=== PATIENT | male | born 1960 | race Caucasian/White ===

== ENCOUNTER 2017-02-07 12:51 | Observation (INO) | payer OTHER ==
[~2017-02-07] VITALS: Ht 165.1 cm; Wt 125.7 kg
[~2017-02-07 12:51] MED LIST: BACTROBAN NASAL1 GM; CITALOPRAM HBR20 MG PO; DILANTIN100 MG PO; FERROUS SULFAT325 M1 PO; LISINOPRIL10 MG PO; LOPRESSOR25 MG PO; MAGNESIUM OXID400 MG PO; MILK OF MA400 MG/5 M PO; MULTIVITAMINS1 EAC6 PO; NEXIUM40 MG PO; NORCO 5-325 TA1 EACH PO; PEPCID20 MG PO; PLAVIX75 MG PO; REGLAN10 MG PO; REQUIP1 MG PO; ULTRAM50 MG PO; ZOCOR40 MG PO; [UNRECOGNIZED DRUG - CODE] NEB
[2017-02-07] MEDS ORDERED: ASPIRIN 81 MG CHEW TAB PO STA (12:59)
[2017-02-07] MEDS ORDERED: MORPHINE SULFATE 4 MG/ML SYR IV STA (13:39)
[2017-02-07] MEDS ORDERED: ONDANSETRON HCL INJ 2 MG/ML VIAL IV STA (13:39)
[2017-02-07] MEDS ORDERED: MORPHINE SULFATE 2 MG/ML SYR IV NR (14:00)
[2017-02-07 14:07] LABS: BASOPHILS % 0.5 % (0.0-1.0); EOSINOPHILS # (AUTO) 0.3 (0.0-0.4); EOSINOPHILS % 3.6 % (0.0-6.0); HEMATOCRIT 31.7 % (38.2-49.6); HEMOGLOBIN 9.6 g/dL (14.0-18.0); LYMPHOCYTES # (AUTO) 1.1 (1.0-3.2); LYMPHOCYTES % 14.1 % (18.0-39.1); MEAN CORPUSCULAR HEMOGLOBIN 23.9 pg (28-32); MEAN CORPUSCULAR HGB CONC 30.3 g/dL (31-35); MEAN CORPUSCULAR VOLUME 78.9 fL (81-99); MONOCYTES # (AUTO) 0.9 (0.2-0.8); NEUTROPHILS # (AUTO) 5.7 (2.1-6.9); NEUTROPHILS % 70.4 % (38.7-80.0); PLATELET COUNT 290 x10e3/uL (140-360); RED BLOOD COUNT 4.02 x10e6/uL (4.3-5.7); RED CELL DISTRIBUTION WIDTH 19.1 % (11.7-14.4)
--- NOTE | 2017-02-07 14:28 | Diagnostic Imaging Report ---
PROCEDURE: CHEST SINGLE (PORTABLE) COMPARISON: None. INDICATIONS: CHEST PAIN FINDINGS: LUNGS: No consolidations or edema. PLEURA: No effusions or pneumothorax. HEART \T\ MEDIASTINUM: The heart is within normal size-limits. BONES \T\ SOFT TISSUES: No acute findings. Metallic needle fragment overlies the left shoulder lateral to the greater tuberosity of the humerus. CONCLUSION: No acute thoracic abnormality. Brigido Chase D.O. Dictated by: Brigido Chase D.O. on 02/07/2017 at 14:36 Electronically approved by: Brigido Chase D.O. on 02/07/2017 at 14:36
[2017-02-07 14:31] LABS: PROTHROMBIN TIME 13.7 seconds (11.9-14.5)
[2017-02-07 14:34] LABS: ALANINE AMINOTRANSFERASE 32 IU/L (0-55); ALBUMIN 3.4 g/dL (3.5-5.0); ALBUMIN/GLOBULIN RATIO 0.8 (0.8-2.0); ALKALINE PHOSPHATASE 83 IU/L (40-150); ANION GAP 13.7 mmol/L (8-16); BLOOD UREA NITROGEN 18 mg/dL (7-26); BUN/CREATININE RATIO 21 (6-25); CALCIUM 8.9 mg/dL (8.4-10.2); CARBON DIOXIDE 21 mmol/L (22-29); CHLORIDE 107 mmol/L (98-107); CREATINE KINASE 1057 IU/L (30-200); CREATININE, SERUM 0.87 mg/dL (0.72-1.25); EST GLOMERULAR FILTRATION RATE > 60 ML/MIN (60-); GLUCOSE 125 mg/dL (74-118); POTASSIUM 3.7 mmol/L (3.5-5.1); SODIUM 138 mmol/L (136-145)
[2017-02-07 14:40] LABS: TROPONIN I 0.023 ng/mL (0-0.300)
[2017-02-07] MEDS ORDERED: SODIUM CHLORIDE FLUSH 10 ML SYR INJ PRN (15:45)
[2017-02-07 16:58] LABS: CREATINE KINASE MB 7.7 ng/mL (0.00-5.00); TROPONIN I 0.016 ng/mL (0-0.300)
[2017-02-07] MEDS: MORPHINE SULFATE 2 MG/ML SYR IV PRN (17:05)
--- NOTE | 2017-02-07 17:51 | Consultation ---
DATE OF CONSULTATION: February 07, 2017 CARDIAC CONSULTATION REASON FOR CONSULTATION: Chest pain. HISTORY OF PRESENT ILLNESS: Mr. Fuentes is a 56-year-old gentleman with a past medical history of hypertension, hypercholesterolemia, coronary artery disease with a remote history of stenting, who has supposedly, according to himself, congestive heart failure and has had multiple recurrent admissions for chest pain and is not a very reliable historian. On chart review, it appears that also the patient has carried a diagnosis of perhaps schizophrenia and some mental disorder as well. He comes in complaining of chest pain, sharp in nature, moderate to severe, sternal, no radiations, no alleviating or exacerbating factors, and has been continuous for now over a day. He comes in with also complaints of bilateral achiness and calf cramps and reports that he had been in [place] in recent history, unclear as to the rationale why. Again, according to chart review, he appears to go between multiple hospitals and on my visit, despite his complaint of chest pain, appears very comfortable with stable hemodynamics and EKG showing normal sinus rhythm and no ischemia. He has underlying troponin of 0.022 for the first set. PAST MEDICAL HISTORY 1. Hypertension. 2. Hypercholesterolemia. 3. Schizophrenia. 4. Coronary artery disease with a history of prior stenting, unclear details. 5. Supposedly congestive heart failure, according to the patient. FAMILY HISTORY: Denies any family history of coronary disease. SOCIAL HISTORY: He denies smoking, alcohol or illicit drug use. ALLERGIES: HE SAYS HE IS ALLERGIC TO ASPIRIN, IBUPROFEN, NITROGLYCERIN, TYLENOL, ALEVE, AND ALL THOSE MEDICATIONS CAUSE HIM TO HAVE SWELLING. HOME MEDICATIONS: He says he only takes Plavix 75 mg daily but also appears to have been on Dilantin in the past for a seizure disorder, again very unclear what medications he takes. REVIEW OF SYSTEMS GENERAL: Denies any fevers, chills or any weight changes. HEENT: No headaches, visual complaints, sore throat, stuffy nose. RESPIRATORY: Has chronic exertional dyspnea class III. Denies pleuritic components of the chest pain. CARDIOVASCULAR: Chest pain as per HPI. Denies any palpitations, syncope. GI: Denies any abdominal pain, nausea, vomiting, bright red blood per rectum, melena, hematemesis. : Denies any dysuria, pyuria or change in urinary frequency. MUSCULOSKELETAL: Has chronic back pains, knee pains. Complaining of bilateral calf tenderness and aches in his muscles. ENDOCRINE: Denies any history of diabetes or thyroid issues. HEMATOLOGY: Positive for chronic anemia, but he is supposed to be taking iron supplementation. NEUROLOGIC: Denies any focal weakness, numbness. Does have a history of seizures, none in recent history. No stroke or TIA. REMAINDER: Negative otherwise. PHYSICAL EXAMINATION VITAL SIGNS: Height of 65 inches, weight of 278 pounds. BMI of 46.3. Temperature of 98.6, pulse of 70, respiratory rate of 16, blood pressure 116/86. IN GENERAL: This is a disheveled gentleman who is lying in bed and does not appear to be in any distress. HEENT: Pupils are equally round and reactive to light. Extraocular movements are intact. Oropharynx is clear. NECK: No elevation of jugular venous pulsation. No carotid bruits. CARDIOVASCULAR: Regular in rate and rhythm. Normal S1 and S2. A soft 1/6 systolic murmur at the left lower sternal border. LUNGS: Clear to auscultation bilaterally. There is no chest wall tenderness to palpation. ABDOMEN: Soft, nontender, obese, with normoactive bowel sounds. No hepatosplenomegaly. BACK: No costovertebral angle tenderness. EXTREMITIES: Warm with 1 to 2+ bilateral radial pulses, 1+ bilateral femoral pulses and absent pedal pulses. There is trace edema. NEUROLOGIC: He moves all 4 extremities. He has poor effort for movement, and it is difficult to ascertain further information. LABS: White count 8.1, hemoglobin 9.6, hematocrit of 31.7, platelets of 290. Sodium 138, potassium 3.7, chloride 107, bicarb 21, BUN 18, creatinine 0.87, glucose of 125. INR is 1.0. CK 1057, MB 7.9, troponin 0.0____. Albumin of 3.4. EKG reveals normal sinus rhythm, normal axis and no ST-T wave changes. Chest x-ray is unremarkable. DIAGNOSES 1. Sternal chest pain with no evidence of ischemia currently on EKG and strongly negative cardiac biomarkers despite long-standing ongoing chest pain, which kind of argue against an acute coronary syndrome at this present time, and has chronic recurrent hospitalizations with chest pain. 2. Remote history of coronary artery disease with a remote history of percutaneous coronary intervention in the past. 3. Chronic systolic heart failure, according to the patient. 4. Seizure disorder, suspect noncompliance with seizure medications. 5. Hypertension. 6. Obesity. 7. Medication noncompliance. PLAN/RECOMMENDATIONS 1. From a cardiovascular standpoint, will cycle his cardiac enzymes, check an echocardiogram to look at his left ventricular function. 2. Will put him back on his Plavix therapy. 3. Will put him back on his iron supplementation as the patient is currently with microcytic anemia. 4. Continue PPI therapy. 5. Aggressive risk-factor modification, medical therapy. 6. Will continue to follow this patient. Job#: [id number] EV
[2017-02-07] MEDS: FERROUS SULFATE 325 MG TAB PO SCH (18:14)
[2017-02-07] MEDS: MULTIVITAMINS/MINERALS TAB PO SCH (18:14)
[2017-02-07 18:24] VITALS: BP 156/92
[2017-02-07] MEDS: PHENYTOIN SODIUM EXT REL 100 MG CAP PO SCH (18:26)
[2017-02-07] MEDS: CARVEDILOL 3.125 MG TAB PO SCH (18:27)
[2017-02-07 18:52] VITALS: BP 156/92
[2017-02-07 20:00] VITALS: BP 120/67
[2017-02-08] VITALS: BP 114/59
[2017-02-08 02:03] LABS: CREATINE KINASE MB 5.6 ng/mL (0.00-5.00); TROPONIN I 0.008 ng/mL (0-0.300)
[2017-02-08 04:00] VITALS: BP 100/68
[2017-02-08] MEDS: MORPHINE SULFATE 2 MG/ML SYR IV PRN ×7 (05:10→23:51)
[2017-02-08 06:03] LABS: BASOPHILS % 0.5 % (0.0-1.0); EOSINOPHILS # (AUTO) 0.5 (0.0-0.4); EOSINOPHILS % 8.6 % (0.0-6.0); HEMATOCRIT 33.6 % (38.2-49.6); HEMOGLOBIN 10.1 g/dL (14.0-18.0); LYMPHOCYTES # (AUTO) 1.1 (1.0-3.2); MEAN CORPUSCULAR HEMOGLOBIN 24.4 pg (28-32); MEAN CORPUSCULAR HGB CONC 30.1 g/dL (31-35); MEAN CORPUSCULAR VOLUME 81.2 fL (81-99); MONOCYTES # (AUTO) 0.6 (0.2-0.8); MONOCYTES % 10.8 % (4.4-11.3); NEUTROPHILS # (AUTO) 3.7 (2.1-6.9); NEUTROPHILS % 61.8 % (38.7-80.0); PLATELET COUNT 274 x10e3/uL (140-360); RED BLOOD COUNT 4.14 x10e6/uL (4.3-5.7); RED CELL DISTRIBUTION WIDTH 19.4 % (11.7-14.4)
[2017-02-08 06:28] LABS: ALANINE AMINOTRANSFERASE 29 IU/L (0-55); ALBUMIN 3.2 g/dL (3.5-5.0); ALBUMIN/GLOBULIN RATIO 0.7 (0.8-2.0); ALKALINE PHOSPHATASE 90 IU/L (40-150); ANION GAP 12.9 mmol/L (8-16); BLOOD UREA NITROGEN 19 mg/dL (7-26); BUN/CREATININE RATIO 21 (6-25); CALCIUM 8.7 mg/dL (8.4-10.2); CARBON DIOXIDE 20 mmol/L (22-29); CHLORIDE 109 mmol/L (98-107); CHOL/HDL RATIO 4.8 (3.9-4.7); CHOLESTEROL 164 MD/DL (0-199); CREATINE KINASE 776 IU/L (30-200); CREATININE, SERUM 0.89 mg/dL (0.72-1.25); EST GLOMERULAR FILTRATION RATE > 60 ML/MIN (60-); GLUCOSE 176 mg/dL (74-118); HDL CHOLESTEROL 34 MG/DL (40-60); LDL CHOLESTEROL 112 MG/DL (60-130); POTASSIUM 3.9 mmol/L (3.5-5.1); SODIUM 138 mmol/L (136-145); TRIGLYCERIDES 90 MG/DL (0-149)
[2017-02-08 06:55] LABS: THYROID STIMULATING HORMONE 2.021 uIU/mL (0.350-4.940)
[2017-02-08 08:12] VITALS: BP 129/69
[2017-02-08 08:14] LABS: INR 1.25; PROTHROMBIN TIME 16.4 seconds (11.9-14.5)
[2017-02-08] MEDS: PHENYTOIN SODIUM EXT REL 100 MG CAP PO SCH ×2 (08:20→18:00)
[2017-02-08] MEDS: CLOPIDOGREL BISULFATE 75 MG TAB PO SCH (08:20)
[2017-02-08] MEDS: MULTIVITAMINS/MINERALS TAB PO SCH ×2 (08:20→18:00)
[2017-02-08] MEDS: FERROUS SULFATE 325 MG TAB PO SCH ×2 (08:20→18:00)
[2017-02-08] MEDS: CARVEDILOL 3.125 MG TAB PO SCH ×2 (08:20→18:00)
[2017-02-08] MEDS: PANTOPRAZOLE SOD 40 MG TABEC PO SCH (08:20)
[2017-02-08] MEDS ORDERED: HYDROCODONE/APAP 5MG-325MG TAB PO PRN (09:30)
[2017-02-08] MEDS ORDERED: FUROSEMIDE INJ 10 MG/ML 2 ML VIAL IV ONE (09:30)
--- NOTE | 2017-02-08 09:50 | History and Physical ---
CHIEF COMPLAINT: Chest pain and lower extremity swelling. HISTORY: Patient is a 56-year-old male visiting his mother here in [place]. The patient is from [facility]. He came in with chest pain. His CK level is high consistent with rhabdomyolysis. The patient is otherwise stable at this time. He is ambulatory. PAST MEDICAL HISTORY: Hypertension, hyperlipidemia, schizophrenia, coronary disease with previous stent, history of congestive heart failure. PAST SURGICAL HISTORY: Noncontributory. SOCIAL HISTORY: Patient does not smoke or use alcohol. No regular drugs. ALLERGIES: NAPROXEN, IBUPROFEN, ACETAMINOPHEN, ASPIRIN, NITROGLYCERIN, AND PENICILLIN. HOME MEDICATIONS: List reviewed. REVIEW OF SYSTEMS: As mentioned above. Bilateral lower extremity swelling. PHYSICAL EXAMINATION VITAL SIGNS: Temperature is 98, blood pressure 129/69, pulse rate 78, respirations 18. GENERAL: The patient is not in acute distress. He is ambulatory. HEENT: Normocephalic, atraumatic and anicteric. NECK: Supple grossly. PULMONARY: Diminished breath sounds. CARDIOVASCULAR: S1 and S2. Regular rate and rhythm. ABDOMEN: Soft and unremarkable. Obese. EXTREMITIES: No cyanosis or edema. NEUROLOGIC: No focal deficit. LABORATORY: WBC is 8, hemoglobin 10, hematocrit 32, platelets is 290,000. Chemistries: Sodium is 138, potassium 3.7, chloride 107, bicarb 21, BUN 18, creatinine 0.8, glucose 125. CK level is 1057. IMPRESSION 1. Rhabdomyolysis. 2. Chest pain. 3. Lower extremity pain. 4. Multiple chronic baseline problems. PLAN: IV Lasix. Continue with home medications. Pain control. Monitor CK level. The patient should be able to go home within 24-48 hours. Job#: [id number] KRISTIE
[2017-02-08] MEDS ORDERED: FUROSEMIDE INJ 10 MG/ML 4 ML VIAL IV ONE ×2 (11:30→14:30)
[2017-02-08 12:17] VITALS: BP 135/71
[2017-02-08 16:42] VITALS: BP 148/77
[2017-02-08] MEDS ORDERED: ENOXAPARIN SOD INJ 40 MG/0.4 ML SYR SC SCH (17:00)
[2017-02-08 19:45] VITALS: BP 132/84
[2017-02-08] MEDS: ONDANSETRON HCL INJ 2 MG/ML VIAL IV PRN (20:51)
[2017-02-09 00:59] VITALS: BP 155/78
[2017-02-09] MEDS: MORPHINE SULFATE 2 MG/ML SYR IV PRN ×3 (03:20→09:45)
[2017-02-09] MEDS: ONDANSETRON HCL INJ 2 MG/ML VIAL IV PRN (06:13)
[2017-02-09 06:45] LABS: ANION GAP 9.7 mmol/L (8-16); BLOOD UREA NITROGEN 19 mg/dL (7-26); BUN/CREATININE RATIO 23 (6-25); CALCIUM 8.4 mg/dL (8.4-10.2); CARBON DIOXIDE 25 mmol/L (22-29); CHLORIDE 107 mmol/L (98-107); CREATINE KINASE 471 IU/L (30-200); CREATININE, SERUM 0.83 mg/dL (0.72-1.25); EST GLOMERULAR FILTRATION RATE > 60 ML/MIN (60-); GLUCOSE 155 mg/dL (74-118); POTASSIUM 3.7 mmol/L (3.5-5.1); SODIUM 138 mmol/L (136-145)
[2017-02-09] MEDS: MULTIVITAMINS/MINERALS TAB PO SCH (08:36)
[2017-02-09] MEDS: FERROUS SULFATE 325 MG TAB PO SCH (08:36)
[2017-02-09] MEDS: CARVEDILOL 3.125 MG TAB PO SCH (08:36)
[2017-02-09] MEDS: PANTOPRAZOLE SOD 40 MG TABEC PO SCH (08:36)
[2017-02-09] MEDS: PHENYTOIN SODIUM EXT REL 100 MG CAP PO SCH (08:36)
[2017-02-09] MEDS: CLOPIDOGREL BISULFATE 75 MG TAB PO SCH (08:36)
== END 2017-02-09 10:40 | disposition home or self-care (01) ==
LOC: ER 12:51 → ERHOLD 17:23 → IMCU 17:25
PROVIDERS: ADMIT Internal Medicine; ATTEND Internal Medicine
DX: M62.82 Rhabdomyolysis (principal); R07.9 Chest pain, unspecified; I25.10 Atherosclerotic heart disease of native coronary artery without angina pectoris; Z95.5 Presence of coronary angioplasty implant and graft; I11.0 Hypertensive heart disease with heart failure; I50.22 Chronic systolic (congestive) heart failure; G40.909 Epilepsy, unspecified, not intractable, without status epilepticus; Z91.14 Patient's other noncompliance with medication regimen; E66.9 Obesity, unspecified; Z68.42 Body mass index [BMI] 45.0-49.9, adult
CPT/HCPCS: 36415 ×3; 71010; 80048; 80053 ×2; 80061; 82550 ×3; 82553 ×2; 84443; 84484 ×2; 85025 ×2; 85610 ×2; 85730; 93005; 93306; 93970; 96374; 96376; 99284; G0378 ×3; J1650; J1940; J2270 ×3; J2405 ×3

== ENCOUNTER 2017-08-16 19:13 | Emergency (ER) | payer OTHER ==
[~2017-08-16] VITALS: Ht 165.1 cm; Wt 125.6 kg
== END 2017-08-16 20:02 | disposition left against medical advice (07) ==
LOC: ER 19:13
DX: S80.01XA Contusion of right knee, initial encounter (principal); S20.219A Contusion of unspecified front wall of thorax, initial encounter; W18.39XA Other fall on same level, initial encounter; Y93.01 Activity, walking, marching and hiking; Y92.488 Other paved roadways as the place of occurrence of the external cause; F31.9 Bipolar disorder, unspecified; I25.2 Old myocardial infarction
CPT/HCPCS: 99281

== ENCOUNTER 2017-09-25 16:01 | Emergency (ER) | payer OTHER ==
[~2017-09-25] VITALS: Ht 165.1 cm; Wt 125.6 kg
[2017-09-25 16:27] VITALS: BP 135/84
== END 2017-09-25 16:33 | disposition left against medical advice (07) ==
LOC: ER 16:01
DX: R07.9 Chest pain, unspecified (principal)
CPT/HCPCS: 99283

== ENCOUNTER 2017-11-09 17:31 | Emergency (ER) | payer OTHER | END 2017-11-09 17:45 | disposition short-term general hospital (02) | LOC: ER 17:31 | DX: R07.9 Chest pain, unspecified (principal) ==

== ENCOUNTER 2019-04-24 20:55 | Emergency (ER) | payer MEDICARE, OTHER ==
[~2019-04-24] VITALS: Ht 165.1 cm; Wt 125.6 kg
--- NOTE | 2019-04-24 21:00 | NUR ---
PT REQUESTS TO LEAVE, DENIES NEED FOR CARDIAC WORKUP; ER MD IN TRIAGE SPEAKING TO PT; PT REFUSED TO SIGN AMA FORM
--- OUTSIDE RECORDS SUMMARY | 2019-04-24 21:10 | XMS REPORT ---
Author Author [facility] Address Unknown Phone Unavailable Support Name Relationship Address Phone FELECIA ASTORGA PRS [address] [place] [address] FELECIA ASTORGA PRS [address] [place] [address] NO, ONE PRS [address] [place] [address] NONE, OTHER PRS [address] [place] [address] FELECIA ASTORGA PRS [address] [place] [address] AMEYA, CARLOS PRS [address] [place] [address] NONE, GIVEN PRS [address] [place] [address] FELECIA ASTORGA PRS [address] [place] [address] CORRINE RCUZ PRS [address] [place] [address] MARFLORENCIO WARD PRS [address] [place] [address] FELECIA ASTORGA PRS [address] [place] [address] FELECIA ASTORGA PRS [address] [place] [address] RELATIVE, [place] [address] [place] [address] NO, ONE PRS [address] [place] [address] NONE, LIST REFUSED TO PRS [address] [place] [address] NONE, LIST REFUSED TO PRS [address] [place] [address] NONE, GIVEN PRS [address] [facility] [place] [address] NONE, OTHER PRS [address] [place] [address] FELECIA ASTORGA PRS [address] [place] [address] NO, OTHER PRS [address] [place] [address] Care Team Providers Care Raised Printer Name Role Phone UNKNOWN, REFERRING PP Unavailable BARRAGAN, DR LEE Unavailable Unavailable INÉS, DR Diomedes LOAIZA Unavailable Unavailable BA, DR CHAUDHARY Unavailable Unavailable PHILLIPS, DR Victor Manuel COOLEY Unavailable Unavailable JOB, DR Thomas MACIAS Unavailable Unavailable LAUREN, DR BRID Unavailable Unavailable KAELISHA, DR RUIZ Unavailable Unavailable Mandy RIGGS Unavailable Unavailable RYAN NEWSOME Unavailable Unavailable ANURADHA MARSHALL Unavailable Unavailable , DR UGALDE Unavailable Unavailable ANGELA, DR Nori ZHAO Unavailable Unavailable AN, DR MURRIETA Unavailable Unavailable PHILLIPS, DR ANDREWS Unavailable Unavailable LATANYA, DR ACUÑA Unavailable Unavailable Liss LARSEN Unavailable Unavailable Michell Harp Unavailable Unavailable LUIGI, WILL Unavailable Unavailable AZIZ, SAMEH Unavailable Unavailable FELIZ, DR MCFARLANE Unavailable Unavailable NITHYA, DR MISHRA Unavailable Unavailable FRANK, DR LIZ Unavailable Unavailable WANG, DR CUMMISN Unavailable Unavailable KERLINE, DR ARRIOLA Unavailable Unavailable VERITO HERNANDEZ Unavailable Unavailable PILOAVNIKAMA Unavailable Unavailable SADIA, DR Jeremie MORELAND Unavailable Unavailable BARRAGAN, CHANELLE RONNI Unavailable Unavailable GILBERTO ROSARIO Unavailable Unavailable AFUWAPE, LUKUMAN Unavailable Unavailable Shavonne WILSON Unavailable Unavailable BEEDSHAYNEORY Unavailable Unavailable ROOT, G MIRANDA Unavailable Unavailable GARCIA, JOHN Unavailable Unavailable PETHE SADASHIWendy PARK Unavailable Unavailable AGUILA WORLEY Unavailable Unavailable Jing HAMPTON Unavailable Unavailable PHILLIPSNicolas CADENA Unavailable Unavailable JONI FAJARDO Unavailable Unavailable Fausto Norton Unavailable Unavailable BRA, DR BELLE Unavailable Unavailable DANIA DONYA Unavailable Unavailable BULMARO MARTINEZ Unavailable Unavailable SILVA, - MSONTHI Unavailable Unavailable TUCKER HERNANDEZ M.D. Unavailable Unavailable NISREEN STEPHENSON M.D. Unavailable Unavailable Payers Payer Name Policy Type Policy Number Effective Date Expiration Date Problems This patient has no known problems. Allergies, Adverse Reactions, Alerts Allergy Name Allergy Type Status Severity Reaction(s) Onset Date Inactive Date Treating Clinician Comments Penicillins DA Active 2019-04-03 00:00:00 Sulfa (Sulfonamide Antibiotics) DA Active 2019-04-03 00:00:00 nitroglycerin DA Active SV 2019-04-03 00:00:00 aspirin DA Active AK 2019-04-03 00:00:00 acetaminophen DA Active SV 2019-04-03 00:00:00 ibuprofen DA Active SV 2019-04-03 00:00:00 naproxen DA Active ND 2019-04-03 00:00:00 tramadol DA Active ND 2019-04-03 00:00:00 nitroglycerin DA Active U 2019-04-01 00:00:00 aspirin DA Active U 2019-04-01 00:00:00 acetaminophen DA Active U 2019-04-01 00:00:00 ibuprofen DA Active U 2019-04-01 00:00:00 nitroglycerin DA Active AK 2019-03-31 00:00:00 aspirin DA Active AK 2019-03-31 00:00:00 ibuprofen DA Active AK 2019-03-31 00:00:00 acetaminophen DA Active AK 2019-03-31 00:00:00 Penicillins DA Active 2019-03-26 00:00:00 Sulfa (Sulfonamide Antibiotics) DA Active 2019-03-26 00:00:00 nitroglycerin DA Active 2019-03-26 00:00:00 aspirin DA Active AK 2019-03-26 00:00:00 acetaminophen DA Active 2019-03-26 00:00:00 ibuprofen DA Active SV 2019-03-26 00:00:00 naproxen DA Active MO 2019-03-26 00:00:00 tramadol DA Active MO 2019-03-26 00:00:00 nitroglycerin DA Active AK 2019-01-30 00:00:00 aspirin DA Active AK 2019-01-30 00:00:00 ibuprofen DA Active AK 2019-01-30 00:00:00 tramadol DA Active U 2019-01-27 00:00:00 nitroglycerin DA Active AK 2019-01-26 00:00:00 aspirin DA Active AK 2019-01-26 00:00:00 ibuprofen DA Active AK 2019-01-26 00:00:00 NSAIDS (Non-Steroidal Anti-Inflamma DA Active MO 2018-04-12 00:00:00 Penicillins DA Active MO 2018-04-12 00:00:00 nitroglycerin DA Active MO 2018-04-12 00:00:00 acetaminophen DA Active MO 2018-04-12 00:00:00 Penicillins DA Active SV 2018-04-02 00:00:00 Sulfa (Sulfonamide Antibiotics) DA Active SV 2018-04-02 00:00:00 nitroglycerin DA Active SV 2018-04-02 00:00:00 aspirin DA Active AK 2018-04-02 00:00:00 acetaminophen DA Active SV 2018-04-02 00:00:00 ibuprofen DA Active SV 2018-04-02 00:00:00 naproxen DA Active MO 2018-04-02 00:00:00 tramadol DA Active MO 2018-04-02 00:00:00 Penicillins DA Active SV 2018-03-19 00:00:00 Sulfa (Sulfonamide Antibiotics) DA Active SV 2018-03-19 00:00:00 nitroglycerin DA Active SV 2018-03-19 00:00:00 aspirin DA Active AK 2018-03-19 00:00:00 acetaminophen DA Active SV 2018-03-19 00:00:00 ibuprofen DA Active SV 2018-03-19 00:00:00 naproxen DA Active MO 2018-03-19 00:00:00 tramadol DA Active MO 2018-03-19 00:00:00 Penicillins DA Active SV 2018-03-09 00:00:00 Sulfa (Sulfonamide Antibiotics) DA Active SV 2018-03-09 00:00:00 nitroglycerin DA Active SV 2018-03-09 00:00:00 aspirin DA Active AK 2018-03-09 00:00:00 acetaminophen DA Active SV 2018-03-09 00:00:00 ibuprofen DA Active SV 2018-03-09 00:00:00 naproxen DA Active MO 2018-03-09 00:00:00 tramadol DA Active MO 2018-03-09 00:00:00 aspirin DA Active U 2018-01-19 00:00:00 ibuprofen DA Active AK 2018-01-19 00:00:00 naproxen DA Active AK 2018-01-19 00:00:00 Penicillins DA Active SV 2018-01-15 00:00:00 Sulfa (Sulfonamide Antibiotics) DA Active SV 2018-01-15 00:00:00 nitroglycerin DA Active SV 2018-01-15 00:00:00 aspirin DA Active AK 2018-01-15 00:00:00 acetaminophen DA Active SV 2018-01-15 00:00:00 ibuprofen DA Active SV 2018-01-15 00:00:00 naproxen DA Active MO 2018-01-15 00:00:00 tramadol DA Active MO 2018-01-15 00:00:00 nitroglycerin DA Active SV 2017-11-09 00:00:00 acetaminophen DA Active SV 2017-11-09 00:00:00 ibuprofen DA Active SV 2017-11-09 00:00:00 ASPRIN DA Active 2017-11-09 00:00:00 Penicillins DA Active 2017-10-31 00:00:00 Sulfa (Sulfonamide Antibiotics) DA Active 2017-10-31 00:00:00 aspirin DA Active AK 2017-10-31 00:00:00 naproxen DA Active MO 2017-10-31 00:00:00 tramadol DA Active MO 2017-10-31 00:00:00 nitroglycerin DA Active 2017-10-31 00:00:00 acetaminophen DA Active 2017-10-31 00:00:00 ibuprofen DA Active 2017-10-31 00:00:00 Penicillins DA Active 2017-09-25 00:00:00 Sulfa (Sulfonamide Antibiotics) DA Active 2017-09-25 00:00:00 nitroglycerin DA Active 2017-09-25 00:00:00 aspirin DA Active AK 2017-09-25 00:00:00 acetaminophen DA Active SV 2017-09-25 00:00:00 ibuprofen DA Active SV 2017-09-25 00:00:00 naproxen DA Active MO 2017-09-25 00:00:00 tramadol DA Active MO 2017-09-25 00:00:00 Medications This patient has no known medications. Encounters Start Date/Time End Date/Time Encounter Type Admission Type Attending [facility] Facility Care Department Encounter ID 2017-12-01 11:26:17 Inpatient [facility] [id number] 2017-11-30 21:47:17 Inpatient [facility] [id number] 2017-11-29 12:10:45 Inpatient [facility] [id number] 2017-11-29 00:00:00 Inpatient [facility] [id number] 2017-11-29 00:00:00 Inpatient [facility] [id number] 2017-11-29 00:00:00 Inpatient [facility] [id number] 2017-11-28 17:09:46 Inpatient [facility] [id number] 2017-11-28 00:00:00 Inpatient [facility] [id number] 2017-11-27 23:30:40 Inpatient [facility] [id number] 2016-04-07 01:20:00 Inpatient C [facility] [id number] 2019-04-24 15:41:00 2019-04-24 15:41:00 Emergency E MHNW MHNW [id number] 2019-04-20 04:22:00 2019-04-20 04:22:00 Outpatient E M[facility] MED [id number] 2019-04-19 13:03:00 2019-04-19 13:03:00 Emergency E MHTW MHTW [id number] 2019-04-16 22:06:00 2019-04-16 22:06:00 Emergency E MHNE MHNE [id number] 2019-04-12 21:38:00 2019-04-12 21:38:00 Outpatient E MHKM MED [id number] 2019-04-12 07:03:00 2019-04-12 07:03:00 Outpatient E [facility] MED [id number] 2019-04-11 22:53:00 2019-04-11 22:53:00 Emergency E MHFB MHFB [id number] 2019-04-03 14:13:00 2019-04-03 14:13:00 Emergency E MHSE MHSE [id number] 2019-03-26 07:37:00 2019-03-26 08:11:00 Emergency E ROSA BARRAGAN [facility] [id number] 2019-03-24 21:30:00 2019-03-24 21:30:00 Outpatient E MHFB MED [id number] 2019-03-21 22:39:00 2019-03-21 22:39:00 Emergency E MHSE MHSE [id number] 2019-03-18 20:44:00 2019-03-18 23:20:00 Emergency E JOSSE CONTE [facility] ECC [id number] 2019-03-17 19:08:00 2019-03-17 19:08:00 Outpatient E [facility]FB MED [id number] 2019-03-17 11:42:00 2019-03-17 11:42:00 Emergency E MHKM MHKM [id number] 2019-03-12 22:18:00 2019-03-13 14:40:00 Emergency E JET SCOTT [facility] E[facility] [id number] 2019-03-12 16:25:00 2019-03-12 16:25:00 Emergency E MHFB MHFB [id number] 2019-03-04 01:49:00 2019-03-05 13:35:00 Emergency E JACQUELINE LENORA [facility] [id number] 2019-03-03 14:09:00 2019-03-03 14:50:00 Emergency E GILBERTO KAISER [facility] [id number] 2019-02-28 19:08:00 2019-02-28 19:08:00 Emergency E MHKM MHKM [id number] 2019-02-24 21:18:00 2019-02-24 21:18:00 Inpatient E [facility]FB MED [id number] 2019-02-23 02:50:00 2019-02-23 12:34:00 Emergency E MARGE AGUILAR [facility] [id number] 2019-02-16 15:10:00 2019-02-16 15:10:00 Emergency E MHKM MHKM [id number] 2019-02-15 22:28:00 2019-02-15 22:28:00 Emergency E MHFB MHFB [id number] 2019-02-14 15:42:00 2019-02-14 15:42:00 Emergency E MHKM MHKM [id number] 2019-02-13 03:08:00 2019-02-13 03:08:00 Outpatient E [facility] [id number] 2019-02-09 19:18:00 2019-02-09 22:25:00 Emergency E JOSEPH OAKES [facility] [id number] 2019-02-08 00:39:00 2019-02-08 00:39:00 Outpatient E [facility] MED [id number] 2019-02-03 07:05:00 2019-02-03 07:05:00 Emergency E MHTW MHTW [id number] 2019-02-02 19:36:00 2019-02-02 22:09:00 Emergency E LENORA PHILLIPS [facility] [id number] 2019-02-01 22:24:00 2019-02-01 22:24:00 Emergency E MHMC MHMC [id number] 2019-02-01 14:59:00 2019-02-01 14:59:00 Emergency E MHKM MHKM [id number] 2019-01-19 15:39:00 2019-01-19 15:39:00 Emergency E MHSE MHSE 7514 2019-01-19 10:18:00 2019-01-19 10:18:00 Emergency E MHBL MHBL 7513 2019-01-18 18:59:00 2019-01-18 18:59:00 Emergency E MHFB MHFB [id number] 2019-01-18 16:55:00 2019-01-18 17:52:00 Emergency E JOSEPH OAKES [facility] [id number] 2019-01-17 22:11:00 2019-01-17 22:11:00 Outpatient E [facility] MED [id number] 2018-03-08 20:57:00 2018-03-08 21:55:00 Emergency E ROSA BARRAGAN [facility] [id number] 2018-02-22 16:39:00 2018-02-22 17:50:00 Emergency E ROSA BARRAGAN [facility] [id number] 2018-02-13 22:24:00 2018-02-13 22:43:00 Emergency E MARGE AGUILAR [facility] [id number] 2018-02-11 01:49:00 2018-02-12 12:30:00 Emergency E MARGE AGUILAR [facility] [id number] 2018-02-04 03:58:00 2018-02-04 04:18:00 Outpatient E BAJET [facility] [id number] 2018-02-03 22:50:00 2018-02-03 23:20:00 Outpatient E BAJET [facility] [id number] 2018-02-02 14:39:00 2018-02-02 16:35:00 Emergency E PHILLIPSLENORA [facility] [id number] 2018-01-27 04:32:00 2018-01-27 05:40:00 [facility] [id number] 2018-01-18 16:20:00 2018-01-18 18:55:00 Emergency E CECE MILLER [facility] [id number] 2018-01-13 09:09:00 2018-01-13 09:15:00 Emergency E CECE MILLER [facility] [id number] 2018-01-12 11:30:24 2018-01-12 11:30:24 Emergency [facility] [id number] 2018-01-12 07:13:37 2018-01-12 07:13:37 Emergency [facility] [id number] 2018-01-11 14:48:00 2018-01-11 15:44:00 Emergency E JOSSE CONTE [facility] [id number] 2018-01-04 22:19:00 2018-01-05 16:53:00 Outpatient MICHELL SCHMITZ [facility] [id number] 2017-12-28 15:41:00 2017-12-28 16:15:00 Emergency E JULIANA PHILLIPS [facility] [id number] 2017-12-28 00:00:00 2017-12-28 00:00:00 Outpatient [facility] [id number] 2017-11-27 22:19:21 2017-11-27 22:19:21 Emergency [facility] [id number] 2017-11-27 21:58:24 2017-11-27 21:58:24 Emergency [facility] [id number] 2017-11-27 21:47:52 2017-11-27 21:47:52 Emergency [facility] [id number] 2017-11-27 20:56:37 2017-11-27 20:56:37 Outpatient [facility] [id number] 2017-11-27 07:09:00 2017-11-27 07:35:00 Emergency E JULIANA PHILLIPS [facility] [id number] 2017-11-25 18:38:00 2017-11-26 14:01:00 Outpatient E DOMENICO RENAE [facility] TELE [id number] 2017-11-17 19:53:00 2017-11-17 19:53:00 Emergency [facility] [id number] 2017-11-09 13:50:00 2017-11-09 13:50:00 Emergency [facility] [id number] 2017-11-09 00:19:00 2017-11-09 00:58:00 Emergency E BARRAGAN, ROSA [facility] [id number] 2017-10-30 18:20:00 2017-10-30 19:40:00 Emergency E LENORA PHILLIPS [facility] [id number] 2017-10-28 23:13:00 2017-10-28 23:38:00 Emergency E JOSSE CONTE [facility] [id number] 2017-10-19 14:18:00 2017-10-19 14:55:00 Emergency E JULIANA PHILLIPS [facility] [id number] 2017-10-16 02:12:00 2017-10-16 02:50:00 Emergency E KYAW LARSEN [facility] [id number] 2017-09-30 00:00:00 2017-09-30 00:00:00 Outpatient [facility] [id number] 2017-09-26 04:26:28 2017-09-26 04:26:28 Emergency [facility] [id number] 2017-09-24 19:13:38 2017-09-24 19:13:38 Emergency [facility] [id number] 2017-09-24 18:23:48 2017-09-24 18:23:48 Emergency [facility] [id number] 2017-09-14 11:55:02 2017-09-14 11:55:02 Outpatient [facility] [id number] 2017-09-14 06:28:54 2017-09-14 06:28:54 Emergency [facility] [id number] 2017-09-14 04:49:51 2017-09-14 04:49:51 Emergency [facility] [id number] 2017-09-14 03:32:53 2017-09-14 03:32:53 Outpatient [facility] [id number] 2017-09-14 01:56:19 2017-09-14 01:56:19 Outpatient [facility] [id number] 2017-08-21 12:41:08 2017-08-21 12:41:08 Emergency [facility] [id number] 2017-08-21 10:09:55 2017-08-21 10:09:55 Emergency [facility] [id number] 2017-08-21 09:21:50 2017-08-21 09:21:50 Emergency [facility] [id number] 2017-08-21 07:41:58 2017-08-21 07:41:58 Outpatient [facility] [id number] 2017-08-08 13:58:00 2017-08-08 13:58:00 Emergency [facility] [id number] 2017-08-08 01:53:00 2017-08-08 01:53:00 Emergency [facility] [id number] 2017-08-04 03:38:16 2017-08-04 03:38:16 Emergency [facility] [id number] 2017-08-03 20:02:56 2017-08-03 20:02:56 Emergency [facility] [id number] 2017-08-03 19:25:26 2017-08-03 19:25:26 Emergency [facility] [id number] 2017-08-03 18:00:13 2017-08-03 18:00:13 Emergency [facility] [id number] 2017-07-22 08:56:00 2017-08-03 11:28:00 Inpatient E DENYS PIPER [facility] [id number] 2017-07-18 08:26:00 2017-07-18 11:00:00 Emergency E CONTEYUSEFEN [facility] [id number] 2017-07-08 18:55:00 2017-07-08 19:18:00 Emergency E INÉS JOSSE [facility] [id number] 2017-07-08 18:23:00 2017-07-08 18:32:00 Emergency E CONTE JOSSE [facility] [id number] 2017-06-27 02:20:00 2017-06-27 15:44:00 Emergency E BARRAGAN, ROSA [facility] [id number] 2017-06-21 20:11:00 2017-06-21 22:24:00 Emergency E ROSA BARRAGAN [facility] [id number] 2017-06-15 20:22:00 2017-06-16 12:00:00 Emergency E JACQUELINE JULIANA [facility] [id number] 2017-06-12 04:57:00 2017-06-12 07:25:00 Emergency E CONTE JOSSE [facility] [id number] 2017-06-12 04:12:00 2017-06-12 04:20:00 Emergency E CONTE JOSSE [facility] [id number] 2017-06-01 19:39:00 2017-06-01 19:58:00 Emergency E LENORA PHILLIPS [facility] [id number] 2017-05-26 17:44:00 2017-05-27 07:03:00 Emergency E JOSSE CONTE [facility] [id number] 2017-05-24 04:31:00 2017-05-24 05:00:00 Emergency E LARSENKYAW GIRARD [facility] [id number] 2017-05-23 20:28:00 2017-05-23 22:12:00 Emergency E LENORA PHILLIPS [facility] [id number] 2017-05-22 12:58:00 2017-05-22 13:35:00 Emergency E JULIANA PHILLIPS [facility] [id number] 2017 20:02:00 2017-05-15 12:47:00 Emergency E JULIANA PHILLIPS [facility] [id number] 2017-05-10 23:35:00 2017-05-12 12:42:00 Outpatient DANICA WEEMS [facility] TELE [id number] 2017-05-09 20:49:00 2017-05-09 23:05:00 Emergency E ROSA BARRAGAN [facility] [id number] 2017-05-01 13:19:00 2017-05-02 14:33:00 Outpatient E DOMENICO RENAE [facility] TELE [id number] 2017-04-25 14:17:00 2017-04-25 15:00:00 Emergency E JOSSE CONTE [facility] [id number] 2017-04-17 01:31:00 2017-04-19 17:23:00 Inpatient E GEOVANNIOLYSHALONDA MCGUIRE [facility] TELE [id number] 2017-04-08 16:49:00 2017-04-08 17:29:00 Emergency E MARIA G WANG [facility] [id number] 2017-03-21 13:42:00 2017-03-21 15:30:00 Emergency E JULIANA PHILLIPS [facility] [id number] 2017-03-14 08:12:00 2017-03-14 08:51:00 Emergency E KYAW LARSEN [facility] [id number] 2017-03-11 23:30:00 2017-03-12 21:33:00 Outpatient E KERLINE, ZEINAB [facility] TELE [id number] 2017-02-16 14:12:00 2017-02-17 05:00:00 Emergency E MARGE AGUILAR [facility] [id number] 2017-02-15 18:55:00 2017-02-15 22:08:00 Emergency E JET SCOTT [facility] [id number] 2017-02-13 22:18:00 2017-02-15 16:19:00 Inpatient C ZEINAB CHURCHILL [facility] TELE [id number] 2017-02-09 16:24:00 2017-02-09 16:38:00 Emergency E MARGE AGUILAR [facility] [id number] 2017-02-06 02:54:00 2017-02-06 02:54:00 Emergency E [facility] MED [id number] 2017-02-05 23:34:00 2017-02-05 23:34:[address] [facility] MED [id number] 2017-02-02 20:02:00 2017-02-02 20:02:[address] [facility] MED [id number] 2017-02-02 18:48:00 2017-02-02 18:48:00 Emergency E [facility] MED [id number] 2017-02-02 09:58:00 2017-02-02 16:00:00 Emergency E LENORA PHILLIPS [facility] [id number] 2017-01-30 12:54:00 2017-01-31 18:57:00 Emergency E JULIANA PHILLIPS [facility] [id number] 2017-01-29 01:58:00 2017-01-29 02:25:00 Emergency E JOSSE CONTE [facility] [id number] 2017-01-28 21:47:00 2017-01-29 00:16:00 Emergency E JET SCOTT [facility] [id number] 2017-01-22 20:03:00 2017-01-23 09:50:00 Emergency E MARGE AGUILAR [facility] [id number] 2017-01-16 09:21:00 2017-01-17 11:10:00 Emergency E ROSA BARRAGAN [facility] [id number] 2017-01-13 18:51:00 2017-01-15 11:51:00 Outpatient E ANICETO MCCULLOUGH [facility] TELE [id number] 2017-01-13 09:54:00 2017-01-13 09:57:00 [facility] [id number] 2017-01-13 00:39:00 2017-01-13 02:45:00 Emergency E ROSA BARRAGAN [facility] [id number] 2017-01-02 10:48:00 2017-01-03 23:23:00 Outpatient E DENYS PIPER [facility] [id number] 2016-12-23 23:20:00 2016-12-23 23:51:00 Emergency E ROSA BARRAGAN [facility] [id number] 2016-10-21 23:59:00 2016-10-21 23:59:00 Emergency E [facility] MED [id number] 2016-10-15 09:55:18 2016-10-15 09:55:18 Outpatient [facility] [id number] 2016-10-14 18:19:09 2016-10-14 18:19:09 Outpatient [facility] [id number] 2016-09-20 07:05:00 2016-09-20 07:05:00 Emergency E [facility] MED [id number] 2016-09-19 14:44:00 2016-09-19 14:44:00 Emergency E [facility] MED [id number] 2016-08-25 00:00:00 2016-08-25 00:00:00 Outpatient [facility] [id number] 2016-08-06 14:11:49 2016-08-06 14:11:49 Emergency [facility] [id number] 2016-08-01 03:21:34 2016-08-01 03:21:34 Emergency [facility] [id number] 2016-08-01 02:18:10 2016-08-01 02:18:10 Emergency [facility] [id number] 2016-08-01 02:02:10 2016-08-01 02:02:10 Emergency [facility] [id number] 2016-07-15 21:13:37 2016-07-15 21:13:37 Emergency [facility] [id number] 2016-06-30 16:08:00 2016-07-05 18:50:00 Inpatient Domenica BOSSMAN BARBRA [facility] MED [id number] 2016-04-08 21:20:00 2016-04-11 17:00:00 Outpatient [address] [facility] [id number] 2016-04-08 16:05:00 2016-04-08 16:05:00 Emergency E [facility] [id number] 2016-04-08 13:30:00 2016-04-08 13:30:00 Emergency E [facility] [id number] 2016-04-05 21:53:00 2016-04-05 19:15:00 Inpatient E [facility] [id number] 2015-06-23 20:30:00 2015-06-23 21:16:00 Emergency E CECE MILLER [facility] [id number] 2014-12-11 01:53:00 2014-12-11 04:44:00 Emergency E JET SCOTT [facility] [id number] Results Test Description Test Time Test Comments Text Results Atomic Results Result Comments BASIC METABOLIC PANEL 2019-04-18 21:57:00 SODIUM (test code=NA) 137.0 mmol/L 133-144 POTASSIUM (test code=K) 4.5 mmol/L 3.5-5.1 CHLORIDE (test code=CL) 105 mmol/L 95-105 CARBON DIOXIDE (test code=CO2) 27 mmol/L 21-32 ANION GAP (test code=GAP) 5.0 GAP calc 4.0-15.0 GLUCOSE (test code=GLU) 89 MG/DL 70-110 BLOOD UREA NITROGEN (test code=BUN) 16 MG/DL 7-18 CREATININE (test code=CREAT) 0.81 MG/DL 0.55-1.30 Results may be depressed if patient is takingN-Acetylcysteine (NAC) and Metamizole (Dipyrone). CALCIUM (test code=CA) 8.4 MG/DL 8.5-10.1 INDEX HEMOLYSIS (test code=HEMINDEX) 4 SMALL 50-200 MG Index/DL 1 NORMAL INDEX ICTERIC (test code=ICTINDEX) 1 NORMAL <2 MG Index/DL 1 NORMAL INDEX LIPEMIA (test code=LIPINDEX) 1 NORMAL <50 MG Index/DL 1 NORMAL TROPONIN I [id number] 21:56:00* Test Item Value Reference Range Comments TROPONIN I RAPID (test code=TROPIRAP) 0.00 NG/ML 0.00-0.07 An elevated troponin value alone is not sufficient todiagnose a myocardial infarction. Rather, the patient'sclinical presentation (history, physical exam) and ECGshould be used in conjunction with troponin in thediagnostic evaluation of suspected myocardial infarction. Aserial sampling protocol is recommended to facilitate theidentification of temporal changes in troponin levelscharacteristic of [place]. PROTHROMBIN [id number] 21:47:00* Test Item Value Reference Range Comments PT PATIENT (test code=PTP) 11.1 SECONDS 9.4-12.5 INTERNATIONAL NORMAL RATIO (test code=INR) 0.97 INR Unit 0.88-1.13 Therapeutic range for INR is dependent upon the situation.2.0-3.0 Prophylaxis / venous thromboembolism, Treatment of DVT, Acute myocardial infarction stroke prevention, Systemic embolism prevention in fibrillation3.0-4.5 AMI recurrence prevention, Systemic embolism prevention in prosthetic heart 3.0-5.4 AMI mortality reduction THROMBOPLASTIN TIME [id number] 21:47:00* Test Item Value Reference Range Comments THROMBOPLASTIN TIME PARTIAL (test code=PTT) 30.1 SECONDS 24-37.7 THERAPEUTIC RANGE FOR UNFRACTIONATED HEPARIN=50.5-83.6 SEC This test is not recommended to monitor low molecularweight heparin or danaparoid. Order LMWH test COLLECTION THROUGH LINES THAT HAVE BEEN PREVIOUSLY FLUSHEDWITH HEPARIN SHOULD BE AVOIDED DUE TO POSSIBLE HEPARINCONTAMINATION - XR CHEST 1 [id number] 21:39:00 FAX: Barbra Castrejon DO [phone] Portal: E St: PRE Patient Na me: RIZWANFELECIA Unit No: [id number] EXAMS: CPT CODE: [id number] XR CHEST 1 V 16764 Examination: One view chest x- ray Location code: H60 Comparison: 04/03/2019 Discussion: Clinical history is remarkable for chest pain. Heart is normal in size. Lungs are clear of consolidating infiltrates. No masses, nodules or effusions are noted. When compared to the prior milo dy there has been no interval change. Impression: 1. Stable chest x-ray without evidence for acute infiltrates or effusions. at 213 Reported and signed by: Johnathon Sauer MD CC: Barbra Castrejon DO Dic tated Date/Time: 04/18/2019 (2138)Technologist: Iesha Moraes Transcribed Date/Time: 04/18/2019 (2138) By: Ana [email or web address] Orig Print D/T: S: 04/18/2019 (2141) [facility] NAME: RIZWANFELECIA [address] [place] [address] PHYS: - Barbra Castrejon, [place] [address] : 1960 AGE: 58 SEX: M LOC: B.ERS PHONE #: [phone] EXAM DATE: 04/18/2019 STATUS: PRE ER FAX #: [phone] RAD NO: DC Dt: PAGE 1 Signed Report CBC W/O [id number] 21:33:00* Test Item Value Reference Range Comments WHITE BLOOD CELL (test code=WBC) 9.7 K/mm3 4.1-12.1 RED BLOOD CELL (test code=RBC) 4.23 M/mm3 3.8-5.5 HEMOGLOBIN (test code=HGB) 11.9 G/DL 10.6-15.8 HEMATOCRIT (test code=HCT) 37.4 % 31.8-47.4 MEAN CELL VOLUME (test code=MCV) 88.4 fL 80.1-101.1 MEAN CELL HGB (test code=MCH) 28.1 pg 25.3-35.3 MEAN CELL HGB CONCETRATION (test code=MCHC) 31.8 G/DL 32.7-35.1 RED CELL DISTRIBUTION WIDTH (test code=RDW) 15.6 % 12.2-16.4 PLATELET COUNT (test code=PLT) 267 K/mm3 155-337 MEAN PLATELET VOLUME (test code=MPV) 9.2 fL 7.6-10.4 - XR CHEST 2 [id number] 21:19:00Patient Name: FELECIA ASTORGA Unit No: [id number] EXAMS: CPT: [id number] XR CHEST 2 V 59720 CHEST 2 VIEWS. HISTORY: Chest Pain COMPARISON: none FINDINGS: The lungs are well aerated and clear. The cardiomediastinal silhouette is normal. No pleural effusion is seen. Bony thorax is unremarkable. IMPRESSION: No acute abnormality is detected. 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 [address] [facility] : 1960 Age: 58 Sex: [place] [address] Loc: N.ERS Exam Date: 04/16/2019 Status: PRE ER PH: FAX: PAGE 1 Signed Report [id number] 01:57:00* Test Item Value Reference Range Comments TROPONIN-I (test code=TROPI) <0.02 NG/ML 0.00-0.06 REFERENCE RANGE TROPONIN I HEALTHY INDIVIDUALS: <0.06 ng/mL R/O ISCHEMIA: 0.07 - 0.60 ng/mL CUT-OFF RANGE FOR AMI: 0.60 - 1.5 ng/mL [id number] 23:23:00* Test Item Value Reference Range Comments TROPONIN-I (test code=TROPI) <0.02 NG/ML 0.00-0.06 REFERENCE RANGE TROPONIN I HEALTHY INDIVIDUALS: <0.06 ng/mL R/O ISCHEMIA: 0.07 - 0.60 ng/mL CUT-OFF RANGE FOR AMI: 0.60 - 1.5 ng/mL DRUGS OF ABUSE SCREEN [id number] 19:31:00* Test Item Value Reference Range Comments URN COCAINE (test code=COCAURN) NEGATIVE NEGATIVE Cocaine cut-off concentration: 300 ng/mL URN CANNABINOIDS (test code=CANNABURN) NEGATIVE NEGATIVE Cannabinoids cut-off concentration: 50 ng/mL URN AMPHETAMINE (test code=AMPHETURN) NEGATIVE NEGATIVE Amphetamine cut-off concentration: 1000 ng/mL URN BARBITURATE (test code=BARBITURN) NEGATIVE NEGATIVE Barbiturate cut-off concentration: 200 ng/mL URN BENZODIAZEPINE (test code=BENZOURN) NEGATIVE NEGATIVE Benzodiazepine cut- off concentration: 200 ng/mL URN OPIATES (test code=OPIATURN) NEGATIVE NEGATIVE Opiates cut-off concentration: 200 ng/mL URN PHENCYCLIDINE (PCP) (test code=PHENCURN) NEGATIVE NEGATIVE Phencyclidine(PCP) cut-off concentration: 25 ng/ml URN METHADONE (test code=METHAURN) NEGATIVE NEGATIVE Methadone cut-off concentration: 300 ng/mL PROTHROMBIN [id number] 17:14:00* Test Item Value Reference Range Comments PROTHROMBIN TIME PATIENT (test code=PTP) 11.7 SECONDS 9.9-12.8 INTERNATIONAL NORMAL RATIO (test code=INR) 1.0 0.89-1.14 THE INR IS TO BE USED ONLY FOR MONITORING ORAL ANTICOAGULANTTHERAPY. THE FOLLOWING ARE SUGGESTED RANGES FROM THEAMERICAN COLLEGE OF CHEST PHYSICIANS:INDICATION INR VALUEPROPHYLAXIS OF VENOUS THROMBOSIS (ORTHOPEDIC SURGERY) 2.0 - 3.0PROPHYLAXIS OF VENOUS THROMBOSIS (OTHER THAN HIGH-RISK SURGERY) 2.0 - 3.0TREATMENT OF DEEP VEIN THROMBOSIS OR PULMONARY EMBOLISM 2.0 - 3.0PREVENTION OF SYSTEMIC EMBOLISM TISSUE HEART VALVES 2.0 - 3.0 ACUTE MYOCARDIAL INFARCTION (TO PREVENT SYSTEMIC EMBOLISM) 2.0 - 3.0 ACUTE MYOCARDIAL INFARCTION (TO PREVENT RECURRENT INFARCT) 2.5 - 3.0 VALVULAR HEART DISEASE 2.0 - 3.0 ATRIAL FIBRILATION 2.0 - 3.0BILEAFLET MECHANICAL VALVE IN AORTIC POSITION 2.0 - 3.0MECHANICAL PROSTHETIC VALVES (HIGH RISK) 2.5 - 3.5PRESENCE OF LUPUS ANTICOAGULANT OR ANTIPHOSPHOLIPID ANTIBODIES 2.5 - 3.5 THROMBOPLASTIN TIME [id number] 17:14:00* Test Item Value Reference Range Comments THROMBOPLASTIN TIME PARTIAL (test code=PTT) 31.50 SECONDS 25.86-36.07 [facility] Therapeutic Range - APTT of 55.8-85.4 secondscorrelates with plasma heparin concentration of 0.2-0.4 u/mL New range effective - 04/18/2016 COMPREHENSIVE METABOLIC [id number] 16:47:00* Test Item Value Reference Range Comments SODIUM (test code=NA) 139 mmol/l 134.0-147.0 POTASSIUM (test code=K) 4.2 mmol/L 3.6-5.2 CHLORIDE (test code=CL) 105 mmol/l 98.0-107.0 CARBON DIOXIDE (test code=CO2) 27.1 mmol/l 21.0-33.0 ANION GAP (test code=GAP) 11.1 0-20 GLUCOSE (test code=GLU) 107 mg/dl 70.0-110.0 BLOOD UREA NITROGEN (test code=BUN) 14 mg/dl 7.0-18.0 CREATININE (test code=CREAT) 0.82 mg/dL 0.60-1.30 GFR NON BLACK (test code=GFRNONBLACK) 102 mL/min 80-90 GFR BLACK (test code=GFRBLACK) 123 mL/min 97-109 TOTAL PROTEIN (test code=PROT) 6.9 GM/DL 6.0-8.1 ALBUMIN (test code=ALB) 3.1 gm/dL 3.2-4.7 CALCIUM (test code=CA) 8.7 mg/dl 8.0-10.5 BILIRUBIN TOTAL (test code=BILT) 0.1 mg/dl 0.0-1.0 SGOT/AST (test code=AST) 15 Units/L 15.0-37.0 SGPT/ALT (test code=ALT) 22 Units/L 12.0-78.0 ALKALINE PHOSPHATASE TOTAL (test code=ALKP) 74 Units/L 50.0-136.0 [id number] 16:47:00* Test Item Value Reference Range Comments LIPASE (test code=LIP) 131 Units/L 65.0-230.0 B-TYPE NATRIURETIC [id number] 16:47:00* Test Item Value Reference Range Comments B-TYPE NATRIURETIC PEPTIDE (test code=BNP) 35.8 PG/ML 5-100 CARDIAC ENZYMES [id number] 16:47:00* Test Item Value Reference Range Comments CREATINE KINASE (CK) (test code=CK) 137 Units/L 39-308 TROPONIN-I (test code=TROPI) <0.02 NG/ML 0.00-0.06 REFERENCE RANGE TROPONIN I HEALTHY INDIVIDUALS: <0.06 ng/mL R/O ISCHEMIA: 0.07 - 0.60 ng/mL CUT-OFF RANGE FOR AMI: 0.60 - 1.5 ng/mL COMPREHENSIVE METABOLIC [id number] 16:44:00* Test Item Value Reference Range Comments SODIUM (test code=NA) 139 mmol/l 134.0-147.0 POTASSIUM (test code=K) 4.2 mmol/L 3.6-5.2 CHLORIDE (test code=CL) 105 mmol/l 98.0-107.0 CARBON DIOXIDE (test code=CO2) 27.1 mmol/l 21.0-33.0 ANION GAP (test code=GAP) 11.1 0-20 GLUCOSE (test code=GLU) mg/dl 70.0-110.0 BLOOD UREA NITROGEN (test code=BUN) mg/dl 7.0-18.0 CREATININE (test code=CREAT) mg/dL 0.60-1.30 GFR NON BLACK (test code=GFRNONBLACK) mL/min 80-90 GFR BLACK (test code=GFRBLACK) mL/min 97-109 TOTAL PROTEIN (test code=PROT) gm/dL 6.4-8.2 ALBUMIN (test code=ALB) gm/dl 3.2-4.7 CALCIUM (test code=CA) mg/dl 8.0-10.5 BILIRUBIN TOTAL (test code=BILT) mg/dl 0.0-1.0 SGOT/AST (test code=AST) Units/L 15.0-37.0 SGPT/ALT (test code=ALT) Units/L 12.0-78.0 ALKALINE PHOSPHATASE TOTAL (test code=ALKP) Units/L 50.0-136.0 [id number] 16:44:00* Test Item Value Reference Range Comments LIPASE (test code=LIP) Units/L 65.0-230.0 B-TYPE NATRIURETIC [id number] 16:44:00* Test Item Value Reference Range Comments B-TYPE NATRIURETIC PEPTIDE (test code=BNP) 35.8 PG/ML 5-100 CARDIAC ENZYMES [id number] 16:44:00* Test Item Value Reference Range Comments CREATINE KINASE (CK) (test code=CK) Units/L 39-308 TROPONIN-I (test code=TROPI) NG/ML 0.00-0.06 COMPREHENSIVE METABOLIC [id number] 16:38:00* Test Item Value Reference Range Comments SODIUM (test code=NA) 139 mmol/l 134.0-147.0 POTASSIUM (test code=K) 4.2 mmol/L 3.6-5.2 CHLORIDE (test code=CL) 105 mmol/l 98.0-107.0 CARBON DIOXIDE (test code=CO2) 27.1 mmol/l 21.0-33.0 ANION GAP (test code=GAP) 11.1 0-20 GLUCOSE (test code=GLU) mg/dl 70.0-110.0 BLOOD UREA NITROGEN (test code=BUN) mg/dl 7.0-18.0 CREATININE (test code=CREAT) mg/dL 0.60-1.30 GFR NON BLACK (test code=GFRNONBLACK) mL/min 80-90 GFR BLACK (test code=GFRBLACK) mL/min 97-109 TOTAL PROTEIN (test code=PROT) gm/dL 6.4-8.2 ALBUMIN (test code=ALB) gm/dl 3.2-4.7 CALCIUM (test code=CA) mg/dl 8.0-10.5 BILIRUBIN TOTAL (test code=BILT) mg/dl 0.0-1.0 SGOT/AST (test code=AST) Units/L 15.0-37.0 SGPT/ALT (test code=ALT) Units/L 12.0-78.0 ALKALINE PHOSPHATASE TOTAL (test code=ALKP) Units/L 50.0-136.0 [id number] 16:38:00* Test Item Value Reference Range Comments LIPASE (test code=LIP) Units/L 65.0-230.0 B-TYPE NATRIURETIC [id number] 16:38:00* Test Item Value Reference Range Comments B-TYPE NATRIURETIC PEPTIDE (test code=BNP) PG/ML 5-100 CARDIAC ENZYMES [id number] 16:38:00* Test Item Value Reference Range Comments CREATINE KINASE (CK) (test code=CK) Units/L 39-308 TROPONIN-I (test code=TROPI) NG/ML 0.00-0.06 CBC W/AUTO [id number] 16:34:00* Test Item Value Reference Range Comments WHITE BLOOD CELL (test code=WBC) 7.0 K/mm3 4.5-11.0 RED BLOOD CELL (test code=RBC) 3.70 M/mm3 4.40-5.90 HEMOGLOBIN (test code=HGB) 10.3 gm/dL 13.0-17.0 HEMATOCRIT (test code=HCT) 33.2 % 36.0-48.0 MEAN CELL VOLUME (test code=MCV) 89.7 UM3 80.0-94.0 MEAN CELL HGB (test code=MCH) 27.8 UUG 25.5-32.5 MEAN CELL HGB CONCETRATION (test code=MCHC) 31.0 gm/dL 29.0-35.5 RED CELL DISTRIBUTION WIDTH (test code=RDW) 13.6 % 11.5-15.0 RED CELL DISTRIBUTION WIDTH SD (test code=RDW-SD) 44.2 fL 34.8-50.2 PLATELET COUNT (test code=PLT) 263 K/mm3 150-400 MEAN PLATELET VOLUME (test code=MPV) 9.2 fl 7.4-10.4 NEUTROPHIL % (test code=NT%) 73.7 % 49.0-76.0 IMMATURE GRANULOCYTE % (test code=IG%) 0.3 % 0.0-0.4 LYMPHOCYTE % (test code=LY%) 14.8 % 23.0-38.0 MONOCYTE % (test code=MO%) 7.7 % 1.0-10.0 EOSINOPHIL % (test code=EO%) 3.1 % 1.0-5.0 BASOPHIL % (test code=BA%) 0.4 % 0.0-1.0 NEUTROPHIL # (test code=NT#) 5.2 K/mm3 2.4-6.3 IMMATURE GRANULOCYTE # (test code=IG#) 0.02 x10 3/uL 0.00-0.07 LYMPHOCYTE # (test code=LY#) 1.0 K/mm3 1.2-4.0 MONOCYTE # (test code=MO#) 0.5 K/mm3 0.0-0.6 EOSINOPHIL # (test code=EO#) 0.2 K/MM3 0.0-0.7 BASOPHIL # (test code=BA#) 0.0 K/mm3 0.0-0.2 - XR CHEST 1 [id number] 16:04:00 FAX: Erika Brower MD Portal: St: PRE Name: FELECIA RAMIREZ [facility] : [birth year] Age/S: 58/M [address] [facility] Unit #: [id number] Loc: [address] Phys: [place] [address] Acct: [id number] Dis Date: Status: PRE ER PHONE #: [phone] Exam Date: 04/03/2019 1555 FAX #: [phone] Reason: CP EXAMS: CPT CODE: [id number] XR CHEST 1 V 79958 Site ID: [id number] HISTORY: Chest pain COMPARISON: Chest x-ray the prior day F INDINGS: The lungs are clear and normally expanded. The heart and pulmonary vasculature is normal. Osseous structures are unremarkable. IMPRESSION: Negative chest X-ray. at 16 04 Reported and signed by: Seth Cavazos M.D. CC: Erika Sharif MD Technolog ist: JACQUES HAND Trnscrd Date/Time/By : 04/03/2019 (1604) : By: Ana [email or web address] PAGE 1 Sig shravan Report FAX: Erika Brower MD Portal: St: PRE Name: FELECIA ASTORGA : 1960 Age/S: 58/M [address] [facility] Unit #: [id number] Loc: [address] Phys: [place] [id number] Acct: [id number] Dis Date: Status: PRE ER PHONE #: [phone] Exam Date: 04/03/2019 2715 FAX #: [phone] Reason: CP EXAMS: CPT CODE: [id number] XR CHEST 1 V 36674 < Continued> Orig Print D/T: S: 04/03/2019 (1607) PAGE 2 Signed Report [id number] 11:14:00* Test Item Value Reference Range Comments GLUBED (test code=GLUBED) 172 mg/dL 74-106 Performed by certified vallez filter operator at [facility] HGB [id number] 21:13:00* Test Item Value Reference Range Comments HEMOGLOBIN (test code=HGB) 9.9 gram/dL 13.0-17.5 HEMATOCRIT (test code=HCT) 31.8 % 42.0-52.0 [id number] 20:30:00* Test Item Value Reference Range Comments GLUBED (test code=GLUBED) 101 mg/dL 74-106 Performed by certified vallez filter operator at [facility] [id number] 19:30:00* Test Item Value Reference Range Comments TROPONIN-I (test code=TROPI) <0.015 ng/mL 0-0.045 COMMENTS TO CONTRACT ADMINISTRATOR: COLLECT 3 HOURS AFTER PREVIOUS [id number] 16:23:00* Test Item Value Reference Range Comments TROPONIN-I (test code=TROPI) <0.015 ng/mL 0-0.045 COMMENTS TO CONTRACT ADMINISTRATOR: COLLECT 3 HOURS AFTER PREVIOUS SAMPLEHGB [id number] 15:40:00* Test Item Value Reference Range Comments HEMOGLOBIN (test code=HGB) 10.0 gram/dL 13.0-17.5 HEMATOCRIT (test code=HCT) 32.6 % 42.0-52.0 [id number] 15:40:00* Test Item Value Reference Range Comments GLUBED (test code=GLUBED) 90 mg/dL 74-106 Performed by certified vallez filter operator at [facility] - XR CHEST 1 [id number] 12:52:00 FAX: Ladonna Frias MD Portal: St: [facility] FAX: Juventino Gonzalez MD [phone] Name: FELECIA ASTORGA [facility] : 1960 Age/S: 58/M [address] [facility] Unit #: [id number] Loc: [place] [address] Phys: Juventino Gonzalez MD Acct: [id number] Dis Date: Status: ADM IN PHONE #: [phone] Exam Date: 04/02/2019 1249 FAX #: [phone] Reason: cough EXAMS: CPT CODE: [id number] XR CHEST 1 V 21307 HISTORY: Cough. COMPARISON: March 21, 2019. Location: [facility]. No acute infiltrates, effusion or congestion is noted. Mild cardiomegaly. IMPRESSION: No acute infiltrates, effusion or congestion. at 1256 Reported and signed by: Juan Pablo Knapp M.D. CC: Ladonna Frias MD; Juventino Gonzalez MD Technologist: RT AGUSTO(R) Trnchip Date/Time/By: 04/02/2019 (6521) : By: Ana [email or web address] Orig Print D/T: S: 04/02/2019 (2212) PAGE 1 Signed Report [id number] 12:35:00* Test Item Value Reference Range Comments GLYCOSYLATED HEMOGLOBIN (HA1C) (test code=GLYHGB) 6.1 % HbA1 SUGGESTED DIAGNOSIS: HbA1C (%) Diabetic >6.4Prediabetes 5.7 - 6.4Normal <5.7 ESTIMATED AVERAGE GLUCOSE (test code=EAG) 128 MG/DL PROTHROMBIN [id number] 12:07:00* Test Item Value Reference Range Comments PROTHROMBIN TIME PATIENT (test code=PTP) 11.1 seconds 9.0-14.0 INTERNATIONAL NORMAL RATIO (test code=INR) 0.9 0.8-1.2 The therapeutic range for oral anticoagulant therapy formost indications is an international normalized ratio (INR)of between 2.0 and 3.0. The recommended therapeutic INRrange for various clinical situations is listed below: Clinical Situation INR range Pulmonary e mbolism treatment (2.0-3.0)Venous thrombosis treatmentVenous thrombosis prophylaxis (high risk surgery)Prevention of systemic embolism from: Acute myocardial infarction Valvular heart disease Atrial fibrillation Mechanical prosthetic heart valves (2.5-3.5) IS PATIENT ON ANTICOAGULANTS? NTHROMBOPLASTIN TIME [id number] 12:07:00* Test Item Value Reference Range Comments THROMBOPLASTIN TIME PARTIAL (test code=PTT) 22.5 seconds 25.0-36.5 IS PATIENT ON ANTICOAGULANTS? NBASIC METABOLIC [id number] 10:16:00* Test Item Value Reference Range Comments SODIUM (test code=NA) 140 mmol/L 136-145 POTASSIUM (test code=K) 4.1 mmol/L 3.5-5.1 CHLORIDE (test code=CL) 110.0 mmol/L 98-107 CARBON DIOXIDE (test code=CO2) 22.0 mmol/L 21-32 ANION GAP (test code=GAP) 12.1 10-20 GLUCOSE (test code=GLU) 91 mg/dL 74-106 BLOOD UREA NITROGEN (test code=BUN) 17 mg/dL 7-18 GLOMERULAR FILTRATION RATE (test code=GFR) > 60 mL/min >=60 Estimated GFR by using Modified MDRD formula.Chronic kidney disease is defined as either kidney damageor GFR <60 mL/min/1.73 m2 for >3 months. CREATININE (test code=CREAT) 0.80 mg/dL 0.7-1.3 BUN/CREATININE RATIO (test code=BUN/CREA) 21.3 10-20 CALCIUM (test code=CA) 8.3 mg/dL 8.5-10.1 HEPATIC FUNCTION [id number] 10:16:00* Test Item Value Reference Range Comments TOTAL PROTEIN (test code=PROT) 7.2 gram/dL 6.4-8.2 ALBUMIN (test code=ALB) 3.0 g/dL 3.4-5.0 GLOBULIN (test code=GLOB) 4.2 gram/dL 2.7-4.2 ALBUMIN/GLOBULIN RATIO (test code=A/G) 0.7 0.75-1.50 BILIRUBIN TOTAL (test code=BILT) 0.20 mg/dL 0.0-1.0 BILIRUBIN DIRECT (test code=BILD) 0.06 mg/dL 0.0-0.20 SGOT/AST (test code=AST) 17 IUnit/L 15-37 SGPT/ALT (test code=ALT) 17 IUnit/L 12-78 ALKALINE PHOSPHATASE TOTAL (test code=ALKP) 77 IUnit/L 45-117 Note change in reference range due to change in reagent. [id number] 10:16:00* Test Item Value Reference Range Comments LIPASE (test code=LIP) 89 U/L 73.0-393.0 [id number] 10:16:00* Test Item Value Reference Range Comments TROPONIN-I (test code=TROPI) <0.015 ng/mL 0-0.045 BASIC METABOLIC [id number] 10:06:00* Test Item Value Reference Range Comments SODIUM (test code=NA) 140 mmol/L 136-145 POTASSIUM (test code=K) 4.1 mmol/L 3.5-5.1 CHLORIDE (test code=CL) 110.0 mmol/L 98-107 CARBON DIOXIDE (test code=CO2) mmol/L 21-32 ANION GAP (test code=GAP) 10-20 GLUCOSE (test code=GLU) mg/dL 74-106 BLOOD UREA NITROGEN (test code=BUN) mg/dL 7-18 GLOMERULAR FILTRATION RATE (test code=GFR) mL/min >=60 CREATININE (test code=CREAT) mg/dL 0.7-1.3 BUN/CREATININE RATIO (test code=BUN/CREA) 10-20 CALCIUM (test code=CA) mg/dL 8.5-10.1 HEPATIC FUNCTION [id number] 10:06:00* Test Item Value Reference Range Comments TOTAL PROTEIN (test code=PROT) gram/dL 6.4-8.2 ALBUMIN (test code=ALB) g/dL 3.4-5.0 GLOBULIN (test code=GLOB) gram/dL 2.7-4.2 ALBUMIN/GLOBULIN RATIO (test code=A/G) 0.75-1.50 BILIRUBIN TOTAL (test code=BILT) mg/dL 0.0-1.0 BILIRUBIN DIRECT (test code=BILD) mg/dL 0.0-0.20 SGOT/AST (test code=AST) IUnit/L 15-37 SGPT/ALT (test code=ALT) IUnit/L 12-78 ALKALINE PHOSPHATASE TOTAL (test code=ALKP) IUnit/L 45-117 [id number] 10:06:00* Test Item Value Reference Range Comments LIPASE (test code=LIP) U/L 73.0-393.0 [id number] 10:06:00* Test Item Value Reference Range Comments TROPONIN-I (test code=TROPI) ng/mL 0-0.045 CBC W/O [id number] 09:47:00* Test Item Value Reference Range Comments WHITE BLOOD CELL (test code=WBC) 7.3 K/mm3 4.5-12.5 RED BLOOD CELL (test code=RBC) 3.80 mill/mm3 4.0-5.8 HEMOGLOBIN (test code=HGB) 10.3 gram/dL 13.0-17.5 HEMATOCRIT (test code=HCT) 33.4 % 42.0-52.0 MEAN CELL VOLUME (test code=MCV) 87.9 fL 80-98 MEAN CELL HGB (test code=MCH) 27.1 picogram 27.0-33.0 MEAN CELL HGB CONCETRATION (test code=MCHC) 30.8 gram/dL 33.0-36.0 RED CELL DISTRIBUTION WIDTH (test code=RDW) 13.7 % 11.6-16.2 PLATELET COUNT (test code=PLT) 256 K/mm3 150-450 MEAN PLATELET VOLUME (test code=MPV) 9.3 fL 6.7-11.0 - XR CHEST 1 [id number] 16:59:00 Portal: [facility]: REG Name: Jim KALEFELECIA [facility] : [birth year] Age/S: 58/M [address] Unit #: [id number] Loc: [place] [address] Phys: Verito Lema MD Acct: [id number] Dis Date: Status: [facility] ER PHONE #: [phone] Exam Date: 04/01/2019 1642 FAX #: [phone] Reason: chest pain EXAMS: CPT CODE: [id number] XR CHEST 1 V 77949 Examination: One view chest x-ray Location code: H60 Comparison: None D iscussion: Clinical history is remarkable for chest pain. Heart is normal in size. Lungs are clear of consolidating infiltrat es. No masses, nodules or effusions are noted. Impression: 1. Normal one view chest x-ray. at 1659 Reported and sig shravan by: Johnathon Sauer MD CC: Technologist: Evangelista Adler; CRISELDA BUSTAMANTE PAGE 1 Signed Report Portal: [facility] St: REG -- Name: FELECIA ASTORGA : 1960 Age/S: 58/M [address] Unit #: [id number] Loc: [place] [address] Phys: Verito Lema MD Acct: [id number] Dis Date: Status: REG ER PHONE #: [phone] Exam Date: 04/01/2019 1649 FAX #: Reason: chest pain EXAMS: CPT CODE: [id number] XR CHEST 1 V 92466 <Continued> Trnscrd Date/Time/By: 04/01/2019 (6553) : By: Ana PaulaVR5 PAGE 2 Signed Report HGB [id number] 09:02:00* Test Item Value Reference Range Comments HEMOGLOBIN (test code=HGB) 10.0 g/dL 14.0-18.0 HEMATOCRIT (test code=HCT) 33.7 % 40.0-55.0 [id number] 08:36:00* Test Item Value Reference Range Comments GLUBED (test code=GLUBED) 199 mg/dL 65-99 BASIC METABOLIC [id number] 03:09:00* Test Item Value Reference Range Comments SODIUM (test code=NA) 140 mmol/L 135-145 POTASSIUM (test code=K) 3.9 mmol/L 3.5-5.1 CHLORIDE (test code=CL) 110 mmol/L 98-107 CARBON DIOXIDE (test code=CO2) 27 mmol/L 21-32 ANION GAP (test code=GAP) 6.9 2.0-16.0 GLUCOSE (test code=GLU) 145 mg/dL 65-99 BLOOD UREA NITROGEN (test code=BUN) 19 mg/dL 4-23 GLOMERULAR FILTRATION RATE (test code=GFR) >=60 max estimate ml/min 60-115 The estimated glomerular filtration rate is computed usingpatient race, age (>18), sex, and serum creatinine. If anyof the needed data elements are missing the Laboratory cannot compute an estimation of the glomerular filtration rate. CREATININE (test code=CREAT) 0.7 mg/dL 0.6-1.5 BUN/CREATININE RATIO (test code=BUN/CREA) 27.1 12.0-20.0 CALCIUM (test code=CA) 8.2 mg/dL 8.5-10.1 HGB [id number] 02:53:00* Test Item Value Reference Range Comments HEMOGLOBIN (test code=HGB) 9.6 g/dL 14.0-18.0 HEMATOCRIT (test code=HCT) 30.9 % 40.0-55.0 HGB [id number] 22:23:00* Test Item Value Reference Range Comments HEMOGLOBIN (test code=HGB) 10.0 g/dL 14.0-18.0 HEMATOCRIT (test code=HCT) 33.1 % 40.0-55.0 LIPID PROFILE (CORONARY RISK)2019-03-31 20:46:00* Test Item Value Reference Range Comments TRIGLYCERIDES (test code=TRIG) 267 mg/dL 0-149 CHOLESTEROL (test code=CHOL) 136 mg/dL 0-200 CHOLESTEROL/HDL RATIO (test code=CHOLHDL) 4 1-6 HDL CHOLESTEROL (test code=HDL) 36 mg/dL 40-60 LIPOPROTEIN LDL (test code=LDLC) 75 mg/dL 0-100 B-TYPE NATRIURETIC [id number] 18:39:00* Test Item Value Reference Range Comments B-TYPE NATRIURETIC PEPTIDE (test code=BNP) 23 pg/mL 0-100 - XR CHEST 2 [id number] 18:22:00Patient Name: FELECIA ASTORGA Unit No: [id number] EXAMS: CPT CODE: [id number] XR CHEST 2 V 39280 EXAM: - XR CHEST 2 V LOCATION: C3 HISTORY: coughing blood COMPARISON: None available time of interpretation. FINDINGS: 2 views of the chest. No indwelling lines or tubes. No pneumothorax. The lungs are clear without significant effusions. The mediastinal contours are unremarkable/unchanged. The mediastinal contours are unremarkable. No acute osseous findings are present. IMPRESSION: No acute cardiopulmonary abnormality. at 1822 Reported and signed by: Alexi Botello MD CC: Self Referred; Jane Dominguez DO Technologist: Vianney Carver Fluoro Time: DAP (Gy m2): Air Kerma (mGy): Trscr Dt/Tm: 03/31/2019 (1821) by:Ana PaulaHV2 Electronic Signature Date/Time: 03/31/2019 (1821)Orig Print D/T: S: 03/31/2019 (1824) Name: FELECIA ASTORGA [facility] Phys: [place] [address] : 1960 Age: 58 [place]: [place] [id number] Loc: NC.3107 1 Exam Date: 03/31/2019 Status: DIS IN PH: FAX: PAGE 1 Signed Report - XR CHEST 2 [id number] 18:22:00Patient Name: FELECIA ASTORGA Unit No: [id number] EXAMS: CPT CODE: [id number] XR CHEST 2 V 10650 EXAM: - XR CHEST 2 V LOCATION: C3 HISTORY: coughing blood COMPARISON: None available time of interpretation. FINDINGS: 2 views of the chest. No indwelling lines or tubes. No pneumothorax. The lungs are clear without significant effusions. The mediastinal contours are unremarkable/unchanged. The mediastinal contours are unremarkable. No acute osseous findings are present. IMPRESSION: No acute cardiopulmonary abnormality. at 182 Reported and signed by: Alexi Botello MD CC: Self Referred; Jane Dominguez DO Technologist: Vianney Levy Time: DAP (Gy m2): Air Kerma (mGy): Trscr Dt/Tm: 03/31/2019 (1821) by:Ana PaulaHVKathleen Electronic Signature Date/Time: 03/31/2019 (1821)Orig Print D/T: S: 03/31/2019 (1824) Name: FELECIA ASTORGA [facility] [place]: [place] [address] : 1960 Age: 58 Sex: [place] [id number] Loc: NC.ERS Exam Date: 03/31/2019 Status: REG ER PH: FAX: PAGE 1 Signed Report PROTHROMBIN [id number] 18:21:00* Test Item Value Reference Range Comments PROTHROMBIN TIME PATIENT (test code=PTP) 12.4 SECONDS 9.4-12.5 INTERNATIONAL NORMAL RATIO (test code=INR) 1.1 RATIO 0.8-1.1 THE INR IS USEFUL ONLY FOR MONITORING ANTICOAGULANT THERAPY.IT MAY BE UNRELIABLE IN THE INITIAL PHASE OF ANTICOAGULATIONAND IN UNSTABLE PATIENTS. 2.0-3.0 is the recommended INR for the following:Prevention of venous thrombolism in high-risk patients;treatment of venous thrombosis and pulmonary embolism aftera course of heparin; prevention of systemic embolism in avariety of condition, including atrial fibrillation andprosthetic tissue heart valves.2.5-3.5 is the recommended INR for the following:Prosthetic mechanical heart values and/or recurrent systemicembolization. BASIC METABOLIC [id number] 18:19:00* Test Item Value Reference Range Comments SODIUM (test code=NA) 140 mmol/L 135-145 POTASSIUM (test code=K) 3.7 mmol/L 3.5-5.1 CHLORIDE (test code=CL) 110 mmol/L 98-107 CARBON DIOXIDE (test code=CO2) 25 mmol/L 21-32 ANION GAP (test code=GAP) 8.7 2.0-16.0 GLUCOSE (test code=GLU) 135 mg/dL 65-99 BLOOD UREA NITROGEN (test code=BUN) 19 mg/dL 4-23 GLOMERULAR FILTRATION RATE (test code=GFR) >=60 max estimate ml/min 60-115 The estimated glomerular filtration rate is computed usingpatient race, age (>18), sex, and serum creatinine. If anyof the needed data elements are missing the Laboratory cannot compute an estimation of the glomerular filtration rate. CREATININE (test code=CREAT) 0.8 mg/dL 0.6-1.5 BUN/CREATININE RATIO (test code=BUN/CREA) 23.8 12.0-20.0 CALCIUM (test code=CA) 8.3 mg/dL 8.5-10.1 LIVER FUNCTION [id number] 18:19:00* Test Item Value Reference Range Comments TOTAL PROTEIN (test code=PROT) 6.9 g/dL 6.4-8.2 ALBUMIN (test code=ALB) 3.0 g/dL 3.4-5.0 GLOBULIN (test code=GLOB) 3.9 g/dL 2.3-3.5 BILIRUBIN TOTAL (test code=BILT) 0.1 mg/dL 0.2-1.2 BILIRUBIN DIRECT (test code=BILD) < 0.1 mg/dL 0.0-0.3 BILIRUBIN INDIRECT (test code=BILIND) 0.0 mg/dL 0.0-0.8 SGOT/AST (test code=AST) 17 U/L 15-37 SGPT/ALT (test code=ALT) 17 U/L 6-50 ALKALINE PHOSPHATASE (test code=ALKP) 78 U/L 45-117 [id number] 18:19:00* Test Item Value Reference Range Comments LIPASE (test code=LIP) 144 U/L 73-393 [id number] 18:19:00* Test Item Value Reference Range Comments TROPONIN-I (test code=TROPI) < 0.02 ng/mL 0.00-0.07 CBC W/O [id number] 18:03:00* Test Item Value Reference Range Comments WHITE BLOOD CELL (test code=WBC) 6.8 10 3/uL 4.5-11.0 RED BLOOD CELL (test code=RBC) 3.76 10 6/uL 4.30-5.50 HEMOGLOBIN (test code=HGB) 10.2 g/dL 14.0-18.0 HEMATOCRIT (test code=HCT) 33.1 % 40.0-55.0 MEAN CELL VOLUME (test code=MCV) 88 fL 81-102 MEAN CELL HGB (test code=MCH) 27.1 pg 26.0-34.0 MEAN CELL HGB CONCENTRATION (test code=MCHC) 30.8 % 31.0-37.0 RED CELL DISTRIBUTION WIDTH (test code=RDW) 13.4 % 11.5-14.5 PLATELET COUNT (test code=PLT) 288 10 3/uL 150-400 [id number] 12:15:00* Test Item Value Reference Range Comments GLUBED (test code=GLUBED) 169 MG/DL 70-105 [id number] 06:53:00* Test Item Value Reference Range Comments GLUBED (test code=GLUBED) 104 MG/DL 70-105 [id number] 03:10:00* Test Item Value Reference Range Comments TROPONIN-I (test code=TROPI) 0.01 ng/mL 0.00-0.03 [id number] 00:14:00* Test Item Value Reference Range Comments TROPONIN-I (test code=TROPI) 0.01 ng/mL 0.00-0.03 [id number] 21:42:00* Test Item Value Reference Range Comments GLUBED (test code=GLUBED) 114 MG/DL 70-105 [id number] 20:56:00* Test Item Value Reference Range Comments TROPONIN-I (test code=TROPI) 0.01 ng/mL 0.00-0.03 BASIC METABOLIC [id number] 19:46:00* Test Item Value Reference Range Comments SODIUM (test code=NA) 139 mmol/L 136-145 POTASSIUM (test code=K) 3.6 MMOL/L 3.6-5.2 CHLORIDE (test code=CL) 106 MMOL/L 98-110 CARBON DIOXIDE (test code=CO2) 25 mEq/L 24-32 GLUCOSE (test code=GLU) 100 mg/dL 70-110 BLOOD UREA NITROGEN (test code=BUN) 19 mg/dL 7-18 GLOMERULAR FILTRATION RATE (test code=GFR) >=60 max estimate >60 The estimated glomerular filtration rate is computed usingpatient race, age (>18), sex, and serum creatinine. If anyof the needed data elements are missing the Laboratory cannot compute an estimation of the glomerular filtration rate. CREATININE (test code=CREAT) 0.68 mg/dL 0.60-1.30 CALCIUM (test code=CA) 8.8 mg/dL 8.6-10.3 BASIC METABOLIC [id number] 19:43:00* Test Item Value Reference Range Comments SODIUM (test code=NA) 139 mmol/L 136-145 POTASSIUM (test code=K) 3.6 MMOL/L 3.6-5.2 CHLORIDE (test code=CL) 106 MMOL/L 98-110 CARBON DIOXIDE (test code=CO2) 25 mEq/L 24-32 GLUCOSE (test code=GLU) 100 mg/dL 70-110 BLOOD UREA NITROGEN (test code=BUN) mg/dL 7-18 GLOMERULAR FILTRATION RATE (test code=GFR) >60 CREATININE (test code=CREAT) mg/dL 0.60-1.30 CALCIUM (test code=CA) 8.8 mg/dL 8.6-10.3 BASIC METABOLIC [id number] 19:42:00* Test Item Value Reference Range Comments SODIUM (test code=NA) mmol/L 136-145 POTASSIUM (test code=K) 3.6 MMOL/L 3.6-5.2 CHLORIDE (test code=CL) MMOL/L 98-110 CARBON DIOXIDE (test code=CO2) mEq/L 24-32 GLUCOSE (test code=GLU) mg/dL 70-110 BLOOD UREA NITROGEN (test code=BUN) mg/dL 7-18 GLOMERULAR FILTRATION RATE (test code=GFR) >60 CREATININE (test code=CREAT) mg/dL 0.60-1.30 CALCIUM (test code=CA) mg/dL 8.6-10.3 PROTHROMBIN [id number] 19:42:00* Test Item Value Reference Range Comments PROTHROMBIN TIME PATIENT (test code=PTP) 11.5 SECONDS 9.5-12.9 INTERNATIONAL NORMAL RATIO (test code=INR) 1.0 0.85-1.15 The INR is to be used only for monitoring ORAL ANTICOAGULANTTHERAPY. Indication INR Value1. Prophylaxis/treatment of: Venous Thrombosis, Pulmonary Embolism 2.0 - 3.02. Prevention of systemic embolism from: Tissue heart valves 2.0 - 3.0 Acute myocardial infarction (to present systemic embolism)* 2.0 - 3.0 Valvular heart disease 2.0 - 3.0 Atrial fibrillation 2.0 - 3.03. Mechanical prosthetic valves (high risk) 2.5 - 3.5 * If oral anticoagulant therapy is elected to preventrecurrent myocardial infarction, an INR of 2.5-3.5 isrecommended, consistent with Food and Drug Administrationrecommendations. [id number] 19:42:00* Test Item Value Reference Range Comments D-DIMER (test code=DDIMER) 499 ng/mLFEU 0-500 THE DDIMER METHOD IS USED IN THE EXCLUSION OF DEEP VEINTHROMBOSIS AND/OR PULMONARY EMBOLISM AND THE CLINICAL CUT-OFF VALUE FOR EXCLUSION (500 NG/ML FEU) OF THESE CONDITIONSIS VALIDATED BY THE LABOR ARBITRATOR HEARING OFFICE OF THE METHOD. A NEGATIVE DDIMER RESULT WHEN COMBINED WITH A CLINICALASSESSMENT OF LOW PRETEST PROBABILITY HAS BEEN SHOWN TO HAVEA HIGH NEGATIVE PREDICTIVE VALUE OF DVT OR PE. D-DIMER VALUES >500 ng/mL ARE NOT DIAGNOSTIC FOR DVT,PEOR DIC WITHOUT OTHER CONFIRMATORY TESTS AND APPROPRIATECLINICAL EVALUATIONS. CBC W/AUTO [id number] 19:36:00* Test Item Value Reference Range Comments WHITE BLOOD CELL (test code=WBC) 9.23 K/mm3 5.0-12.0 RED BLOOD CELL (test code=RBC) 4.02 M/mm3 4.70-6.10 HEMOGLOBIN (test code=HGB) 10.8 G/DL 14.0-18.0 HEMATOCRIT (test code=HCT) 34.8 % 37.0-49.0 MEAN CELL VOLUME (test code=MCV) 87 fL 80-94 MEAN CELL HGB (test code=MCH) 26.9 PGM 27-31 MEAN CELL HGB CONCENTRATION (test code=MCHC) 31.0 G/DL 33-37 RED CELL DISTRIBUTION WIDTH (test code=RDW) 13.5 % 11.6-16.2 PLATELET COUNT (test code=PLT) 312 K/mm3 130-400 MEAN PLATELET VOLUME (test code=MPV) 9.3 fl 7.4-10.4 NEUTROPHIL % (test code=NT%) 68.6 % 43-65 IMMATURE GRANULOCYTE % (test code=IG%) 0.4 % 0.0-2.0 LYMPHOCYTE % (test code=LY%) 16.5 % 20.5-45.5 MONOCYTE % (test code=MO%) 10.3 % 5.5-11.7 EOSINOPHIL % (test code=EO%) 3.8 % 0.9-2.9 BASOPHIL % (test code=BA%) 0.4 % 0.2-1.0 NUCLEATED RBC % (test code=NRBC%) 0.0 % 0-1.0 NEUTROPHIL # (test code=NT#) 6.33 K/mm3 2.2-4.8 LYMPHOCYTE # (test code=LY#) 1.52 K/mm3 1.3-2.9 MONOCYTE # (test code=MO#) 0.95 K/mm3 0.3-0.8 EOSINOPHIL # (test code=EO#) 0.35 K/MM3 0.0-0.2 BASOPHIL # (test code=BA#) 0.04 K/mm3 0.0-0.1 TROPONIN I [id number] 19:35:00* Test Item Value Reference Range Comments TROPONIN I RAPID (test code=TROPIRAP) 0.00 ng/mL 0.00-0.08 ISTAT TROPONIN I CRITERIA0.00-0.08 ng/mL - Negative>0.08 ng/mL - Positive The use of serial sampling and testing protocol is arecommended practice.An elevated troponin level alone is often not sufficient fordiagnosis of myocardial infarction. Troponin results obtained by different assays may vary.Evaluation of the extent of myocardial damage based onincrease of troponin would be valid only if similarmethodology is used. BNP [id number] 19:35:00* Test Item Value Reference Range Comments BNP RAPID (test code=BNPRAP) < 15 pg/mL 0.0-100.0 - XR CHEST 1 [id number] 18:46:00Patient Name: FELECIA ASTORGA Unit No: [id number] EXAMS: CPT: [id number] XR CHEST 1 V 91595 STUDY: - XR CHEST 1 V INDICATION: Chest Pain TECHNIQUE: Single AP view of the chest. COMPARISON: Chest radiograph from 03/30/2019. FINDINGS: No mediastinal shift or enlargement. Normal cardiac silhouette. Normal symmetric lung inflation. No evidence of pulmonary edema, airspace pathology, pleural effusion or pneumothorax. Mild right AC joint degenerative changes. IMPRESSION: No evidence of acute pulmonary process. at 1846 Reported and signed by: JACQUELINE PHILLIPS MD CC: Emory Barnes DO Technologist: Hunter Levy Time: DAP (Gy m2): Air Kerma (mGy): Trscr Dt/Tm: 03/30/2019 (1845) by:Andre Orig Print D/T: S: 03/30/2019 (1848) BATCH NO: N/A Name: FELECIA ASTORGA [facility] [place] Phys: Emory Singh DO [address] [facility] : 1960 Age: 58 Sex: M [place] Loc: T.KYLAH Exam Date: 03/30/2019 Status: PRE ER PH: FAX: PAGE 1 Signed Report TROPONIN-I 2019-03-30 15:04:00* Test Item Value Reference Range Comments TROPONIN-I (test code=TROPI) <0.020 ng/mL 0.000-0.034 [id number] 12:19:00* Test Item Value Reference Range Comments TROPONIN-I (test code=TROPI) <0.020 ng/mL 0.000-0.034 [id number] 08:41:00* Test Item Value Reference Range Comments TROPONIN-I (test code=TROPI) <0.020 ng/mL 0.000-0.034 BASIC METABOLIC [id number] 08:31:00* Test Item Value Reference Range Comments SODIUM (test code=NA) 136 mmol/L 135-145 POTASSIUM (test code=K) 4.3 mmol/L 3.6-5.0 CHLORIDE (test code=CL) 103 mmol/L 101-111 CARBON DIOXIDE (test code=CO2) 25 mmol/L 21-31 GLUCOSE (test code=GLU) 112 mg/dl 70-100 BLOOD UREA NITROGEN (test code=BUN) 18 mg/dl 6-20 GLOMERULAR FILTRATION RATE (test code=GFR) >=60 max estimate >60 The estimated glomerular filtration rate is computed usingpatient race, age (>18), sex, and serum creatinine. If anyof the needed data elements are missing the Laboratory cannot compute an estimation of the glomerular filtration rate. CREATININE (test code=CREAT) 0.70 mg/dL 0.64-1.27 CALCIUM (test code=CA) 8.7 mg/dL 8.5-10.5 CBC W/AUTO [id number] 08:18:00* Test Item Value Reference Range Comments WHITE BLOOD CELL (test code=WBC) 9.5 x10 3/uL 3.2-11.5 RED BLOOD CELL (test code=RBC) 3.94 x10(6)/m 4.20-5.70 HEMOGLOBIN (test code=HGB) 10.7 g/dL 12.9-17.3 HEMATOCRIT (test code=HCT) 34.4 % 38.7-51.0 MEAN CELL VOLUME (test code=MCV) 87 fL 80-100 MEAN CELL HGB (test code=MCH) 27.2 pg 26.7-33.3 MEAN CELL HGB CONCENTRATION (test code=MCHC) 31.1 g/dL 30.0-34.0 RED CELL DISTRIBUTION WIDTH (test code=RDW) 13.3 % 11.3-14.5 PLATELET COUNT (test code=PLT) 302 x10 3/uL 130-408 MEAN PLATELET VOLUME (test code=MPV) 9.2 fL 8.6-12.6 NEUTROPHIL % (test code=NT%) 75.0 % 40.0-70.0 IMMATURE GRANULOCYTE % (test code=IG%) 0.4 % 0.0-2.0 LYMPHOCYTE % (test code=LY%) 14.6 % 20-40 MONOCYTE % (test code=MO%) 7.0 % 1-10 EOSINOPHIL % (test code=EO%) 2.5 % 0.0-5.0 BASOPHIL % (test code=BA%) 0.5 % 0.0-1.0 NUCLEATED RBC % (test code=NRBC%) 0.2 % 0.0-0.9 NEUTROPHIL # (test code=NT#) 7.1 x10 3/uL 1.6-7.2 LYMPHOCYTE # (test code=LY#) 1.39 x10 3/uL 1.1-2.7 MONOCYTE # (test code=MO#) 0.7 x10 3/uL 0.3-0.8 EOSINOPHIL # (test code=EO#) 0.2 x10 3/uL 0.0-0.5 BASOPHIL # (test code=BA#) 0.1 x10 3/uL 0.0-0.1 - XR CHEST 1 [id number] 08:03:00Patient Name: FELECIA ASTORGA Unit No: [id number] EXAMS: CPT: [id number] XR CHEST 1 V 09510 CHEST RADIOGRAPH, ONE VIEW: FRONTAL HISTORY: Shortness of breath. COMPARISON: January 26, 2019. FINDINGS: The lungs are clear and the cardiovascular silhouette is normal. No infiltrates or pulmonary edema is present. No pleural effusions are seen. IMPRESSION: No acute lung findings. at 0803 Reported and signed by: Kavon Hernandez MD CC: Technologist: Rojelio Levy Time: DAP (Gy m2): Air Kerma (mGy): Trscr Dt/Tm: 03/30/2019 (08) by:Ana PaulaVL4 Orig Print D/T: S: 03/30/2019 (805) BATCH NO: N/A Name: FELECIA ASTORGA [facility] [place] Phys: ANA. - Henri Peace MD [address] [place] : 1960 Age: 58 Sex: [place] [address] Loc: N.ERS Exam Date: 03/30/2019 Status: REG ER PH: FAX: PAGE 1 Signed Report Comprehensive Metabolic [id number] 02:42:46* Test Item Value Reference Range Comments Sodium Level (test code=Sodium Level) 140.0 mmol/L 135.0-145.0 Potassium Level (test code=Potassium Level) 4.4 mmol/L 3.5-5.1 Chloride Level (test code=Chloride Level) 104 mmol/L 98-105 CO2 (test code=CO2) 24 mmol/L 22-29 Anion Gap (test code=Anion Gap) 12 mmol/L 7-16 BUN (test code=BUN) 19.40 mg/dL 6.00-20.00 Creatinine Level (test code=Creatinine Level) 0.80 mg/dL 0.70-1.20 BUN/Creat Ratio (test code=BUN/Creat Ratio) 24 Glucose Level (test code=Glucose Level) 119 mg/dL 70-115 Calcium Level (test code=Calcium Level) 9.4 mg/dL 8.3-10.5 Alk Phos (test code=Alk Phos) 74 U/L 40-129 Bilirubin Total (test code=Bilirubin Total) <0.1 mg/dL 0.1-0.9 Albumin Level (test code=Albumin Level) 3.9 g/dL 3.5-5.2 Protein Total (test code=Protein Total) 6.8 g/dL 6.4-8.3 ALT (test code=ALT) 11 U/L 1-41 AST (test code=AST) see comment U/L 1-40 ast=21Specimen hemolyzed. Globulin (test code=Globulin) 2.9 g/dL 2.9-3.1 A/G Ratio (test code=A/G Ratio) 1.3 ratio eGFR AA (test code=eGFR AA) >60 mL/min/1.73 m2 eGFR (estimated Glomerular Filtration Rate) is an estimated value, calculated from the patient's serum creatinine using the MDRD equation. It is NOT the patient's actual GFR. The eGFR provides a more clinically useful measure of kidney disease than serum creatinine alone.This calculation takes sex and race into account, if the information is provided. If the race is not provided, and the patient is -Faroese, multiply by 1.212. If sex is not provided, and the patient is female, multiply by 0.742. Results for patients <18 years of age have not been validated by the MDRD study and should be interpreted with caution. eGFR Result Interpretation:eGFR > or=60 is in the Normal RangeeGFR < 60 may mean kidney diseaseeGFR < 15 may mean kidney failure Ranges recommended by the National Kidney Foundation, http://nkdep.nih.gov Comprehensive Metabolic [id number] 02:42:46* Test Item Value Reference Range Comments Sodium Level (test code=Sodium Level) 140.0 mmol/L 135.0-145.0 Potassium Level (test code=Potassium Level) 4.4 mmol/L 3.5-5.1 Chloride Level (test code=Chloride Level) 104 mmol/L 98-105 CO2 (test code=CO2) 24 mmol/L 22-29 Anion Gap (test code=Anion Gap) 12 mmol/L 7-16 BUN (test code=BUN) 19.40 mg/dL 6.00-20.00 Creatinine Level (test code=Creatinine Level) 0.80 mg/dL 0.70-1.20 BUN/Creat Ratio (test code=BUN/Creat Ratio) 24 Glucose Level (test code=Glucose Level) 119 mg/dL 70-115 Calcium Level (test code=Calcium Level) 9.4 mg/dL 8.3-10.5 Alk Phos (test code=Alk Phos) 74 U/L 40-129 Bilirubin Total (test code=Bilirubin Total) <0.1 mg/dL 0.1-0.9 Albumin Level (test code=Albumin Level) 3.9 g/dL 3.5-5.2 Protein Total (test code=Protein Total) 6.8 g/dL 6.4-8.3 ALT (test code=ALT) 11 U/L 1-41 AST (test code=AST) see comment U/L 1-40 ast=21Specimen hemolyzed. Globulin (test code=Globulin) 2.9 g/dL 2.9-3.1 A/G Ratio (test code=A/G Ratio) 1.3 ratio eGFR AA (test code=eGFR AA) >60 mL/min/1.73 m2 eGFR (estimated Glomerular Filtration Rate) is an estimated value, calculated from the patient's serum creatinine using the MDRD equation. It is NOT the patient's actual GFR. The eGFR provides a more clinically useful measure of kidney disease than serum creatinine alone.This calculation takes sex and race into account, if the information is provided. If the race is not provided, and the patient is -Faroese, multiply by 1.212. If sex is not provided, and the patient is female, multiply by 0.742. Results for patients <18 years of age have not been validated by the MDRD study and should be interpreted with caution. eGFR Result Interpretation:eGFR > or=60 is in the Normal RangeeGFR < 60 may mean kidney diseaseeGFR < 15 may mean kidney failure Ranges recommended by the National Kidney Foundation, http://nkdep.nih.gov Lipase [id number] 02:42:46* Test Item Value Reference Range Comments Lipase Level (test code=Lipase Level) 52 U/L 13-60 Pro B Natriuretic [id number] 02:42:46* Test Item Value Reference Range Comments NT-proBNP (test code=NT-proBNP) 20 pg/mL 0-124 Troponin [id number] 02:42:46* Test Item Value Reference Range Comments Troponin-T (test code=Troponin-T) 12.040 ng/L 0.000-22.000 The CV of the assay at 99th percentile for both male and female patient population is < 10%. A rise and fall in GISELL with at least one value above the 99th percentile with clinical evidence of myocardial ischemia would support a diagnosis of AMI. A delta of at least 20% is recommended to assess acute changes in results above the 99th percentile in serial measurements. Stable GISELL levels (<20%) delta above the 99th percentile URL would support a diagnosis of chronic myocardial injury. Comprehensive Metabolic [id number] 02:42:46* Test Item Value Reference Range Comments Sodium Level (test code=Sodium Level) 140.0 mmol/L 135.0-145.0 Potassium Level (test code=Potassium Level) 4.4 mmol/L 3.5-5.1 Chloride Level (test code=Chloride Level) 104 mmol/L 98-105 CO2 (test code=CO2) 24 mmol/L 22-29 Anion Gap (test code=Anion Gap) 12 mmol/L 7-16 BUN (test code=BUN) 19.40 mg/dL 6.00-20.00 Creatinine Level (test code=Creatinine Level) 0.80 mg/dL 0.70-1.20 BUN/Creat Ratio (test code=BUN/Creat Ratio) 24 Glucose Level (test code=Glucose Level) 119 mg/dL 70-115 Calcium Level (test code=Calcium Level) 9.4 mg/dL 8.3-10.5 Alk Phos (test code=Alk Phos) 74 U/L 40-129 Bilirubin Total (test code=Bilirubin Total) <0.1 mg/dL 0.1-0.9 Albumin Level (test code=Albumin Level) 3.9 g/dL 3.5-5.2 Protein Total (test code=Protein Total) 6.8 g/dL 6.4-8.3 ALT (test code=ALT) 11 U/L 1-41 AST (test code=AST) see comment U/L 1-40 ast=21Specimen hemolyzed. Globulin (test code=Globulin) 2.9 g/dL 2.9-3.1 A/G Ratio (test code=A/G Ratio) 1.3 ratio eGFR AA (test code=eGFR AA) >60 mL/min/1.73 m2 eGFR (estimated Glomerular Filtration Rate) is an estimated value, calculated from the patient's serum creatinine using the MDRD equation. It is NOT the patient's actual GFR. The eGFR provides a more clinically useful measure of kidney disease than serum creatinine alone.This calculation takes sex and race into account, if the information is provided. If the race is not provided, and the patient is -Faroese, multiply by 1.212. If sex is not provided, and the patient is female, multiply by 0.742. Results for patients <18 years of age have not been validated by the MDRD study and should be interpreted with caution. eGFR Result Interpretation:eGFR > or=60 is in the Normal RangeeGFR < 60 may mean kidney diseaseeGFR < 15 may mean kidney failure Ranges recommended by the National Kidney Foundation, http://nkdep.nih.gov eGFR Non-AA (test code=eGFR Non-AA) >60.00 mL/min/1.73 m2 eGFR (estimated Glomerular Filtration Rate) is an estimated value, calculated from the patient's serum creatinine using the MDRD equation. It is NOT the patient's actual GFR. The eGFR provides a more clinically useful measure of kidney disease than serum creatinine alone.This calculation takes sex and race into account, if the information is provided. If the race is not provided, and the patient is -Faroese, multiply by 1.212. If sex is not provided, and the patient is female, multiply by 0.742. Results for patients <18 years of age have not been validated by the MDRD study and should be interpreted with caution. eGFR Result Interpretation:eGFR > or=60 is in the Normal RangeeGFR < 60 may mean kidney diseaseeGFR < 15 may mean kidney failure Ranges recommended by the National Kidney Foundation, http://nkdep.nih.gov Prothrombin Time and [id number] 02:21:46* Test Item Value Reference Range Comments Prothrombin Time (test code=Prothrombin Time) 11.8 seconds 9.8-13.4 INR (test code=INR) 1.0 ratio 0.6-1.2 Complete Blood Count with [id number] 02:17:44* Test Item Value Reference Range Comments WBC (test code=WBC) 9.6 x10 4.4-10.5 RBC (test code=RBC) 3.89 x10 4.10-5.70 Hgb (test code=Hgb) 11.0 g/dL 13.4-17.4 Hct (test code=Hct) 34.4 % 38.7-52.0 MCV (test code=MCV) 88.40 fL 80.00-100.00 MCHC (test code=MCHC) 32.00 g/dL 32.00-37.50 RDW CV (test code=RDW CV) 13.4 % 11.5-14.5 MCH (test code=MCH) 28.3 pg 27.0-32.5 Platelets (test code=Platelets) 302.0 x10 140.0-440.0 MPV (test code=MPV) 9.7 fL Slide Review (test code=Slide Review) Auto Auto Result created by [email or web address] nRBC (test code=nRBC) 0 NRBC Abs (test code=NRBC Abs) 0.00 x10 IPF (test code=IPF) 0 % Automated [id number] 02:17:44* Test Item Value Reference Range Comments Neutro Auto (test code=Neutro Auto) 71.6 % 36.0-70.0 Lymph Auto (test code=Lymph Auto) 15.1 % 12.0-44.0 [place] Auto (test code=[place] Auto) 9.0 % 0.0-11.0 Eos, Auto (test code=Eos, Auto) 3.6 % 0.0-7.0 Basophil Auto (test code=Basophil Auto) 0.4 % 0.0-2.0 Neutro Absolute (test code=Neutro Absolute) 6.9 x10 1.6-7.4 Lymph Absolute (test code=Lymph Absolute) 1.46 x10 .50-4.60 [place] Absolute (test code=[place] Absolute) .87 x10 .00-1.20 Eos Absolute (test code=Eos Absolute) 0.35 x10 0.00-0.74 Baso Absolute (test code=Baso Absolute) 0.04 x10 0.00-0.21 IG [id number] 02:17:44* Test Item Value Reference Range Comments IG (test code=IG) 0.3 % 0.0-5.0 IG Abs (test code=IG Abs) 0 x10 XR Chest 1 View [id number] 01:26:35Patient: FELECIA ASTORGA Date/Time03/30/2019 01:04 CSTReason for ExamChest painReportExam: AP chestLocation: H 12HISTORY: Chest painComparison: 03/29/2018.Findings:The lungs are clear. The pulmonary vasculature is normal. The heart size is normal. The mediastinal silhouette is unremarkable. The bony thorax is intact.Impression:No acute disease. Final Dictated by: MD Carreon Francesco MDictated DT/TM: 03/30/2019 1:26 amSigned by: MD Carreon Francesco MSigned (Electronic Signature): 03/30/2019 1:26 amTROPONIN-I [id number] 19:25:00* Test Item Value Reference Range Comments TROPONIN-I RAPID (test code=TROPIRAP) 0.01 ng/mL 0.00-0.08 Performed by certified vallez filter operator at [facility] Negative: <=0.08 Positive: >=0.09An elevated troponin value alone is not sufficient todiagnose a myocardial infarction. Rather, the patient sclinical presentation (history, physical exam) and ECGshould be used in conjunction with troponin in thediagnostic evaluation of suspected myocardial infarction. Aserial sampling protocol is recommended to facilitate the identification of temporal changes in troponin levels characteristic of [place]. DRUGS OF ABUSE [id number] 17:31:00* Test Item Value Reference Range Comments UR COCAINE (test code=COCAU) NEGATIVE NEGATIVE DETECTION CUT OFF: 150 ng/mL UR CANNABINOIDS (test code=CANU) NEGATIVE NEGATIVE DETECTION CUT OFF: 50 ng/mL UR AMPHETAMINE (test code=AMPHU) NEGATIVE NEGATIVE DETECTION CUT OFF: 500 ng/mL UR BARBITURATE QUAL (test code=BARBQLU) NEGATIVE NEGATIVE DETECTION CUT OFF: 200 ng/mL UR BENZODIAZEPINE (test code=BENZU) NEGATIVE NEGATIVE DETECTION CUT OFF: 150 ng/mL UR OPIATES QUAL (test code=OPIAQLU) POSITIVE NEGATIVE RESULTS CALLED TO MAYANK MARTINEZ & CONFIRMED? YES.BY CAMELIATTT 03/21/19 0348. DETECTION CUT OFF: 100 ng/mL UR PHENCYCLIDINE (PCP) (test code=PHENCU) NEGATIVE NEGATIVE DETECTION CUT OFF: 25 ng/mL Comments to Surveyor Helper: Clean CatchSpecimen Comment: Clean CatchUA RFLX MICR CULT IF [id number] 17:14:00* Test Item Value Reference Range Comments UA COLOR (test code=COLU) YELLOW YELLOW UA APPEARANCE (test code=APPU) CLEAR CLEAR UA GLUCOSE DIPSTICK (test code=DGLUU) NEGATIVE NEG UA BILIRUBIN DIPSTICK (test code=BILU) NEGATIVE NEG UA KETONE DIPSTICK (test code=KETU) TRACE NEG UA SPECIFIC GRAVITY (test code=SGU) 1.029 1.001-1.035 UA BLOOD DIPSTICK (test code=GERALDINE) NEG NEG UA PH DIPSTICK (test code=SOFIA) 6.0 5-9 UA PROTEIN DIPSTICK (test code=PROU) NEGATIVE NEG UA UROBILINIOGEN DIPSTICK (test code=URO) 4.0 mg/dL NEG UA NITRITE DIPSTICK (test code=BRADEN) NEG NEG UA LEUKOCYTE ESTERASE DIPSTICK (test code=LEUU) NEG NEG UA WBC (test code=WBCU) 0-2 #/hpf NONE SEEN UA RBC (test code=RBCU) NONE SEEN #/hpf NONE SEEN UA EPITHELIAL CELLS (test code=EPIU) FEW #/HPF RARE-FEW UA BACTERIA (test code=BACU) NEGATIVE /HPF RARE-FEW UA MUCUS (test code=MUCU) 1+ NONE SEEN Comments to Surveyor Helper: Clean CatchSpecimen Comment: Clean CatchIndication for culture: Suprapubic PainPROTHROMBIN [id number] 17:12:00* Test Item Value Reference Range Comments PROTHROMBIN TIME PATIENT (test code=PTP) 12.5 secs 10.41-12.4 Comments to Surveyor Helper: Clean CatchSpecimen Comment: Clean CatchIS PATIENT ON ANTICOAGULANTS ? NINTERNATIONAL NORMAL [id number] 17:12:00* Test Item Value Reference Range Comments INTERNATIONAL NORMAL RATIO (test code=INR) 1.13 The INR is to be used only for monitoring oral anticoagulanttherapy. INDICATION INR VALUE 1. Prophylaxis including high risk surgery 2.0 - 2.52. Deep venous thrombosis. Pulmonary embolism. Atrial fibrillation or bioprosthetic heart valves 2.0 - 3.03. Mechanical heart valves or recurrent systemic embolism. 3.0 - 3.5 Comments to Surveyor Helper: Clean CatchSpecimen Comment: Clean CatchIS PATIENT ON ANTICOAGULANTS ? NTHROMBOPLASTIN TIME [id number] 17:12:00* Test Item Value Reference Range Comments THROMBOPLASTIN TIME PARTIAL (test code=PTT) 31.8 secs 22-38 Comments to Surveyor Helper: Clean CatchSpecimen Comment: Clean CatchIS PATIENT ON ANTICOAGULANTS ? ND-DIMER [id number] 17:12:00* Test Item Value Reference Range Comments D-DIMER QUANT (test code=DDIMER) <200 ng/mLDDU <255 Reference Range in : <570 ng/mlA positive test does not provide a definitive diagnosis ofDVT and indicates the need for follow up clinical studies. The predictive value of a negative test is 98% for rulingout DVT. Comments to Surveyor Helper: Clean CatchSpecimen Comment: Clean CatchIS PATIENT ON ANTICOAGULANTS ? NB-TYPE NATRIURETIC [id number] 16:49:00* Test Item Value Reference Range Comments B-TYPE NATRIURETIC PEPTIDE (test code=BNP) 17.14 pg/mL 0-100 CHEMISTRY 7 [id number] 16:30:00* Test Item Value Reference Range Comments SODIUM (test code=NA) 138 mEq/L 135-145 POTASSIUM (test code=K) 4.0 mEq/L 3.5-5.0 CHLORIDE (test code=CL) 103 mEq/L 100-115 CARBON DIOXIDE (test code=CO2) 23 mEq/L 22-31 ANION GAP (test code=GAP) 15.90 10-20 GLUCOSE (test code=GLU) 102 mg/dL 65-110 BLOOD UREA NITROGEN (test code=BUN) 18 mg/dL 7-18 GLOMERULAR FILTRATION RATE (test code=GFR) 76 ml/min >60 CREATININE (test code=CREAT) 1.0 mg/dL 0.7-1.3 CALCIUM (test code=CA) 9.1 mg/dL 8.4-10.2 Comments to Surveyor Helper: Clean CatchSpecimen Comment: Clean CatchLIVER PROFILE 2019-03-21 16:30:00* Test Item Value Reference Range Comments TOTAL PROTEIN (test code=PROT) 8.0 gm/dL 6.3-8.2 ALBUMIN (test code=ALB) 3.7 gm/dL 3.4-4.8 BILIRUBIN TOTAL (test code=BILT) 0.4 mg/dL 0.2-1.0 BILIRUBIN DIRECT (test code=BILD) 0.1 mg/dL <0.2 SGOT/AST (test code=AST) 31 units/L 15-37 SGPT/ALT (test code=ALT) 35 units/L 12-78 ALKALINE PHOSPHATASE TOTAL (test code=ALKP) 93 units/L 46-116 Comments to Surveyor Helper: Clean CatchSpecimen Comment: Clean CatchCREATINE KINASE (CK)2019-03-21 16:30:00* Test Item Value Reference Range Comments CREATINE KINASE (CK) (test code=CK) 496 Units/L 26-192 Comments to Surveyor Helper: Clean CatchSpecimen Comment: Clean CatchLIPASE 2019-03-21 16:30:00* Test Item Value Reference Range Comments LIPASE (test code=LIP) 141 units/L 73-393 Comments to Surveyor Helper: Clean CatchSpecimen Comment: Clean CatchTROPONIN-I 2019-03-21 16:30:00* Test Item Value Reference Range Comments TROPONIN-I (test code=TROPI) <0.017 ng/mL <0.056 Comments to Surveyor Helper: Clean CatchSpecimen Comment: Clean Catch- XR CHEST 1 V 2019-03-21 16:23:00 Patient Name: FELECIA ASTORGA Unit No: [id number] EXAMS: CPT CODE: [id number] XR CHEST 1 V [id number] EXAMINATION: Chest one view 03/21/2019 at 1601 hours. CLINICAL HISTORY: Chest pain. COMPARISON: Chest x-ray 03/07/2019. FINDINGS: 2 frontal radiograph is provided for interpretation. The cardiomediastinal silhouette is within normal limits in appearance. Pulmonary vasculature is within normal limits. The lungs are clear. No acute osseous abnormalities are evident. IMPRESSION: No radiographic abnormalities in the chest. at 3133 Reported and signed by: Yamile Ramsay MD CC: Maria L Cavazos MD Technologist: Renee Herron, RT Trnscrbd D/ ([id number]) Mindy.WSC Orig Print D/T: S: 03/21/2019 (1627) [facility] NAME: FELECIA ASTORGA Radiology Department PHYS: Maria L Carreon MD [address] : 1960 AGE: 58 SEX: M [place], [place] [address] LOC: [facility] PHONE #: [phone] EXAM DATE: 03/21/2019 STATUS: REG ER FAX #: [phone] RAD NO: Page 1 Signed Report TROPONIN I [id number] 16:22:00* Test Item Value Reference Range Comments TROPONIN I RAPID (test code=TROPIRAP) 0.00 ng/mL 0.00-0.08 CBC W/AUTO [id number] 16:10:00* Test Item Value Reference Range Comments WHITE BLOOD CELL (test code=WBC) 10.8 K/mm3 4.5-11.2 RED BLOOD CELL (test code=RBC) 4.30 M/mm3 3.42-5.20 HEMOGLOBIN (test code=HGB) 11.8 g/dL 10.2-14.9 HEMATOCRIT (test code=HCT) 38.0 % 31.3-44.8 MEAN CELL VOLUME (test code=MCV) 88 fL 81-95 MEAN CELL HGB (test code=MCH) 27.4 pg 27-34 MEAN CELL HGB CONCETRATION (test code=MCHC) 31.1 gm/dL 32-35 RED CELL DISTRIBUTION WIDTH (test code=RDW) 13.7 % 11.8-14.8 PLATELET COUNT (test code=PLT) 309 K/mm3 135-380 MEAN PLATELET VOLUME (test code=MPV) 9.4 fl 9.1-12.7 NEUTROPHIL % (test code=NT%) 75.9 % 51.5-79.7 LYMPHOCYTE % (test code=LY%) 12.6 % 14-40 MONOCYTE % (test code=MO%) 9.0 % 4.0-10.2 EOSINOPHIL % (test code=EO%) 1.4 % 0-4.1 BASOPHIL % (test code=BA%) 0.6 % 0.1-0.7 NEUTROPHIL # (test code=NT#) 8.2 K/mm3 LYMPHOCYTE # (test code=LY#) 1.4 K/mm3 MONOCYTE # (test code=MO#) 1.0 K/mm3 EOSINOPHIL # (test code=EO#) 0.15 K/mm3 BASOPHIL # (test code=BA#) 0.1 K/mm3 RBC MORPHOLOGY REQUIRED (test code=RBCM) NORMAL NORMAL PLATELET MORPHOLOGY REQUIRED (test code=PLTMR) NORMAL NORMAL Comments to Surveyor Helper: Clean CatchSpecimen Comment: Clean CatchLIVER PROFILE 2019-03-18 22:03:00* Test Item Value Reference Range Comments BILI TOTAL (test code=11A) 0.2 mg/dL 0.2-1.0 BILI DIRCT (test code=12A) <0.1 mg/dL 0.0-0.2 PROTEIN (test code=07D) 6.8 g/dL 6.4-8.2 ALBUMIN (test code=08D) 2.9 g/dL 3.5-4.8 GLOBULIN (test code=GLB) 3.9 g/dL 1.5-3.8 ALB/GLOB (test code=AGRR) 0.7 1.0-2.6 ALK PHOS (test code=35A) 83 IU/L 42-121 AST (test code=30A) 26 IU/L <=42 ALT (test code=31A) 36 IU/L <=78 AMYLASE AND [id number] 22:02:00* Test Item Value Reference Range Comments AMYLASE (test code=10A) 50 U/L 28-100 LIPASE (test code=60A) 108 IU/L 73-393 [id number] 21:56:00* Test Item Value Reference Range Comments COLOR (test code=COLU) YELLOW YELLOW CLARITY (test code=CLA) CLEAR CLEAR GLUCOSE UR (test code=UA GLUCOSE) NEGATIVE NEGATIVE BILI UR (test code=BILE) NEGATIVE NEGATIVE KETONES UR (test code=CHELSEA) NEGATIVE NEGATIVE SP GRAVITY (test code=SPGR) 1.023 1.005-1.030 PH UR (test code=PH) 6.5 4.5-8.0 PROTEIN UR (test code=PU) NEGATIVE NEGATIVE UROBIL UR (test code=UROQ) 1.0 EU/dL 0.2-1.0 NITRITE UR (test code=NITRITE) NEGATIVE NEGATIVE BLOOD UR (test code=UA BLOOD) NEGATIVE NEGATIVE LEUK ES UR (test code=LEUK) NEGATIVE NEGATIVE BRAIN NATRIURETIC [id number] 21:53:00* Test Item Value Reference Range Comments proBNP (test code=PBNP) 54 pg/mL 0-125 CARDIAC [id number] 21:51:00* Test Item Value Reference Range Comments TROPONIN I (test code=A84) <0.015 ng/mL 0.000-0.045 BASIC METABOLIC [id number] 21:50:00* Test Item Value Reference Range Comments GLUCOSE (test code=06D) 103 mg/dL 75-100 SODIUM (test code=01A) 141 mmol/L 136-145 POTASSIUM (test code=01B) 4.1 mmol/L 3.6-5.1 CHLORIDE (test code=04A) 110 mmol/L 98-107 CO2 (test code=02A) 25 mmol/L 22-32 ANION GAP (test code=ANG) 10.1 mmol/L BUN (test code=05D) 19 mg/dL 7-18 CREATININE (test code=03E) 0.9 mg/dL 0.7-1.3 BUN/CREA (test code=BCR) 22 12-20 CALCIUM (test code=09D) 8.2 mg/dL 8.3-9.5 PRO TIME AND [id number] 21:50:00* Test Item Value Reference Range Comments PT (test code=TT) 11.2 s 9.8-13.6 INR (test code=INR) 1.0 INRH (test code=INRH) SUGGESTED THERAPEUTIC RANGE FOR INR: 2.5 - 3.5 For Patients with Prosthetic Valves or Patients with recurrent Thromboembolic Events 2.0 - 3.0 For Most Other Applications PTT (test code=PTT) 34.2 s 20.2-38.0 PTTH (test code=PTTH) To monitor the effectiveness of heparin, we offer the Anti-Xa (Heparin Assay). It can be used for either unfractionated or LMW Heparin. Order Code is ANTI-XA [id number] 21:47:00* Test Item Value Reference Range Comments MAGNESIUM (test code=48A) 1.8 mg/dL 1.8-2.4 CBC (INCLUDES AUTOMATED DIFFERENTIAL)2019-03-18 21:37:00* Test Item Value Reference Range Comments WBC (test code=WBC) 6.8 10\S\3/uL 4.5-11.0 RBC (test code=RBC) 3.57 10\S\6/uL 4.20-5.60 HGB (test code=HBG) 10.0 g/dL 14.0-18.0 HCT (test code=HCT) 31.4 % 35.0-46.0 MCV (test code=MCV) 88.0 fL 80.0-94.0 MCH (test code=MCH) 28.0 pg 27.0-31.0 MCHC (test code=MCHC) 31.8 g/dL 32.0-36.0 RDW (test code=RDW) 13.5 % 11.5-14.5 PLT (test code=PLT) 258 10\S\3/uL 130-400 MPV (test code=MPV) 9.0 fL 9.4-12.4 NEUTROP # (test code=NE#) 4.3 10\S\3/uL 2.0-8.0 LYMPH # (test code=LY#) 1.2 10\S\3/uL 1.2-4.0 MONOCYTE # (test code=MO#) 0.7 10\S\3/uL 0.0-1.1 EOSINOPH # (test code=EO#) 0.6 10\S\3/uL 0.0-0.7 BASOPHIL # (test code=BA#) 0.1 10\S\3/uL 0.0-0.3 IG # (test code=IG#) 0.01 10\S\3/uL 0.00-0.06 NRBC # (test code=NRBC#) 0.00 10\S\3/uL 0.00-0.01 NEUTROPH % (test code=NE%) 63.5 % 35.0-73.0 LYMPH % (test code=LY%) 17.1 % 20.0-55.0 MONO % (test code=MO%) 9.7 % 2.5-10.0 EOSINOPH % (test code=EO%) 8.7 % 0.0-5.0 BASOPHIL % (test code=BA%) 0.9 % 0.0-2.0 IG % (test code=IG%) 0.1 % 0.0-0.8 NRBC% (test code=NRBC%) 0.0 % 0.0-0.2 MANDIFF (test code=MDIFF) NO NO RBC MORPH (test code=RBCMOR) NORMAL XR CHEST 1 VIEW [id number] 21:31:38LOCATION: B91EABLEER: 58-year-old male who presents with edema.COMMENT: A frontal chest radiograph was obtained at the bedside at 8:53 p.m., andcompared to a study of 02/09/19.The lungs are clear and well-aerated. The cardiac silhouette, thong, andmediastinum are within normal limits. The skeleton is intact, and thesurrounding soft tissues are unremarkable. IMPRESSION:Unremarkable portable examination of the chest. ACETAMINOPHEN *[facility]2019-03-12 23:07:00* Test Item Value Reference Range Comments ACETAMINPH (test code=94M) <2.0 ug/mL 10.0-30.0 CPK 2019-03-12 23:06:00* Test Item Value Reference Range Comments CPK (test code=32A) 352 IU/L 39-308 ALCOHOL BLOOD (ETOH) 2019-03-12 23:06:00* Test Item Value Reference Range Comments ETOH (test code=HALC) ETHANOL The result is to be used only for medical purposes ALCOHOL (test code=56A) <10 mg/dL <=10 COMPREHENSIVE METABOLIC TERRELL 2019-03-12 22:59:00* Test Item Value Reference Range Comments GLUCOSE (test code=06D) 104 mg/dL 75-100 SODIUM (test code=01A) 139 mmol/L 136-145 POTASSIUM (test code=01B) 3.6 mmol/L 3.6-5.1 CHLORIDE (test code=04A) 109 mmol/L 98-107 CO2 (test code=02A) 26 mmol/L 22-32 ANION GAP (test code=ANG) 7.6 mmol/L BUN (test code=05D) 19 mg/dL 7-18 CREATININE (test code=03E) 0.7 mg/dL 0.7-1.3 BUN/CREA (test code=BCR) 28 12-20 CALCIUM (test code=09D) 8.4 mg/dL 8.3-9.5 BILI TOTAL (test code=11A) 0.3 mg/dL 0.2-1.0 PROTEIN (test code=07D) 7.4 g/dL 6.4-8.2 ALBUMIN (test code=08D) 3.4 g/dL 3.5-4.8 GLOBULIN (test code=GLB) 4.1 g/dL 1.5-3.8 ALB/GLOB (test code=AGRR) 0.8 1.0-2.6 ALK PHOS (test code=35A) 104 IU/L 42-121 AST (test code=30A) 43 IU/L <=42 ALT (test code=31A) 82 IU/L <=78 SALICYLATES WW2019-03-12 22:58:00* Test Item Value Reference Range Comments SALICYLATE (test code=94B) <1.7 mg/dL 2.8-20.0 PRO TIME AND PTT 2019-03-12 22:55:00* Test Item Value Reference Range Comments PT (test code=TT) 13.3 s 9.8-13.6 INR (test code=INR) 1.1 INRH (test code=INRH) SUGGESTED THERAPEUTIC RANGE FOR INR: 2.5 - 3.5 For Patients with Prosthetic Valves or Patients with recurrent Thromboembolic Events 2.0 - 3.0 For Most Other Applications PTT (test code=PTT) 36.1 s 20.2-38.0 PTTH (test code=PTTH) To monitor the effectiveness of heparin, we offer the Anti-Xa (Heparin Assay). It can be used for either unfractionated or LMW Heparin. Order Code is ANTI-XA DRUGS OF ABUSE 2019-03-12 22:53:00* Test Item Value Reference Range Comments DRUG SCRN (test code=HDOA) URINE DRUG SCREEN This is an unconfirmed screening result and should not be used for non-medical purposes CANNABINOD (test code=88C) Negative NEGATIVE AMPHETAMINE (test code=84A) Negative NEGATIVE BENZODIAZP (test code=86A) Negative NEGATIVE BARBITURAT (test code=85A) Negative NEGATIVE OPIATES (test code=92B) Negative NEGATIVE COCAINE (test code=87A) Negative NEGATIVE PHENCYCLID (test code=66A) Negative NEGATIVE METHADONE (test code=64A) Negative NEGATIVE DOAH (test code=DOAH.) URINE DRUG SCREEN Cut-off values are as follows: Cannabinoids 50 ng/mL Cocaine 300 ng/mL Amphetamines 1000 ng/mL Phencyclidine 25 ng/mL Benzodiazepines 200 ng.mL Methadone 300 ng/mL Barbiturates 200 ng/mL Opiates 2000 ng/mL CBC (INCLUDES AUTOMATED DIFFERENTIAL)*[id number] 22:46:00* Test Item Value Reference Range Comments WBC (test code=WBC) 8.8 10\S\3/uL 4.5-11.0 RBC (test code=RBC) 3.60 10\S\6/uL 4.20-5.60 HGB (test code=HBG) 10.3 g/dL 14.0-18.0 HCT (test code=HCT) 32.2 % 35.0-46.0 MCV (test code=MCV) 89.4 fL 80.0-94.0 MCH (test code=MCH) 28.6 pg 27.0-31.0 MCHC (test code=MCHC) 32.0 g/dL 32.0-36.0 RDW (test code=RDW) 13.6 % 11.5-14.5 PLT (test code=PLT) 303 10\S\3/uL 130-400 MPV (test code=MPV) 8.9 fL 9.4-12.4 NEUTROP # (test code=NE#) 6.3 10\S\3/uL 2.0-8.0 LYMPH # (test code=LY#) 1.2 10\S\3/uL 1.2-4.0 MONOCYTE # (test code=MO#) 0.9 10\S\3/uL 0.0-1.1 EOSINOPH # (test code=EO#) 0.4 10\S\3/uL 0.0-0.7 BASOPHIL # (test code=BA#) 0.1 10\S\3/uL 0.0-0.3 IG # (test code=IG#) 0.02 10\S\3/uL 0.00-0.06 NRBC # (test code=NRBC#) 0.00 10\S\3/uL 0.00-0.01 NEUTROPH % (test code=NE%) 71.4 % 35.0-73.0 LYMPH % (test code=LY%) 13.3 % 20.0-55.0 MONO % (test code=MO%) 9.7 % 2.5-10.0 EOSINOPH % (test code=EO%) 4.6 % 0.0-5.0 BASOPHIL % (test code=BA%) 0.8 % 0.0-2.0 IG % (test code=IG%) 0.2 % 0.0-0.8 NRBC% (test code=NRBC%) 0.0 % 0.0-0.2 MANDIFF (test code=WMDIFF) NO NO RBC MORPH (test code=WRBCMOR) NORMAL URINALYSIS *WW*2019-03-12 22:43:00* Test Item Value Reference Range Comments COLOR (test code=COLU) YELLOW YELLOW CLARITY (test code=CLA) CLEAR CLEAR GLUCOSE UR (test code=UA GLUCOSE) NEGATIVE NEGATIVE BILI UR (test code=BILE) NEGATIVE NEGATIVE KETONES UR (test code=CHELSEA) NEGATIVE NEGATIVE SP GRAVITY (test code=SPGR) 1.025 1.005-1.030 PH UR (test code=PH) 6.0 4.5-8.0 PROTEIN UR (test code=PU) NEGATIVE NEGATIVE UROBIL UR (test code=UROQ) 0.2 EU/dL 0.2-1.0 NITRITE UR (test code=NITRITE) NEGATIVE NEGATIVE BLOOD UR (test code=UA BLOOD) NEGATIVE NEGATIVE LEUK ES UR (test code=LEUK) NEGATIVE NEGATIVE AUAM (test code=WAUAM) NO NO CBC W/AUTO [id number] 08:22:00* Test Item Value Reference Range Comments WHITE BLOOD CELL (test code=WBC) 5.92 x10 3/uL 4.5-11.0 RED BLOOD CELL (test code=RBC) 3.60 x10 6/uL 4.00-5.60 HEMOGLOBIN (test code=HGB) 10.1 g/dL 12.5-16.9 HEMATOCRIT (test code=HCT) 32.1 % 37.5-50.7 MEAN CELL VOLUME (test code=MCV) 89.2 fL 81.0-99.0 MEAN CELL HGB (test code=MCH) 28.1 pg 27.0-33.0 MEAN CELL HGB CONCETRATION (test code=MCHC) 31.5 g/dL 33.0-37.0 RED CELL DISTRIBUTION WIDTH CV (test code=RDW) 13.5 % 11.5-14.5 RED CELL DISTRIBUTION WIDTH SD (test code=RDW-SD) 44.5 fL 37.0-54.0 PLATELET COUNT (test code=PLT) 286 x10 3/uL 150-400 MEAN PLATELET VOLUME (test code=MPV) 9.5 fL 7.0-9.0 NEUTROPHIL % (test code=NT%) 52.1 % 56.0-77.0 IMMATURE GRANULOCYTE % (test code=IG%) 0.3 % 0.0-2.0 LYMPHOCYTE % (test code=LY%) 25.0 % 14.0-32.0 MONOCYTE % (test code=MO%) 9.1 % 4.8-9.0 EOSINOPHIL % (test code=EO%) 12.5 % 0.3-3.7 BASOPHIL % (test code=BA%) 1.0 % 0.0-2.0 NUCLEATED RBC % (test code=NRBC%) 0.0 % 0-0 NEUTROPHIL # (test code=NT#) 3.08 x10 3/uL 2.0-7.6 IMMATURE GRANULOCYTE # (test code=IG#) 0.02 x10 3/uL 0.00-0.03 LYMPHOCYTE # (test code=LY#) 1.48 x10 3/uL 1.0-3.8 MONOCYTE # (test code=MO#) 0.54 x10 3/uL 0.1-0.8 EOSINOPHIL # (test code=EO#) 0.74 x10 3/uL 0.0-0.2 BASOPHIL # (test code=BA#) 0.06 x10 3/uL 0.0-0.2 NUCLEATED RBC # (test code=NRBC#) 0.00 x10 3/uL 0.0-0.1 MANUAL DIFF REQUIRED (test code=MDIFF) NO BASIC METABOLIC [id number] 08:21:00* Test Item Value Reference Range Comments SODIUM (test code=NA) 138 mEq/L 134-147 POTASSIUM (test code=K) 3.9 mEq/L 3.4-5.0 CHLORIDE (test code=CL) 105 mEq/L 100-108 CARBON DIOXIDE (test code=CO2) 26 mEq/L 21-33 ANION GAP (test code=GAP) 11 0-20 GLUCOSE (test code=GLU) 134 mg/dL 70-110 BLOOD UREA NITROGEN (test code=BUN) 14 mg/dL 7-18 GLOMERULAR FILTRATION RATE (test code=GFR) 115.0 80-90 Units of measure=ml/min/1.73 m2 CREATININE (test code=CREAT) 0.7 mg/dL 0.6-1.3 CALCIUM (test code=CA) 8.6 mg/dL 8.0-10.5 CBC W/AUTO [id number] 08:47:00* Test Item Value Reference Range Comments WHITE BLOOD CELL (test code=WBC) 6.33 x10 3/uL 4.5-11.0 RED BLOOD CELL (test code=RBC) 3.52 x10 6/uL 4.00-5.60 HEMOGLOBIN (test code=HGB) 9.9 g/dL 12.5-16.9 HEMATOCRIT (test code=HCT) 31.3 % 37.5-50.7 MEAN CELL VOLUME (test code=MCV) 88.9 fL 81.0-99.0 MEAN CELL HGB (test code=MCH) 28.1 pg 27.0-33.0 MEAN CELL HGB CONCETRATION (test code=MCHC) 31.6 g/dL 33.0-37.0 RED CELL DISTRIBUTION WIDTH CV (test code=RDW) 13.6 % 11.5-14.5 RED CELL DISTRIBUTION WIDTH SD (test code=RDW-SD) 44.3 fL 37.0-54.0 PLATELET COUNT (test code=PLT) 273 x10 3/uL 150-400 MEAN PLATELET VOLUME (test code=MPV) 9.2 fL 7.0-9.0 NEUTROPHIL % (test code=NT%) 53.3 % 56.0-77.0 IMMATURE GRANULOCYTE % (test code=IG%) 0.2 % 0.0-2.0 LYMPHOCYTE % (test code=LY%) 22.6 % 14.0-32.0 MONOCYTE % (test code=MO%) 11.7 % 4.8-9.0 EOSINOPHIL % (test code=EO%) 10.9 % 0.3-3.7 BASOPHIL % (test code=BA%) 1.3 % 0.0-2.0 NUCLEATED RBC % (test code=NRBC%) 0.0 % 0-0 NEUTROPHIL # (test code=NT#) 3.38 x10 3/uL 2.0-7.6 IMMATURE GRANULOCYTE # (test code=IG#) 0.01 x10 3/uL 0.00-0.03 LYMPHOCYTE # (test code=LY#) 1.43 x10 3/uL 1.0-3.8 MONOCYTE # (test code=MO#) 0.74 x10 3/uL 0.1-0.8 EOSINOPHIL # (test code=EO#) 0.69 x10 3/uL 0.0-0.2 BASOPHIL # (test code=BA#) 0.08 x10 3/uL 0.0-0.2 NUCLEATED RBC # (test code=NRBC#) 0.00 x10 3/uL 0.0-0.1 MANUAL DIFF REQUIRED (test code=MDIFF) NO [id number] 08:45:00* Test Item Value Reference Range Comments GLUBED (test code=GLUBED) 95 MG/DL 70-110 Performed by certified vallez filter operator at [facility] BASIC METABOLIC [id number] 08:23:00* Test Item Value Reference Range Comments SODIUM (test code=NA) 138 mEq/L 134-147 POTASSIUM (test code=K) 4.1 mEq/L 3.4-5.0 CHLORIDE (test code=CL) 105 mEq/L 100-108 CARBON DIOXIDE (test code=CO2) 26 mEq/L 21-33 ANION GAP (test code=GAP) 11 0-20 GLUCOSE (test code=GLU) 86 mg/dL 70-110 BLOOD UREA NITROGEN (test code=BUN) 16 mg/dL 7-18 GLOMERULAR FILTRATION RATE (test code=GFR) 137.4 80-90 Units of measure=ml/min/1.73 m2 CREATININE (test code=CREAT) 0.6 mg/dL 0.6-1.3 CALCIUM (test code=CA) 8.3 mg/dL 8.0-10.5 [id number] 17:17:00* Test Item Value Reference Range Comments GLUBED (test code=GLUBED) 146 MG/DL 70-110 Performed by certified vallez filter operator at [facility] [id number] 17:17:00* Test Item Value Reference Range Comments GLUBED (test code=GLUBED) 169 MG/DL 70-110 Performed by certified vallez filter operator at [facility] BASIC METABOLIC [id number] 08:55:00* Test Item Value Reference Range Comments SODIUM (test code=NA) 138 mEq/L 134-147 POTASSIUM (test code=K) 3.7 mEq/L 3.4-5.0 CHLORIDE (test code=CL) 106 mEq/L 100-108 CARBON DIOXIDE (test code=CO2) 27 mEq/L 21-33 ANION GAP (test code=GAP) 9 0-20 GLUCOSE (test code=GLU) 94 mg/dL 70-110 BLOOD UREA NITROGEN (test code=BUN) 21 mg/dL 7-18 GLOMERULAR FILTRATION RATE (test code=GFR) 115.0 80-90 Units of measure=ml/min/1.73 m2 CREATININE (test code=CREAT) 0.7 mg/dL 0.6-1.3 CALCIUM (test code=CA) 8.6 mg/dL 8.0-10.5 CBC W/AUTO [id number] 07:24:00* Test Item Value Reference Range Comments WHITE BLOOD CELL (test code=WBC) 7.07 x10 3/uL 4.5-11.0 RED BLOOD CELL (test code=RBC) 3.47 x10 6/uL 4.00-5.60 HEMOGLOBIN (test code=HGB) 9.8 g/dL 12.5-16.9 HEMATOCRIT (test code=HCT) 30.6 % 37.5-50.7 MEAN CELL VOLUME (test code=MCV) 88.2 fL 81.0-99.0 MEAN CELL HGB (test code=MCH) 28.2 pg 27.0-33.0 MEAN CELL HGB CONCETRATION (test code=MCHC) 32.0 g/dL 33.0-37.0 RED CELL DISTRIBUTION WIDTH CV (test code=RDW) 13.6 % 11.5-14.5 RED CELL DISTRIBUTION WIDTH SD (test code=RDW-SD) 44.2 fL 37.0-54.0 PLATELET COUNT (test code=PLT) 278 x10 3/uL 150-400 MEAN PLATELET VOLUME (test code=MPV) 9.4 fL 7.0-9.0 NEUTROPHIL % (test code=NT%) 58.0 % 56.0-77.0 IMMATURE GRANULOCYTE % (test code=IG%) 0.6 % 0.0-2.0 LYMPHOCYTE % (test code=LY%) 20.7 % 14.0-32.0 MONOCYTE % (test code=MO%) 9.8 % 4.8-9.0 EOSINOPHIL % (test code=EO%) 9.8 % 0.3-3.7 BASOPHIL % (test code=BA%) 1.1 % 0.0-2.0 NUCLEATED RBC % (test code=NRBC%) 0.0 % 0-0 NEUTROPHIL # (test code=NT#) 4.11 x10 3/uL 2.0-7.6 IMMATURE GRANULOCYTE # (test code=IG#) 0.04 x10 3/uL 0.00-0.03 LYMPHOCYTE # (test code=LY#) 1.46 x10 3/uL 1.0-3.8 MONOCYTE # (test code=MO#) 0.69 x10 3/uL 0.1-0.8 EOSINOPHIL # (test code=EO#) 0.69 x10 3/uL 0.0-0.2 BASOPHIL # (test code=BA#) 0.08 x10 3/uL 0.0-0.2 NUCLEATED RBC # (test code=NRBC#) 0.00 x10 3/uL 0.0-0.1 MANUAL DIFF REQUIRED (test code=MDIFF) NO CHEMISTRY 8 [id number] 15:11:00* Test Item Value Reference Range Comments ISTAT-SODIUM (test code=NAP) MMOL/L 134-147 ISTAT-POTASSIUM (test code=KP) MMOL/L 3.4-5.0 ISTAT-CHLORIDE (test code=CLP) MMOL/L 100-108 ISTAT CARBON DIOXIDE (test code=ISTAT-CO2) mmol/L 21-33 ISTAT CALCIUM IONIZED (test code=ISTAT-YUE) MG/DL 1.12-1.32 ISTAT-GLUCOSE (test code=GLUP) MG/DL 70-110 ISTAT-BUN (test code=BUNP) MG/DL 7-18 BEDSIDE CREATININE (test code=CREATBED) MG/DL 0.6-1.3 GLOMERULAR FILTRATION RATE POC (test code=GFRBED) 146 ML/MIN CHEMISTRY 8 [id number] 15:11:00* Test Item Value Reference Range Comments ISTAT-SODIUM (test code=NAP) 140 MMOL/L 134-147 ISTAT-POTASSIUM (test code=KP) 3.7 MMOL/L 3.4-5.0 ISTAT-CHLORIDE (test code=CLP) 103 MMOL/L 100-108 Performed by certified vallez filter operator at [facility] ISTAT CARBON DIOXIDE (test code=ISTAT-CO2) 26.0 mmol/L 21-33 ISTAT CALCIUM IONIZED (test code=ISTAT-YUE) 1.24 MG/DL 1.12-1.32 ISTAT-GLUCOSE (test code=GLUP) 106 MG/DL 70-110 ISTAT-BUN (test code=BUNP) 23 MG/DL 7-18 BEDSIDE CREATININE (test code=CREATBED) 0.6 MG/DL 0.6-1.3 GLOMERULAR FILTRATION RATE POC (test code=GFRBED) 146 ML/MIN TROPONIN-I [id number] 15:11:00* Test Item Value Reference Range Comments TROPONIN-I RAPID (test code=TROPIRAP) 0.00 ng/mL 0.00-0.08 Performed by certified vallez filter operator at [facility] Negative: <=0.08 Positive: >=0.09An elevated troponin value alone is not sufficient todiagnose a myocardial infarction. Rather, the patient sclinical presentation (history, physical exam) and ECGshould be used in conjunction with troponin in thediagnostic evaluation of suspected myocardial infarction. Aserial sampling protocol is recommended to facilitate the identification of temporal changes in troponin levels characteristic of [place]. [id number] 10:39:00* Test Item Value Reference Range Comments TROPONIN-I (test code=TROPI) < 0.015 ng/mL 0.000-0.045 Negative: <=0.045 Positive: >=0.046 Correlation with serial results, other cardiac markers andclinical findings is necessary to determine the clinicalsignificance of this result. Results using different methodologies should not be comparedto one another as quantitative results may vary by method. COMMENTS: 3 troponins total (including troponin done in ED)[id number] 06:11:00* Test Item Value Reference Range Comments TROPONIN-I (test code=TROPI) < 0.015 ng/mL 0.000-0.045 Negative: <=0.045 Positive: >=0.046 Correlation with serial results, other cardiac markers andclinical findings is necessary to determine the clinicalsignificance of this result. Results using different methodologies should not be comparedto one another as quantitative results may vary by method. COMMENTS: 3 troponins total (including troponin done in ED)- CTA CHEST FOR PE 2019-03-07 04:18:00 Name: RUSH ASTORGA [facility] : 1960 Age/S: 58 / M [address] [place], [place] [address] Unit #: [id number] Loc: [place] [address] Phys: Andres Erwin NP Acct: [id number] Dis Date: Status: REG ER PHONE #: [phone] Exam Date: 03/07/2019 0345 FAX #: [phone] Reason: Chest pain, elevated d-dimer EXAMS: CPT [place]: [id number] [place] [id number] EXAM: CT, CTA CHEST: 03/07/2019, 0333 hours Clinical Indication: Chest pain. Elevated d-dimer. Comparison: CT dated 02/05/2019. Chest radiograph 03/07/2019. TECHNIQUE: CTA of the pulmonary arteries was performed with 100 cc Isovue intravenous contrast. Helical imaging performed apices to the lung bases. Multiplanar reconstructions were obtained. 3-D postprocessing reconstruction MIP imaging was performed. CT imaging was performed with exposure control parameters to reduce radiation dose. All CT scans at this location are performed using dose optimization techniques as appropriate to perform exam including the following: * Automated exposure control * Adjustment of the mA and /or kV according to patient size (this includes techniques or standardized protocols for targeted exams where dose is matched to indication/reason for exam; extremities or head) * Use of iterative reconstruction technique CT Radiation Dose DLP: 435.36 mGy-cm FINDINGS: VASCULAR STRUCTURES: No segmental pulmonary emboli noted. The main, right and left pulmonary arteries are normal. Significant calcified plaques in LAD. Mild calcified plaques in thoracic aorta. There is no dissection or aneurysm. The great vessels appear unremarkable. The superior vena cava is unremar kable. HEART: The cardiac chambers are unremarkable. Ther e is no CT evidence of right ventricular strain. There is no pericardial effusion. LUNG PARENCHYMA AND PLEURA: Mild atelectasis in the rig ht lower lobe. Small groundglass opacity in the right middle lobe probabl y atelectasis. There are no pleural effusions. There is no pneumoth orax. AIRWAYS: The central airway is unremarkable. Trachea is mid line. MEDIASTINUM: No significant mediastinal lymphadenopathy. 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 Mild fatty infiltration of the pancreas.. OSSEOUS STRUCTURES: No acute abnormality seen. IMPRESSION: 1. No segmental pulmonary embolism or thoracic aortic dissection. 2. Mild right lower lobe atelectasis. Groundglass opacity in the right middle lobe, probably atelectasis. No definitive pneumonia seen. 2. Nonobstructing right renal stone. 4. Mild fatty infiltration of the pancreas. 5. Coronary arterial calcification. SL: JSYED-H at 0418 Reported and signed by: Varun Donws M.D. CC: Andres Erwin CLOSED CIRCUIT SCREEN WATCHER; Naga Khanna MD Technologist:Kyle Negrete, RT(R)(CT) CTDI: DLP: Trnscb Date/Time: 03/07/2019 (0418) [email or web address] Orig Print D/T: S: 03/07/2019 (0428) PAGE 2 Signed Report B-TYPE NATRIURETIC [id number] 03:08:00* Test Item Value Reference Range Comments B-TYPE NATRIURETIC PEPTIDE (test code=BNP) 18.1 PG/ML 0-100 PROTHROMBIN [id number] 02:34:00* Test Item Value Reference Range Comments PROTHROMBIN TIME PATIENT (test code=PTP) 13.1 SECONDS 9.3-12.9 INTERNATIONAL NORMAL RATIO (test code=INR) 1.2 0.8-1.2 TARGET INR BY INDICATION Indication INR1. Prophylaxis of venous thrombosis 2.0 - 3.0 (orthopedic surgery), Prophylaxis of venous thrombosis (other than high-risk surgery), Treatment of Deep Vein Thrombosis/Pulmonary Embolism, Prevention of systemic embolism - Tissue heart valves, Acute Myocardial Infarction (to prevent systemic embolism), Valvular heart disease, Atrial Fibrillation, Bileaflet mechanical valve in aortic position.2. Mechanical prosthetic valves (high risk), 2.5 - 3.5 Presence of Lupus Anticoagulant or Antiphospholipid Antibodies, Prevention of systemic embolism - Acute Myocardial Infarction (to prevent recurrent infarct). [id number] 02:34:00* Test Item Value Reference Range Comments D-DIMER (test code=DDIMER) 728 ng/mlFEU <=500 THROMBOSIS AND/OR PULMONARY EMBOLISM AND THE CLINICAL CUT- OFF VALUE FOR EXCLUSION (500 ng/mL FEU) OF THESE CONDITIONSIS VALIDATED BY THE LABOR ARBITRATOR HEARING OFFICE OF THE METHOD. A NEGATIVE D-DIMER RESULT WHEN COMBINED WITH A CLINICALASSESSMENT OF LOW PRETEST PROBABILITY HAS BEEN SHOWN TO HAVEA HIGH NEGATIVE PREDICTIVE VALUE OF DVT OR PE. D-DIMER VALUES >500 ng/mL FEU ARE NOT DIAGNOSTIC FOR DVT, PEor DIC WITHOUT OTHER CONFIRMATORY TESTS AND APPROPRIATECLINICAL EUALUATIONS. [id number] 02:31:00* Test Item Value Reference Range Comments LIPASE (test code=LIP) 115 IUnit/L 73-393 CBC W/AUTO [id number] 02:23:00* Test Item Value Reference Range Comments WHITE BLOOD CELL (test code=WBC) 7.71 x10 3/uL 4.5-11.0 RED BLOOD CELL (test code=RBC) 3.37 x10 6/uL 4.00-5.60 HEMOGLOBIN (test code=HGB) 9.7 g/dL 12.5-16.9 HEMATOCRIT (test code=HCT) 30.8 % 37.5-50.7 MEAN CELL VOLUME (test code=MCV) 91.4 fL 81.0-99.0 MEAN CELL HGB (test code=MCH) 28.8 pg 27.0-33.0 MEAN CELL HGB CONCETRATION (test code=MCHC) 31.5 g/dL 33.0-37.0 RED CELL DISTRIBUTION WIDTH CV (test code=RDW) 13.9 % 11.5-14.5 RED CELL DISTRIBUTION WIDTH SD (test code=RDW-SD) 46.5 fL 37.0-54.0 PLATELET COUNT (test code=PLT) 251 x10 3/uL 150-400 MEAN PLATELET VOLUME (test code=MPV) 9.1 fL 7.0-9.0 NEUTROPHIL % (test code=NT%) 62.0 % 56.0-77.0 IMMATURE GRANULOCYTE % (test code=IG%) 0.3 % 0.0-2.0 LYMPHOCYTE % (test code=LY%) 18.5 % 14.0-32.0 MONOCYTE % (test code=MO%) 10.9 % 4.8-9.0 EOSINOPHIL % (test code=EO%) 7.7 % 0.3-3.7 BASOPHIL % (test code=BA%) 0.6 % 0.0-2.0 NUCLEATED RBC % (test code=NRBC%) 0.0 % 0-0 NEUTROPHIL # (test code=NT#) 4.78 x10 3/uL 2.0-7.6 IMMATURE GRANULOCYTE # (test code=IG#) 0.02 x10 3/uL 0.00-0.03 LYMPHOCYTE # (test code=LY#) 1.43 x10 3/uL 1.0-3.8 MONOCYTE # (test code=MO#) 0.84 x10 3/uL 0.1-0.8 EOSINOPHIL # (test code=EO#) 0.59 x10 3/uL 0.0-0.2 BASOPHIL # (test code=BA#) 0.05 x10 3/uL 0.0-0.2 NUCLEATED RBC # (test code=NRBC#) 0.00 x10 3/uL 0.0-0.1 MANUAL DIFF REQUIRED (test code=MDIFF) NO - XR CHEST 1 [id number] 01:23:00 FAX: Naga Venegas MD [phone] Portal: [address]: PRE Name: RUSH RAMIREZ [facility] : [birth year] Age/S: 58/M [address] [place] [address] Unit #: [id number] Loc: [address] [address] Phys: Naga Khanna MD Acct: [id number] Dis Date: Status: PRE ER PHONE #: [phone] Exam Date: 03/07/2019 0112 FAX #: [phone] Reason: Chest Pain EXAMS: CPT CODE: [id number] XR CHEST 1 V [id number] EXAM: CR, XR chest one view: 03/07, 0100 hours HISTORY: Chest Pain TECHNIQUE: 1 v iew of the chest. COMPARISON: 02/03/2019 FINDINGS: Trachea is midline. Heart is upper normal in size. Pulmonary vascu larity is unremarkable. Opacity in the medial right lower lobe. Ther e is no pleural effusion or pneumothorax. Osseous structures are stable. IMPRESSION: Right lower lobe opacity may represent pneum onia in appropriate clinical setting. SL: [J DAINA-H] at 01 23 Reported and signed by: Vaurn Downs M.D. CC: Naga Khanna MD Technologist: Alonzo Pitt RT(R) Trnscrd Date/Time/By: (0123) : By: Ana [email or web address] Orig Print D/T: S: 03/07/2019 (0126) PAGE 1 Signed Report XR ANKLE LEFT COMPLETE 3 [id number] 09:13:05Left ankle, 3 viewsLocation Code: [id number] HISTORY: Traumatic injuryCOMMENTS: AP, lateral, and oblique views of the left ankle demonstrate no acutefracture or malalignment. The soft tissues are unremarkable.IMPRESSION: No acute radiograph ic abnormality.XR FOOT LEFT COMPLETE 3 [id number] 09:12:53Left foot, 3 viewsLocation Code: [id number] HISTORY: Traumatic injuryCOMMENTS: AP, lateral, and oblique views of the left foot demonstrate no acutefracture or malalignment. The soft tissues are unremarkable.IMPRESSION: No acute radiographic abnormality. ALCOHOL BLOOD (ETOH)2019-03-04 03:01:00* Test Item Value Reference Range Comments ETOH (test code=HALC) ETHANOL The result is to be used only for medical purposes ALCOHOL (test code=56A) <10 mg/dL <=10 COMPREHENSIVE METABOLIC [id number] 02:58:00* Test Item Value Reference Range Comments GLUCOSE (test code=06D) 112 mg/dL 75-100 SODIUM (test code=01A) 142 mmol/L 136-145 POTASSIUM (test code=01B) 3.4 mmol/L 3.6-5.1 CHLORIDE (test code=04A) 110 mmol/L 98-107 CO2 (test code=02A) 26 mmol/L 22-32 ANION GAP (test code=ANG) 9.4 mmol/L BUN (test code=05D) 12 mg/dL 7-18 CREATININE (test code=03E) 0.7 mg/dL 0.7-1.3 BUN/CREA (test code=BCR) 18 12-20 CALCIUM (test code=09D) 8.4 mg/dL 8.3-9.5 BILI TOTAL (test code=11A) 0.3 mg/dL 0.2-1.0 PROTEIN (test code=07D) 6.7 g/dL 6.4-8.2 ALBUMIN (test code=08D) 3.0 g/dL 3.5-4.8 GLOBULIN (test code=GLB) 3.7 g/dL 1.5-3.8 ALB/GLOB (test code=AGRR) 0.8 1.0-2.6 ALK PHOS (test code=35A) 76 IU/L 42-121 AST (test code=30A) 33 IU/L <=42 ALT (test code=31A) 32 IU/L <=78 [id number] 02:58:00* Test Item Value Reference Range Comments ACETAMINPH (test code=94M) <2.0 ug/mL 10.0-30.0 DRUGS OF [id number] 02:55:00* Test Item Value Reference Range Comments DRUG SCRN (test code=HDOA) URINE DRUG SCREEN This is an unconfirmed screening result and should not be used for non-medical purposes CANNABINOD (test code=88C) Negative NEGATIVE AMPHETAMINE (test code=84A) Negative NEGATIVE BENZODIAZP (test code=86A) Negative NEGATIVE BARBITURAT (test code=85A) Negative NEGATIVE OPIATES (test code=92B) Negative NEGATIVE COCAINE (test code=87A) Negative NEGATIVE PHENCYCLID (test code=66A) Negative NEGATIVE METHADONE (test code=64A) Negative NEGATIVE DOAH (test code=DOAH.) URINE DRUG SCREEN Cut-off values are as follows: Cannabinoids 50 ng/mL Cocaine 300 ng/mL Amphetamines 1000 ng/mL Phencyclidine 25 ng/mL Benzodiazepines 200 ng.mL Methadone 300 ng/mL Barbiturates 200 ng/mL Opiates 2000 ng/mL [id number] 02:55:00* Test Item Value Reference Range Comments SALICYLATE (test code=94B) <1.7 mg/dL 2.8-20.0 [id number] 02:48:00* Test Item Value Reference Range Comments COLOR (test code=COLU) YELLOW YELLOW CLARITY (test code=CLA) CLEAR CLEAR GLUCOSE UR (test code=UA GLUCOSE) NEGATIVE NEGATIVE BILI UR (test code=BILE) NEGATIVE NEGATIVE KETONES UR (test code=CHELSEA) NEGATIVE NEGATIVE SP GRAVITY (test code=SPGR) 1.019 1.005-1.030 PH UR (test code=PH) 7.0 4.5-8.0 PROTEIN UR (test code=PU) NEGATIVE NEGATIVE UROBIL UR (test code=UROQ) 1.0 EU/dL 0.2-1.0 NITRITE UR (test code=NITRITE) NEGATIVE NEGATIVE BLOOD UR (test code=UA BLOOD) NEGATIVE NEGATIVE LEUK ES UR (test code=LEUK) NEGATIVE NEGATIVE CBC (INCLUDES AUTOMATED DIFFERENTIAL)2019-03-04 02:47:00* Test Item Value Reference Range Comments WBC (test code=WBC) 9.3 10\S\3/uL 4.5-11.0 RBC (test code=RBC) 3.19 10\S\6/uL 4.20-5.60 HGB (test code=HBG) 9.2 g/dL 14.0-18.0 HCT (test code=HCT) 28.6 % 35.0-46.0 MCV (test code=MCV) 89.7 fL 80.0-94.0 MCH (test code=MCH) 28.8 pg 27.0-31.0 MCHC (test code=MCHC) 32.2 g/dL 32.0-36.0 RDW (test code=RDW) 14.0 % 11.5-14.5 PLT (test code=PLT) 245 10\S\3/uL 130-400 MPV (test code=MPV) 9.4 fL 9.4-12.4 NEUTROP # (test code=NE#) 6.6 10\S\3/uL 2.0-8.0 LYMPH # (test code=LY#) 1.2 10\S\3/uL 1.2-4.0 MONOCYTE # (test code=MO#) 0.9 10\S\3/uL 0.0-1.1 EOSINOPH # (test code=EO#) 0.6 10\S\3/uL 0.0-0.7 BASOPHIL # (test code=BA#) 0.1 10\S\3/uL 0.0-0.3 IG # (test code=IG#) 0.04 10\S\3/uL 0.00-0.06 NRBC # (test code=NRBC#) 0.00 10\S\3/uL 0.00-0.01 NEUTROPH % (test code=NE%) 70.2 % 35.0-73.0 LYMPH % (test code=LY%) 13.0 % 20.0-55.0 MONO % (test code=MO%) 9.5 % 2.5-10.0 EOSINOPH % (test code=EO%) 6.0 % 0.0-5.0 BASOPHIL % (test code=BA%) 0.9 % 0.0-2.0 IG % (test code=IG%) 0.4 % 0.0-0.8 NRBC% (test code=NRBC%) 0.0 % 0.0-0.2 MANDIFF (test code=MDIFF) NO NO RBC MORPH (test code=RBCMOR) NORMAL COMPREHENSIVE METABOLIC [id number] 04:36:00* Test Item Value Reference Range Comments GLUCOSE (test code=06D) 101 mg/dL 75-100 SODIUM (test code=01A) 144 mmol/L 136-145 POTASSIUM (test code=01B) 3.6 mmol/L 3.6-5.1 CHLORIDE (test code=04A) 111 mmol/L 98-107 CO2 (test code=02A) 25 mmol/L 22-32 ANION GAP (test code=ANG) 11.6 mmol/L BUN (test code=05D) 17 mg/dL 7-18 CREATININE (test code=03E) 0.6 mg/dL 0.7-1.3 BUN/CREA (test code=BCR) 28 12-20 CALCIUM (test code=09D) 8.1 mg/dL 8.3-9.5 BILI TOTAL (test code=11A) 0.2 mg/dL 0.2-1.0 PROTEIN (test code=07D) 6.8 g/dL 6.4-8.2 ALBUMIN (test code=08D) 3.2 g/dL 3.5-4.8 GLOBULIN (test code=GLB) 3.6 g/dL 1.5-3.8 ALB/GLOB (test code=AGRR) 0.9 1.0-2.6 ALK PHOS (test code=35A) 70 IU/L 42-121 AST (test code=30A) 25 IU/L <=42 ALT (test code=31A) 33 IU/L <=78 [id number] 04:31:00* Test Item Value Reference Range Comments MAGNESIUM (test code=48A) 1.7 mg/dL 1.8-2.4 CARDIAC [id number] 04:31:00* Test Item Value Reference Range Comments TROPONIN I (test code=A84) <0.015 ng/mL 0.000-0.045 URINALYSIS WITH [id number] 04:29:00* Test Item Value Reference Range Comments COLOR (test code=COLU) YELLOW YELLOW CLARITY (test code=CLA) HAZY CLEAR GLUCOSE UR (test code=UA GLUCOSE) NEGATIVE NEGATIVE BILI UR (test code=BILE) NEGATIVE NEGATIVE KETONES UR (test code=CHELSEA) NEGATIVE NEGATIVE SP GRAVITY (test code=SPGR) 1.024 1.005-1.030 PH UR (test code=PH) 6.0 4.5-8.0 PROTEIN UR (test code=PU) TRACE NEGATIVE UROBIL UR (test code=UROQ) 1.0 EU/dL 0.2-1.0 NITRITE UR (test code=NITRITE) NEGATIVE NEGATIVE BLOOD UR (test code=UA BLOOD) 3+ NEGATIVE LEUK ES UR (test code=LEUK) NEGATIVE NEGATIVE WBC UR (test code=UWBC) 2 /HPF 0-3 RBC UR (test code=URBC) 60 /HPF 0-2 EPITH UR (test code=UEPC) FEW /LPF NONE BACTERIA UR (test code=UBACT) FEW /HPF NONE CAST UR (test code=CAST) /LPF NONE CRYSTAL UR (test code=CRYU) / LPF NONE MUCUS UR (test code=MUC) / HPF NONE AMORPH UR (test code=SRINI) / HPF NONE TRICH UR (test code=UTRICH) /HPF NONE YEAST UR (test code=UY) /HPF NONE SPERM UR (test code=USPERM) /HPF NONE ALCOHOL BLOOD (ETOH)2019-02-23 04:28:00* Test Item Value Reference Range Comments ETOH (test code=HALC) ETHANOL The result is to be used only for medical purposes ALCOHOL (test code=56A) <10 mg/dL <=10 [id number] 04:28:00* Test Item Value Reference Range Comments ACETAMINPH (test code=94M) <2.0 ug/mL 10.0-30.0 AMYLASE AND [id number] 04:26:00* Test Item Value Reference Range Comments AMYLASE (test code=10A) 67 U/L 28-100 LIPASE (test code=60A) 364 IU/L 73-393 AMMONIA [id number] 04:26:00* Test Item Value Reference Range Comments AMMONIA (test code=54A) 38 umol/L 11-32 DRUGS OF [id number] 04:26:00* Test Item Value Reference Range Comments DRUG SCRN (test code=HDOA) URINE DRUG SCREEN This is an unconfirmed screening result and should not be used for non-medical purposes CANNABINOD (test code=88C) Negative NEGATIVE AMPHETAMINE (test code=84A) Negative NEGATIVE BENZODIAZP (test code=86A) Negative NEGATIVE BARBITURAT (test code=85A) Negative NEGATIVE OPIATES (test code=92B) Negative NEGATIVE COCAINE (test code=87A) Negative NEGATIVE PHENCYCLID (test code=66A) Negative NEGATIVE METHADONE (test code=64A) Negative NEGATIVE DOAH (test code=DOAH.) URINE DRUG SCREEN Cut-off values are as follows: Cannabinoids 50 ng/mL Cocaine 300 ng/mL Amphetamines 1000 ng/mL Phencyclidine 25 ng/mL Benzodiazepines 200 ng.mL Methadone 300 ng/mL Barbiturates 200 ng/mL Opiates 2000 ng/mL CBC (INCLUDES AUTOMATED DIFFERENTIAL)2019-02-23 04:17:00* Test Item Value Reference Range Comments WBC (test code=WBC) 10.0 10\S\3/uL 4.5-11.0 RBC (test code=RBC) 3.70 10\S\6/uL 4.20-5.60 HGB (test code=HBG) 10.7 g/dL 14.0-18.0 HCT (test code=HCT) 33.4 % 35.0-46.0 MCV (test code=MCV) 90.3 fL 80.0-94.0 MCH (test code=MCH) 28.9 pg 27.0-31.0 MCHC (test code=MCHC) 32.0 g/dL 32.0-36.0 RDW (test code=RDW) 13.8 % 11.5-14.5 PLT (test code=PLT) 283 10\S\3/uL 130-400 MPV (test code=MPV) 9.0 fL 9.4-12.4 NEUTROP # (test code=NE#) 6.9 10\S\3/uL 2.0-8.0 LYMPH # (test code=LY#) 1.3 10\S\3/uL 1.2-4.0 MONOCYTE # (test code=MO#) 1.0 10\S\3/uL 0.0-1.1 EOSINOPH # (test code=EO#) 0.7 10\S\3/uL 0.0-0.7 BASOPHIL # (test code=BA#) 0.1 10\S\3/uL 0.0-0.3 IG # (test code=IG#) 0.04 10\S\3/uL 0.00-0.06 NRBC # (test code=NRBC#) 0.00 10\S\3/uL 0.00-0.01 NEUTROPH % (test code=NE%) 69.2 % 35.0-73.0 LYMPH % (test code=LY%) 12.8 % 20.0-55.0 MONO % (test code=MO%) 10.1 % 2.5-10.0 EOSINOPH % (test code=EO%) 7.0 % 0.0-5.0 BASOPHIL % (test code=BA%) 0.5 % 0.0-2.0 IG % (test code=IG%) 0.4 % 0.0-0.8 NRBC% (test code=NRBC%) 0.0 % 0.0-0.2 MANDIFF (test code=MDIFF) NO NO RBC MORPH (test code=RBCMOR) NORMAL AB CMV [id number] 23:27:00* Test Item Value Reference Range Comments AB CMV IGG (test code=CMVGAB) 3.10 INDEX 0.0-0.8 < OR=0.90 NEGATIVE - NO CMV IGG ANTIBODY DETECTED0.90-1.0 EQUIVOCAL> 0.90 POSITIVE - CMV IGG ANTIBODY DETECTED THE PRESENCE OF CYTOMEGALOVIRUS (CMV) IGG ANTIBODY SUGGESTSA CURRENT OR PAST INFECTION WITH CMV. SERA COLLECTED EARLYIN THE COURSE OF INFECTION MAY NOT HAVE DETECTABLE LEVELS OFIGG ANTIBODY. IF A CURRENT OR RECENT INFECTION IS SUSPECTED, PERFORMING ACMV IGM TEST ON A SINGLE SERUM OR A CMV IGG TEST ON ACUTEAND CONVALESCENT SERA SUBMITTED AT THE SAME TIME MAY YIELDCLINICALLY USEFUL INFORMATION. - XR CHEST [id number] 20:01:00 Patient Name: FELECIA ASTORGA Unit No: [id number] EXAMS: CPT CODE: [id number] XR CHEST 1V [id number] EXAM: - XR CHEST 1V LOCATION: H57 HISTORY: 58 years-old Male with Chest Pain COMPARISON: None FINDINGS: The cardiomediastinal silhouette is within normal limits. The lungs are well aerated. No large pneumothorax or pleural effusion. Osseous structures and soft tissues demonstrate no acute findings. The visualized upper abdomen is unremarkable. IMPRESSION: No acute cardiopulmonary abnormality. at 2000 Reported and signed by: Alonzo Hubbard CC: Tyrone Turk Technologist: RT Mirza(R) Transcrpt Date/Tm/Trnsp: 02/12/2019 (2000) Ana [id number] Orig Print D/T: S: 02/12/2019 (2003) [facility] NAME: FELECIA ASTORGA [address] [address] PHYS: [place] [address] : 1960 AGE: 58 SEX: M LOC: ZIRENA PHONE #: [phone] EXAM DATE: 02/12/2019 STATUS: PRE ER FAX #: [phone] RADIOLOGY NO: PAGE 1 Signed Report TROPONIN [id number] 22:04:00* Test Item Value Reference Range Comments TROPONIN I (test code=A84) <0.015 ng/mL 0.000-0.045 CARDIAC [id number] 21:03:00* Test Item Value Reference Range Comments TROPONIN I (test code=A84) <0.015 ng/mL 0.000-0.045 BRAIN NATRIURETIC [id number] 20:51:00* Test Item Value Reference Range Comments proBNP (test code=PBNP) 27 pg/mL 0-125 COMPREHENSIVE METABOLIC [id number] 20:49:00* Test Item Value Reference Range Comments GLUCOSE (test code=06D) 136 mg/dL 75-100 SODIUM (test code=01A) 141 mmol/L 136-145 POTASSIUM (test code=01B) 3.7 mmol/L 3.6-5.1 CHLORIDE (test code=04A) 112 mmol/L 98-107 CO2 (test code=02A) 25 mmol/L 22-32 ANION GAP (test code=ANG) 7.7 mmol/L BUN (test code=05D) 14 mg/dL 7-18 CREATININE (test code=03E) 0.7 mg/dL 0.7-1.3 BUN/CREA (test code=BCR) 19 12-20 CALCIUM (test code=09D) 8.6 mg/dL 8.3-9.5 BILI TOTAL (test code=11A) 0.2 mg/dL 0.2-1.0 PROTEIN (test code=07D) 7.2 g/dL 6.4-8.2 ALBUMIN (test code=08D) 3.1 g/dL 3.5-4.8 GLOBULIN (test code=GLB) 4.1 g/dL 1.5-3.8 ALB/GLOB (test code=AGRR) 0.8 1.0-2.6 ALK PHOS (test code=35A) 73 IU/L 42-121 AST (test code=30A) 15 IU/L <=42 ALT (test code=31A) 18 IU/L <=78 [id number] 20:43:00* Test Item Value Reference Range Comments MAGNESIUM (test code=48A) 1.7 mg/dL 1.8-2.4 PRO TIME AND [id number] 20:43:00* Test Item Value Reference Range Comments PT (test code=TT) 11.3 s 9.8-13.6 INR (test code=INR) 1.0 INRH (test code=INRH) SUGGESTED THERAPEUTIC RANGE FOR INR: 2.5 - 3.5 For Patients with Prosthetic Valves or Patients with recurrent Thromboembolic Events 2.0 - 3.0 For Most Other Applications PTT (test code=PTT) 34.0 s 20.2-38.0 PTTH (test code=PTTH) To monitor the effectiveness of heparin, we offer the Anti-Xa (Heparin Assay). It can be used for either unfractionated or LMW Heparin. Order Code is ANTI-XA CBC (INCLUDES AUTOMATED DIFFERENTIAL)2019-02-09 20:35:00* Test Item Value Reference Range Comments WBC (test code=WBC) 9.8 10\S\3/uL 4.5-11.0 RBC (test code=RBC) 3.65 10\S\6/uL 4.20-5.60 HGB (test code=HBG) 10.5 g/dL 14.0-18.0 HCT (test code=HCT) 32.7 % 35.0-46.0 MCV (test code=MCV) 89.6 fL 80.0-94.0 MCH (test code=MCH) 28.8 pg 27.0-31.0 MCHC (test code=MCHC) 32.1 g/dL 32.0-36.0 RDW (test code=RDW) 13.5 % 11.5-14.5 PLT (test code=PLT) 269 10\S\3/uL 130-400 MPV (test code=MPV) 9.5 fL 9.4-12.4 NEUTROP # (test code=NE#) 7.4 10\S\3/uL 2.0-8.0 LYMPH # (test code=LY#) 1.1 10\S\3/uL 1.2-4.0 MONOCYTE # (test code=MO#) 0.8 10\S\3/uL 0.0-1.1 EOSINOPH # (test code=EO#) 0.4 10\S\3/uL 0.0-0.7 BASOPHIL # (test code=BA#) 0.1 10\S\3/uL 0.0-0.3 IG # (test code=IG#) 0.05 10\S\3/uL 0.00-0.06 NRBC # (test code=NRBC#) 0.00 10\S\3/uL 0.00-0.01 NEUTROPH % (test code=NE%) 75.6 % 35.0-73.0 LYMPH % (test code=LY%) 10.9 % 20.0-55.0 MONO % (test code=MO%) 8.1 % 2.5-10.0 EOSINOPH % (test code=EO%) 4.3 % 0.0-5.0 BASOPHIL % (test code=BA%) 0.6 % 0.0-2.0 IG % (test code=IG%) 0.5 % 0.0-0.8 NRBC% (test code=NRBC%) 0.0 % 0.0-0.2 MANDIFF (test code=MDIFF) NO NO XR CHEST 1 VIEW [id number] 20:12:41CHEST X-RAY 1 VIEWDictation Location: [id number] HISTORY: chest painTechnique:A single frontal view of the chest was obtained. Comparison made to priorstudy 02/02/19 at 1950 hoursFINDINGS:Bony structures are unremarkable. The aortic, hilar and cardiac outlines arenormal. The lungs are clear of infiltrates or suspicious nodules. No pleuraleffusion or pneumothorax. IMPRESSION:Normal chest x-ray. GLUBED 2019-02-06 12:28:00* Test Item Value Reference Range Comments GLUBED (test code=GLUBED) 84 MG/DL 74-106 [id number] 06:35:00* Test Item Value Reference Range Comments GLUBED (test code=GLUBED) 109 MG/DL 74-106 [id number] 06:16:00* Test Item Value Reference Range Comments GLUBED (test code=GLUBED) 119 MG/DL 74-106 COMPREHENSIVE METABOLIC [id number] 05:52:00* Test Item Value Reference Range Comments SODIUM (test code=NA) 140 mmol/L 137-145 POTASSIUM (test code=K) 4.0 mmol/L 3.4-5.0 CHLORIDE (test code=CL) 104 mmol/L 98-107 CARBON DIOXIDE (test code=CO2) 28 mmol/L 22-30 GLUCOSE (test code=GLU) 105 mg/dL 74-106 BLOOD UREA NITROGEN (test code=BUN) 14 mg/dL 9-20 GLOMERULAR FILTRATION RATE (test code=GFR) 146 >60 The estimated glomerular filtration rate is computed usingpatient race, age (>18), sex, and serum creatinine. If anyof the needed data elements are missing the Laboratory cannot compute an estimation of the glomerular filtration rate. CREATININE (test code=CREAT) 0.6 mg/dL 0.7-1.3 TOTAL PROTEIN (test code=PROT) 6.9 g/dL 6.3-8.2 ALBUMIN (test code=ALB) 3.6 g/dL 3.5-5.0 CALCIUM (test code=CA) 8.6 mg/dL 8.4-10.2 BILIRUBIN TOTAL (test code=BILT) 0.3 mg/dL 0.2-1.3 BILIRUBIN CONJUGATED (test code=BILCON) 0 mg/dL 0-0.3 ~~~~~~~~~~~~~~~~~~~~~~~~~~~~~~~~~~~~~~~~~~~~~~~~~~~~~~~~~~~~CONJUGATED BILIRUBIN IS THE REPLACEMENT ASSAY FOR DIRECTBILIRUBIN.~~~~~~~~~~~~~~~~~~~~~~~~~~~~~~~~~~~~~~~~~~~~~~~~~~~~~~~~~~~~ BILIRUBIN UNCONJUGATED (test code=BILUNC) 0.1 mg/dL 0-1.1 SGOT/AST (test code=AST) 31 U/L 15-46 SGPT/ALT (test code=ALT) 21 U/L 13-69 ALKALINE PHOSPHATASE (test code=ALKP) 60 U/L 38-126 [id number] 05:52:00* Test Item Value Reference Range Comments MAGNESIUM (test code=MAG) 1.7 mg/dL 1.6-2.3 CBC W/AUTO [id number] 05:32:00* Test Item Value Reference Range Comments WHITE BLOOD CELL (test code=WBC) 9.1 x10 3/uL 5.0-12.0 RED BLOOD CELL (test code=RBC) 3.88 x10 6/uL 4.70-6.10 HEMOGLOBIN (test code=HGB) 11.2 g/dL 14.0-18.0 HEMATOCRIT (test code=HCT) 36.3 % 37.0-49.0 MEAN CELL VOLUME (test code=MCV) 94 fL 80-94 MEAN CELL HGB (test code=MCH) 28.9 pg 27-31 MEAN CELL HGB CONCENTRATION (test code=MCHC) 30.9 g/dL 33-37 RED CELL DISTRIBUTION WIDTH (test code=RDW) 13.7 % 11.5-15.5 PLATELET COUNT (test code=PLT) 263 x10 3/uL 130-400 MEAN PLATELET VOLUME (test code=MPV) 9.1 fL 9.4-16.4 NEUTROPHIL % (test code=NT%) 67.5 % 43-65 IMMATURE GRANULOCYTE % (test code=IG%) 0.4 % 0.0-2.0 LYMPHOCYTE % (test code=LY%) 15.5 % 20.5-45.5 MONOCYTE % (test code=MO%) 7.3 % 5.5-11.7 EOSINOPHIL % (test code=EO%) 8.4 % 0.9-2.9 BASOPHIL % (test code=BA%) 0.9 % 0.2-1.0 NUCLEATED RBC % (test code=NRBC%) 0.0 % 0-1.0 NEUTROPHIL # (test code=NT#) 6.16 x10 3/uL 2.2-4.8 IMMATURE GRANULOCYTE # (test code=IG#) 0.04 x10 3/uL 0-0.03 LYMPHOCYTE # (test code=LY#) 1.42 x10 3/uL 1.3-2.9 MONOCYTE # (test code=MO#) 0.67 x10 3/uL 0.3-0.8 EOSINOPHIL # (test code=EO#) 0.77 x10 3/uL 0.0-0.2 BASOPHIL # (test code=BA#) 0.08 x10 3/uL 0.0-0.1 [id number] 21:08:00* Test Item Value Reference Range Comments GLUBED (test code=GLUBED) 99 MG/DL 74-106 [id number] 12:45:00* Test Item Value Reference Range Comments GLUBED (test code=GLUBED) 100 MG/DL 74-106 - CT ANGIO [id number] 09:55:00 FAX: Brayden Arenas MD [phone] Portal: St: [facility] FAX: Keon Hdz MD [phone] Name: RUSH ASTORGA [facility] : 1960 Age/S: 58/M [address] Unit: [id number] Loc: C.5514 [place] [address] Phys: Keon Recinos MD Acct: [id number] Dis Date: Status: ADM IN PHONE #: [phone] Exam Date: 02/04/2019 0948 FAX #: [phone] Reason: CP EXAMS: CPT CODE: [id number] CT ANGIO CHEST [id number] LOCATION: T18 EXAM: CTA CHEST WITH CONTRAST, PE PROTOCOL INDICATION: Chest pain COMPARISON: Chest x-ray February 03, 2019 TECHNIQUE: Helically acquired axial CT images of the chest were obtained with reconstructions in the coronal and sagittal planes. 100 ml of Isovue 370 was given intravenously. Up-to-date CT equi pment and radiation dose reduction techniques were utilized. Automatic ex posure control was utilized. MIP coronal reformats provided. FINDINGS: Limited views the inferior neck soft tissues are normal. No pulmonary embolism is seen. The heart and great vessels and m ediastinum are normal in size and contour. Coronary artery calcifications throughout the LAD. No mediastinal or hilar adenopathy is seen. The trachea and main bronchi are patent. The lungs are clear without mass, consolidation or effusion. Limited views of the upper abdom en are normal. The bones and peripheral soft tissues are unremarka ble. IMPRESSION: No pulmonary embolism. Lungs are clear. Coron melecio artery calcification. at 0962 Reported and signed by: Percy Flores MD CC: Brayden Piña MD; Keon Recinos MD T echnologist: Suzanne Colon Trnscrd Dt/T m: 02/05/2019 (9367) [email or web address] Orig Print D/T: S: 02/05 (0932 PAGE 1 Signed Re port [id number] 09:23:00* Test Item Value Reference Range Comments GLUBED (test code=GLUBED) 115 MG/DL 74-106 BASIC METABOLIC [id number] 05:54:00* Test Item Value Reference Range Comments SODIUM (test code=NA) 141 mmol/L 137-145 POTASSIUM (test code=K) 4.3 mmol/L 3.4-5.0 CHLORIDE (test code=CL) 104 mmol/L 98-107 CARBON DIOXIDE (test code=CO2) 27 mmol/L 22-30 GLUCOSE (test code=GLU) 125 mg/dL 74-106 BLOOD UREA NITROGEN (test code=BUN) 20 mg/dL 9-20 GLOMERULAR FILTRATION RATE (test code=GFR) 146 >60 The estimated glomerular filtration rate is computed usingpatient race, age (>18), sex, and serum creatinine. If anyof the needed data elements are missing the Laboratory cannot compute an estimation of the glomerular filtration rate. CREATININE (test code=CREAT) 0.6 mg/dL 0.7-1.3 CALCIUM (test code=CA) 8.6 mg/dL 8.4-10.2 [id number] 05:54:00* Test Item Value Reference Range Comments MAGNESIUM (test code=MAG) 1.8 mg/dL 1.6-2.3 TSH REFLEX TO [id number] 05:54:00* Test Item Value Reference Range Comments TSH REFLEX TO FT4 (test code=TSHREFLEX) 2.770 MIU/L 0.465-4.68 A positive bias may occur for patients taking BIOTINsupplements. BASIC METABOLIC [id number] 05:24:00* Test Item Value Reference Range Comments SODIUM (test code=NA) 141 mmol/L 137-145 POTASSIUM (test code=K) 4.3 mmol/L 3.4-5.0 CHLORIDE (test code=CL) 104 mmol/L 98-107 CARBON DIOXIDE (test code=CO2) 27 mmol/L 22-30 GLUCOSE (test code=GLU) 125 mg/dL 74-106 BLOOD UREA NITROGEN (test code=BUN) 20 mg/dL 9-20 GLOMERULAR FILTRATION RATE (test code=GFR) 146 >60 The estimated glomerular filtration rate is computed usingpatient race, age (>18), sex, and serum creatinine. If anyof the needed data elements are missing the Laboratory cannot compute an estimation of the glomerular filtration rate. CREATININE (test code=CREAT) 0.6 mg/dL 0.7-1.3 CALCIUM (test code=CA) 8.6 mg/dL 8.4-10.2 [id number] 05:24:00* Test Item Value Reference Range Comments MAGNESIUM (test code=MAG) 1.8 mg/dL 1.6-2.3 TSH REFLEX TO [id number] 05:24:00* Test Item Value Reference Range Comments TSH REFLEX TO FT4 (test code=TSHREFLEX) MIU/L 0.465-4.68 BASIC METABOLIC [id number] 05:22:00* Test Item Value Reference Range Comments SODIUM (test code=NA) 141 mmol/L 137-145 POTASSIUM (test code=K) 4.3 mmol/L 3.4-5.0 CHLORIDE (test code=CL) 104 mmol/L 98-107 CARBON DIOXIDE (test code=CO2) 27 mmol/L 22-30 GLUCOSE (test code=GLU) 125 mg/dL 74-106 BLOOD UREA NITROGEN (test code=BUN) 20 mg/dL 9-20 GLOMERULAR FILTRATION RATE (test code=GFR) 146 >60 The estimated glomerular filtration rate is computed usingpatient race, age (>18), sex, and serum creatinine. If anyof the needed data elements are missing the Laboratory cannot compute an estimation of the glomerular filtration rate. CREATININE (test code=CREAT) 0.6 mg/dL 0.7-1.3 CALCIUM (test code=CA) 8.6 mg/dL 8.4-10.2 [id number] 05:22:00* Test Item Value Reference Range Comments MAGNESIUM (test code=MAG) mg/dL 1.6-2.3 TSH REFLEX TO [id number] 05:22:00* Test Item Value Reference Range Comments TSH REFLEX TO FT4 (test code=TSHREFLEX) MIU/L 0.465-4.68 CBC W/AUTO [id number] 05:09:00* Test Item Value Reference Range Comments WHITE BLOOD CELL (test code=WBC) 9.4 x10 3/uL 5.0-12.0 RED BLOOD CELL (test code=RBC) 3.55 x10 6/uL 4.70-6.10 HEMOGLOBIN (test code=HGB) 10.4 g/dL 14.0-18.0 HEMATOCRIT (test code=HCT) 33.0 % 37.0-49.0 MEAN CELL VOLUME (test code=MCV) 93 fL 80-94 MEAN CELL HGB (test code=MCH) 29.3 pg 27-31 MEAN CELL HGB CONCENTRATION (test code=MCHC) 31.5 g/dL 33-37 RED CELL DISTRIBUTION WIDTH (test code=RDW) 13.9 % 11.5-15.5 PLATELET COUNT (test code=PLT) 269 x10 3/uL 130-400 MEAN PLATELET VOLUME (test code=MPV) 9.2 fL 9.4-16.4 NEUTROPHIL % (test code=NT%) 71.1 % 43-65 IMMATURE GRANULOCYTE % (test code=IG%) 0.6 % 0.0-2.0 LYMPHOCYTE % (test code=LY%) 13.3 % 20.5-45.5 MONOCYTE % (test code=MO%) 7.2 % 5.5-11.7 EOSINOPHIL % (test code=EO%) 6.8 % 0.9-2.9 BASOPHIL % (test code=BA%) 1.0 % 0.2-1.0 NUCLEATED RBC % (test code=NRBC%) 0.0 % 0-1.0 NEUTROPHIL # (test code=NT#) 6.71 x10 3/uL 2.2-4.8 IMMATURE GRANULOCYTE # (test code=IG#) 0.06 x10 3/uL 0-0.03 LYMPHOCYTE # (test code=LY#) 1.25 x10 3/uL 1.3-2.9 MONOCYTE # (test code=MO#) 0.68 x10 3/uL 0.3-0.8 EOSINOPHIL # (test code=EO#) 0.64 x10 3/uL 0.0-0.2 BASOPHIL # (test code=BA#) 0.09 x10 3/uL 0.0-0.1 CARDIAC ENZYMES [id number] 13:35:00* Test Item Value Reference Range Comments TROPONIN-I (test code=TROPI) < 0.012 ng/mL 0.012-0.033 Please be advised of the updated reference ranges for the new Chemistry instrumentation. VITROS TROPONIN I CRITERIANORMAL PATIENT W/O CIRCULATING TNI: 0.012-0.033 ng/mLCIRCULATING TNI PRESENT: 0.034-0.119 ng/mL(MAY BE AT RISK OF AMI)AMI DIAGNOSTIC CUTOFF: >/=0.120 ng/mL~~~~~~~~~~~~~~~~~~~~~~~~~~~~~~~~~~~~~~~~~~~~~~~~~~~~~~~~~~~The use of serial sampling and testing protocol is arecommended practice.An elevated troponin level alone is often not sufficient fordiagnosis of myocardial infarction. Troponin results obtained by different assays may vary.Evaluation of the extent of myocardial damage based onincrease of troponin would be valid only if similarmethodology is used.~~~~~~~~~~~~~~~~~~~~~~~~~~~~~~~~~~~~~~~~~~~~~~~~~~~~~~~~~~~ CARDIAC ENZYMES [id number] 09:52:00* Test Item Value Reference Range Comments TROPONIN-I (test code=TROPI) < 0.012 ng/mL 0.012-0.033 Please be advised of the updated reference ranges for the new Chemistry instrumentation. VITROS TROPONIN I CRITERIANORMAL PATIENT W/O CIRCULATING TNI: 0.012-0.033 ng/mLCIRCULATING TNI PRESENT: 0.034-0.119 ng/mL(MAY BE AT RISK OF AMI)AMI DIAGNOSTIC CUTOFF: >/=0.120 ng/mL~~~~~~~~~~~~~~~~~~~~~~~~~~~~~~~~~~~~~~~~~~~~~~~~~~~~~~~~~~~The use of serial sampling and testing protocol is arecommended practice.An elevated troponin level alone is often not sufficient fordiagnosis of myocardial infarction. Troponin results obtained by different assays may vary.Evaluation of the extent of myocardial damage based onincrease of troponin would be valid only if similarmethodology is used.~~~~~~~~~~~~~~~~~~~~~~~~~~~~~~~~~~~~~~~~~~~~~~~~~~~~~~~~~~~ Spec Comments: Cancel third set if POC Troponin completed in ED HGBA1C - GLYCOSYLATED [id number] 09:49:00* Test Item Value Reference Range Comments GLYCOSYLATED HEMOGLOBIN (HA1C) (test code=GLYHGB) 6.1 % 0-5.9 Current guidelines recommend a treatment goal of <7% fordiabetic patients. A1c may be overestimated in diabeticpatients exhibiting poor control and who are alsoheterozygous or homozygous for HgbS or HgbC. Totalglycohemoglobin is a better indicator of diabetic control inpatients with these hemoglobin variants. - DUP VEIN [id number] 08:19:00 FAX: Brayden Arenas MD [phone] Portal: St: ADM FAX: Keno Hdz MD [phone] Name: RUSH ASTORGA [facility] [place] : 1960 Age/S: 58/M [address] Unit #: [id number] Loc: C.5514 [place] [address] Phys: Keon Recinos MD Acct: [id number] Dis Date: Status: ADM IN PHONE #: [phone] Exam Date: 02/04/2019817 FAX #: [phone] Reason: BLE EDEMAA EXAMS: CPT CODE: [id number] [place] [address] EXAM: Ultrasound Bilateral lower extremity venous Doppler HISTORY: Bilateral lower extremity edema LOCATION: C3 TECHNIQUE: Grayscale real-time B-mode imaging with color flow and spectral flow Doppler analysis was performed of the Bilateral lower ex tremity. COMPARISON: None available time of interpretation. FINDINGS: There is normal compressibility with no evidence of th rombus involving the visualized venous structures of the bilateral lower e xtremities. IMPRESSION: No DVT in the visualized struc tures of the bilateral lower extremities. Electronic ally Signed by CAREY SELBY MD on 9 at 0819 Reported and signed by: CAREY COVARRUBIAS MD CC: Brayden Piña MD; Keon Recinos MD Technologist: ORTIZ SALAZAR Trnmdrd Date/Time/By: 02/04/2019 (818) : By: Ana PaulaEB14 PAGE 1 Signed Report FAX: Brayden Buckley MD [phone] Portal: St: ADM FAX: Bess Hdz MD [phone] Name[facility] : 1960 Age/S: 58/M [address] Unit #: [id number] Loc: C.55[address] [place] [address] Phys: Keon Recinos MD Acct: [id number] Dis Date: Status: ADM IN PHONE #: [phone] Exam Date: 02/04/2019817 FAX #: [phone] Reason: BLE EDEMAA EXAMS: CPT CODE: [id number] [place] [id number] < Continued> Orig Print D/T: S: 02/04/2019 (0822) PAGE 2 Signed Report COMPREHENSIVE METABOLIC [id number] 07:31:00* Test Item Value Reference Range Comments SODIUM (test code=NA) 139 mmol/L 137-145 POTASSIUM (test code=K) 3.7 mmol/L 3.4-5.0 CHLORIDE (test code=CL) 105 mmol/L 98-107 CARBON DIOXIDE (test code=CO2) 23 mmol/L 22-30 GLUCOSE (test code=GLU) 124 mg/dL 74-106 BLOOD UREA NITROGEN (test code=BUN) 19 mg/dL 9-20 GLOMERULAR FILTRATION RATE (test code=GFR) 146 >60 The estimated glomerular filtration rate is computed usingpatient race, age (>18), sex, and serum creatinine. If anyof the needed data elements are missing the Laboratory cannot compute an estimation of the glomerular filtration rate. CREATININE (test code=CREAT) 0.6 mg/dL 0.7-1.3 TOTAL PROTEIN (test code=PROT) 6.4 g/dL 6.3-8.2 ALBUMIN (test code=ALB) 3.3 g/dL 3.5-5.0 CALCIUM (test code=CA) 8.6 mg/dL 8.4-10.2 BILIRUBIN TOTAL (test code=BILT) 0.3 mg/dL 0.2-1.3 BILIRUBIN CONJUGATED (test code=BILCON) 0 mg/dL 0-0.3 ~~~~~~~~~~~~~~~~~~~~~~~~~~~~~~~~~~~~~~~~~~~~~~~~~~~~~~~~~~~~CONJUGATED BILIRUBIN IS THE REPLACEMENT ASSAY FOR DIRECTBILIRUBIN.~~~~~~~~~~~~~~~~~~~~~~~~~~~~~~~~~~~~~~~~~~~~~~~~~~~~~~~~~~~~ BILIRUBIN UNCONJUGATED (test code=BILUNC) 0 mg/dL 0-1.1 SGOT/AST (test code=AST) 23 U/L 15-46 SGPT/ALT (test code=ALT) 21 U/L 13-69 ALKALINE PHOSPHATASE (test code=ALKP) 54 U/L 38-126 SED [id number] 06:27:00* Test Item Value Reference Range Comments SED RATE (test code=SEDW) 12 mm/hr 0-20 LIPID PROFILE (CORONARY RISK)2019-02-04 05:16:00* Test Item Value Reference Range Comments TRIGLYCERIDES (test code=TRIG) 111 mg/dL TRIGLYCERIDES REFERENCE RANGE:Normal: <150 mg/dLBorderline High: 150-199 mg/dLHigh: 200-499 mg/dLVery High: >=500 mg/dL CHOLESTEROL (test code=CHOL) 157 mg/dL CHOLESTEROL REFERENCE RANGE:DESIRABLE: < 200 mg/dLBORDERLINE: 200-239 mg/dLHIGH: >=240 mg/dL HDL CHOLESTEROL (test code=HDL) 40 mg/dL 40-59 LIPOPROTEIN LDL (test code=LDLC) 107.01 mg/dL 32-99 CORONARY RISK FACTOR (test code=RISK) 3.93 CHOL/HDL RISK MALE: 1/2 AVG 3.43 FEMALE: 1/2 AVG 3.27 AVG 4.97 AVG 4.44 2X AVG 9.55 2X AVG 7.05 3X AVG 23.39 3X AVG 11.04~~~~~~~~~~~~~~~~~~~~~~~~~~~~~~~~~~~~~~~~~~~~~~~~~~~~~~~~~~~~National Cholesterol Education (NCEP) Guidelines:~~~~~~~~~~~~~~~~~~~~~~~~~~~~~~~~~~~~~~~~~~~~~~~~~~~~~~~~~~~~ HDL Cholesterol<40mg/dL: HDL Cholesterol (Major risk factor for CHD)>60mg/dL: HDL Cholesterol (Negative risk factor for CHD)40-59mg/dL: Borderline Risk LDL Cholesterol<100mg/dL: Desirable LDL-C sgozjkadxjvgz475-047kg/dL: Borderline High Risk LDL-C udcfarfylxwew140-495jl/dL: High risk LDL-C concentration HDL-LDL Cholesterol is affected by a number of factors suchas smoking, age and sex.~~~~~~~~~~~~~~~~~~~~~~~~~~~~~~~~~~~~~~~~~~~~~~~~~~~~~~~~~~~~ Last PROBNP result: 28.7 g/dL on 01/15/182307Spec Comments: Cancel third set if POC Troponin completed in [id number] 05:16:00* Test Item Value Reference Range Comments MAGNESIUM (test code=MAG) 1.7 mg/dL 1.6-2.3 Last PROBNP result: 28.7 g/dL on 01/15/182307Spec Comments: Cancel third set if POC Troponin completed in EDNT PRO-BRAIN NATRIURETIC PEPTI 2019-02-04 05:16:00* Test Item Value Reference Range Comments NT PRO-BRAIN NATRIURETIC PEPTI (test code=PROBNP) 47.1 pg/mL 0-299 ~~~~~~~~~~~~~~~~~~~~~~~~~~~~~~~~~~~~~~~~~~~~~~~~~~~~~~~~~~~~NT PRO-BNP IS THE REPLACEMENT ASSAY FOR BNP.~~~~~~~~~~~~~~~~~~~~~~~~~~~~~~~~~~~~~~~~~~~~~~~~~~~~~~~~~~~~RULE-IN CUT POINTS FOR PATIENTS WITH SUSPECTED ACUTECONGESTIVE HEART FAILURE:<50 yrs old: >450 pg/mL50-75 yrs old: >900 pg/mL>75 yrs old: >1800 pg/mLA positive bias may occur on patients taking BIOTINsupplements. Last PROBNP result: 28.7 g/dL on 01/15/182307Spec Comments: Cancel third set if POC Troponin completed in EDCARDIAC ENZYMES [id number] 05:16:00* Test Item Value Reference Range Comments TROPONIN-I (test code=TROPI) < 0.012 ng/mL 0.012-0.033 Please be advised of the updated reference ranges for the new Chemistry instrumentation. VITROS TROPONIN I CRITERIANORMAL PATIENT W/O CIRCULATING TNI: 0.012-0.033 ng/mLCIRCULATING TNI PRESENT: 0.034-0.119 ng/mL(MAY BE AT RISK OF AMI)AMI DIAGNOSTIC CUTOFF: >/=0.120 ng/mL~~~~~~~~~~~~~~~~~~~~~~~~~~~~~~~~~~~~~~~~~~~~~~~~~~~~~~~~~~~The use of serial sampling and testing protocol is arecommended practice.An elevated troponin level alone is often not sufficient fordiagnosis of myocardial infarction. Troponin results obtained by different assays may vary.Evaluation of the extent of myocardial damage based onincrease of troponin would be valid only if similarmethodology is used.~~~~~~~~~~~~~~~~~~~~~~~~~~~~~~~~~~~~~~~~~~~~~~~~~~~~~~~~~~~ Last PROBNP result: 28.7 g/dL on 01/15/18 - 2307Spec Comments: Cancel third set if POC Troponin completed in EDLIPID PROFILE (CORONARY RISK) 2019-02-04 05:09:00* Test Item Value Reference Range Comments TRIGLYCERIDES (test code=TRIG) 111 mg/dL TRIGLYCERIDES REFERENCE RANGE:Normal: <150 mg/dLBorderline High: 150-199 mg/dLHigh: 200-499 mg/dLVery High: >=500 mg/dL CHOLESTEROL (test code=CHOL) 157 mg/dL CHOLESTEROL REFERENCE RANGE:DESIRABLE: < 200 mg/dLBORDERLINE: 200-239 mg/dLHIGH: >=240 mg/dL HDL CHOLESTEROL (test code=HDL) 40 mg/dL 40-59 LIPOPROTEIN LDL (test code=LDLC) mg/dL 32-99 CORONARY RISK FACTOR (test code=RISK) 3.93 CHOL/HDL RISK MALE: 1/2 AVG 3.43 FEMALE: 1/2 AVG 3.27 AVG 4.97 AVG 4.44 2X AVG 9.55 2X AVG 7.05 3X AVG 23.39 3X AVG 11.04~~~~~~~~~~~~~~~~~~~~~~~~~~~~~~~~~~~~~~~~~~~~~~~~~~~~~~~~~~~~National Cholesterol Education (NCEP) Guidelines:~~~~~~~~~~~~~~~~~~~~~~~~~~~~~~~~~~~~~~~~~~~~~~~~~~~~~~~~~~~~ HDL Cholesterol<40mg/dL: HDL Cholesterol (Major risk factor for CHD)>60mg/dL: HDL Cholesterol (Negative risk factor for CHD)40-59mg/dL: Borderline Risk LDL Cholesterol<100mg/dL: Desirable LDL-C xjyybotimjdma538-635nu/dL: Borderline High Risk LDL-C nzuupfwgvvorc891-392rt/dL: High risk LDL-C concentration HDL-LDL Cholesterol is affected by a number of factors suchas smoking, age and sex.~~~~~~~~~~~~~~~~~~~~~~~~~~~~~~~~~~~~~~~~~~~~~~~~~~~~~~~~~~~~ Last PROBNP result: 28.7 g/dL on 01/15/182307Spec Comments: Cancel third set if POC Troponin completed in [id number] 05:09:00* Test Item Value Reference Range Comments MAGNESIUM (test code=MAG) 1.7 mg/dL 1.6-2.3 Last PROBNP result: 28.7 g/dL on 01/15/182307Spec Comments: Cancel third set if POC Troponin completed in EDNT PRO-BRAIN NATRIURETIC PEPTI 2019-02-04 05:09:00* Test Item Value Reference Range Comments NT PRO-BRAIN NATRIURETIC PEPTI (test code=PROBNP) pg/mL 0-299 Last PROBNP result: 28.7 g/dL on 01/15/182307Spec Comments: Cancel third set if POC Troponin completed in EDCARDIAC ENZYMES [id number] 05:09:00* Test Item Value Reference Range Comments TROPONIN-I (test code=TROPI) ng/mL 0.012-0.033 Last PROBNP result: 28.7 g/dL on 01/15/182307Spec Comments: Cancel third set if POC Troponin completed in EDCARDIAC ENZYMES [id number] 04:48:00* Test Item Value Reference Range Comments TROPONIN-I (test code=TROPI) < 0.012 ng/mL 0.012-0.033 Please be advised of the updated reference ranges for the new Chemistry instrumentation. VITROS TROPONIN I CRITERIANORMAL PATIENT W/O CIRCULATING TNI: 0.012-0.033 ng/mLCIRCULATING TNI PRESENT: 0.034-0.119 ng/mL(MAY BE AT RISK OF AMI)AMI DIAGNOSTIC CUTOFF: >/=0.120 ng/mL~~~~~~~~~~~~~~~~~~~~~~~~~~~~~~~~~~~~~~~~~~~~~~~~~~~~~~~~~~~The use of serial sampling and testing protocol is arecommended practice.An elevated troponin level alone is often not sufficient fordiagnosis of myocardial infarction. Troponin results obtained by different assays may vary.Evaluation of the extent of myocardial damage based onincrease of troponin would be valid only if similarmethodology is used.~~~~~~~~~~~~~~~~~~~~~~~~~~~~~~~~~~~~~~~~~~~~~~~~~~~~~~~~~~~ Spec Comments: Cancel third set if POC Troponin completed in ED LACTIC [id number] 04:27:00* Test Item Value Reference Range Comments LACTIC ACID (test code=LACT) 1.3 mmol/L 0.7-2.0 [id number] 04:19:00* Test Item Value Reference Range Comments D-DIMER (test code=DDIMER) 461 ng/mLFEU 0-500 THE DDIMER METHOD IS USED IN THE EXCLUSION OF DEEP VEINTHROMBOSIS AND/OR PULMONARY EMBOLISM AND THE CLINICAL CUT-OFF VALUE FOR EXCLUSION (500 NG/ML FEU) OF THESE CONDITIONSIS VALIDATED BY THE LABOR ARBITRATOR HEARING OFFICE OF THE METHOD. A NEGATIVE DDIMER RESULT WHEN COMBINED WITH A CLINICALASSESSMENT OF LOW PRETEST PROBABILITY HAS BEEN SHOWN TO HAVEA HIGH NEGATIVE PREDICTIVE VALUE OF DVT OR PE. D-DIMER VALUES >500 ng/mL ARE NOT DIAGNOSTIC FOR DVT,PEOR DIC WITHOUT OTHER CONFIRMATORY TESTS AND APPROPRIATECLINICAL EVALUATIONS. CBC W/AUTO [id number] 04:16:00* Test Item Value Reference Range Comments WHITE BLOOD CELL (test code=WBC) 8.3 x10 3/uL 5.0-12.0 RED BLOOD CELL (test code=RBC) 3.38 x10 6/uL 4.70-6.10 HEMOGLOBIN (test code=HGB) 9.8 g/dL 14.0-18.0 HEMATOCRIT (test code=HCT) 31.3 % 37.0-49.0 MEAN CELL VOLUME (test code=MCV) 93 fL 80-94 MEAN CELL HGB (test code=MCH) 29.0 pg 27-31 MEAN CELL HGB CONCENTRATION (test code=MCHC) 31.3 g/dL 33-37 RED CELL DISTRIBUTION WIDTH (test code=RDW) 13.8 % 11.5-15.5 PLATELET COUNT (test code=PLT) 263 x10 3/uL 130-400 MEAN PLATELET VOLUME (test code=MPV) 9.1 fL 9.4-16.4 NEUTROPHIL % (test code=NT%) 65.9 % 43-65 IMMATURE GRANULOCYTE % (test code=IG%) 0.4 % 0.0-2.0 LYMPHOCYTE % (test code=LY%) 19.4 % 20.5-45.5 MONOCYTE % (test code=MO%) 7.7 % 5.5-11.7 EOSINOPHIL % (test code=EO%) 5.9 % 0.9-2.9 BASOPHIL % (test code=BA%) 0.7 % 0.2-1.0 NUCLEATED RBC % (test code=NRBC%) 0.0 % 0-1.0 NEUTROPHIL # (test code=NT#) 5.48 x10 3/uL 2.2-4.8 IMMATURE GRANULOCYTE # (test code=IG#) 0.03 x10 3/uL 0-0.03 LYMPHOCYTE # (test code=LY#) 1.61 x10 3/uL 1.3-2.9 MONOCYTE # (test code=MO#) 0.64 x10 3/uL 0.3-0.8 EOSINOPHIL # (test code=EO#) 0.49 x10 3/uL 0.0-0.2 BASOPHIL # (test code=BA#) 0.06 x10 3/uL 0.0-0.1 - XR CHEST 1 [id number] 21:23:00 FAX: Katrin Coughlin [phone] Portal: St: PRE Name: FELECIA RAMIREZ [facility] : [birth year] Age/S: 58/M [id number] Unit #: [id number] Loc: [place] [address] Phys: Katrin Coughlin [employer] Acct: [id number] Dis Date: Status: PRE ER PHONE #: [phone] Exam Date: 02/03/2019 1509 FAX #: [phone] Reason: cp EXAMS: CPT CODE: [id number] XR CHEST 1 V [id number] EXAM: - XR CHEST 1 V HISTORY: Chest pain. COMPARISON: February 03, 2019. FINDINGS: Single AP view of the chest is provided. Heart s ize and vascularity are within normal limits. The lungs are clear of foca l consolidation. No effusion, pneumothorax, or acute osseous abnormality. IMPRESSION: No radiographic evidence of acute c ardiopulmonary process. 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 Rather, the patient'sclinical presentation (history, physical exam) and ECGshould be used in conjunction with troponin in thediagnostic evaluation of suspected myocardial infarction. Aserial sampling protocol is recommended to facilitate theidentification of temporal changes in troponin levelscharacteristic of [place]. CBC W/O [id number] 10:53:00* Test Item Value Reference Range Comments WHITE BLOOD CELL (test code=WBC) 8.6 K/mm3 4.1-12.1 RED BLOOD CELL (test code=RBC) 3.73 M/mm3 3.8-5.5 HEMOGLOBIN (test code=HGB) 10.9 G/DL 10.6-15.8 HEMATOCRIT (test code=HCT) 34.4 % 31.8-47.4 MEAN CELL VOLUME (test code=MCV) 92.2 fL 80.1-101.1 MEAN CELL HGB (test code=MCH) 29.2 pg 25.3-35.3 MEAN CELL HGB CONCETRATION (test code=MCHC) 31.7 G/DL 32.7-35.1 RED CELL DISTRIBUTION WIDTH (test code=RDW) 13.8 % 12.2-16.4 PLATELET COUNT (test code=PLT) 308 K/mm3 155-337 MEAN PLATELET VOLUME (test code=MPV) 9.0 fL 7.6-10.4 CHEMISTRY 7 [id number] 10:51:00* Test Item Value Reference Range Comments IONIZED CALCIUM (test code=CAIABG) mmol/L 1.13-1.32 ISTAT-TCO2 VENOUS (test code=TCO2VP) MMOL/L 21-32 ISTAT-SODIUM (test code=NAP) MMOL/L 135-148 ISTAT-POTASSIUM (test code=KP) MMOL/L 3.5-5.9 ISTAT-CHLORIDE (test code=CLP) MMOL/L 98-106 ISTAT-ANION GAP (test code=GAPP) MEQ/L 10-20 ISTAT-GLUCOSE (test code=GLUP) MG/DL 70-119 ISTAT-BUN (test code=BUNP) MG/DL 8-28 BEDSIDE CREATININE (test code=CREATBED) MG/DL 0.6-1.2 GLOMERULAR FILTRATION RATE POC (test code=GFRBED) 137 49-113 CHEMISTRY 7 [id number] 10:51:00* Test Item Value Reference Range Comments IONIZED CALCIUM (test code=CAIABG) 1.21 mmol/L 1.13-1.32 ISTAT-TCO2 VENOUS (test code=TCO2VP) 25 MMOL/L 21-32 ISTAT-SAMPLE SOURCE (test code=SRCIST) VENOUS SPECIMEN Descript Specimen ISTAT-SODIUM (test code=NAP) 139 MMOL/L 135-148 ISTAT-POTASSIUM (test code=KP) 4.0 MMOL/L 3.5-5.9 ISTAT-CHLORIDE (test code=CLP) 104 MMOL/L 98-106 ISTAT-ANION GAP (test code=GAPP) 15.0 MEQ/L 10-20 ISTAT-GLUCOSE (test code=GLUP) 108 MG/DL 70-119 ISTAT-BUN (test code=BUNP) 15 MG/DL 8-28 BEDSIDE CREATININE (test code=CREATBED) 0.6 MG/DL 0.6-1.2 GLOMERULAR FILTRATION RATE POC (test code=GFRBED) 137 49-113 - XR CHEST 1 [id number] 10:27:00 FAX: Shahriar Medeiros MD Portal: E St: PRE Patient Na me: FELECIA ASTORGA Unit No: [id number] EXAMS: CPT CODE: [id number] XR CHEST 1 V 42445 EXAM: XR Chest 1 View INDICATION: Chest pain LOCATION CODE: C3 COMPAR ANNA MARIE: Chest radiograph dated 01/23/2019 TECHNIQUE: Frontal view of the chest was obtained. FINDINGS: The lungs are clifford ar. There is no pleural effusion or pneumothorax. The cardiomediastinal silhouette is unchanged. No acute osseous abnormality is identified. IMPRESSION: No acute cardiopulmonary abnormality. at 1027 Reported and signed by: Carey Selby MD CC: Shahriar Martinez MD Dictated Date/Time: 1 04/06/2018 (1027)Technologist: Ap Jurado Transcribed Date/Time: 02/03/2019 (1027) By: Ana PaulaEB14 Orig Print D/T: S: 02/03/2019 (1030) LOI Chaves NAME: FELECIA ASTORGA [address] [place] [address] PHYS: Shahriar Olivares, [place] [address] : 1960 AGE: 58 SEX: M LOC: B.ERS PHONE #: [phone] EXAM DATE: STATUS: PRE ER FAX #: [phone] RAD NO: DC Dt: PAGE 1 Signed Report BRAIN NATRIURETIC [id number] 20:55:00* Test Item Value Reference Range Comments proBNP (test code=PBNP) 18 pg/mL 0-125 TROPONIN [id number] 20:53:00* Test Item Value Reference Range Comments TROPONIN I (test code=A84) <0.015 ng/mL 0.000-0.045 COMPREHENSIVE METABOLIC [id number] 20:53:00* Test Item Value Reference Range Comments GLUCOSE (test code=06D) 105 mg/dL 75-100 SODIUM (test code=01A) 140 mmol/L 136-145 POTASSIUM (test code=01B) 3.7 mmol/L 3.6-5.1 CHLORIDE (test code=04A) 111 mmol/L 98-107 CO2 (test code=02A) 25 mmol/L 22-32 ANION GAP (test code=ANG) 7.7 mmol/L BUN (test code=05D) 18 mg/dL 7-18 CREATININE (test code=03E) 0.7 mg/dL 0.7-1.3 BUN/CREA (test code=BCR) 27 12-20 CALCIUM (test code=09D) 8.6 mg/dL 8.3-9.5 BILI TOTAL (test code=11A) 0.2 mg/dL 0.2-1.0 PROTEIN (test code=07D) 6.8 g/dL 6.4-8.2 ALBUMIN (test code=08D) 3.2 g/dL 3.5-4.8 GLOBULIN (test code=GLB) 3.6 g/dL 1.5-3.8 ALB/GLOB (test code=AGRR) 0.9 1.0-2.6 ALK PHOS (test code=35A) 70 IU/L 42-121 AST (test code=30A) 16 IU/L <=42 ALT (test code=31A) 28 IU/L <=78 CT HEAD W/O [id number] 20:48:11EXAM: CT HEAD W/O CONTRASTLOCATION: [id number]: 58 years-year old Male with s/p fallTECHNIQUE: Computerized tomography images from the skull base to the vertexwere obtained. Coronal and sagittal reformatted images are provided. This exam was performed according to our departmental dose optimizationprogram, which includes automated exposure control, adjustment of the mA and/orkV according to patient size and/or use of iterative reconstruction technique.COMPARISON: NoneFINDINGS: Brain: The brain parenchymal architecture is unremarkable. The brainparenchyma is age appropriate. There is no evidence of an acute territorialinfarct.Hemorrhage: There is no CT evidence of acute intracranial hemorrhage.Mass/edema: There is no CT evidence of mass effect, midline shift, orparenchymal edema.Ventricles: There is no evidence of hydrocephalus.Bones: There is no evidence of acute displaced calvarial fracture.Sinuses: The visualized portions of the paranasal sinuses and mastoid air cellsare free of significant opacification.Other/Soft Tissues: Unremarkable.IMPRESSION:1. No CT evidence of acute intracranial abnormality. CT CERVICAL SPINE W/O [id number] 20:46:41EXAM: CT CERVICAL SPINE WITHOUT CONTRASTLOCATION: [id number]: s/p fallTECHNIQUE: Axial tomograms through the cervical spine were obtained withoutintravenous contrast. Sagittal and coronal reformatted images are provided.COMPARISON: None available time of interpretation.FINDINGS:Cervical alignment is maintained. No acute fracture or dislocation. The prevertebral soft tissues are within normal limits. The visualized softtissues of the neck show no significant abnormalities .IMPRESSION:No acute osseous findings.CBC (INCLUDES AUTOMATED DIFFERENTIAL) 2019-02-02 20:46:00* Test Item Value Reference Range Comments WBC (test code=WBC) 8.2 10\S\3/uL 4.5-11.0 RBC (test code=RBC) 3.56 10\S\6/uL 4.20-5.60 HGB (test code=HBG) 10.6 g/dL 14.0-18.0 HCT (test code=HCT) 32.2 % 35.0-46.0 MCV (test code=MCV) 90.4 fL 80.0-94.0 MCH (test code=MCH) 29.8 pg 27.0-31.0 MCHC (test code=MCHC) 32.9 g/dL 32.0-36.0 RDW (test code=RDW) 13.9 % 11.5-14.5 PLT (test code=PLT) 304 10\S\3/uL 130-400 MPV (test code=MPV) 9.0 fL 9.4-12.4 NEUTROP # (test code=NE#) 5.7 10\S\3/uL 2.0-8.0 LYMPH # (test code=LY#) 1.1 10\S\3/uL 1.2-4.0 MONOCYTE # (test code=MO#) 0.8 10\S\3/uL 0.0-1.1 EOSINOPH # (test code=EO#) 0.5 10\S\3/uL 0.0-0.7 BASOPHIL # (test code=BA#) 0.1 10\S\3/uL 0.0-0.3 IG # (test code=IG#) 0.03 10\S\3/uL 0.00-0.06 NRBC # (test code=NRBC#) 0.00 10\S\3/uL 0.00-0.01 NEUTROPH % (test code=NE%) 69.7 % 35.0-73.0 LYMPH % (test code=LY%) 13.6 % 20.0-55.0 MONO % (test code=MO%) 9.6 % 2.5-10.0 EOSINOPH % (test code=EO%) 6.1 % 0.0-5.0 BASOPHIL % (test code=BA%) 0.6 % 0.0-2.0 IG % (test code=IG%) 0.4 % 0.0-0.8 NRBC% (test code=NRBC%) 0.0 % 0.0-0.2 MANDIFF (test code=MDIFF) NO NO PRO TIME AND [id number] 20:44:00* Test Item Value Reference Range Comments PT (test code=TT) 11.6 s 9.8-13.6 INR (test code=INR) 1.0 INRH (test code=INRH) SUGGESTED THERAPEUTIC RANGE FOR INR: 2.5 - 3.5 For Patients with Prosthetic Valves or Patients with recurrent Thromboembolic Events 2.0 - 3.0 For Most Other Applications PTT (test code=PTT) 35.4 s 20.2-38.0 PTTH (test code=PTTH) To monitor the effectiveness of heparin, we offer the Anti-Xa (Heparin Assay). It can be used for either unfractionated or LMW Heparin. Order Code is ANTI-XA XR CHEST 1 VIEW [id number] 19:56:02LOCATION: [id number]: 58-year-old male who suffered a fall.COMMENT: A frontal chest radiograph was obtained at the bedside at 7:50 p.m., and iscompared to a study of 01/11/18.The lungs are clear and well-aerated. The cardiac silhouette, thong, andmediastinum are within normal limits. The skeleton is intact, and thesurrounding soft tissues are unremarkable. IMPRESSION:Unremarkable portable examination of the chest.POCT- GLUCOSE [id number] 09:57:00* Test Item Value Reference Range Comments POC-GLUCOSE METER (BEAKER) (test nfwe=3962) 104 mg/dL 70-110 : TESTED AT [address], [address]: Forestry Foreman/Big Data Solutions Architect QD=[id number] for MAULIK COE - XR ABDOMEN [id number] 10:36:00Patient Name: FELECIA ASTORGA Unit No: [id number] EXAMS: CPT: [id number] XR ABDOMEN 2V 45627 - XR ABDOMEN 2V 01/30/2019 8:20 AM HISTORY: IVC filter eval COMPARISON: None TECHNIQUE: There are supine and upright views of the abdomen. FINDINGS: There are surgical clips in the right upper quadrant consistent with previous cholecystectomy. There is an IVC filter in standard position without significant tilt. No evidence of fracture. Moderate amount stool throughout the cecum and right colon measuring 7.6 cm. No other dilated bowel loops are seen. Mild degenerative changes lower lumbar spine. IMPRESSION: Constipation with 7.6 cm of stool in the cecum and right colon. No evidence of obstruction or pneumoperitoneum. IVC filter in standard position. Previous cholecystectomy. at 1036 Reported and signed by: PABLO LAWSON M.D. CC: Stanislav Joyce MD; Praful Mcpherson MD Technologist: Jc Montalvo Fluoro Time: DAP (Gy m2): Air Kerma (mGy): Trscr Dt/Tm: 01/30/2019 (1036) by:Shantel Orig Print D/T: S: 01/30/2019 (1040) BATCH NO: N/A Name: FELECIA ASTORGA [facility] [place] Phys: Praful Torres MD [address] [facility] : 1960 Age: 58 Sex: M Daniel Kapoor Loc: T.398 A Exam Date: 01/30/2019 Status: DIS IN PH: FAX: PAGE 1 Signed Report - XR ABDOMEN [id number] 10:36:00 Patient Name: FELECIA ASTORGA Unit No: [id number] EXAMS : CPT: [id number] XR ABDO MEN 2V 01031 - XR ABDOMEN 2V 1 04/02/2018 8:20 AM HISTORY: IVC filter eval COMPARISON: None TECHNIQUE: There are supine and upright views o f the abdomen. FINDINGS: There are surgical clips in the right up per quadrant consistent with previous cholecystectomy. There is an IVC fi lter in standard position without significant tilt. No evidence of fractu re. Moderate amount stool throughout the cecum and right colon carla suring 7.6 cm. No other dilated bowel loops are seen. Mild degenerative changes lower lumbar spine. IMPRESSION: Constipati on with 7.6 cm of stool in the cecum and right colon. No evidence of obstruction or pneumoperitoneum. IVC filter in standard position. Previous cholecystectomy. at 1036 Reported and signed by: HUMZA LAWSON M.D. CC: Stanislav Joyce MD; Praful taylor MD Technologist: Jc Montalvo Fluoro Time: DAP (Gy m2): Air Kerma (mGy): Trscr Dt/ Tm: 01/30/2019 (1036) by:Shantel Orig Print D/T: S: 1 04/02/2018 (1040) [facility] NO: N/A Name: [facility] AST[facility] [place] [facility]: [facility] 1960 Age: 58 Sex: M Daniel Kapoor Loc: T.398 A Exam D ate: 01/30/2019 Status: ADM IN PH: FAX: PAGE 1 Signed Report TROPONIN-I 2019-01-30 07:21:00* Test Item Value Reference Range Comments TROPONIN-I (test code=TROPI) 0.00 ng/mL 0.00-0.03 [id number] 00:21:00* Test Item Value Reference Range Comments TROPONIN-I (test code=TROPI) 0.00 ng/mL 0.00-0.03 [id number] 21:13:00* Test Item Value Reference Range Comments TROPONIN-I (test code=TROPI) 0.01 ng/mL 0.00-0.03 LIVER FUNCTION [id number] 19:45:00* Test Item Value Reference Range Comments TOTAL PROTEIN (test code=PROT) 7.0 g/dL 6.0-8.3 ALBUMIN (test code=ALB) 3.6 g/dL 3.2-5.5 BILIRUBIN TOTAL (test code=BILT) 0.3 mg/dL 0.2-1.0 C-anejis-a-benzoquinone imine (NAPQI), a metabolite ofacetaminophen (paracetamol), may generate erroneously lowresults in samples for patients that have taken toxic dosesof acetaminophen (paracetamol). BILIRUBIN DIRECT (test code=BILD) 0.1 mg/dL 0.0-0.2 M-tlxhfj-r-benzoquinone imine (NAPQI), a metabolite ofacetaminophen (paracetamol), may generate erroneously lowresults in samples for patients that have taken toxic dosesof acetaminophen (paracetamol). BILIRUBIN INDIRECT (test code=BILIND) 0.2 mg/dL SGOT/AST (test code=AST) 29 UNITS/L 10-42 SGPT/ALT (test code=ALT) 18 UNITS/L 10-40 ALKALINE PHOSPHATASE (test code=ALKP) 60 UNITS/L 38-126 [id number] 19:45:00* Test Item Value Reference Range Comments LIPASE (test code=LIP) 32 UNITS/L 22-151 CBC W/AUTO [id number] 19:06:00* Test Item Value Reference Range Comments WHITE BLOOD CELL (test code=WBC) 9.42 K/mm3 5.0-12.0 RED BLOOD CELL (test code=RBC) 3.71 M/mm3 4.70-6.10 HEMOGLOBIN (test code=HGB) 10.9 G/DL 14.0-18.0 HEMATOCRIT (test code=HCT) 33.7 % 37.0-49.0 MEAN CELL VOLUME (test code=MCV) 91 fL 80-94 MEAN CELL HGB (test code=MCH) 29.4 PGM 27-31 MEAN CELL HGB CONCENTRATION (test code=MCHC) 32.3 G/DL 33-37 RED CELL DISTRIBUTION WIDTH (test code=RDW) 13.8 % 11.6-16.2 PLATELET COUNT (test code=PLT) 317 K/mm3 130-400 MEAN PLATELET VOLUME (test code=MPV) 9.1 fl 7.4-10.4 NEUTROPHIL % (test code=NT%) 72.5 % 43-65 IMMATURE GRANULOCYTE % (test code=IG%) 0.6 % 0.0-2.0 LYMPHOCYTE % (test code=LY%) 14.4 % 20.5-45.5 MONOCYTE % (test code=MO%) 7.9 % 5.5-11.7 EOSINOPHIL % (test code=EO%) 3.9 % 0.9-2.9 BASOPHIL % (test code=BA%) 0.7 % 0.2-1.0 NUCLEATED RBC % (test code=NRBC%) 0.0 % 0-1.0 NEUTROPHIL # (test code=NT#) 6.82 K/mm3 2.2-4.8 LYMPHOCYTE # (test code=LY#) 1.36 K/mm3 1.3-2.9 MONOCYTE # (test code=MO#) 0.74 K/mm3 0.3-0.8 EOSINOPHIL # (test code=EO#) 0.37 K/MM3 0.0-0.2 BASOPHIL # (test code=BA#) 0.07 K/mm3 0.0-0.1 BNP [id number] 19:00:00* Test Item Value Reference Range Comments BNP RAPID (test code=BNPRAP) 18 pg/mL 0.0-100.0 TROPONIN I [id number] 18:59:00* Test Item Value Reference Range Comments TROPONIN I RAPID (test code=TROPIRAP) 0.00 ng/mL 0.00-0.08 ISTAT TROPONIN I CRITERIA0.00-0.08 ng/mL - Negative>0.08 ng/mL - Positive The use of serial sampling and testing protocol is arecommended practice.An elevated troponin level alone is often not sufficient fordiagnosis of myocardial infarction. Troponin results obtained by different assays may vary.Evaluation of the extent of myocardial damage based onincrease of troponin would be valid only if similarmethodology is used. CHEMISTRY 8 [id number] 18:53:00* Test Item Value Reference Range Comments SODIUM POC (test code=NAP) mmol/L 138-146 POTASSIUM POC (test code=KP) mmol/L 3.5-4.9 CHLORIDE POC (test code=CLP) mmol/L 98-109 CO2 POC (test code=CO2P) mmol/L 24-29 IONIZED CALCIUM POC (test code=CAIP) mmol/L 1.10-1.32 GLUCOSE POC (test code=GLUP) MG/DL 70-105 BUN POC (test code=BUNP) mg/dL 8-26 CREATININE POC (test code=CREATP) mg/dL 0.6-1.3 GLOMERULAR FILTRATION RATE POC (test code=GFRP) 115 49-113 CHEMISTRY 8 [id number] 18:53:00* Test Item Value Reference Range Comments SODIUM POC (test code=NAP) 142 mmol/L 138-146 POTASSIUM POC (test code=KP) 3.8 mmol/L 3.5-4.9 CHLORIDE POC (test code=CLP) 105 mmol/L 98-109 CO2 POC (test code=CO2P) 24 mmol/L 24-29 IONIZED CALCIUM POC (test code=CAIP) 1.17 mmol/L 1.10-1.32 GLUCOSE POC (test code=GLUP) 128 MG/DL 70-105 BUN POC (test code=BUNP) 11 mg/dL 8-26 CREATININE POC (test code=CREATP) 0.7 mg/dL 0.6-1.3 GLOMERULAR FILTRATION RATE POC (test code=GFRP) 115 49-113 - XR CHEST 1 [id number] 18:49:00Patient Name: FELECIA ASTORGA Unit No: [id number] EXAMS: CPT: [id number] XR CHEST 1 V 35815 CHEST 1 VIEW: COMPARISON: None CLINICAL HISTORY: Chest pain FINDINGS: There is poor inspiration which accentuate lung markings. The lung quintana are without infiltrate, pleural effusion, or pneumothorax. Heart size is with in normal limit. IMPRESSION: Hypoaeration. No acute finding identified. at 1849 Reported and signed by: Abdi Phillips MD CC: Lino Mishra MD Technologist: Jc Montalvo Fluoro Time: DAP (Gy m2): Air Kerma (mGy): Trscr Dt/Tm: 01/29/2019 (1848) by:Jennifer Orig Print D/T: S: 01/29/2019 (1851) BATCH NO: N/A Name: FELECIA ASTORGA [facility] [place] Phys: Lino Fleming MD [address] [facility] : 1960 Age: 58 Sex: [place] Loc: T.398 A Exam Date: 01/29/2019 Status: DIS IN PH: FAX: PAGE 1 Signed Report - XR CHEST 1 V 2019-01-29 18:49:00Patient Name: FELECIA ASTORGA Unit No: [id number] EXAMS: CPT: [id number] XR CHEST 1 V 99549 CHEST 1 VIEW: COMPARISON: None CLINICAL HISTORY: Chest pain FINDINGS: There is poor inspiration which accentuate lung markings. The lung quintana are without infiltrate, pleural effusion, or pneumothorax. Heart size is with in normal limit. IMPRESSION: Hypoaeration. No acute finding identified. at 1849 Reported and signed by: Abdi Phillips MD CC: Lino Mishra MD Technologist: Jc Montalvo Fluoro Time: DAP (Gy m2): Air Kerma (mGy): Trscr Dt/Tm: 01/29/2019 (1848) by:Jennifer Orig Print D/T: S: 01/29/2019 (1851) BATCH NO: N/A Name: FELECIA ASTORGA [facility] [place] Phys: Lino Fleming MD [address] [facility] : 1960 Age: 58 Sex: M [place] Loc: T.ERS Exam Date: 01/29/2019 Status: REG ER PH: FAX: PAGE 1 Signed Report [id number] 13:07:00* Test Item Value Reference Range Comments TROPONIN-I (test code=TROPI) < 0.02 ng/mL 0.00-0.07 [id number] 12:59:00* Test Item Value Reference Range Comments D-DIMER (test code=DDIMER) 664 ng/mLFEU 0-500 Note: New Reference RangeD-Dimer results are reported in ng/mL. These unitscorrespond to ng/mL Fibrinogen Equivalent Units (FEU). TheD-dimer cut-off value is the same as the normal referencerange.A negative D-dimer result when combined with a clinicalassessment of low pretest probability has been shown to havea high negative predictive value for deep vein thrombosis(DVT) and pulmonary embolism (PE). Elevated levels ofD-Dimer are found in clinical conditions such as DVT, PE,and disseminated intravascular coagulation (DIC). - DUP VEIN [id number] 11:25:00Patient Name: FELECIA ASTORGA Unit No: [id number] EXAMS: CPT CODE: [id number] [place] [address] Bilateral lower extremity venous Doppler ultrasound 01/27/2019 CLINICAL INDICATION: Edema COMPARISON: None available LOCATION: W1 TECHNIQUE: Grayscale, color Doppler, spectral wave form analysis of the deep venous system of the bilateral lower extremities was performed. FINDINGS: The common femoral, femoral, and popliteal veins are normally compressible and demonstrate normal spontaneous phasic wave forms. The visualized calf veins are patent. IMPRESSION: No evidence for deep venous thrombus in either lower extremity. at 1125 Reported and signed by: Vince Redmond CC: Self Referred; Viki Hubbard MD Technologist: Tyler Wadsworth Probe: Trscr Dt/Tm: 01/27/2019 (1125) by:Ana PaulaTS14 Electronic Signature Date/Time: 01/27/2019 (1125)Orig Print D/T: S: 01/27/2019 (1128) Name: FELECIA ASTORGA [facility] Phys: [place] [address] : 1960 Age: 58 [place]: [place] [address] Loc: NC.202 1 Exam Date: 01/27/2019 Status: ADM IN PH: FAX: PAGE 1 Signed Report TROPONIN-I 2019-01-27 07:06:00* Test Item Value Reference Range Comments TROPONIN-I (test code=TROPI) < 0.02 ng/mL 0.00-0.07 [id number] 01:00:00* Test Item Value Reference Range Comments TROPONIN-I (test code=TROPI) < 0.02 ng/mL 0.00-0.07 LIPID PROFILE (CORONARY RISK)2019-01-26 23:28:00* Test Item Value Reference Range Comments TRIGLYCERIDES (test code=TRIG) 73 mg/dL 0-149 CHOLESTEROL (test code=CHOL) 142 mg/dL 0-200 CHOLESTEROL/HDL RATIO (test code=CHOLHDL) 3 1-6 HDL CHOLESTEROL (test code=HDL) 52 mg/dL 40-60 LIPOPROTEIN LDL (test code=LDLC) 75 mg/dL 0-100 [id number] 23:28:00* Test Item Value Reference Range Comments MAGNESIUM (test code=MAG) 1.7 mg/dL 1.8-2.4 B-TYPE NATRIURETIC [id number] 22:14:00* Test Item Value Reference Range Comments B-TYPE NATRIURETIC PEPTIDE (test code=BNP) 4 pg/mL 0-100 BASIC METABOLIC [id number] 21:38:00* Test Item Value Reference Range Comments SODIUM (test code=NA) 142 mmol/L 135-145 POTASSIUM (test code=K) 4.1 mmol/L 3.5-5.1 CHLORIDE (test code=CL) 110 mmol/L 98-107 CARBON DIOXIDE (test code=CO2) 28 mmol/L 21-32 ANION GAP (test code=GAP) 8.1 2.0-16.0 GLUCOSE (test code=GLU) 104 mg/dL 65-99 BLOOD UREA NITROGEN (test code=BUN) 15 mg/dL 4-23 GLOMERULAR FILTRATION RATE (test code=GFR) >=60 max estimate ml/min 60-115 The estimated glomerular filtration rate is computed usingpatient race, age (>18), sex, and serum creatinine. If anyof the needed data elements are missing the Laboratory cannot compute an estimation of the glomerular filtration rate. CREATININE (test code=CREAT) 0.7 mg/dL 0.6-1.5 BUN/CREATININE RATIO (test code=BUN/CREA) 21.4 12.0-20.0 CALCIUM (test code=CA) 8.4 mg/dL 8.5-10.1 [id number] 21:38:00* Test Item Value Reference Range Comments TROPONIN-I (test code=TROPI) < 0.02 ng/mL 0.00-0.07 CBC W/AUTO [id number] 21:28:00* Test Item Value Reference Range Comments WHITE BLOOD CELL (test code=WBC) 7.5 10 3/uL 4.5-11.0 RED BLOOD CELL (test code=RBC) 3.64 10 6/uL 4.30-5.50 HEMOGLOBIN (test code=HGB) 10.7 g/dL 14.0-18.0 HEMATOCRIT (test code=HCT) 34.1 % 40.0-55.0 MEAN CELL VOLUME (test code=MCV) 94 fL 81-102 MEAN CELL HGB (test code=MCH) 29.4 pg 26.0-34.0 MEAN CELL HGB CONCENTRATION (test code=MCHC) 31.4 % 31.0-37.0 RED CELL DISTRIBUTION WIDTH (test code=RDW) 13.5 % 11.5-14.5 RED CELL DISTRIBUTION WIDTH SD (test code=RDW-SD) 46.4 fL 35.1-43.9 PLATELET COUNT (test code=PLT) 263 10 3/uL 150-400 MEAN PLATELET VOLUME (test code=MPV) 9.3 fl 9.0-12.6 NEUTROPHIL % (test code=NT%) 60.3 % 33.0-76.0 IMMATURE GRANULOCYTE % (test code=IG%) 0.7 % 0.0-1.0 LYMPHOCYTE % (test code=LY%) 16.1 % 14.0-56.4 MONOCYTE % (test code=MO%) 10.3 % 0.0-12.9 EOSINOPHIL % (test code=EO%) 11.5 % 0.0-7.0 BASOPHIL % (test code=BA%) 1.1 % 0-2.0 NUCLEATED RBC % (test code=NRBC%) 0.0 % 0-0.2 NEUTROPHIL # (test code=NT#) 4.54 10 3/uL 1.5-7.0 IMMATURE GRANULOCYTE # (test code=IG#) 0.050 x10 3/uL 0.000-0.100 LYMPHOCYTE # (test code=LY#) 1.21 10 3/uL 1.50-4.00 MONOCYTE # (test code=MO#) 0.77 10 3/uL 0.20-0.80 EOSINOPHIL # (test code=EO#) 0.86 10 3/uL 0.0-0.5 BASOPHIL # (test code=BA#) 0.08 10 3/uL 0.0-0.1 - XR CHEST 1 [id number] 21:20:00Patient Name: FELECIA ASTORGA Unit No: [id number] EXAMS: CPT CODE: [id number] XR CHEST 1 V 89801 CLINICAL HISTORY: Chest Pain. LOCATION: A1 FINDINGS: Comparison is made with a previous study dated February 05, 2018. A portable AP view of the chest is dated 01/26/2019 at 2049 hours. The cardiomediastinal silhouette is within normal limits. There are no infiltrates or pleural effusions. No significant skeletal or soft tissue abnormalities. IMPRESSION: 1. No acute disease. at 2119 Reported and signed by: Torsten Talavera MD CC: Jane Dominguez DO Technologist: John Cleaning; Jackson Levy Time: DAP (Gy m2): Air Kerma (mGy): Trscr Dt/Tm: 01/26/2019 (2119) by:Ana [email or web address] Electronic Signature Date/Time: 01/26/2019 (2119)Orig Print D/T: S: 01/26/2019 (2122) [facility] [place] [address] : 1960 Age: 58 [place]: [place] [id number] Loc: [place] Exam Date: 01/26/2019 Status: REG ER PH: FAX: PAGE 1 Signed Report - CTA CHEST FOR PE 2019-01-23 21:55:00 FAX: Karina River MD [phone] Portal: [facility]: [facility] FAX: Y Ap Carbajal MD [phone] Name: FELECIA ASTORGA [facility] : 1960 Age/S: 58/M [address] [facility] Unit: [id number] Loc: [address] Phys: [place] [id number] Acct: [id number] Dis Date: Status: ADM IN PHONE #: [phone] Exam Date: 01/23/20191924 FAX #: [phone] Reason: hemoptysis, pt reports history of pulmonary emb EXAMS: CPT CODE: [id number] [place] [address] HISTORY: Hemoptysis Location: C3 COMPARISON: None TECHNIQUE: Axial tomograms through the chest were obtained after intravenous contrast utilizing pulmonary CTA protocol. Multiplanar maximum intensity projection reformatted images are provided. One or more of the following dose reduction techniques were used: Automated exposure control, adjustment of the mA and/or kV according to patient size, and/or utilization of iterative reconstruction technique. FINDINGS: Aortic calcifications are present. Coronary calcifications are noted. Motion artifact limits evaluation. The pulmonary arteries demonstrate no gross filling defect to suggest pulmo nary embolus. There is no evidence of aortic aneurysm or dissection. There is no significant mediastinal or hilar adenopathy. No significant p leural effusion. No acute osseous abnormalities are demonstrated. Bi basilar atelectasis is demonstrated. IMPRESSION: 1. No evidence of pulmonary embolus. 2. Aortic and coronary calcific ations. No evidence of aortic aneurysm or dissection. Elect ronically Signed by Alaina Gonzalez on 01/23/2019 at 2155 Reported and signed by: Kayla Gonzalez M.D. CC: Karina River MD; Ap Carbajal MD Technologist: DEEPTHI Casas Dt/Tm: 01/23/2019 (2155) Ana [email or web address] Orig Print D/T: S: 01/23/2019 (6138 PAGE 1 Signed Report - XR CHEST 1 V 2019-01-23 12:58:00 FAX: Karina River MD [phone] Portal: St: ADM FAX: Rhiannon Weiss [phone] Name: FELECIA ASTORGA [facility] : 1960 Age/S: 58/M [address] [facility] Unit #: [id number] Loc: [address] Phys: [place] [address] Acct: [id number] Dis Date: Status: ADM IN PHONE #: [phone] Exam Date: 01/23/2019 1256 FAX #: [phone] Reason: FLU LIKE SYMPTOMS EXAMS: CPT CODE: [id number] XR CHEST 1 V 58703 EXAM: - XR CHEST 1 V LOCATION: C3 HISTORY: FLU LIKE SYMPTOMS COMPARISON: 01/23/19 FINDINGS: Single view of the chest. No indwelling lines or tubes. No pneumothorax. The lungs are clear without significant effusions. The mediastinal contours are unremarkable/unchanged. No acute osseous findings are present. IMPRESSION: No acute cardiopulmonary abnormality. at 3728 Reported and signed by: Alexi Botello M.D. CC: Karina River MD; Xiomara Ferrer MD Technologist: MORIAH ACEVEDO Trnmdrd Date/Time/By: 01/23/2019 (6550) : By: Ana PaulaHV2 PAGE 1 Signed Report FAX: Karina River MD [phone] Portal: EM St: ADM FAX: Rhiannon Weiss [phone] ------- Name: FELECIA ASTORGA [facility] : 1960 Age/S: 58/M [address] [facility] [facility] Unit #: [id number] Loc: [address] [place], [place]: [place] [address] Acct: [id number] Dis Date: Status: ADM IN PHON E #: [phone] Exam Date: 01/23/2019 1256 FAX # : [phone] Reason: FLU LIKE SYMPTOMS EX AMS: CPT CODE: [id number] XR C HEST 1 V 01053 <Continued> Orig Print D/T: S: 01/23/2019 (2665) PAGE 2 Signed Report [id number] 11:52:00* Test Item Value Reference Range Comments TROPONIN-I (test code=TROPI) <0.02 NG/ML 0.00-0.06 REFERENCE RANGE TROPONIN I HEALTHY INDIVIDUALS: <0.06 ng/mL R/O ISCHEMIA: 0.07 - 0.60 ng/mL CUT-OFF RANGE FOR AMI: 0.60 - 1.5 ng/mL [id number] 07:29:00* Test Item Value Reference Range Comments TROPONIN-I (test code=TROPI) <0.02 NG/ML 0.00-0.06 REFERENCE RANGE TROPONIN I HEALTHY INDIVIDUALS: <0.06 ng/mL R/O ISCHEMIA: 0.07 - 0.60 ng/mL CUT-OFF RANGE FOR AMI: 0.60 - 1.5 ng/mL - CT ABD PELVIS [id number] 00:17:00 FAX: Estela Chinchilla DO [phone] Portal: St: REG Name: WAYLON MARSHFELECIA ADAMES [facility] : [birth year] Age/S: 58/M [address] [facility] Unit: [id number] Loc: [address] [place], [place]: [place] [address] Acct: [id number] Dis Date: Status: REG ER PHONE #: [phone] Exam Date: 01/21/2019 0005 FAX #: [phone] Reason: Extensive abdominal bruising S/P fall. Equivoca EXAMS: CPT CODE: [id number] CT ABD PELVIS W/CONT 41702 EXAM: CT ABDOMEN AND PELVIS WITH IV CONTRAST DICTATION LOCATION: 8 HISTORY: Male, 58 years of age with extensive abdominal bruising S/P fall. Equivocal FAST TECHNIQUE: Contrast: Nonionic IV contrast was given. No GI contrast was given. Portal venous phase: Abdomen and pelvis Valery yed phase: None Reconstructions: Coronal and sagittal One o r more of the following dose reduction techniques were used: Automated exp osure control; adjustment of the mA and/or kV according to the patient siz e; and/or use of iterative reconstruction technique. COMPARISON: C T abdomen and pelvis without contrast performed 09/06/2017 FINDINGS : Statements: Exam quality is acceptable. Lower thorax: Unre markable. Hepatobiliary: The liver is normal without focal lesion. Status post cholecystectomy. No biliary dilation. Pancreas: Normal. Spleen: Normal. Adrenals: Normal. Genitourinary: 2 small nonobstructing calculi are seen in the upper right kidney. No other right or left renal or ureteral calculi. No hydron ephrosis or perinephric stranding. No evidence for renal injury. Urinary b ladder is unremarkable. The visualized reproductive organs are unremarkabl e. Gastrointestinal: No bowel obstruction or perienteric inflamma tion. The appendix is normal. No mesenteric hematoma. Vascul ar: No aortic aneurysm or dissection. IVC is unremarkable except for IVC f ilter in place. Portal vein is patent. PAGE 1 Signed Report (CONTINUED) FAX: Estela Chinchilla DO Portal: St: REG Name: FELECIA ASTORGA [facility] Main and : 1960 Age/S: 58/M [address] Unit: [id number] Loc: E.EXP [place], [place]: [place] [address] Acct: [id number] Dis Date: Status: REG ER PHONE #: [phone] Exam Date: 01/21/2019 0005 FAX #: [phone] Reason: Extensive abdominal bruising S/P fall. Equivoca EXAMS: CPT CODE: [id number] CT ABD PELVIS W/CONT 54298 < Continued> Lymphatics: No enlarged lymph nodes by CT size criteria. Bones/Soft Tissues: Soft tissue swelling and subcutaneous stranding seen in the left lower anterior abdominal wall consistent with contusion. No large subcutaneous hematoma. No central hernias. No acute fracture or dislocation in the visualized skeletal structures. DJD noted in the spine. Grade 1 anterolisthesis seen at L5 without spondylolysis. Peritoneum/Other: No free intraperitoneal air. No free intraperitoneal fluid. IMPRESSION: 1. Subcutaneous contusions in the left lower anterior abdominal wall. 2. No other acute posttraumatic findings in the abdomen or pelvis. 3. No free fluid or free air. 4. Right nephrolithiasis. at 0017 Reported and signed by: Spring Stratton M.D. CC: Chante Chinchilla DO Technologist: DEEPTHI Casas Dt/Tm: 01/22/2019 (0017) Mindy ArceCLW Orig Print D/T: S: 01/22/2019 (0021 PAGE 2 Signed Report BASIC METABOLIC [id number] 23:38:00* Test Item Value Reference Range Comments SODIUM (test code=NA) 142 mmol/l 134.0-147.0 POTASSIUM (test code=K) 3.9 mmol/L 3.6-5.2 CHLORIDE (test code=CL) 107 mmol/l 98.0-107.0 CARBON DIOXIDE (test code=CO2) 27.4 mmol/l 21.0-33.0 ANION GAP (test code=GAP) 11.5 0-20 GLUCOSE (test code=GLU) 86 mg/dl 70.0-110.0 BLOOD UREA NITROGEN (test code=BUN) 24 mg/dl 7.0-18.0 CREATININE (test code=CREAT) 0.60 mg/dL 0.60-1.30 GFR NON BLACK (test code=GFRNONBLACK) 146 mL/min 80-90 GFR BLACK (test code=GFRBLACK) 177 mL/min 97-109 CALCIUM (test code=CA) 8.3 mg/dl 8.0-10.5 [id number] 23:38:00* Test Item Value Reference Range Comments TROPONIN-I (test code=TROPI) <0.02 NG/ML 0.00-0.06 REFERENCE RANGE TROPONIN I HEALTHY INDIVIDUALS: <0.06 ng/mL R/O ISCHEMIA: 0.07 - 0.60 ng/mL CUT-OFF RANGE FOR AMI: 0.60 - 1.5 ng/mL BASIC METABOLIC [id number] 23:33:00* Test Item Value Reference Range Comments SODIUM (test code=NA) 142 mmol/l 134.0-147.0 POTASSIUM (test code=K) 3.9 mmol/L 3.6-5.2 CHLORIDE (test code=CL) 107 mmol/l 98.0-107.0 CARBON DIOXIDE (test code=CO2) 27.4 mmol/l 21.0-33.0 ANION GAP (test code=GAP) 11.5 0-20 GLUCOSE (test code=GLU) mg/dl 70.0-110.0 BLOOD UREA NITROGEN (test code=BUN) mg/dl 7.0-18.0 CREATININE (test code=CREAT) mg/dL 0.60-1.30 GFR NON BLACK (test code=GFRNONBLACK) mL/min 80-90 GFR BLACK (test code=GFRBLACK) mL/min 97-109 CALCIUM (test code=CA) mg/dl 8.0-10.5 [id number] 23:33:00* Test Item Value Reference Range Comments TROPONIN-I (test code=TROPI) NG/ML 0.00-0.06 CBC W/AUTO [id number] 23:23:00* Test Item Value Reference Range Comments WHITE BLOOD CELL (test code=WBC) 8.7 K/mm3 4.5-11.0 RED BLOOD CELL (test code=RBC) 3.76 M/mm3 4.40-5.90 HEMOGLOBIN (test code=HGB) 11.0 gm/dL 13.0-17.0 HEMATOCRIT (test code=HCT) 35.4 % 36.0-48.0 MEAN CELL VOLUME (test code=MCV) 94.1 UM3 80.0-94.0 MEAN CELL HGB (test code=MCH) 29.3 UUG 25.5-32.5 MEAN CELL HGB CONCETRATION (test code=MCHC) 31.1 gm/dL 29.0-35.5 RED CELL DISTRIBUTION WIDTH (test code=RDW) 13.6 % 11.5-15.0 RED CELL DISTRIBUTION WIDTH SD (test code=RDW-SD) 46.7 fL 34.8-50.2 PLATELET COUNT (test code=PLT) 200 K/mm3 150-400 MEAN PLATELET VOLUME (test code=MPV) 10.0 fl 7.4-10.4 NEUTROPHIL % (test code=NT%) 69.8 % 49.0-76.0 IMMATURE GRANULOCYTE % (test code=IG%) 0.2 % 0.0-0.4 LYMPHOCYTE % (test code=LY%) 15.3 % 23.0-38.0 MONOCYTE % (test code=MO%) 8.0 % 1.0-10.0 EOSINOPHIL % (test code=EO%) 6.0 % 1.0-5.0 BASOPHIL % (test code=BA%) 0.7 % 0.0-1.0 NEUTROPHIL # (test code=NT#) 6.1 K/mm3 2.4-6.3 IMMATURE GRANULOCYTE # (test code=IG#) 0.02 x10 3/uL 0.00-0.07 LYMPHOCYTE # (test code=LY#) 1.3 K/mm3 1.2-4.0 MONOCYTE # (test code=MO#) 0.7 K/mm3 0.0-0.6 EOSINOPHIL # (test code=EO#) 0.5 K/MM3 0.0-0.7 BASOPHIL # (test code=BA#) 0.1 K/mm3 0.0-0.2 URINALYSIS [id number] 23:16:00* Test Item Value Reference Range Comments UA COLOR (test code=COLU) DARK YELLOW UA APPEARANCE (test code=APPU) SLHZY UA GLUCOSE DIPSTICK (test code=DGLUU) NORMAL mg/dl NORMAL UA BILIRUBIN DIPSTICK (test code=BILU) NEGATIVE mg/dL NEGATIVE UA KETONE DIPSTICK (test code=KETU) 5 mg/dl mg/dl NEGATIVE UA SPECIFIC GRAVITY (test code=SGU) 1.020 1.000-1.030 UA BLOOD DIPSTICK (test code=GERALDINE) 250 Floyd/micL Floyd/micL NEGATIVE UA PH DIPSTICK (test code=SOFIA) 5.0 5.0-9.0 UA PROTEIN DIPSTICK (test code=PROU) 100 mg/dl NEGATIVE UA UROBILINIOGEN DIPSTICK (test code=URO) 1.0 mg/dl mg/dl NORMAL UA NITRITE DIPSTICK (test code=BRADEN) NEGATIVE NEGATIVE UA LEUKOCYTE ESTERASE DIPSTICK (test code=LEUU) 25 Pa/micL Pa/micL NEGATIVE UA WBC (test code=WBCU) 4-9 WBC/HPF NONE UA RBC (test code=RBCU) TNTC RBC/HPF 0-3 UA EPITHELIAL CELLS (test code=EPIU) 0-3 EPI/HPF 0-3 UA BACTERIA (test code=BACU) FEW NONE URINALYSIS [id number] 23:07:00* Test Item Value Reference Range Comments UA COLOR (test code=COLU) DARK YELLOW UA APPEARANCE (test code=APPU) SLHZY UA GLUCOSE DIPSTICK (test code=DGLUU) NORMAL mg/dl NORMAL UA BILIRUBIN DIPSTICK (test code=BILU) NEGATIVE mg/dL NEGATIVE UA KETONE DIPSTICK (test code=KETU) 5 mg/dl mg/dl NEGATIVE UA SPECIFIC GRAVITY (test code=SGU) 1.020 1.000-1.030 UA BLOOD DIPSTICK (test code=GERALDINE) 250 Floyd/micL Floyd/micL NEGATIVE UA PH DIPSTICK (test code=SOFIA) 5.0 5.0-9.0 UA PROTEIN DIPSTICK (test code=PROU) 100 mg/dl NEGATIVE UA UROBILINIOGEN DIPSTICK (test code=URO) 1.0 mg/dl mg/dl NORMAL UA NITRITE DIPSTICK (test code=BRADEN) NEGATIVE NEGATIVE UA LEUKOCYTE ESTERASE DIPSTICK (test code=LEUU) 25 Pa/micL Pa/micL NEGATIVE UA WBC (test code=WBCU) WBC/HPF NONE UA RBC (test code=RBCU) RBC/HPF 0-3 UA EPITHELIAL CELLS (test code=EPIU) EPI/HPF 0-3 UA BACTERIA (test code=BACU) NONE - CT HEAD/BRAIN W/O [id number] 22:27:00 FAX: Estela Chinchilla DO [phone] Portal: St: REG Name: FELECIA SONG [facility] : [birth year] Age/S: 58/M [address] Unit: [id number] Loc: E.EXP [place], [place] Phys: Estela Chinchilla [address] Acct: [id number] Dis Date: Status: REG ER PHONE #: [phone] Exam Date: 01/21/2019 222 FAX #: [phone] Reason: Fell 2 days ago and passed out EXAMS: CPT CODE: [id number] CT HEAD/BRAIN W/O CONT 91464 EXAM: - CT HEAD/BRAIN W/O CONT HISTORY: Fall. Passed out. TECHNIQUE: Axial tomograms through the brain were obtained without intravenous contrast. This e xam was performed according to our departmental dose-optimization program, which includes automated exposure control, adjustment of the mA and/or kV according to patient size and/or use of iterative reconstruction techniqu e. COMPARISON: 01/19/2019. FINDINGS: T here is no intracranial hemorrhage, mass, or mass effect. The ventricular system and sulci are age-appropriate. The osseous structures and o rbits, show no significant abnormalities. The visualized sinuses are rela tively clear. The soft tissues are unremarkable. There is n o significant change compared to previous exam. Evaluation limited due to motion artifact. IMPRESSION: No acute intracranial abnormality with no evidence of intracranial hemorrhage. at 6681 Reported and signed by: Umer Loya M.D. CC: Estela Chinchilla DO Technologist: JUSTYN Casas Dt/Tm: 01/21/2019 (5106) [email or web address] Orig Print D/T: S: 01/21/2019 (3958 PAGE 1 Signed Report - XR CHEST 1 V 2019-01-21 22:02:00 FAX: Estela Chinchilla DO [phone] Portal: St: PRE Name: Jim HENLEYFELECIA [facility] : [birth year] Age/S: 58/M [address] [facility] Unit #: [id number] Loc: E.EXP [place], [place]: [place] [address] Acct: [id number] Dis Date: Status: PRE ER PHONE #: [phone] Exam Date: 01/21/2019 220 FAX #: [phone] Reason: SOB EXAMS: CPT CODE: [id number] XR CHEST 1 V 86364 AFTER HOURS SERVICE ON: 01/21/2019 10:02 PM AP Portable Chest Location Code M12 HISTORY: SOB FINDINGS: There are no infiltra olvin. There are no pleural effusions. There is no pneumothorax. Cardiac agustin houette and mediastinum appear within normal limits. IMPR ESSION: No active pulmonary findings. Cami ctronically Signed by Alaina Kelly on 02/2018 at 2202 Reported and signed by: Caty Kelly M.D. CC: Estela Chinchilla DO Technologist: SELINA Casas Date/Time/By: 01/21/2019 (2201) : By: Ana PaulaMA50 PAGE 1 Signed Report FAX: Estela Chinchilla DO [phone] Portal: St: PRE Name: Zackary ASTORGA [facility] : 1960 Age /S: 58/M [address] [facility] [address] Unit #: [id number] Loc: E.EXP [place], [place] Phys: Estela Chinchilla [address] Acct: [id number] Dis Date: Status: PRE ER PHONE #: [phone] Exam Date: 01/21/20192199 FAX #: [phone] Reason: SOB EXAMS: CPT CODE: [id number] XR CHEST 1 V 78498 <Continued> Orig Print D/T: S: 01/21/2019 (1352) PAGE 2 Signed Report [id number] 01:29:00* Test Item Value Reference Range Comments D-DIMER (test code=DDIMER) 478 ng/mlFEU <=500 THROMBOSIS AND/OR PULMONARY EMBOLISM AND THE CLINICAL CUT- OFF VALUE FOR EXCLUSION (500 ng/mL FEU) OF THESE CONDITIONSIS VALIDATED BY THE LABOR ARBITRATOR HEARING OFFICE OF THE METHOD. A NEGATIVE D-DIMER RESULT WHEN COMBINED WITH A CLINICALASSESSMENT OF LOW PRETEST PROBABILITY HAS BEEN SHOWN TO HAVEA HIGH NEGATIVE PREDICTIVE VALUE OF DVT OR PE. D-DIMER VALUES >500 ng/mL FEU ARE NOT DIAGNOSTIC FOR DVT, PEor DIC WITHOUT OTHER CONFIRMATORY TESTS AND APPROPRIATECLINICAL EUALUATIONS. B-TYPE NATRIURETIC [id number] 00:59:00* Test Item Value Reference Range Comments B-TYPE NATRIURETIC PEPTIDE (test code=BNP) 47.6 PG/ML 0-100 BASIC METABOLIC [id number] 00:51:00* Test Item Value Reference Range Comments SODIUM (test code=NA) 139 mEq/L 134-147 POTASSIUM (test code=K) 4.0 mEq/L 3.4-5.0 CHLORIDE (test code=CL) 110 mEq/L 100-108 CARBON DIOXIDE (test code=CO2) 26 mEq/L 21-33 ANION GAP (test code=GAP) 7 0-20 GLUCOSE (test code=GLU) 94 mg/dL 70-110 BLOOD UREA NITROGEN (test code=BUN) 19 mg/dL 7-18 GLOMERULAR FILTRATION RATE (test code=GFR) 115.0 80-90 Units of measure=ml/min/1.73 m2 CREATININE (test code=CREAT) 0.7 mg/dL 0.6-1.3 CALCIUM (test code=CA) 8.4 mg/dL 8.0-10.5 HEPATIC FUNCTION [id number] 00:51:00* Test Item Value Reference Range Comments TOTAL PROTEIN (test code=PROT) 6.9 g/dL 6.4-8.2 ALBUMIN (test code=ALB) 3.30 g/dL 3.4-5.0 BILIRUBIN TOTAL (test code=BILT) 0.3 MG/DL <1.5 BILIRUBIN DIRECT (test code=BILD) < 0.10 MG/DL 0.0-0.30 BILIRUBIN INDIRECT (test code=BILIND) 0.20 MG/DL SGOT/AST (test code=AST) 20 IUnit/L 15-37 SGPT/ALT (test code=ALT) 17 IUnit/L 15-65 ALKALINE PHOSPHATASE TOTAL (test code=ALKP) 67 IUnit/L 20-125 [id number] 00:51:00* Test Item Value Reference Range Comments LIPASE (test code=LIP) 158 IUnit/L 73-393 [id number] 00:51:00* Test Item Value Reference Range Comments TROPONIN-I (test code=TROPI) < 0.015 ng/mL 0.000-0.045 Negative: <=0.045 Positive: >=0.046 Correlation with serial results, other cardiac markers andclinical findings is necessary to determine the clinicalsignificance of this result. Results using different methodologies should not be comparedto one another as quantitative results may vary by method. - XR CHEST 1 [id number] 00:36:00 FAX: Cesar Little MD [phone] Portal: St: REG Name: Jim HENLEYFELECIA [facility] : [birth year] Age/S: 58/M [address] [place] [address] Blvd Unit #: [id number] Loc: G.[address] [place] [address] Phys: Cesar Little MD Acct: [id number] Dis Date: Status: REG ER PHONE #: [phone] Exam Date: 01/20/2019 0026 FAX #: [phone] Reason: Chest Pain EXAMS: CPT CODE: [id number] XR CHEST 1 V 29106 Chest, single view dated 01/20/2019. HISTORY: Chest pain. Syncope. Comparison is made to a prior study dated 04/02/2018. The heart is normal in size. The cardiomediastinal shadow appears within normal limits. The lungs appear clear. The pulmonary vasculature is normal in caliber. No acute pleural space abnormalities are detected. IMPRESSION: 1. No radiographic evidence of acute cardiopulmonary disease. SL: 131 at 0036 Reported and signed by: Smooth White M.D. CC: Cesar Little MD Technologist: RT Jaelyn(R) Trnmdrd Date/Time/By: 01/20/2019 (0036) : By: Ana PaulaDMM Orig Print D/T: S: 01/20/2019 (0039) PAGE 1 Signed Report CBC W/AUTO [id number] 00:33:00* Test Item Value Reference Range Comments WHITE BLOOD CELL (test code=WBC) 8.39 x10 3/uL 4.5-11.0 RED BLOOD CELL (test code=RBC) 3.78 x10 6/uL 4.00-5.60 HEMOGLOBIN (test code=HGB) 11.3 g/dL 12.5-16.9 HEMATOCRIT (test code=HCT) 34.9 % 37.5-50.7 MEAN CELL VOLUME (test code=MCV) 92.3 fL 81.0-99.0 MEAN CELL HGB (test code=MCH) 29.9 pg 27.0-33.0 MEAN CELL HGB CONCETRATION (test code=MCHC) 32.4 g/dL 33.0-37.0 RED CELL DISTRIBUTION WIDTH CV (test code=RDW) 13.4 % 11.5-14.5 RED CELL DISTRIBUTION WIDTH SD (test code=RDW-SD) 45.8 fL 37.0-54.0 PLATELET COUNT (test code=PLT) 211 x10 3/uL 150-400 MEAN PLATELET VOLUME (test code=MPV) 9.9 fL 7.0-9.0 NEUTROPHIL % (test code=NT%) 66.8 % 56.0-77.0 IMMATURE GRANULOCYTE % (test code=IG%) 0.4 % 0.0-2.0 LYMPHOCYTE % (test code=LY%) 17.9 % 14.0-32.0 MONOCYTE % (test code=MO%) 8.6 % 4.8-9.0 EOSINOPHIL % (test code=EO%) 5.5 % 0.3-3.7 BASOPHIL % (test code=BA%) 0.8 % 0.0-2.0 NUCLEATED RBC % (test code=NRBC%) 0.0 % 0-0 NEUTROPHIL # (test code=NT#) 5.61 x10 3/uL 2.0-7.6 IMMATURE GRANULOCYTE # (test code=IG#) 0.03 x10 3/uL 0.00-0.03 LYMPHOCYTE # (test code=LY#) 1.50 x10 3/uL 1.0-3.8 MONOCYTE # (test code=MO#) 0.72 x10 3/uL 0.1-0.8 EOSINOPHIL # (test code=EO#) 0.46 x10 3/uL 0.0-0.2 BASOPHIL # (test code=BA#) 0.07 x10 3/uL 0.0-0.2 NUCLEATED RBC # (test code=NRBC#) 0.00 x10 3/uL 0.0-0.1 MANUAL DIFF REQUIRED (test code=MDIFF) NO - CT HEAD/BRAIN W/O [id number] 00:10:00 Name: FELECIA ASTORGA [facility] : 1960 Age/S: 58 / M [address] [place] [address] Unit #: [id number] Loc: [place] [address] Phys: Cesar Little MD Acct: [id number] Dis Date: Status: REG ER PHONE #: [phone] Exam Date: 01/19/2019 2347 FAX #: [phone] Reason: fall, recurrent syncope, head abrasions EXAMS: CPT CODE: [id number] CT HEAD/BRAIN W/O CONT 93126 PROCEDURE: CT HEAD WITHOUT CONTRAST DATED 01/19/2019. INDICATION: Syncope and fall. COMPARISON: CT head dated 05/31/2016. A CT of the head was performed using thin slice noncontrast axial images with subsequent sagit gianni and coronal reconstruction. CT imaging performed at this [facility] ion utilizes radiation dose optimization techniques which include one or m ore of the followin) Automated exposure control; 2) Adjustment of mA a nd/or kV; 3) Use of iterative reconstructive technique. CT radiation dose DLP (mGy-cm): 419. FINDINGS: Examination of t he intracranial structures reveals no acute abnormal areas of increased or decreased density. Marr-white differentiation appears preserved. The vent ricular system is normal in size and configuration without midline shift. No intra or extra-axial masses or fluid collections are identified. There is no CT evidence of acute intracranial hemorrhage. No acute CT abnormalit ies of the calvarium are detected. The included portions of the paranasal sinuses and mastoid air cells appear clear of acute disease. IMPRESSION: 1. No acute intracranial abnormalities are detected. There is no CT evidence of acute intracranial ischemia, acute intracranial h emorrhage or intracranial mass. SL: 131 at 0010 Reported and signed by: Smooth White M.D. PAGE 1 Signed Report (CONTINUED) Name: FELECIA ASTORGA [facility] : 1960 Age/S: 58 / M [address] [place] [address] Blvd Unit #: [id number] Loc: [place] [address] Phys: Cesar Little MD Acct: [id number] Dis Date: Status: REG ER PHONE #: [phone] Exam Date: 01/19/2019 2347 FAX #: [phone] Reason: f all, recurrent syncope, head abrasions EXAMS: CPT CODE: [id number] CT HEAD/BRAIN W/O CONT 45101 <Continued> CC: Cesar Little MD Technologist:Livia Long RT(R)(CT) CTDI: DLP: Trnscb Date/Time: 01/20/2019 (0010) [email or web address] Orig Print D/T: S: 01/20/2019 (0013) PAGE [address] HEAD W/O [id number] 17:35:24Exam: CT head without contrast.Location: H 12History: [id number]: Traumatic injuryTechnique: Unenhanced spiral slices were taken from the base of the skull,through the vertex. One or more of the following radiation dose reductiontechniques was used: automated exposure control, adjustment of mA and/or KVaccording to patient size, and/or utilization of iterative reconstructiontechnique.Findings:No acute intracranial abnormality is identified. The brain parenchyma and theCSF spaces are unremarkable. No mass, midline shift, hemorrhage, hydrocephalusor edema is seen. The visualized paranasal sinuses are clear. The mastoid aircells are well pneumatized. The bony calvarium is intact.Impression:1. No acute intracranial abnormality.2. Otherwise unremarkable exam.TROPONIN [id number] 13:04:00* Test Item Value Reference Range Comments TROPONIN I (BEAKER) (test ojvt=321) < ng/mL 0.00-0.15 Troponin I (TnI) levels must be interpreted in the context of the presenting sym ptoms and the clinical findings. Elevated TnI levels indicate myocardial damage, but are not specific for ischemic heart disease. Elevated TnI levels are seen in patients with other cardiac conditions (including myocarditis and congestive h eart failure), and slight TnI elevations occur in patients with other conditions , including sepsis, renal failure, acidosis, acute neurological disease, and per sistent tachyarrhythmia.POCT-GLUCOSE [id number] 10:44:00* Test Item Value Reference Range Comments POC-GLUCOSE METER ([employer]) (test ibql=8156) 101 mg/dL 70-110 : TESTED AT [facility] [id number] [facility] [id number]: Forestry Fore[employer] Data [employer] [id number] for Jamia Ling TROPONIN [id number] 05:59:00* Test Item Value Reference Range Comments TROPONIN I ([employer]) (test ybja=253) < ng/mL 0.00-0.15 Troponin I (TnI) levels must be interpreted in the context of the presenting sym ptoms and the clinical findings. Elevated TnI levels indicate myocardial damage, but are not specific for ischemic heart disease. Elevated TnI levels are seen in patients with other cardiac conditions (including myocarditis and congestive h eart failure), and slight TnI elevations occur in patients with other conditions , including sepsis, renal failure, acidosis, acute neurological disease, and per sistent tachyarrhythmia.LIPID [id number] 05:50:00* Test Item Value Reference Range Comments TRIGLYCERIDES ([employer]) (test mvxv=260) 108 mg/dL CHOLESTEROL ([employer]) (test poyk=035) 186 mg/dL HDL CHOLESTEROL ([employer]) (test whkf=694) 32 mg/dL LDL CHOLESTEROL CALCULATED ([employer]) (test iddy=501) 132 mg/dL Triglyceride Reference Range: Low Risk <150 Borderline 150-199 High Risk 200-499 Very High Risk >=500Cholesterol Reference Range: Low Risk <200 Borderline 200-239 High Risk >240HDL Cholesterol Reference Range: Low Risk >=60 High Risk <40LDL Cholesterol Reference Range: Optimal <100 Near Optimal 100-129 Borderline 130-159 High 160-189 Very High >=190 HEMOGLOBIN [id number] 05:48:00* Test Item Value Reference Range Comments HEMOGLOBIN A1C (BEAKER) (test wuad=195) 5.8 % 4.3-6.1 POCT-GLUCOSE [id number] 05:43:00* Test Item Value Reference Range Comments POC-GLUCOSE METER (BEAKER) (test enlx=9149) 115 mg/dL 70-110 : TESTED AT [facility] [address] [facility] [address]: Forestry Foreman/Big Data Solutions Architect MX=[phone] for Teresa Mckeon, CHEST, 1 VIEW, NON [id number] 01:01:00Reason for exam:->CHEST PAINShould this be performed at the bedside?->YesFINAL REPORT History: Chest pain. Comparison: 04/10/2018 Findings: A single view of the chest is submitted. The cardiomediastinal contours are unremarkable. There is no focal consolidation, pneumothorax, large pleural effusion or evidence of overt pulmonary edema. There is no acute bony abnormality. Impression: No acute abnormality. Signed: Maegan Lyons MDReport Verified Date/Time: 01/16/2019 01:01:16 D DRUG SCREEN, [id number] 10:42:00* Test Item Value Reference Range Comments BARBITURATE URINE (BEAKER) (test lwcd=955) Negative Negative BENZODIAZEPINE SCREEN URINE (BEAKER) (test fdmb=167) Negative Negative COCAINE (METAB.) SCREEN (BEAKER) (test cozc=7066) Negative Negative METHADONE SCREEN (BEAKER) (test beuc=9167) Negative Negative OPIATE SCREEN URINE (BEAKER) (test swyv=462) Negative Negative CANNABINOID SCREEN URINE (BEAKER) (test rrvl=842) Negative Negative AMPH/METHAMPH SCREEN (BEAKER) (test gyyk=2243) Negative Negative PHENCYCLIDINE SCREEN URINE (BEAKER) (test kbgb=251) Negative Negative DRUG CUTOFF CONC.Cocaine 300 ng/mL Cannabinoid 50 ng/mLBenzodiazepine 200 ng/mLBarbiturate 200 ng/mLPh encyclidine 25 ng/mLOpiate 300 ng/mLMethadone 300 ng/mLAmphetamine/ 1000 ng/mL MethamphetamineThis assay provides an unconfirmed qualitative test result for the clinical management of patients in emergency situations. Chain of custody not maintained. Some jcsc-vaf-tzknddp me dications, as well as adulterants, may cause inaccurate results. Clinical correl ation should be applied. A more comprehensive drug screen or confirmation of a d etected drug may be performed upon request.POCT-GLUCOSE [id number] 08:59:00 * Test Item Value Reference Range Comments POC-GLUCOSE METER (RUPERT) (test ghhb=3037) 139 mg/dL 70-[address] [facility] [address] [facility] [address] TROPONIN [id number] 19:29:00* Test Item Value Reference Range Comments TROPONIN I (RUPERT) (test fniv=462) 0.02 ng/mL 0.00-0.15 Troponin I (TnI) levels must be interpreted in the context of the presenting sym ptoms and the clinical findings. Elevated TnI levels indicate myocardial damage, but are not specific for ischemic heart disease. Elevated TnI levels are seen in patients with other cardiac conditions (including myocarditis and congestive h eart failure), and slight TnI elevations occur in patients with other conditions , including sepsis, renal failure, acidosis, acute neurological disease, and per sistent tachyarrhythmia.TROPONIN [id number] 13:50:00* Test Item Value Reference Range Comments TROPONIN I (RUPERT) (test kvnr=163) < ng/mL 0.00-0.15 Troponin I (TnI) levels must be interpreted in the context of the presenting sym ptoms and the clinical findings. Elevated TnI levels indicate myocardial damage, but are not specific for ischemic heart disease. Elevated TnI levels are seen in patients with other cardiac conditions (including myocarditis and congestive h eart failure), and slight TnI elevations occur in patients with other conditions , including sepsis, renal failure, acidosis, acute neurological disease, and per sistent tachyarrhythmia.B-TYPE NATRIURETIC FACTOR (BNP)2018-04-10 13:49:00* Test Item Value Reference Range Comments B-TYPE NATRIURETIC PEPTIDE (RUPERT) (test mazu=991) 56 pg/mL 0-100 RAD, CHEST, 2 [id number] 13:44:00Reason for exam:->CHEST PAINFINAL REPORT History provided: Chest pain Comparison exam: 01/22/2018 CHEST PA AND LATERAL: Normal cardiomediastinal silhouette. Lungs are fully expanded and clear. CONCLUSION: Normal two-view chest examination. Signed: Damion Goldberg Verified Date/Time: 04/10/2018 13:44:56 Reading Location: [facility] Diagnostic Imaging Reading Room - [place] [address].12 C METABOLIC [id number] 13:43:00* Test Item Value Reference Range Comments SODIUM (BEAKER) (test yfgi=680) 145 meq/L 135-148 POTASSIUM (BEAKER) (test xdbw=542) 4.4 meq/L 3.5-5.5 Specimen slightly hemolyzed CHLORIDE (BEAKER) (test qdtk=884) 111 meq/L 98-106 CO2 (BEAKER) (test jpge=307) 20 meq/L 20-31 BLOOD UREA NITROGEN (BEAKER) (test iizz=179) 22 mg/dL 10-26 CREATININE (BEAKER) (test xeej=605) 0.82 mg/dL 0.50-1.20 Specimen slightly hemolyzed GLUCOSE RANDOM (BEAKER) (test wuum=484) 133 mg/dL 70-110 CALCIUM (BEAKER) (test urys=649) 8.6 mg/dL 8.5-10.5 EGFR (BEAKER) (test dehh=0517) 96 mL/min/1.73 sq m ESTIMATED GFR IS NOT ACCURATE CREATININE CLEARANCE IN PREDICTING GLOMERULAR FILTRATION RATE. ESTIMATED GFR IS NOT APPLICABLE FOR DIALYSIS PATIENTS. CBC W/PLT COUNT & AUTO [id number] 13:26:00* Test Item Value Reference Range Comments WHITE BLOOD CELL COUNT (BEAKER) (test tuey=581) 8.2 K/ L 4.0-10.0 RED BLOOD CELL COUNT (BEAKER) (test hrns=921) 3.68 M/ L 4.20-5.80 HEMOGLOBIN (BEAKER) (test mqkm=639) 9.1 GM/DL 13.0-16.8 HEMATOCRIT (BEAKER) (test dpbq=003) 29.7 % 36.0-50.0 MEAN CORPUSCULAR VOLUME (BEAKER) (test xmjb=666) 80.7 fL 82.0-99.0 MEAN CORPUSCULAR HEMOGLOBIN (BEAKER) (test bvbv=723) 24.7 pg 27.0-33.0 MEAN CORPUSCULAR HEMOGLOBIN CONC (BEAKER) (test jlhp=876) 30.6 GM/DL 32.0-36.0 RED CELL DISTRIBUTION WIDTH (BEAKER) (test dnyl=969) 17.0 % 12.0-15.0 PLATELET COUNT (BEAKER) (test tpay=282) 267 K/CU MM 150-430 MEAN PLATELET VOLUME (BEAKER) (test zwrk=812) 9.1 fL 6.0-11.5 MPV-Approximately 20% positive bias due to method change. NUCLEATED RED BLOOD CELLS (BEAKER) (test bxng=122) 0 /100 WBC 0-0 NEUTROPHILS RELATIVE PERCENT (BEAKER) (test smrx=622) 70 % LYMPHOCYTES RELATIVE PERCENT (BEAKER) (test fikm=799) 15 % MONOCYTES RELATIVE PERCENT (BEAKER) (test cllr=722) 10 % EOSINOPHILS RELATIVE PERCENT (BEAKER) (test ugcv=041) 5 % BASOPHILS RELATIVE PERCENT (BEAKER) (test gicm=049) 1 % NEUTROPHILS ABSOLUTE COUNT (BEAKER) (test hwbs=692) 5.66 K/ L 1.80-8.00 LYMPHOCYTES ABSOLUTE COUNT (BEAKER) (test ittf=852) 1.18 K/ L 1.48-4.50 MONOCYTES ABSOLUTE COUNT (BEAKER) (test dohd=216) 0.79 K/ L 0.00-1.30 EOSINOPHILS ABSOLUTE COUNT (BEAKER) (test vkaa=378) 0.40 K/ L 0.00-0.50 BASOPHILS ABSOLUTE COUNT (BEAKER) (test okyr=851) 0.06 K/ L 0.00-0.20 IMMATURE GRANULOCYTES-RELATIVE PERCENT (BEAKER) (test evsj=0080) 1 % 0-0 CREATININE W ESTIMATED [id number] 08:33:00* Test Item Value Reference Range Comments ESTIMATED CREATININE CLEARANCE (test code=CREATCLEST) 147.29 est CRCL 85.0-125.0 The estimated creatinine clearance is computed using patientweight, age, sex, and serum creatinine. Estimated creatinineclearance units=ml/min. If any of the needed dataelements are missing the Laboratory can not compute anestimation of the creatinine clearance.--- DRUG DOSAGE ALERT --- Drug dosage adjustments utilize different calculationparameters. GLOMERULAR FILTRATION RATE (test code=GFR) 79 estGFR >60 The estimated glomerular filtration rate is computed usingpatient race, age, sex, and serum creatinine. If any of theneeded data elements are missing the Laboratory can notcompute an estimation of the glomerular filtration rate.The GFR value units=ml/min/1.73 meter squared. EstimatedGFR values above 60 should be interpreted as >60, not anexact number.--- DRUG DOSAGE ALERT --- Drug dosage adjustments utilize different calculationparameters. CREATININE (test code=CREAT) 0.97 MG/DL 0.55-1.30 Results may be depressed if patient is takingN-Acetylcysteine (NAC) and Metamizole (Dipyrone). INDEX HEMOLYSIS (test code=HEMINDEX) 5 MOD 200-300 MG Index/DL 1 NORMAL INDEX ICTERIC (test code=ICTINDEX) 1 NORMAL <2 MG Index/DL 1 NORMAL INDEX LIPEMIA (test code=LIPINDEX) 1 NORMAL <50 MG Index/DL 1 NORMAL Is this a LINE draw? NGLUCOSE BEDSIDE [id number] 08:28:00* Test Item Value Reference Range Comments GLUCOSE BEDSIDE TESTING (test code=GLUBED) 180 MG/DL 70-119 GLUCOSE BEDSIDE [id number] 20:29:00* Test Item Value Reference Range Comments GLUCOSE BEDSIDE TESTING (test code=GLUBED) 117 MG/DL 70-119 GLUCOSE BEDSIDE [id number] 16:29:00* Test Item Value Reference Range Comments GLUCOSE BEDSIDE TESTING (test code=GLUBED) 146 MG/DL 70-119 GLUCOSE BEDSIDE [id number] 12:11:00* Test Item Value Reference Range Comments GLUCOSE BEDSIDE TESTING (test code=GLUBED) 180 MG/DL 70-119 GLUCOSE BEDSIDE [id number] 07:48:00* Test Item Value Reference Range Comments GLUCOSE BEDSIDE TESTING (test code=GLUBED) 128 MG/DL 70-119 GLUCOSE BEDSIDE [id number] 17:01:00* Test Item Value Reference Range Comments GLUCOSE BEDSIDE TESTING (test code=GLUBED) 141 MG/DL 70-119 GLUCOSE BEDSIDE [id number] 12:04:00* Test Item Value Reference Range Comments GLUCOSE BEDSIDE TESTING (test code=GLUBED) 117 MG/DL 70-119 GLUCOSE BEDSIDE [id number] 08:16:00* Test Item Value Reference Range Comments GLUCOSE BEDSIDE TESTING (test code=GLUBED) 140 MG/DL 70-119 GLUCOSE BEDSIDE [id number] 02:12:00* Test Item Value Reference Range Comments GLUCOSE BEDSIDE TESTING (test code=GLUBED) 131 MG/DL 70-119 GLUCOSE BEDSIDE [id number] 17:34:00* Test Item Value Reference Range Comments GLUCOSE BEDSIDE TESTING (test code=GLUBED) 111 MG/DL 70-119 GLUCOSE BEDSIDE [id number] 12:07:00* Test Item Value Reference Range Comments GLUCOSE BEDSIDE TESTING (test code=GLUBED) 108 MG/DL 70-119 GLUCOSE BEDSIDE [id number] 08:48:00* Test Item Value Reference Range Comments GLUCOSE BEDSIDE TESTING (test code=GLUBED) 187 MG/DL 70-119 GLUCOSE BEDSIDE [id number] 21:23:00* Test Item Value Reference Range Comments GLUCOSE BEDSIDE TESTING (test code=GLUBED) 165 MG/DL 70-119 GLUCOSE BEDSIDE [id number] 17:07:00* Test Item Value Reference Range Comments GLUCOSE BEDSIDE TESTING (test code=GLUBED) 137 MG/DL 70-119 GLUCOSE BEDSIDE [id number] 12:01:00* Test Item Value Reference Range Comments GLUCOSE BEDSIDE TESTING (test code=GLUBED) 165 MG/DL 70-119 GLUCOSE BEDSIDE [id number] 10:02:00* Test Item Value Reference Range Comments GLUCOSE BEDSIDE TESTING (test code=GLUBED) 141 MG/DL 70-119 GLUCOSE BEDSIDE [id number] 17:27:00* Test Item Value Reference Range Comments GLUCOSE BEDSIDE TESTING (test code=GLUBED) 169 MG/DL 70-119 Notified Nurse~ GLUCOSE BEDSIDE [id number] 12:21:00* Test Item Value Reference Range Comments GLUCOSE BEDSIDE TESTING (test code=GLUBED) 137 MG/DL 70-119 Notified Nurse~ DRUGS OF ABUSE SCREEN [id number] 09:20:00* Test Item Value Reference Range Comments URN COCAINE (test code=COCAURN) NONE DETECTED (NEG) SCcutoff <300 NG/ML URN CANNABINOIDS (test code=CANNABURN) NONE DETECTED (NEG) SCcutoff <50 NG/ML URN AMPHETAMINE (test code=AMPHETURN) NONE DETECTED (NEG) SCcutoff <1000 NG/ML URN BARBITURATE (test code=BARBITURN) NONE DETECTED (NEG) SCcutoff <200 NG/ML URN BENZODIAZEPINE (test code=BENZOURN) NONE DETECTED (NEG) SCcutoff <200 NG/ML URN OPIATES (test code=OPIATURN) POSITIVE SCcutoff <300 NG/ML URN PHENCYCLIDINE (PCP) (test code=PHENCURN) NONE DETECTED (NEG) SCcutoff <25 NG/ML ------ For all drug screen analytes ------The screen method provides only a preliminary analyticaltest result. A more specific alternate chemical method mustbe used in order to obtain a confirmed analytical result.Gas chromatography/mass spectrometry (GC/MS) is thepreferred confirmatory method. Other chemical confirmationmethods are available. Clinical consideration andprofessional judgement should be applied to any drug ofabuse test result, particularly when preliminary positiveresults are used. GLUCOSE BEDSIDE [id number] 08:24:00* Test Item Value Reference Range Comments GLUCOSE BEDSIDE TESTING (test code=GLUBED) 154 MG/DL 70-119 Notified Nurse~ GLUCOSE BEDSIDE [id number] 21:28:00* Test Item Value Reference Range Comments GLUCOSE BEDSIDE TESTING (test code=GLUBED) 200 MG/DL 70-119 - MRI LOW EXT W/O CONT [id number] 20:45:00 FAX: Serafin Cavazos MD Portal: O St: ADM FAX: Zachary Grayson MD [phone] Patient Name: FELECIA ASTORGA Unit No: [id number] EXAMS: CPT CODE: [id number] MRI LOW EXT W/[place] [address] Site ID: [id number] HISTORY: Rule out osteomyelitis COMPARISON: None TECHNIQUE: Multiplanar, multisequence MRI of the left midfoot was performed without intravenous contrast FINDINGS: Mild generalized subcutaneous edema dorsally within the midfoot. No organized abscess or soft tissue collection. No MRI evidence of fracture, osteonecrosis or osteomyelitis. No joint effusion or arthritic change. Lisfranc ligament is intact, no tarsometatarsal malalignment. No ligament or tendon rupture is seen. IMPRESSION: Mild subcutaneous edema/cellulitis within the dorsal-lateral aspect of the left mid to forefoot. No organized abscess, osteomyelitis or bony pathology demonstrated. at 2044 Reported and signed by: Seth Cavazos M.D. CC: Serafin Cavazos MD; Zachary Grayson MD Dictated Date/Time: 04/03/2018 (2044)Technologist: Lisa Proctor RN Transcribed Date/Time: 04/03/2018 (2044) By: Ana PaulaAJP6 Orig Print D/T: S: 04/03/2018 (2047) LOI Chaves NAME[facility]YS: - Serafin Cavazos MD [address] [place] [address] : 1960 AGE: 57 SEX: Asif CHAVES, [place] [id number] LOC: [id number] W PHONE #: [phone] EXAM DATE: 04/03/2018 STATUS: AD M IN FAX #: [phone] RAD NO: DC Dt: PAGE 1 Signed Report BASIC METABOLIC [id number] 20:34:00* Test Item Value Reference Range Comments SODIUM (test code=NA) 138.0 mmol/L 133-144 POTASSIUM (test code=K) 4.7 mmol/L 3.5-5.1 CHLORIDE (test code=CL) 107 mmol/L 95-105 CARBON DIOXIDE (test code=CO2) 21 mmol/L 21-32 ANION GAP (test code=GAP) 10.0 GAP calc 4.0-15.0 GLUCOSE (test code=GLU) 133 MG/DL 70-110 BLOOD UREA NITROGEN (test code=BUN) 20 MG/DL 7-18 CREATININE (test code=CREAT) 0.83 MG/DL 0.55-1.30 Results may be depressed if patient is takingN-Acetylcysteine (NAC) and Metamizole (Dipyrone). CALCIUM (test code=CA) 8.3 MG/DL 8.5-10.1 INDEX HEMOLYSIS (test code=HEMINDEX) 3 SMALL 25-50 MG Index/DL 1 NORMAL INDEX ICTERIC (test code=ICTINDEX) 1 NORMAL <2 MG Index/DL 1 NORMAL INDEX LIPEMIA (test code=LIPINDEX) 1 NORMAL <50 MG Index/DL 1 NORMAL [id number] 20:23:00* Test Item Value Reference Range Comments CKMB (test code=CKMBT) 1.9 NG/ML 1.0-3.6 MONOCLONAL CKMB METHODOLOGY. [id number] 20:23:00* Test Item Value Reference Range Comments TROPONIN-I (test code=TROPI) < 0.015 NG/ML 0.000-0.045 An elevated troponin value alone is not sufficient todiagnose a myocardial infarction. Rather, the patient'sclinical presentation (history, physical exam) and ECGshould be used in conjunction with troponin in thediagnostic evaluation of suspected myocardial infarction. Aserial sampling protocol is recommended to facilitate theidentification of temporal changes in troponin levelscharacteristic of AK. [id number] 20:23:00* Test Item Value Reference Range Comments MYOGLOBIN (test code=MYOG) 69 NG/ML 10-92 CBC W/AUTO [id number] 20:04:00* Test Item Value Reference Range Comments WHITE BLOOD CELL (test code=WBC) 9.5 K/mm3 4.1-12.1 RED BLOOD CELL (test code=RBC) 4.16 M/mm3 3.8-5.5 HEMOGLOBIN (test code=HGB) 10.4 G/DL 10.6-15.8 HEMATOCRIT (test code=HCT) 33.9 % 36.0-47.4 MEAN CELL VOLUME (test code=MCV) 81.5 fL 80.1-101.1 MEAN CELL HGB (test code=MCH) 25.0 pg 25.3-35.3 MEAN CELL HGB CONCETRATION (test code=MCHC) 30.7 G/DL 32.7-35.1 RED CELL DISTRIBUTION WIDTH (test code=RDW) 16.9 % 12.2-16.4 RED CELL DISTRIBUTION WIDTH (test code=RDW-SD) 50.1 fL 35.1-43.9 PLATELET COUNT (test code=PLT) 278 K/mm3 155-337 MEAN PLATELET VOLUME (test code=MPV) 9.7 fL 7.6-10.4 GRANULOCYTE % (test code=GR%) 61.8 % 37.8-82.6 IMMATURE GRANULOCYTE % (test code=IG%) 1.1 % 0.0-2.0 LYMPHOCYTE % (test code=LY%) 19.5 % 14.1-45.4 MONOCYTE % (test code=MO%) 10.1 % 2.5-11.7 EOSINOPHIL % (test code=EO%) 6.8 % 0.0-6.2 BASOPHIL % (test code=BA%) 0.7 % 0.0-2.6 NUCLEATED RBC % (test code=NRBC%) 0.0 /100WBC% 0.0-1.0 GRANULOCYTE # (test code=GR#) 5.87 k/mm3 2.0-13.7 IMMATURE GRANULOCYTE # (test code=IG#) 0.10 K/mm3 0.00-0.03 LYMPHOCYTE # (test code=LY#) 1.85 K/mm3 0.6-3.8 MONOCYTE # (test code=MO#) 0.96 K/mm3 0.11-0.59 EOSINOPHIL # (test code=EO#) 0.65 K/mm3 0.0-0.4 BASOPHIL # (test code=BA#) 0.07 K/mm3 0.0-0.1 NUCLEATED RBC # (test code=NRBC#) 0.00 K/mm3 0.00-0.05 - MRI LOW EXT W/CONT [id number] 19:16:00 FAX: Serafin Cavazos MD Portal: C St: ADM FAX: Zachary Grayson MD [phone] FAX: Chris Muir [phone] Patient Name: FELECIA ASTORGA Unit No: [id number] EXAMS: CPT CODE: [id number] MRI LOW EXT W/[place] [address] Site ID: [id number] HISTORY: Rule out osteomyelitis COMPARISON: None TECHNIQUE: Multiplanar, multisequence MRI of the right midfoot was performed without intravenous contrast FINDINGS: Mild generalized subcutaneous edema dorsally within the midfoot. No organ ized abscess or soft tissue collection. No MRI evidence of fractur e, osteonecrosis or osteomyelitis. 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 No joint effusions. Lisfranc ligamen t is intact, no tarsometatarsal malalignment. No ligament or tendon rupture is seen. No advanced arthritic change or bony dest ruction. IMPRESSION: Mild generalized subcuta neous edema dorsally. No organized abscess, osteomyelitis or bony patho logy demonstrated. Electronically Signed by Alaina Cavazos on 04/03 at 1916 Reported and signed by: Seth Cavazos M.D. CC: Zachary Grayson MD; Chris Milligan MD Dictated Date/Time: 04/03/2018 (1915)Technologist: Lisa Proctor RN Transcribed Date/Time: 04/03/2018 (1915) By: Ana [email or web address] Orig Print D/T: S: 04/03/2018 (1919) NAVNEETLiss Chaves NAME: FELECIA ASTORGA [facility] PHYS: BASIA - Chris Milligan [address] : 1960 AGE: 57 SEX: DANIEL [place] [address] LOC: [id number] W PHONE #: [phone] EXAM DATE: 04/03/2018 STATUS: ADM IN FAX #: [phone] RAD NO: DC Dt: PAGE 1 Signed Report GLUCOSE BEDSIDE [id number] 17:04:00* Test Item Value Reference Range Comments GLUCOSE BEDSIDE TESTING (test code=GLUBED) 127 MG/DL 70-119 GLUCOSE BEDSIDE [id number] 12:35:00* Test Item Value Reference Range Comments GLUCOSE BEDSIDE TESTING (test code=GLUBED) 178 MG/DL 70-119 GLUCOSE BEDSIDE [id number] 08:31:00* Test Item Value Reference Range Comments GLUCOSE BEDSIDE TESTING (test code=GLUBED) 270 MG/DL 70-119 [id number] 06:15:00* Test Item Value Reference Range Comments TROPONIN-I (test code=TROPI) < 0.015 NG/ML 0.000-0.045 An elevated troponin value alone is not sufficient todiagnose a myocardial infarction. Rather, the patient'sclinical presentation (history, physical exam) and ECGshould be used in conjunction with troponin in thediagnostic evaluation of suspected myocardial infarction. Aserial sampling protocol is recommended to facilitate theidentification of temporal changes in troponin levelscharacteristic of AK. GLUCOSE BEDSIDE [id number] 21:29:00* Test Item Value Reference Range Comments GLUCOSE BEDSIDE TESTING (test code=GLUBED) 148 MG/DL 70-119 [id number] 19:58:00* Test Item Value Reference Range Comments TROPONIN-I (test code=TROPI) < 0.015 NG/ML 0.000-0.045 An elevated troponin value alone is not sufficient todiagnose a myocardial infarction. Rather, the patient'sclinical presentation (history, physical exam) and ECGshould be used in conjunction with troponin in thediagnostic evaluation of suspected myocardial infarction. Aserial sampling protocol is recommended to facilitate theidentification of temporal changes in troponin levelscharacteristic of [place]. LIPID PROFILE (CORONARY RISK)2018-04-02 17:23:00* Test Item Value Reference Range Comments TRIGLYCERIDES (test code=TRIG) 146 MG/DL 0-150 Results may be depressed if patient is takingN-Acetylcysteine (NAC) and Metamizole (Dipyrone). CHOLESTEROL (test code=CHOL) 184 MG/DL 133-200 CHOLESTEROL/HDL RATIO (test code=CHOLHDL) 4.38 RATIO >0 REFERENCE RANGE: MALE FEMALE 1/2 AVG RISK 3.43 3.27 AVG RISK 4.97 4.44 2X AVG RISK 9.55 7.05 3X AVG RISK 23.39 11.04 HDL CHOLESTEROL (test code=HDL) 42 MG/DL 40-59 Results maybe depressed if patient is taking Metamizole(Dipyrone). NON-HDL CHOLESTEROL (test code=NHDL) 142 mg/dL <130 Patients with CHD or CHD risk LDL: <70 mg/dL nonHDL: <100 mg/dLPatients with 2+ risk factors LDL: <130 mg/dL nonHDL: <160 mg/dLPatients with 0-1 risk factors LDL: <160 mg/dL nonHDL: <190 mg/dL LIPOPROTEIN LDL (test code=LDL) 113 MG/DL 0-129 LDL/HDL (test code=LDL/HDL) 2.69 Ratio 1.48-3.22 Avg LDL/HDL RISK ASSESSMENT1.47 One-half average3.22 Average5.03 Two times average6.14 Three times average INDEX HEMOLYSIS (test code=HEMINDEX) 3 SMALL 25-50 MG Index/DL 1 NORMAL INDEX ICTERIC (test code=ICTINDEX) 1 NORMAL <2 MG Index/DL 1 NORMAL INDEX LIPEMIA (test code=LIPINDEX) 1 NORMAL <50 MG Index/DL 1 NORMAL THYROID STIMULATING [id number] 17:22:00* Test Item Value Reference Range Comments THYROID STIMULATING HORMONE (test code=TSH) 3.420 mcIU/ML 0.340-4.820 GLYCOSYLATED HEMOGLOBIN (HA1C)2018-04-02 17:20:00* Test Item Value Reference Range Comments GLYCOSYLATED HEMOGLOBIN (HA1C) (test code=GLYHGB) 7.2 % A1C 4.2-6.3 ESTIMATED AVERAGE [id number] 17:20:00* Test Item Value Reference Range Comments ESTIMATED AVERAGE GLUCOSE (test code=EAG) 160 MG/DLest GLUCOSE BEDSIDE [id number] 17:14:00* Test Item Value Reference Range Comments GLUCOSE BEDSIDE TESTING (test code=GLUBED) 208 MG/DL 70-119 [id number] 15:59:00* Test Item Value Reference Range Comments TROPONIN-I (test code=TROPI) < 0.015 NG/ML 0.000-0.045 An elevated troponin value alone is not sufficient todiagnose a myocardial infarction. Rather, the patient'sclinical presentation (history, physical exam) and ECGshould be used in conjunction with troponin in thediagnostic evaluation of suspected myocardial infarction. Aserial sampling protocol is recommended to facilitate theidentification of temporal changes in troponin levelscharacteristic of AK. - XR CHEST 1 [id number] 13:08:00 FAX: Zachary Grayson MD [phone] Portal: St: REG Patient Na me: FELECIA ASTORGA Unit No: [id number] EXAMS: CPT CODE: [id number] XR CHEST 1 V [id number] Location: T18 CHEST X-RAY: AP frontal projection, one view CLINICAL HISTORY: Chest pain, ER presentation COMPARISON EXAMS: 03/28/18 chest x-ray exam FINDINGS: Heart, lungs, and mediastinal structures are within normal limits. No evolving process or pleural based finding. No active CHF or pneumonia. IMPRESSION: No acute finding at 1308 Reported and signed by: Dasha Sanches M.D. CC: Zachary Grayson MD Dictated Date/Time: 04/02/2018 (9299)Technologist: Ap Jurado Transcribed Date/Time: 019 (1308) By: Ana [email or web address] Orig Print D/T: S: 04/02/2018 (7528) LOI Chaves NAME: FELECIA ASTORGA [address] [place] [address] PHYS: [place]. - Zachary Grayson MD, [place] [address] : 1960 AGE: 57 SEX: M LOC: [facility] PHONE #: [phone] EXAM DATE: 04/02/2018 STATUS: REG ER FAX #: RAD NO: DC Dt: PAGE 1 Signed Report TROPONIN I RAPID 2018-04-02 12:39:00* Test Item Value Reference Range Comments TROPONIN I RAPID (test code=TROPIRAP) 0.00 NG/ML 0.00-0.07 An elevated troponin value alone is not sufficient todiagnose a myocardial infarction. Rather, the patient'sclinical presentation (history, physical exam) and ECGshould be used in conjunction with troponin in thediagnostic evaluation of suspected myocardial infarction. Aserial sampling protocol is recommended to facilitate theidentification of temporal changes in troponin levelscharacteristic of [place]. CBC W/O [id number] 12:33:00* Test Item Value Reference Range Comments WHITE BLOOD CELL (test code=WBC) 9.0 K/mm3 4.1-12.1 RED BLOOD CELL (test code=RBC) 3.93 M/mm3 3.8-5.5 HEMOGLOBIN (test code=HGB) 9.6 G/DL 10.6-15.8 HEMATOCRIT (test code=HCT) 32.7 % 36.0-47.4 MEAN CELL VOLUME (test code=MCV) 83.2 fL 80.1-101.1 MEAN CELL HGB (test code=MCH) 24.4 pg 25.3-35.3 MEAN CELL HGB CONCETRATION (test code=MCHC) 29.4 G/DL 32.7-35.1 RED CELL DISTRIBUTION WIDTH (test code=RDW) 17.2 % 12.2-16.4 PLATELET COUNT (test code=PLT) 250 K/mm3 155-337 MEAN PLATELET VOLUME (test code=MPV) 9.2 fL 7.6-10.4 CHEMISTRY 7 [id number] 12:32:00* Test Item Value Reference Range Comments IONIZED CALCIUM (test code=CAIABG) mmol/L 1.13-1.32 ISTAT-TCO2 VENOUS (test code=TCO2VP) MMOL/L 21-32 ISTAT-SODIUM (test code=NAP) MMOL/L 135-148 ISTAT-POTASSIUM (test code=KP) MMOL/L 3.5-5.9 ISTAT-CHLORIDE (test code=CLP) MMOL/L 98-106 ISTAT-ANION GAP (test code=GAPP) MEQ/L 10-20 ISTAT-GLUCOSE (test code=GLUP) MG/DL 70-119 ISTAT-BUN (test code=BUNP) MG/DL 8-28 BEDSIDE CREATININE (test code=CREATBED) MG/DL 0.6-1.2 GLOMERULAR FILTRATION RATE POC (test code=GFRBED) 99 56-130 CHEMISTRY 7 [id number] 12:32:00* Test Item Value Reference Range Comments IONIZED CALCIUM (test code=CAIABG) 1.19 mmol/L 1.13-1.32 ISTAT-TCO2 VENOUS (test code=TCO2VP) 27 MMOL/L 21-32 ISTAT-SAMPLE SOURCE (test code=SRCIST) UNKNOWN SPEC TYPE Descript Specimen ISTAT-SODIUM (test code=NAP) 138 MMOL/L 135-148 ISTAT-POTASSIUM (test code=KP) 3.9 MMOL/L 3.5-5.9 ISTAT-CHLORIDE (test code=CLP) 101 MMOL/L 98-106 ISTAT-ANION GAP (test code=GAPP) 15.0 MEQ/L 10-20 ISTAT-GLUCOSE (test code=GLUP) 124 MG/DL 70-119 ISTAT-BUN (test code=BUNP) 19 MG/DL 8-28 BEDSIDE CREATININE (test code=CREATBED) 0.8 MG/DL 0.6-1.2 GLOMERULAR FILTRATION RATE POC (test code=GFRBED) 99 56-130 CT Abdomen and Pelvis w/ [id number] 05:01:34Patient: FELECIA ASTORGA Date/Time03/30/2018 04:48 CSTReason for Examabd pain and distension;Other (please specify)ReportEXAM: CT ABDOMEN AND PELVIS WITH CONTRASTINDICATION: Abdominal painCOMPARISON: None availableTECHNIQUE: Routine axial CT images of the abdomen and pelvis were obtained after administration of intravenous contrast. Coronal and sagittal reformatted images were submitted for review.IV contrast: 100 cc of Omnipaque 300DLP: 1507.3 mGy-cmFINDINGS:The heart size is normal. There are coronary artery calcifications. The lung bases are clear. No pleural or pericardial effusion is identified.The liver, spleen, pancreas, and adrenal glands are brooke l. There has been prior cholecystectomy. No intrahepatic biliary ductal dilatati on. No liver lesions are identified. The main portal vein and splenic veins are patent.The kidneys are normal in size. No nephrolithiasis, hydronephrosis, or pe rinephric stranding is identified. The urinary bladder is decompressed.The stoma ch, small bowel, large bowel and appendix are normal. No evidence of bowel obstr uction.No lymphadenopathy is identified in the abdomen or pelvis. No free fluid or free air is identified. There is an IVC filter seen in place. The abdominal a sreekanth is normal in caliber.The osseous structures are normal.IMPRESSION:No acute abnormality is identified in the abdomen or pelvis. Normal appendix.LOCATION: R1 6This CT exam was performed according to our departmental dose optimization prog anali, which includes automated exposure control, adjustment of the mA and/or kV a ccording to the patient size and/or use of iterative reconstructive technique. Final Dictated by: MD Sethi Melanie CDictated DT/TM: 03/30/2018 4 :59 amSigned by: MD Sethi Melanie CSigned (Electronic Signature): 9 5:01 amCT Brain/Head w/o [id number] 00:32:53Patient: FELECIA ASTORGA Date/Time03/30/2018 00:28 CSTReason for Examsyncope;Other (please specify)ReportEXAM: CT BRAIN WITHOUT CONTRASTINDICATION: SyncopeCOMPARISON: None availableTECHNIQUE: Routine axial noncontrast CT images of the brain were obtained.IV contrast: None.DLP: 783.5 mGy-cmFINDINGS:No intra-axial or extra-axial fluid collections are identified. No acute hemorrhage.There is normal differentiation of the ahumada and white matter. The ventricles and sulci are normal in size and shape with no midline shift or mass effect. The basal cisterns are patent. The posterior fossa and fourth ventricle are normal.The paranasal sinuses and mastoid air cells are clear. No calvarial lesions. Skull base is intact. Orbits and globes are unr emarkable.IMPRESSION:No acute intracranial abnormality. No intracranial hemorrha ge.LOCATION: E71Dcnv CT exam was performed according to our departmental dose op timization program, which includes automated exposure control, adjustment of the mA and/or kV according to the patient size and/or use of iterative reconstructi ve technique. Final Dictated by: MD Sethi Melanie CDictated DT/T M: 03/30/2018 0:32 amSigned by: MD Sethi Melanie CSigned (Electronic Signatu re): 03/30/2018 0:32 amXR Chest 1 View [id number] 23:21:20Patient: FELECIA ASTORGA Date/Time03/29/2018 22:34 CSTReason for Examsyncope, chest pain;Other (please s pecify)ReportLocation code: R 16Chest 1 viewIndication:Other (please specify);sy ncope, chest pain.Comparison: 01/25/2018Findings:The heart and mediastinum are no t remarkable.Costophrenic angles are clear.Lungs are clear.Bone is unremarkable for age.Impression:1. No radiographic evidence of acute cardiopulmonary disease. Final Dictated by: MD Prado Daniel RDictated DT/TM: 03/29/2018 11:20 pmSigned by: MD Prado Daniel RSigned (Electronic Signature): 2018 11:21 pm- XR CHEST 1 [id number] 18:31:00 FAX: Erika Brower MD Portal: St: PRE Name: FELECIA RAMIREZ [facility] : [birth year] 57 Age/S: 57/M [address] [facility] Unit #: [id number] Loc: [place], [place]: [place] [address] Acct: [id number] Dis Date: Status: PRE ER PHONE #: [phone] Exam Date: 03/28/2018 1816 FAX #: [phone] Reason: CP EXAMS: CPT CODE: [id number] XR CHEST 1 V [id number] Chest Radiograph His tory: CP Comparison: March 05, 2018 Location: R16 A single frontal view of the chest is submitted. The heart appears unchanged in size. Pulmonary vasculature is unremarkable. The visualized lung quintana appear to be free of disease. The bones appear unchanged. IMPRESSION: There is no radiographic evidence of acute cardiopulmonary disease. at 1831 Reported and signed by: Irving Munson M.D. CC: Erika Sharif MD Technologist: JOSE R ANDRE Trnscrd Date/Time/By: 03/28/2018 (1830) : By: Richi PAGE 1 Signed Report FAX: Erika Brower MD Portal: St: PRE------- Name: FELECIA ASTORGA [facility] : [birth year] Age/S: 57/M [address] [facility] Unit #: [id number] Loc: [place], [place]: [place] [address] Acct: [id number] Dis Date: Status: PRE ER PHONE #: [phone] Exam Date: 03/28/2018 181 FAX #: [phone] Reason: CP EXAMS: CPT CODE: [id number] XR CHEST 1 V 93278 <Continued> Orig Print D/T: S: 03/28/2018 (183) PAGE 2 Signed Report BASIC METABOLIC [id number] 10:43:00* Test Item Value Reference Range Comments SODIUM (test code=NA) 139 MMOL/L 137-145 POTASSIUM (test code=K) 4.5 MMOL/L 3.5-5.1 CHLORIDE (test code=CL) 105 MMOL/L 98-107 CARBON DIOXIDE (test code=CO2) 25 MMOL/L 22-30 ANION GAP (test code=GAP) 14 MMOL/L 14-24 GLUCOSE (test code=GLU) 127 MG/DL 74-106 BLOOD UREA NITROGEN (test code=BUN) 14 MG/DL 9-20 GLOMERULAR FILTRATION RATE (test code=GFR) > 60 Reporting units: ml/min/1.73 m2 (Modified MDRD Formula)Reference Range: > or=60 ml/min/1.73 m2 CREATININE (test code=CREAT) 0.70 MG/DL 0.66-1.25 CALCIUM (test code=CA) 9.4 MG/DL 8.4-10.2 HEPATIC FUNCTION [id number] 10:43:00* Test Item Value Reference Range Comments TOTAL PROTEIN (test code=PROT) 8.3 G/DL 6.2-7.6 ALBUMIN (test code=ALB) 3.9 G/DL 3.5-5.0 BILIRUBIN TOTAL (test code=BILT) 0.2 MG/DL 0.2-1.3 BILIRUBIN DIRECT (test code=BILD) 0.0 MG/DL 0.0-0.3 SGOT/AST (test code=AST) 27 UNITS/L 17-59 SGPT/ALT (test code=ALT) 20 UNITS/L 21-72 ALKALINE PHOSPHATASE (test code=ALKP) 92 UNITS/L 38-126 CREATINE KINASE (CK)2018-03-20 10:43:00* Test Item Value Reference Range Comments CREATINE KINASE (CK) (test code=CK) 251 UNITS/L 55-170 [id number] 10:43:00* Test Item Value Reference Range Comments ACETAMINOPHEN (test code=ACET) < 10.0 MCG/ML 10-30 [id number] 10:43:00* Test Item Value Reference Range Comments SALICYLATE (test code=SHAKILA) < 1.0 MG/DL <2.0 [id number] 10:43:00* Test Item Value Reference Range Comments ALCOHOL (test code=ALC) < 10.0 MG/DL <10 CBC W/O [id number] 10:26:00* Test Item Value Reference Range Comments WHITE BLOOD CELL (test code=WBC) 8.5 K/MM3 3.8-9.8 RED BLOOD CELL (test code=RBC) 4.16 M/MM3 3.95-5.67 HEMOGLOBIN (test code=HGB) 10.2 G/DL 12.4-16.7 HEMATOCRIT (test code=HCT) 34.3 % 35.9-49.5 MEAN CELL VOLUME (test code=MCV) 83 fL 81.7-96.1 MEAN CELL HGB (test code=MCH) 24.5 pg 27.6-33.2 MEAN CELL HGB CONCETRATION (test code=MCHC) 29.7 % 32.9-35.5 RED CELL DISTRIBUTION WIDTH (test code=RDW) 17.6 % 12.1-15.2 PLATELET COUNT (test code=PLT) 320 K/MM3 129-368 IMMATURE GRANULOCYTE % (test code=IG%) 0.4 % 0.0-2.0 NEUTROPHIL # (test code=NT#) 5.7 K/mm3 2.0-7.6 IMMATURE GRANULOCYTE # (test code=IG#) 0.03 x10 3/uL 0-0.03 LYMPHOCYTE # (test code=LY#) 1.3 K/mm3 1.0-3.8 MONOCYTE # (test code=MO#) 0.71 K/mm3 0.1-0.8 EOSINOPHIL # (test code=EO#) 0.7 K/mm3 0.0-0.2 BASOPHIL # (test code=BA#) 0.06 K/mm3 0.0-0.2 NUCLEATED RBC # (test code=NRBC#) 0.0 K/mm3 0.0-0.1 URINALYSIS [id number] 10:10:00* Test Item Value Reference Range Comments UA COLOR (test code=COLU) YELLOW YELLOW UA APPEARANCE (test code=APPU) CLEAR CLEAR UA GLUCOSE DIPSTICK (test code=DGLUU) NORMAL MG/DL NORMAL UA BILIRUBIN DIPSTICK (test code=BILU) NEGATIVE MG/DL NEGATIVE UA KETONE DIPSTICK (test code=KETU) NEGATIVE MG/DL NEGATIVE UA SPECIFIC GRAVITY (test code=SGU) 1.010 1.003-1.030 UA BLOOD DIPSTICK (test code=GERALDINE) NEGATIVE Floyd/mm3 NEGATIVE UA PH DIPSTICK (test code=SOFIA) 6.0 5.0-9.0 UA PROTEIN DIPSTICK (test code=PROU) NEGATIVE MG/DL NEGATIVE UA UROBILINIOGEN DIPSTICK (test code=URO) NORMAL MG/DL NORMAL UA NITRITE DIPSTICK (test code=BRADEN) NEGATIVE NEGATIVE UA LEUKOCYTE ESTERASE DIPSTICK (test code=LEUU) NEGATIVE /mm3 NEGATIVE UA CULTURE NEEDED? (test code=UACULT) NEGATIVE, NO CULTURE Criteria Culture Chk DRUGS OF ABUSE SCREEN [id number] 10:10:00* Test Item Value Reference Range Comments UR COCAINE (test code=COCAU) NEGATIVE NEGATIVE Cut off Value: 300 ng/mL UR CANNABINOIDS (THC) (test code=CANU) NEGATIVE NEGATIVE Cut off Value: 50 ng/mL UR AMPHETAMINE (test code=AMPHU) NEGATIVE NEGATIVE Cut off Value: 1000 ng/mL UR BARBITURATE QUAL (test code=BARBQLU) NEGATIVE NEGATIVE Cut off Value: 200 ng/mL UR BENZODIAZEPINE (test code=BENZU) NEGATIVE NEGATIVE Cut off Value: 200 ng/mL UR OPIATES QUAL (test code=OPIAQLU) POSITIVE NEGATIVE Cut off Value: 300 ng/mL UR PHENCYCLIDINE (PCP) (test code=PHENCU) NEGATIVE NEGATIVE Cut off Value: 25 ng/mL URINALYSIS [id number] 09:50:00* Test Item Value Reference Range Comments UA COLOR (test code=COLU) YELLOW YELLOW UA APPEARANCE (test code=APPU) CLEAR CLEAR UA GLUCOSE DIPSTICK (test code=DGLUU) NORMAL MG/DL NORMAL UA BILIRUBIN DIPSTICK (test code=BILU) NEGATIVE MG/DL NEGATIVE UA KETONE DIPSTICK (test code=KETU) NEGATIVE MG/DL NEGATIVE UA SPECIFIC GRAVITY (test code=SGU) 1.010 1.003-1.030 UA BLOOD DIPSTICK (test code=GERALDINE) NEGATIVE Floyd/mm3 NEGATIVE UA PH DIPSTICK (test code=SOFIA) 6.0 5.0-9.0 UA PROTEIN DIPSTICK (test code=PROU) NEGATIVE MG/DL NEGATIVE UA UROBILINIOGEN DIPSTICK (test code=URO) NORMAL MG/DL NORMAL UA NITRITE DIPSTICK (test code=BRADEN) NEGATIVE NEGATIVE UA LEUKOCYTE ESTERASE DIPSTICK (test code=LEUU) NEGATIVE /mm3 NEGATIVE UA CULTURE NEEDED? (test code=UACULT) NEGATIVE, NO CULTURE Criteria Culture Chk DRUGS OF ABUSE SCREEN [id number] 09:50:00* Test Item Value Reference Range Comments UR COCAINE (test code=COCAU) NEGATIVE UR CANNABINOIDS (THC) (test code=CANU) NEGATIVE UR AMPHETAMINE (test code=AMPHU) NEGATIVE UR BARBITURATE QUAL (test code=BARBQLU) NEGATIVE UR BENZODIAZEPINE (test code=BENZU) NEGATIVE UR OPIATES QUAL (test code=OPIAQLU) NEGATIVE UR PHENCYCLIDINE (PCP) (test code=PHENCU) NEGATIVE URINALYSIS [id number] 09:48:00* Test Item Value Reference Range Comments UA COLOR (test code=COLU) YELLOW YELLOW UA APPEARANCE (test code=APPU) CLEAR CLEAR UA GLUCOSE DIPSTICK (test code=DGLUU) NORMAL MG/DL NORMAL UA BILIRUBIN DIPSTICK (test code=BILU) NEGATIVE MG/DL NEGATIVE UA KETONE DIPSTICK (test code=KETU) NEGATIVE MG/DL NEGATIVE UA SPECIFIC GRAVITY (test code=SGU) 1.010 1.003-1.030 UA BLOOD DIPSTICK (test code=GERALDINE) NEGATIVE Floyd/mm3 NEGATIVE UA PH DIPSTICK (test code=SOFIA) 6.0 5.0-9.0 UA PROTEIN DIPSTICK (test code=PROU) NEGATIVE MG/DL NEGATIVE UA UROBILINIOGEN DIPSTICK (test code=URO) NORMAL MG/DL NORMAL UA NITRITE DIPSTICK (test code=BRADEN) NEGATIVE NEGATIVE UA LEUKOCYTE ESTERASE DIPSTICK (test code=LEUU) NEGATIVE /mm3 NEGATIVE UA CULTURE NEEDED? (test code=UACULT) Criteria Culture Chk DRUGS OF ABUSE SCREEN [id number] 09:48:00* Test Item Value Reference Range Comments UR COCAINE (test code=COCAU) NEGATIVE UR CANNABINOIDS (THC) (test code=CANU) NEGATIVE UR AMPHETAMINE (test code=AMPHU) NEGATIVE UR BARBITURATE QUAL (test code=BARBQLU) NEGATIVE UR BENZODIAZEPINE (test code=BENZU) NEGATIVE UR OPIATES QUAL (test code=OPIAQLU) NEGATIVE UR PHENCYCLIDINE (PCP) (test code=PHENCU) NEGATIVE - US EXTREM NON VAS [id number] 10:02:00 Patient Name: FELECIA ASTORGA Unit No: [id number] EXAMS: CPT CODE: [id number] US EXTREM NON VAS LTD 77880 Clinical history: Abscess. Location: E5. FINDINGS: Real-time grayscale sonographic evaluation is performed targeted at the right forearm in the region of concern. No comparison studies. There is diffuse moderate to pronounced edema involving the soft tissues of the forearm. No defined focal fluid collections are identified to suggest abscess at this time. Impression: 1. Moderate to pronounced soft tissue edema at the right forearm would be consistent with cellulitis in the setting of infection. No definite abscess. at 1002 Reported and signed by: Torsten Talavera MD CC: Antionette Kidd; Corrine Cruz Technologist: Mary Renae RDMS(OB)(AB) Transcrpt Date/Tm/Trnsp: 03/12/2018 (1002) Ana PaulaRC7 Orig Print D/T: S: 03/12/2018 (1005) [facility] NAME: FELECIA ASTORGA [address] [place] PHYS: [place] [address] : 1960 AGE: 57 SEX: M LOC: Z.644 A PHONE #: [phone] EXAM DATE: 03/12/2018 STATUS: ADM IN FAX #: [phone] RADIOLOGY NO: PAGE 1 Signed Report CBC W/O [id number] 21:03:00* Test Item Value Reference Range Comments WHITE BLOOD CELL (test code=WBC) 8.6 K/MM3 3.8-9.8 RED BLOOD CELL (test code=RBC) 3.92 M/MM3 3.95-5.67 HEMOGLOBIN (test code=HGB) 9.7 G/DL 12.4-16.7 HEMATOCRIT (test code=HCT) 31.9 % 35.9-49.5 MEAN CELL VOLUME (test code=MCV) 81 fL 81.7-96.1 MEAN CELL HGB (test code=MCH) 24.7 pg 27.6-33.2 MEAN CELL HGB CONCETRATION (test code=MCHC) 30.4 % 32.9-35.5 RED CELL DISTRIBUTION WIDTH (test code=RDW) 18.3 % 12.1-15.2 PLATELET COUNT (test code=PLT) 266 K/MM3 129-368 IMMATURE GRANULOCYTE % (test code=IG%) 0.3 % 0.0-2.0 NEUTROPHIL # (test code=NT#) 5.4 K/mm3 2.0-7.6 IMMATURE GRANULOCYTE # (test code=IG#) 0.03 x10 3/uL 0-0.03 LYMPHOCYTE # (test code=LY#) 1.3 K/mm3 1.0-3.8 MONOCYTE # (test code=MO#) 0.79 K/mm3 0.1-0.8 EOSINOPHIL # (test code=EO#) 1.0 K/mm3 0.0-0.2 BASOPHIL # (test code=BA#) 0.06 K/mm3 0.0-0.2 NUCLEATED RBC # (test code=NRBC#) 0.0 K/mm3 0.0-0.1 UNABLE TO DRAW BLOOD, REASON: PT HARD STICKNOTIFIED PATIENT CARE STAFF: [facility] 03/11/18 AT 1439 BY Adelaida Dickey [id number] 21:03:00* Test Item Value Reference Range Comments RBC MORPHOLOGY REQUIRED (test code=RBCM) ABNORMAL TOTAL CELLS COUNTED (test code=TCC) 130 #CELLS SEGMENTED NEUTROPHILS (test code=SEG) 66.9 % 36.2-73.8 BAND NEUTROPHIL (test code=BAND) 0.0 % 0-10 LYMPHOCYTE (test code=LYMPH) 8.5 % 12.9-45.1 ATYPICAL LYMPH (test code=ALYMPH) 8.5 % 0-0 MONOCYTE (test code=MON) 6.1 % 0-11 EOSINOPHIL (test code=EOS) 10.0 % 1-7 POLYCHROMASIA (test code=POLC) MANY NONE HYPOCHROMIA (test code=HYPO) MODERATE NONE ANISOCYTOSIS (test code=ANISO) SLIGHT NONE MICROCYTOSIS (test code=MICR) FEW NONE ELLIPTOCYTES (test code=ELL) FEW NONE OVALOCYTES (test code=OVAL) FEW NONE STOMATOCYTES (test code=STO) FEW NONE PLATELET ESTIMATE (test code=PLTEST) ADEQUATE ADEQUATE PLATELET MORPHOLOGY (test code=PLTMORPH) NORMAL NORMAL UNABLE TO DRAW BLOOD, REASON: PT HARD STICKNOTIFIED PATIENT CARE STAFF: [facility] 03/11/18 AT 1439 BY Lacie Dickey W/O [id number] 20:10:00* Test Item Value Reference Range Comments WHITE BLOOD CELL (test code=WBC) 8.6 K/MM3 3.8-9.8 RED BLOOD CELL (test code=RBC) 3.92 M/MM3 3.95-5.67 HEMOGLOBIN (test code=HGB) 9.7 G/DL 12.4-16.7 HEMATOCRIT (test code=HCT) 31.9 % 35.9-49.5 MEAN CELL VOLUME (test code=MCV) 81 fL 81.7-96.1 MEAN CELL HGB (test code=MCH) 24.7 pg 27.6-33.2 MEAN CELL HGB CONCETRATION (test code=MCHC) 30.4 % 32.9-35.5 RED CELL DISTRIBUTION WIDTH (test code=RDW) 18.3 % 12.1-15.2 PLATELET COUNT (test code=PLT) 266 K/MM3 129-368 IMMATURE GRANULOCYTE % (test code=IG%) 0.3 % 0.0-2.0 NEUTROPHIL # (test code=NT#) 5.4 K/mm3 2.0-7.6 IMMATURE GRANULOCYTE # (test code=IG#) 0.03 x10 3/uL 0-0.03 LYMPHOCYTE # (test code=LY#) 1.3 K/mm3 1.0-3.8 MONOCYTE # (test code=MO#) 0.79 K/mm3 0.1-0.8 EOSINOPHIL # (test code=EO#) 1.0 K/mm3 0.0-0.2 BASOPHIL # (test code=BA#) 0.06 K/mm3 0.0-0.2 NUCLEATED RBC # (test code=NRBC#) 0.0 K/mm3 0.0-0.1 UNABLE TO DRAW BLOOD, REASON: PT HARD STICKNOTIFIED PATIENT CARE STAFF: [facility] 03/11/18 AT 1439 BY Adelaida Dickey [id number] 20:10:00* Test Item Value Reference Range Comments RBC MORPHOLOGY REQUIRED (test code=RBCM) TOTAL CELLS COUNTED (test code=TCC) #CELLS SEGMENTED NEUTROPHILS (test code=SEG) % 36.2-73.8 LYMPHOCYTE (test code=LYMPH) % 12.9-45.1 MONOCYTE (test code=MON) % 0-11 PLATELET ESTIMATE (test code=PLTEST) ADEQUATE PLATELET MORPHOLOGY (test code=PLTMORPH) NORMAL UNABLE TO DRAW BLOOD, REASON: PT HARD STICKNOTIFIED PATIENT CARE STAFF: [facility] 03/11/18 AT 1439 BY Carey DickeyDomenica W/AUTO [id number] 20:10:00* Test Item Value Reference Range Comments WHITE BLOOD CELL (test code=WBC) 8.6 K/MM3 3.8-9.8 RED BLOOD CELL (test code=RBC) 3.92 M/MM3 3.95-5.67 HEMOGLOBIN (test code=HGB) 9.7 G/DL 12.4-16.7 HEMATOCRIT (test code=HCT) 31.9 % 35.9-49.5 MEAN CELL VOLUME (test code=MCV) 81 fL 81.7-96.1 MEAN CELL HGB (test code=MCH) 24.7 pg 27.6-33.2 MEAN CELL HGB CONCETRATION (test code=MCHC) 30.4 % 32.9-35.5 RED CELL DISTRIBUTION WIDTH (test code=RDW) 18.3 % 12.1-15.2 PLATELET COUNT (test code=PLT) 266 K/MM3 129-368 MEAN PLATELET VOLUME (test code=MPV) 10.0 fl 7.4-10.4 NEUTROPHIL % (test code=NT%) 63.0 % 43-75 IMMATURE GRANULOCYTE % (test code=IG%) 0.3 % 0.0-2.0 LYMPHOCYTE % (test code=LY%) 15.5 % 14-44 MONOCYTE % (test code=MO%) 9.2 % 4-13 EOSINOPHIL % (test code=EO%) 11.3 % 0-6 BASOPHIL % (test code=BA%) 0.7 % 0-2 NUCLEATED RBC % (test code=NRBC%) 0.0 % 0-1.0 NEUTROPHIL # (test code=NT#) 5.4 K/mm3 2.0-7.6 IMMATURE GRANULOCYTE # (test code=IG#) 0.03 x10 3/uL 0-0.03 LYMPHOCYTE # (test code=LY#) 1.3 K/mm3 1.0-3.8 MONOCYTE # (test code=MO#) 0.79 K/mm3 0.1-0.8 EOSINOPHIL # (test code=EO#) 1.0 K/mm3 0.0-0.2 BASOPHIL # (test code=BA#) 0.06 K/mm3 0.0-0.2 NUCLEATED RBC # (test code=NRBC#) 0.0 K/mm3 0.0-0.1 UNABLE TO DRAW BLOOD, REASON: PT HARD STICKNOTIFIED PATIENT CARE STAFF: [facility] 03/11/18 AT 1439 BY Adelaida Dickey [id number] 20:10:00* Test Item Value Reference Range Comments RBC MORPHOLOGY REQUIRED (test code=RBCM) TOTAL CELLS COUNTED (test code=TCC) #CELLS SEGMENTED NEUTROPHILS (test code=SEG) % 36.2-73.8 LYMPHOCYTE (test code=LYMPH) % 12.9-45.1 MONOCYTE (test code=MON) % 0-11 PLATELET ESTIMATE (test code=PLTEST) ADEQUATE PLATELET MORPHOLOGY (test code=PLTMORPH) NORMAL UNABLE TO DRAW BLOOD, REASON: PT HARD STICKNOTIFIED PATIENT CARE STAFF: [facility] 03/11/18 AT 1439 BY Kim Dickey METABOLIC [id number] 15:18:00* Test Item Value Reference Range Comments SODIUM (test code=NA) 138 MMOL/L 137-145 POTASSIUM (test code=K) 4.4 MMOL/L 3.5-5.1 CHLORIDE (test code=CL) 107 MMOL/L 98-107 CARBON DIOXIDE (test code=CO2) 22 MMOL/L 22-30 GLUCOSE (test code=GLU) 141 MG/DL 74-106 BLOOD UREA NITROGEN (test code=BUN) 15 MG/DL 9-20 GLOMERULAR FILTRATION RATE (test code=GFR) > 60 Reporting units: ml/min/1.73 m2 (Modified MDRD Formula)Reference Range: > or=60 ml/min/1.73 m2 CREATININE (test code=CREAT) 0.70 MG/DL 0.66-1.25 CALCIUM (test code=CA) 9.7 MG/DL 8.4-10.2 CREATINE KINASE (CK)2018-03-10 12:48:00* Test Item Value Reference Range Comments CREATINE KINASE (CK) (test code=CK) 1127 UNITS/L 55-170 CREATINE KINASE (CK)2018-03-09 18:49:00* Test Item Value Reference Range Comments CREATINE KINASE (CK) (test code=CK) 1532 UNITS/L 55-170 COMPREHENSIVE METABOLIC [id number] 18:19:00* Test Item Value Reference Range Comments GLUCOSE (test code=06D) 110 mg/dL 75-100 SODIUM (test code=01A) 137 mmol/L 136-145 POTASSIUM (test code=01B) 4.2 mmol/L 3.6-5.1 CHLORIDE (test code=04A) 105 mmol/L 98-107 CO2 (test code=02A) 24 mmol/L 22-32 ANION GAP (test code=ANG) 12.2 mmol/L BUN (test code=05D) 13 mg/dL 7-18 CREATININE (test code=03E) 1.0 mg/dL 0.7-1.3 BUN/CREA (test code=BCR) 12 12-20 CALCIUM (test code=09D) 9.1 mg/dL 8.3-9.5 BILI TOTAL (test code=11A) 0.2 mg/dL 0.2-1.0 PROTEIN (test code=07D) 8.0 g/dL 6.4-8.2 ALBUMIN (test code=08D) 3.4 g/dL 3.5-4.8 GLOBULIN (test code=GLB) 4.6 g/dL 1.5-3.8 ALB/GLOB (test code=AGRR) 0.7 1.0-2.6 ALK PHOS (test code=35A) 88 IU/L 42-121 AST (test code=30A) 25 IU/L <=42 ALT (test code=31A) 34 IU/L <=78 PRO TIME AND [id number] 18:12:00* Test Item Value Reference Range Comments PT (test code=TT) 12.1 s 9.8-13.6 INR (test code=INR) 1.1 INRH (test code=INRH) SUGGESTED THERAPEUTIC RANGE FOR INR: 2.5 - 3.5 For Patients with Prosthetic Valves or Patients with recurrent Thromboembolic Events 2.0 - 3.0 For Most Other Applications PTT (test code=PTT) 24.3 s 20.2-38.0 PTTH (test code=PTTH) To monitor the effectiveness of heparin, we offer the Anti-Xa (Heparin Assay). It can be used for either unfractionated or LMW Heparin. Order Code is ANTI-XA CBC (INCLUDES AUTOMATED DIFFERENTIAL)2018-02-22 18:06:00* Test Item Value Reference Range Comments WBC (test code=WBC) 6.8 10\S\3/uL 4.5-11.0 RBC (test code=RBC) 4.30 10\S\6/uL 4.20-5.60 HGB (test code=HBG) 10.6 g/dL 14.0-18.0 HCT (test code=HCT) 35.0 % 35.0-46.0 MCV (test code=MCV) 81.4 fL 80.0-94.0 MCH (test code=MCH) 24.7 pg 27.0-31.0 MCHC (test code=MCHC) 30.3 g/dL 32.0-36.0 RDW (test code=RDW) 18.3 % 11.5-14.5 PLT (test code=PLT) 329 10\S\3/uL 130-400 MPV (test code=MPV) 9.0 fL 9.4-12.4 NEUTROP # (test code=NE#) 3.9 10\S\3/uL 2.0-8.0 LYMPH # (test code=LY#) 1.2 10\S\3/uL 1.2-4.0 MONOCYTE # (test code=MO#) 0.7 10\S\3/uL 0.0-1.1 EOSINOPH # (test code=EO#) 0.9 10\S\3/uL 0.0-0.7 BASOPHIL # (test code=BA#) 0.1 10\S\3/uL 0.0-0.3 IG # (test code=IG#) 0.01 10\S\3/uL 0.00-0.06 NRBC # (test code=NRBC#) 0.00 10\S\3/uL 0.00-0.01 NEUTROPH % (test code=NE%) 57.0 % 35.0-73.0 LYMPH % (test code=LY%) 18.0 % 20.0-55.0 MONO % (test code=MO%) 10.5 % 2.5-10.0 EOSINOPH % (test code=EO%) 13.4 % 0.0-5.0 BASOPHIL % (test code=BA%) 1.0 % 0.0-2.0 IG % (test code=IG%) 0.1 % 0.0-0.8 NRBC% (test code=NRBC%) 0.0 % 0.0-0.2 MANDIFF (test code=MDIFF) NO NO RBC MORPH (test code=RBCMOR) NORMAL CARBAMAZEPHINE (TEGRETOL)2018-02-11 13:18:00* Test Item Value Reference Range Comments CARBAMAZPN (test code=98A) <0.5 ug/mL 4.0-12.0 CARBAMAZEPHINE (TEGRETOL)2018-02-11 09:12:00* Test Item Value Reference Range Comments CARBAMAZPN (test code=98A) <0.5 ug/mL 4.0-12.0 CARBAMAZEPHINE (TEGRETOL)2018-02-11 04:44:00* Test Item Value Reference Range Comments CARBAMAZPN (test code=98A) <0.5 ug/mL 4.0-12.0 COMPREHENSIVE METABOLIC [id number] 02:59:00* Test Item Value Reference Range Comments GLUCOSE (test code=06D) 122 mg/dL 75-100 SODIUM (test code=01A) 142 mmol/L 136-145 POTASSIUM (test code=01B) 3.4 mmol/L 3.6-5.1 CHLORIDE (test code=04A) 108 mmol/L 98-107 CO2 (test code=02A) 23 mmol/L 22-32 ANION GAP (test code=ANG) 14.4 mmol/L BUN (test code=05D) 14 mg/dL 7-18 CREATININE (test code=03E) 0.7 mg/dL 0.7-1.3 BUN/CREA (test code=BCR) 19 12-20 CALCIUM (test code=09D) 8.4 mg/dL 8.3-9.5 BILI TOTAL (test code=11A) 0.1 mg/dL 0.2-1.0 PROTEIN (test code=07D) 7.1 g/dL 6.4-8.2 ALBUMIN (test code=08D) 3.0 g/dL 3.5-4.8 GLOBULIN (test code=GLB) 4.1 g/dL 1.5-3.8 ALB/GLOB (test code=AGRR) 0.7 1.0-2.6 ALK PHOS (test code=35A) 87 IU/L 42-121 AST (test code=30A) 14 IU/L <=42 ALT (test code=31A) 21 IU/L <=78 [id number] 02:53:00* Test Item Value Reference Range Comments ACETAMINPH (test code=94M) <2.0 ug/mL 10.0-30.0 AMYLASE AND [id number] 02:53:00* Test Item Value Reference Range Comments AMYLASE (test code=10A) 45 U/L 28-100 LIPASE (test code=60A) 93 IU/L 73-393 ALCOHOL BLOOD (ETOH)2018-02-11 02:53:00* Test Item Value Reference Range Comments ETOH (test code=HALC) ETHANOL The result is to be used only for medical purposes ALCOHOL (test code=56A) <10 mg/dL <=10 DRUGS OF [id number] 02:53:00* Test Item Value Reference Range Comments DRUG SCRN (test code=HDOA) URINE DRUG SCREEN This is an unconfirmed screening result and should not be used for non-medical purposes CANNABINOD (test code=88C) Negative NEGATIVE AMPHETAMINE (test code=84A) Negative NEGATIVE BENZODIAZP (test code=86A) Negative NEGATIVE BARBITURAT (test code=85A) Negative NEGATIVE OPIATES (test code=92B) Negative NEGATIVE COCAINE (test code=87A) Negative NEGATIVE PHENCYCLID (test code=66A) Negative NEGATIVE METHADONE (test code=64A) Negative NEGATIVE DOAH (test code=DOAH.) URINE DRUG SCREEN Cut-off values are as follows: Cannabinoids 50 ng/mL Cocaine 300 ng/mL Amphetamines 1000 ng/mL Phencyclidine 25 ng/mL Benzodiazepines 200 ng.mL Methadone 300 ng/mL Barbiturates 200 ng/mL Opiates 2000 ng/mL [id number] 02:51:00* Test Item Value Reference Range Comments SALICYLATE (test code=94B) <1.7 mg/dL 2.8-20.0 [id number] 02:49:00* Test Item Value Reference Range Comments MAGNESIUM (test code=48A) 1.7 mg/dL 1.8-2.4 CARDIAC [id number] 02:49:00* Test Item Value Reference Range Comments TROPONIN I (test code=A84) 0.027 ng/mL 0.000-0.045 [id number] 02:49:00* Test Item Value Reference Range Comments COLOR (test code=COLU) YELLOW YELLOW CLARITY (test code=CLA) CLEAR CLEAR GLUCOSE UR (test code=UA GLUCOSE) NEGATIVE NEGATIVE BILI UR (test code=BILE) NEGATIVE NEGATIVE KETONES UR (test code=CHELSEA) NEGATIVE NEGATIVE SP GRAVITY (test code=SPGR) 1.014 1.005-1.030 PH UR (test code=PH) 6.0 4.5-8.0 PROTEIN UR (test code=PU) NEGATIVE NEGATIVE UROBIL UR (test code=UROQ) 0.2 EU/dL 0.2-1.0 NITRITE UR (test code=NITRITE) NEGATIVE NEGATIVE BLOOD UR (test code=UA BLOOD) NEGATIVE NEGATIVE LEUK ES UR (test code=LEUK) NEGATIVE NEGATIVE CBC (INCLUDES AUTOMATED DIFFERENTIAL)2018-02-11 02:28:00* Test Item Value Reference Range Comments WBC (test code=WBC) 8.1 10\S\3/uL 4.5-11.0 RBC (test code=RBC) 3.85 10\S\6/uL 4.20-5.60 HGB (test code=HBG) 9.6 g/dL 14.0-18.0 HCT (test code=HCT) 31.6 % 35.0-46.0 MCV (test code=MCV) 82.1 fL 80.0-94.0 MCH (test code=MCH) 24.9 pg 27.0-31.0 MCHC (test code=MCHC) 30.4 g/dL 32.0-36.0 RDW (test code=RDW) 19.3 % 11.5-14.5 PLT (test code=PLT) 286 10\S\3/uL 130-400 MPV (test code=MPV) 8.8 fL 9.4-12.4 NEUTROP # (test code=NE#) 5.6 10\S\3/uL 2.0-8.0 LYMPH # (test code=LY#) 1.2 10\S\3/uL 1.2-4.0 MONOCYTE # (test code=MO#) 0.7 10\S\3/uL 0.0-1.1 EOSINOPH # (test code=EO#) 0.5 10\S\3/uL 0.0-0.7 BASOPHIL # (test code=BA#) 0.0 10\S\3/uL 0.0-0.3 IG # (test code=IG#) 0.08 10\S\3/uL 0.00-0.06 NRBC # (test code=NRBC#) 0.00 10\S\3/uL 0.00-0.01 NEUTROPH % (test code=NE%) 69.0 % 35.0-73.0 LYMPH % (test code=LY%) 15.0 % 20.0-55.0 MONO % (test code=MO%) 8.7 % 2.5-10.0 EOSINOPH % (test code=EO%) 5.8 % 0.0-5.0 BASOPHIL % (test code=BA%) 0.5 % 0.0-2.0 IG % (test code=IG%) 1.0 % 0.0-0.8 NRBC% (test code=NRBC%) 0.0 % 0.0-0.2 MANDIFF (test code=MDIFF) NO NO RBC MORPH (test code=RBCMOR) NORMAL CBC (INCLUDES AUTOMATED DIFFERENTIAL) *2018-02-04 02:27:00* Test Item Value Reference Range Comments WBC (test code=WBC) 9.3 10\S\3/uL 4.5-11.0 RBC (test code=RBC) 3.71 10\S\6/uL 4.20-5.60 HGB (test code=HBG) 9.9 g/dL 14.0-18.0 HCT (test code=HCT) 29.8 % 35.0-46.0 MCV (test code=MCV) 80.4 fL 80.0-94.0 MCH (test code=MCH) 26.7 pg 27.0-31.0 MCHC (test code=MCHC) 33.2 g/dL 32.0-36.0 RDW (test code=RDW) 20.2 % 11.5-14.5 PLT (test code=PLT) 295 10\S\3/uL 130-400 MPV (test code=OMPV) 7.2 fL 6.2-10.2 NEUTROP # (test code=NE#) 6.9 10\S\3/uL 2.0-8.0 LYMPH # (test code=LY#) 1.5 10\S\3/uL 1.2-4.0 MID # (test code=GMID#) 0.8 10\S\3/uL 0.0-1.1 GRA % (test code=GRA%) 74.4 % 35.0-73.0 LYMPH % (test code=GLY%) 16.6 % 20.0-55.0 MID % (test code=GMID%) 9.0 % 0.0-10.0 CHEM8+ i-STAT OW2018-02-04 02:25:00* Test Item Value Reference Range Comments SODIUM (test code=LAVON) 141 mmol/L 138-146 POTASSIUM (test code=KI) 3.8 mmol/L 3.5-4.9 CHLORIDE (test code=CLI) 104 mmol/L 98-109 CA IONIZED (test code=ICAI) 1.17 mmol/L 1.12-1.32 GLUCOSE (test code=GLUI) 117 mg/dL 75-100 TCO2 (test code=TCO2) 24 mmol/L 24-29 BUN (test code=BUN1) 10 mg/dL 8-26 CREATININE (test code=CREAI) 0.7 mg/dL 0.6-1.3 ANION GAP (test code=GANG) 17.0 mmol/L HGB (test code=MHB) 10.5 g/dL 12.0-17.0 HCT (test code=MHCT) 31.0 % 38.0-51.0 XR ABDOMEN AP 1 VIEW [id number] 16:28:53Abdomen, 2 viewsLocation Code: H6Stzldwem history: Nausea and vomitingComparison: 05/01/2017Comments: The bowel gas pattern is unremarkable. There is no visualizedabnormal calcification. The visualized osseous structures are intact. IVCfilter remains.Impression: No acute radiographic abnormality.TROPONIN [id number] 16:04:00* Test Item Value Reference Range Comments TROPONIN I (test code=A84) <0.015 ng/mL 0.000-0.045 AMYLASE AND [id number] 16:03:00* Test Item Value Reference Range Comments AMYLASE (test code=10A) 43 U/L 28-100 LIPASE (test code=60A) 133 IU/L 73-393 COMPREHENSIVE METABOLIC [id number] 16:03:00* Test Item Value Reference Range Comments GLUCOSE (test code=06D) 106 mg/dL 75-100 SODIUM (test code=01A) 141 mmol/L 136-145 POTASSIUM (test code=01B) 3.7 mmol/L 3.6-5.1 CHLORIDE (test code=04A) 109 mmol/L 98-107 CO2 (test code=02A) 23 mmol/L 22-32 ANION GAP (test code=ANG) 12.7 mmol/L BUN (test code=05D) 13 mg/dL 7-18 CREATININE (test code=03E) 0.8 mg/dL 0.7-1.3 BUN/CREA (test code=BCR) 16 12-20 CALCIUM (test code=09D) 8.2 mg/dL 8.3-9.5 BILI TOTAL (test code=11A) 0.2 mg/dL 0.2-1.0 PROTEIN (test code=07D) 7.1 g/dL 6.4-8.2 ALBUMIN (test code=08D) 3.2 g/dL 3.5-4.8 GLOBULIN (test code=GLB) 3.9 g/dL 1.5-3.8 ALB/GLOB (test code=AGRR) 0.8 1.0-2.6 ALK PHOS (test code=35A) 84 IU/L 42-121 AST (test code=30A) 21 IU/L <=42 ALT (test code=31A) 20 IU/L <=78 DRUGS OF [id number] 16:02:00* Test Item Value Reference Range Comments DRUG SCRN (test code=HDOA) URINE DRUG SCREEN This is an unconfirmed screening result and should not be used for non-medical purposes CANNABINOD (test code=88C) Negative NEGATIVE AMPHETAMINE (test code=84A) Negative NEGATIVE BENZODIAZP (test code=86A) Negative NEGATIVE BARBITURAT (test code=85A) Negative NEGATIVE OPIATES (test code=92B) Negative NEGATIVE COCAINE (test code=87A) Negative NEGATIVE PHENCYCLID (test code=66A) Negative NEGATIVE METHADONE (test code=64A) Negative NEGATIVE DOAH (test code=DOAH.) URINE DRUG SCREEN Cut-off values are as follows: Cannabinoids 50 ng/mL Cocaine 300 ng/mL Amphetamines 1000 ng/mL Phencyclidine 25 ng/mL Benzodiazepines 200 ng.mL Methadone 300 ng/mL Barbiturates 200 ng/mL Opiates 2000 ng/mL [id number] 15:52:00* Test Item Value Reference Range Comments COLOR (test code=COLU) YELLOW YELLOW CLARITY (test code=CLA) CLEAR CLEAR GLUCOSE UR (test code=UA GLUCOSE) NEGATIVE NEGATIVE BILI UR (test code=BILE) NEGATIVE NEGATIVE KETONES UR (test code=CHELSEA) NEGATIVE NEGATIVE SP GRAVITY (test code=SPGR) 1.015 1.005-1.030 PH UR (test code=PH) 6.0 4.5-8.0 PROTEIN UR (test code=PU) NEGATIVE NEGATIVE UROBIL UR (test code=UROQ) 0.2 EU/dL 0.2-1.0 NITRITE UR (test code=NITRITE) NEGATIVE NEGATIVE BLOOD UR (test code=UA BLOOD) NEGATIVE NEGATIVE LEUK ES UR (test code=LEUK) NEGATIVE NEGATIVE CBC (INCLUDES AUTOMATED DIFFERENTIAL)2018-02-02 15:49:00* Test Item Value Reference Range Comments WBC (test code=WBC) 8.9 10\S\3/uL 4.5-11.0 RBC (test code=RBC) 3.71 10\S\6/uL 4.20-5.60 HGB (test code=HBG) 9.2 g/dL 14.0-18.0 HCT (test code=HCT) 30.2 % 35.0-46.0 MCV (test code=MCV) 81.4 fL 80.0-94.0 MCH (test code=MCH) 24.8 pg 27.0-31.0 MCHC (test code=MCHC) 30.5 g/dL 32.0-36.0 RDW (test code=RDW) 19.7 % 11.5-14.5 PLT (test code=PLT) 268 10\S\3/uL 130-400 MPV (test code=MPV) 9.0 fL 9.4-12.4 NEUTROP # (test code=NE#) 6.4 10\S\3/uL 2.0-8.0 LYMPH # (test code=LY#) 1.3 10\S\3/uL 1.2-4.0 MONOCYTE # (test code=MO#) 0.8 10\S\3/uL 0.0-1.1 EOSINOPH # (test code=EO#) 0.5 10\S\3/uL 0.0-0.7 BASOPHIL # (test code=BA#) 0.1 10\S\3/uL 0.0-0.3 IG # (test code=IG#) 0.02 10\S\3/uL 0.00-0.06 NRBC # (test code=NRBC#) 0.00 10\S\3/uL 0.00-0.01 NEUTROPH % (test code=NE%) 71.0 % 35.0-73.0 LYMPH % (test code=LY%) 14.1 % 20.0-55.0 MONO % (test code=MO%) 8.8 % 2.5-10.0 EOSINOPH % (test code=EO%) 5.3 % 0.0-5.0 BASOPHIL % (test code=BA%) 0.6 % 0.0-2.0 IG % (test code=IG%) 0.2 % 0.0-0.8 NRBC% (test code=NRBC%) 0.0 % 0.0-0.2 MANDIFF (test code=MDIFF) NO NO XR Chest 1 View [id number] 17:26:33Patient: FELECIA ASTORGA Date/Time01/25/2018 17:23 CSTReason for ExamChest painReportCHEST 1 VIEWCLINICAL INFORMATION: Chest painCOMPARISON: November 18, 2017FINDINGS:The lungs are well-expanded and clear. No airspace consolidation is seen. No pneumothorax or pleural effusion is present. The cardiac silhouette is normal in size. The bones are grossly intact.IMPRESSION:No acute cardiopulmonary finding.LOCATION: R16 Final Dictated by: MD Camacho Adam FDictated DT/TM: 01/25/2018 5:26 pmSigned by: MD Camacho Adam FSigned (Electronic Signature): 01/25/2018 5:26 pm [facility], PHARM, [id number] 16:35:00FINAL REPORT PROCEDURE: REST STRESS MYOCARDIAL PERFUSION SCAN WITH Lexiscan CPT CODE: 70568 INDICATION: Chest pain, CAD PROTOCOL: Patient underwent rest and post stress imaging. 10.6 mCi of technetium 99 sestamibi was injected intravenously at rest and tomographic (SPECT) images were obtained. 30.9 mCi of technetium 99 sestamibi was injected intravenously after infusion of 0.4 mg of Regadenoson. The patient's resting heart rate was 53 beats minute. The patient reached peak heart rate of 80 beats per minute. This was 49% of the maximal predicted heart rate. Blood pressure reached a maximum of 143/74. Other stress and monitoring data are reported separately. Gated SPECT images were obtained after stress injection. FINDINGS: Images obtained after resting and stress injections of tracer show normal perfusion in the LV myocardium. There was a fixed inferior defect seen at stress and rest likely consistent with a soft tissue defect. The QGS LVEF is 6 to%. Wall mot ion is normal. IMPRESSION: Probably normal studyFixed inferior defect sugge stive of attenuation artifactNo significant reversible ischemiaNormal LVEF and w all motion Signed: Darek Carlton MDReport Verified Date/Time: 01/23/2018 16:3 5:45 Reading Location: [facility] Reading Room Electronically sign ed by: DAREK CARLTON MD on 01/23/2018 04:35 PM TROPONIN [id number] 05:26:00* Test Item Value Reference Range Comments TROPONIN I (BEAKER) (test oero=376) < ng/mL 0.00-0.15 TROPONIN [id number] 22:45:00* Test Item Value Reference Range Comments TROPONIN I (BEAKER) (test cgie=426) < ng/mL 0.00-0.15 B-TYPE NATRIURETIC FACTOR (BNP)2018-01-22 22:45:00* Test Item Value Reference Range Comments B-TYPE NATRIURETIC PEPTIDE (BEAKER) (test xyrh=931) 27 pg/mL 0-100 BASIC METABOLIC [id number] 22:38:00* Test Item Value Reference Range Comments SODIUM (BEAKER) (test mgqb=540) 139 meq/L 135-148 POTASSIUM (BEAKER) (test ubqj=966) 4.5 meq/L 3.5-5.5 Specimen moderately hemolyzed CHLORIDE (BEAKER) (test zfqx=177) 108 meq/L 98-106 CO2 (BEAKER) (test apkb=155) 21 meq/L 20-31 BLOOD UREA NITROGEN (BEAKER) (test lgdu=241) 14 mg/dL 10-26 CREATININE (BEAKER) (test flrn=555) 0.76 mg/dL 0.50-1.20 Specimen moderately hemolyzed GLUCOSE RANDOM (BEAKER) (test sukx=374) 88 mg/dL 70-110 CALCIUM (BEAKER) (test bhpx=712) 8.8 mg/dL 8.5-10.5 EGFR (BEAKER) (test lyad=6400) 105 mL/min/1.73 sq m ESTIMATED GFR IS NOT ACCURATE CREATININE CLEARANCE IN PREDICTING GLOMERULAR FILTRATION RATE. ESTIMATED GFR IS NOT APPLICABLE FOR DIALYSIS PATIENTS. CBC W/PLT COUNT & AUTO [id number] 22:21:00* Test Item Value Reference Range Comments WHITE BLOOD CELL COUNT (BEAKER) (test wmeh=430) 8.1 K/ L 4.0-10.0 RED BLOOD CELL COUNT (BEAKER) (test kyxs=845) 3.73 M/ L 4.20-5.80 HEMOGLOBIN (BEAKER) (test eohm=026) 9.3 GM/DL 13.0-16.8 HEMATOCRIT (BEAKER) (test rtzt=522) 29.9 % 36.0-50.0 MEAN CORPUSCULAR VOLUME (BEAKER) (test cbec=743) 80.2 fL 82.0-99.0 MEAN CORPUSCULAR HEMOGLOBIN (BEAKER) (test idpr=160) 24.9 pg 27.0-33.0 MEAN CORPUSCULAR HEMOGLOBIN CONC (BEAKER) (test mfrb=120) 31.1 GM/DL 32.0-36.0 RED CELL DISTRIBUTION WIDTH (BEAKER) (test pnxm=069) 20.0 % 12.0-15.0 PLATELET COUNT (BEAKER) (test lqsw=452) 247 K/CU MM 150-430 MEAN PLATELET VOLUME (BEAKER) (test uhko=381) 9.2 fL 6.0-11.5 MPV-Approximately 20% positive bias due to method change. NUCLEATED RED BLOOD CELLS (BEAKER) (test zkcm=539) 0 /100 WBC 0-0 NEUTROPHILS RELATIVE PERCENT (BEAKER) (test rtdc=756) 65 % LYMPHOCYTES RELATIVE PERCENT (BEAKER) (test cavz=480) 19 % MONOCYTES RELATIVE PERCENT (BEAKER) (test dmys=623) 10 % EOSINOPHILS RELATIVE PERCENT (BEAKER) (test exop=518) 6 % BASOPHILS RELATIVE PERCENT (BEAKER) (test fvgf=837) 0 % NEUTROPHILS ABSOLUTE COUNT (BEAKER) (test cwbj=850) 5.24 K/ L 1.80-8.00 LYMPHOCYTES ABSOLUTE COUNT (BEAKER) (test aqjs=113) 1.49 K/ L 1.48-4.50 MONOCYTES ABSOLUTE COUNT (BEAKER) (test stuh=804) 0.80 K/ L 0.00-1.30 EOSINOPHILS ABSOLUTE COUNT (BEAKER) (test paan=703) 0.48 K/ L 0.00-0.50 BASOPHILS ABSOLUTE COUNT (BEAKER) (test ziap=401) 0.03 K/ L 0.00-0.20 IMMATURE GRANULOCYTES-RELATIVE PERCENT (BEAKER) (test qyca=7615) 0 % 0-0 RAD, CHEST, 2 [id number] 20:36:00Reason for exam:->CHEST PAINFINAL REPORT TECHNIQUE: RAD, CHEST, 2 VIEWS COMPARISON: Plain radiograph of the chest dated 02/16/2017. Additional clinical history: Chest pain FINDINGS: The cardiomediastinal silhouette is within normal limits. Lungs are clear. No pleural effusion or pneumothorax. Osseous structures are unrem arkable. Soft tissues appear unremarkable. IMPRESSION:No acute cardiopulmonar y disease. Signed: Corinne Elise Verified Date/Time: 01/22/2018 20:36:08 Reading Location: [address] Transitional Reading Room [facility] [place] y signed by: CORINNE ELISE MD on 01/22/2018 08:36 PM TROPONIN I 2018-01-18 18:00:00* Test Item Value Reference Range Comments TROPONIN I (test code=A84) <0.015 ng/mL 0.000-0.045 BASIC METABOLIC [id number] 17:56:00* Test Item Value Reference Range Comments GLUCOSE (test code=06D) 119 mg/dL 75-100 SODIUM (test code=01A) 140 mmol/L 136-145 POTASSIUM (test code=01B) 3.6 mmol/L 3.6-5.1 CHLORIDE (test code=04A) 106 mmol/L 98-107 CO2 (test code=02A) 28 mmol/L 22-32 ANION GAP (test code=ANG) 9.6 mmol/L BUN (test code=05D) 10 mg/dL 7-18 CREATININE (test code=03E) 0.8 mg/dL 0.7-1.3 BUN/CREA (test code=BCR) 13 12-20 CALCIUM (test code=09D) 8.5 mg/dL 8.3-9.5 CBC (INCLUDES AUTOMATED DIFFERENTIAL)2018-01-18 17:47:00* Test Item Value Reference Range Comments WBC (test code=WBC) 7.3 10\S\3/uL 4.5-11.0 RBC (test code=RBC) 4.21 10\S\6/uL 4.20-5.60 HGB (test code=HBG) 10.3 g/dL 14.0-18.0 HCT (test code=HCT) 34.0 % 35.0-46.0 MCV (test code=MCV) 80.8 fL 80.0-94.0 MCH (test code=MCH) 24.5 pg 27.0-31.0 MCHC (test code=MCHC) 30.3 g/dL 32.0-36.0 RDW (test code=RDW) 19.6 % 11.5-14.5 PLT (test code=PLT) 293 10\S\3/uL 130-400 MPV (test code=MPV) 8.5 fL 9.4-12.4 NEUTROP # (test code=NE#) 5.6 10\S\3/uL 2.0-8.0 LYMPH # (test code=LY#) 0.9 10\S\3/uL 1.2-4.0 MONOCYTE # (test code=MO#) 0.6 10\S\3/uL 0.0-1.1 EOSINOPH # (test code=EO#) 0.2 10\S\3/uL 0.0-0.7 BASOPHIL # (test code=BA#) 0.0 10\S\3/uL 0.0-0.3 IG # (test code=IG#) 0.02 10\S\3/uL 0.00-0.06 NRBC # (test code=NRBC#) 0.00 10\S\3/uL 0.00-0.01 NEUTROPH % (test code=NE%) 76.3 % 35.0-73.0 LYMPH % (test code=LY%) 12.3 % 20.0-55.0 MONO % (test code=MO%) 7.9 % 2.5-10.0 EOSINOPH % (test code=EO%) 2.6 % 0.0-5.0 BASOPHIL % (test code=BA%) 0.6 % 0.0-2.0 IG % (test code=IG%) 0.3 % 0.0-0.8 NRBC% (test code=NRBC%) 0.0 % 0.0-0.2 MANDIFF (test code=MDIFF) NO NO RBC MORPH (test code=RBCMOR) NORMAL OCCULT [id number] 15:38:00* Test Item Value Reference Range Comments Direct Exam (test code=DE1) NEGATIVE FOR OCCULT BLOOD [id number] 15:11:00* Test Item Value Reference Range Comments COLOR (test code=COLU) YELLOW YELLOW CLARITY (test code=CLA) CLEAR CLEAR GLUCOSE UR (test code=UA GLUCOSE) NEGATIVE NEGATIVE BILI UR (test code=BILE) NEGATIVE NEGATIVE KETONES UR (test code=CHELSEA) TRACE NEGATIVE SP GRAVITY (test code=SPGR) 1.027 1.005-1.030 PH UR (test code=PH) 6.0 4.5-8.0 PROTEIN UR (test code=PU) NEGATIVE NEGATIVE UROBIL UR (test code=UROQ) 0.2 EU/dL 0.2-1.0 NITRITE UR (test code=NITRITE) NEGATIVE NEGATIVE BLOOD UR (test code=UA BLOOD) NEGATIVE NEGATIVE LEUK ES UR (test code=LEUK) NEGATIVE NEGATIVE XR CHEST 1 VIEW [id number] 15:07:05Exam: Chest portable erectLocation: [id number]: Chest pain Comparison: 10/16/2017Findings:The lungs are clear. No infiltrate or effusion is seen. The pulmonaryvasculature is normal. The heart size is normal. The mediastinal silhouette isunremarkable. The bony thorax is intact.Impression:No acute disease.GLUCOMETER GLUCOSE- LAB USE [id number] 15:24:00* Test Item Value Reference Range Comments GLUCOMETER (test code=GMG) 141 mg/dL 70-100 CLEANED METERMeter ID: [id number]: [id number] KANDI FOXOLE URINALYSIS WITH [id number] 11:48:00* Test Item Value Reference Range Comments COLOR (test code=COLU) DK YELLOW YELLOW CLARITY (test code=CLA) CLEAR CLEAR GLUCOSE UR (test code=UA GLUCOSE) NEGATIVE NEGATIVE BILI UR (test code=BILE) NEGATIVE NEGATIVE KETONES UR (test code=CHELSEA) NEGATIVE NEGATIVE SP GRAVITY (test code=SPGR) 1.034 1.005-1.030 PH UR (test code=PH) 6.0 4.5-8.0 PROTEIN UR (test code=PU) NEGATIVE NEGATIVE UROBIL UR (test code=UROQ) 0.2 EU/dL 0.2-1.0 NITRITE UR (test code=NITRITE) NEGATIVE NEGATIVE BLOOD UR (test code=UA BLOOD) NEGATIVE NEGATIVE LEUK ES UR (test code=LEUK) NEGATIVE NEGATIVE WBC UR (test code=UWBC) 2 /HPF 0-3 RBC UR (test code=URBC) 0 /HPF 0-2 EPITH UR (test code=UEPC) FEW /LPF NONE BACTERIA UR (test code=UBACT) NONE /HPF NONE CAST UR (test code=CAST) /LPF NONE CRYSTAL UR (test code=CRYU) / LPF NONE MUCUS UR (test code=MUC) / HPF NONE AMORPH UR (test code=SRINI) / HPF NONE TRICH UR (test code=UTRICH) /HPF NONE YEAST UR (test code=UY) /HPF NONE SPERM UR (test code=USPERM) /HPF NONE GLUCOMETER GLUCOSE- LAB USE [id number] 11:00:00* Test Item Value Reference Range Comments GLUCOMETER (test code=GMG) 151 mg/dL 70-100 Meter ID: [id number]: [id number] RESHMA LUNA [id number] 04:32:00* Test Item Value Reference Range Comments Hb A1C % (test code=HBA) 5.8 % 4.2-6.3 CBC WITH [id number] 04:23:00* Test Item Value Reference Range Comments WBC (test code=WBC) 7.4 10\S\3/uL 4.5-11.0 RBC (test code=RBC) 3.95 10\S\6/uL 4.20-5.60 HGB (test code=HBG) 9.5 g/dL 14.0-18.0 HCT (test code=HCT) 31.7 % 35.0-46.0 MCV (test code=MCV) 80.3 fL 80.0-94.0 MCH (test code=MCH) 24.1 pg 27.0-31.0 MCHC (test code=MCHC) 30.0 g/dL 32.0-36.0 RDW (test code=RDW) 20.1 % 11.5-14.5 PLT (test code=PLT) 277 10\S\3/uL 130-400 MPV (test code=MPV) 9.0 fL 9.4-12.4 NEUTROP # (test code=NE#) 4.7 10\S\3/uL 2.0-8.0 LYMPH # (test code=LY#) 1.4 10\S\3/uL 1.2-4.0 MONOCYTE # (test code=MO#) 0.8 10\S\3/uL 0.0-1.1 EOSINOPH # (test code=EO#) 0.4 10\S\3/uL 0.0-0.7 BASOPHIL # (test code=BA#) 0.1 10\S\3/uL 0.0-0.3 IG # (test code=IG#) 0.02 10\S\3/uL 0.00-0.06 NRBC # (test code=NRBC#) 0.00 10\S\3/uL 0.00-0.01 NEUTROPH % (test code=NE%) 63.8 % 35.0-73.0 LYMPH % (test code=LY%) 19.0 % 20.0-55.0 MONO % (test code=MO%) 10.2 % 2.5-10.0 EOSINOPH % (test code=EO%) 5.7 % 0.0-5.0 BASOPHIL % (test code=BA%) 1.0 % 0.0-2.0 IG % (test code=IG%) 0.3 % 0.0-0.8 NRBC% (test code=NRBC%) 0.0 % 0.0-0.2 PLT EST (test code=PLTEST) ADEQUATE ADEQUATE PLT MORPH (test code=PLTMOR) NORMAL (1.5-3 um) NORMAL ANISO (test code=ANISO) 2+ NONE POIK (test code=POIK) 2+ NONE HYPOCHROM (test code=HYPOC) 1+ NONE POLYCHROM (test code=POLY) 1+ NONE TARGET (test code=TARG) 1+ NONE OVALOCYTES (test code=OVA) 1+ NONE CARDIAC [id number] 03:37:00* Test Item Value Reference Range Comments TROPONIN I (test code=A84) <0.015 ng/mL 0.000-0.045 BASIC METABOLIC [id number] 03:26:00* Test Item Value Reference Range Comments GLUCOSE (test code=06D) 130 mg/dL 75-100 SODIUM (test code=01A) 137 mmol/L 136-145 POTASSIUM (test code=01B) 3.2 mmol/L 3.6-5.1 CHLORIDE (test code=04A) 101 mmol/L 98-107 CO2 (test code=02A) 29 mmol/L 22-32 ANION GAP (test code=ANG) 10.2 mmol/L BUN (test code=05D) 13 mg/dL 7-18 CREATININE (test code=03E) 0.8 mg/dL 0.7-1.3 BUN/CREA (test code=BCR) 16 12-20 CALCIUM (test code=09D) 8.4 mg/dL 8.3-9.5 CT STONE PROTOCOL [id number] 00:06:46CT abdomen and pelvis without contrastLocation Code: [id number] HISTORY: [id number]: Abdominal painCOMPARISON: 11/25/17Technique: Helical CT of the abdomen and pelvis was performed without IV ororal contrast. Thin section axial, sagittal and coronal images were obtained.Automatic exposure control was utilized. FINDINGS:The lung bases are clear. Nonspecific mild circumferential thickening of the distal esophagus can befurther evaluated with direct visualizationThe limited noncontrast appearance of the liver, adrenal glands, kidneys,pancreas, and spleen is unremarkable. Note is made of contrast within thebilateral renal collecting system and bladder suggestive of recent contrastadministrationThe gallbladder is absentThe unopacified loops of bowel demonstrate no evidence of obstruction. Theappendix is visualized and is normal. There is no free peritoneal air or fluid. IVC filter is notedNo aggressive osseous lesions are seen. IMPRESSION:Limited e valuation of the abdomen and pelvis without oral and IV contrast;however given t hese limitations no evidence of an etiology of the patient'sabdominal pain is el icited.Nonspecific mild circumferential thickening of the distal esophagus can b efurther evaluated with direct visualizationAdditional findings as detailed abov eGLUCOMETER GLUCOSE- LAB USE [id number] 11:12:00* Test Item Value Reference Range Comments GLUCOMETER (test code=GMG) 135 mg/dL 70-100 Meter ID: [id number]: [id number] RODERICK MCKOY [id number] 08:30:00* Test Item Value Reference Range Comments Hb A1C % (test code=HBA) 6.7 % 4.2-6.3 U/S CAROTID COLOR DOPPLER [id number] 07:39:13Carotid ultrasoundIndication: Stenosis.Location [id number]: None.Technique: Grayscale and color flow Doppler images were obtained.Findings: Peak systolic velocity in the right internal carotid artery is 52.1cm. ICA/CCA systolic ratio is 0.8.Peak systolic velocity in the left internal carotid artery is 71.6 cm/s.ICA/CCA systolic ratio is 0.8.Vertebral flow is antegrade bilaterally.Impression:No evidence of hemodynamically significant stenosis.CBC (INCLUDES AUTOMATED DIFFERENTIAL) 2017-11-26 06:22:00* Test Item Value Reference Range Comments WBC (test code=WBC) 8.2 10\S\3/uL 4.5-11.0 RBC (test code=RBC) 3.42 10\S\6/uL 4.20-5.60 HGB (test code=HBG) 8.1 g/dL 14.0-18.0 HCT (test code=HCT) 27.2 % 35.0-46.0 MCV (test code=MCV) 79.5 fL 80.0-94.0 MCH (test code=MCH) 23.7 pg 27.0-31.0 MCHC (test code=MCHC) 29.8 g/dL 32.0-36.0 RDW (test code=RDW) 16.9 % 11.5-14.5 PLT (test code=PLT) 276 10\S\3/uL 130-400 MPV (test code=MPV) 9.2 fL 9.4-12.4 NEUTROP # (test code=NE#) 4.9 10\S\3/uL 2.0-8.0 LYMPH # (test code=LY#) 1.8 10\S\3/uL 1.2-4.0 MONOCYTE # (test code=MO#) 1.0 10\S\3/uL 0.0-1.1 EOSINOPH # (test code=EO#) 0.5 10\S\3/uL 0.0-0.7 BASOPHIL # (test code=BA#) 0.1 10\S\3/uL 0.0-0.3 IG # (test code=IG#) 0.03 10\S\3/uL 0.00-0.06 NRBC # (test code=NRBC#) 0.00 10\S\3/uL 0.00-0.01 NEUTROPH % (test code=NE%) 59.1 % 35.0-73.0 LYMPH % (test code=LY%) 21.5 % 20.0-55.0 MONO % (test code=MO%) 12.3 % 2.5-10.0 EOSINOPH % (test code=EO%) 6.1 % 0.0-5.0 BASOPHIL % (test code=BA%) 0.6 % 0.0-2.0 IG % (test code=IG%) 0.4 % 0.0-0.8 NRBC% (test code=NRBC%) 0.0 % 0.0-0.2 MANDIFF (test code=MDIFF) NO NO RBC MORPH (test code=RBCMOR) NORMAL LIPID [id number] 06:09:00* Test Item Value Reference Range Comments CHOLESTROL (test code=44A) 157 mg/dL 140-200 TRIGLYCERI (test code=42B) 89 mg/dL <=149 HDL (test code=83D) 35.0 mg/dL 40.0-60.0 LDL (test code=34B) 116 mg/dL <=99 CHL/HDL (test code=CHR) 4.5 0.0-3.4 CARDIAC [id number] 06:05:00* Test Item Value Reference Range Comments TROPONIN I (test code=A84) <0.015 ng/mL 0.000-0.045 CKMB (test code=A49) 3.1 ng/mL <=3.6 CPK (test code=32A) 576 IU/L 39-308 AMYLASE AND [id number] 06:04:00* Test Item Value Reference Range Comments AMYLASE (test code=10A) 40 U/L 28-100 LIPASE (test code=60A) 115 IU/L 73-393 BASIC METABOLIC [id number] 06:02:00* Test Item Value Reference Range Comments GLUCOSE (test code=06D) 113 mg/dL 75-100 SODIUM (test code=01A) 141 mmol/L 136-145 POTASSIUM (test code=01B) 4.0 mmol/L 3.6-5.1 CHLORIDE (test code=04A) 110 mmol/L 98-107 CO2 (test code=02A) 23 mmol/L 22-32 ANION GAP (test code=ANG) 12.0 mmol/L BUN (test code=05D) 16 mg/dL 7-18 CREATININE (test code=03E) 0.8 mg/dL 0.7-1.3 BUN/CREA (test code=BCR) 19 12-20 CALCIUM (test code=09D) 7.9 mg/dL 8.3-9.5 [id number] 03:16:00* Test Item Value Reference Range Comments COLOR (test code=COLU) YELLOW YELLOW CLARITY (test code=CLA) CLEAR CLEAR GLUCOSE UR (test code=UA GLUCOSE) NEGATIVE NEGATIVE BILI UR (test code=BILE) NEGATIVE NEGATIVE KETONES UR (test code=CHELSEA) NEGATIVE NEGATIVE SP GRAVITY (test code=SPGR) 1.025 1.005-1.030 PH UR (test code=PH) 6.0 4.5-8.0 PROTEIN UR (test code=PU) NEGATIVE NEGATIVE UROBIL UR (test code=UROQ) 1.0 EU/dL 0.2-1.0 NITRITE UR (test code=NITRITE) NEGATIVE NEGATIVE BLOOD UR (test code=UA BLOOD) NEGATIVE NEGATIVE LEUK ES UR (test code=LEUK) NEGATIVE NEGATIVE DILANTIN (PHENYTOIN) [id number] 00:37:00* Test Item Value Reference Range Comments PHENYTOIN (test code=68C) 0.5 ug/mL 10.0-20.0 IRON/TIBC/IRON [id number] 00:16:00* Test Item Value Reference Range Comments IRON (test code=46B) 191 ug/dL 65-175 TIBC (test code=79B) 383 ug/dL 250-400 FE% SAT (test code=ISAT) 49.9 % 20.0-50.0 BRAIN NATRIURETIC [id number] 00:01:00* Test Item Value Reference Range Comments proBNP (test code=PBNP) 42 pg/mL 0-125 CARDIAC [id number] 23:54:00* Test Item Value Reference Range Comments TROPONIN I (test code=A84) <0.015 ng/mL 0.000-0.045 CKMB (test code=A49) 2.9 ng/mL <=3.6 CPK (test code=32A) 597 IU/L 39-308 CT ABDOMEN AND PELVIS W/O [id number] 22:50:02Exam: CT abdomen and pelvis without contrast.Location: D4.History: [id number]: Abdominal painTechnique: Unenhanced spiral slices were taken from the domes of the diaphragm,through the pubic symphysis. Coronal reformations were performed. One or moreof the following radiation dose reduction techniques was used: automatedexposure control, adjustment of mA and/or KV according to patient size, and/orutilization of iterative reconstruction technique.Findings:The liver is of normal, homogeneous density. No mass is seen. The intra-andextrahepatic biliary tree is normal. The gallbladder has been removed.The pancreas is normal. The pancreatic duct is normal in caliber. The spleenand adrenal glands are normal in size and s hape.A nonobstructing 4 mm right renal calculus is present. The kidneys areother rhodes unremarkable. No left nephrolithiasis, perinephric fluid collectionsor hydr onephrosis is seen.The large and small intestine are normal in caliber. The eliecer endix is normal. No inflammatory change is seen.No lymphadenopathy or free fluid is found in the abdomen or the pelvis. An IVCfilter is in place.The pelvic stru ctures are unremarkable.The lung bases are clear.No incidental abdominal finding s are seen.Impression:1. No acute abdominal headaches.2. Status post cholecystec chetna.3. Right nephrolithiasis.GLUCOMETER GLUCOSE- LAB USE [id number] 20:25:00* Test Item Value Reference Range Comments GLUCOMETER (test code=GMG) 120 mg/dL 70-100 CLEANED METERMeter ID: [id number]: [id number] JHOAN LANIER TROPONIN [id number] 17:16:00* Test Item Value Reference Range Comments TROPONIN I (test code=A84) <0.015 ng/mL 0.000-0.045 [id number] 17:15:00* Test Item Value Reference Range Comments CPK (test code=32A) 581 IU/L 39-308 COMPREHENSIVE METABOLIC [id number] 17:15:00* Test Item Value Reference Range Comments GLUCOSE (test code=06D) 126 mg/dL 75-100 SODIUM (test code=01A) 139 mmol/L 136-145 POTASSIUM (test code=01B) 4.4 mmol/L 3.6-5.1 CHLORIDE (test code=04A) 107 mmol/L 98-107 CO2 (test code=02A) 22 mmol/L 22-32 ANION GAP (test code=ANG) 14.4 mmol/L BUN (test code=05D) 21 mg/dL 7-18 CREATININE (test code=03E) 1.0 mg/dL 0.7-1.3 BUN/CREA (test code=BCR) 22 12-20 CALCIUM (test code=09D) 8.5 mg/dL 8.3-9.5 BILI TOTAL (test code=11A) 0.2 mg/dL 0.2-1.0 PROTEIN (test code=07D) 7.1 g/dL 6.4-8.2 ALBUMIN (test code=08D) 3.2 g/dL 3.5-4.8 GLOBULIN (test code=GLB) 3.9 g/dL 1.5-3.8 ALB/GLOB (test code=AGRR) 0.8 1.0-2.6 ALK PHOS (test code=35A) 84 IU/L 42-121 AST (test code=30A) 28 IU/L <=42 ALT (test code=31A) 20 IU/L <=78 CBC (INCLUDES AUTOMATED DIFFERENTIAL)2017-11-25 17:00:00* Test Item Value Reference Range Comments WBC (test code=WBC) 9.8 10\S\3/uL 4.5-11.0 RBC (test code=RBC) 3.57 10\S\6/uL 4.20-5.60 HGB (test code=HBG) 8.4 g/dL 14.0-18.0 HCT (test code=HCT) 27.8 % 35.0-46.0 MCV (test code=MCV) 77.9 fL 80.0-94.0 MCH (test code=MCH) 23.5 pg 27.0-31.0 MCHC (test code=MCHC) 30.2 g/dL 32.0-36.0 RDW (test code=RDW) 16.7 % 11.5-14.5 PLT (test code=PLT) 301 10\S\3/uL 130-400 MPV (test code=MPV) 9.0 fL 9.4-12.4 NEUTROP # (test code=NE#) 7.5 10\S\3/uL 2.0-8.0 LYMPH # (test code=LY#) 1.1 10\S\3/uL 1.2-4.0 MONOCYTE # (test code=MO#) 1.0 10\S\3/uL 0.0-1.1 EOSINOPH # (test code=EO#) 0.2 10\S\3/uL 0.0-0.7 BASOPHIL # (test code=BA#) 0.0 10\S\3/uL 0.0-0.3 IG # (test code=IG#) 0.05 10\S\3/uL 0.00-0.06 NRBC # (test code=NRBC#) 0.00 10\S\3/uL 0.00-0.01 NEUTROPH % (test code=NE%) 76.4 % 35.0-73.0 LYMPH % (test code=LY%) 11.1 % 20.0-55.0 MONO % (test code=MO%) 9.9 % 2.5-10.0 EOSINOPH % (test code=EO%) 1.7 % 0.0-5.0 BASOPHIL % (test code=BA%) 0.4 % 0.0-2.0 IG % (test code=IG%) 0.5 % 0.0-0.8 NRBC% (test code=NRBC%) 0.0 % 0.0-0.2 MANDIFF (test code=MDIFF) NO NO RBC MORPH (test code=RBCMOR) NORMAL CT CERVICAL SPINE W/O [id number] 15:03:17CT cervical spine without contrastLocation Code: E2Nqgxlxsc history: Traumatic injuryCOMPARISON: None.TECHNIQUE: Helical CT of the cervical spine was performed without contrast andsubmitted as thin section axial, coronal, and sagittally oriented images.Automatic exposure control was utilized. Total DLP: 709 mGycmFINDINGS: There is no acute fracture or malalignment of the cervical spine.Clot within the anterior arch of C1 is stable. The soft tissues areunremarkable.IMPRESSION: No acute abnormality.CT HEAD W/O [id number] 15:01:16CT brain without contrast.Location code: C6HNMUPDQT HISTORY: [id number]: Traumatic injury COMPARISON: None.TECHNIQUE: Routine unenhanced axial imaging of the brain was performed. Coronal and sagittal reformatted images were obtained, as well. Automaticexposure control was utilized. Total DLP: 891 mGycmFINDINGS: There is no acute intracranial hemorrhage or extra-axial collection.There is no hyd rocephalus, midline shift, or space occupying mass. Ahumada-whitematter differentia tion is well preserved with no definite CT evidence of anacute infarct. The cr anial vault and skull base are intact. The paranasal sinuses and mastoidair alize ls are pneumatized and well aerated. IMPRESSION: No acute intracranial abnorma lity.XR Chest 1 View [id number] 10:08:22Patient: FELECIA ASTORGA Date/Time11/18/2017 10:05 CDTReason for ExamChest painReportLOCATION: B41RXCAC 1 VIEWINDICATION: Chest PainCOMPARISON: Chest radiograph from 10/31/2017FINDINGS:The lungs are clear and well inflated. No pleural effusion or pneumothorax. The cardiomediastinal silhouette is unremarkable. The bony thorax is intact.IMPRESSION:No acute cardio prominent findings. Final Dictated by: MD Cruz Eniola FDictated DT/TM: 11/18/2017 10:07 amSigned by: MD Cruz Eniola FSigned (Electronic Signature): 11/18/2017 10:08 amXR Chest 1 View Frontal 2017-10-31 01:28:49Patient: FELECIA ASTORGA Date/Time10/31/2017 01:02 CDTReason for ExamChest painReportXR Chest 1 View FrontalLocation:M9Fftof hours services provided 10/31/2017 1:28 AMIndication:Chest painComparison:09/15/2017Findings:The lungs are equally and symmetrically inflated. The trachea is midline. The cardiac silhouette is normal in size. No acute bony abnormality.Impression: No acute cardiopulmonary disease. Final Dictated by: MD Ascencio Dennis PDictated DT/TM: 10/31/2017 1:28 amSigned by: MD Ascencio Dennis PSigned (Electronic Signature): 10/31/2017 1:28 amXR FOOT RIGHT COMPLETE 3 VIEWS 2017-10-30 19:13:55Examination: Right foot seriesLocation code: M5Uogemdblep: NoneDiscussion:Clinical history is remarkable for trauma, possible foreign body. Three viewsof the foot were obtained. The osseous structures are well mineralized. Thereis no evidence to suggest the presence of fracture or dislocation. Noradiopaque foreign bodies are seen within the soft tissues.Impression:No acute bony abnormality.XR CHEST 1 VIEW PORTABLE *WW* 2017-10-16 02:33:58Xray Chest 1 viewsLocation Code: R76Kbgchgqbsq: 07/21/17CLINICAL HISTORY: Chest pain.Findings: The cardiomediastinal silhouette is within normal limits. No evidence ofpulmonary edema, pleural effusion or consolidation is visualized.IMPRESSION: No plain radiographic evidence of an acute cardiopulmonary abnormalityHemoglobin A1c/Hemoglobin.total in Blood 2017-09-20 07:05:00* Test Item Value Reference Range Comments Hemoglobin A1c/Hemoglobin.total in Blood (test botn=4557-0) 6.2 % 4.2-6.3 [facility] Met[facility] Fijie7089-34-07 06:34:00* Test Item Value Reference Range Comments Serum or plasma sodium measurement (moles/volume) (test fgbz=4755-5) 141 mmol/L 136-145 Potassium [Moles/volume] in Serum or Plasma (test kmwl=6588-2) 4.0 mmol/L 3.5-5.1 Chloride [Moles/volume] in Serum or Plasma (test nkvi=0814-3) 109 mmol/L 98-107 Carbon dioxide, total [Moles/volume] in Serum or Plasma (test qpyc=8829-9) 27 mmol/L 21-32 Glucose [Mass/volume] in Serum or Plasma (test lobt=2191-5) 90 mg/dL 74-106 Urea nitrogen [Mass/volume] in Serum or Plasma (test sies=5585-1) 12 mg/dL 7-18 Creatinine [Mass/volume] in Serum or Plasma (test pljh=5132-7) 0.70 mg/dL 0.55-1.3 Estimated glomerular filtration rate (GFR) determination (test josc=35314-0) >90 mL =/>90 FOR CHRONIC KIDNEY DISEASE: GFR STAGE DESCRIPTION=/>90 STAGE 1 NORMAL--OR-- MINIMAL KIDNEY DAMAGE WITH NORMAL GFR 60-89 STAGE 2 MILD DECREASE IN GFR 30-59 STAGE 3 MODERATE DECREASE IN GFR 15-29 STAGE 4 SEVERE DECREASE IN GFR <15 STAGE 5 KIDNEY FAILURE The Glomerular Filtration Rate (GFR) has been calculated using the IDMS-Traceable MDRD Study Equation. Calcium [Mass/volume] in Serum or Plasma (test tedp=20320-6) 8.3 mg/dL 8.5-10.1 Primary Language EnglishLipid gwbyvxq3996-48-01 06:34:00* Test Item Value Reference Range Comments Cholesterol [Mass/volume] in Serum or Plasma (test pded=8620-6) 122 mg/dL <200 Triglyceride [Mass/volume] in Serum or Plasma (test fhsy=9531-5) 96 mg/dL <150 Cholesterol in HDL [Mass/volume] in Serum or Plasma (test vtct=9368-3) 35 mg/dL 40-60 Serum or plasma cholesterol in LDL measurement by calculation (mass/volume) (test ibhe=95511-4) 68 <130 This LDL is a calculated result; a more accurate analysis can be performed using the direct LDL methodology. Total cholesterol/cholesterol in HDL (percentile) (test ockk=1509-3) 3.49 LIPID RISK RATIOS: 1/2 AVERAGE AVERAGE 2X AVERAGE 3X AVERAGE ------- MALE 3.43 4.97 9.55 23.39 FEMALE 3.27 4.44 7.05 11.04 Primary Language EnglishTroponin I.cardiac [Mass/volume] in Serum or Plasma 2017-09-20 06:30:00* Test Item Value Reference Range Comments Troponin I.cardiac [Mass/volume] in Serum or Plasma (test enfz=60675-5) 0.02 ng/mL 0.0-0.045 Primary Language EnglishComplete blood count (CBC) with automated white blood cell (WBC) outillfcxwle6986-03-66 06:23:00* Test Item Value Reference Range Comments White blood cell count (test pevp=XXH6265) 7.6 4.3-10.9 Blood erythrocytes count (number/volume) (test oblh=33938-1) 3.78 M/ul 4.33-5.43 Hemoglobin measurement (test lqtk=EZT8718) 9.7 g/dL 13.6-17.9 Blood hematocrit (volume fraction) (test keoc=41937-7) 29.9 % 39.6-49.0 MCV (test ijsg=42236-9) 79.0 fL 80-100 MCH (test mwar=62450-1) 25.7 pg 27.0-35.0 MCHC (test code=MCHC) 32.6 g/dL 32.0-36.0 Platelets (test code=PLT) 264 152-406 Red Cell Distribution Width (test code=RDW) 19.7 % 12.1-15.2 Blood platelet mean volume (test opqs=73014-7) 7.2 fL 7.6-11.3 Neutrophils % (test code=GRAYSON%) 58.0 % 41.7-73.7 Lymphocytes/leuk NFr Bld (test ffbo=31924-7) 18.8 % 15.3-44.8 Monocyte percentage (test aiqb=7309-4) 10.1 % 3.3-12.3 Eosinophil % (test muqk=265-1) 12.2 % 0-4.4 Basophil % (test yyyn=52613-6) 0.9 % 0-1.3 Absolute neutrophil count (test yyka=550-4) 4.4 1.8-8.0 Absolute lymphocyte count (test ywmt=02650-6) 1.4 0.7-4.9 Absolute monocyte count (test crra=402-1) 0.8 0.1-1.3 Absolute Eosinophils (test code=EOA) 0.9 0-0.5 Absolute Basophils (test code=BASA) 0.1 0-0.5 Primary Language EnglishTroponin I.cardiac [Mass/volume] in Serum or Plasma 2017-09-19 23:14:00* Test Item Value Reference Range Comments Troponin I.cardiac [Mass/volume] in Serum or Plasma (test omek=50285-8) <0.02 ng/mL 0.0-0.045 Primary Language [facility] Metabolic Rskgx2230-06-79 16:22:00* Test Item Value Reference Range Comments Serum or plasma sodium measurement (moles/volume) (test prcs=2955-3) 140 mmol/L 136-145 Potassium [Moles/volume] in Serum or Plasma (test thip=2148-5) 4.3 mmol/L 3.5-5.1 Chloride [Moles/volume] in Serum or Plasma (test ceik=7551-3) 106 mmol/L 98-107 Carbon dioxide, total [Moles/volume] in Serum or Plasma (test htya=7508-5) 25 mmol/L 21-32 Glucose [Mass/volume] in Serum or Plasma (test oiuv=8994-6) 104 mg/dL 74-106 Urea nitrogen [Mass/volume] in Serum or Plasma (test vkur=2679-7) 16 mg/dL 7-18 Creatinine [Mass/volume] in Serum or Plasma (test vgru=4297-9) 0.80 mg/dL 0.55-1.3 Estimated glomerular filtration rate (GFR) determination (test laay=71828-2) >90 mL =/>90 FOR CHRONIC KIDNEY DISEASE: GFR STAGE DESCRIPTION=/>90 STAGE 1 NORMAL--OR-- MINIMAL KIDNEY DAMAGE WITH NORMAL GFR 60-89 STAGE 2 MILD DECREASE IN GFR 30-59 STAGE 3 MODERATE DECREASE IN GFR 15-29 STAGE 4 SEVERE DECREASE IN GFR <15 STAGE 5 KIDNEY FAILURE The Glomerular Filtration Rate (GFR) has been calculated using the IDMS-Traceable MDRD Study Equation. Calcium [Mass/volume] in Serum or Plasma (test gvwl=67299-8) 8.9 mg/dL 8.5-10.1 Test Ordered to Rule Out VTE/DVT? NLiver (Hepatic) Gpbdytpf8708-62-86 16:22:00* Test Item Value Reference Range Comments Aspartate aminotransferase [Enzymatic activity/volume] in Serum or Plasma by With P-5 (test aemq=30916-1) 19 U/L 15-37 Alanine aminotransferase [Enzymatic activity/volume] in Serum or Plasma by With P-5'- (test cfks=0401-7) 19 U/L 12-78 Alkaline phosphatase [Enzymatic activity/volume] in Serum or Plasma (test odym=9218-4) 92 U/L 45-117 Bilirubin.total [Mass/volume] in Serum or Plasma (test crwv=6700-1) 0.4 mg/dL 0.2-1.0 Bilirubin.direct [Mass/volume] in Serum or Plasma (test lomp=5927-6) <0.1 mg/dL 0-0.2 Protein [Mass/volume] in Serum or Plasma (test owdg=9460-7) 7.8 g/dL 6.4-8.2 Albumin [Mass/volume] in Serum or Plasma by Bromocresol purple (BCP) dye binding meth (test wiyi=74070-5) 3.4 g/dL 3.4-5.0 Globulin (test code=GLOB) 4.4 g/dL 2.3-3.5 Albumin/Globulin Ratio (test code=A/G) 0.8 1.1-1.8 Test Ordered to Rule Out VTE/DVT? NCreatine kinase [Enzymatic activity/volume] in Serum or Sruecw2418-18-99 16:22:00* Test Item Value Reference Range Comments Creatine kinase [Enzymatic activity/volume] in Serum or Plasma (test lhuv=7743-0) 210 U/L 39-308 Test Ordered to Rule Out VTE/DVT? NCreatine kinase.MB [Mass/volume] in Serum or Edrjif8634-70-68 16:22:00* Test Item Value Reference Range Comments Creatine kinase.MB [Mass/volume] in Serum or Plasma (test irwl=03846-3) 1.4 ng/mL 0.3-3.6 Test Ordered to Rule Out VTE/DVT? NNatriuretic peptide.B prohormone N-Terminal [Mass/volume] in Serum or Rfxjad7001-00-10 16:22:00* Test Item Value Reference Range Comments Natriuretic peptide.B prohormone N-Terminal [Mass/volume] in Serum or Plasma (test zxld=99829-1) 12 pg/mL <125 Test Ordered to Rule Out VTE/DVT? NMagnesium [Mass/volume] in Serum or Plasma 2017-09-19 16:22:00* Test Item Value Reference Range Comments Magnesium [Mass/volume] in Serum or Plasma (test zjex=74248-1) 1.9 mg/dL 1.8-2.4 Test Ordered to Rule Out VTE/DVT? NLipase [Enzymatic activity/volume] in Serum or Mlexej4444-36-15 16:22:00* Test Item Value Reference Range Comments Lipase [Enzymatic activity/volume] in Serum or Plasma (test iwwj=3033-2) 97 U/L 73-393 Test Ordered to Rule Out VTE/DVT? NTroponin I.cardiac [Mass/volume] in Serum or Agujck1779-21-83 16:22:00* Test Item Value Reference Range Comments Troponin I.cardiac [Mass/volume] in Serum or Plasma (test soet=96753-9) <0.02 ng/mL 0.0-0.045 Test Ordered to Rule Out VTE/DVT? NProthrombin time (PT) with international normalized ratio (INR)2017-09-19 16:21:00* Test Item Value Reference Range Comments PT Prothrombin Time (test code=PROTIME) 12.9 s 9.5-12.5 INR in Blood by Coagulation assay (test xjcn=20605-3) 1.09 Monitor pts using INR value (not prothrombin time) INR Coumadin Therapy: Low Range (prophylaxis) 2.0-3.0 High Range (high risk of clot formation) 2.5-3.5 Test Ordered to Rule Out VTE/DVT? N Test Ordered to Rule Out VTE/DVT? NPTT, Activated Partial Rdxqtk8299-95-22 16:21:00* Test Item Value Reference Range Comments PTT, Activated Partial Thromb (test code=PTT) 32.2 s 24.3-36.9 Test Ordered to Rule Out VTE/DVT? N Test Ordered to Rule Out VTE/DVT? NComplete blood count (CBC) with automated white blood cell (WBC) ynzwaylntclr0558-78-10 16:07:00* Test Item Value Reference Range Comments White blood cell count (test wyaa=HQT6174) 8.8 4.3-10.9 Blood erythrocytes count (number/volume) (test yzpd=95546-4) 4.23 M/ul 4.33-5.43 Hemoglobin measurement (test cymo=PUT6162) 10.8 g/dL 13.6-17.9 Blood hematocrit (volume fraction) (test qpjz=98915-6) 33.5 % 39.6-49.0 MCV (test pczz=85838-3) 79.3 fL 80-100 MCH (test mztp=96472-4) 25.6 pg 27.0-35.0 MCHC (test code=MCHC) 32.3 g/dL 32.0-36.0 Platelets (test code=PLT) 299 152-406 Red Cell Distribution Width (test code=RDW) 19.4 % 12.1-15.2 Blood platelet mean volume (test ewpv=59660-5) 7.3 fL 7.6-11.3 Neutrophils % (test code=GRAYSON%) 75.0 % 41.7-73.7 Lymphocytes/leuk NFr Bld (test tavk=22564-8) 12.3 % 15.3-44.8 Monocyte percentage (test tkfa=0264-3) 7.1 % 3.3-12.3 Eosinophil % (test tjzo=335-0) 5.3 % 0-4.4 Basophil % (test wdxt=55665-5) 0.3 % 0-1.3 Absolute neutrophil count (test dtuk=901-3) 6.6 1.8-8.0 Absolute lymphocyte count (test jjkt=42115-2) 1.1 0.7-4.9 Absolute monocyte count (test bxrv=178-0) 0.6 0.1-1.3 Absolute Eosinophils (test code=EOA) 0.5 0-0.5 Absolute Basophils (test code=BASA) 0.0 0-0.5 Chest Single Msze5856-23-84 15:01:00[facility] [place] [id number] [facility] REPORT Name: FELECIA ASTORGA Acct Number: [id number] :1960 Age:57 Sex:M Ord Phys: Basil Ugarte MD Unit Number: [id number] [facility] [address]: U Status: ADM IN [place] [id number] Exam Date: 09/19/17 EXAM DESCRIPTION: RAD - Chest Single View - 09/19/2017 2:42 pm CLINICAL HISTORY: CHEST PAIN Chest pain. COMPARISON: Chest Single View dated 07/19/2016; Chest Single View dated 03/03/2016; Chest Single View dated 10/04/2015; CHEST SINGLE VIEW dated 04/28/2015 FINDINGS: Portable technique limits examination quality. The lungs are grossly clear. The heart is normal in size. No displaced fractures. IMPRESSION: No acute intrathoracic process suspected. Signed By: Robbin Gomez MD Signed AT: 09/19/17 1501 XR Chest 1 View Frontal 2017-09-15 01:48:45Patient: FELECIA ASTORGA Date/Time09/15/2017 01:28 CDTReason for ExamChest painReportXR Chest 1 View Frontal, 09/15/2017 1:20 AMReason For Examination: Chest painComparison: August 04, 2017Location: G34IrciqvcjFZOIO:No consolidation or definite pulmonary edema.PLEURA: No pleural effusionsCARDIOMEDIASTINUM:unremarkableIMPRESSION:No plain film evidence of an acute cardiopulmonary abnormality. Final Dictated by: MD Elvin, SaniaDictated DT/TM: 09/15/2017 1:47 amSigned by: MD Elvin, SaniaSigned (Electronic Signature): 09/15/2017 1:48 amCBC W/PLT COUNT & AUTO JKVHJPNPSNJA5659-67-19 01:34:00* Test Item Value Reference Range Comments WHITE BLOOD CELL COUNT (BEAKER) (test oakq=547) 7.7 K/ L 4.0-10.0 RED BLOOD CELL COUNT (BEAKER) (test zhmo=204) 3.91 M/ L 4.20-5.80 HEMOGLOBIN (BEAKER) (test sqnr=827) 9.9 GM/DL 13.0-16.8 HEMATOCRIT (BEAKER) (test riwy=347) 31.0 % 40.0-50.0 MEAN CORPUSCULAR VOLUME (BEAKER) (test qxbb=803) 79.3 fL 82.0-98.0 MEAN CORPUSCULAR HEMOGLOBIN (BEAKER) (test vlmv=015) 25.4 pg 27.0-33.0 MEAN CORPUSCULAR HEMOGLOBIN CONC (BEAKER) (test jbfb=887) 32.0 GM/DL 32.0-36.0 RED CELL DISTRIBUTION WIDTH (BEAKER) (test gbyf=529) 20.9 % 10.3-14.2 PLATELET COUNT (BEAKER) (test nwfc=178) 251 K/CU MM 150-430 MEAN PLATELET VOLUME (BEAKER) (test cgcj=129) 7.4 fL 6.5-10.5 NUCLEATED RED BLOOD CELLS (BEAKER) (test upzt=160) 0 /100 WBC 0-0 NEUTROPHILS RELATIVE PERCENT (BEAKER) (test ocdq=194) 66 % LYMPHOCYTES RELATIVE PERCENT (BEAKER) (test kzpm=332) 18 % MONOCYTES RELATIVE PERCENT (BEAKER) (test nzhn=356) 8 % EOSINOPHILS RELATIVE PERCENT (BEAKER) (test aivl=927) 8 % BASOPHILS RELATIVE PERCENT (BEAKER) (test oaot=298) 0 % NEUTROPHILS ABSOLUTE COUNT (BEAKER) (test xirs=009) 5.10 K/ L 1.80-8.00 LYMPHOCYTES ABSOLUTE COUNT (BEAKER) (test vukj=494) 1.40 K/ L 1.48-4.50 MONOCYTES ABSOLUTE COUNT (BEAKER) (test slls=633) 0.60 K/ L 0.00-1.30 EOSINOPHILS ABSOLUTE COUNT (BEAKER) (test pugn=592) 0.60 K/ L 0.00-0.50 BASOPHILS ABSOLUTE COUNT (BEAKER) (test vquh=823) 0.00 K/ L 0.00-0.20 (MANUAL DIFFERENTIAL)2017-09-02 01:34:00* Test Item Value Reference Range Comments TOTAL COUNTED (BEAKER) (test fjla=8519) WBC MORPHOLOGY (BEAKER) (test xbjp=249) Normal LARGE PLT(BEAKER) (test baog=5388) Present ANISOCYTOSIS (BEAKER) (test ynbf=751) 2+ moderate HYPOCHROMIA (BEAKER) (test kohm=269) 1+ few MICROCYTES (BEAKER) (test lphn=528) 1+ few COMPREHENSIVE METABOLIC [id number] 01:24:00* Test Item Value Reference Range Comments TOTAL PROTEIN (BEAKER) (test fyga=527) 6.5 gm/dL 6.0-8.5 ALBUMIN (BEAKER) (test mdlo=2692) 3.3 g/dL 3.5-5.0 ALKALINE PHOSPHATASE (BEAKER) (test iaef=462) 72 U/L 30-115 BILIRUBIN TOTAL (BEAKER) (test oljn=810) 0.2 mg/dL 0.1-1.2 SODIUM (BEAKER) (test qfdw=304) 139 meq/L 135-148 POTASSIUM (BEAKER) (test jkch=535) 3.9 meq/L 3.6-5.5 CHLORIDE (BEAKER) (test rtbv=242) 110 meq/L 98-106 CO2 (BEAKER) (test wpva=269) 17 meq/L 20-29 BLOOD UREA NITROGEN (BEAKER) (test dykj=743) 12 mg/dL 10-26 CREATININE (BEAKER) (test kntr=611) 0.71 mg/dL 0.50-1.20 GLUCOSE RANDOM (BEAKER) (test qxui=068) 108 mg/dL 70-110 CALCIUM (BEAKER) (test vnil=099) 8.7 mg/dL 8.5-10.5 AST (SGOT) (BEAKER) (test cyeh=381) 18 U/L 5-40 ALT (SGPT) (BEAKER) (test dphx=942) 17 U/L 5-50 EGFR (BEAKER) (test aupd=9735) 114 mL/min/1.73 sq m ESTIMATED GFR IS NOT ACCURATE CREATININE CLEARANCE IN PREDICTING GLOMERULAR FILTRATION RATE. ESTIMATED GFR IS NOT APPLICABLE FOR DIALYSIS PATIENTS. [id number] 01:17:00* Test Item Value Reference Range Comments LIPASE (BEAKER) (test aain=664) 14 U/L 6-51 PROTHROMBIN TIME/[id number] 01:11:00* Test Item Value Reference Range Comments PROTIME (BEAKER) (test hrqr=650) 10.4 seconds 9.3-12.0 INR (BEAKER) (test saun=850) 1.0 <=5.9 RECOMMENDED COUMADIN/WARFARIN INR THERAPY RANGESSTANDARD DOSE: 2.0 - 3.0 Inclu katarina: PROPHYLAXIS for venous thrombosis, systemic embolization; TREATMENT for [place] ous thrombosis and/or pulmonary embolus.HIGH RISK: Target INR is 2.5-3.5 for pat ients with mechanical heart valves.OCCULT BLOOD, [id number] 23:42:00* Test Item Value Reference Range Comments FECAL OCCULT BLOOD (BEAKER) (test vujv=900) Positive Negative RAD, KNEE, 3 VIEWS, [id number] 15:01:00Reason for exam:->knee painFINAL REPORT Right knee, three images HISTORY: Pain COMPARISON: None IMPRESSION:No fracture. No dislocation. No joint effusion. No significant degenerative findings. Signed: Barbra Alvarez MDReport Verified Date/Time: 08/24/2017 15:01:58 Reading Location: [address] Ortho Consult Reading Room [id number] 04:48:00* Test Item Value Reference Range Comments PHOSPHORUS (BEAKER) (test dqub=902) 4.5 mg/dL 2.5-4.5 [id number] 04:48:00* Test Item Value Reference Range Comments MAGNESIUM (BEAKER) (test xxhj=596) 1.8 mg/dL 1.5-3.0 BASIC METABOLIC [id number] 04:48:00* Test Item Value Reference Range Comments SODIUM (BEAKER) (test lorp=499) 138 meq/L 135-148 POTASSIUM (BEAKER) (test glxl=231) 4.1 meq/L 3.5-5.5 CHLORIDE (BEAKER) (test dris=886) 108 meq/L 98-106 CO2 (BEAKER) (test hrem=512) 23 meq/L 20-31 BLOOD UREA NITROGEN (BEAKER) (test urzv=346) 16 mg/dL 10-26 CREATININE (BEAKER) (test jwlm=601) 0.77 mg/dL 0.50-1.20 GLUCOSE RANDOM (BEAKER) (test tbts=936) 105 mg/dL 70-110 CALCIUM (BEAKER) (test xtam=103) 8.7 mg/dL 8.5-10.5 EGFR (BEAKER) (test plbt=6746) 103 mL/min/1.73 sq m ESTIMATED GFR IS NOT ACCURATE CREATININE CLEARANCE IN PREDICTING GLOMERULAR FILTRATION RATE. ESTIMATED GFR IS NOT APPLICABLE FOR DIALYSIS PATIENTS. TROPONIN [id number] 04:47:00* Test Item Value Reference Range Comments TROPONIN I (BEAKER) (test afki=599) < ng/mL 0.00-0.15 Troponin I (TnI) levels must be interpreted in the context of the presenting sym ptoms and the clinical findings. Elevated TnI levels indicate myocardial damage, but are not specific for ischemic heart disease. Elevated TnI levels are seen i n patients with other cardiac conditions (including myocarditis and congestive h eart failure), and slight TnI elevations occur in patients with other conditions , including sepsis, renal failure, acidosis, acute neurological disease, and per sistent tachyarrhythmia.HEMOGLOBIN [id number] 04:24:00* Test Item Value Reference Range Comments HEMOGLOBIN A1C (BECKIEAKER) (test vgne=110) 6.0 % 4.3-6.1 TROPONIN [id number] 00:06:00* Test Item Value Reference Range Comments TROPONIN I (BEAKER) (test nsqy=596) < ng/mL 0.00-0.15 Troponin I (TnI) levels must be interpreted in the context of the presenting sym ptoms and the clinical findings. Elevated TnI levels indicate myocardial damage, but are not specific for ischemic heart disease. Elevated TnI levels are seen i n patients with other cardiac conditions (including myocarditis and congestive h eart failure), and slight TnI elevations occur in patients with other conditions , including sepsis, renal failure, acidosis, acute neurological disease, and per sistent tachyarrhythmia.POCT-GLUCOSE [id number] 21:20:00* Test Item Value Reference Range Comments POC-GLUCOSE METER (RUPERT) (test utib=0201) 172 mg/dL 70-[address] [facility] [address] [facility] [address] VENOUS DOPPLER LEG, [id number] 19:51:00Reason for exam:->r/o DVTFINAL REPORT VENOUS DOPPLER LEG, RIGHT INDICATION: r/o DVT COMPARISON: None TECHNIQUE: Real time marr-scale, color, and spectral Doppler imaging of the bilateral lower extremity venous system. FINDINGS: Thigh: Normal compressibility and color Doppler flow within the common femoral, superficial f emoral, and popliteal veins bilaterally. Calf: Normal compressibility is demonst rated within the peroneal and posterior tibial veins bilaterally. Additional fin dings: None. IMPRESSION: No Doppler or grayscale evidence for deep venous throm bosis bilaterally. Signed: JR Flores Robert MDReport Verified Date/Time: 08/23/2017 19:51:03 Reading Location: [address] Reading Room Lower Ext Venous Duplex [id number] 20:07:26Patient: FELECIA ASTORGA Date/Time08/04/2017 19:50 CDTReason for ExamExtremity EdemaReportINDICATION: Extremity edema.STUDY: Duplex venous ultrasound examination of the right leg.Site: R 16COMPARISON: NoneFINDINGS/TECHNIQUE:Grayscale, color Doppler and spectral images of the right lower extremity venous system was performed.The common femoral, femoral (proximal, mid, and distal aspects), popliteal, anterior tibial and posterior tibial pedis veins are without evidence of a filling defect to suggest venous thrombosis. The common femoral, femoral, and popliteal veins are compressible. Spectral images demonstrate normal augmentation.IMPRESSION:No evidence of right lower extremity DVT within the visualized portions of the deep veins. Final Dictated by: MD Nicolas Robert KDictated DT/TM: 08/04/2017 8:06 pmSigned by: MD Nicolas Robert KSigned (Electronic Signature): 08/04/2017 8:07 pmXR Chest 1 View [id number] 18:48:40Patient: FELECIA ASTORGA Date/Time08/04/2017 18:32 CDTReason for Examextremity swelling;Other (please specify)ReportSTUDY: Chest radiographHISTORY: Swelling.COMPARISON: 02/02/2017TECHNIQUE: Frontal view of the chest.SITE: [id number]:The cardiac silhouette is unremarkable. There is no pleural effusion, pneumothorax or focal consolidation.No acute osseous abnormalities are identified.IMPRESSION:No radiographic evidence of acute pulmonary abnormality. Final Dictated by: MD Nicolas Robert KDictated DT/TM: 08/04/2017 6:48 pmSigned by: MD Nicolas Robert KSigned (Electro anastasiya Signature): 08/04/2017 6:48 pmBASIC METABOLIC [id number] 04:41:00* Test Item Value Reference Range Comments GLUCOSE (test code=06D) 126 mg/dL 75-100 SODIUM (test code=01A) 141 mmol/L 136-145 POTASSIUM (test code=01B) 3.2 mmol/L 3.6-5.1 CHLORIDE (test code=04A) 108 mmol/L 98-107 CO2 (test code=02A) 25 mmol/L 22-32 ANION GAP (test code=ANG) 11.2 mmol/L BUN (test code=05D) 6 mg/dL 7-18 CREATININE (test code=03E) 0.6 mg/dL 0.7-1.3 BUN/CREA (test code=BCR) 9 12-20 CALCIUM (test code=09D) 7.8 mg/dL 8.3-9.5 BASIC METABOLIC [id number] 04:46:00* Test Item Value Reference Range Comments GLUCOSE (test code=06D) 156 mg/dL 75-100 SODIUM (test code=01A) 141 mmol/L 136-145 POTASSIUM (test code=01B) 3.3 mmol/L 3.6-5.1 CHLORIDE (test code=04A) 108 mmol/L 98-107 CO2 (test code=02A) 24 mmol/L 22-32 ANION GAP (test code=ANG) 12.3 mmol/L BUN (test code=05D) 8 mg/dL 7-18 CREATININE (test code=03E) 0.6 mg/dL 0.7-1.3 BUN/CREA (test code=BCR) 12 12-20 CALCIUM (test code=09D) 7.6 mg/dL 8.3-9.5 CBC (INCLUDES AUTOMATED DIFFERENTIAL)2017-07-31 04:06:00* Test Item Value Reference Range Comments WBC (test code=WBC) 8.2 10\S\3/uL 4.5-11.0 RBC (test code=RBC) 3.42 10\S\6/uL 4.20-5.60 HGB (test code=HBG) 8.3 g/dL 14.0-18.0 HCT (test code=HCT) 27.9 % 35.0-46.0 MCV (test code=MCV) 81.6 fL 80.0-94.0 MCH (test code=MCH) 24.3 pg 27.0-31.0 MCHC (test code=MCHC) 29.7 g/dL 32.0-36.0 RDW (test code=RDW) 20.4 % 11.5-14.5 PLT (test code=PLT) 290 10\S\3/uL 130-400 MPV (test code=MPV) 9.2 fL 9.4-12.4 NEUTROP # (test code=NE#) 5.4 10\S\3/uL 2.0-8.0 LYMPH # (test code=LY#) 1.2 10\S\3/uL 1.2-4.0 MONOCYTE # (test code=MO#) 0.7 10\S\3/uL 0.0-1.1 EOSINOPH # (test code=EO#) 0.8 10\S\3/uL 0.0-0.7 BASOPHIL # (test code=BA#) 0.0 10\S\3/uL 0.0-0.3 IG # (test code=IG#) 0.08 10\S\3/uL 0.00-0.06 NRBC # (test code=NRBC#) 0.00 10\S\3/uL 0.00-0.01 NEUTROPH % (test code=NE%) 65.2 % 35.0-73.0 LYMPH % (test code=LY%) 14.6 % 20.0-55.0 MONO % (test code=MO%) 8.8 % 2.5-10.0 EOSINOPH % (test code=EO%) 9.9 % 0.0-5.0 BASOPHIL % (test code=BA%) 0.5 % 0.0-2.0 IG % (test code=IG%) 1.0 % 0.0-0.8 NRBC% (test code=NRBC%) 0.0 % 0.0-0.2 MANDIFF (test code=MDIFF) NO NO RBC MORPH (test code=RBCMOR) NORMAL XR KNEE RIGHT 1 OR 2 [id number] 15:04:04STUDY: Knee radiographHISTORY: Knee pain.COMPARISON: No PriorTECHNIQUE: AP and lateral views of the right knee.SITE: A1 FINDINGS:Please note that the frontal view is limited due to obliquity of theexamination.There is no evidence of acute fracture or knee dislocation. There is mildtricompartmental joint space narrowing. There is no significant suprapatellareffusion. There are no abnormal soft tissue calcifications.IMPRESSION:No evidence of acute osseous abnormality. Mild tri compartmental osteoarthrosis.[id number] 06:39:00* Test Item Value Reference Range Comments CPK (test code=32A) 543 IU/L 39-308 [id number] 07:13:00* Test Item Value Reference Range Comments CPK (test code=32A) 1058 IU/L 39-308 CBC (INCLUDES AUTOMATED DIFFERENTIAL)2017-07-28 06:56:00* Test Item Value Reference Range Comments WBC (test code=WBC) 9.2 10\S\3/uL 4.5-11.0 RBC (test code=RBC) 3.87 10\S\6/uL 4.20-5.60 HGB (test code=HBG) 9.0 g/dL 14.0-18.0 HCT (test code=HCT) 31.0 % 35.0-46.0 MCV (test code=MCV) 80.1 fL 80.0-94.0 MCH (test code=MCH) 23.3 pg 27.0-31.0 MCHC (test code=MCHC) 29.0 g/dL 32.0-36.0 RDW (test code=RDW) 19.6 % 11.5-14.5 PLT (test code=PLT) 316 10\S\3/uL 130-400 MPV (test code=MPV) 8.9 fL 9.4-12.4 NEUTROP # (test code=NE#) 5.8 10\S\3/uL 2.0-8.0 LYMPH # (test code=LY#) 1.5 10\S\3/uL 1.2-4.0 MONOCYTE # (test code=MO#) 0.8 10\S\3/uL 0.0-1.1 EOSINOPH # (test code=EO#) 0.8 10\S\3/uL 0.0-0.7 BASOPHIL # (test code=BA#) 0.1 10\S\3/uL 0.0-0.3 IG # (test code=IG#) 0.07 10\S\3/uL 0.00-0.06 NRBC # (test code=NRBC#) 0.00 10\S\3/uL 0.00-0.01 NEUTROPH % (test code=NE%) 63.3 % 35.0-73.0 LYMPH % (test code=LY%) 16.7 % 20.0-55.0 MONO % (test code=MO%) 9.2 % 2.5-10.0 EOSINOPH % (test code=EO%) 9.2 % 0.0-5.0 BASOPHIL % (test code=BA%) 0.8 % 0.0-2.0 IG % (test code=IG%) 0.8 % 0.0-0.8 NRBC% (test code=NRBC%) 0.0 % 0.0-0.2 MANDIFF (test code=MDIFF) NO NO RBC MORPH (test code=RBCMOR) NORMAL [id number] 06:32:00* Test Item Value Reference Range Comments CPK (test code=32A) 2288 IU/L 39-308 BASIC METABOLIC [id number] 06:15:00* Test Item Value Reference Range Comments GLUCOSE (test code=06D) 109 mg/dL 75-100 SODIUM (test code=01A) 140 mmol/L 136-145 POTASSIUM (test code=01B) 3.7 mmol/L 3.6-5.1 CHLORIDE (test code=04A) 108 mmol/L 98-107 CO2 (test code=02A) 23 mmol/L 22-32 ANION GAP (test code=ANG) 12.7 mmol/L BUN (test code=05D) 12 mg/dL 7-18 CREATININE (test code=03E) 0.7 mg/dL 0.7-1.3 BUN/CREA (test code=BCR) 18 12-20 CALCIUM (test code=09D) 8.3 mg/dL 8.3-9.5 [id number] 04:18:00* Test Item Value Reference Range Comments CPK (test code=32A) 4284 IU/L 39-308 LIVER [id number] 05:03:00* Test Item Value Reference Range Comments BILI TOTAL (test code=11A) 0.5 mg/dL 0.2-1.0 BILI DIRCT (test code=12A) <0.1 mg/dL 0.0-0.2 BILI INDIR (test code=BILII) 0.0 mg/dL <=0.8 PROTEIN (test code=07D) 6.4 g/dL 6.4-8.2 ALBUMIN (test code=08D) 2.5 g/dL 3.5-4.8 GLOBULIN (test code=GLB) 3.9 g/dL 1.5-3.8 ALB/GLOB (test code=AGRR) 0.6 1.0-2.6 ALK PHOS (test code=35A) 72 IU/L 42-121 AST (test code=30A) 236 IU/L <=42 ALT (test code=31A) 139 IU/L <=78 [id number] 05:02:00* Test Item Value Reference Range Comments CPK (test code=32A) 5605 IU/L 39-308 BASIC METABOLIC [id number] 04:41:00* Test Item Value Reference Range Comments GLUCOSE (test code=06D) 106 mg/dL 75-100 SODIUM (test code=01A) 141 mmol/L 136-145 POTASSIUM (test code=01B) 3.5 mmol/L 3.6-5.1 CHLORIDE (test code=04A) 108 mmol/L 98-107 CO2 (test code=02A) 25 mmol/L 22-32 ANION GAP (test code=ANG) 11.5 mmol/L BUN (test code=05D) 14 mg/dL 7-18 CREATININE (test code=03E) 0.7 mg/dL 0.7-1.3 BUN/CREA (test code=BCR) 21 12-20 CALCIUM (test code=09D) 8.5 mg/dL 8.3-9.5 CBC (INCLUDES AUTOMATED DIFFERENTIAL)2017-07-26 04:41:00* Test Item Value Reference Range Comments WBC (test code=WBC) 11.3 10\S\3/uL 4.5-11.0 RBC (test code=RBC) 3.86 10\S\6/uL 4.20-5.60 HGB (test code=HBG) 8.9 g/dL 14.0-18.0 HCT (test code=HCT) 30.5 % 35.0-46.0 MCV (test code=MCV) 79.0 fL 80.0-94.0 MCH (test code=MCH) 23.1 pg 27.0-31.0 MCHC (test code=MCHC) 29.2 g/dL 32.0-36.0 RDW (test code=RDW) 18.6 % 11.5-14.5 PLT (test code=PLT) 310 10\S\3/uL 130-400 MPV (test code=MPV) 9.0 fL 9.4-12.4 NEUTROP # (test code=NE#) 6.9 10\S\3/uL 2.0-8.0 LYMPH # (test code=LY#) 2.0 10\S\3/uL 1.2-4.0 MONOCYTE # (test code=MO#) 0.9 10\S\3/uL 0.0-1.1 EOSINOPH # (test code=EO#) 1.3 10\S\3/uL 0.0-0.7 BASOPHIL # (test code=BA#) 0.1 10\S\3/uL 0.0-0.3 IG # (test code=IG#) 0.08 10\S\3/uL 0.00-0.06 NRBC # (test code=NRBC#) 0.00 10\S\3/uL 0.00-0.01 NEUTROPH % (test code=NE%) 61.7 % 35.0-73.0 LYMPH % (test code=LY%) 17.5 % 20.0-55.0 MONO % (test code=MO%) 8.1 % 2.5-10.0 EOSINOPH % (test code=EO%) 11.3 % 0.0-5.0 BASOPHIL % (test code=BA%) 0.7 % 0.0-2.0 IG % (test code=IG%) 0.7 % 0.0-0.8 NRBC% (test code=NRBC%) 0.0 % 0.0-0.2 MANDIFF (test code=MDIFF) NO NO RBC MORPH (test code=RBCMOR) NORMAL U/S [id number] 14:20:15EXAMINATION: U/S ABDOMEN.LOCATION: D4.HISTORY: R94.5, Abnormal LFTs, Overdose.COMPARISON: CT renal stone 08/04/2016.TECHNIQUE: Examination of the liver, spleen, kidneys, pancreas, gallbladder,bile ducts, aorta and inferior vena cava was performed.FINDINGS:Examination is limited due to patient body habitus and overlying bowel gas. Thevisualized liver parenchyma demonstrates diffusely increased echogenicity. Themain portal vein is patent. There is no intra or extrahepatic biliary ductaldilatation. The common duct measures 4 mm. The gallbladder is surgicallyabsent. Nonvisualization of pancreas due to overlying bowel gas. Spleen isunremarkable in size.The right and left kidney measure 10.1 cm and 10.4 cm respectively. There is nohydronephrosis.The partially visualized portions of abdominal aorta and IVC appearunremarkable.IMPRESSION:Cholecystectomy.Diffusely increased echogenicity of liver parenchyma, nonspecific, mostcommonly described in the setting of hepatic steatosis versus underlyingparenchymal process.[id number] 05:56:00* Test Item Value Reference Range Comments CPK (test code=32A) 4689 IU/L 39-308 BASIC METABOLIC [id number] 05:27:00* Test Item Value Reference Range Comments GLUCOSE (test code=06D) 127 mg/dL 75-100 SODIUM (test code=01A) 140 mmol/L 136-145 POTASSIUM (test code=01B) 3.6 mmol/L 3.6-5.1 CHLORIDE (test code=04A) 106 mmol/L 98-107 CO2 (test code=02A) 26 mmol/L 22-32 ANION GAP (test code=ANG) 11.6 mmol/L BUN (test code=05D) 10 mg/dL 7-18 CREATININE (test code=03E) 0.6 mg/dL 0.7-1.3 BUN/CREA (test code=BCR) 18 12-20 CALCIUM (test code=09D) 7.5 mg/dL 8.3-9.5 CBC (INCLUDES AUTOMATED DIFFERENTIAL)2017-07-25 05:17:00* Test Item Value Reference Range Comments WBC (test code=WBC) 9.8 10\S\3/uL 4.5-11.0 RBC (test code=RBC) 3.73 10\S\6/uL 4.20-5.60 HGB (test code=HBG) 8.7 g/dL 14.0-18.0 HCT (test code=HCT) 29.4 % 35.0-46.0 MCV (test code=MCV) 78.8 fL 80.0-94.0 MCH (test code=MCH) 23.3 pg 27.0-31.0 MCHC (test code=MCHC) 29.6 g/dL 32.0-36.0 RDW (test code=RDW) 18.4 % 11.5-14.5 PLT (test code=PLT) 311 10\S\3/uL 130-400 MPV (test code=MPV) 9.1 fL 9.4-12.4 NEUTROP # (test code=NE#) 7.0 10\S\3/uL 2.0-8.0 LYMPH # (test code=LY#) 1.1 10\S\3/uL 1.2-4.0 MONOCYTE # (test code=MO#) 0.7 10\S\3/uL 0.0-1.1 EOSINOPH # (test code=EO#) 1.0 10\S\3/uL 0.0-0.7 BASOPHIL # (test code=BA#) 0.1 10\S\3/uL 0.0-0.3 IG # (test code=IG#) 0.06 10\S\3/uL 0.00-0.06 NRBC # (test code=NRBC#) 0.00 10\S\3/uL 0.00-0.01 NEUTROPH % (test code=NE%) 70.8 % 35.0-73.0 LYMPH % (test code=LY%) 10.8 % 20.0-55.0 MONO % (test code=MO%) 7.1 % 2.5-10.0 EOSINOPH % (test code=EO%) 10.2 % 0.0-5.0 BASOPHIL % (test code=BA%) 0.5 % 0.0-2.0 IG % (test code=IG%) 0.6 % 0.0-0.8 NRBC% (test code=NRBC%) 0.0 % 0.0-0.2 MANDIFF (test code=MDIFF) NO NO RBC MORPH (test code=RBCMOR) NORMAL XR HIP RIGHT 1 [id number] 18:14:47EXAM: RIGHT HIP 1 VIEWINDICATION: Pain none availableCOMPARISON: None availableTECHNIQUE: AP view of the right hip. FINDINGS: No acute fracture or dislocation is identified. There is joint space narrowingof the right hip joint with subchondral sclerosis. The right sacroiliac jointand pubic symphysis are in normal alignment. No soft tissue abnormality isidentified.IMPRESSION: Normal radiograph of the right hip. Mild DJD of the right hip.Location: R16XR SHOULDER RIGHT [id number] 18:13:49EXAM: RIGHT SHOULDER 1 VIEWINDICATION: PainCOMPARISON:TECHNIQUE: One view of the right shoulder were obtained.FINDINGS:No acute fracture or dislocation. The gle nohumeral joint is normal. There isjoint space narrowing and osteophytosis of th e acromioclavicular joint. Noosseous lesions are identified. The soft tissues ar e normal. The visualizedthorax is normal.IMPRESSION:No acute fracture or disloca tion is identified. Moderate DJD of theacromioclavicular joint.LOCATION: R 16 [facility] METABOLIC [id number] 06:55:00* Test Item Value Reference Range Comments GLUCOSE (test code=06D) 122 mg/dL 75-100 SODIUM (test code=01A) 137 mmol/L 136-145 POTASSIUM (test code=01B) 3.6 mmol/L 3.6-5.1 CHLORIDE (test code=04A) 109 mmol/L 98-107 CO2 (test code=02A) 21 mmol/L 22-32 ANION GAP (test code=ANG) 10.6 mmol/L BUN (test code=05D) 11 mg/dL 7-18 CREATININE (test code=03E) 0.7 mg/dL 0.7-1.3 BUN/CREA (test code=BCR) 17 12-20 CALCIUM (test code=09D) 7.5 mg/dL 8.3-9.5 BILI TOTAL (test code=11A) 0.2 mg/dL 0.2-1.0 PROTEIN (test code=07D) 5.6 g/dL 6.4-8.2 ALBUMIN (test code=08D) 1.7 g/dL 3.5-4.8 GLOBULIN (test code=GLB) 3.9 g/dL 1.5-3.8 ALB/GLOB (test code=AGRR) 0.4 1.0-2.6 ALK PHOS (test code=35A) 71 IU/L 42-121 AST (test code=30A) 221 IU/L <=42 ALT (test code=31A) 116 IU/L <=78 CBC (INCLUDES AUTOMATED DIFFERENTIAL)2017-07-24 06:26:00* Test Item Value Reference Range Comments WBC (test code=WBC) 10.7 10\S\3/uL 4.5-11.0 RBC (test code=RBC) 3.70 10\S\6/uL 4.20-5.60 HGB (test code=HBG) 8.6 g/dL 14.0-18.0 HCT (test code=HCT) 28.9 % 35.0-46.0 MCV (test code=MCV) 78.1 fL 80.0-94.0 MCH (test code=MCH) 23.2 pg 27.0-31.0 MCHC (test code=MCHC) 29.8 g/dL 32.0-36.0 RDW (test code=RDW) 18.3 % 11.5-14.5 PLT (test code=PLT) 298 10\S\3/uL 130-400 MPV (test code=MPV) 9.0 fL 9.4-12.4 NEUTROP # (test code=NE#) 7.5 10\S\3/uL 2.0-8.0 LYMPH # (test code=LY#) 1.4 10\S\3/uL 1.2-4.0 MONOCYTE # (test code=MO#) 0.7 10\S\3/uL 0.0-1.1 EOSINOPH # (test code=EO#) 0.9 10\S\3/uL 0.0-0.7 BASOPHIL # (test code=BA#) 0.1 10\S\3/uL 0.0-0.3 IG # (test code=IG#) 0.10 10\S\3/uL 0.00-0.06 NRBC # (test code=NRBC#) 0.00 10\S\3/uL 0.00-0.01 NEUTROPH % (test code=NE%) 70.2 % 35.0-73.0 LYMPH % (test code=LY%) 12.8 % 20.0-55.0 MONO % (test code=MO%) 6.9 % 2.5-10.0 EOSINOPH % (test code=EO%) 8.5 % 0.0-5.0 BASOPHIL % (test code=BA%) 0.7 % 0.0-2.0 IG % (test code=IG%) 0.9 % 0.0-0.8 NRBC% (test code=NRBC%) 0.0 % 0.0-0.2 MANDIFF (test code=MDIFF) NO NO RBC MORPH (test code=RBCMOR) NORMAL LIVER [id number] 12:36:00* Test Item Value Reference Range Comments BILI TOTAL (test code=11A) 0.2 mg/dL 0.2-1.0 BILI DIRCT (test code=12A) <0.1 mg/dL 0.0-0.2 BILI INDIR (test code=BILII) 0.0 mg/dL <=0.8 PROTEIN (test code=07D) 6.1 g/dL 6.4-8.2 ALBUMIN (test code=08D) 2.1 g/dL 3.5-4.8 GLOBULIN (test code=GLB) 4.0 g/dL 1.5-3.8 ALB/GLOB (test code=AGRR) 0.5 1.0-2.6 ALK PHOS (test code=35A) 71 IU/L 42-121 AST (test code=30A) 318 IU/L <=42 ALT (test code=31A) 144 IU/L <=78 PROTHROMBIN [id number] 12:22:00* Test Item Value Reference Range Comments PT (test code=TT) 12.5 s 9.8-13.6 INR (test code=INR) 1.1 INRH (test code=INRH) SUGGESTED THERAPEUTIC RANGE FOR INR: 2.5 - 3.5 For Patients with Prosthetic Valves or Patients with recurrent Thromboembolic Events 2.0 - 3.0 For Most Other Applications [id number] 08:34:00* Test Item Value Reference Range Comments CPK (test code=32A) 9914 IU/L 39-308 [id number] 08:34:00* Test Item Value Reference Range Comments ACETAMINPH (test code=94M) <2.0 ug/mL 10.0-30.0 AMMONIA [id number] 08:00:00* Test Item Value Reference Range Comments AMMONIA (test code=54A) 30 umol/L 11-32 BASIC METABOLIC [id number] 08:00:00* Test Item Value Reference Range Comments GLUCOSE (test code=06D) 91 mg/dL 75-100 SODIUM (test code=01A) 140 mmol/L 136-145 POTASSIUM (test code=01B) 3.8 mmol/L 3.6-5.1 CHLORIDE (test code=04A) 108 mmol/L 98-107 CO2 (test code=02A) 26 mmol/L 22-32 ANION GAP (test code=ANG) 9.8 mmol/L BUN (test code=05D) 12 mg/dL 7-18 CREATININE (test code=03E) 0.7 mg/dL 0.7-1.3 BUN/CREA (test code=BCR) 18 12-20 CALCIUM (test code=09D) 8.1 mg/dL 8.3-9.5 CBC (INCLUDES AUTOMATED DIFFERENTIAL)2017-07-23 07:49:00* Test Item Value Reference Range Comments WBC (test code=WBC) 10.8 10\S\3/uL 4.5-11.0 RBC (test code=RBC) 3.71 10\S\6/uL 4.20-5.60 HGB (test code=HBG) 8.5 g/dL 14.0-18.0 HCT (test code=HCT) 28.7 % 35.0-46.0 MCV (test code=MCV) 77.4 fL 80.0-94.0 MCH (test code=MCH) 22.9 pg 27.0-31.0 MCHC (test code=MCHC) 29.6 g/dL 32.0-36.0 RDW (test code=RDW) 18.3 % 11.5-14.5 PLT (test code=PLT) 303 10\S\3/uL 130-400 MPV (test code=MPV) 9.0 fL 9.4-12.4 NEUTROP # (test code=NE#) 7.6 10\S\3/uL 2.0-8.0 LYMPH # (test code=LY#) 1.5 10\S\3/uL 1.2-4.0 MONOCYTE # (test code=MO#) 0.9 10\S\3/uL 0.0-1.1 EOSINOPH # (test code=EO#) 0.7 10\S\3/uL 0.0-0.7 BASOPHIL # (test code=BA#) 0.1 10\S\3/uL 0.0-0.3 IG # (test code=IG#) 0.05 10\S\3/uL 0.00-0.06 NRBC # (test code=NRBC#) 0.00 10\S\3/uL 0.00-0.01 NEUTROPH % (test code=NE%) 70.1 % 35.0-73.0 LYMPH % (test code=LY%) 13.7 % 20.0-55.0 MONO % (test code=MO%) 8.5 % 2.5-10.0 EOSINOPH % (test code=EO%) 6.6 % 0.0-5.0 BASOPHIL % (test code=BA%) 0.6 % 0.0-2.0 IG % (test code=IG%) 0.5 % 0.0-0.8 NRBC% (test code=NRBC%) 0.0 % 0.0-0.2 MANDIFF (test code=MDIFF) NO NO RBC MORPH (test code=RBCMOR) NORMAL CARDIAC [id number] 07:20:00* Test Item Value Reference Range Comments TROPONIN I (test code=A84) <0.015 ng/mL 0.000-0.045 CKMB (test code=A49) 54.8 ng/mL <=3.6 CPK (test code=32A) >92598 IU/L 39-308 [id number] 06:56:00* Test Item Value Reference Range Comments ACETAMINPH (test code=94M) <2.0 ug/mL 10.0-30.0 COMPREHENSIVE METABOLIC [id number] 06:56:00* Test Item Value Reference Range Comments GLUCOSE (test code=06D) 129 mg/dL 75-100 SODIUM (test code=01A) 141 mmol/L 136-145 POTASSIUM (test code=01B) 3.8 mmol/L 3.6-5.1 CHLORIDE (test code=04A) 110 mmol/L 98-107 CO2 (test code=02A) 24 mmol/L 22-32 ANION GAP (test code=ANG) 10.8 mmol/L BUN (test code=05D) 20 mg/dL 7-18 CREATININE (test code=03E) 0.8 mg/dL 0.7-1.3 BUN/CREA (test code=BCR) 24 12-20 CALCIUM (test code=09D) 7.8 mg/dL 8.3-9.5 BILI TOTAL (test code=11A) 0.4 mg/dL 0.2-1.0 PROTEIN (test code=07D) 6.4 g/dL 6.4-8.2 ALBUMIN (test code=08D) 2.5 g/dL 3.5-4.8 GLOBULIN (test code=GLB) 3.9 g/dL 1.5-3.8 ALB/GLOB (test code=AGRR) 0.6 1.0-2.6 ALK PHOS (test code=35A) 86 IU/L 42-121 AST (test code=30A) 740 IU/L <=42 ALT (test code=31A) 204 IU/L <=78 CBC (INCLUDES AUTOMATED DIFFERENTIAL)2017-07-22 06:19:00* Test Item Value Reference Range Comments WBC (test code=WBC) 12.5 10\S\3/uL 4.5-11.0 RBC (test code=RBC) 3.51 10\S\6/uL 4.20-5.60 HGB (test code=HBG) 8.0 g/dL 14.0-18.0 HCT (test code=HCT) 26.9 % 35.0-46.0 MCV (test code=MCV) 76.6 fL 80.0-94.0 MCH (test code=MCH) 22.8 pg 27.0-31.0 MCHC (test code=MCHC) 29.7 g/dL 32.0-36.0 RDW (test code=RDW) 18.8 % 11.5-14.5 PLT (test code=PLT) 302 10\S\3/uL 130-400 MPV (test code=MPV) 9.1 fL 9.4-12.4 NEUTROP # (test code=NE#) 9.8 10\S\3/uL 2.0-8.0 LYMPH # (test code=LY#) 1.3 10\S\3/uL 1.2-4.0 MONOCYTE # (test code=MO#) 1.0 10\S\3/uL 0.0-1.1 EOSINOPH # (test code=EO#) 0.3 10\S\3/uL 0.0-0.7 BASOPHIL # (test code=BA#) 0.1 10\S\3/uL 0.0-0.3 IG # (test code=IG#) 0.06 10\S\3/uL 0.00-0.06 NRBC # (test code=NRBC#) 0.00 10\S\3/uL 0.00-0.01 NEUTROPH % (test code=NE%) 78.0 % 35.0-73.0 LYMPH % (test code=LY%) 10.7 % 20.0-55.0 MONO % (test code=MO%) 7.9 % 2.5-10.0 EOSINOPH % (test code=EO%) 2.5 % 0.0-5.0 BASOPHIL % (test code=BA%) 0.4 % 0.0-2.0 IG % (test code=IG%) 0.5 % 0.0-0.8 NRBC% (test code=NRBC%) 0.0 % 0.0-0.2 MANDIFF (test code=MDIFF) NO NO RBC MORPH (test code=RBCMOR) NORMAL CARDIAC [id number] 14:07:00* Test Item Value Reference Range Comments TROPONIN I (test code=A84) 0.048 ng/mL 0.000-0.045 CKMB (test code=A49) 207.9 ng/mL <=3.6 CPK (test code=32A) >10452 IU/L 39-308 URINALYSIS WITH [id number] 13:48:00* Test Item Value Reference Range Comments COLOR (test code=COLU) DK YELLOW YELLOW CLARITY (test code=CLA) CLOUDY CLEAR GLUCOSE UR (test code=UA GLUCOSE) NEGATIVE NEGATIVE BILI UR (test code=BILE) 1+ NEGATIVE KETONES UR (test code=CHELSEA) NEGATIVE NEGATIVE SP GRAVITY (test code=SPGR) 1.023 1.005-1.030 PH UR (test code=PH) 6.0 4.5-8.0 PROTEIN UR (test code=PU) 2+ NEGATIVE UROBIL UR (test code=UROQ) 0.2 EU/dL 0.2-1.0 NITRITE UR (test code=NITRITE) NEGATIVE NEGATIVE BLOOD UR (test code=UA BLOOD) 3+ NEGATIVE LEUK ES UR (test code=LEUK) NEGATIVE NEGATIVE WBC UR (test code=UWBC) 1 /HPF 0-3 RBC UR (test code=URBC) 3 /HPF 0-2 EPITH UR (test code=UEPC) FEW /LPF NONE BACTERIA UR (test code=UBACT) NONE /HPF NONE CAST UR (test code=CAST) /LPF NONE CRYSTAL UR (test code=CRYU) / LPF NONE MUCUS UR (test code=MUC) FEW / HPF NONE AMORPH UR (test code=SRINI) / HPF NONE TRICH UR (test code=UTRICH) /HPF NONE YEAST UR (test code=UY) /HPF NONE SPERM UR (test code=USPERM) /HPF NONE PRO TIME AND [id number] 13:42:00* Test Item Value Reference Range Comments PT (test code=TT) 13.5 s 9.8-13.6 INR (test code=INR) 1.2 INRH (test code=INRH) SUGGESTED THERAPEUTIC RANGE FOR INR: 2.5 - 3.5 For Patients with Prosthetic Valves or Patients with recurrent Thromboembolic Events 2.0 - 3.0 For Most Other Applications PTT (test code=PTT) 26.7 s 20.2-38.0 PTTH (test code=PTTH) To monitor the effectiveness of heparin, we offer the Anti-Xa (Heparin Assay). It can be used for either unfractionated or LMW Heparin. Order Code is ANTI-XA AMMONIA [id number] 13:39:00* Test Item Value Reference Range Comments AMMONIA (test code=54A) 29 umol/L 11-32 DRUGS OF [id number] 13:39:00* Test Item Value Reference Range Comments DRUG SCRN (test code=HDOA) URINE DRUG SCREEN This is an unconfirmed screening result and should not be used for non-medical purposes CANNABINOD (test code=88C) Negative NEGATIVE AMPHETAMINE (test code=84A) Negative NEGATIVE BENZODIAZP (test code=86A) POSITIVE NEGATIVE BARBITURAT (test code=85A) Negative NEGATIVE OPIATES (test code=92B) Negative NEGATIVE COCAINE (test code=87A) Negative NEGATIVE PHENCYCLID (test code=66A) Negative NEGATIVE METHADONE (test code=64A) Negative NEGATIVE DOAH (test code=DOAH) URINE DRUG SCREEN Cut-off values are as follows: Cannabinoids 50 ng/mL Cocaine 300 ng/mL Amphetamines 1000 ng/mL Phencyclidine 25 ng/mL Benzodiazepines 200 ng.mL Methadone 300 ng/mL Barbiturates 200 ng/mL Opiates 2000 ng/mL CBC (INCLUDES AUTOMATED DIFFERENTIAL)2017-07-21 13:37:00* Test Item Value Reference Range Comments WBC (test code=WBC) 16.7 10\S\3/uL 4.5-11.0 RBC (test code=RBC) 3.54 10\S\6/uL 4.20-5.60 HGB (test code=HBG) 8.1 g/dL 14.0-18.0 HCT (test code=HCT) 26.4 % 35.0-46.0 MCV (test code=MCV) 74.6 fL 80.0-94.0 MCH (test code=MCH) 22.9 pg 27.0-31.0 MCHC (test code=MCHC) 30.7 g/dL 32.0-36.0 RDW (test code=RDW) 18.5 % 11.5-14.5 PLT (test code=PLT) 326 10\S\3/uL 130-400 MPV (test code=MPV) 8.9 fL 9.4-12.4 NEUTROP # (test code=NE#) 14.3 10\S\3/uL 2.0-8.0 LYMPH # (test code=LY#) 0.8 10\S\3/uL 1.2-4.0 MONOCYTE # (test code=MO#) 1.4 10\S\3/uL 0.0-1.1 EOSINOPH # (test code=EO#) 0.0 10\S\3/uL 0.0-0.7 BASOPHIL # (test code=BA#) 0.1 10\S\3/uL 0.0-0.3 IG # (test code=IG#) 0.09 10\S\3/uL 0.00-0.06 NRBC # (test code=NRBC#) 0.00 10\S\3/uL 0.00-0.01 NEUTROPH % (test code=NE%) 86.2 % 35.0-73.0 LYMPH % (test code=LY%) 4.8 % 20.0-55.0 MONO % (test code=MO%) 8.1 % 2.5-10.0 EOSINOPH % (test code=EO%) 0.1 % 0.0-5.0 BASOPHIL % (test code=BA%) 0.3 % 0.0-2.0 IG % (test code=IG%) 0.5 % 0.0-0.8 NRBC% (test code=NRBC%) 0.0 % 0.0-0.2 MANDIFF (test code=MDIFF) NO NO RBC MORPH (test code=RBCMOR) NORMAL COMPREHENSIVE METABOLIC [id number] 13:20:00* Test Item Value Reference Range Comments GLUCOSE (test code=06D) 152 mg/dL 75-100 SODIUM (test code=01A) 143 mmol/L 136-145 POTASSIUM (test code=01B) 3.7 mmol/L 3.6-5.1 CHLORIDE (test code=04A) 111 mmol/L 98-107 CO2 (test code=02A) 20 mmol/L 22-32 ANION GAP (test code=ANG) 15.7 mmol/L BUN (test code=05D) 28 mg/dL 7-18 CREATININE (test code=03E) 1.4 mg/dL 0.7-1.3 BUN/CREA (test code=BCR) 20 12-20 CALCIUM (test code=09D) 7.8 mg/dL 8.3-9.5 BILI TOTAL (test code=11A) 0.6 mg/dL 0.2-1.0 PROTEIN (test code=07D) 6.7 g/dL 6.4-8.2 ALBUMIN (test code=08D) 2.9 g/dL 3.5-4.8 GLOBULIN (test code=GLB) 3.8 g/dL 1.5-3.8 ALB/GLOB (test code=AGRR) 0.8 1.0-2.6 ALK PHOS (test code=35A) 95 IU/L 42-121 AST (test code=30A) 1205 IU/L <=42 ALT (test code=31A) 242 IU/L <=78 [id number] 13:20:00* Test Item Value Reference Range Comments ACETAMINPH (test code=94M) <10.0 ug/mL 10.0-30.0 ALCOHOL BLOOD (ETOH)2017-07-21 13:11:00* Test Item Value Reference Range Comments ETOH (test code=HALC) ETHANOL The result is to be used only for medical purposes ALCOHOL (test code=56A) <10 mg/dL <=10 [id number] 13:04:00* Test Item Value Reference Range Comments SALICYLATE (test code=94B) <1.7 mg/dL 2.8-20.0 XR CHEST 1 VIEW [id number] 12:08:55Portable AP chest, 1 viewLocation Code: [id number] HISTORY: R41.82: ALTERED MENTAL STATUS, UNSPECIFIEDCOMPARISON: 06/21/2017COMMENT: The lungs are clear and well inflated. The costophrenic angles are sharp. Thecardiomediastinal silhouette is unremarkable. The bones are intact.IMPRESSION: Stable chest with no acute abnormality.CT HEAD W/O CONTRAST 2017-07-21 12:02:56CT brain without contrast.Location code: [id number] HISTORY: R41.82: ALTERED MENTAL STATUS, UNSPECIFIED COMPARISON: None.TECHNIQUE: Routine unenhanced axial imaging of the brain was performed. Oneor more of the following dose reduction techniques were used: Automatedexposure control, adjustment of the mA and or KV according to patient size,and/or utilization of iterative reconstruction technique. DLP: 977 mGy-cm. FINDINGS: There is no acute intracranial hemorrhage or extra-axial collection.There is no hydrocephalus, midline shift, or space occupying mass. Ahumada-whitematter differentiation is well preserved with no definite CT evidence of anacute infarct. The cranial vault and skull base are intact. The paranasal sinuses and mastoidair cells are pneumatized and well aerated. IMPRESSION: No acute intracranial abnormality.[id number] 06:47:00* Test Item Value Reference Range Comments ACETAMINPH (test code=94M) 30.5 ug/mL 10.0-30.0 CARDIAC [id number] 03:29:00* Test Item Value Reference Range Comments TROPONIN I (test code=A84) <0.015 ng/mL 0.000-0.045 CKMB (test code=A49) 1.9 ng/mL <=3.6 CPK (test code=32A) 277 IU/L 39-308 BASIC METABOLIC [id number] 03:28:00* Test Item Value Reference Range Comments GLUCOSE (test code=06D) 183 mg/dL 75-100 SODIUM (test code=01A) 141 mmol/L 136-145 POTASSIUM (test code=01B) 3.8 mmol/L 3.6-5.1 CHLORIDE (test code=04A) 107 mmol/L 98-107 CO2 (test code=02A) 22 mmol/L 22-32 ANION GAP (test code=ANG) 15.8 mmol/L BUN (test code=05D) 16 mg/dL 7-18 CREATININE (test code=03E) 1.0 mg/dL 0.7-1.3 BUN/CREA (test code=BCR) 17 12-20 CALCIUM (test code=09D) 8.2 mg/dL 8.3-9.5 DRUGS OF [id number] 03:23:00* Test Item Value Reference Range Comments DRUG SCRN (test code=HDOA) URINE DRUG SCREEN This is an unconfirmed screening result and should not be used for non-medical purposes CANNABINOD (test code=88C) Negative NEGATIVE AMPHETAMINE (test code=84A) Negative NEGATIVE BENZODIAZP (test code=86A) POSITIVE NEGATIVE BARBITURAT (test code=85A) Negative NEGATIVE OPIATES (test code=92B) Negative NEGATIVE COCAINE (test code=87A) Negative NEGATIVE PHENCYCLID (test code=66A) Negative NEGATIVE METHADONE (test code=64A) Negative NEGATIVE DOAH (test code=DOAH) URINE DRUG SCREEN Cut-off values are as follows: Cannabinoids 50 ng/mL Cocaine 300 ng/mL Amphetamines 1000 ng/mL Phencyclidine 25 ng/mL Benzodiazepines 200 ng.mL Methadone 300 ng/mL Barbiturates 200 ng/mL Opiates 2000 ng/mL ALCOHOL BLOOD (ETOH)2017-06-27 03:23:00* Test Item Value Reference Range Comments ETOH (test code=HALC) ETHANOL The result is to be used only for medical purposes ALCOHOL (test code=56A) <10 mg/dL <=10 LIVER [id number] 03:23:00* Test Item Value Reference Range Comments BILI TOTAL (test code=11A) 0.2 mg/dL 0.2-1.0 BILI DIRCT (test code=12A) <0.1 mg/dL 0.0-0.2 BILI INDIR (test code=BILII) 0.0 mg/dL <=0.8 PROTEIN (test code=07D) 7.5 g/dL 6.4-8.2 ALBUMIN (test code=08D) 3.2 g/dL 3.5-4.8 GLOBULIN (test code=GLB) 4.3 g/dL 1.5-3.8 ALB/GLOB (test code=AGRR) 0.7 1.0-2.6 ALK PHOS (test code=35A) 83 IU/L 42-121 AST (test code=30A) 21 IU/L <=42 ALT (test code=31A) 27 IU/L <=78 [id number] 03:22:00* Test Item Value Reference Range Comments ACETAMINPH (test code=94M) 16.9 ug/mL 10.0-30.0 URINALYSIS WITH [id number] 03:20:00* Test Item Value Reference Range Comments COLOR (test code=COLU) YELLOW YELLOW CLARITY (test code=CLA) CLEAR CLEAR GLUCOSE UR (test code=UA GLUCOSE) NEGATIVE NEGATIVE BILI UR (test code=BILE) NEGATIVE NEGATIVE KETONES UR (test code=CHELSEA) TRACE NEGATIVE SP GRAVITY (test code=SPGR) 1.034 1.005-1.030 PH UR (test code=PH) 6.0 4.5-8.0 PROTEIN UR (test code=PU) 1+ NEGATIVE UROBIL UR (test code=UROQ) 1.0 EU/dL 0.2-1.0 NITRITE UR (test code=NITRITE) NEGATIVE NEGATIVE BLOOD UR (test code=UA BLOOD) NEGATIVE NEGATIVE LEUK ES UR (test code=LEUK) NEGATIVE NEGATIVE WBC UR (test code=UWBC) 0 /HPF 0-3 RBC UR (test code=URBC) 0 /HPF 0-2 EPITH UR (test code=UEPC) NONE /LPF NONE BACTERIA UR (test code=UBACT) NONE /HPF NONE CAST UR (test code=CAST) /LPF NONE CRYSTAL UR (test code=CRYU) / LPF NONE MUCUS UR (test code=MUC) FEW / HPF NONE AMORPH UR (test code=SRINI) / HPF NONE TRICH UR (test code=UTRICH) /HPF NONE YEAST UR (test code=UY) /HPF NONE SPERM UR (test code=USPERM) /HPF NONE [id number] 03:18:00* Test Item Value Reference Range Comments SALICYLATE (test code=94B) <1.7 mg/dL 2.8-20.0 CBC (INCLUDES AUTOMATED DIFFERENTIAL)2017-06-27 03:08:00* Test Item Value Reference Range Comments WBC (test code=WBC) 7.4 10\S\3/uL 4.5-11.0 RBC (test code=RBC) 4.14 10\S\6/uL 4.20-5.60 HGB (test code=HBG) 9.7 g/dL 14.0-18.0 HCT (test code=HCT) 32.6 % 35.0-46.0 MCV (test code=MCV) 78.7 fL 80.0-94.0 MCH (test code=MCH) 23.4 pg 27.0-31.0 MCHC (test code=MCHC) 29.8 g/dL 32.0-36.0 RDW (test code=RDW) 18.4 % 11.5-14.5 PLT (test code=PLT) 263 10\S\3/uL 130-400 MPV (test code=MPV) 9.4 fL 9.4-12.4 NEUTROP # (test code=NE#) 4.8 10\S\3/uL 2.0-8.0 LYMPH # (test code=LY#) 1.4 10\S\3/uL 1.2-4.0 MONOCYTE # (test code=MO#) 0.8 10\S\3/uL 0.0-1.1 EOSINOPH # (test code=EO#) 0.4 10\S\3/uL 0.0-0.7 BASOPHIL # (test code=BA#) 0.1 10\S\3/uL 0.0-0.3 IG # (test code=IG#) 0.02 10\S\3/uL 0.00-0.06 NRBC # (test code=NRBC#) 0.00 10\S\3/uL 0.00-0.01 NEUTROPH % (test code=NE%) 64.4 % 35.0-73.0 LYMPH % (test code=LY%) 18.7 % 20.0-55.0 MONO % (test code=MO%) 10.1 % 2.5-10.0 EOSINOPH % (test code=EO%) 5.8 % 0.0-5.0 BASOPHIL % (test code=BA%) 0.7 % 0.0-2.0 IG % (test code=IG%) 0.3 % 0.0-0.8 NRBC% (test code=NRBC%) 0.0 % 0.0-0.2 MANDIFF (test code=MDIFF) NO NO RBC MORPH (test code=RBCMOR) NORMAL URINALYSIS WITH [id number] 21:19:00* Test Item Value Reference Range Comments COLOR (test code=COLU) YELLOW YELLOW CLARITY (test code=CLA) CLEAR CLEAR GLUCOSE UR (test code=UA GLUCOSE) NEGATIVE NEGATIVE BILI UR (test code=BILE) NEGATIVE NEGATIVE KETONES UR (test code=CHELSEA) TRACE NEGATIVE SP GRAVITY (test code=SPGR) 1.036 1.005-1.030 PH UR (test code=PH) 6.0 4.5-8.0 PROTEIN UR (test code=PU) 1+ NEGATIVE UROBIL UR (test code=UROQ) 1.0 EU/dL 0.2-1.0 NITRITE UR (test code=NITRITE) NEGATIVE NEGATIVE BLOOD UR (test code=UA BLOOD) NEGATIVE NEGATIVE LEUK ES UR (test code=LEUK) NEGATIVE NEGATIVE WBC UR (test code=UWBC) 2 /HPF 0-3 RBC UR (test code=URBC) 0 /HPF 0-2 EPITH UR (test code=UEPC) FEW /LPF NONE BACTERIA UR (test code=UBACT) NONE /HPF NONE CAST UR (test code=CAST) /LPF NONE CRYSTAL UR (test code=CRYU) / LPF NONE MUCUS UR (test code=MUC) FEW / HPF NONE AMORPH UR (test code=SRINI) / HPF NONE TRICH UR (test code=UTRICH) /HPF NONE YEAST UR (test code=UY) /HPF NONE SPERM UR (test code=USPERM) /HPF NONE CARDIAC [id number] 21:01:00* Test Item Value Reference Range Comments TROPONIN I (test code=A84) <0.015 ng/mL 0.000-0.045 CKMB (test code=A49) 2.2 ng/mL <=3.6 CPK (test code=32A) 308 IU/L 39-308 BASIC METABOLIC [id number] 20:58:00* Test Item Value Reference Range Comments GLUCOSE (test code=06D) 169 mg/dL 75-100 SODIUM (test code=01A) 139 mmol/L 136-145 POTASSIUM (test code=01B) 3.7 mmol/L 3.6-5.1 CHLORIDE (test code=04A) 107 mmol/L 98-107 CO2 (test code=02A) 23 mmol/L 22-32 ANION GAP (test code=ANG) 12.7 mmol/L BUN (test code=05D) 17 mg/dL 7-18 CREATININE (test code=03E) 1.0 mg/dL 0.7-1.3 BUN/CREA (test code=BCR) 17 12-20 CALCIUM (test code=09D) 8.4 mg/dL 8.3-9.5 PRO TIME AND [id number] 20:53:00* Test Item Value Reference Range Comments PT (test code=TT) 11.4 s 9.8-13.6 INR (test code=INR) 1.0 INRH (test code=INRH) SUGGESTED THERAPEUTIC RANGE FOR INR: 2.5 - 3.5 For Patients with Prosthetic Valves or Patients with recurrent Thromboembolic Events 2.0 - 3.0 For Most Other Applications PTT (test code=PTT) 26.7 s 20.2-38.0 PTTH (test code=PTTH) To monitor the effectiveness of heparin, we offer the Anti-Xa (Heparin Assay). It can be used for either unfractionated or LMW Heparin. Order Code is ANTI-XA CBC (INCLUDES AUTOMATED DIFFERENTIAL)2017-06-21 20:45:00* Test Item Value Reference Range Comments WBC (test code=WBC) 7.2 10\S\3/uL 4.5-11.0 RBC (test code=RBC) 4.11 10\S\6/uL 4.20-5.60 HGB (test code=HBG) 9.6 g/dL 14.0-18.0 HCT (test code=HCT) 31.4 % 35.0-46.0 MCV (test code=MCV) 76.4 fL 80.0-94.0 MCH (test code=MCH) 23.4 pg 27.0-31.0 MCHC (test code=MCHC) 30.6 g/dL 32.0-36.0 RDW (test code=RDW) 17.9 % 11.5-14.5 PLT (test code=PLT) 265 10\S\3/uL 130-400 MPV (test code=MPV) 8.8 fL 9.4-12.4 NEUTROP # (test code=NE#) 4.6 10\S\3/uL 2.0-8.0 LYMPH # (test code=LY#) 1.4 10\S\3/uL 1.2-4.0 MONOCYTE # (test code=MO#) 0.7 10\S\3/uL 0.0-1.1 EOSINOPH # (test code=EO#) 0.4 10\S\3/uL 0.0-0.7 BASOPHIL # (test code=BA#) 0.1 10\S\3/uL 0.0-0.3 IG # (test code=IG#) 0.01 10\S\3/uL 0.00-0.06 NRBC # (test code=NRBC#) 0.00 10\S\3/uL 0.00-0.01 NEUTROPH % (test code=NE%) 64.0 % 35.0-73.0 LYMPH % (test code=LY%) 19.6 % 20.0-55.0 MONO % (test code=MO%) 10.1 % 2.5-10.0 EOSINOPH % (test code=EO%) 5.4 % 0.0-5.0 BASOPHIL % (test code=BA%) 0.8 % 0.0-2.0 IG % (test code=IG%) 0.1 % 0.0-0.8 NRBC% (test code=NRBC%) 0.0 % 0.0-0.2 MANDIFF (test code=MDIFF) NO NO RBC MORPH (test code=RBCMOR) NORMAL XR CHEST 1 VIEW [id number] 20:34:55Location: [id number], AP ViewHistory: Chest painComparison: Chest radiograph dated 05/26/17indings: No evidence of airspace consolidation, pleural effusion or pneumothorax ispresent. The cardiomediastinal silhouette and pulmonary vasculature are normal.Osseous structures are unremarkable.Impression:No radiographic evidence for active cardiopulmonary disease. DRUGS OF [id number] 03:22:00* Test Item Value Reference Range Comments DRUG SCRN (test code=HDOA) URINE DRUG SCREEN This is an unconfirmed screening result and should not be used for non-medical purposes CANNABINOD (test code=88C) Negative NEGATIVE AMPHETAMINE (test code=84A) Negative NEGATIVE BENZODIAZP (test code=86A) POSITIVE NEGATIVE BARBITURAT (test code=85A) Negative NEGATIVE OPIATES (test code=92B) Negative NEGATIVE COCAINE (test code=87A) Negative NEGATIVE PHENCYCLID (test code=66A) Negative NEGATIVE METHADONE (test code=64A) Negative NEGATIVE DOAH (test code=DOAH) URINE DRUG SCREEN Cut-off values are as follows: Cannabinoids 50 ng/mL Cocaine 300 ng/mL Amphetamines 1000 ng/mL Phencyclidine 25 ng/mL Benzodiazepines 200 ng.mL Methadone 300 ng/mL Barbiturates 200 ng/mL Opiates 2000 ng/mL [id number] 03:19:00* Test Item Value Reference Range Comments COLOR (test code=COLU) YELLOW YELLOW CLARITY (test code=CLA) CLEAR CLEAR GLUCOSE UR (test code=UA GLUCOSE) NEGATIVE NEGATIVE BILI UR (test code=BILE) NEGATIVE NEGATIVE KETONES UR (test code=CHELSEA) NEGATIVE NEGATIVE SP GRAVITY (test code=SPGR) 1.018 1.005-1.030 PH UR (test code=PH) 6.0 4.5-8.0 PROTEIN UR (test code=PU) NEGATIVE NEGATIVE UROBIL UR (test code=UROQ) 1.0 EU/dL 0.2-1.0 NITRITE UR (test code=NITRITE) NEGATIVE NEGATIVE BLOOD UR (test code=UA BLOOD) NEGATIVE NEGATIVE LEUK ES UR (test code=LEUK) NEGATIVE NEGATIVE [id number] 21:52:00* Test Item Value Reference Range Comments ACETAMINPH (test code=94M) <2.0 ug/mL 10.0-30.0 AMMONIA [id number] 21:51:00* Test Item Value Reference Range Comments AMMONIA (test code=54A) 35 umol/L 11-32 COMPREHENSIVE METABOLIC [id number] 21:43:00* Test Item Value Reference Range Comments GLUCOSE (test code=06D) 116 mg/dL 75-100 SODIUM (test code=01A) 140 mmol/L 136-145 POTASSIUM (test code=01B) 3.6 mmol/L 3.6-5.1 CHLORIDE (test code=04A) 107 mmol/L 98-107 CO2 (test code=02A) 24 mmol/L 22-32 ANION GAP (test code=ANG) 12.6 mmol/L BUN (test code=05D) 11 mg/dL 7-18 CREATININE (test code=03E) 0.9 mg/dL 0.7-1.3 BUN/CREA (test code=BCR) 12 12-20 CALCIUM (test code=09D) 8.6 mg/dL 8.3-9.5 BILI TOTAL (test code=11A) 0.2 mg/dL 0.2-1.0 PROTEIN (test code=07D) 7.3 g/dL 6.4-8.2 ALBUMIN (test code=08D) 3.2 g/dL 3.5-4.8 GLOBULIN (test code=GLB) 4.1 g/dL 1.5-3.8 ALB/GLOB (test code=AGRR) 0.8 1.0-2.6 ALK PHOS (test code=35A) 83 IU/L 42-121 AST (test code=30A) 17 IU/L <=42 ALT (test code=31A) 28 IU/L <=78 [id number] 21:43:00* Test Item Value Reference Range Comments SALICYLATE (test code=94B) <1.7 mg/dL 2.8-20.0 ALCOHOL BLOOD (ETOH)2017-06-15 21:42:00* Test Item Value Reference Range Comments ETOH (test code=HALC) ETHANOL The result is to be used only for medical purposes ALCOHOL (test code=56A) <10 mg/dL <=10 CBC (INCLUDES AUTOMATED DIFFERENTIAL)2017-06-15 21:16:00* Test Item Value Reference Range Comments WBC (test code=WBC) 7.6 10\S\3/uL 4.5-11.0 RBC (test code=RBC) 4.15 10\S\6/uL 4.20-5.60 HGB (test code=HBG) 9.8 g/dL 14.0-18.0 HCT (test code=HCT) 32.1 % 35.0-46.0 MCV (test code=MCV) 77.3 fL 80.0-94.0 MCH (test code=MCH) 23.6 pg 27.0-31.0 MCHC (test code=MCHC) 30.5 g/dL 32.0-36.0 RDW (test code=RDW) 18.0 % 11.5-14.5 PLT (test code=PLT) 266 10\S\3/uL 130-400 MPV (test code=MPV) 9.2 fL 9.4-12.4 NEUTROP # (test code=NE#) 5.4 10\S\3/uL 2.0-8.0 LYMPH # (test code=LY#) 1.1 10\S\3/uL 1.2-4.0 MONOCYTE # (test code=MO#) 0.6 10\S\3/uL 0.0-1.1 EOSINOPH # (test code=EO#) 0.4 10\S\3/uL 0.0-0.7 BASOPHIL # (test code=BA#) 0.1 10\S\3/uL 0.0-0.3 IG # (test code=IG#) 0.02 10\S\3/uL 0.00-0.06 NRBC # (test code=NRBC#) 0.00 10\S\3/uL 0.00-0.01 NEUTROPH % (test code=NE%) 70.8 % 35.0-73.0 LYMPH % (test code=LY%) 14.0 % 20.0-55.0 MONO % (test code=MO%) 8.4 % 2.5-10.0 EOSINOPH % (test code=EO%) 5.8 % 0.0-5.0 BASOPHIL % (test code=BA%) 0.7 % 0.0-2.0 IG % (test code=IG%) 0.3 % 0.0-0.8 NRBC% (test code=NRBC%) 0.0 % 0.0-0.2 MANDIFF (test code=MDIFF) NO NO RBC MORPH (test code=RBCMOR) NORMAL LIVER [id number] 05:53:00* Test Item Value Reference Range Comments BILI TOTAL (test code=11A) 0.3 mg/dL 0.2-1.0 BILI DIRCT (test code=12A) <0.1 mg/dL 0.0-0.2 Unable to calculate Indirect Bili due to low test results PROTEIN (test code=07D) 7.5 g/dL 6.4-8.2 ALBUMIN (test code=08D) 3.5 g/dL 3.5-4.8 GLOBULIN (test code=GLB) 4.0 g/dL 1.5-3.8 ALB/GLOB (test code=AGRR) 0.9 1.0-2.6 ALK PHOS (test code=35A) 97 IU/L 42-121 AST (test code=30A) 34 IU/L <=42 ALT (test code=31A) 46 IU/L <=78 BASIC METABOLIC [id number] 05:48:00* Test Item Value Reference Range Comments GLUCOSE (test code=06D) 117 mg/dL 75-100 SODIUM (test code=01A) 138 mmol/L 136-145 POTASSIUM (test code=01B) 3.8 mmol/L 3.6-5.1 CHLORIDE (test code=04A) 105 mmol/L 98-107 CO2 (test code=02A) 25 mmol/L 22-32 ANION GAP (test code=ANG) 11.8 mmol/L BUN (test code=05D) 12 mg/dL 7-18 CREATININE (test code=03E) 1.0 mg/dL 0.7-1.3 BUN/CREA (test code=BCR) 13 12-20 CALCIUM (test code=09D) 8.8 mg/dL 8.3-9.5 AMYLASE AND [id number] 05:46:00* Test Item Value Reference Range Comments AMYLASE (test code=10A) 43 U/L 28-100 LIPASE (test code=60A) 107 IU/L 73-393 CBC (INCLUDES AUTOMATED DIFFERENTIAL)2017-06-12 05:33:00* Test Item Value Reference Range Comments WBC (test code=WBC) 6.8 10\S\3/uL 4.5-11.0 RBC (test code=RBC) 4.61 10\S\6/uL 4.20-5.60 HGB (test code=HBG) 10.8 g/dL 14.0-18.0 HCT (test code=HCT) 35.7 % 35.0-46.0 MCV (test code=MCV) 77.4 fL 80.0-94.0 MCH (test code=MCH) 23.4 pg 27.0-31.0 MCHC (test code=MCHC) 30.3 g/dL 32.0-36.0 RDW (test code=RDW) 17.6 % 11.5-14.5 PLT (test code=PLT) 300 10\S\3/uL 130-400 MPV (test code=MPV) 8.9 fL 9.4-12.4 NEUTROP # (test code=NE#) 5.0 10\S\3/uL 2.0-8.0 LYMPH # (test code=LY#) 0.8 10\S\3/uL 1.2-4.0 MONOCYTE # (test code=MO#) 0.6 10\S\3/uL 0.0-1.1 EOSINOPH # (test code=EO#) 0.4 10\S\3/uL 0.0-0.7 BASOPHIL # (test code=BA#) 0.0 10\S\3/uL 0.0-0.3 IG # (test code=IG#) 0.02 10\S\3/uL 0.00-0.06 NRBC # (test code=NRBC#) 0.00 10\S\3/uL 0.00-0.01 NEUTROPH % (test code=NE%) 74.3 % 35.0-73.0 LYMPH % (test code=LY%) 11.0 % 20.0-55.0 MONO % (test code=MO%) 8.1 % 2.5-10.0 EOSINOPH % (test code=EO%) 5.7 % 0.0-5.0 BASOPHIL % (test code=BA%) 0.6 % 0.0-2.0 IG % (test code=IG%) 0.3 % 0.0-0.8 NRBC% (test code=NRBC%) 0.0 % 0.0-0.2 MANDIFF (test code=MDIFF) NO NO RBC MORPH (test code=RBCMOR) NORMAL [id number] 23:10:00* Test Item Value Reference Range Comments ACETAMINPH (test code=94M) <2.0 ug/mL 10.0-30.0 COMPREHENSIVE METABOLIC [id number] 23:10:00* Test Item Value Reference Range Comments GLUCOSE (test code=06D) 154 mg/dL 75-100 SODIUM (test code=01A) 141 mmol/L 136-145 POTASSIUM (test code=01B) 3.7 mmol/L 3.6-5.1 CHLORIDE (test code=04A) 110 mmol/L 98-107 CO2 (test code=02A) 26 mmol/L 22-32 ANION GAP (test code=ANG) 8.7 mmol/L BUN (test code=05D) 11 mg/dL 7-18 CREATININE (test code=03E) 0.8 mg/dL 0.7-1.3 BUN/CREA (test code=BCR) 14 12-20 CALCIUM (test code=09D) 8.3 mg/dL 8.3-9.5 BILI TOTAL (test code=11A) 0.1 mg/dL 0.2-1.0 PROTEIN (test code=07D) 7.0 g/dL 6.4-8.2 ALBUMIN (test code=08D) 3.0 g/dL 3.5-4.8 GLOBULIN (test code=GLB) 4.0 g/dL 1.5-3.8 ALB/GLOB (test code=AGRR) 0.8 1.0-2.6 ALK PHOS (test code=35A) 80 IU/L 42-121 AST (test code=30A) 18 IU/L <=42 ALT (test code=31A) 23 IU/L <=78 DRUGS OF [id number] 19:48:00* Test Item Value Reference Range Comments DRUG SCRN (test code=HDOA) URINE DRUG SCREEN This is an unconfirmed screening result and should not be used for non-medical purposes CANNABINOD (test code=88C) Negative NEGATIVE AMPHETAMINE (test code=84A) Negative NEGATIVE BENZODIAZP (test code=86A) POSITIVE NEGATIVE BARBITURAT (test code=85A) Negative NEGATIVE OPIATES (test code=92B) Negative NEGATIVE COCAINE (test code=87A) Negative NEGATIVE PHENCYCLID (test code=66A) Negative NEGATIVE METHADONE (test code=64A) Negative NEGATIVE DOAH (test code=DOAH) URINE DRUG SCREEN Cut-off values are as follows: Cannabinoids 50 ng/mL Cocaine 300 ng/mL Amphetamines 1000 ng/mL Phencyclidine 25 ng/mL Benzodiazepines 200 ng.mL Methadone 300 ng/mL Barbiturates 200 ng/mL Opiates 2000 ng/mL [id number] 19:17:00* Test Item Value Reference Range Comments ACETAMINPH (test code=94M) <10.0 ug/mL 10.0-30.0 [id number] 18:38:00* Test Item Value Reference Range Comments CPK (test code=32A) 450 IU/L 39-308 AMYLASE AND [id number] 18:38:00* Test Item Value Reference Range Comments AMYLASE (test code=10A) 51 U/L 28-100 LIPASE (test code=60A) 141 IU/L 73-393 COMPREHENSIVE METABOLIC [id number] 18:38:00* Test Item Value Reference Range Comments GLUCOSE (test code=06D) 143 mg/dL 75-100 SODIUM (test code=01A) 139 mmol/L 136-145 POTASSIUM (test code=01B) 4.0 mmol/L 3.6-5.1 CHLORIDE (test code=04A) 109 mmol/L 98-107 CO2 (test code=02A) 23 mmol/L 22-32 ANION GAP (test code=ANG) 11.0 mmol/L BUN (test code=05D) 13 mg/dL 7-18 CREATININE (test code=03E) 0.8 mg/dL 0.7-1.3 BUN/CREA (test code=BCR) 16 12-20 CALCIUM (test code=09D) 8.5 mg/dL 8.3-9.5 BILI TOTAL (test code=11A) 0.1 mg/dL 0.2-1.0 PROTEIN (test code=07D) 7.2 g/dL 6.4-8.2 ALBUMIN (test code=08D) 3.2 g/dL 3.5-4.8 GLOBULIN (test code=GLB) 4.0 g/dL 1.5-3.8 ALB/GLOB (test code=AGRR) 0.8 1.0-2.6 ALK PHOS (test code=35A) 84 IU/L 42-121 AST (test code=30A) 25 IU/L <=42 ALT (test code=31A) 25 IU/L <=78 [id number] 18:38:00* Test Item Value Reference Range Comments SALICYLATE (test code=94B) <1.7 mg/dL 2.8-20.0 ALCOHOL BLOOD (ETOH)2017-05-26 18:37:00* Test Item Value Reference Range Comments ETOH (test code=HALC) ETHANOL The result is to be used only for medical purposes ALCOHOL (test code=56A) <10 mg/dL <=10 TROPONIN [id number] 18:32:00* Test Item Value Reference Range Comments TROPONIN I (test code=A84) <0.015 ng/mL 0.000-0.045 XR CHEST 1 VIEW [id number] 18:21:18CLINICAL HISTORY: Medical assessment. LOCATION: D4.FINDINGS: Comparison is made with a previous study dated 2017 Aportable AP view of the chest is dated May 26, 2017 at 1812 hours. There isstable mild cardiomegaly. There are no infiltrates or pleural effusions. Nosignificant skeletal or soft tissue abnormalities. IMPRESSION:1. Stable mild cardiomegaly. No acute disease.PRO TIME AND [id number] 18:21:00* Test Item Value Reference Range Comments PT (test code=TT) 11.7 s 9.8-13.6 INR (test code=INR) 1.0 INRH (test code=INRH) SUGGESTED THERAPEUTIC RANGE FOR INR: 2.5 - 3.5 For Patients with Prosthetic Valves or Patients with recurrent Thromboembolic Events 2.0 - 3.0 For Most Other Applications PTT (test code=PTT) 29.7 s 20.2-38.0 PTTH (test code=PTTH) To monitor the effectiveness of heparin, we offer the Anti-Xa (Heparin Assay). It can be used for either unfractionated or LMW Heparin. Order Code is ANTI-XA CBC (INCLUDES AUTOMATED DIFFERENTIAL)2017-05-26 18:12:00* Test Item Value Reference Range Comments WBC (test code=WBC) 9.0 10\S\3/uL 4.5-11.0 RBC (test code=RBC) 4.20 10\S\6/uL 4.20-5.60 HGB (test code=HBG) 9.9 g/dL 14.0-18.0 HCT (test code=HCT) 32.7 % 35.0-46.0 MCV (test code=MCV) 77.9 fL 80.0-94.0 MCH (test code=MCH) 23.6 pg 27.0-31.0 MCHC (test code=MCHC) 30.3 g/dL 32.0-36.0 RDW (test code=RDW) 17.8 % 11.5-14.5 PLT (test code=PLT) 357 10\S\3/uL 130-400 MPV (test code=MPV) 9.5 fL 9.4-12.4 NEUTROP # (test code=NE#) 6.2 10\S\3/uL 2.0-8.0 LYMPH # (test code=LY#) 1.4 10\S\3/uL 1.2-4.0 MONOCYTE # (test code=MO#) 0.8 10\S\3/uL 0.0-1.1 EOSINOPH # (test code=EO#) 0.6 10\S\3/uL 0.0-0.7 BASOPHIL # (test code=BA#) 0.0 10\S\3/uL 0.0-0.3 IG # (test code=IG#) 0.03 10\S\3/uL 0.00-0.06 NRBC # (test code=NRBC#) 0.00 10\S\3/uL 0.00-0.01 NEUTROPH % (test code=NE%) 69.0 % 35.0-73.0 LYMPH % (test code=LY%) 15.3 % 20.0-55.0 MONO % (test code=MO%) 8.7 % 2.5-10.0 EOSINOPH % (test code=EO%) 6.3 % 0.0-5.0 BASOPHIL % (test code=BA%) 0.4 % 0.0-2.0 IG % (test code=IG%) 0.3 % 0.0-0.8 NRBC% (test code=NRBC%) 0.0 % 0.0-0.2 MANDIFF (test code=MDIFF) NO NO RBC MORPH (test code=RBCMOR) NORMAL DRUGS OF [id number] 21:44:00* Test Item Value Reference Range Comments DRUG SCRN (test code=HDOA) URINE DRUG SCREEN This is an unconfirmed screening result and should not be used for non-medical purposes CANNABINOD (test code=88C) Negative NEGATIVE AMPHETAMINE (test code=84A) Negative NEGATIVE BENZODIAZP (test code=86A) POSITIVE NEGATIVE BARBITURAT (test code=85A) Negative NEGATIVE OPIATES (test code=92B) Negative NEGATIVE COCAINE (test code=87A) Negative NEGATIVE PHENCYCLID (test code=66A) Negative NEGATIVE METHADONE (test code=64A) Negative NEGATIVE DOAH (test code=DOAH) URINE DRUG SCREEN Cut-off values are as follows: Cannabinoids 50 ng/mL Cocaine 300 ng/mL Amphetamines 1000 ng/mL Phencyclidine 25 ng/mL Benzodiazepines 200 ng.mL Methadone 300 ng/mL Barbiturates 200 ng/mL Opiates 2000 ng/mL ALCOHOL BLOOD (ETOH)2017-05-23 21:42:00* Test Item Value Reference Range Comments ETOH (test code=HALC) ETHANOL The result is to be used only for medical purposes ALCOHOL (test code=56A) <10 mg/dL <=10 AMYLASE AND [id number] 21:39:00* Test Item Value Reference Range Comments AMYLASE (test code=10A) 48 U/L 28-100 LIPASE (test code=60A) 132 IU/L 73-393 COMPREHENSIVE METABOLIC [id number] 21:39:00* Test Item Value Reference Range Comments GLUCOSE (test code=06D) 114 mg/dL 75-100 SODIUM (test code=01A) 139 mmol/L 136-145 POTASSIUM (test code=01B) 4.1 mmol/L 3.6-5.1 CHLORIDE (test code=04A) 109 mmol/L 98-107 CO2 (test code=02A) 23 mmol/L 22-32 ANION GAP (test code=ANG) 11.1 mmol/L BUN (test code=05D) 14 mg/dL 7-18 CREATININE (test code=03E) 0.8 mg/dL 0.7-1.3 BUN/CREA (test code=BCR) 18 12-20 CALCIUM (test code=09D) 8.5 mg/dL 8.3-9.5 BILI TOTAL (test code=11A) 0.2 mg/dL 0.2-1.0 PROTEIN (test code=07D) 7.0 g/dL 6.4-8.2 ALBUMIN (test code=08D) 3.2 g/dL 3.5-4.8 GLOBULIN (test code=GLB) 3.8 g/dL 1.5-3.8 ALB/GLOB (test code=AGRR) 0.8 1.0-2.6 ALK PHOS (test code=35A) 86 IU/L 42-121 AST (test code=30A) 27 IU/L <=42 ALT (test code=31A) 24 IU/L <=78 [id number] 21:38:00* Test Item Value Reference Range Comments COLOR (test code=COLU) YELLOW YELLOW CLARITY (test code=CLA) CLEAR CLEAR GLUCOSE UR (test code=UA GLUCOSE) NEGATIVE NEGATIVE BILI UR (test code=BILE) NEGATIVE NEGATIVE KETONES UR (test code=CHELSEA) NEGATIVE NEGATIVE SP GRAVITY (test code=SPGR) 1.023 1.005-1.030 PH UR (test code=PH) 6.0 4.5-8.0 PROTEIN UR (test code=PU) NEGATIVE NEGATIVE UROBIL UR (test code=UROQ) 1.0 EU/dL 0.2-1.0 NITRITE UR (test code=NITRITE) NEGATIVE NEGATIVE BLOOD UR (test code=UA BLOOD) NEGATIVE NEGATIVE LEUK ES UR (test code=LEUK) NEGATIVE NEGATIVE CBC (INCLUDES AUTOMATED DIFFERENTIAL)2017-05-23 21:24:00* Test Item Value Reference Range Comments WBC (test code=WBC) 8.4 10\S\3/uL 4.5-11.0 RBC (test code=RBC) 4.12 10\S\6/uL 4.20-5.60 HGB (test code=HBG) 9.6 g/dL 14.0-18.0 HCT (test code=HCT) 32.7 % 35.0-46.0 MCV (test code=MCV) 79.4 fL 80.0-94.0 MCH (test code=MCH) 23.3 pg 27.0-31.0 MCHC (test code=MCHC) 29.4 g/dL 32.0-36.0 RDW (test code=RDW) 17.8 % 11.5-14.5 PLT (test code=PLT) 325 10\S\3/uL 130-400 MPV (test code=MPV) 9.2 fL 9.4-12.4 NEUTROP # (test code=NE#) 5.8 10\S\3/uL 2.0-8.0 LYMPH # (test code=LY#) 1.2 10\S\3/uL 1.2-4.0 MONOCYTE # (test code=MO#) 0.7 10\S\3/uL 0.0-1.1 EOSINOPH # (test code=EO#) 0.6 10\S\3/uL 0.0-0.7 BASOPHIL # (test code=BA#) 0.1 10\S\3/uL 0.0-0.3 IG # (test code=IG#) 0.03 10\S\3/uL 0.00-0.06 NRBC # (test code=NRBC#) 0.00 10\S\3/uL 0.00-0.01 NEUTROPH % (test code=NE%) 69.5 % 35.0-73.0 LYMPH % (test code=LY%) 14.2 % 20.0-55.0 MONO % (test code=MO%) 8.5 % 2.5-10.0 EOSINOPH % (test code=EO%) 6.7 % 0.0-5.0 BASOPHIL % (test code=BA%) 0.7 % 0.0-2.0 IG % (test code=IG%) 0.4 % 0.0-0.8 NRBC% (test code=NRBC%) 0.0 % 0.0-0.2 MANDIFF (test code=MDIFF) NO NO RBC MORPH (test code=RBCMOR) NORMAL CT CHEST W/ [id number] 22:58:09Chest CT with contrast.Location Code: [id number] HISTORY: [id number]: HemoptysisCOMPARISON: NoneTechnique: Helical CT of the chest was performed following the administrationof IV contrast. 5 mm axial, sagittal and coronal images were obtained. One ormore of the following dose reduction techniques were used: Automated exposurecontrol, adjustment of the mA and or KV according to patient size, and/orutilization of iterative reconstruction technique. DLP: 973 mGy-cm.FINDINGS:Minimal atelectasis is present in the dependent lung bases. The lungs areotherwise clear. There is no nodule, mass, consolidation or effusion. There is no mediastinal, hilar, or axillary adenopathy. There is no pericardialeffusion. The heart is not enlarged. There is no mediastinal hematoma.Images through the upper abdomen are unremarkable. The bones, skin, and surrounding soft tissues are unremarkable. IMPRESSION: 1. Normal chest CT.XR CHEST 1 VIEW [id number] 22:27:54 Portable AP chest, 1 viewLocation Code: [id number] HISTORY: Z04.8: ENCOUNTER FOR EXAMINATION AND OBSERVATION FOR OTHERSPECIFIED REASONSCOMPARISON: 05/11/17COMME NT: The heart size is mildly enlarged with central congestion. No focalconsolida tions. Osseous structures are intact.IMPRESSION: Mild central congestion.ALCOHOL BLOOD (ETOH)2017 22:02:00* Test Item Value Reference Range Comments ETOH (test code=HALC) ETHANOL The result is to be used only for medical purposes ALCOHOL (test code=56A) <10 mg/dL <=10 [id number] 22:02:00* Test Item Value Reference Range Comments ACETAMINPH (test code=94M) <2.0 ug/mL 10.0-30.0 BASIC METABOLIC [id number] 21:54:00* Test Item Value Reference Range Comments GLUCOSE (test code=06D) 149 mg/dL 75-100 SODIUM (test code=01A) 140 mmol/L 136-145 POTASSIUM (test code=01B) 3.5 mmol/L 3.6-5.1 CHLORIDE (test code=04A) 109 mmol/L 98-107 CO2 (test code=02A) 25 mmol/L 22-32 ANION GAP (test code=ANG) 9.5 mmol/L BUN (test code=05D) 13 mg/dL 7-18 CREATININE (test code=03E) 1.0 mg/dL 0.7-1.3 BUN/CREA (test code=BCR) 14 12-20 CALCIUM (test code=09D) 8.2 mg/dL 8.3-9.5 DRUGS OF [id number] 21:52:00* Test Item Value Reference Range Comments DRUG SCRN (test code=HDOA) URINE DRUG SCREEN This is an unconfirmed screening result and should not be used for non-medical purposes CANNABINOD (test code=88C) Negative NEGATIVE AMPHETAMINE (test code=84A) Negative NEGATIVE BENZODIAZP (test code=86A) Negative NEGATIVE BARBITURAT (test code=85A) Negative NEGATIVE OPIATES (test code=92B) Negative NEGATIVE COCAINE (test code=87A) Negative NEGATIVE PHENCYCLID (test code=66A) Negative NEGATIVE METHADONE (test code=64A) Negative NEGATIVE DOAH (test code=DOAH) URINE DRUG SCREEN Cut-off values are as follows: Cannabinoids 50 ng/mL Cocaine 300 ng/mL Amphetamines 1000 ng/mL Phencyclidine 25 ng/mL Benzodiazepines 200 ng.mL Methadone 300 ng/mL Barbiturates 200 ng/mL Opiates 2000 ng/mL [id number] 21:51:00* Test Item Value Reference Range Comments SALICYLATE (test code=94B) <1.7 mg/dL 2.8-20.0 CBC (INCLUDES AUTOMATED DIFFERENTIAL)2017 21:48:00* Test Item Value Reference Range Comments WBC (test code=WBC) 8.2 10\S\3/uL 4.5-11.0 RBC (test code=RBC) 3.67 10\S\6/uL 4.20-5.60 HGB (test code=HBG) 8.6 g/dL 14.0-18.0 HCT (test code=HCT) 28.8 % 35.0-46.0 MCV (test code=MCV) 78.5 fL 80.0-94.0 MCH (test code=MCH) 23.4 pg 27.0-31.0 MCHC (test code=MCHC) 29.9 g/dL 32.0-36.0 RDW (test code=RDW) 17.2 % 11.5-14.5 PLT (test code=PLT) 277 10\S\3/uL 130-400 MPV (test code=MPV) 9.1 fL 9.4-12.4 NEUTROP # (test code=NE#) 5.9 10\S\3/uL 2.0-8.0 LYMPH # (test code=LY#) 1.0 10\S\3/uL 1.2-4.0 MONOCYTE # (test code=MO#) 0.7 10\S\3/uL 0.0-1.1 EOSINOPH # (test code=EO#) 0.5 10\S\3/uL 0.0-0.7 BASOPHIL # (test code=BA#) 0.0 10\S\3/uL 0.0-0.3 IG # (test code=IG#) 0.03 10\S\3/uL 0.00-0.06 NRBC # (test code=NRBC#) 0.00 10\S\3/uL 0.00-0.01 NEUTROPH % (test code=NE%) 72.5 % 35.0-73.0 LYMPH % (test code=LY%) 12.7 % 20.0-55.0 MONO % (test code=MO%) 8.0 % 2.5-10.0 EOSINOPH % (test code=EO%) 5.9 % 0.0-5.0 BASOPHIL % (test code=BA%) 0.5 % 0.0-2.0 IG % (test code=IG%) 0.4 % 0.0-0.8 NRBC% (test code=NRBC%) 0.0 % 0.0-0.2 MANDIFF (test code=MDIFF) NO NO [id number] 21:48:00* Test Item Value Reference Range Comments COLOR (test code=COLU) YELLOW YELLOW CLARITY (test code=CLA) CLEAR CLEAR GLUCOSE UR (test code=UA GLUCOSE) NEGATIVE NEGATIVE BILI UR (test code=BILE) NEGATIVE NEGATIVE KETONES UR (test code=CHELSEA) NEGATIVE NEGATIVE SP GRAVITY (test code=SPGR) 1.022 1.005-1.030 PH UR (test code=PH) 6.0 4.5-8.0 PROTEIN UR (test code=PU) NEGATIVE NEGATIVE UROBIL UR (test code=UROQ) 1.0 EU/dL 0.2-1.0 NITRITE UR (test code=NITRITE) NEGATIVE NEGATIVE BLOOD UR (test code=UA BLOOD) NEGATIVE NEGATIVE LEUK ES UR (test code=LEUK) NEGATIVE NEGATIVE CBC (INCLUDES AUTOMATED DIFFERENTIAL)2017-05-12 06:42:00* Test Item Value Reference Range Comments WBC (test code=WBC) 7.2 10\S\3/uL 4.5-11.0 RBC (test code=RBC) 3.77 10\S\6/uL 4.20-5.60 HGB (test code=HBG) 8.8 g/dL 14.0-18.0 HCT (test code=HCT) 30.2 % 35.0-46.0 MCV (test code=MCV) 80.1 fL 80.0-94.0 MCH (test code=MCH) 23.3 pg 27.0-31.0 MCHC (test code=MCHC) 29.1 g/dL 32.0-36.0 RDW (test code=RDW) 16.9 % 11.5-14.5 PLT (test code=PLT) 245 10\S\3/uL 130-400 MPV (test code=MPV) 9.2 fL 9.4-12.4 NEUTROP # (test code=NE#) 4.3 10\S\3/uL 2.0-8.0 LYMPH # (test code=LY#) 1.4 10\S\3/uL 1.2-4.0 MONOCYTE # (test code=MO#) 0.7 10\S\3/uL 0.0-1.1 EOSINOPH # (test code=EO#) 0.8 10\S\3/uL 0.0-0.7 BASOPHIL # (test code=BA#) 0.0 10\S\3/uL 0.0-0.3 IG # (test code=IG#) 0.02 10\S\3/uL 0.00-0.06 NRBC # (test code=NRBC#) 0.00 10\S\3/uL 0.00-0.01 NEUTROPH % (test code=NE%) 59.4 % 35.0-73.0 LYMPH % (test code=LY%) 19.2 % 20.0-55.0 MONO % (test code=MO%) 9.8 % 2.5-10.0 EOSINOPH % (test code=EO%) 10.7 % 0.0-5.0 BASOPHIL % (test code=BA%) 0.6 % 0.0-2.0 IG % (test code=IG%) 0.3 % 0.0-0.8 NRBC% (test code=NRBC%) 0.0 % 0.0-0.2 MANDIFF (test code=MDIFF) NO NO RBC MORPH (test code=RBCMOR) NORMAL XR CHEST 2 [id number] 10:23:29Location of dictation: [id number] 2 views.HISTORY:R05: COUGHCOMMENT: Compared to 04/25/17. The lungs are symmetrically expanded. There arepatchy bibasilar infiltrates with no confluent opacities, pneumothorax oreffusion The heart and pulmonary vasculature is normal. Soft tissues andskeletal structures are unremarkable.IMPRESSION: Mild bibasilar atelectasis with no focal pneumonia.LIVER [id number] 22:31:00* Test Item Value Reference Range Comments BILI TOTAL (test code=11A) 0.5 mg/dL 0.2-1.0 BILI DIRCT (test code=12A) <0.1 mg/dL 0.0-0.2 BILI INDIR (test code=BILII) 0.4 mg/dL <=0.8 PROTEIN (test code=07D) 7.1 g/dL 6.4-8.2 ALBUMIN (test code=08D) 3.0 g/dL 3.5-4.8 GLOBULIN (test code=GLB) 4.1 g/dL 1.5-3.8 ALB/GLOB (test code=AGRR) 0.7 1.0-2.6 ALK PHOS (test code=35A) 92 IU/L 42-121 AST (test code=30A) 36 IU/L <=42 ALT (test code=31A) 24 IU/L <=78 AMYLASE AND [id number] 22:17:00* Test Item Value Reference Range Comments AMYLASE (test code=10A) 42 U/L 28-100 LIPASE (test code=60A) 127 IU/L 73-393 BASIC METABOLIC [id number] 22:17:00* Test Item Value Reference Range Comments GLUCOSE (test code=06D) 132 mg/dL 75-100 SODIUM (test code=01A) 140 mmol/L 136-145 POTASSIUM (test code=01B) 3.9 mmol/L 3.6-5.1 CHLORIDE (test code=04A) 108 mmol/L 98-107 CO2 (test code=02A) 22 mmol/L 22-32 ANION GAP (test code=ANG) 13.9 mmol/L BUN (test code=05D) 14 mg/dL 7-18 CREATININE (test code=03E) 1.0 mg/dL 0.7-1.3 BUN/CREA (test code=BCR) 14 12-20 CALCIUM (test code=09D) 8.3 mg/dL 8.3-9.5 PRO TIME AND [id number] 22:03:00* Test Item Value Reference Range Comments PT (test code=TT) 12.5 s 9.8-13.6 INR (test code=INR) 1.1 INRH (test code=INRH) SUGGESTED THERAPEUTIC RANGE FOR INR: 2.5 - 3.5 For Patients with Prosthetic Valves or Patients with recurrent Thromboembolic Events 2.0 - 3.0 For Most Other Applications PTT (test code=PTT) 27.4 s 20.2-38.0 PTTH (test code=PTTH) To monitor the effectiveness of heparin, we offer the Anti-Xa (Heparin Assay). It can be used for either unfractionated or LMW Heparin. Order Code is ANTI-XA CBC (INCLUDES AUTOMATED DIFFERENTIAL)2017-05-09 21:59:00* Test Item Value Reference Range Comments WBC (test code=WBC) 8.4 10\S\3/uL 4.5-11.0 RBC (test code=RBC) 3.83 10\S\6/uL 4.20-5.60 HGB (test code=HBG) 9.0 g/dL 14.0-18.0 HCT (test code=HCT) 29.5 % 35.0-46.0 MCV (test code=MCV) 77.0 fL 80.0-94.0 MCH (test code=MCH) 23.5 pg 27.0-31.0 MCHC (test code=MCHC) 30.5 g/dL 32.0-36.0 RDW (test code=RDW) 16.9 % 11.5-14.5 PLT (test code=PLT) 281 10\S\3/uL 130-400 MPV (test code=MPV) 8.9 fL 9.4-12.4 NEUTROP # (test code=NE#) 5.8 10\S\3/uL 2.0-8.0 LYMPH # (test code=LY#) 1.1 10\S\3/uL 1.2-4.0 MONOCYTE # (test code=MO#) 1.1 10\S\3/uL 0.0-1.1 EOSINOPH # (test code=EO#) 0.4 10\S\3/uL 0.0-0.7 BASOPHIL # (test code=BA#) 0.1 10\S\3/uL 0.0-0.3 IG # (test code=IG#) 0.04 10\S\3/uL 0.00-0.06 NRBC # (test code=NRBC#) 0.00 10\S\3/uL 0.00-0.01 NEUTROPH % (test code=NE%) 68.9 % 35.0-73.0 LYMPH % (test code=LY%) 12.8 % 20.0-55.0 MONO % (test code=MO%) 12.7 % 2.5-10.0 EOSINOPH % (test code=EO%) 4.5 % 0.0-5.0 BASOPHIL % (test code=BA%) 0.6 % 0.0-2.0 IG % (test code=IG%) 0.5 % 0.0-0.8 NRBC% (test code=NRBC%) 0.0 % 0.0-0.2 MANDIFF (test code=MDIFF) NO NO TROPONIN [id number] 07:14:00* Test Item Value Reference Range Comments TROPONIN I (test code=A84) 0.036 ng/mL 0.000-0.045 CBC (INCLUDES AUTOMATED DIFFERENTIAL)2017-05-02 06:09:00* Test Item Value Reference Range Comments WBC (test code=WBC) 7.4 10\S\3/uL 4.5-11.0 RBC (test code=RBC) 4.25 10\S\6/uL 4.20-5.60 HGB (test code=HBG) 10.0 g/dL 14.0-18.0 HCT (test code=HCT) 34.4 % 35.0-46.0 MCV (test code=MCV) 80.9 fL 80.0-94.0 MCH (test code=MCH) 23.5 pg 27.0-31.0 MCHC (test code=MCHC) 29.1 g/dL 32.0-36.0 RDW (test code=RDW) 17.2 % 11.5-14.5 PLT (test code=PLT) 263 10\S\3/uL 130-400 MPV (test code=MPV) 9.3 fL 9.4-12.4 NEUTROP # (test code=NE#) 4.1 10\S\3/uL 2.0-8.0 LYMPH # (test code=LY#) 1.8 10\S\3/uL 1.2-4.0 MONOCYTE # (test code=MO#) 0.9 10\S\3/uL 0.0-1.1 EOSINOPH # (test code=EO#) 0.6 10\S\3/uL 0.0-0.7 BASOPHIL # (test code=BA#) 0.0 10\S\3/uL 0.0-0.3 IG # (test code=IG#) 0.03 10\S\3/uL 0.00-0.06 NRBC # (test code=NRBC#) 0.00 10\S\3/uL 0.00-0.01 NEUTROPH % (test code=NE%) 55.6 % 35.0-73.0 LYMPH % (test code=LY%) 24.4 % 20.0-55.0 MONO % (test code=MO%) 11.6 % 2.5-10.0 EOSINOPH % (test code=EO%) 7.6 % 0.0-5.0 BASOPHIL % (test code=BA%) 0.4 % 0.0-2.0 IG % (test code=IG%) 0.4 % 0.0-0.8 NRBC% (test code=NRBC%) 0.0 % 0.0-0.2 MANDIFF (test code=MDIFF) NO NO RBC MORPH (test code=RBCMOR) NORMAL CARDIAC [id number] 23:45:00* Test Item Value Reference Range Comments TROPONIN I (test code=A84) 0.059 ng/mL 0.000-0.045 CKMB (test code=A49) 2.0 ng/mL <=3.6 CPK (test code=32A) 287 IU/L 39-308 [id number] 18:23:00* Test Item Value Reference Range Comments Hb A1C % (test code=HBA) 6.7 % 4.2-6.3 LIPID [id number] 18:13:00* Test Item Value Reference Range Comments CHOLESTROL (test code=44A) 145 mg/dL 140-200 TRIGLYCERI (test code=42B) 97 mg/dL <=149 HDL (test code=83D) 36.0 mg/dL 40.0-60.0 LDL (test code=34B) 104 mg/dL <=99 CHL/HDL (test code=CHR) 4.0 0.0-3.4 CARDIAC [id number] 17:06:00* Test Item Value Reference Range Comments TROPONIN I (test code=A84) 0.063 ng/mL 0.000-0.045 CKMB (test code=A49) 2.4 ng/mL <=3.6 CPK (test code=32A) 346 IU/L 39-308 XR ABDOMEN 2 VIEWS W/PA [id number] 13:00:28Exam: Abdomen 2 views with PA chest.Location: Z4Iqoxtbp: R11.2: NAUSEA WITH VOMITING, UNSPECIFIEDFindings:Chest PA: The lungs are clear. The pulmonary vasculature is normal. The heartsize is within normal limits. The mediastinal silhouette is unremarkable.Abdomen 2 views: Supine and erect views of the abdomen demonstrate anunremarkable bowel gas pattern. The large and small intestine are normal in caliber. No organomegaly, abnormal masses or calcifications are seen. Nopneumato sis or free air is present. An IVC filter is in place.Impression:Unremarkable ex am.ALCOHOL BLOOD (ETOH)2017-05-01 12:45:00* Test Item Value Reference Range Comments ETOH (test code=HALC) ETHANOL The result is to be used only for medical purposes ALCOHOL (test code=56A) <10 mg/dL <=10 BRAIN NATRIURETIC [id number] 12:33:00* Test Item Value Reference Range Comments proBNP (test code=PBNP) 43 pg/mL 0-125 CARDIAC [id number] 12:31:00* Test Item Value Reference Range Comments TROPONIN I (test code=A84) 0.060 ng/mL 0.000-0.045 CKMB (test code=A49) 2.6 ng/mL <=3.6 CPK (test code=32A) 357 IU/L 39-308 COMPREHENSIVE METABOLIC [id number] 12:30:00* Test Item Value Reference Range Comments GLUCOSE (test code=06D) 156 mg/dL 75-100 SODIUM (test code=01A) 139 mmol/L 136-145 POTASSIUM (test code=01B) 4.2 mmol/L 3.6-5.1 CHLORIDE (test code=04A) 109 mmol/L 98-107 CO2 (test code=02A) 23 mmol/L 22-32 ANION GAP (test code=ANG) 11.2 mmol/L BUN (test code=05D) 14 mg/dL 7-18 CREATININE (test code=03E) 0.8 mg/dL 0.7-1.3 BUN/CREA (test code=BCR) 17 12-20 CALCIUM (test code=09D) 8.3 mg/dL 8.3-9.5 BILI TOTAL (test code=11A) 0.2 mg/dL 0.2-1.0 PROTEIN (test code=07D) 7.1 g/dL 6.4-8.2 ALBUMIN (test code=08D) 3.3 g/dL 3.5-4.8 GLOBULIN (test code=GLB) 3.8 g/dL 1.5-3.8 ALB/GLOB (test code=AGRR) 0.9 1.0-2.6 ALK PHOS (test code=35A) 89 IU/L 42-121 AST (test code=30A) 22 IU/L <=42 ALT (test code=31A) 20 IU/L <=78 AMYLASE AND [id number] 12:26:00* Test Item Value Reference Range Comments AMYLASE (test code=10A) 57 U/L 28-100 LIPASE (test code=60A) 152 IU/L 73-393 PRO TIME AND [id number] 12:24:00* Test Item Value Reference Range Comments PT (test code=TT) 12.1 s 9.8-13.6 INR (test code=INR) 1.1 INRH (test code=INRH) SUGGESTED THERAPEUTIC RANGE FOR INR: 2.5 - 3.5 For Patients with Prosthetic Valves or Patients with recurrent Thromboembolic Events 2.0 - 3.0 For Most Other Applications PTT (test code=PTT) 27.1 s 20.2-38.0 PTTH (test code=PTTH) To monitor the effectiveness of heparin, we offer the Anti-Xa (Heparin Assay). It can be used for either unfractionated or LMW Heparin. Order Code is ANTI-XA CBC (INCLUDES AUTOMATED DIFFERENTIAL)2017-05-01 12:19:00* Test Item Value Reference Range Comments WBC (test code=WBC) 7.9 10\S\3/uL 4.5-11.0 RBC (test code=RBC) 4.22 10\S\6/uL 4.20-5.60 HGB (test code=HBG) 9.9 g/dL 14.0-18.0 HCT (test code=HCT) 32.9 % 35.0-46.0 MCV (test code=MCV) 78.0 fL 80.0-94.0 MCH (test code=MCH) 23.5 pg 27.0-31.0 MCHC (test code=MCHC) 30.1 g/dL 32.0-36.0 RDW (test code=RDW) 17.1 % 11.5-14.5 PLT (test code=PLT) 307 10\S\3/uL 130-400 MPV (test code=MPV) 8.7 fL 9.4-12.4 NEUTROP # (test code=NE#) 5.8 10\S\3/uL 2.0-8.0 LYMPH # (test code=LY#) 1.1 10\S\3/uL 1.2-4.0 MONOCYTE # (test code=MO#) 0.6 10\S\3/uL 0.0-1.1 EOSINOPH # (test code=EO#) 0.3 10\S\3/uL 0.0-0.7 BASOPHIL # (test code=BA#) 0.0 10\S\3/uL 0.0-0.3 IG # (test code=IG#) 0.02 10\S\3/uL 0.00-0.06 NRBC # (test code=NRBC#) 0.00 10\S\3/uL 0.00-0.01 NEUTROPH % (test code=NE%) 73.2 % 35.0-73.0 LYMPH % (test code=LY%) 14.0 % 20.0-55.0 MONO % (test code=MO%) 7.7 % 2.5-10.0 EOSINOPH % (test code=EO%) 4.3 % 0.0-5.0 BASOPHIL % (test code=BA%) 0.5 % 0.0-2.0 IG % (test code=IG%) 0.3 % 0.0-0.8 NRBC% (test code=NRBC%) 0.0 % 0.0-0.2 MANDIFF (test code=MDIFF) NO NO RBC MORPH (test code=RBCMOR) NORMAL OCCULT [id number] 11:56:00* Test Item Value Reference Range Comments Direct Exam (test code=DE1) NEGATIVE FOR OCCULT BLOOD DRUGS OF [id number] 11:48:00* Test Item Value Reference Range Comments DRUG SCRN (test code=HDOA) URINE DRUG SCREEN This is an unconfirmed screening result and should not be used for non-medical purposes CANNABINOD (test code=88C) Negative NEGATIVE AMPHETAMINE (test code=84A) Negative NEGATIVE BENZODIAZP (test code=86A) Negative NEGATIVE BARBITURAT (test code=85A) Negative NEGATIVE OPIATES (test code=92B) Negative NEGATIVE COCAINE (test code=87A) Negative NEGATIVE PHENCYCLID (test code=66A) Negative NEGATIVE METHADONE (test code=64A) Negative NEGATIVE DOAH (test code=DOAH) URINE DRUG SCREEN Cut-off values are as follows: Cannabinoids 50 ng/mL Cocaine 300 ng/mL Amphetamines 1000 ng/mL Phencyclidine 25 ng/mL Benzodiazepines 200 ng.mL Methadone 300 ng/mL Barbiturates 200 ng/mL Opiates 2000 ng/mL [id number] 11:41:00* Test Item Value Reference Range Comments COLOR (test code=COLU) YELLOW YELLOW CLARITY (test code=CLA) CLEAR CLEAR GLUCOSE UR (test code=UA GLUCOSE) NEGATIVE NEGATIVE BILI UR (test code=BILE) NEGATIVE NEGATIVE KETONES UR (test code=CHELSEA) NEGATIVE NEGATIVE SP GRAVITY (test code=SPGR) 1.023 1.005-1.030 PH UR (test code=PH) 6.0 4.5-8.0 PROTEIN UR (test code=PU) NEGATIVE NEGATIVE UROBIL UR (test code=UROQ) 1.0 EU/dL 0.2-1.0 NITRITE UR (test code=NITRITE) NEGATIVE NEGATIVE BLOOD UR (test code=UA BLOOD) NEGATIVE NEGATIVE LEUK ES UR (test code=LEUK) NEGATIVE NEGATIVE XR CHEST 1 VIEW [id number] 15:08:59Portable chest one view.HISTORY: Chest painLocation [id number]: Comparison chest 1 view 04/17/17. No pleural effusion or pneumothorax.The lungs are clear and normally expanded. The cardiac silhouette isunremarkable. Skeletal structures are normal in appearance.IMPRESSION: No active disease in the chest.URINALYSIS WITH MICRO 2017-04-25 14:52:00* Test Item Value Reference Range Comments COLOR (test code=COLU) DK YELLOW YELLOW CLARITY (test code=CLA) CLEAR CLEAR GLUCOSE UR (test code=UA GLUCOSE) NEGATIVE NEGATIVE BILI UR (test code=BILE) NEGATIVE NEGATIVE KETONES UR (test code=CHELSEA) NEGATIVE NEGATIVE SP GRAVITY (test code=SPGR) 1.027 1.005-1.030 PH UR (test code=PH) 6.0 4.5-8.0 PROTEIN UR (test code=PU) 2+ NEGATIVE UROBIL UR (test code=UROQ) 1.0 EU/dL 0.2-1.0 NITRITE UR (test code=NITRITE) NEGATIVE NEGATIVE BLOOD UR (test code=UA BLOOD) NEGATIVE NEGATIVE LEUK ES UR (test code=LEUK) NEGATIVE NEGATIVE WBC UR (test code=UWBC) 2 /HPF 0-3 RBC UR (test code=URBC) 0 /HPF 0-2 EPITH UR (test code=UEPC) FEW /LPF NONE BACTERIA UR (test code=UBACT) NONE /HPF NONE CAST UR (test code=CAST) /LPF NONE CRYSTAL UR (test code=CRYU) / LPF NONE MUCUS UR (test code=MUC) MODERATE / HPF NONE AMORPH UR (test code=SRINI) / HPF NONE TRICH UR (test code=UTRICH) /HPF NONE YEAST UR (test code=UY) /HPF NONE SPERM UR (test code=USPERM) /HPF NONE [id number] 07:01:00* Test Item Value Reference Range Comments ACETAMINPH (test code=94M) <2.0 ug/mL 10.0-30.0 LIVER [id number] 07:01:00* Test Item Value Reference Range Comments BILI TOTAL (test code=11A) 0.4 mg/dL 0.2-1.0 BILI DIRCT (test code=12A) <0.1 mg/dL 0.0-0.2 PROTEIN (test code=07D) 6.4 g/dL 6.4-8.2 ALBUMIN (test code=08D) 2.6 g/dL 3.5-4.8 GLOBULIN (test code=GLB) 3.8 g/dL 1.5-3.8 ALB/GLOB (test code=AGRR) 0.7 1.0-2.6 ALK PHOS (test code=35A) 73 IU/L 42-121 AST (test code=30A) 13 IU/L <=42 ALT (test code=31A) 16 IU/L <=78 U/S [id number] 15:37:26ULTRASOUND-GUIDED CENTRAL LINE PLACEMENTCLINICAL HISTORY: [id number]: Insertion of peripherally inserted centralcatheter. Suicidal ideation, acetaminophen overdose.PROCEDURE: Written informed consent was obtained. The right neck was evaluatedwith real-time ultrasound, and the internal jugular vein was deemed to bepatent and compressible. The skin overlying the area was sterilely prepped anddraped and anesthetized with 1% lidocaine. All elements of maximal sterilebarrier technique were employed. Under real-time ultrasound guidance, access into the right internal jugularvein was gained. An image was saved to the permanent record. A J-wire wasadvanced centrally. The needle was removed, and the soft tissues were dilated.Finally, a triple-lumen catheter was placed over the wire. The wire wasremoved. All ports aspirated and flushed well. The catheter was then secured toskin with nonabsorbable suture. The patient tolerated the procedure well.FINDING S:Position: A final placement radiograph demonstrates the tip of the catheter at the junction of the SVC and right atrium.Complications: None IMPRESSION: Suc cessful placement of right internal jugular vein central line. The line isready for use.Location: R16XR CENTRAL LINE [id number] 15:37:26ULTRASOUND- GUIDED CENTRAL LINE PLACEMENTCLINICAL HISTORY: [id number]: Insertion of peripherally inserted centralcatheter. Suicidal ideation, acetaminophen over dose.PROCEDURE: Written informed consent was obtained. The right neck was evalua tedwith real-time ultrasound, and the internal jugular vein was deemed to bepate nt and compressible. The skin overlying the area was sterilely prepped anddraped and anesthetized with 1% lidocaine. All elements of [facility] tech nique were employed. Under real-time ultrasound guidance, access into the right internal jugularvein was gained. An image was saved to the permanent record. A J-wire wasadvanced centrally. The needle was removed, and the soft tissues were dilated.Finally, a triple-lumen catheter was placed over the wire. The wire was removed. All ports aspirated and flushed well. The catheter was then secured tos kin with nonabsorbable suture. The patient tolerated the procedure well.FINDING S:Position: A final placement radiograph demonstrates the tip of the catheter at the junction of the SVC and right atrium.Complications: None IMPRESSION: Suc cessful placement of right internal jugular vein central line. The line isready for use.Location: R16XR CHEST 1 VIEW [id number] 12:24:07Portable AP chest, 1 viewLocation Code: [id number] HISTORY: [id number]: Insertion of peripherally inserted centralcatheterCOMPARISON: 03/11/17COMMENT: Right IJ c entral line has been inserted with its tip in the superior vena cava.No pneumoth orax. The lungs are clear and well inflated. The costophrenic anglesare sharp. T he cardiomediastinal silhouette is mildly enlarged. The bones areintact.IMPRESSI ON: Uneventful insertion of right IJ central line.LIVER [id number] 09:24:00* Test Item Value Reference Range Comments BILI TOTAL (test code=11A) 0.4 mg/dL 0.2-1.0 BILI DIRCT (test code=12A) <0.1 mg/dL 0.0-0.2 BILI INDIR (test code=BILII) 0.0 mg/dL <=0.8 PROTEIN (test code=07D) 5.9 g/dL 6.4-8.2 ALBUMIN (test code=08D) 2.5 g/dL 3.5-4.8 GLOBULIN (test code=GLB) 3.4 g/dL 1.5-3.8 ALB/GLOB (test code=AGRR) 0.7 1.0-2.6 ALK PHOS (test code=35A) 69 IU/L 42-121 AST (test code=30A) 18 IU/L <=42 ALT (test code=31A) 13 IU/L <=78 [id number] 07:49:00* Test Item Value Reference Range Comments ACETAMINPH (test code=94M) 154.4 ug/mL 10.0-30.0 CBC WITH [id number] 07:41:00* Test Item Value Reference Range Comments WBC (test code=WBC) 6.2 10\S\3/uL 4.5-11.0 RBC (test code=RBC) 4.00 10\S\6/uL 4.20-5.60 HGB (test code=HBG) 9.3 g/dL 14.0-18.0 HCT (test code=HCT) 31.6 % 35.0-46.0 MCV (test code=MCV) 79.0 fL 80.0-94.0 MCH (test code=MCH) 23.3 pg 27.0-31.0 MCHC (test code=MCHC) 29.4 g/dL 32.0-36.0 RDW (test code=RDW) 16.7 % 11.5-14.5 PLT (test code=PLT) 225 10\S\3/uL 130-400 MPV (test code=MPV) 9.3 fL 9.4-12.4 NEUTROP # (test code=NE#) 5.0 10\S\3/uL 2.0-8.0 LYMPH # (test code=LY#) 0.9 10\S\3/uL 1.2-4.0 MONOCYTE # (test code=MO#) 0.3 10\S\3/uL 0.0-1.1 EOSINOPH # (test code=EO#) 0.0 10\S\3/uL 0.0-0.7 BASOPHIL # (test code=BA#) 0.0 10\S\3/uL 0.0-0.3 IG # (test code=IG#) 0.02 10\S\3/uL 0.00-0.06 NRBC # (test code=NRBC#) 0.00 10\S\3/uL 0.00-0.01 NEUTROPH % (test code=NE%) 80.1 % 35.0-73.0 LYMPH % (test code=LY%) 14.5 % 20.0-55.0 MONO % (test code=MO%) 4.3 % 2.5-10.0 EOSINOPH % (test code=EO%) 0.5 % 0.0-5.0 BASOPHIL % (test code=BA%) 0.3 % 0.0-2.0 IG % (test code=IG%) 0.3 % 0.0-0.8 NRBC% (test code=NRBC%) 0.0 % 0.0-0.2 PLT EST (test code=PLTEST) ADEQUATE ADEQUATE PLT MORPH (test code=PLTMOR) NORMAL (1.5-3 um) NORMAL HYPOCHROM (test code=HYPOC) 2+ NONE ECHINO (test code=ECHINO) 1+ NONE OVALOCYTES (test code=OVA) 1+ NONE SCHISTO (test code=BETHEL) 1+ NONE BASIC METABOLIC [id number] 06:32:00* Test Item Value Reference Range Comments GLUCOSE (test code=06D) 148 mg/dL 75-100 SODIUM (test code=01A) 138 mmol/L 136-145 POTASSIUM (test code=01B) 4.1 mmol/L 3.6-5.1 CHLORIDE (test code=04A) 110 mmol/L 98-107 CO2 (test code=02A) 20 mmol/L 22-32 ANION GAP (test code=ANG) 12.1 mmol/L BUN (test code=05D) 9 mg/dL 7-18 CREATININE (test code=03E) 1.0 mg/dL 0.7-1.3 BUN/CREA (test code=BCR) 10 12-20 CALCIUM (test code=09D) 8.2 mg/dL 8.3-9.5 DRUGS OF [id number] 02:09:00* Test Item Value Reference Range Comments DRUG SCRN (test code=HDOA) URINE DRUG SCREEN This is an unconfirmed screening result and should not be used for non-medical purposes CANNABINOD (test code=88C) Negative NEGATIVE AMPHETAMINE (test code=84A) Negative NEGATIVE BENZODIAZP (test code=86A) Negative NEGATIVE BARBITURAT (test code=85A) Negative NEGATIVE OPIATES (test code=92B) Negative NEGATIVE COCAINE (test code=87A) Negative NEGATIVE PHENCYCLID (test code=66A) Negative NEGATIVE METHADONE (test code=64A) Negative NEGATIVE DOAH (test code=DOAH) URINE DRUG SCREEN Cut-off values are as follows: Cannabinoids 50 ng/mL Cocaine 300 ng/mL Amphetamines 1000 ng/mL Phencyclidine 25 ng/mL Benzodiazepines 200 ng.mL Methadone 300 ng/mL Barbiturates 200 ng/mL Opiates 2000 ng/mL [id number] 02:00:00* Test Item Value Reference Range Comments COLOR (test code=COLU) YELLOW YELLOW CLARITY (test code=CLA) CLEAR CLEAR GLUCOSE UR (test code=UA GLUCOSE) NEGATIVE NEGATIVE BILI UR (test code=BILE) NEGATIVE NEGATIVE KETONES UR (test code=CHELSEA) NEGATIVE NEGATIVE SP GRAVITY (test code=SPGR) 1.017 1.005-1.030 PH UR (test code=PH) 6.0 4.5-8.0 PROTEIN UR (test code=PU) NEGATIVE NEGATIVE UROBIL UR (test code=UROQ) 0.2 EU/dL 0.2-1.0 NITRITE UR (test code=NITRITE) NEGATIVE NEGATIVE BLOOD UR (test code=UA BLOOD) NEGATIVE NEGATIVE LEUK ES UR (test code=LEUK) NEGATIVE NEGATIVE Venous Blood [id number] 01:59:00* Test Item Value Reference Range Comments VpH (test code=VPHRT) 7.343 7.300-7.400 VpCO2 (test code=PFFQ9UQ) 37.5 mmHg 40.0-50.0 VpO2 (test code=VPO2RT) 39.7 mmHg 30.0-40.0 HCO3? (test code=HCO3) 19.8 mmol/L 22.0-26.0 JORGE (test code=JORGE) -4.9 mmol/L -3.0-3.0 tHb (test code=THBRT) 9.3 g/dL 14.0-18.0 vsO2 (test code=VSO2RT) 67.1 % 55.0-75.0 FO2Hb (test code=SH9JLXRZ) 65.9 % FCOHb (test code=FCOHBRTV) 0.7 % FMetHb (test code=FMETHBRTV) 1.0 % ABGTEMP (test code=ABGTEMP) * Temp Corrected Values* ABGTEMP (test code=ABGTEMP.) 37.0 ?C pH (T) (test code=PHTEMPV) 7.343 7.300-7.400 pCO2 (T) (test code=BAM6QWQCL) 37.5 mmHg 40.0-50.0 pO2 (T) (test code=MS1DAMYF) 39.7 mmHg 30.0-40.0 Device (test code=DEVICE) FI02 (test code=FI02) 21.0 % Liter_flow (test code=LF) VENPAR (test code=VENPAR) * Ventilator Parameters * SIMV (test code=SIMV) A/C (test code=A/C) CPAP (test code=CPAP) PEEP (test code=PEEP) PS (test code=PS) PIP (test code=PIP) I_Time (test code=ITIME) Vt (test code=VT) BIPAP INSP (test code=BIPAPINP) BIPAP EXP (test code=BIPAPEXP) SAMPLE SITE (test code=SSITE) Vein COMMENT (test code=CO) [id number] 01:02:00* Test Item Value Reference Range Comments ACETAMINPH (test code=94M) 331.8 ug/mL 10.0-30.0 ALCOHOL BLOOD (ETOH)2017-04-17 00:58:00* Test Item Value Reference Range Comments ETOH (test code=HALC) ETHANOL The result is to be used only for medical purposes ALCOHOL (test code=56A) <10 mg/dL <=10 COMPREHENSIVE METABOLIC [id number] 00:58:00* Test Item Value Reference Range Comments GLUCOSE (test code=06D) 186 mg/dL 75-100 SODIUM (test code=01A) 138 mmol/L 136-145 POTASSIUM (test code=01B) 3.5 mmol/L 3.6-5.1 CHLORIDE (test code=04A) 107 mmol/L 98-107 CO2 (test code=02A) 19 mmol/L 22-32 ANION GAP (test code=ANG) 15.5 mmol/L BUN (test code=05D) 9 mg/dL 7-18 CREATININE (test code=03E) 1.1 mg/dL 0.7-1.3 BUN/CREA (test code=BCR) 8 12-20 CALCIUM (test code=09D) 8.3 mg/dL 8.3-9.5 BILI TOTAL (test code=11A) 0.2 mg/dL 0.2-1.0 PROTEIN (test code=07D) 7.2 g/dL 6.4-8.2 ALBUMIN (test code=08D) 3.2 g/dL 3.5-4.8 GLOBULIN (test code=GLB) 4.0 g/dL 1.5-3.8 ALB/GLOB (test code=AGRR) 0.8 1.0-2.6 ALK PHOS (test code=35A) 84 IU/L 42-121 AST (test code=30A) 16 IU/L <=42 ALT (test code=31A) 16 IU/L <=78 PRO TIME AND [id number] 00:48:00* Test Item Value Reference Range Comments PT (test code=TT) 11.3 s 9.8-13.6 INR (test code=INR) 1.0 INRH (test code=INRH) SUGGESTED THERAPEUTIC RANGE FOR INR: 2.5 - 3.5 For Patients with Prosthetic Valves or Patients with recurrent Thromboembolic Events 2.0 - 3.0 For Most Other Applications PTT (test code=PTT) 26.9 s 20.2-38.0 PTTH (test code=PTTH) To monitor the effectiveness of heparin, we offer the Anti-Xa (Heparin Assay). It can be used for either unfractionated or LMW Heparin. Order Code is ANTI-XA [id number] 00:47:00* Test Item Value Reference Range Comments SALICYLATE (test code=94B) <1.7 mg/dL 2.8-20.0 CBC (INCLUDES AUTOMATED DIFFERENTIAL)2017-04-17 00:35:00* Test Item Value Reference Range Comments WBC (test code=WBC) 8.6 10\S\3/uL 4.5-11.0 RBC (test code=RBC) 3.93 10\S\6/uL 4.20-5.60 HGB (test code=HBG) 9.2 g/dL 14.0-18.0 HCT (test code=HCT) 31.0 % 35.0-46.0 MCV (test code=MCV) 78.9 fL 80.0-94.0 MCH (test code=MCH) 23.4 pg 27.0-31.0 MCHC (test code=MCHC) 29.7 g/dL 32.0-36.0 RDW (test code=RDW) 16.7 % 11.5-14.5 PLT (test code=PLT) 292 10\S\3/uL 130-400 MPV (test code=MPV) 9.0 fL 9.4-12.4 NEUTROP # (test code=NE#) 5.9 10\S\3/uL 2.0-8.0 LYMPH # (test code=LY#) 1.5 10\S\3/uL 1.2-4.0 MONOCYTE # (test code=MO#) 0.8 10\S\3/uL 0.0-1.1 EOSINOPH # (test code=EO#) 0.3 10\S\3/uL 0.0-0.7 BASOPHIL # (test code=BA#) 0.1 10\S\3/uL 0.0-0.3 IG # (test code=IG#) 0.03 10\S\3/uL 0.00-0.06 NRBC # (test code=NRBC#) 0.00 10\S\3/uL 0.00-0.01 NEUTROPH % (test code=NE%) 69.0 % 35.0-73.0 LYMPH % (test code=LY%) 17.3 % 20.0-55.0 MONO % (test code=MO%) 9.5 % 2.5-10.0 EOSINOPH % (test code=EO%) 3.0 % 0.0-5.0 BASOPHIL % (test code=BA%) 0.8 % 0.0-2.0 IG % (test code=IG%) 0.4 % 0.0-0.8 NRBC% (test code=NRBC%) 0.0 % 0.0-0.2 MANDIFF (test code=MDIFF) NO NO RBC MORPH (test code=RBCMOR) NORMAL COMPREHENSIVE METABOLIC [id number] 14:55:00* Test Item Value Reference Range Comments GLUCOSE (test code=06D) 108 mg/dL 75-100 SODIUM (test code=01A) 139 mmol/L 136-145 POTASSIUM (test code=01B) 3.9 mmol/L 3.6-5.1 CHLORIDE (test code=04A) 107 mmol/L 98-107 CO2 (test code=02A) 25 mmol/L 22-32 ANION GAP (test code=ANG) 10.9 mmol/L BUN (test code=05D) 14 mg/dL 7-18 CREATININE (test code=03E) 0.8 mg/dL 0.7-1.3 BUN/CREA (test code=BCR) 18 12-20 CALCIUM (test code=09D) 8.6 mg/dL 8.3-9.5 BILI TOTAL (test code=11A) 0.3 mg/dL 0.2-1.0 PROTEIN (test code=07D) 8.0 g/dL 6.4-8.2 ALBUMIN (test code=08D) 3.4 g/dL 3.5-4.8 GLOBULIN (test code=GLB) 4.6 g/dL 1.5-3.8 ALB/GLOB (test code=AGRR) 0.7 1.0-2.6 ALK PHOS (test code=35A) 86 IU/L 42-121 AST (test code=30A) 18 IU/L <=42 ALT (test code=31A) 30 IU/L <=78 XR ABDOMEN 2 VIEWS W/PA [id number] 14:43:32Abdominal series, 3 views.Location Code: [id number] HISTORY: Abdominal pain.COMPARISON: None.COMMENTS: A frontal view of the chest shows the lungs to be clear andwell- inflated. The costophrenic angles are sharp. The cardiomediastinalsilhouette is unremarkable.Supine and upright views of the abdomen demonstrate a normal bowel gas pattern. Stool and gas are present throughout the colon and rectum. Vena cava filterseen to the right of the midline at L2-3. Surgical clips in the g allbladderfossa.IMPRESSION: No acute abnormalityCBC (INCLUDES AUTOMATED DIFFERENTIAL)2017-03-21 14:36:00* Test Item Value Reference Range Comments WBC (test code=WBC) 7.5 10\S\3/uL 4.5-11.0 RBC (test code=RBC) 4.35 10\S\6/uL 4.20-5.60 HGB (test code=HBG) 10.5 g/dL 14.0-18.0 HCT (test code=HCT) 32.8 % 35.0-46.0 MCV (test code=MCV) 75.4 fL 80.0-94.0 MCH (test code=MCH) 24.1 pg 27.0-31.0 MCHC (test code=MCHC) 32.0 g/dL 32.0-36.0 RDW (test code=RDW) 16.7 % 11.5-14.5 PLT (test code=PLT) 283 10\S\3/uL 130-400 MPV (test code=MPV) 8.9 fL 9.4-12.4 NEUTROP # (test code=NE#) 5.2 10\S\3/uL 2.0-8.0 LYMPH # (test code=LY#) 1.3 10\S\3/uL 1.2-4.0 MONOCYTE # (test code=MO#) 0.6 10\S\3/uL 0.0-1.1 EOSINOPH # (test code=EO#) 0.3 10\S\3/uL 0.0-0.7 BASOPHIL # (test code=BA#) 0.0 10\S\3/uL 0.0-0.3 IG # (test code=IG#) 0.02 10\S\3/uL 0.00-0.06 NRBC # (test code=NRBC#) 0.00 10\S\3/uL 0.00-0.01 NEUTROPH % (test code=NE%) 69.8 % 35.0-73.0 LYMPH % (test code=LY%) 17.4 % 20.0-55.0 MONO % (test code=MO%) 8.5 % 2.5-10.0 EOSINOPH % (test code=EO%) 3.5 % 0.0-5.0 BASOPHIL % (test code=BA%) 0.5 % 0.0-2.0 IG % (test code=IG%) 0.3 % 0.0-0.8 NRBC% (test code=NRBC%) 0.0 % 0.0-0.2 MANDIFF (test code=MDIFF) NO NO RBC MORPH (test code=RBCMOR) NORMAL U/S VENOUS DOPPLER BG LOW [id number] 15:45:15Exam: Bilateral lower extremity venous Doppler.Location: [id number]: swelling, hx of dvtTechnique: Grayscale, color flow and spectral analysis of the common femoral,profunda femoris, femoral, popliteal, saphenous and calf veins of both lowerextremities was performed.Findings:There is normal flow, phasicity, compressibility and augmentation of the deepvenous system of both lower extremities. No DVT is found in either leg.Impression:Negative for DVT.CARDIAC [id number] 04:46:00* Test Item Value Reference Range Comments TROPONIN I (test code=A84) <0.015 ng/mL 0.000-0.045 CKMB (test code=A49) 3.3 ng/mL <=3.6 CPK (test code=32A) 792 IU/L 39-308 BASIC METABOLIC [id number] 04:24:00* Test Item Value Reference Range Comments GLUCOSE (test code=06D) 113 mg/dL 75-100 SODIUM (test code=01A) 138 mmol/L 136-145 POTASSIUM (test code=01B) 3.4 mmol/L 3.6-5.1 CHLORIDE (test code=04A) 108 mmol/L 98-107 CO2 (test code=02A) 22 mmol/L 22-32 ANION GAP (test code=ANG) 11.4 mmol/L BUN (test code=05D) 17 mg/dL 7-18 CREATININE (test code=03E) 0.6 mg/dL 0.7-1.3 BUN/CREA (test code=BCR) 27 12-20 CALCIUM (test code=09D) 8.3 mg/dL 8.3-9.5 CBC (INCLUDES AUTOMATED DIFFERENTIAL)2017-03-12 04:18:00* Test Item Value Reference Range Comments WBC (test code=WBC) 7.7 10\S\3/uL 4.5-11.0 RBC (test code=RBC) 3.81 10\S\6/uL 4.20-5.60 HGB (test code=HBG) 9.3 g/dL 14.0-18.0 HCT (test code=HCT) 30.4 % 35.0-46.0 MCV (test code=MCV) 79.8 fL 80.0-94.0 MCH (test code=MCH) 24.4 pg 27.0-31.0 MCHC (test code=MCHC) 30.6 g/dL 32.0-36.0 RDW (test code=RDW) 17.4 % 11.5-14.5 PLT (test code=PLT) 236 10\S\3/uL 130-400 MPV (test code=MPV) 9.4 fL 9.4-12.4 NEUTROP # (test code=NE#) 4.8 10\S\3/uL 2.0-8.0 LYMPH # (test code=LY#) 1.6 10\S\3/uL 1.2-4.0 MONOCYTE # (test code=MO#) 0.8 10\S\3/uL 0.0-1.1 EOSINOPH # (test code=EO#) 0.4 10\S\3/uL 0.0-0.7 BASOPHIL # (test code=BA#) 0.1 10\S\3/uL 0.0-0.3 IG # (test code=IG#) 0.03 10\S\3/uL 0.00-0.06 NRBC # (test code=NRBC#) 0.00 10\S\3/uL 0.00-0.01 NEUTROPH % (test code=NE%) 62.9 % 35.0-73.0 LYMPH % (test code=LY%) 21.1 % 20.0-55.0 MONO % (test code=MO%) 10.0 % 2.5-10.0 EOSINOPH % (test code=EO%) 4.9 % 0.0-5.0 BASOPHIL % (test code=BA%) 0.7 % 0.0-2.0 IG % (test code=IG%) 0.4 % 0.0-0.8 NRBC% (test code=NRBC%) 0.0 % 0.0-0.2 MANDIFF (test code=MDIFF) NO NO RBC MORPH (test code=RBCMOR) NORMAL CARDIAC [id number] 21:46:00* Test Item Value Reference Range Comments TROPONIN I (test code=A84) <0.015 ng/mL 0.000-0.045 CKMB (test code=A49) 4.4 ng/mL <=3.6 CPK (test code=32A) 1081 IU/L 39-308 BRAIN NATRIURETIC [id number] 21:35:00* Test Item Value Reference Range Comments proBNP (test code=PBNP) 19 pg/mL 0-125 COMPREHENSIVE METABOLIC [id number] 21:35:00* Test Item Value Reference Range Comments GLUCOSE (test code=06D) 145 mg/dL 75-100 SODIUM (test code=01A) 139 mmol/L 136-145 POTASSIUM (test code=01B) 3.7 mmol/L 3.6-5.1 CHLORIDE (test code=04A) 106 mmol/L 98-107 CO2 (test code=02A) 23 mmol/L 22-32 ANION GAP (test code=ANG) 13.7 mmol/L BUN (test code=05D) 17 mg/dL 7-18 CREATININE (test code=03E) 0.9 mg/dL 0.7-1.3 BUN/CREA (test code=BCR) 20 12-20 CALCIUM (test code=09D) 8.5 mg/dL 8.3-9.5 BILI TOTAL (test code=11A) 0.2 mg/dL 0.2-1.0 PROTEIN (test code=07D) 7.3 g/dL 6.4-8.2 ALBUMIN (test code=08D) 3.2 g/dL 3.5-4.8 GLOBULIN (test code=GLB) 4.1 g/dL 1.5-3.8 ALB/GLOB (test code=AGRR) 0.8 1.0-2.6 ALK PHOS (test code=35A) 93 IU/L 42-121 AST (test code=30A) 43 IU/L <=42 ALT (test code=31A) 27 IU/L <=78 PRO TIME AND [id number] 21:23:00* Test Item Value Reference Range Comments PT (test code=TT) 11.9 s 9.8-13.6 INR (test code=INR) 1.1 INRH (test code=INRH) SUGGESTED THERAPEUTIC RANGE FOR INR: 2.5 - 3.5 For Patients with Prosthetic Valves or Patients with recurrent Thromboembolic Events 2.0 - 3.0 For Most Other Applications PTT (test code=PTT) 19.5 s 20.2-38.0 PTTH (test code=PTTH) To monitor the effectiveness of heparin, we offer the Anti-Xa (Heparin Assay). It can be used for either unfractionated or LMW Heparin. Order Code is ANTI-XA [id number] 21:23:00* Test Item Value Reference Range Comments D-DIMER (test code=DDI) 356 ng/mL D-DU 0-234 D-DIMER COMMENT (test code=DDCOM) *Level to rule out DVT or PE: <235 ng/mL D-DU* CBC (INCLUDES AUTOMATED DIFFERENTIAL)2017-03-11 21:16:00* Test Item Value Reference Range Comments WBC (test code=WBC) 9.3 10\S\3/uL 4.5-11.0 RBC (test code=RBC) 3.91 10\S\6/uL 4.20-5.60 HGB (test code=HBG) 9.5 g/dL 14.0-18.0 HCT (test code=HCT) 30.3 % 35.0-46.0 MCV (test code=MCV) 77.5 fL 80.0-94.0 MCH (test code=MCH) 24.3 pg 27.0-31.0 MCHC (test code=MCHC) 31.4 g/dL 32.0-36.0 RDW (test code=RDW) 17.5 % 11.5-14.5 PLT (test code=PLT) 256 10\S\3/uL 130-400 MPV (test code=MPV) 9.0 fL 9.4-12.4 NEUTROP # (test code=NE#) 6.7 10\S\3/uL 2.0-8.0 LYMPH # (test code=LY#) 1.3 10\S\3/uL 1.2-4.0 MONOCYTE # (test code=MO#) 0.8 10\S\3/uL 0.0-1.1 EOSINOPH # (test code=EO#) 0.4 10\S\3/uL 0.0-0.7 BASOPHIL # (test code=BA#) 0.0 10\S\3/uL 0.0-0.3 IG # (test code=IG#) 0.03 10\S\3/uL 0.00-0.06 NRBC # (test code=NRBC#) 0.00 10\S\3/uL 0.00-0.01 NEUTROPH % (test code=NE%) 72.7 % 35.0-73.0 LYMPH % (test code=LY%) 14.1 % 20.0-55.0 MONO % (test code=MO%) 8.7 % 2.5-10.0 EOSINOPH % (test code=EO%) 3.8 % 0.0-5.0 BASOPHIL % (test code=BA%) 0.4 % 0.0-2.0 IG % (test code=IG%) 0.3 % 0.0-0.8 NRBC% (test code=NRBC%) 0.0 % 0.0-0.2 MANDIFF (test code=MDIFF) NO NO RBC MORPH (test code=RBCMOR) NORMAL XR CHEST 1 VIEW [id number] 20:49:12EXAM: Portable chest x-rayLocation: [id number]: Chest x-ray on 02/16/2017INDICATION: Chest painDISCUSSION:No consolidation or pleural effusion is seen. The cardiac silhouette is withinnormal limits given the technique. No acute bony abnormalities are identified.IMPRESSION: No evidence of acute abnormality.BLOOD [id number] 09:21:00* Test Item Value Reference Range Comments Culture Observations (test code=COB1) positive blood culture Culture Observations (test code=COB2) 2 of 2 bottles Isolate 1 (test code=ISO1) Streptococcus mitis / oralis group REFER TO # [id number] FOR SUSCEPTIBILITY BLOOD [id number] 09:17:00* Test Item Value Reference Range Comments Culture Observations (test code=COB1) POSITIVE BLOOD CULTURE Culture Observations (test code=COB2) 2 OF 2 BOTTLES Isolate 1 (test code=ISO1) Streptococcus mitis / oralis group benzylpenicillin (test code=osiel) ug/mL IF SUSCEPTIBILITY NEEDED, PLEASE NOTIFY MICRO WITHIN 24 HOURS ampicillin (test code=am) ug/mL cefotaxime 1 (test code=tax) ug/mL ceftriaxone1 (test code=ctr) ug/mL levofloxacin (test code=lev) ug/mL erythromycin (test code=e) ug/mL clindamycin (test code=cc) ug/mL linezolid (test code=lnz) ug/mL vancomycin (test code=va) ug/mL tetracycline (test code=tet) ug/mL Isolate 2 (test code=ISO2) Coagulase negative staphylococcus DRUGS OF [id number] 18:42:00* Test Item Value Reference Range Comments DRUG SCRN (test code=HDOA) URINE DRUG SCREEN This is an unconfirmed screening result and should not be used for non-medical purposes CANNABINOD (test code=88C) Negative NEGATIVE AMPHETAMINE (test code=84A) Negative NEGATIVE BENZODIAZP (test code=86A) Negative NEGATIVE BARBITURAT (test code=85A) Negative NEGATIVE OPIATES (test code=92B) Negative NEGATIVE COCAINE (test code=87A) Negative NEGATIVE PHENCYCLID (test code=66A) Negative NEGATIVE METHADONE (test code=64A) Negative NEGATIVE DOAH (test code=DOAH) URINE DRUG SCREEN Cut-off values are as follows: Cannabinoids 50 ng/mL Cocaine 300 ng/mL Amphetamines 1000 ng/mL Phencyclidine 25 ng/mL Benzodiazepines 200 ng.mL Methadone 300 ng/mL Barbiturates 200 ng/mL Opiates 2000 ng/mL [id number] 18:35:00* Test Item Value Reference Range Comments SALICYLATE (test code=94B) <1.7 mg/dL 2.8-20.0 [id number] 18:32:00* Test Item Value Reference Range Comments COLOR (test code=COLU) YELLOW YELLOW CLARITY (test code=CLA) CLEAR CLEAR GLUCOSE UR (test code=UA GLUCOSE) NEGATIVE NEGATIVE BILI UR (test code=BILE) NEGATIVE NEGATIVE KETONES UR (test code=CHELSEA) NEGATIVE NEGATIVE SP GRAVITY (test code=SPGR) 1.011 1.005-1.030 PH UR (test code=PH) 7.5 4.5-8.0 PROTEIN UR (test code=PU) NEGATIVE NEGATIVE UROBIL UR (test code=UROQ) 1.0 EU/dL 0.2-1.0 NITRITE UR (test code=NITRITE) NEGATIVE NEGATIVE BLOOD UR (test code=UA BLOOD) NEGATIVE NEGATIVE LEUK ES UR (test code=LEUK) NEGATIVE NEGATIVE [id number] 18:28:00* Test Item Value Reference Range Comments ACETAMINPH (test code=94M) <2.0 ug/mL 10.0-30.0 ALCOHOL BLOOD (ETOH)2017-02-16 18:27:00* Test Item Value Reference Range Comments ETOH (test code=HALC) ETHANOL The result is to be used only for medical purposes ALCOHOL (test code=56A) <10 mg/dL <=10 COMPREHENSIVE METABOLIC [id number] 16:11:00* Test Item Value Reference Range Comments GLUCOSE (test code=06D) 132 mg/dL 75-100 SODIUM (test code=01A) 138 mmol/L 136-145 POTASSIUM (test code=01B) 3.9 mmol/L 3.6-5.1 CHLORIDE (test code=04A) 106 mmol/L 98-107 CO2 (test code=02A) 27 mmol/L 22-32 ANION GAP (test code=ANG) 8.9 mmol/L BUN (test code=05D) 12 mg/dL 7-18 CREATININE (test code=03E) 0.8 mg/dL 0.7-1.3 BUN/CREA (test code=BCR) 16 12-20 CALCIUM (test code=09D) 8.8 mg/dL 8.3-9.5 BILI TOTAL (test code=11A) 0.2 mg/dL 0.2-1.0 PROTEIN (test code=07D) 7.6 g/dL 6.4-8.2 ALBUMIN (test code=08D) 3.1 g/dL 3.5-4.8 GLOBULIN (test code=GLB) 4.5 g/dL 1.5-3.8 ALB/GLOB (test code=AGRR) 0.7 1.0-2.6 ALK PHOS (test code=35A) 103 IU/L 42-121 AST (test code=30A) 46 IU/L <=42 ALT (test code=31A) 58 IU/L <=78 CARDIAC [id number] 15:59:00* Test Item Value Reference Range Comments TROPONIN I (test code=A84) <0.015 ng/mL 0.000-0.045 CKMB (test code=A49) 1.8 ng/mL <=3.6 CPK (test code=32A) 251 IU/L 39-308 PRO TIME AND [id number] 15:41:00* Test Item Value Reference Range Comments PT (test code=TT) 12.9 s 9.8-13.6 INR (test code=INR) 1.2 INRH (test code=INRH) SUGGESTED THERAPEUTIC RANGE FOR INR: 2.5 - 3.5 For Patients with Prosthetic Valves or Patients with recurrent Thromboembolic Events 2.0 - 3.0 For Most Other Applications PTT (test code=PTT) 32.5 s 20.2-38.0 PTTH (test code=PTTH) To monitor the effectiveness of heparin, we offer the Anti-Xa (Heparin Assay). It can be used for either unfractionated or LMW Heparin. Order Code is ANTI-XA XR CHEST 2 [id number] 15:38:11CHEST, PA AND LATERAL.Location: [id number]: chest pain.Comparison: 01/30/17COMMENTS: There is soft tissue fullness in the right infrahilar region withpatchy right lower lobe opacities most likely secondary to pneumonia. The leftlung is clear. The heart and mediastinal contour are stable.Impression:1. Patchy right lower lobe opacities and soft tissue fullness in the rightinfrahilar region most likely secondary to pneumonia. Follow-up afterappropriate treatment is recommended.CBC (INCLUDES AUTOMATED DIFFERENTIAL)2017-02-16 15:34:00* Test Item Value Reference Range Comments WBC (test code=WBC) 6.1 10\S\3/uL 4.5-11.0 RBC (test code=RBC) 3.89 10\S\6/uL 4.20-5.60 HGB (test code=HBG) 9.4 g/dL 14.0-18.0 HCT (test code=HCT) 30.2 % 35.0-46.0 MCV (test code=MCV) 77.6 fL 80.0-94.0 MCH (test code=MCH) 24.2 pg 27.0-31.0 MCHC (test code=MCHC) 31.1 g/dL 32.0-36.0 RDW (test code=RDW) 18.9 % 11.5-14.5 PLT (test code=PLT) 265 10\S\3/uL 130-400 MPV (test code=MPV) 8.8 fL 9.4-12.4 NEUTROP # (test code=NE#) 4.3 10\S\3/uL 2.0-8.0 LYMPH # (test code=LY#) 0.9 10\S\3/uL 1.2-4.0 MONOCYTE # (test code=MO#) 0.6 10\S\3/uL 0.0-1.1 EOSINOPH # (test code=EO#) 0.3 10\S\3/uL 0.0-0.7 BASOPHIL # (test code=BA#) 0.1 10\S\3/uL 0.0-0.3 IG # (test code=IG#) 0.02 10\S\3/uL 0.00-0.06 NRBC # (test code=NRBC#) 0.00 10\S\3/uL 0.00-0.01 NEUTROPH % (test code=NE%) 69.7 % 35.0-73.0 LYMPH % (test code=LY%) 15.0 % 20.0-55.0 MONO % (test code=MO%) 9.3 % 2.5-10.0 EOSINOPH % (test code=EO%) 4.9 % 0.0-5.0 BASOPHIL % (test code=BA%) 0.8 % 0.0-2.0 IG % (test code=IG%) 0.3 % 0.0-0.8 NRBC% (test code=NRBC%) 0.0 % 0.0-0.2 MANDIFF (test code=MDIFF) NO NO RBC MORPH (test code=RBCMOR) NORMAL RAD, CHEST, 1 VIEW, NON [id number] 06:09:00Reason for exam:->blood clots Should this be performed at the bedside?->YesFINAL REPORT RAD, CHEST, 1 VIEW, NON DEPT INDICATION: blood clots/Pt has h/o CDD,DVT,Coronary stent placements, [place] COMPARISON: Chest x-ray 2 months ago TECHNIQUE: Single frontal view of the chest. IMPRESSION:Cardiomediastinal silhouette within normal limits.No overt consolidative or congestive change.No acute osseous abnormality. Signed: Roger Robles MDReport Verified Date/Time: 02/16/2017 06:09:06 Reading Location: [address] Ortho Consult Reading Room U/S VENOUS DOPPLER BG LOW EXT*WW*2017-02-15 22:10:12BILATERAL LOWER EXTREMITY VENOUS DUPLEXLOCATION: [id number]: Bilateral lower extremity pain.TECHNIQUE: Grayscale and color sonographic imaging of bilateral lower extremitydeep veins with dynamic compression and Doppler evaluation.COMPARISON: None.FINDINGS:The right common femoral, superficial femoral, popliteal, peroneal, anteriortibial, and posterior tibial veins are fully compressible with normal colorflow and normal Doppler waveforms.The left common femoral, superficial femoral, popliteal, peroneal, anteriortibial, and posterior tibial veins are fully compressible with normal colorflow and normal Doppler waveforms.Bilateral in guinal lymph nodes are mildly enlarged and hyperechoic.IMPRESSION:1. No evidence of DVT.2. Nonspecific mild bilateral inguinal adenopathy.PRO TIME AND PTT *WW* 2017-02-15 20:50:00* Test Item Value Reference Range Comments PT (test code=TT) 12.6 s 9.8-13.6 INR (test code=INR) 1.1 INRH (test code=INRH) SUGGESTED THERAPEUTIC RANGE FOR INR: 2.5 - 3.5 For Patients with Prosthetic Valves or Patients with recurrent Thromboembolic Events 2.0 - 3.0 For Most Other Applications PTT (test code=PTT) 31.4 s 20.2-38.0 PTTH (test code=PTTH) To monitor the effectiveness of heparin, we offer the Anti-Xa (Heparin Assay). It can be used for either unfractionated or LMW Heparin. Order Code is ANTI-XA COMPREHENSIVE METABOLIC TERRELL *WW*2017-02-15 20:39:00* Test Item Value Reference Range Comments GLUCOSE (test code=06D) 112 mg/dL 75-100 SODIUM (test code=01A) 137 mmol/L 136-145 POTASSIUM (test code=01B) 3.7 mmol/L 3.6-5.1 CHLORIDE (test code=04A) 104 mmol/L 98-107 CO2 (test code=02A) 25 mmol/L 22-32 ANION GAP (test code=ANG) 11.7 mmol/L BUN (test code=05D) 14 mg/dL 7-18 CREATININE (test code=03E) 0.6 mg/dL 0.7-1.3 BUN/CREA (test code=BCR) 22 12-20 CALCIUM (test code=09D) 8.5 mg/dL 8.3-9.5 BILI TOTAL (test code=11A) 0.2 mg/dL 0.2-1.0 PROTEIN (test code=07D) 7.0 g/dL 6.4-8.2 ALBUMIN (test code=08D) 2.9 g/dL 3.5-4.8 GLOBULIN (test code=GLB) 4.1 g/dL 1.5-3.8 ALB/GLOB (test code=AGRR) 0.7 1.0-2.6 ALK PHOS (test code=35A) 84 IU/L 42-121 AST (test code=30A) 17 IU/L <=42 ALT (test code=31A) 23 IU/L <=78 D-DIMER *WW*2017-02-15 20:36:00* Test Item Value Reference Range Comments D-DIMER (test code=DDI) <200 ng/mL D-DU 0-234 D-DIMER COMMENT (test code=DDCOM) *Level to rule out DVT or PE: <235 ng/mL D-DU* CBC (INCLUDES AUTOMATED DIFFERENTIAL)*[id number] 20:21:00* Test Item Value Reference Range Comments WBC (test code=WBC) 6.7 10\S\3/uL 4.5-11.0 RBC (test code=RBC) 3.73 10\S\6/uL 4.20-5.60 HGB (test code=HBG) 9.3 g/dL 14.0-18.0 HCT (test code=HCT) 29.6 % 35.0-46.0 MCV (test code=MCV) 79.4 fL 80.0-94.0 MCH (test code=MCH) 24.9 pg 27.0-31.0 MCHC (test code=MCHC) 31.4 g/dL 32.0-36.0 RDW (test code=RDW) 18.7 % 11.5-14.5 PLT (test code=PLT) 269 10\S\3/uL 130-400 MPV (test code=MPV) 8.7 fL 9.4-12.4 NEUTROP # (test code=NE#) 4.4 10\S\3/uL 2.0-8.0 LYMPH # (test code=LY#) 1.2 10\S\3/uL 1.2-4.0 MONOCYTE # (test code=MO#) 0.7 10\S\3/uL 0.0-1.1 EOSINOPH # (test code=EO#) 0.3 10\S\3/uL 0.0-0.7 BASOPHIL # (test code=BA#) 0.1 10\S\3/uL 0.0-0.3 IG # (test code=IG#) 0.05 10\S\3/uL 0.00-0.06 NRBC # (test code=NRBC#) 0.00 10\S\3/uL 0.00-0.01 NEUTROPH % (test code=NE%) 65.4 % 35.0-73.0 LYMPH % (test code=LY%) 17.6 % 20.0-55.0 MONO % (test code=MO%) 10.3 % 2.5-10.0 EOSINOPH % (test code=EO%) 5.1 % 0.0-5.0 BASOPHIL % (test code=BA%) 0.9 % 0.0-2.0 IG % (test code=IG%) 0.7 % 0.0-0.8 NRBC% (test code=NRBC%) 0.0 % 0.0-0.2 MANDIFF (test code=WMDIFF) NO NO RBC MORPH (test code=WRBCMOR) NORMAL NM LUNG (V/Q ) SCAN W [id number] 14:27:59Radionuclide ventilation/perfusion lung scanLocation Code: [id number]: Shortness of breath, history of PECOMPARISON: None.COMMENT: Routine images of the lungs were obtained after inhalation of 8.5 mCiof Xe133 gas and intravenous injection of 6.5 mCi 99 M technetium MAA.Ventilation is symmetric bilaterally with no focal defect. There is nosignificant trapping.Perfusion images demonstrate normal and symmetric perfusion with no segmentaldefect to suggest a PE. Correlation is made to chest x-ray dated 01/30/2017.IMPRESSION: Normal VQ scan with a low probabili ty of PE.PRO TIME AND [id number] 06:38:00* Test Item Value Reference Range Comments PT (test code=TT) 12.3 s 9.8-13.6 INR (test code=INR) 1.1 INRH (test code=INRH) SUGGESTED THERAPEUTIC RANGE FOR INR: 2.5 - 3.5 For Patients with Prosthetic Valves or Patients with recurrent Thromboembolic Events 2.0 - 3.0 For Most Other Applications PTT (test code=PTT) 34.1 s 20.2-38.0 PTTH (test code=PTTH) To monitor the effectiveness of heparin, we offer the Anti-Xa (Heparin Assay). It can be used for either unfractionated or LMW Heparin. Order Code is ANTI-XA BASIC METABOLIC [id number] 01:39:00* Test Item Value Reference Range Comments GLUCOSE (test code=06D) 130 mg/dL 75-100 SODIUM (test code=01A) 139 mmol/L 136-145 POTASSIUM (test code=01B) 3.7 mmol/L 3.6-5.1 CHLORIDE (test code=04A) 107 mmol/L 98-107 CO2 (test code=02A) 26 mmol/L 22-32 ANION GAP (test code=ANG) 9.7 mmol/L BUN (test code=05D) 11 mg/dL 7-18 CREATININE (test code=03E) 0.8 mg/dL 0.7-1.3 BUN/CREA (test code=BCR) 13 12-20 CALCIUM (test code=09D) 8.4 mg/dL 8.3-9.5 PRO TIME AND [id number] 01:34:00* Test Item Value Reference Range Comments PT (test code=TT) 13.4 s 9.8-13.6 INR (test code=INR) 1.2 INRH (test code=INRH) SUGGESTED THERAPEUTIC RANGE FOR INR: 2.5 - 3.5 For Patients with Prosthetic Valves or Patients with recurrent Thromboembolic Events 2.0 - 3.0 For Most Other Applications PTT (test code=PTT) 30.5 s 20.2-38.0 PTTH (test code=PTTH) To monitor the effectiveness of heparin, we offer the Anti-Xa (Heparin Assay). It can be used for either unfractionated or LMW Heparin. Order Code is ANTI-XA CBC (INCLUDES AUTOMATED DIFFERENTIAL)2017-02-14 01:31:00* Test Item Value Reference Range Comments WBC (test code=WBC) 6.7 10\S\3/uL 4.5-11.0 RBC (test code=RBC) 3.87 10\S\6/uL 4.20-5.60 HGB (test code=HBG) 9.6 g/dL 14.0-18.0 HCT (test code=HCT) 30.7 % 35.0-46.0 MCV (test code=MCV) 79.3 fL 80.0-94.0 MCH (test code=MCH) 24.8 pg 27.0-31.0 MCHC (test code=MCHC) 31.3 g/dL 32.0-36.0 RDW (test code=RDW) 19.4 % 11.5-14.5 PLT (test code=PLT) 283 10\S\3/uL 130-400 MPV (test code=MPV) 9.0 fL 9.4-12.4 NEUTROP # (test code=NE#) 4.2 10\S\3/uL 2.0-8.0 LYMPH # (test code=LY#) 1.3 10\S\3/uL 1.2-4.0 MONOCYTE # (test code=MO#) 0.8 10\S\3/uL 0.0-1.1 EOSINOPH # (test code=EO#) 0.4 10\S\3/uL 0.0-0.7 BASOPHIL # (test code=BA#) 0.1 10\S\3/uL 0.0-0.3 IG # (test code=IG#) 0.02 10\S\3/uL 0.00-0.06 NRBC # (test code=NRBC#) 0.00 10\S\3/uL 0.00-0.01 NEUTROPH % (test code=NE%) 62.6 % 35.0-73.0 LYMPH % (test code=LY%) 19.5 % 20.0-55.0 MONO % (test code=MO%) 11.4 % 2.5-10.0 EOSINOPH % (test code=EO%) 5.4 % 0.0-5.0 BASOPHIL % (test code=BA%) 0.8 % 0.0-2.0 IG % (test code=IG%) 0.3 % 0.0-0.8 NRBC% (test code=NRBC%) 0.0 % 0.0-0.2 MANDIFF (test code=MDIFF) NO NO RBC MORPH (test code=RBCMOR) NORMAL XR CHEST 1 [id number] 19:38:57Portable chestCLINICAL INDICATION: Chest painCOMPARISON: 12/15/2016Location R 16Mild interstitial prominence is unchanged since previous examination.Lungs are otherwise clear. Heart is normal in size. Bony structures areunremarkable.IMPRESSION: No acute cardiopulmonary abnormality or significant change.COMPREHENSIVE METABOLIC [id number] 11:32:00* Test Item Value Reference Range Comments GLUCOSE (test code=06D) 176 mg/dL 75-100 SODIUM (test code=01A) 140 mmol/L 136-145 POTASSIUM (test code=01B) 3.9 mmol/L 3.6-5.1 CHLORIDE (test code=04A) 105 mmol/L 98-107 CO2 (test code=02A) 26 mmol/L 22-32 ANION GAP (test code=ANG) 12.9 mmol/L BUN (test code=05D) 15 mg/dL 7-18 CREATININE (test code=03E) 0.9 mg/dL 0.7-1.3 BUN/CREA (test code=BCR) 16 12-20 CALCIUM (test code=09D) 8.1 mg/dL 8.3-9.5 BILI TOTAL (test code=11A) 0.2 mg/dL 0.2-1.0 PROTEIN (test code=07D) 7.6 g/dL 6.4-8.2 ALBUMIN (test code=08D) 2.9 g/dL 3.5-4.8 GLOBULIN (test code=GLB) 4.7 g/dL 1.5-3.8 ALB/GLOB (test code=AGRR) 0.6 1.0-2.6 ALK PHOS (test code=35A) 95 IU/L 42-121 AST (test code=30A) 24 IU/L <=42 ALT (test code=31A) 27 IU/L <=78 ALCOHOL BLOOD (ETOH)2017-02-02 11:32:00* Test Item Value Reference Range Comments ETOH (test code=HALC) ETHANOL The result is to be used only for medical purposes ALCOHOL (test code=56A) <10 mg/dL <=10 [id number] 11:31:00* Test Item Value Reference Range Comments ACETAMINPH (test code=94M) <2.0 ug/mL 10.0-30.0 [id number] 11:28:00* Test Item Value Reference Range Comments SALICYLATE (test code=94B) <1.7 mg/dL 2.8-20.0 [id number] 11:28:00* Test Item Value Reference Range Comments COLOR (test code=COLU) YELLOW YELLOW CLARITY (test code=CLA) CLEAR CLEAR GLUCOSE UR (test code=UA GLUCOSE) NEGATIVE NEGATIVE BILI UR (test code=BILE) NEGATIVE NEGATIVE KETONES UR (test code=CHELSEA) NEGATIVE NEGATIVE SP GRAVITY (test code=SPGR) 1.018 1.005-1.030 PH UR (test code=PH) 6.0 4.5-8.0 PROTEIN UR (test code=PU) NEGATIVE NEGATIVE UROBIL UR (test code=UROQ) 1.0 EU/dL 0.2-1.0 NITRITE UR (test code=NITRITE) NEGATIVE NEGATIVE BLOOD UR (test code=UA BLOOD) NEGATIVE NEGATIVE LEUK ES UR (test code=LEUK) NEGATIVE NEGATIVE AMMONIA [id number] 11:27:00* Test Item Value Reference Range Comments AMMONIA (test code=54A) 12 umol/L 11-32 DRUGS OF [id number] 11:22:00* Test Item Value Reference Range Comments DRUG SCRN (test code=HDOA) URINE DRUG SCREEN This is an unconfirmed screening result and should not be used for non-medical purposes CANNABINOD (test code=88C) Negative NEGATIVE AMPHETAMINE (test code=84A) Negative NEGATIVE BENZODIAZP (test code=86A) Negative NEGATIVE BARBITURAT (test code=85A) Negative NEGATIVE OPIATES (test code=92B) Negative NEGATIVE COCAINE (test code=87A) Negative NEGATIVE PHENCYCLID (test code=66A) Negative NEGATIVE METHADONE (test code=64A) Negative NEGATIVE DOAH (test code=DOAH) URINE DRUG SCREEN Cut-off values are as follows: Cannabinoids 50 ng/mL Cocaine 300 ng/mL Amphetamines 1000 ng/mL Phencyclidine 25 ng/mL Benzodiazepines 200 ng.mL Methadone 300 ng/mL Barbiturates 200 ng/mL Opiates 2000 ng/mL CBC (INCLUDES AUTOMATED DIFFERENTIAL)2017-02-02 11:12:00* Test Item Value Reference Range Comments WBC (test code=WBC) 9.8 10\S\3/uL 4.5-11.0 RBC (test code=RBC) 4.06 10\S\6/uL 4.20-5.60 HGB (test code=HBG) 9.7 g/dL 14.0-18.0 HCT (test code=HCT) 31.6 % 35.0-46.0 MCV (test code=MCV) 77.8 fL 80.0-94.0 MCH (test code=MCH) 23.9 pg 27.0-31.0 MCHC (test code=MCHC) 30.7 g/dL 32.0-36.0 RDW (test code=RDW) 18.9 % 11.5-14.5 PLT (test code=PLT) 272 10\S\3/uL 130-400 MPV (test code=MPV) 9.2 fL 9.4-12.4 NEUTROP # (test code=NE#) 8.0 10\S\3/uL 2.0-8.0 LYMPH # (test code=LY#) 0.8 10\S\3/uL 1.2-4.0 MONOCYTE # (test code=MO#) 0.6 10\S\3/uL 0.0-1.1 EOSINOPH # (test code=EO#) 0.3 10\S\3/uL 0.0-0.7 BASOPHIL # (test code=BA#) 0.1 10\S\3/uL 0.0-0.3 IG # (test code=IG#) 0.06 10\S\3/uL 0.00-0.06 NRBC # (test code=NRBC#) 0.00 10\S\3/uL 0.00-0.01 NEUTROPH % (test code=NE%) 81.3 % 35.0-73.0 LYMPH % (test code=LY%) 8.5 % 20.0-55.0 MONO % (test code=MO%) 5.7 % 2.5-10.0 EOSINOPH % (test code=EO%) 3.3 % 0.0-5.0 BASOPHIL % (test code=BA%) 0.6 % 0.0-2.0 IG % (test code=IG%) 0.6 % 0.0-0.8 NRBC% (test code=NRBC%) 0.0 % 0.0-0.2 MANDIFF (test code=MDIFF) NO NO RBC MORPH (test code=RBCMOR) NORMAL CREATINE KINASE (CK), TOTAL AND [id number] 17:18:00* Test Item Value Reference Range Comments CREATINE KINASE TOTAL (BEAKER) (test myih=509) 711 U/L 29-200 CREATINE KINASE-MB (BEAKER) (test lnll=230) 3.5 ng/mL 0.0-6.6 CREATINE KINASE-MB INDEX (BEAKER) (test inqy=684) 0.5 % CK-MB Reference Range:<6.7 Normal6.7-10.0 Borderline>10.0 Abnormal TROPONIN [id number] 15:04:00* Test Item Value Reference Range Comments TROPONIN I (BEAKER) (test oyeo=755) < ng/mL 0.00-0.03 Troponin I (TnI) levels must be interpreted in the context of the presenting sym ptoms and the clinical findings. Elevated TnI levels indicate myocardial damage, but are not specific for ischemic heart disease. Elevated TnI levels are seen i n patients with other cardiac conditions (including myocarditis and congestive h eart failure), and slight TnI elevations occur in patients with other conditions , including sepsis, renal failure, acidosis, acute neurological disease, and per sistent tachyarrhythmia.BASIC METABOLIC [id number] 14:56:00* Test Item Value Reference Range Comments SODIUM (BEAKER) (test lyia=370) 138 meq/L 136-145 POTASSIUM (BEAKER) (test jjfq=211) 4.1 meq/L 3.5-5.1 CHLORIDE (BEAKER) (test zydc=865) 106 meq/L 98-107 CO2 (BEAKER) (test kpgy=331) 25 meq/L 22-29 BLOOD UREA NITROGEN (BEAKER) (test wszt=886) 19 mg/dL 7-21 CREATININE (BEAKER) (test wton=267) 0.77 mg/dL 0.57-1.25 GLUCOSE RANDOM (BEAKER) (test amcv=180) 139 mg/dL 70-105 CALCIUM (BEAKER) (test elsm=762) 8.7 mg/dL 8.4-10.2 EGFR (BEAKER) (test zhpu=5852) 104 mL/min/1.73 sq m ESTIMATED GFR IS NOT ACCURATE CREATININE CLEARANCE IN PREDICTING GLOMERULAR FILTRATION RATE. ESTIMATED GFR IS NOT APPLICABLE FOR DIALYSIS PATIENTS. CBC W/PLT COUNT & AUTO [id number] 14:43:00* Test Item Value Reference Range Comments WHITE BLOOD CELL COUNT (BEAKER) (test nras=679) 8.3 K/ L 3.5-10.5 RED BLOOD CELL COUNT (BEAKER) (test jzmw=290) 4.32 M/ L 4.63-6.08 HEMOGLOBIN (BEAKER) (test hahx=265) 10.3 GM/DL 13.7-17.5 HEMATOCRIT (BEAKER) (test qafx=486) 34.3 % 40.1-51.0 MEAN CORPUSCULAR VOLUME (BEAKER) (test rmuh=618) 79.4 fL 79.0-92.2 MEAN CORPUSCULAR HEMOGLOBIN (BEAKER) (test angk=714) 23.8 pg 25.7-32.2 MEAN CORPUSCULAR HEMOGLOBIN CONC (BEAKER) (test sczo=210) 30.0 GM/DL 32.3-36.5 RED CELL DISTRIBUTION WIDTH (BEAKER) (test fkie=066) 19.1 % 11.6-14.4 PLATELET COUNT (BEAKER) (test lkei=499) 276 K/CU MM 150-450 MEAN PLATELET VOLUME (BEAKER) (test ptan=551) 9.0 fL 9.4-12.4 NUCLEATED RED BLOOD CELLS (BEAKER) (test ukwg=402) 0 /100 WBC 0-0 NEUTROPHILS RELATIVE PERCENT (BEAKER) (test vvmp=472) 63 % LYMPHOCYTES RELATIVE PERCENT (BEAKER) (test iafv=349) 18 % MONOCYTES RELATIVE PERCENT (BEAKER) (test lqvn=395) 8 % EOSINOPHILS RELATIVE PERCENT (BEAKER) (test xgdh=545) 10 % BASOPHILS RELATIVE PERCENT (BEAKER) (test vcij=685) 1 % NEUTROPHILS ABSOLUTE COUNT (BEAKER) (test zxyn=920) 5.22 K/ L 1.78-5.38 LYMPHOCYTES ABSOLUTE COUNT (BEAKER) (test ecjl=533) 1.50 K/ L 1.32-3.57 MONOCYTES ABSOLUTE COUNT (BEAKER) (test jhaq=760) 0.67 K/ L 0.30-0.82 EOSINOPHILS ABSOLUTE COUNT (BEAKER) (test smya=791) 0.79 K/ L 0.04-0.54 BASOPHILS ABSOLUTE COUNT (BEAKER) (test zwwb=097) 0.06 K/ L 0.01-0.08 IMMATURE GRANULOCYTES-RELATIVE PERCENT (BEAKER) (test nzra=5770) 0 % 0-1 TROPONIN [id number] 09:05:00* Test Item Value Reference Range Comments TROPONIN I (BEAKER) (test vpkg=379) < ng/mL 0.00-0.03 Troponin I (TnI) levels must be interpreted in the context of the presenting sym ptoms and the clinical findings. Elevated TnI levels indicate myocardial damage, but are not specific for ischemic heart disease. Elevated TnI levels are seen i n patients with other cardiac conditions (including myocarditis and congestive h eart failure), and slight TnI elevations occur in patients with other conditions , including sepsis, renal failure, acidosis, acute neurological disease, and per sistent tachyarrhythmia.[id number] 14:27:00* Test Item Value Reference Range Comments ACETAMINPH (test code=94M) <10.0 ug/mL 10.0-30.0 LIVER [id number] 14:05:00* Test Item Value Reference Range Comments BILI TOTAL (test code=11A) 0.5 mg/dL 0.2-1.0 BILI DIRCT (test code=12A) <0.1 mg/dL 0.0-0.2 PROTEIN (test code=07D) 7.4 g/dL 6.4-8.2 ALBUMIN (test code=08D) 2.8 g/dL 3.5-4.8 GLOBULIN (test code=GLB) 4.6 g/dL 1.5-3.8 ALB/GLOB (test code=AGRR) 0.6 1.0-2.6 ALK PHOS (test code=35A) 98 IU/L 42-121 AST (test code=30A) 30 IU/L <=42 ALT (test code=31A) 37 IU/L <=78 COMPREHENSIVE METABOLIC [id number] 14:01:00* Test Item Value Reference Range Comments GLUCOSE (test code=06D) 198 mg/dL 75-100 SODIUM (test code=01A) 138 mmol/L 136-145 POTASSIUM (test code=01B) 3.9 mmol/L 3.6-5.1 CHLORIDE (test code=04A) 104 mmol/L 98-107 CO2 (test code=02A) 26 mmol/L 22-32 ANION GAP (test code=ANG) 11.9 mmol/L BUN (test code=05D) 10 mg/dL 7-18 CREATININE (test code=03E) 0.8 mg/dL 0.7-1.3 BUN/CREA (test code=BCR) 12 12-20 CALCIUM (test code=09D) 8.5 mg/dL 8.3-9.5 BILI TOTAL (test code=11A) 0.5 mg/dL 0.2-1.0 PROTEIN (test code=07D) 7.4 g/dL 6.4-8.2 ALBUMIN (test code=08D) 2.8 g/dL 3.5-4.8 GLOBULIN (test code=GLB) 4.6 g/dL 1.5-3.8 ALB/GLOB (test code=AGRR) 0.6 1.0-2.6 ALK PHOS (test code=35A) 97 IU/L 42-121 AST (test code=30A) 30 IU/L <=42 ALT (test code=31A) 37 IU/L <=78 [id number] 13:57:00* Test Item Value Reference Range Comments SALICYLATE (test code=94B) <1.7 mg/dL 2.8-20.0 ALCOHOL BLOOD (ETOH)2017-01-30 13:56:00* Test Item Value Reference Range Comments ETOH (test code=HALC) ETHANOL The result is to be used only for medical purposes ALCOHOL (test code=56A) <10 mg/dL <=10 PRO TIME AND [id number] 13:55:00* Test Item Value Reference Range Comments PT (test code=TT) 12.3 s 9.8-13.6 INR (test code=INR) 1.1 INRH (test code=INRH) SUGGESTED THERAPEUTIC RANGE FOR INR: 2.5 - 3.5 For Patients with Prosthetic Valves or Patients with recurrent Thromboembolic Events 2.0 - 3.0 For Most Other Applications PTT (test code=PTT) 28.8 s 20.2-38.0 PTTH (test code=PTTH) To monitor the effectiveness of heparin, we offer the Anti-Xa (Heparin Assay). It can be used for either unfractionated or LMW Heparin. Order Code is ANTI-XA CARDIAC [id number] 13:52:00* Test Item Value Reference Range Comments TROPONIN I (test code=A84) <0.015 ng/mL 0.000-0.045 CKMB (test code=A49) 2.1 ng/mL <=3.6 CPK (test code=32A) 403 IU/L 39-308 DRUGS OF [id number] 13:47:00* Test Item Value Reference Range Comments DRUG SCRN (test code=HDOA) URINE DRUG SCREEN This is an unconfirmed screening result and should not be used for non-medical purposes CANNABINOD (test code=88C) Negative NEGATIVE AMPHETAMINE (test code=84A) Negative NEGATIVE BENZODIAZP (test code=86A) Negative NEGATIVE BARBITURAT (test code=85A) Negative NEGATIVE OPIATES (test code=92B) Negative NEGATIVE COCAINE (test code=87A) Negative NEGATIVE PHENCYCLID (test code=66A) Negative NEGATIVE METHADONE (test code=64A) Negative NEGATIVE DOAH (test code=DOAH) URINE DRUG SCREEN Cut-off values are as follows: Cannabinoids 50 ng/mL Cocaine 300 ng/mL Amphetamines 1000 ng/mL Phencyclidine 25 ng/mL Benzodiazepines 200 ng.mL Methadone 300 ng/mL Barbiturates 200 ng/mL Opiates 2000 ng/mL AMMONIA [id number] 13:47:00* Test Item Value Reference Range Comments AMMONIA (test code=54A) 32 umol/L [id number] 13:43:00* Test Item Value Reference Range Comments COLOR (test code=COLU) YELLOW YELLOW CLARITY (test code=CLA) CLEAR CLEAR GLUCOSE UR (test code=UA GLUCOSE) NEGATIVE NEGATIVE BILI UR (test code=BILE) NEGATIVE NEGATIVE KETONES UR (test code=CHELSEA) NEGATIVE NEGATIVE SP GRAVITY (test code=SPGR) 1.019 1.005-1.030 PH UR (test code=PH) 7.0 4.5-8.0 PROTEIN UR (test code=PU) NEGATIVE NEGATIVE UROBIL UR (test code=UROQ) 1.0 EU/dL 0.2-1.0 NITRITE UR (test code=NITRITE) NEGATIVE NEGATIVE BLOOD UR (test code=UA BLOOD) NEGATIVE NEGATIVE LEUK ES UR (test code=LEUK) NEGATIVE NEGATIVE CBC (INCLUDES AUTOMATED DIFFERENTIAL)2017-01-30 13:37:00* Test Item Value Reference Range Comments WBC (test code=WBC) 6.8 10\S\3/uL 4.5-11.0 RBC (test code=RBC) 3.97 10\S\6/uL 4.20-5.60 HGB (test code=HBG) 9.6 g/dL 14.0-18.0 HCT (test code=HCT) 30.6 % 35.0-46.0 MCV (test code=MCV) 77.1 fL 80.0-94.0 MCH (test code=MCH) 24.2 pg 27.0-31.0 MCHC (test code=MCHC) 31.4 g/dL 32.0-36.0 RDW (test code=RDW) 18.5 % 11.5-14.5 PLT (test code=PLT) 253 10\S\3/uL 130-400 MPV (test code=MPV) 8.9 fL 9.4-12.4 NEUTROP # (test code=NE#) 4.5 10\S\3/uL 2.0-8.0 LYMPH # (test code=LY#) 1.0 10\S\3/uL 1.2-4.0 MONOCYTE # (test code=MO#) 0.6 10\S\3/uL 0.0-1.1 EOSINOPH # (test code=EO#) 0.6 10\S\3/uL 0.0-0.7 BASOPHIL # (test code=BA#) 0.1 10\S\3/uL 0.0-0.3 IG # (test code=IG#) 0.02 10\S\3/uL 0.00-0.06 NRBC # (test code=NRBC#) 0.00 10\S\3/uL 0.00-0.01 NEUTROPH % (test code=NE%) 65.8 % 35.0-73.0 LYMPH % (test code=LY%) 15.1 % 20.0-55.0 MONO % (test code=MO%) 9.2 % 2.5-10.0 EOSINOPH % (test code=EO%) 8.9 % 0.0-5.0 BASOPHIL % (test code=BA%) 0.7 % 0.0-2.0 IG % (test code=IG%) 0.3 % 0.0-0.8 NRBC% (test code=NRBC%) 0.0 % 0.0-0.2 MANDIFF (test code=MDIFF) NO NO RBC MORPH (test code=RBCMOR) NORMAL XR CHEST 1 VIEW [id number] 13:29:00HISTORY: chest painLocation code: [id number]: Frontal view of the chest demonstrates normal cardiomediastinalsilhouette. The trachea is midline. The lungs are clear. There is no effusionor pneumothorax. The bones are intact.IMPRESSION: No acute pulmonary process.XR CHEST 1 VIEW PORTABLE 2017-01-28 23:12:19LOCATION: [id number]: 56-year-old male with chest pain.COMMENT: After-hours service at 11:11 p.m.A frontal chest radiograph was obtained at the bedside at 10:55 p.m., ascompared to an older study of 01/22/17.The lungs are clear and well-aerated. The cardiac silhouette, thong, andmediastinum are within normal limits. The skeleton is intact, and thesurrounding soft tissues are unremarkable. Again no grecia are mild, chronicappearing interstitial markings in the lung bases.Cardiac m onitor leads are present.IMPRESSION:Unremarkable portable examination of the prabhjot st.PRO TIME AND PTT *WW*2017-01-28 23:07:00* Test Item Value Reference Range Comments PT (test code=TT) 13.0 s 9.8-13.6 INR (test code=INR) 1.1 INRH (test code=INRH) SUGGESTED THERAPEUTIC RANGE FOR INR: 2.5 - 3.5 For Patients with Prosthetic Valves or Patients with recurrent Thromboembolic Events 2.0 - 3.0 For Most Other Applications PTT (test code=PTT) 27.9 s 20.2-38.0 PTTH (test code=PTTH) To monitor the effectiveness of heparin, we offer the Anti-Xa (Heparin Assay). It can be used for either unfractionated or LMW Heparin. Order Code is ANTI-XA AMYLASE AND LIPASE *WW*2017-01-28 23:06:00* Test Item Value Reference Range Comments AMYLASE (test code=10A) 53 U/L 28-100 LIPASE (test code=60A) 128 IU/L 73-393 COMPREHENSIVE METABOLIC TERRELL *WW*2017-01-28 23:06:00* Test Item Value Reference Range Comments GLUCOSE (test code=06D) 180 mg/dL 75-100 SODIUM (test code=01A) 139 mmol/L 136-145 POTASSIUM (test code=01B) 3.5 mmol/L 3.6-5.1 CHLORIDE (test code=04A) 105 mmol/L 98-107 CO2 (test code=02A) 23 mmol/L 22-32 ANION GAP (test code=ANG) 14.5 mmol/L BUN (test code=05D) 12 mg/dL 7-18 CREATININE (test code=03E) 1.0 mg/dL 0.7-1.3 BUN/CREA (test code=BCR) 12 12-20 CALCIUM (test code=09D) 8.2 mg/dL 8.3-9.5 BILI TOTAL (test code=11A) 0.2 mg/dL 0.2-1.0 PROTEIN (test code=07D) 7.4 g/dL 6.4-8.2 ALBUMIN (test code=08D) 2.8 g/dL 3.5-4.8 GLOBULIN (test code=GLB) 4.6 g/dL 1.5-3.8 ALB/GLOB (test code=AGRR) 0.6 1.0-2.6 ALK PHOS (test code=35A) 83 IU/L 42-121 AST (test code=30A) 17 IU/L <=42 ALT (test code=31A) 23 IU/L <=78 CARDIAC PROFILE 2017-01-28 23:05:00* Test Item Value Reference Range Comments TROPONIN I (test code=A84) <0.015 ng/mL 0.000-0.045 CKMB (test code=A49) 2.4 ng/mL <=3.6 CPK (test code=32A) 358 IU/L 39-308 CBC (INCLUDES AUTOMATED DIFFERENTIAL)*[id number] 22:48:00* Test Item Value Reference Range Comments WBC (test code=WBC) 11.3 10\S\3/uL 4.5-11.0 RBC (test code=RBC) 4.00 10\S\6/uL 4.20-5.60 HGB (test code=HBG) 9.7 g/dL 14.0-18.0 HCT (test code=HCT) 31.2 % 35.0-46.0 MCV (test code=MCV) 78.0 fL 80.0-94.0 MCH (test code=MCH) 24.3 pg 27.0-31.0 MCHC (test code=MCHC) 31.1 g/dL 32.0-36.0 RDW (test code=RDW) 18.3 % 11.5-14.5 PLT (test code=PLT) 277 10\S\3/uL 130-400 MPV (test code=MPV) 8.8 fL 9.4-12.4 NEUTROP # (test code=NE#) 8.0 10\S\3/uL 2.0-8.0 LYMPH # (test code=LY#) 1.5 10\S\3/uL 1.2-4.0 MONOCYTE # (test code=MO#) 1.1 10\S\3/uL 0.0-1.1 EOSINOPH # (test code=EO#) 0.6 10\S\3/uL 0.0-0.7 BASOPHIL # (test code=BA#) 0.1 10\S\3/uL 0.0-0.3 IG # (test code=IG#) 0.06 10\S\3/uL 0.00-0.06 NRBC # (test code=NRBC#) 0.00 10\S\3/uL 0.00-0.01 NEUTROPH % (test code=NE%) 70.7 % 35.0-73.0 LYMPH % (test code=LY%) 13.5 % 20.0-55.0 MONO % (test code=MO%) 9.9 % 2.5-10.0 EOSINOPH % (test code=EO%) 5.0 % 0.0-5.0 BASOPHIL % (test code=BA%) 0.4 % 0.0-2.0 IG % (test code=IG%) 0.5 % 0.0-0.8 NRBC% (test code=NRBC%) 0.0 % 0.0-0.2 MANDIFF (test code=WMDIFF) NO NO RBC MORPH (test code=WRBCMOR) NORMAL DRUGS OF [id number] 22:00:00* Test Item Value Reference Range Comments DRUG SCRN (test code=HDOA) URINE DRUG SCREEN This is an unconfirmed screening result and should not be used for non-medical purposes CANNABINOD (test code=88C) Negative NEGATIVE AMPHETAMINE (test code=84A) Negative NEGATIVE BENZODIAZP (test code=86A) Negative NEGATIVE BARBITURAT (test code=85A) Negative NEGATIVE OPIATES (test code=92B) Negative NEGATIVE COCAINE (test code=87A) Negative NEGATIVE PHENCYCLID (test code=66A) Negative NEGATIVE METHADONE (test code=64A) Negative NEGATIVE DOAH (test code=DOAH) URINE DRUG SCREEN Cut-off values are as follows: Cannabinoids 50 ng/mL Cocaine 300 ng/mL Amphetamines 1000 ng/mL Phencyclidine 25 ng/mL Benzodiazepines 200 ng.mL Methadone 300 ng/mL Barbiturates 200 ng/mL Opiates 2000 ng/mL [id number] 21:09:00* Test Item Value Reference Range Comments SALICYLATE (test code=94B) <1.7 mg/dL 2.8-20.0 [id number] 21:04:00* Test Item Value Reference Range Comments ACETAMINPH (test code=94M) <2.0 ug/mL 10.0-30.0 BASIC METABOLIC [id number] 21:02:00* Test Item Value Reference Range Comments GLUCOSE (test code=06D) 119 mg/dL 75-100 SODIUM (test code=01A) 138 mmol/L 136-145 POTASSIUM (test code=01B) 3.6 mmol/L 3.6-5.1 CHLORIDE (test code=04A) 106 mmol/L 98-107 CO2 (test code=02A) 24 mmol/L 22-32 ANION GAP (test code=ANG) 11.6 mmol/L BUN (test code=05D) 15 mg/dL 7-18 CREATININE (test code=03E) 1.0 mg/dL 0.7-1.3 BUN/CREA (test code=BCR) 16 12-20 CALCIUM (test code=09D) 8.2 mg/dL 8.3-9.5 ALCOHOL BLOOD (ETOH)2017-01-22 21:01:00* Test Item Value Reference Range Comments ETOH (test code=HALC) ETHANOL The result is to be used only for medical purposes ALCOHOL (test code=56A) <10 mg/dL <=10 CBC (INCLUDES AUTOMATED DIFFERENTIAL)2017-01-22 20:48:00* Test Item Value Reference Range Comments WBC (test code=WBC) 9.9 10\S\3/uL 4.5-11.0 RBC (test code=RBC) 3.92 10\S\6/uL 4.20-5.60 HGB (test code=HBG) 9.2 g/dL 14.0-18.0 HCT (test code=HCT) 30.1 % 35.0-46.0 MCV (test code=MCV) 76.8 fL 80.0-94.0 MCH (test code=MCH) 23.5 pg 27.0-31.0 MCHC (test code=MCHC) 30.6 g/dL 32.0-36.0 RDW (test code=RDW) 18.7 % 11.5-14.5 PLT (test code=PLT) 310 10\S\3/uL 130-400 MPV (test code=MPV) 8.9 fL 9.4-12.4 NEUTROP # (test code=NE#) 6.6 10\S\3/uL 2.0-8.0 LYMPH # (test code=LY#) 1.7 10\S\3/uL 1.2-4.0 MONOCYTE # (test code=MO#) 1.1 10\S\3/uL 0.0-1.1 EOSINOPH # (test code=EO#) 0.4 10\S\3/uL 0.0-0.7 BASOPHIL # (test code=BA#) 0.0 10\S\3/uL 0.0-0.3 IG # (test code=IG#) 0.05 10\S\3/uL 0.00-0.06 NRBC # (test code=NRBC#) 0.00 10\S\3/uL 0.00-0.01 NEUTROPH % (test code=NE%) 66.1 % 35.0-73.0 LYMPH % (test code=LY%) 17.5 % 20.0-55.0 MONO % (test code=MO%) 11.5 % 2.5-10.0 EOSINOPH % (test code=EO%) 4.0 % 0.0-5.0 BASOPHIL % (test code=BA%) 0.4 % 0.0-2.0 IG % (test code=IG%) 0.5 % 0.0-0.8 NRBC% (test code=NRBC%) 0.0 % 0.0-0.2 MANDIFF (test code=MDIFF) NO NO RBC MORPH (test code=RBCMOR) NORMAL XR HAND LEFT COMPLETE 3 [id number] 20:30:59XR HAND LEFT COMPLETE 3 VIEWSLocation:Q78Yyauh hours services sjiudptz24/2/2017 8:29 PMIndication:medical clearanceComparison:Not availableFindings:Fusion of the radius, proximal carpal row and distal carpal row with asingle screw identified within the volar aspect of the wrist. The distal ulnais also deformed. There is widening of the distal radial ulnar joint suggestiveof prior trauma. The metac arpals and phalanges appear normal. No acute fractureor dislocation is evident. Extensive soft tissue swelling is noted.Impression:Wrist fusion as above with no acute bony abnormality noted.Extensive soft tissue swelling is present.XR CHEST 1 VIEW [id number] 20:28:11LOCATION CODE: A1.HISTORY: medical clearanceCOMPARISON: 01/18/17FINDINGS: The cardiomediastinal silhouette and pulmonary vasculature are normal.There are mild bilateral lower lobe increased interstitial markings for whichclinical correlation is suggested to evaluate acute versus chronic. No evidence of consolidation, effusion, or pneumothorax is present.Osseous structures are unremarkable.IMPRESSION: 1. Bilateral lower lobe increased interstitial markings.[id number] 12:59:00* Test Item Value Reference Range Comments SALICYLATE (test code=94B) <1.7 mg/dL 2.8-20.0 COMPREHENSIVE METABOLIC [id number] 12:58:00* Test Item Value Reference Range Comments GLUCOSE (test code=06D) 205 mg/dL 75-100 SODIUM (test code=01A) 139 mmol/L 136-145 POTASSIUM (test code=01B) 3.8 mmol/L 3.6-5.1 CHLORIDE (test code=04A) 106 mmol/L 98-107 CO2 (test code=02A) 26 mmol/L 22-32 ANION GAP (test code=ANG) 10.8 mmol/L BUN (test code=05D) 11 mg/dL 7-18 CREATININE (test code=03E) 0.8 mg/dL 0.7-1.3 BUN/CREA (test code=BCR) 14 12-20 CALCIUM (test code=09D) 8.1 mg/dL 8.3-9.5 BILI TOTAL (test code=11A) 0.1 mg/dL 0.2-1.0 PROTEIN (test code=07D) 6.6 g/dL 6.4-8.2 ALBUMIN (test code=08D) 2.5 g/dL 3.5-4.8 GLOBULIN (test code=GLB) 4.1 g/dL 1.5-3.8 ALB/GLOB (test code=AGRR) 0.6 1.0-2.6 ALK PHOS (test code=35A) 95 IU/L 42-121 AST (test code=30A) 52 IU/L <=42 ALT (test code=31A) 80 IU/L <=78 [id number] 12:58:00* Test Item Value Reference Range Comments ACETAMINPH (test code=94M) <2.0 ug/mL 10.0-30.0 LIVER [id number] 12:58:00* Test Item Value Reference Range Comments BILI TOTAL (test code=11A) 0.1 mg/dL 0.2-1.0 BILI DIRCT (test code=12A) <0.1 mg/dL 0.0-0.2 BILI INDIR (test code=BILII) 0.0 mg/dL <=0.8 PROTEIN (test code=07D) 6.6 g/dL 6.4-8.2 ALBUMIN (test code=08D) 2.5 g/dL 3.5-4.8 GLOBULIN (test code=GLB) 4.1 g/dL 1.5-3.8 ALB/GLOB (test code=AGRR) 0.6 1.0-2.6 ALK PHOS (test code=35A) 95 IU/L 42-121 AST (test code=30A) 52 IU/L <=42 ALT (test code=31A) 80 IU/L <=78 ALCOHOL BLOOD (ETOH)2017-01-16 12:52:00* Test Item Value Reference Range Comments ETOH (test code=HALC) ETHANOL The result is to be used only for medical purposes ALCOHOL (test code=56A) <10 mg/dL <=10 AMMONIA [id number] 12:48:00* Test Item Value Reference Range Comments AMMONIA (test code=54A) 26 umol/L 11-32 CBC (INCLUDES AUTOMATED DIFFERENTIAL)2017-01-16 12:39:00* Test Item Value Reference Range Comments WBC (test code=WBC) 7.9 10\S\3/uL 4.5-11.0 RBC (test code=RBC) 3.67 10\S\6/uL 4.20-5.60 HGB (test code=HBG) 8.7 g/dL 14.0-18.0 HCT (test code=HCT) 28.7 % 35.0-46.0 MCV (test code=MCV) 78.2 fL 80.0-94.0 MCH (test code=MCH) 23.7 pg 27.0-31.0 MCHC (test code=MCHC) 30.3 g/dL 32.0-36.0 RDW (test code=RDW) 18.7 % 11.5-14.5 PLT (test code=PLT) 238 10\S\3/uL 130-400 MPV (test code=MPV) 8.6 fL 9.4-12.4 NEUTROP # (test code=NE#) 5.8 10\S\3/uL 2.0-8.0 LYMPH # (test code=LY#) 1.0 10\S\3/uL 1.2-4.0 MONOCYTE # (test code=MO#) 0.7 10\S\3/uL 0.0-1.1 EOSINOPH # (test code=EO#) 0.3 10\S\3/uL 0.0-0.7 BASOPHIL # (test code=BA#) 0.0 10\S\3/uL 0.0-0.3 IG # (test code=IG#) 0.03 10\S\3/uL 0.00-0.06 NRBC # (test code=NRBC#) 0.00 10\S\3/uL 0.00-0.01 NEUTROPH % (test code=NE%) 74.0 % 35.0-73.0 LYMPH % (test code=LY%) 13.1 % 20.0-55.0 MONO % (test code=MO%) 8.6 % 2.5-10.0 EOSINOPH % (test code=EO%) 3.4 % 0.0-5.0 BASOPHIL % (test code=BA%) 0.5 % 0.0-2.0 IG % (test code=IG%) 0.4 % 0.0-0.8 NRBC% (test code=NRBC%) 0.0 % 0.0-0.2 MANDIFF (test code=MDIFF) NO NO RBC MORPH (test code=RBCMOR) NORMAL DRUGS OF [id number] 10:50:00* Test Item Value Reference Range Comments DRUG SCRN (test code=HDOA) URINE DRUG SCREEN This is an unconfirmed screening result and should not be used for non-medical purposes CANNABINOD (test code=88C) Negative NEGATIVE AMPHETAMINE (test code=84A) Negative NEGATIVE BENZODIAZP (test code=86A) Negative NEGATIVE BARBITURAT (test code=85A) Negative NEGATIVE OPIATES (test code=92B) Negative NEGATIVE COCAINE (test code=87A) Negative NEGATIVE PHENCYCLID (test code=66A) Negative NEGATIVE METHADONE (test code=64A) Negative NEGATIVE DOAH (test code=DOAH) URINE DRUG SCREEN Cut-off values are as follows: Cannabinoids 50 ng/mL Cocaine 300 ng/mL Amphetamines 1000 ng/mL Phencyclidine 25 ng/mL Benzodiazepines 200 ng.mL Methadone 300 ng/mL Barbiturates 200 ng/mL Opiates 2000 ng/mL [id number] 10:44:00* Test Item Value Reference Range Comments COLOR (test code=COLU) YELLOW YELLOW CLARITY (test code=CLA) CLEAR CLEAR GLUCOSE UR (test code=UA GLUCOSE) NEGATIVE NEGATIVE BILI UR (test code=BILE) NEGATIVE NEGATIVE KETONES UR (test code=CHELSEA) NEGATIVE NEGATIVE SP GRAVITY (test code=SPGR) 1.019 1.005-1.030 PH UR (test code=PH) 8.0 4.5-8.0 PROTEIN UR (test code=PU) NEGATIVE NEGATIVE UROBIL UR (test code=UROQ) 0.2 EU/dL 0.2-1.0 NITRITE UR (test code=NITRITE) NEGATIVE NEGATIVE BLOOD UR (test code=UA BLOOD) NEGATIVE NEGATIVE LEUK ES UR (test code=LEUK) NEGATIVE NEGATIVE XR CHEST 1 VIEW [id number] 10:32:43AP PORTABLE CHEST AT 0940 HOURSLOCATION CODE: [id number]: Cyclic issuesComparison: 01/13/17FINDINGS:Some mild vascular prominence is likely related to patient positioning. Theheart size is normal and the lungs are otherwise grossly clear. No patchy lobarconsolidations or gross pleural effusions are demonstrated.IMPRESSION:1. No acute cardiopulmonary disease demonstrated.XR FOOT LEFT COMPLETE 3 VIEWS 2017-01-16 10:27:41Left foot, 3 viewsLOCATION CODE: [id number]: Suspected foreign body.Findings:Soft tissue swelling is evident over the plantar aspect of the distal foot. Noradiopaque foreign bodies are appreciated. No fractures are seen.IMPRESSION:1. Soft tissue swelling without definite evidence for radiopaque foreign body.CARDIAC [id number] 04:37:00* Test Item Value Reference Range Comments TROPONIN I (test code=A84) <0.015 ng/mL 0.000-0.045 CKMB (test code=A49) 2.6 ng/mL <=3.6 CPK (test code=32A) 472 IU/L 39-308 CBC (INCLUDES AUTOMATED DIFFERENTIAL)2017-01-15 04:10:00* Test Item Value Reference Range Comments WBC (test code=WBC) 7.0 10\S\3/uL 4.5-11.0 RBC (test code=RBC) 3.71 10\S\6/uL 4.20-5.60 HGB (test code=HBG) 8.7 g/dL 14.0-18.0 HCT (test code=HCT) 29.8 % 35.0-46.0 MCV (test code=MCV) 80.3 fL 80.0-94.0 MCH (test code=MCH) 23.5 pg 27.0-31.0 MCHC (test code=MCHC) 29.2 g/dL 32.0-36.0 RDW (test code=RDW) 18.9 % 11.5-14.5 PLT (test code=PLT) 273 10\S\3/uL 130-400 MPV (test code=MPV) 8.8 fL 9.4-12.4 NEUTROP # (test code=NE#) 4.9 10\S\3/uL 2.0-8.0 LYMPH # (test code=LY#) 1.0 10\S\3/uL 1.2-4.0 MONOCYTE # (test code=MO#) 0.6 10\S\3/uL 0.0-1.1 EOSINOPH # (test code=EO#) 0.4 10\S\3/uL 0.0-0.7 BASOPHIL # (test code=BA#) 0.0 10\S\3/uL 0.0-0.3 IG # (test code=IG#) 0.03 10\S\3/uL 0.00-0.06 NRBC # (test code=NRBC#) 0.00 10\S\3/uL 0.00-0.01 NEUTROPH % (test code=NE%) 70.0 % 35.0-73.0 LYMPH % (test code=LY%) 14.0 % 20.0-55.0 MONO % (test code=MO%) 8.8 % 2.5-10.0 EOSINOPH % (test code=EO%) 6.2 % 0.0-5.0 BASOPHIL % (test code=BA%) 0.6 % 0.0-2.0 IG % (test code=IG%) 0.4 % 0.0-0.8 NRBC% (test code=NRBC%) 0.0 % 0.0-0.2 MANDIFF (test code=MDIFF) NO NO RBC MORPH (test code=RBCMOR) NORMAL BRAIN NATRIURETIC [id number] 19:19:00* Test Item Value Reference Range Comments proBNP (test code=PBNP) 118 pg/mL 0-125 CARDIAC [id number] 05:55:00* Test Item Value Reference Range Comments TROPONIN I (test code=A84) <0.015 ng/mL 0.000-0.045 CKMB (test code=A49) 4.4 ng/mL <=3.6 CPK (test code=32A) 920 IU/L 39-308 CARDIAC [id number] 00:01:00* Test Item Value Reference Range Comments TROPONIN I (test code=A84) <0.015 ng/mL 0.000-0.045 CKMB (test code=A49) 4.9 ng/mL <=3.6 CPK (test code=32A) 1068 IU/L 39-308 CARDIAC [id number] 18:11:00* Test Item Value Reference Range Comments TROPONIN I (test code=A84) <0.015 ng/mL 0.000-0.045 CKMB (test code=A49) 6.4 ng/mL <=3.6 CPK (test code=32A) 1413 IU/L 39-308 COMPREHENSIVE METABOLIC [id number] 17:54:00* Test Item Value Reference Range Comments GLUCOSE (test code=06D) 134 mg/dL 75-100 SODIUM (test code=01A) 140 mmol/L 136-145 POTASSIUM (test code=01B) 3.8 mmol/L 3.6-5.1 CHLORIDE (test code=04A) 108 mmol/L 98-107 CO2 (test code=02A) 25 mmol/L 22-32 ANION GAP (test code=ANG) 10.8 mmol/L BUN (test code=05D) 11 mg/dL 7-18 CREATININE (test code=03E) 0.6 mg/dL 0.7-1.3 BUN/CREA (test code=BCR) 17 12-20 CALCIUM (test code=09D) 8.2 mg/dL 8.3-9.5 BILI TOTAL (test code=11A) 0.1 mg/dL 0.2-1.0 PROTEIN (test code=07D) 6.9 g/dL 6.4-8.2 ALBUMIN (test code=08D) 2.8 g/dL 3.5-4.8 GLOBULIN (test code=GLB) 4.1 g/dL 1.5-3.8 ALB/GLOB (test code=AGRR) 0.7 1.0-2.6 ALK PHOS (test code=35A) 87 IU/L 42-121 AST (test code=30A) 51 IU/L <=42 ALT (test code=31A) 26 IU/L <=78 [id number] 17:47:00* Test Item Value Reference Range Comments MAGNESIUM (test code=48A) 1.7 mg/dL 1.8-2.4 PRO TIME AND [id number] 17:45:00* Test Item Value Reference Range Comments PT (test code=TT) 11.1 s 9.8-13.6 INR (test code=INR) 1.0 INRH (test code=INRH) SUGGESTED THERAPEUTIC RANGE FOR INR: 2.5 - 3.5 For Patients with Prosthetic Valves or Patients with recurrent Thromboembolic Events 2.0 - 3.0 For Most Other Applications PTT (test code=PTT) 28.2 s 20.2-38.0 PTTH (test code=PTTH) To monitor the effectiveness of heparin, we offer the Anti-Xa (Heparin Assay). It can be used for either unfractionated or LMW Heparin. Order Code is ANTI-XA [id number] 17:45:00* Test Item Value Reference Range Comments D-DIMER (test code=DDI) <200 ng/mL D-DU 0-234 D-DIMER COMMENT (test code=DDCOM) *Level to rule out DVT or PE: <235 ng/mL D-DU* DRUGS OF [id number] 17:44:00* Test Item Value Reference Range Comments DRUG SCRN (test code=HDOA) URINE DRUG SCREEN This is an unconfirmed screening result and should not be used for non-medical purposes CANNABINOD (test code=88C) Negative NEGATIVE AMPHETAMINE (test code=84A) Negative NEGATIVE BENZODIAZP (test code=86A) Negative NEGATIVE BARBITURAT (test code=85A) Negative NEGATIVE OPIATES (test code=92B) Negative NEGATIVE COCAINE (test code=87A) Negative NEGATIVE PHENCYCLID (test code=66A) Negative NEGATIVE METHADONE (test code=64A) Negative NEGATIVE DOAH (test code=DOAH) URINE DRUG SCREEN Cut-off values are as follows: Cannabinoids 50 ng/mL Cocaine 300 ng/mL Amphetamines 1000 ng/mL Phencyclidine 25 ng/mL Benzodiazepines 200 ng.mL Methadone 300 ng/mL Barbiturates 200 ng/mL Opiates 2000 ng/mL [id number] 17:38:00* Test Item Value Reference Range Comments COLOR (test code=COLU) YELLOW YELLOW CLARITY (test code=CLA) CLEAR CLEAR GLUCOSE UR (test code=UA GLUCOSE) NEGATIVE NEGATIVE BILI UR (test code=BILE) NEGATIVE NEGATIVE KETONES UR (test code=CHELSEA) NEGATIVE NEGATIVE SP GRAVITY (test code=SPGR) 1.020 1.005-1.030 PH UR (test code=PH) 7.0 4.5-8.0 PROTEIN UR (test code=PU) NEGATIVE NEGATIVE UROBIL UR (test code=UROQ) 0.2 EU/dL 0.2-1.0 NITRITE UR (test code=NITRITE) NEGATIVE NEGATIVE BLOOD UR (test code=UA BLOOD) NEGATIVE NEGATIVE LEUK ES UR (test code=LEUK) NEGATIVE NEGATIVE CBC (INCLUDES AUTOMATED DIFFERENTIAL)2017-01-13 17:35:00* Test Item Value Reference Range Comments WBC (test code=WBC) 8.9 10\S\3/uL 4.5-11.0 RBC (test code=RBC) 3.79 10\S\6/uL 4.20-5.60 HGB (test code=HBG) 9.0 g/dL 14.0-18.0 HCT (test code=HCT) 28.8 % 35.0-46.0 MCV (test code=MCV) 76.0 fL 80.0-94.0 MCH (test code=MCH) 23.7 pg 27.0-31.0 MCHC (test code=MCHC) 31.3 g/dL 32.0-36.0 RDW (test code=RDW) 19.3 % 11.5-14.5 PLT (test code=PLT) 279 10\S\3/uL 130-400 MPV (test code=MPV) 8.3 fL 9.4-12.4 NEUTROP # (test code=NE#) 6.2 10\S\3/uL 2.0-8.0 LYMPH # (test code=LY#) 1.3 10\S\3/uL 1.2-4.0 MONOCYTE # (test code=MO#) 0.9 10\S\3/uL 0.0-1.1 EOSINOPH # (test code=EO#) 0.5 10\S\3/uL 0.0-0.7 BASOPHIL # (test code=BA#) 0.0 10\S\3/uL 0.0-0.3 IG # (test code=IG#) 0.05 10\S\3/uL 0.00-0.06 NRBC # (test code=NRBC#) 0.00 10\S\3/uL 0.00-0.01 NEUTROPH % (test code=NE%) 69.2 % 35.0-73.0 LYMPH % (test code=LY%) 14.6 % 20.0-55.0 MONO % (test code=MO%) 9.6 % 2.5-10.0 EOSINOPH % (test code=EO%) 5.6 % 0.0-5.0 BASOPHIL % (test code=BA%) 0.4 % 0.0-2.0 IG % (test code=IG%) 0.6 % 0.0-0.8 NRBC% (test code=NRBC%) 0.0 % 0.0-0.2 MANDIFF (test code=MDIFF) NO NO RBC MORPH (test code=RBCMOR) NORMAL XR CHEST 1 VIEW [id number] 16:37:08CHEST X-RAY 1 VIEWLocation: [id number] HISTORY: chest painTechnique:A single frontal view of the chest was obtained. Comparison made to priorstudy 01/13/17 at 1:21 AMFINDINGS:Bony structures are unremarkable. The aortic, hilar and cardiac outlines arenormal. The lungs are clear of infiltrates or suspicious nodules. No pleuraleffusion or pneumothorax. IMPRESSION:Normal chest x-ray. CARDIAC [id number] 01:47:00* Test Item Value Reference Range Comments TROPONIN I (test code=A84) <0.015 ng/mL 0.000-0.045 CKMB (test code=A49) 7.6 ng/mL <=3.6 CPK (test code=32A) =1473 IU/L 39-308 Previously reported as: >1000 On 01/13/2017 01:47 By [email or web address] COMPREHENSIVE METABOLIC [id number] 01:42:00* Test Item Value Reference Range Comments GLUCOSE (test code=06D) 209 mg/dL 75-100 SODIUM (test code=01A) 140 mmol/L 136-145 POTASSIUM (test code=01B) 3.6 mmol/L 3.6-5.1 CHLORIDE (test code=04A) 107 mmol/L 98-107 CO2 (test code=02A) 24 mmol/L 22-32 ANION GAP (test code=ANG) 12.6 mmol/L BUN (test code=05D) 16 mg/dL 7-18 CREATININE (test code=03E) 0.9 mg/dL 0.7-1.3 BUN/CREA (test code=BCR) 17 12-20 CALCIUM (test code=09D) 8.0 mg/dL 8.3-9.5 BILI TOTAL (test code=11A) <0.1 mg/dL 0.2-1.0 PROTEIN (test code=07D) 6.6 g/dL 6.4-8.2 ALBUMIN (test code=08D) 2.7 g/dL 3.5-4.8 GLOBULIN (test code=GLB) 3.9 g/dL 1.5-3.8 ALB/GLOB (test code=AGRR) 0.7 1.0-2.6 ALK PHOS (test code=35A) 96 IU/L 42-121 AST (test code=30A) 43 IU/L <=42 ALT (test code=31A) 23 IU/L <=78 PRO TIME AND [id number] 01:41:00* Test Item Value Reference Range Comments PT (test code=TT) 10.6 s 9.8-13.6 INR (test code=INR) 1.0 INRH (test code=INRH) SUGGESTED THERAPEUTIC RANGE FOR INR: 2.5 - 3.5 For Patients with Prosthetic Valves or Patients with recurrent Thromboembolic Events 2.0 - 3.0 For Most Other Applications PTT (test code=PTT) 27.7 s 20.2-38.0 PTTH (test code=PTTH) To monitor the effectiveness of heparin, we offer the Anti-Xa (Heparin Assay). It can be used for either unfractionated or LMW Heparin. Order Code is ANTI-XA CBC (INCLUDES AUTOMATED DIFFERENTIAL)2017-01-13 01:31:00* Test Item Value Reference Range Comments WBC (test code=WBC) 8.7 10\S\3/uL 4.5-11.0 RBC (test code=RBC) 3.90 10\S\6/uL 4.20-5.60 HGB (test code=HBG) 9.3 g/dL 14.0-18.0 HCT (test code=HCT) 30.3 % 35.0-46.0 MCV (test code=MCV) 77.7 fL 80.0-94.0 MCH (test code=MCH) 23.8 pg 27.0-31.0 MCHC (test code=MCHC) 30.7 g/dL 32.0-36.0 RDW (test code=RDW) 19.3 % 11.5-14.5 PLT (test code=PLT) 272 10\S\3/uL 130-400 MPV (test code=MPV) 8.7 fL 9.4-12.4 NEUTROP # (test code=NE#) 6.0 10\S\3/uL 2.0-8.0 LYMPH # (test code=LY#) 1.2 10\S\3/uL 1.2-4.0 MONOCYTE # (test code=MO#) 0.9 10\S\3/uL 0.0-1.1 EOSINOPH # (test code=EO#) 0.6 10\S\3/uL 0.0-0.7 BASOPHIL # (test code=BA#) 0.0 10\S\3/uL 0.0-0.3 IG # (test code=IG#) 0.02 10\S\3/uL 0.00-0.06 NRBC # (test code=NRBC#) 0.00 10\S\3/uL 0.00-0.01 NEUTROPH % (test code=NE%) 68.6 % 35.0-73.0 LYMPH % (test code=LY%) 13.8 % 20.0-55.0 MONO % (test code=MO%) 9.8 % 2.5-10.0 EOSINOPH % (test code=EO%) 7.1 % 0.0-5.0 BASOPHIL % (test code=BA%) 0.5 % 0.0-2.0 IG % (test code=IG%) 0.2 % 0.0-0.8 NRBC% (test code=NRBC%) 0.0 % 0.0-0.2 MANDIFF (test code=MDIFF) NO NO RBC MORPH (test code=RBCMOR) NORMAL XR CHEST 1 VIEW [id number] 01:30:11XR CHEST 1 VIEW PORTABLELocation:[id number] hours services provided 01/13/2017 1:29 AMIndication:Chest painComparison:01/02/17Findings:The lungs are equally and sy mmetrically inflated. The trachea ismidline. The cardiac silhouette is normal in size. No acute bony abnormality.Impression:No acute cardiopulmonary disease. GLUCOMETER GLUCOSE- LAB USE [id number] 20:56:00* Test Item Value Reference Range Comments GLUCOMETER (test code=GMG) 149 mg/dL 70-100 Meter ID: [id number]: [id number] SUZANNE TURCIOS GLUCOMETER GLUCOSE- LAB USE [id number] 15:22:00* Test Item Value Reference Range Comments GLUCOMETER (test code=GMG) 140 mg/dL 70-100 CLEANED METERMeter ID: [id number]: [id number] KAYLEYCHARLES & COLVARD LTDS GLUCOMETER GLUCOSE- LAB USE [id number] 10:58:00* Test Item Value Reference Range Comments GLUCOMETER (test code=GMG) 106 mg/dL 70-100 CLEANED METERMeter ID: [id number]: [id number] KAYLEYAnokion SA BELL GLUCOMETER GLUCOSE- LAB USE [id number] 05:43:00* Test Item Value Reference Range Comments GLUCOMETER (test code=GMG) 162 mg/dL 70-100 CLEANED METERMeter ID: [id number]: [id number] ZANDERDOROTHY NAQVIVALENTE CBC WITH [id number] 03:09:00* Test Item Value Reference Range Comments WBC (test code=WBC) 5.9 10\S\3/uL 4.5-11.0 RBC (test code=RBC) 3.84 10\S\6/uL 4.20-5.60 HGB (test code=HBG) 9.2 g/dL 14.0-18.0 HCT (test code=HCT) 32.7 % 35.0-46.0 MCV (test code=MCV) 85.2 fL 80.0-94.0 MCH (test code=MCH) 24.0 pg 27.0-31.0 MCHC (test code=MCHC) 28.1 g/dL 32.0-36.0 RDW (test code=RDW) 20.0 % 11.5-14.5 PLT (test code=PLT) 229 10\S\3/uL 130-400 MPV (test code=MPV) 9.2 fL 9.4-12.4 NEUTROP # (test code=NE#) 3.5 10\S\3/uL 2.0-8.0 LYMPH # (test code=LY#) 1.3 10\S\3/uL 1.2-4.0 MONOCYTE # (test code=MO#) 0.6 10\S\3/uL 0.0-1.1 EOSINOPH # (test code=EO#) 0.4 10\S\3/uL 0.0-0.7 BASOPHIL # (test code=BA#) 0.1 10\S\3/uL 0.0-0.3 IG # (test code=IG#) 0.02 10\S\3/uL 0.00-0.06 NRBC # (test code=NRBC#) 0.00 10\S\3/uL 0.00-0.01 NEUTROPH % (test code=NE%) 59.5 % 35.0-73.0 LYMPH % (test code=LY%) 22.3 % 20.0-55.0 MONO % (test code=MO%) 10.5 % 2.5-10.0 EOSINOPH % (test code=EO%) 6.6 % 0.0-5.0 BASOPHIL % (test code=BA%) 0.8 % 0.0-2.0 IG % (test code=IG%) 0.3 % 0.0-0.8 NRBC% (test code=NRBC%) 0.0 % 0.0-0.2 PLT EST (test code=PLTEST) ADEQUATE ADEQUATE PLT MORPH (test code=PLTMOR) NORMAL (1.5-3 um) NORMAL ANISO (test code=ANISO) 1+ NONE POIK (test code=POIK) 1+ NONE HYPOCHROM (test code=HYPOC) 1+ NONE MICROCYTIC (test code=MICRO) 2+ NONE MACRO (test code=MACRO) 1+ NONE POLYCHROM (test code=POLY) 1+ NONE TARGET (test code=TARG) 1+ NONE TOXIC GRAN (test code=TOXG) 1+ NONE OVALOCYTES (test code=OVA) 1+ NONE STOMATO (test code=STOM) 1+ NONE BASIC METABOLIC [id number] 03:00:00* Test Item Value Reference Range Comments GLUCOSE (test code=06D) 109 mg/dL 75-100 SODIUM (test code=01A) 139 mmol/L 136-145 POTASSIUM (test code=01B) 3.8 mmol/L 3.6-5.1 CHLORIDE (test code=04A) 109 mmol/L 98-107 CO2 (test code=02A) 22 mmol/L 22-32 ANION GAP (test code=ANG) 11.8 mmol/L BUN (test code=05D) 13 mg/dL 7-18 CREATININE (test code=03E) 0.6 mg/dL 0.7-1.3 BUN/CREA (test code=BCR) 20 12-20 CALCIUM (test code=09D) 8.0 mg/dL 8.3-9.5 GLUCOMETER GLUCOSE- LAB USE [id number] 20:47:00* Test Item Value Reference Range Comments GLUCOMETER (test code=GMG) 170 mg/dL 70-100 CLEANED METERMeter ID: [id number]: [id number] ZANDER VICTOR GLUCOMETER GLUCOSE- LAB USE [id number] 15:57:00* Test Item Value Reference Range Comments GLUCOMETER (test code=GMG) 112 mg/dL 70-100 CLEANED METERMeter ID: [id number]: [id number]YLE[address] MARTÍNEZ [facility] METABOLIC [id number] 10:58:00* Test Item Value Reference Range Comments GLUCOSE (test code=06D) 123 mg/dL 75-100 SODIUM (test code=01A) 139 mmol/L 136-145 POTASSIUM (test code=01B) 3.5 mmol/L 3.6-5.1 CHLORIDE (test code=04A) 107 mmol/L 98-107 CO2 (test code=02A) 23 mmol/L 22-32 ANION GAP (test code=ANG) 12.5 mmol/L BUN (test code=05D) 13 mg/dL 7-18 CREATININE (test code=03E) 0.7 mg/dL 0.7-1.3 BUN/CREA (test code=BCR) 18 12-20 CALCIUM (test code=09D) 8.2 mg/dL 8.3-9.5 BILI TOTAL (test code=11A) 0.4 mg/dL 0.2-1.0 PROTEIN (test code=07D) 7.7 g/dL 6.4-8.2 ALBUMIN (test code=08D) 3.0 g/dL 3.5-4.8 GLOBULIN (test code=GLB) 4.7 g/dL 1.5-3.8 ALB/GLOB (test code=AGRR) 0.6 1.0-2.6 ALK PHOS (test code=35A) 96 IU/L 42-121 AST (test code=30A) 35 IU/L <=42 ALT (test code=31A) 31 IU/L <=78 CARDIAC [id number] 10:51:00* Test Item Value Reference Range Comments TROPONIN I (test code=A84) <0.015 ng/mL 0.000-0.045 CKMB (test code=A49) 3.1 ng/mL <=3.6 CPK (test code=32A) 312 IU/L 39-308 XR CHEST 1 VIEW [id number] 10:49:27EXAM: Portable chest x-rayLOCATION: [id number]: admit cxr. COMPARISON: chest radiograph 12/10/2016DISCUSSION:A single AP portable chest radiograph was submitted for interpretation. Theprojection is lordotic.The lungs are grossly clear. The cardiac silhouette is within normal limits.Osseous structures are grossly intact.IMPRESSION:No acute cardiopulmonary abnormalities.CBC (INCLUDES AUTOMATED DIFFERENTIAL)2017-01-02 10:22:00* Test Item Value Reference Range Comments WBC (test code=WBC) 7.7 10\S\3/uL 4.5-11.0 RBC (test code=RBC) 4.10 10\S\6/uL 4.20-5.60 HGB (test code=HBG) 9.7 g/dL 14.0-18.0 HCT (test code=HCT) 32.1 % 35.0-46.0 MCV (test code=MCV) 78.3 fL 80.0-94.0 MCH (test code=MCH) 23.7 pg 27.0-31.0 MCHC (test code=MCHC) 30.2 g/dL 32.0-36.0 RDW (test code=RDW) 20.0 % 11.5-14.5 PLT (test code=PLT) 274 10\S\3/uL 130-400 MPV (test code=MPV) 9.0 fL 9.4-12.4 NEUTROP # (test code=NE#) 5.4 10\S\3/uL 2.0-8.0 LYMPH # (test code=LY#) 1.2 10\S\3/uL 1.2-4.0 MONOCYTE # (test code=MO#) 0.7 10\S\3/uL 0.0-1.1 EOSINOPH # (test code=EO#) 0.2 10\S\3/uL 0.0-0.7 BASOPHIL # (test code=BA#) 0.0 10\S\3/uL 0.0-0.3 IG # (test code=IG#) 0.02 10\S\3/uL 0.00-0.06 NRBC # (test code=NRBC#) 0.00 10\S\3/uL 0.00-0.01 NEUTROPH % (test code=NE%) 71.1 % 35.0-73.0 LYMPH % (test code=LY%) 15.7 % 20.0-55.0 MONO % (test code=MO%) 9.5 % 2.5-10.0 EOSINOPH % (test code=EO%) 2.9 % 0.0-5.0 BASOPHIL % (test code=BA%) 0.5 % 0.0-2.0 IG % (test code=IG%) 0.3 % 0.0-0.8 NRBC% (test code=NRBC%) 0.0 % 0.0-0.2 MANDIFF (test code=MDIFF) NO NO RBC MORPH (test code=RBCMOR) NORMAL POCT-GLUCOSE [id number] 10:45:00* Test Item Value Reference Range Comments POC-GLUCOSE METER (BEAKER) (test gvyd=5145) 194 mg/dL 70-[address] [facility] [address] [facility] [address] POCT-GLUCOSE [id number] 05:32:00* Test Item Value Reference Range Comments POC-GLUCOSE METER (BEAKER) (test ndye=5011) 128 mg/dL 70-[address] [facility] [address] [facility] [address] TROPONIN [id number] 04:16:00* Test Item Value Reference Range Comments TROPONIN I (BEAKER) (test bsae=468) < ng/mL 0.00-0.15 Troponin I (TnI) levels must be interpreted in the context of the presenting sym ptoms and the clinical findings. Elevated TnI levels indicate myocardial damage, but are not specific for ischemic heart disease. Elevated TnI levels are seen i n patients with other cardiac conditions (including myocarditis and congestive h eart failure), and slight TnI elevations occur in patients with other conditions , including sepsis, renal failure, acidosis, acute neurological disease, and per sistent tachyarrhythmia.VENOUS DOPPLER LEGS, [id number] 21:23:00Reason for exam:->eval dvtFINAL REPORT VENOUS DOPPLER LEGS, BILATERAL INDICATION: eval dvt COMPARISON: None TECHNIQUE: Real time marr- scale, color, and spectral Doppler imaging of the bilateral lower extremity venous system. FINDINGS: Thigh: Normal compressibility and color Doppler flow within the common femoral, superficial femoral, and popliteal veins bilaterally. Calf: Normal compressibility is demonstrated within the peroneal and posterior tibial veins bilaterally. Additional findings: None. IMPRESSION: No Doppler or grayscale evidence for deep venous thrombosis bilaterally. Signed: JR Flores Robert [facility] HOSPITALeport Verified Date/Time: 12/26/2016 21:23:15 Reading Location: [address] Reading Room -GLUCOSE [id number] 20:58:00* Test Item Value Reference Range Comments POC-GLUCOSE METER (BEAKER) (test jhxs=8137) 129 mg/dL 70-[address] [facility] [address] [facility] [address] RAPID DRUG SCREEN, [id number] 20:09:00* Test Item Value Reference Range Comments BARBITURATE URINE (BEAKER) (test upxb=399) Negative Negative BENZODIAZEPINE SCREEN URINE (BEAKER) (test imjw=071) Negative Negative COCAINE (METAB.) SCREEN (BEAKER) (test yqgi=1072) Negative Negative METHADONE SCREEN (BEAKER) (test rthq=8924) Negative Negative OPIATE SCREEN URINE (BEAKER) (test ulqo=731) Positive Negative CANNABINOID SCREEN URINE (BEAKER) (test aeyh=252) Negative Negative AMPH/METHAMPH SCREEN (BEAKER) (test cdsx=2790) Negative Negative PHENCYCLIDINE SCREEN URINE (BEAKER) (test vqji=222) Negative Negative DRUG CUTOFF CONC.Cocaine 300 ng/mL Cannabinoid 50 ng/mLBenzodiazepine 200 ng/mLBarbiturate 200 ng/mLPh encyclidine 25 ng/mLOpiate 300 ng/mLMethadone 300 ng/mLAmphetamine/ 1000 ng/mL MethamphetamineThis assay provides a n unconfirmed qualitative test result for the clinical management of patients in emergency situations. Chain of custody not maintained. Some epcc-mkm-teznegu me dications, as well as adulterants, may cause inaccurate results. Clinical correl ation should be applied. A more comprehensive drug screen or confirmation of a d etected drug may be performed upon request.POCT-GLUCOSE [id number] 17:40:00 * Test Item Value Reference Range Comments POC-GLUCOSE METER (BEAKER) (test bsve=0500) 216 mg/dL 70-[address] [facility] [address] [facility] [address] TROPONIN [id number] 17:27:00* Test Item Value Reference Range Comments TROPONIN I (BEAKER) (test ptmv=504) < ng/mL 0.00-0.15 Troponin I (TnI) levels must be interpreted in the context of the presenting sym ptoms and the clinical findings. Elevated TnI levels indicate myocardial damage, but are not specific for ischemic heart disease. Elevated TnI levels are seen i n patients with other cardiac conditions (including myocarditis and congestive h eart failure), and slight TnI elevations occur in patients with other conditions , including sepsis, renal failure, acidosis, acute neurological disease, and per sistent tachyarrhythmia.[id number] 16:51:00* Test Item Value Reference Range Comments D-DIMER QUANTITATIVE (BEAKER) (test wenc=833) 0.41 MG/L FEU <0.50 Intended Use: The D-Dimer Assay can be used to aid in the diagnosis of Deep Vein Thrombosis (DVT) and Pulmonary Embolism Disease (PED).In patients with low pre- test probability, various studies concerning STA Liatest D-dimer test have repor grecia that with a cutoff value of 0.50 MG/L FEU, the Negative Predictive Value (CLOSED CIRCUIT SCREEN WATCHER V) regarding the exclusion of thrombosis is within 95-100% range.RAPID DRUG SCREEN, [id number] 23:14:00* Test Item Value Reference Range Comments BARBITURATE URINE (BEAKER) (test xjmn=137) Negative Negative BENZODIAZEPINE SCREEN URINE (BEAKER) (test wjfi=712) Negative Negative COCAINE (METAB.) SCREEN (BEAKER) (test dfad=1707) Negative Negative METHADONE SCREEN (BEAKER) (test ypgw=1460) Negative Negative OPIATE SCREEN URINE (BEAKER) (test wapf=307) Positive Negative CANNABINOID SCREEN URINE (BEAKER) (test szag=222) Negative Negative AMPH/METHAMPH SCREEN (BEAKER) (test xlyy=7004) Negative Negative PHENCYCLIDINE SCREEN URINE (BEAKER) (test lcns=927) Negative Negative DRUG CUTOFF CONC.Cocaine 300 ng/mL Cannabinoid 50 ng/mLBenzodiazepine 200 ng/mLBarbiturate 200 ng/mLPh encyclidine 25 ng/mLOpiate 300 ng/mLMethadone 300 ng/mLAmphetamine/ 1000 ng/mL MethamphetamineThis assay provides a n unconfirmed qualitative test result for the clinical management of patients in emergency situations. Chain of custody not maintained. Some iexb-stj-gwathtp me dications, as well as adulterants, may cause inaccurate results. Clinical correl ation should be applied. A more comprehensive drug screen or confirmation of a d etected drug may be performed upon request.URINALYSIS W/ [id number] 22:59:00* Test Item Value Reference Range Comments COLOR (BEAKER) (test rgag=981) Yellow CLARITY (BEAKER) (test rnbb=854) Clear SPECIFIC GRAVITY UA (BEAKER) (test rxpi=117) 1.018 1.001-1.035 PH UA (BEAKER) (test dpml=541) 5.0 5.0-8.0 PROTEIN UA (BEAKER) (test rppb=517) Negative Negative GLUCOSE UA (BEAKER) (test svku=628) 50 mg/dL Negative KETONES UA (BEAKER) (test ealq=695) Negative Negative BILIRUBIN UA (BEAKER) (test bril=050) Negative Negative BLOOD UA (BEAKER) (test fqnw=569) Negative Negative NITRITE UA (BEAKER) (test yteb=901) Negative Negative LEUKOCYTE ESTERASE UA (BEAKER) (test whfk=442) Negative Negative UROBILINOGEN UA (BEAKER) (test mqjg=474) < mg/dL 0.2-1.0 RBC UA (BEAKER) (test hawh=317) 0 /HPF WBC UA (BEAKER) (test vjxo=133) 1 /HPF MUCUS (BEAKER) (test fcve=2363) Rare SQUAMOUS EPITHELIAL (BEAKER) (test mcxu=651) < /HPF SOURCE(BEAKER) (test bcof=5712) RAD, CHEST, 1 VIEW, NON [id number] 21:40:00Reason for exam:->chest painShould this be performed at the bedside?->YesFINAL REPORT INDICATION: chest pain COMPARISON: December 25, 2016 TECHNIQUE: Single frontal view of the chest. FINDINGS: Lungs and pleura: Clear lungs. No effusion.Heart and mediastinum: Normal heart size. Unremarkable mediastinal contours.Osseous structures: No acute abnormality.Other: None. IMPRESSION: No acute intrathoracic abnormality. Signed: JR Flores Robert MDReport Verified Date/Time: 12/25/2016 21:40:10 Reading Location: [address] Reading Room Electronically signed by: KAYLA FLORES on 09:40 PM RAD, CHEST, 1 VIEW, NON [id number] 08:19:00Reason for exam:->CHEST PAINShould this be performed at the bedside?->YesFINAL REPORT TECHNIQUE: Frontal view of the chest. INDICATION: 56-year-old man with chest pain. COMPARISON: Chest radiograph the 2016. FINDINGS: LINES/TUBES: None. LUNGS: The lungs are well inflated and clear. P LEURA: No pneumothorax or significant pleural effusion. HEART AND MEDIASTINUM: T he cardiomediastinal silhouette is within normal limits. SOFT TISSUES AND BONES: Unremarkable. IMPRESSION:No acute cardiopulmonary abnormalities. No significan t change since 10/16/2016. Signed: Katheryn Donovan Verified Date/Time: 12/25/2016 08:19:49 Reading Location: [address] Body Reading [facility] signed by: KATHERYN DONOVAN MD on 12/25/2016 08:19 AM CARDIAC [id number] 00:30:00* Test Item Value Reference Range Comments TROPONIN I (test code=A84) <0.015 ng/mL 0.000-0.045 CKMB (test code=A49) 2.2 ng/mL <=3.6 CPK (test code=32A) 467 IU/L 39-308 BASIC METABOLIC [id number] 00:12:00* Test Item Value Reference Range Comments GLUCOSE (test code=06D) 117 mg/dL 75-100 SODIUM (test code=01A) 137 mmol/L 136-145 POTASSIUM (test code=01B) 4.8 mmol/L 3.6-5.1 CHLORIDE (test code=04A) 107 mmol/L 98-107 CO2 (test code=02A) 23 mmol/L 22-32 ANION GAP (test code=ANG) 11.8 mmol/L BUN (test code=05D) 16 mg/dL 7-18 CREATININE (test code=03E) 0.8 mg/dL 0.7-1.3 BUN/CREA (test code=BCR) 19 12-20 CALCIUM (test code=09D) 8.5 mg/dL 8.3-9.5 CBC WITH MORPHOLOGY *WW*2016-12-16 22:18:00* Test Item Value Reference Range Comments WBC (test code=WBC) 8.0 10\S\3/uL 4.5-11.0 RBC (test code=RBC) 4.02 10\S\6/uL 4.20-5.60 HGB (test code=HBG) 9.7 g/dL 14.0-18.0 HCT (test code=HCT) 32.2 % 35.0-46.0 MCV (test code=MCV) 80.1 fL 80.0-94.0 MCH (test code=MCH) 24.1 pg 27.0-31.0 MCHC (test code=MCHC) 30.1 g/dL 32.0-36.0 RDW (test code=RDW) 20.8 % 11.5-14.5 PLT (test code=PLT) 297 10\S\3/uL 130-400 MPV (test code=MPV) 8.8 fL 9.4-12.4 NEUTROP # (test code=NE#) 4.9 10\S\3/uL 2.0-8.0 LYMPH # (test code=LY#) 1.3 10\S\3/uL 1.2-4.0 MONOCYTE # (test code=MO#) 1.0 10\S\3/uL 0.0-1.1 EOSINOPH # (test code=EO#) 0.6 10\S\3/uL 0.0-0.7 BASOPHIL # (test code=BA#) 0.1 10\S\3/uL 0.0-0.3 IG # (test code=IG#) 0.13 10\S\3/uL 0.00-0.06 NRBC # (test code=NRBC#) 0.00 10\S\3/uL 0.00-0.01 NEUTROPH % (test code=NE%) 61.2 % 35.0-73.0 LYMPH % (test code=LY%) 16.6 % 20.0-55.0 MONO % (test code=MO%) 12.4 % 2.5-10.0 EOSINOPH % (test code=EO%) 7.3 % 0.0-5.0 BASOPHIL % (test code=BA%) 0.9 % 0.0-2.0 IG % (test code=IG%) 1.6 % 0.0-0.8 NRBC% (test code=NRBC%) 0.0 % 0.0-0.2 PLT EST (test code=PLTEST) ADEQUATE ADEQUATE PLT MORPH (test code=PLTMOR) NORMAL (1.5-3 um) NORMAL ANISO (test code=ANISO) 2+ NONE Previously reported as: 2+ On 12/16/2016 22:18 By [id number] MICROCYTIC (test code=MICRO) 2+ NONE Previously reported as: 2+ On 12/16/2016 22:18 By CR13 POLYCHROM (test code=POLY) 1+ NONE Previously reported as: 1+ On 12/16/2016 22:18 By CR13 DRUGS OF ABUSE *WW*2016-12-16 22:11:00* Test Item Value Reference Range Comments DRUG SCRN (test code=HDOA) URINE DRUG SCREEN This is an unconfirmed screening result and should not be used for non-medical purposes CANNABINOD (test code=88C) Negative NEGATIVE AMPHETAMINE (test code=84A) Negative NEGATIVE BENZODIAZP (test code=86A) Negative NEGATIVE BARBITURAT (test code=85A) Negative NEGATIVE OPIATES (test code=92B) Negative NEGATIVE COCAINE (test code=87A) Negative NEGATIVE PHENCYCLID (test code=66A) Negative NEGATIVE METHADONE (test code=64A) Negative NEGATIVE DOAH (test code=DOAH) URINE DRUG SCREEN Cut-off values are as follows: Cannabinoids 50 ng/mL Cocaine 300 ng/mL Amphetamines 1000 ng/mL Phencyclidine 25 ng/mL Benzodiazepines 200 ng.mL Methadone 300 ng/mL Barbiturates 200 ng/mL Opiates 2000 ng/mL AMMONIA BLOOD *WW*2016-12-16 22:09:00* Test Item Value Reference Range Comments AMMONIA (test code=54A) 35 umol/L 11-32 PRO TIME AND PTT *WW*2016-12-16 22:09:00* Test Item Value Reference Range Comments PT (test code=TT) 12.3 s 9.8-13.6 INR (test code=INR) 1.1 INRH (test code=INRH) SUGGESTED THERAPEUTIC RANGE FOR INR: 2.5 - 3.5 For Patients with Prosthetic Valves or Patients with recurrent Thromboembolic Events 2.0 - 3.0 For Most Other Applications PTT (test code=PTT) 22.9 s 20.2-38.0 PTTH (test code=PTTH) To monitor the effectiveness of heparin, we offer the Anti-Xa (Heparin Assay). It can be used for either unfractionated or LMW Heparin. Order Code is ANTI-XA LIVER PROFILE 2016-12-16 21:58:00* Test Item Value Reference Range Comments BILI TOTAL (test code=11A) 0.1 mg/dL 0.2-1.0 BILI DIRCT (test code=12A) <0.1 mg/dL 0.0-0.2 BILI INDIR (test code=BILII) 0.0 mg/dL <=0.8 PROTEIN (test code=07D) 7.0 g/dL 6.4-8.2 ALBUMIN (test code=08D) 2.9 g/dL 3.5-4.8 GLOBULIN (test code=GLB) 4.1 g/dL 1.5-3.8 ALB/GLOB (test code=AGRR) 0.7 1.0-2.6 ALK PHOS (test code=35A) 83 IU/L 42-121 AST (test code=30A) 22 IU/L <=42 ALT (test code=31A) 35 IU/L <=78 ACETAMINOPHEN 2016-12-16 21:58:00* Test Item Value Reference Range Comments ACETAMINPH (test code=94M) <2.0 ug/mL 10.0-30.0 URINALYSIS 2016-12-16 21:54:00* Test Item Value Reference Range Comments COLOR (test code=COLU) YELLOW YELLOW CLARITY (test code=CLA) CLEAR CLEAR GLUCOSE UR (test code=UA GLUCOSE) NEGATIVE NEGATIVE BILI UR (test code=BILE) NEGATIVE NEGATIVE KETONES UR (test code=CHELSEA) NEGATIVE NEGATIVE SP GRAVITY (test code=SPGR) 1.020 1.005-1.030 PH UR (test code=PH) 6.0 4.5-8.0 PROTEIN UR (test code=PU) NEGATIVE NEGATIVE UROBIL UR (test code=UROQ) 0.2 EU/dL 0.2-1.0 NITRITE UR (test code=NITRITE) NEGATIVE NEGATIVE BLOOD UR (test code=UA BLOOD) NEGATIVE NEGATIVE LEUK ES UR (test code=LEUK) NEGATIVE NEGATIVE AUAM (test code=WAUAM) NO NO ALCOHOL BLOOD (ETOH) 2016-12-16 21:54:00* Test Item Value Reference Range Comments ETOH (test code=HALC) ETHANOL The result is to be used only for medical purposes ALCOHOL (test code=56A) <10 mg/dL <=10 SALICYLATES WW2016-12-16 21:51:00* Test Item Value Reference Range Comments SALICYLATE (test code=94B) <1.7 mg/dL 2.8-20.0 AMYLASE AND LIPASE 2016-12-16 21:46:00* Test Item Value Reference Range Comments AMYLASE (test code=10A) 46 U/L 28-100 LIPASE (test code=60A) 152 IU/L 73-393 CARDIAC PROFILE 2016-12-16 21:41:00* Test Item Value Reference Range Comments TROPONIN I (test code=A84) <0.015 ng/mL 0.000-0.045 CKMB (test code=A49) 1.8 ng/mL <=3.6 CPK (test code=32A) 244 IU/L 39-308 BASIC METABOLIC PANEL *WW*2016-12-16 21:36:00* Test Item Value Reference Range Comments GLUCOSE (test code=06D) 131 mg/dL 75-100 SODIUM (test code=01A) 139 mmol/L 136-145 POTASSIUM (test code=01B) 3.9 mmol/L 3.6-5.1 CHLORIDE (test code=04A) 104 mmol/L 98-107 CO2 (test code=02A) 26 mmol/L 22-32 ANION GAP (test code=ANG) 12.9 mmol/L BUN (test code=05D) 15 mg/dL 7-18 CREATININE (test code=03E) 0.8 mg/dL 0.7-1.3 BUN/CREA (test code=BCR) 18 12-20 CALCIUM (test code=09D) 8.2 mg/dL 8.3-9.5 CK [id number] 03:38:00* Test Item Value Reference Range Comments CK (test code=CK) na U/L 39-308 CKMB (test code=CKMB) 3.9 ng/mL 0.0-4.9 CKMB% (test code=CKMBP) 0.0 % 0.0-3.4 CK [id number] 02:48:00* Test Item Value Reference Range Comments CK (test code=CK) 483 U/L 39-308 Troponin [id number] 02:48:00* Test Item Value Reference Range Comments Troponin T (test code=GISELL) <0.010 ng/mL 0.000-0.090 Basic Metabolic [id number] 02:48:00* Test Item Value Reference Range Comments Sodium (test code=NA) 139 mmol/L 135-145 Potassium (test code=K) 4.2 mmol/L 3.5-5.1 Chloride (test code=CL) 104 mmol/L 98-105 Carbon Dioxide (test code=CO2) 25 mmol/L 22-29 Glucose (test code=GLU) 123 mg/dL 70-115 Blood Urea Nitrogen (test code=BUN) 13 mg/dL 6-20 Creatinine (test code=CREAT) 0.9 mg/dL 0.7-1.2 Calcium (test code=CA) 8.9 mg/dL 8.3-10.5 BUN/Creatinine Ratio (test code=BCRATIO) 14.4 Anion Gap (test code=AGAP) 10 mmol/L 7-16 Estimated GFR (test code=GFR) >60 mL/min/1.73m2 eGFR (estimated Glomerular Filtration Rate) is an estimated value,calculated from the patient's serum creatinine using the MDRD equation.It is NOT the patient's actual GFR. The eGFR provides a more clinicallyuseful measure of kidney disease than serum creatinine alone.This calculation takes sex and race into account, if the informationis provided. If the race is not provided, and the patient isAfrican-Faroese, multiply by 1.212. If sex is not provided, and thepatient is female, multiply by 0.742. Results for patients <18 years ofage have not been validated by the MDRD study and should be interpretedwith caution.eGFR Result Interpretation:eGFR > or=60 is in the Normal RangeeGFR < 60 may mean kidney diseaseeGFR < 15 may mean kidney failureRanges recommended by the National Kidney Foundat ion,http://nkdep.nih.gov CBC with [id number] 02:32:00* Test Item Value Reference Range Comments WBC (test code=WBC) 8.1 K/cumm 4.4-10.5 RBC (test code=RBC) 4.14 M/cumm 4.10-5.70 Hemoglobin (test code=HGB) 10.0 gm/dL 13.4-17.4 Hematocrit (test code=HCT) 33.5 % 38.7-52.0 MCV (test code=MCV) 81.0 fL 80-100 MCH (test code=MCH) 24.2 pg 27.0-32.5 MCHC (test code=MCHC) 29.8 g/dL 32.0-37.5 RDW (test code=RDW) 18.8 % 11.5-14.5 Platelet Count (test code=PLTCT) 313 K/cumm 140-440 MPV (test code=MPV) 6.3 fL Diff Method (test code=DIFFM) Auto Neutrophil (test code=NEUT) 72.1 % 36-70 Lymphocyte (test code=LYMPH) 16.0 % 12-44 Monocyte (test code=MONO) 5.5 % 0-11 Eosinophil (test code=EOS) 6.1 % 0-7 Basophil (test code=BASO) 0.2 % 0-2 Neutro Abs (test code=ANEUT) 5.9 K/cumm 1.6-7.4 Lymph Abs (test code=ALYMPH) 1.3 K/cumm 0.5-4.6 [place] Abs (test code=AMONO) 0.5 K/cumm 0.0-1.2 Eos Abs (test code=AEOS) 0.49 K/cumm 0.00-0.74 Baso Abs (test code=ABASO) 0.0 K/cumm 0.00-0.21 Anisocytosis (test code=ANISO) Slight Microcytosis (test code=MICRO) Slight Hypochromic (test code=HYPO) Moderate XR CHEST 1 [id number] 01:28:22AFTER HOURS SERVICE ON: 12/15/2016 1:28 AMAP Portable ChestLocation Code [id number]: Chest painFINDINGS: There are no infiltrates. There are no pleural effusions. There is nopneumothorax. Cardiac silhouette and mediastinum appear within normallimits. IMPRESSION: No active intrathoracic findings.CBC WITH MORPHOLOGY *WW*2016-12-12 12:56:00* Test Item Value Reference Range Comments WBC (test code=WBC) 8.4 10\S\3/uL 4.5-11.0 RBC (test code=RBC) 4.48 10\S\6/uL 4.20-5.60 HGB (test code=HBG) 10.6 g/dL 14.0-18.0 HCT (test code=HCT) 34.9 % 35.0-46.0 MCV (test code=MCV) 77.9 fL 80.0-94.0 MCH (test code=MCH) 23.7 pg 27.0-31.0 MCHC (test code=MCHC) 30.4 g/dL 32.0-36.0 RDW (test code=RDW) 21.0 % 11.5-14.5 PLT (test code=PLT) 289 10\S\3/uL 130-400 MPV (test code=MPV) 8.6 fL 9.4-12.4 NEUTROP # (test code=NE#) 6.6 10\S\3/uL 2.0-8.0 LYMPH # (test code=LY#) 0.9 10\S\3/uL 1.2-4.0 MONOCYTE # (test code=MO#) 0.6 10\S\3/uL 0.0-1.1 EOSINOPH # (test code=EO#) 0.3 10\S\3/uL 0.0-0.7 BASOPHIL # (test code=BA#) 0.0 10\S\3/uL 0.0-0.3 IG # (test code=IG#) 0.03 10\S\3/uL 0.00-0.06 NRBC # (test code=NRBC#) 0.00 10\S\3/uL 0.00-0.01 NEUTROPH % (test code=NE%) 78.3 % 35.0-73.0 LYMPH % (test code=LY%) 10.3 % 20.0-55.0 MONO % (test code=MO%) 7.3 % 2.5-10.0 EOSINOPH % (test code=EO%) 3.3 % 0.0-5.0 BASOPHIL % (test code=BA%) 0.4 % 0.0-2.0 IG % (test code=IG%) 0.4 % 0.0-0.8 NRBC% (test code=NRBC%) 0.0 % 0.0-0.2 PLT EST (test code=PLTEST) ADEQUATE ADEQUATE PLT MORPH (test code=PLTMOR) NORMAL (1.5-3 um) NORMAL ANISO (test code=ANISO) 2+ NONE POIK (test code=POIK) 1+ NONE HYPOCHROM (test code=HYPOC) 1+ NONE MICROCYTIC (test code=MICRO) 1+ NONE MACRO (test code=MACRO) 1+ NONE POLYCHROM (test code=POLY) 1+ NONE STOMATO (test code=STOM) 1+ NONE URINALYSIS WITH MICRO *WW*2016-12-12 12:28:00* Test Item Value Reference Range Comments COLOR (test code=COLU) YELLOW YELLOW CLARITY (test code=CLA) CLEAR CLEAR GLUCOSE UR (test code=UA GLUCOSE) NEGATIVE NEGATIVE BILI UR (test code=BILE) NEGATIVE NEGATIVE KETONES UR (test code=CHELSEA) TRACE NEGATIVE SP GRAVITY (test code=SPGR) 1.015 1.005-1.030 PH UR (test code=PH) 7.5 4.5-8.0 PROTEIN UR (test code=PU) TRACE NEGATIVE UROBIL UR (test code=UROQ) 1.0 EU/dL 0.2-1.0 NITRITE UR (test code=NITRITE) NEGATIVE NEGATIVE BLOOD UR (test code=UA BLOOD) NEGATIVE NEGATIVE LEUK ES UR (test code=LEUK) NEGATIVE NEGATIVE WBC UR (test code=UWBC) 1 /HPF 0-3 RBC UR (test code=URBC) 1 /HPF 0-2 EPITH UR (test code=UEPC) NONE /LPF NONE BACTERIA UR (test code=UBACT) NONE /HPF NONE CAST UR (test code=CAST) /LPF NONE CRYSTAL UR (test code=CRYU) / LPF NONE MUCUS UR (test code=MUC) / HPF NONE AMORPH UR (test code=SRINI) / HPF NONE TRICH UR (test code=UTRICH) /HPF NONE YEAST UR (test code=UY) /HPF NONE SPERM UR (test code=USPERM) /HPF NONE AMYLASE AND LIPASE 2016-12-12 12:27:00* Test Item Value Reference Range Comments AMYLASE (test code=10A) 41 U/L 28-100 LIPASE (test code=60A) 97 IU/L 73-393 COMPREHENSIVE METABOLIC TERRELL 2016-12-12 12:27:00* Test Item Value Reference Range Comments GLUCOSE (test code=06D) 128 mg/dL 75-100 SODIUM (test code=01A) 138 mmol/L 136-145 POTASSIUM (test code=01B) 4.1 mmol/L 3.6-5.1 CHLORIDE (test code=04A) 103 mmol/L 98-107 CO2 (test code=02A) 29 mmol/L 22-32 ANION GAP (test code=ANG) 10.1 mmol/L BUN (test code=05D) 19 mg/dL 7-18 CREATININE (test code=03E) 0.9 mg/dL 0.7-1.3 BUN/CREA (test code=BCR) 21 12-20 CALCIUM (test code=09D) 8.6 mg/dL 8.3-9.5 BILI TOTAL (test code=11A) 0.3 mg/dL 0.2-1.0 PROTEIN (test code=07D) 7.8 g/dL 6.4-8.2 ALBUMIN (test code=08D) 3.1 g/dL 3.5-4.8 GLOBULIN (test code=GLB) 4.7 g/dL 1.5-3.8 ALB/GLOB (test code=AGRR) 0.7 1.0-2.6 ALK PHOS (test code=35A) 95 IU/L 42-121 AST (test code=30A) 62 IU/L <=42 ALT (test code=31A) 57 IU/L <=78 CARDIAC PROFILE 2016-12-12 12:17:00* Test Item Value Reference Range Comments TROPONIN I (test code=A84) <0.015 ng/mL 0.000-0.045 CKMB (test code=A49) 1.9 ng/mL <=3.6 CPK (test code=32A) 300 IU/L 39-308 PRO TIME AND PTT 2016-12-12 12:15:00* Test Item Value Reference Range Comments PT (test code=TT) 12.8 s 9.8-13.6 INR (test code=INR) 1.2 INRH (test code=INRH) SUGGESTED THERAPEUTIC RANGE FOR INR: 2.5 - 3.5 For Patients with Prosthetic Valves or Patients with recurrent Thromboembolic Events 2.0 - 3.0 For Most Other Applications PTT (test code=PTT) 27.9 s 20.2-38.0 PTTH (test code=PTTH) To monitor the effectiveness of heparin, we offer the Anti-Xa (Heparin Assay). It can be used for either unfractionated or LMW Heparin. Order Code is ANTI-XA CBC (INCLUDES AUTOMATED DIFFERENTIAL)*[id number] 12:02:00* Test Item Value Reference Range Comments WBC (test code=WBC) 8.4 10\S\3/uL 4.5-11.0 RBC (test code=RBC) 4.48 10\S\6/uL 4.20-5.60 HGB (test code=HBG) 10.6 g/dL 14.0-18.0 HCT (test code=HCT) 34.9 % 35.0-46.0 MCV (test code=MCV) 77.9 fL 80.0-94.0 MCH (test code=MCH) 23.7 pg 27.0-31.0 MCHC (test code=MCHC) 30.4 g/dL 32.0-36.0 RDW (test code=RDW) 21.0 % 11.5-14.5 PLT (test code=PLT) 289 10\S\3/uL 130-400 MPV (test code=MPV) 8.6 fL 9.4-12.4 NEUTROP # (test code=NE#) 6.6 10\S\3/uL 2.0-8.0 LYMPH # (test code=LY#) 0.9 10\S\3/uL 1.2-4.0 MONOCYTE # (test code=MO#) 0.6 10\S\3/uL 0.0-1.1 EOSINOPH # (test code=EO#) 0.3 10\S\3/uL 0.0-0.7 BASOPHIL # (test code=BA#) 0.0 10\S\3/uL 0.0-0.3 IG # (test code=IG#) 0.03 10\S\3/uL 0.00-0.06 NRBC # (test code=NRBC#) 0.00 10\S\3/uL 0.00-0.01 NEUTROPH % (test code=NE%) 78.3 % 35.0-73.0 LYMPH % (test code=LY%) 10.3 % 20.0-55.0 MONO % (test code=MO%) 7.3 % 2.5-10.0 EOSINOPH % (test code=EO%) 3.3 % 0.0-5.0 BASOPHIL % (test code=BA%) 0.4 % 0.0-2.0 IG % (test code=IG%) 0.4 % 0.0-0.8 NRBC% (test code=NRBC%) 0.0 % 0.0-0.2 MANDIFF (test code=WMDIFF) NO NO RBC MORPH (test code=WRBCMOR) ABNORMAL NORMAL Previously reported as: (blank) On 12/12/2016 12:02 By aa9 CBC WITH [id number] 07:07:00* Test Item Value Reference Range Comments WBC (test code=WBC) 7.4 10\S\3/uL 4.5-11.0 RBC (test code=RBC) 4.22 10\S\6/uL 4.20-5.60 HGB (test code=HBG) 9.9 g/dL 14.0-18.0 HCT (test code=HCT) 32.6 % 35.0-46.0 MCV (test code=MCV) 77.3 fL 80.0-94.0 MCH (test code=MCH) 23.5 pg 27.0-31.0 MCHC (test code=MCHC) 30.4 g/dL 32.0-36.0 RDW (test code=RDW) 21.3 % 11.5-14.5 PLT (test code=PLT) 292 10\S\3/uL 130-400 MPV (test code=MPV) 9.2 fL 9.4-12.4 NEUTROP # (test code=NE#) 4.8 10\S\3/uL 2.0-8.0 LYMPH # (test code=LY#) 1.6 10\S\3/uL 1.2-4.0 MONOCYTE # (test code=MO#) 0.8 10\S\3/uL 0.0-1.1 EOSINOPH # (test code=EO#) 0.2 10\S\3/uL 0.0-0.7 BASOPHIL # (test code=BA#) 0.0 10\S\3/uL 0.0-0.3 IG # (test code=IG#) 0.03 10\S\3/uL 0.00-0.06 NRBC # (test code=NRBC#) 0.00 10\S\3/uL 0.00-0.01 NEUTROPH % (test code=NE%) 64.2 % 35.0-73.0 LYMPH % (test code=LY%) 21.5 % 20.0-55.0 MONO % (test code=MO%) 10.6 % 2.5-10.0 EOSINOPH % (test code=EO%) 2.8 % 0.0-5.0 BASOPHIL % (test code=BA%) 0.5 % 0.0-2.0 IG % (test code=IG%) 0.4 % 0.0-0.8 NRBC% (test code=NRBC%) 0.0 % 0.0-0.2 PLT EST (test code=PLTEST) ADEQUATE ADEQUATE PLT MORPH (test code=PLTMOR) NORMAL (1.5-3 um) NORMAL CARDIAC [id number] 06:08:00* Test Item Value Reference Range Comments TROPONIN I (test code=A84) <0.015 ng/mL 0.000-0.045 CKMB (test code=A49) 2.0 ng/mL <=3.6 CPK (test code=32A) 326 IU/L 39-308 BASIC METABOLIC [id number] 05:57:00* Test Item Value Reference Range Comments GLUCOSE (test code=06D) 195 mg/dL 75-100 SODIUM (test code=01A) 138 mmol/L 136-145 POTASSIUM (test code=01B) 3.7 mmol/L 3.6-5.1 CHLORIDE (test code=04A) 104 mmol/L 98-107 CO2 (test code=02A) 24 mmol/L 22-32 ANION GAP (test code=ANG) 13.7 mmol/L BUN (test code=05D) 18 mg/dL 7-18 CREATININE (test code=03E) 0.8 mg/dL 0.7-1.3 BUN/CREA (test code=BCR) 21 12-20 CALCIUM (test code=09D) 8.5 mg/dL 8.3-9.5 COMPREHENSIVE METABOLIC [id number] 22:58:00* Test Item Value Reference Range Comments GLUCOSE (test code=06D) 146 mg/dL 75-100 SODIUM (test code=01A) 139 mmol/L 136-145 POTASSIUM (test code=01B) 3.9 mmol/L 3.6-5.1 CHLORIDE (test code=04A) 107 mmol/L 98-107 CO2 (test code=02A) 24 mmol/L 22-32 ANION GAP (test code=ANG) 11.9 mmol/L BUN (test code=05D) 19 mg/dL 7-18 CREATININE (test code=03E) 0.9 mg/dL 0.7-1.3 BUN/CREA (test code=BCR) 21 12-20 CALCIUM (test code=09D) 8.3 mg/dL 8.3-9.5 BILI TOTAL (test code=11A) 0.2 mg/dL 0.2-1.0 PROTEIN (test code=07D) 7.0 g/dL 6.4-8.2 ALBUMIN (test code=08D) 3.1 g/dL 3.5-4.8 GLOBULIN (test code=GLB) 3.9 g/dL 1.5-3.8 ALB/GLOB (test code=AGRR) 0.8 1.0-2.6 ALK PHOS (test code=35A) 79 IU/L 42-121 AST (test code=30A) 17 IU/L <=42 ALT (test code=31A) 20 IU/L <=78 CBC WITH [id number] 22:55:00* Test Item Value Reference Range Comments WBC (test code=WBC) 8.2 10\S\3/uL 4.5-11.0 RBC (test code=RBC) 4.30 10\S\6/uL 4.20-5.60 HGB (test code=HBG) 10.0 g/dL 14.0-18.0 HCT (test code=HCT) 32.5 % 35.0-46.0 MCV (test code=MCV) 75.6 fL 80.0-94.0 MCH (test code=MCH) 23.3 pg 27.0-31.0 MCHC (test code=MCHC) 30.8 g/dL 32.0-36.0 RDW (test code=RDW) 21.5 % 11.5-14.5 PLT (test code=PLT) 285 10\S\3/uL 130-400 MPV (test code=MPV) 8.8 fL 9.4-12.4 NEUTROP # (test code=NE#) 5.6 10\S\3/uL 2.0-8.0 LYMPH # (test code=LY#) 1.5 10\S\3/uL 1.2-4.0 MONOCYTE # (test code=MO#) 0.9 10\S\3/uL 0.0-1.1 EOSINOPH # (test code=EO#) 0.2 10\S\3/uL 0.0-0.7 BASOPHIL # (test code=BA#) 0.0 10\S\3/uL 0.0-0.3 IG # (test code=IG#) 0.01 10\S\3/uL 0.00-0.06 NRBC # (test code=NRBC#) 0.00 10\S\3/uL 0.00-0.01 NEUTROPH % (test code=NE%) 68.8 % 35.0-73.0 LYMPH % (test code=LY%) 18.0 % 20.0-55.0 MONO % (test code=MO%) 10.7 % 2.5-10.0 EOSINOPH % (test code=EO%) 2.0 % 0.0-5.0 BASOPHIL % (test code=BA%) 0.4 % 0.0-2.0 IG % (test code=IG%) 0.1 % 0.0-0.8 NRBC% (test code=NRBC%) 0.0 % 0.0-0.2 PLT EST (test code=PLTEST) ADEQUATE ADEQUATE PLT MORPH (test code=PLTMOR) NORMAL (1.5-3 um) NORMAL CARDIAC [id number] 22:54:00* Test Item Value Reference Range Comments TROPONIN I (test code=A84) <0.015 ng/mL 0.000-0.045 CKMB (test code=A49) 1.8 ng/mL <=3.6 CPK (test code=32A) 313 IU/L 39-308 [id number] 22:49:00* Test Item Value Reference Range Comments D-DIMER (test code=DDI) 304 ng/mL D-DU 0-234 D-DIMER COMMENT (test code=DDCOM) *Level to rule out DVT or PE: <235 ng/mL D-DU* URINALYSIS WITH [id number] 22:44:00* Test Item Value Reference Range Comments COLOR (test code=COLU) YELLOW YELLOW CLARITY (test code=CLA) CLEAR CLEAR GLUCOSE UR (test code=UA GLUCOSE) NEGATIVE NEGATIVE BILI UR (test code=BILE) NEGATIVE NEGATIVE KETONES UR (test code=CHELSEA) NEGATIVE NEGATIVE SP GRAVITY (test code=SPGR) 1.029 1.005-1.030 PH UR (test code=PH) 6.0 4.5-8.0 PROTEIN UR (test code=PU) TRACE NEGATIVE UROBIL UR (test code=UROQ) 0.2 EU/dL 0.2-1.0 NITRITE UR (test code=NITRITE) NEGATIVE NEGATIVE BLOOD UR (test code=UA BLOOD) NEGATIVE NEGATIVE LEUK ES UR (test code=LEUK) NEGATIVE NEGATIVE WBC UR (test code=UWBC) 0 /HPF 0-3 RBC UR (test code=URBC) 0 /HPF 0-2 EPITH UR (test code=UEPC) FEW /LPF NONE BACTERIA UR (test code=UBACT) FEW /HPF NONE CAST UR (test code=CAST) /LPF NONE CRYSTAL UR (test code=CRYU) / LPF NONE MUCUS UR (test code=MUC) FEW / HPF NONE AMORPH UR (test code=SRINI) / HPF NONE TRICH UR (test code=UTRICH) /HPF NONE YEAST UR (test code=UY) /HPF NONE SPERM UR (test code=USPERM) /HPF NONE XR CHEST 1 VIEW [id number] 22:17:28LOCATION CODE: A1.HISTORY: Cp/[id number]: 12/02/16FINDINGS: Considering the patient's body habitus and depth of inspiration The cardiomediastinal silhouette and pulmonary vasculature are normal. No evidence of consolidation, effusion, or pneumothorax is present.Osseous structures are unremarkable.IMPRESSION: 1. No active cardiopulmonary disease.XR CHEST 1 VIEW [id number] 01:14:18LOCATION: [id number]: 56-year-old male who presents with suicidal ideation.COMMENT: After- hours service at 1:13 a.m.A frontal chest radiograph was obtained at the bedside at 12:50 a.m. and iscompared to a prior study of 11/10/16.The lungs are clear. The cardiac silhouette, thong, and mediastinum areunremarkable. The skeleton and soft tissues are unremarkable.IMPRESSION:There is no radiographic evidence of acute cardiopulmonary disease orsignificant interval change.BRAIN NATRIURETIC [id number] 01:14:00* Test Item Value Reference Range Comments proBNP (test code=PBNP) 18 pg/mL 0-125 CBC WITH [id number] 01:12:00* Test Item Value Reference Range Comments WBC (test code=WBC) 7.9 10\S\3/uL 4.5-11.0 RBC (test code=RBC) 4.45 10\S\6/uL 4.20-5.60 HGB (test code=HBG) 10.4 g/dL 14.0-18.0 HCT (test code=HCT) 34.4 % 35.0-46.0 MCV (test code=MCV) 77.3 fL 80.0-94.0 MCH (test code=MCH) 23.4 pg 27.0-31.0 MCHC (test code=MCHC) 30.2 g/dL 32.0-36.0 RDW (test code=RDW) 22.0 % 11.5-14.5 PLT (test code=PLT) 297 10\S\3/uL 130-400 MPV (test code=MPV) 8.6 fL 9.4-12.4 NEUTROP # (test code=NE#) 5.7 10\S\3/uL 2.0-8.0 LYMPH # (test code=LY#) 1.1 10\S\3/uL 1.2-4.0 MONOCYTE # (test code=MO#) 0.7 10\S\3/uL 0.0-1.1 EOSINOPH # (test code=EO#) 0.4 10\S\3/uL 0.0-0.7 BASOPHIL # (test code=BA#) 0.0 10\S\3/uL 0.0-0.3 IG # (test code=IG#) 0.03 10\S\3/uL 0.00-0.06 NRBC # (test code=NRBC#) 0.00 10\S\3/uL 0.00-0.01 NEUTROPH % (test code=NE%) 72.2 % 35.0-73.0 LYMPH % (test code=LY%) 13.5 % 20.0-55.0 MONO % (test code=MO%) 8.6 % 2.5-10.0 EOSINOPH % (test code=EO%) 4.8 % 0.0-5.0 BASOPHIL % (test code=BA%) 0.5 % 0.0-2.0 IG % (test code=IG%) 0.4 % 0.0-0.8 NRBC% (test code=NRBC%) 0.0 % 0.0-0.2 PLT EST (test code=PLTEST) ADEQUATE ADEQUATE PLT MORPH (test code=PLTMOR) NORMAL (1.5-3 um) NORMAL ANISO (test code=ANISO) 1+ NONE HYPOCHROM (test code=HYPOC) 1+ NONE MICROCYTIC (test code=MICRO) 1+ NONE POLYCHROM (test code=POLY) 1+ NONE URINALYSIS WITH [id number] 01:10:00* Test Item Value Reference Range Comments COLOR (test code=COLU) DK YELLOW YELLOW CLARITY (test code=CLA) CLEAR CLEAR GLUCOSE UR (test code=UA GLUCOSE) NEGATIVE NEGATIVE BILI UR (test code=BILE) 1+ NEGATIVE KETONES UR (test code=CHELSEA) TRACE NEGATIVE SP GRAVITY (test code=SPGR) 1.036 1.005-1.030 PH UR (test code=PH) 5.5 4.5-8.0 PROTEIN UR (test code=PU) 1+ NEGATIVE UROBIL UR (test code=UROQ) 1.0 EU/dL 0.2-1.0 NITRITE UR (test code=NITRITE) NEGATIVE NEGATIVE BLOOD UR (test code=UA BLOOD) NEGATIVE NEGATIVE LEUK ES UR (test code=LEUK) NEGATIVE NEGATIVE WBC UR (test code=UWBC) 0 /HPF 0-3 RBC UR (test code=URBC) 1 /HPF 0-2 EPITH UR (test code=UEPC) FEW /LPF NONE BACTERIA UR (test code=UBACT) FEW /HPF NONE CAST UR (test code=CAST) /LPF NONE CRYSTAL UR (test code=CRYU) / LPF NONE MUCUS UR (test code=MUC) FEW / HPF NONE AMORPH UR (test code=SRINI) FEW / HPF NONE TRICH UR (test code=UTRICH) /HPF NONE YEAST UR (test code=UY) /HPF NONE SPERM UR (test code=USPERM) /HPF NONE CARDIAC [id number] 01:09:00* Test Item Value Reference Range Comments TROPONIN I (test code=A84) 0.022 ng/mL 0.000-0.045 CKMB (test code=A49) 1.6 ng/mL <=3.6 CPK (test code=32A) 254 IU/L 39-308 [id number] 00:58:00* Test Item Value Reference Range Comments ACETAMINPH (test code=94M) <2.0 ug/mL 10.0-30.0 COMPREHENSIVE METABOLIC [id number] 00:56:00* Test Item Value Reference Range Comments GLUCOSE (test code=06D) 112 mg/dL 75-100 SODIUM (test code=01A) 140 mmol/L 136-145 POTASSIUM (test code=01B) 3.5 mmol/L 3.6-5.1 CHLORIDE (test code=04A) 108 mmol/L 98-107 CO2 (test code=02A) 24 mmol/L 22-32 ANION GAP (test code=ANG) 11.5 mmol/L BUN (test code=05D) 13 mg/dL 7-18 CREATININE (test code=03E) 0.9 mg/dL 0.7-1.3 BUN/CREA (test code=BCR) 15 12-20 CALCIUM (test code=09D) 8.5 mg/dL 8.3-9.5 BILI TOTAL (test code=11A) 0.1 mg/dL 0.2-1.0 PROTEIN (test code=07D) 7.7 g/dL 6.4-8.2 ALBUMIN (test code=08D) 3.1 g/dL 3.5-4.8 GLOBULIN (test code=GLB) 4.6 g/dL 1.5-3.8 ALB/GLOB (test code=AGRR) 0.7 1.0-2.6 ALK PHOS (test code=35A) 92 IU/L 42-121 AST (test code=30A) 19 IU/L <=42 ALT (test code=31A) 26 IU/L <=78 ALCOHOL BLOOD (ETOH)2016-12-02 00:52:00* Test Item Value Reference Range Comments ALCOHOL (test code=56A) <10 mg/dL <=10 Ref Range Change (test code=REF RANGE) Please note the change in reference range [id number] 00:49:00* Test Item Value Reference Range Comments SALICYLATE (test code=94B) <1.7 mg/dL 2.8-20.0 DRUGS OF [id number] 00:48:00* Test Item Value Reference Range Comments DRUG SCRN (test code=HDOA) URINE DRUG SCREEN This is an unconfirmed screening result and should not be used for non-medical purposes CANNABINOD (test code=88C) Negative NEGATIVE AMPHETAMINE (test code=84A) Negative NEGATIVE BENZODIAZP (test code=86A) Negative NEGATIVE BARBITURAT (test code=85A) Negative NEGATIVE OPIATES (test code=92B) Negative NEGATIVE COCAINE (test code=87A) Negative NEGATIVE PHENCYCLID (test code=66A) Negative NEGATIVE METHADONE (test code=64A) Negative NEGATIVE DOAH (test code=DOAH) URINE DRUG SCREEN Cut-off values are as follows: Cannabinoids 50 ng/mL Cocaine 300 ng/mL Amphetamines 1000 ng/mL Phencyclidine 25 ng/mL Benzodiazepines 200 ng.mL Methadone 300 ng/mL Barbiturates 200 ng/mL Opiates 2000 ng/mL D-DIMER *WW*2016-11-10 10:19:00* Test Item Value Reference Range Comments D-DIMER (test code=DDI) <200 ng/mL D-DU 0-234 D-DIMER COMMENT (test code=DDCOM) *Level to rule out DVT or PE: <235 ng/mL D-DU* XR SPINE CERVICAL COMPLETE2016-11-10 09:40:15Cervical spine, 7 viewsLocation code: [id number] history: Neck painComments: AP, oblique, open mouth odontoid and lateral views of the cervicalspine demonstrate no displaced fracture or malalignment. The intervertebraldisc spaces are maintained. The oblique projections demonstrate no significantforaminal narrowing. The soft tissues are unremarkable. Impression: No acute abnormality.CARDIAC PROFILE *WW*2016-11-10 09:27:00* Test Item Value Reference Range Comments TROPONIN I (test code=A84) <0.015 ng/mL 0.000-0.045 CKMB (test code=A49) 1.7 ng/mL <=3.6 CPK (test code=32A) 218 IU/L 39-308 CBC WITH [id number] 02:56:00* Test Item Value Reference Range Comments WBC (test code=WBC) 7.3 10\S\3/uL 4.5-11.0 RBC (test code=RBC) 4.47 10\S\6/uL 4.20-5.60 HGB (test code=HBG) 10.3 g/dL 14.0-18.0 HCT (test code=HCT) 33.9 % 35.0-46.0 MCV (test code=MCV) 75.8 fL 80.0-94.0 MCH (test code=MCH) 23.0 pg 27.0-31.0 MCHC (test code=MCHC) 30.4 g/dL 32.0-36.0 RDW (test code=RDW) 21.1 % 11.5-14.5 PLT (test code=PLT) 303 10\S\3/uL 130-400 MPV (test code=MPV) 9.2 fL 9.4-12.4 NEUTROP # (test code=NE#) 4.6 10\S\3/uL 2.0-8.0 LYMPH # (test code=LY#) 1.4 10\S\3/uL 1.2-4.0 MONOCYTE # (test code=MO#) 0.9 10\S\3/uL 0.0-1.1 EOSINOPH # (test code=EO#) 0.4 10\S\3/uL 0.0-0.7 BASOPHIL # (test code=BA#) 0.0 10\S\3/uL 0.0-0.3 IG # (test code=IG#) 0.02 10\S\3/uL 0.00-0.06 NRBC # (test code=NRBC#) 0.00 10\S\3/uL 0.00-0.01 NEUTROPH % (test code=NE%) 62.8 % 35.0-73.0 LYMPH % (test code=LY%) 19.5 % 20.0-55.0 MONO % (test code=MO%) 11.8 % 2.5-10.0 EOSINOPH % (test code=EO%) 5.0 % 0.0-5.0 BASOPHIL % (test code=BA%) 0.6 % 0.0-2.0 IG % (test code=IG%) 0.3 % 0.0-0.8 NRBC% (test code=NRBC%) 0.0 % 0.0-0.2 PLT EST (test code=PLTEST) ADEQUATE ADEQUATE PLT MORPH (test code=PLTMOR) NORMAL (1.5-3 um) NORMAL ANISO (test code=ANISO) 1+ NONE CARDIAC [id number] 02:49:00* Test Item Value Reference Range Comments TROPONIN I (test code=A84) <0.015 ng/mL 0.000-0.045 CKMB (test code=A49) 1.5 ng/mL <=3.6 CPK (test code=32A) 201 IU/L 39-308 COMPREHENSIVE METABOLIC [id number] 02:48:00* Test Item Value Reference Range Comments GLUCOSE (test code=06D) 195 mg/dL 75-100 SODIUM (test code=01A) 141 mmol/L 136-145 POTASSIUM (test code=01B) 3.9 mmol/L 3.6-5.1 CHLORIDE (test code=04A) 108 mmol/L 98-107 CO2 (test code=02A) 23 mmol/L 22-32 ANION GAP (test code=ANG) 13.9 mmol/L BUN (test code=05D) 15 mg/dL 7-18 CREATININE (test code=03E) 0.9 mg/dL 0.7-1.3 BUN/CREA (test code=BCR) 18 12-20 CALCIUM (test code=09D) 8.3 mg/dL 8.3-9.5 BILI TOTAL (test code=11A) 0.3 mg/dL 0.2-1.0 PROTEIN (test code=07D) 7.0 g/dL 6.4-8.2 ALBUMIN (test code=08D) 3.2 g/dL 3.5-4.8 GLOBULIN (test code=GLB) 3.8 g/dL 1.5-3.8 ALB/GLOB (test code=AGRR) 0.8 1.0-2.6 ALK PHOS (test code=35A) 102 IU/L 42-121 AST (test code=30A) 43 IU/L <=42 ALT (test code=31A) 44 IU/L <=78 PRO TIME AND [id number] 02:40:00* Test Item Value Reference Range Comments PT (test code=TT) 11.1 s 9.8-13.6 INR (test code=INR) 1.0 INRH (test code=INRH) SUGGESTED THERAPEUTIC RANGE FOR INR: 2.5 - 3.5 For Patients with Prosthetic Valves or Patients with recurrent Thromboembolic Events 2.0 - 3.0 For Most Other Applications PTT (test code=PTT) 26.1 s 20.2-38.0 PTTH (test code=PTTH) To monitor the effectiveness of heparin, we offer the Anti-Xa (Heparin Assay). It can be used for either unfractionated or LMW Heparin. Order Code is ANTI-XA XR CHEST 1 VIEW [id number] 02:30:36CHEST RADIOGRAPH: After hours services performed at 0159 hours.LOCATION: [id number]: CHEST PAIN.COMPARISON: 11/06/16.TECHNIQUE: AP radiograph of the chest.FINDINGS:No focal airspace consolidation or pneumothorax is visualized. Thecardiomediastinal silhouette is normal.IMPRESSION:No acute abnormality in the chest.BASIC METABOLIC PANEL *WW* 2016-11-07 07:05:00* Test Item Value Reference Range Comments GLUCOSE (test code=06D) 98 mg/dL 75-100 SODIUM (test code=01A) 139 mmol/L 136-145 POTASSIUM (test code=01B) 4.1 mmol/L 3.6-5.1 CHLORIDE (test code=04A) 105 mmol/L 98-107 CO2 (test code=02A) 27 mmol/L 22-32 ANION GAP (test code=ANG) 11.1 mmol/L BUN (test code=05D) 14 mg/dL 7-18 CREATININE (test code=03E) 0.8 mg/dL 0.7-1.3 BUN/CREA (test code=BCR) 18 12-20 CALCIUM (test code=09D) 8.3 mg/dL 8.3-9.5 CBC (INCLUDES AUTOMATED DIFFERENTIAL)*[id number] 06:32:00* Test Item Value Reference Range Comments WBC (test code=WBC) 6.2 10\S\3/uL 4.5-11.0 RBC (test code=RBC) 4.41 10\S\6/uL 4.20-5.60 HGB (test code=HBG) 10.1 g/dL 14.0-18.0 HCT (test code=HCT) 33.7 % 35.0-46.0 MCV (test code=MCV) 76.4 fL 80.0-94.0 MCH (test code=MCH) 22.9 pg 27.0-31.0 MCHC (test code=MCHC) 30.0 g/dL 32.0-36.0 RDW (test code=RDW) 20.2 % 11.5-14.5 PLT (test code=PLT) 287 10\S\3/uL 130-400 MPV (test code=MPV) 9.0 fL 9.4-12.4 NEUTROP # (test code=NE#) 3.8 10\S\3/uL 2.0-8.0 LYMPH # (test code=LY#) 1.3 10\S\3/uL 1.2-4.0 MONOCYTE # (test code=MO#) 0.5 10\S\3/uL 0.0-1.1 EOSINOPH # (test code=EO#) 0.5 10\S\3/uL 0.0-0.7 BASOPHIL # (test code=BA#) 0.0 10\S\3/uL 0.0-0.3 IG # (test code=IG#) 0.02 10\S\3/uL 0.00-0.06 NRBC # (test code=NRBC#) 0.00 10\S\3/uL 0.00-0.01 NEUTROPH % (test code=NE%) 62.2 % 35.0-73.0 LYMPH % (test code=LY%) 20.7 % 20.0-55.0 MONO % (test code=MO%) 8.1 % 2.5-10.0 EOSINOPH % (test code=EO%) 8.1 % 0.0-5.0 BASOPHIL % (test code=BA%) 0.6 % 0.0-2.0 IG % (test code=IG%) 0.3 % 0.0-0.8 NRBC% (test code=NRBC%) 0.0 % 0.0-0.2 MANDIFF (test code=WMDIFF) NO NO RBC MORPH (test code=WRBCMOR) NORMAL CARDIAC PROFILE 2016-11-06 16:58:00* Test Item Value Reference Range Comments TROPONIN I (test code=A84) 0.028 ng/mL 0.000-0.045 CKMB (test code=A49) 1.8 ng/mL <=3.6 CPK (test code=32A) 183 IU/L 39-308 B12 VITAMIN *WW*2016-11-06 10:23:00* Test Item Value Reference Range Comments VIT B12 (test code=A60) 206.0 pg/mL 180.0-914.0 IRON SERUM WW2016-11-06 10:23:00* Test Item Value Reference Range Comments IRON (test code=46B) 13 ug/dL 65-175 FOLATE *WW*2016-11-06 10:17:00* Test Item Value Reference Range Comments FOLATE (test code=A75) 5.9 ng/mL 3.1-17.5 CARDIAC PROFILE 2016-11-06 06:40:00* Test Item Value Reference Range Comments TROPONIN I (test code=A84) 0.034 ng/mL 0.000-0.045 CKMB (test code=A49) 1.7 ng/mL <=3.6 CPK (test code=32A) 206 IU/L 39-308 RETIC COUNT WW2016-11-06 06:25:00* Test Item Value Reference Range Comments RET% (test code=RET) 1.40 % 0.26-1.60 RET_# (test code=RET#) 0.04 X10\S\6/uL 0.01-0.07 HCT (test code=HCT) 25.4 % 35.0-46.0 RBC (test code=RBC) 3.19 10\S\6/uL 4.20-5.60 RET_COR (test code=RETC) 0.80 % 0.26-1.60 CBC (INCLUDES AUTOMATED DIFFERENTIAL)*[id number] 06:22:00* Test Item Value Reference Range Comments WBC (test code=WBC) 5.4 10\S\3/uL 4.5-11.0 RBC (test code=RBC) 3.34 10\S\6/uL 4.20-5.60 HGB (test code=HBG) 7.3 g/dL 14.0-18.0 HCT (test code=HCT) 25.4 % 35.0-46.0 MCV (test code=MCV) 76.0 fL 80.0-94.0 MCH (test code=MCH) 21.9 pg 27.0-31.0 MCHC (test code=MCHC) 28.7 g/dL 32.0-36.0 RDW (test code=RDW) 20.1 % 11.5-14.5 PLT (test code=PLT) 255 10\S\3/uL 130-400 MPV (test code=MPV) 8.8 fL 9.4-12.4 NEUTROP # (test code=NE#) 3.0 10\S\3/uL 2.0-8.0 LYMPH # (test code=LY#) 1.4 10\S\3/uL 1.2-4.0 MONOCYTE # (test code=MO#) 0.7 10\S\3/uL 0.0-1.1 EOSINOPH # (test code=EO#) 0.4 10\S\3/uL 0.0-0.7 BASOPHIL # (test code=BA#) 0.0 10\S\3/uL 0.0-0.3 IG # (test code=IG#) 0.02 10\S\3/uL 0.00-0.06 NRBC # (test code=NRBC#) 0.00 10\S\3/uL 0.00-0.01 NEUTROPH % (test code=NE%) 54.9 % 35.0-73.0 LYMPH % (test code=LY%) 25.0 % 20.0-55.0 MONO % (test code=MO%) 12.0 % 2.5-10.0 EOSINOPH % (test code=EO%) 7.0 % 0.0-5.0 BASOPHIL % (test code=BA%) 0.7 % 0.0-2.0 IG % (test code=IG%) 0.4 % 0.0-0.8 NRBC% (test code=NRBC%) 0.0 % 0.0-0.2 MANDIFF (test code=WMDIFF) NO NO RBC MORPH (test code=WRBCMOR) NORMAL IRON/TIBC/IRON SATURATION WW2016-11-06 05:38:00* Test Item Value Reference Range Comments IRON (test code=46B) 14 ug/dL 65-175 FE% SAT (test code=ISAT) 4.2 % 20.0-50.0 TIBC (test code=79B) 335 ug/dL 250-400 FERRITIN 2016-11-06 05:32:00* Test Item Value Reference Range Comments FERRITIN (test code=A19) 10.5 ng/mL 26.0-388.0 PRO TIME AND PTT 2016-11-06 02:25:00* Test Item Value Reference Range Comments PT (test code=TT) 12.2 s 9.8-13.6 INR (test code=INR) 1.1 INRH (test code=INRH) SUGGESTED THERAPEUTIC RANGE FOR INR: 2.5 - 3.5 For Patients with Prosthetic Valves or Patients with recurrent Thromboembolic Events 2.0 - 3.0 For Most Other Applications PTT (test code=PTT) 26.2 s 20.2-38.0 PTTH (test code=PTTH) To monitor the effectiveness of heparin, we offer the Anti-Xa (Heparin Assay). It can be used for either unfractionated or LMW Heparin. Order Code is ANTI-XA CBC WITH MORPHOLOGY *WW*2016-11-06 02:09:00* Test Item Value Reference Range Comments WBC (test code=WBC) 6.2 10\S\3/uL 4.5-11.0 RBC (test code=RBC) 3.56 10\S\6/uL 4.20-5.60 HGB (test code=HBG) 7.8 g/dL 14.0-18.0 HCT (test code=HCT) 26.7 % 35.0-46.0 MCV (test code=MCV) 75.0 fL 80.0-94.0 MCH (test code=MCH) 21.9 pg 27.0-31.0 MCHC (test code=MCHC) 29.2 g/dL 32.0-36.0 RDW (test code=RDW) 20.6 % 11.5-14.5 PLT (test code=PLT) 329 10\S\3/uL 130-400 MPV (test code=MPV) 9.3 fL 9.4-12.4 NEUTROP # (test code=NE#) 3.2 10\S\3/uL 2.0-8.0 LYMPH # (test code=LY#) 1.6 10\S\3/uL 1.2-4.0 MONOCYTE # (test code=MO#) 0.9 10\S\3/uL 0.0-1.1 EOSINOPH # (test code=EO#) 0.5 10\S\3/uL 0.0-0.7 BASOPHIL # (test code=BA#) 0.0 10\S\3/uL 0.0-0.3 IG # (test code=IG#) 0.02 10\S\3/uL 0.00-0.06 NRBC # (test code=NRBC#) 0.00 10\S\3/uL 0.00-0.01 NEUTROPH % (test code=NE%) 52.0 % 35.0-73.0 LYMPH % (test code=LY%) 25.4 % 20.0-55.0 MONO % (test code=MO%) 14.4 % 2.5-10.0 EOSINOPH % (test code=EO%) 7.4 % 0.0-5.0 BASOPHIL % (test code=BA%) 0.5 % 0.0-2.0 IG % (test code=IG%) 0.3 % 0.0-0.8 NRBC% (test code=NRBC%) 0.0 % 0.0-0.2 PLT EST (test code=PLTEST) ADEQUATE ADEQUATE PLT MORPH (test code=PLTMOR) NORMAL (1.5-3 um) NORMAL ANISO (test code=ANISO) 1+ NONE HYPOCHROM (test code=HYPOC) 1+ NONE MICROCYTIC (test code=MICRO) 1+ NONE POLYCHROM (test code=POLY) 1+ NONE OCCULT [id number] 02:06:00* Test Item Value Reference Range Comments Direct Exam (test code=DE3) NEGATIVE FOR OCCULT BLOOD COMPREHENSIVE METABOLIC TERRELL *WW*2016-11-06 01:57:00* Test Item Value Reference Range Comments GLUCOSE (test code=06D) 135 mg/dL 75-100 SODIUM (test code=01A) 142 mmol/L 136-145 POTASSIUM (test code=01B) 3.6 mmol/L 3.6-5.1 CHLORIDE (test code=04A) 109 mmol/L 98-107 CO2 (test code=02A) 20 mmol/L 22-32 ANION GAP (test code=ANG) 16.6 mmol/L BUN (test code=05D) 14 mg/dL 7-18 CREATININE (test code=03E) 0.9 mg/dL 0.7-1.3 BUN/CREA (test code=BCR) 16 12-20 CALCIUM (test code=09D) 7.8 mg/dL 8.3-9.5 BILI TOTAL (test code=11A) 0.1 mg/dL 0.2-1.0 PROTEIN (test code=07D) 6.6 g/dL 6.4-8.2 ALBUMIN (test code=08D) 2.9 g/dL 3.5-4.8 GLOBULIN (test code=GLB) 3.7 g/dL 1.5-3.8 ALB/GLOB (test code=AGRR) 0.8 1.0-2.6 ALK PHOS (test code=35A) 67 IU/L 42-121 AST (test code=30A) 25 IU/L <=42 ALT (test code=31A) 28 IU/L <=78 CARDIAC PROFILE 2016-11-06 01:54:00* Test Item Value Reference Range Comments TROPONIN I (test code=A84) 0.042 ng/mL 0.000-0.045 CKMB (test code=A49) 1.9 ng/mL <=3.6 CPK (test code=32A) 247 IU/L 39-308 BRAIN NATRIURETIC PROTEIN 2016-11-06 01:52:00* Test Item Value Reference Range Comments proBNP (test code=PBNP) 147 pg/mL 0-125 URINALYSIS 2016-11-06 01:28:00* Test Item Value Reference Range Comments COLOR (test code=COLU) YELLOW YELLOW CLARITY (test code=CLA) CLEAR CLEAR GLUCOSE UR (test code=UA GLUCOSE) NEGATIVE NEGATIVE BILI UR (test code=BILE) NEGATIVE NEGATIVE KETONES UR (test code=CHELSEA) NEGATIVE NEGATIVE SP GRAVITY (test code=SPGR) >=1.030 1.005-1.030 PH UR (test code=PH) 6.0 4.5-8.0 PROTEIN UR (test code=PU) NEGATIVE NEGATIVE UROBIL UR (test code=UROQ) 1.0 EU/dL 0.2-1.0 NITRITE UR (test code=NITRITE) NEGATIVE NEGATIVE BLOOD UR (test code=UA BLOOD) NEGATIVE NEGATIVE LEUK ES UR (test code=LEUK) NEGATIVE NEGATIVE AUAM (test code=WAUAM) NO NO XR CHEST 1 VIEW PORTABLE 2016-11-06 01:11:07Xray Chest 1 viewsLocation Code: L74Swblytjatn: 08/04/16CLINICAL HISTORY: Shortness of breath.Findings: The cardiomediastinal silhouette is within normal limits. No pulmonary edema,pleural effusion or consolidation.IMPRESSION: No acute cardiopulmonary abnormalityXR CHEST 1 [id number] 02:05:09XR CHEST 1 VIEW, 10/22/2016 2:02 AMReason For Examination: Chest painComparison: September 19, 2016Location: [id number] LUNGS:No consolidation or definite pulmonary edema. There is questionablevascular congestion versus bronchovascular crowding secondary to lowlung volumes.PLEURA: No pleural effusions CARDIOMEDIASTINUM:unremarkable IMPRESSION:Questionable vascular congestion versus bronchovascular crowdingsecondary to low lung volumes, otherwise no plain film evidence of anacu te cardiopulmonary abnormality.B-TYPE NATRIURETIC FACTOR (BNP)2016-10-17 00:01:00* Test Item Value Reference Range Comments B-TYPE NATRIURETIC PEPTIDE (BEAKER) (test mfvg=336) 26 pg/mL 0-100 CREATINE KINASE (CK), TOTAL AND [id number] 00:00:00* Test Item Value Reference Range Comments CREATINE KINASE TOTAL (BEAKER) (test wfvi=949) 102 U/L 40-250 CREATINE KINASE-MB (BEAKER) (test kect=341) 1.4 ng/mL 0.0-4.9 CREATINE KINASE-MB INDEX (BEAKER) (test ixez=109) 1.4 % CK-MB Reference Range:<5 Normal5-10 Borderline>10 AbnormalTROPONIN I 2016-10-17 00:00:00* Test Item Value Reference Range Comments TROPONIN I (BEAKER) (test lxtj=212) 0.01 ng/mL 0.00-0.15 Troponin I (TnI) levels must be interpreted in the context of the presenting sym ptoms and the clinical findings. Elevated TnI levels indicate myocardial damage, but are not specific for ischemic heart disease. Elevated TnI levels are seen i n patients with other cardiac conditions (including myocarditis and congestive h eart failure), and slight TnI elevations occur in patients with other conditions , including sepsis, renal failure, acidosis, acute neurological disease, and per sistent tachyarrhythmia.BASIC METABOLIC [id number] 23:54:00* Test Item Value Reference Range Comments SODIUM (BEAKER) (test adog=913) 133 meq/L 135-148 POTASSIUM (BEAKER) (test vrvm=887) 4.0 meq/L 3.6-5.5 CHLORIDE (BEAKER) (test vjga=309) 102 meq/L 98-106 CO2 (BEAKER) (test ucib=355) 18 meq/L 20-29 BLOOD UREA NITROGEN (BEAKER) (test chfz=010) 12 mg/dL 10-26 CREATININE (BEAKER) (test foer=665) 0.80 mg/dL 0.50-1.20 GLUCOSE RANDOM (BEAKER) (test vdot=126) 104 mg/dL 70-110 CALCIUM (BEAKER) (test lrqf=019) 8.9 mg/dL 8.5-10.5 EGFR (BEAKER) (test nfkp=6709) 99 mL/min/1.73 sq m ESTIMATED GFR IS NOT ACCURATE CREATININE CLEARANCE IN PREDICTING GLOMERULAR FILTRATION RATE. ESTIMATED GFR IS NOT APPLICABLE FOR DIALYSIS PATIENTS. CBC W/PLT COUNT & AUTO [id number] 23:40:00* Test Item Value Reference Range Comments WHITE BLOOD CELL COUNT (BEAKER) (test infv=291) 9.7 K/ L 4.0-10.0 RED BLOOD CELL COUNT (BEAKER) (test gdcq=180) 4.19 M/ L 4.20-5.80 HEMOGLOBIN (BEAKER) (test idjq=835) 9.4 GM/DL 13.0-16.8 HEMATOCRIT (BEAKER) (test fspz=172) 31.5 % 40.0-50.0 MEAN CORPUSCULAR VOLUME (BEAKER) (test jhyi=878) 75.2 fL 82.0-98.0 MEAN CORPUSCULAR HEMOGLOBIN (BEAKER) (test xegj=182) 22.4 pg 27.0-33.0 MEAN CORPUSCULAR HEMOGLOBIN CONC (BEAKER) (test dtwt=016) 29.8 GM/DL 32.0-36.0 RED CELL DISTRIBUTION WIDTH (BEAKER) (test ixbu=937) 18.8 % 10.3-14.2 PLATELET COUNT (BEAKER) (test gsmq=554) 248 K/CU MM 150-430 MEAN PLATELET VOLUME (BEAKER) (test hmed=896) 8.4 fL 6.5-10.5 NUCLEATED RED BLOOD CELLS (BEAKER) (test athx=444) 0 /100 WBC 0-0 (MANUAL DIFFERENTIAL)2016-10-16 23:40:00* Test Item Value Reference Range Comments NEUTROPHILS - REL (DIFF) (BEAKER) (test ymyx=4756) 81 % LYMPHOCYTES - REL (DIFF) (BEAKER) (test whjy=8202) 9 % MONOCYTES - REL (DIFF) (BEAKER) (test cogh=9206) 6 % EOSINOPHILS - REL (DIFF) (BEAKER) (test dlfv=3889) 4 % BASOPHILS - REL (DIFF) (BEAKER) (test wvrf=5140) 0 % NEUTROPHILS - ABS (DIFF) (BEAKER) (test gsak=5211) 7.86 K/ L 1.80-8.00 LYMPHOCYTES - ABS (DIFF) (BEAKER) (test oeoq=2890) 0.87 K/ L 1.48-4.50 MONOCYTES - ABS (DIFF) (BEAKER) (test hqmp=2914) 0.58 K/ L 0.00-1.30 EOSINOPHILS - ABS (DIFF) (BEAKER) (test hrmp=0106) 0.39 K/ L 0.00-0.50 BASOPHILS - ABS (DIFF) (BEAKER) (test xezi=0085) 0.00 K/ L 0.00-0.20 TOTAL COUNTED (BEAKER) (test oady=8991) 100 WBC MORPHOLOGY (BEAKER) (test knrn=966) Normal PLT MORPHOLOGY (BEAKER) (test esof=111) Normal ANISOCYTOSIS (BEAKER) (test jqvm=774) 3+ many HYPOCHROMIA (BEAKER) (test tdcu=203) 1+ few POIKILOCYTES (BEAKER) (test ixtc=209) 1+ few TEAR DROP CELLS (BEAKER) (test zpoc=649) 1+ few Reactive Lymphocytes seen.CREATINE KINASE (CK), TOTAL AND [id number] 14:18:00 * Test Item Value Reference Range Comments CREATINE KINASE TOTAL (BEAKER) (test fmcw=883) 107 U/L 30-300 CREATINE KINASE-MB (BEAKER) (test ftbj=541) 1.5 ng/mL 0.0-4.9 CREATINE KINASE-MB INDEX (BEAKER) (test pnst=015) 1.4 % CK-MB Reference Range:<5 Normal5-10 Borderline>10 AbnormalTROPONIN I 2016-10-16 14:18:00* Test Item Value Reference Range Comments TROPONIN I (BEAKER) (test almf=371) 0.01 ng/mL 0.00-0.15 Troponin I (TnI) levels must be interpreted in the context of the presenting sym ptoms and the clinical findings. Elevated TnI levels indicate myocardial damage, but are not specific for ischemic heart disease. Elevated TnI levels are seen i n patients with other cardiac conditions (including myocarditis and congestive h eart failure), and slight TnI elevations occur in patients with other conditions , including sepsis, renal failure, acidosis, acute neurological disease, and per sistent tachyarrhythmia.B-TYPE NATRIURETIC FACTOR (BNP)2016-10-16 14:17:00* Test Item Value Reference Range Comments B-TYPE NATRIURETIC PEPTIDE (BEAKER) (test emga=317) 50 pg/mL 0-100 [id number] 14:11:00* Test Item Value Reference Range Comments MAGNESIUM (BEAKER) (test qgzl=297) 2.0 mg/dL 1.5-3.0 BASIC METABOLIC [id number] 14:11:00* Test Item Value Reference Range Comments SODIUM (BEAKER) (test cobb=802) 136 meq/L 135-148 POTASSIUM (BEAKER) (test brrc=591) 4.8 meq/L 3.5-5.5 CHLORIDE (BEAKER) (test rycd=079) 104 meq/L 98-106 CO2 (BEAKER) (test aafa=981) 22 meq/L 20-31 BLOOD UREA NITROGEN (BEAKER) (test pvsb=776) 15 mg/dL 10-26 CREATININE (BEAKER) (test uqpz=680) 0.82 mg/dL 0.50-1.20 GLUCOSE RANDOM (BEAKER) (test tazu=917) 102 mg/dL 70-110 CALCIUM (BEAKER) (test ynij=850) 8.9 mg/dL 8.5-10.5 EGFR (BEAKER) (test foew=2458) 96 mL/min/1.73 sq m ESTIMATED GFR IS NOT ACCURATE CREATININE CLEARANCE IN PREDICTING GLOMERULAR FILTRATION RATE. ESTIMATED GFR IS NOT APPLICABLE FOR DIALYSIS PATIENTS. PT/[id number] 13:59:00* Test Item Value Reference Range Comments PROTIME (BEAKER) (test ecwh=402) 14.2 seconds 11.8-14.4 INR (BEAKER) (test pxum=574) 1.1 1.2-1.5 PARTIAL THROMBOPLASTIN TIME (BEAKER) (test tcgj=270) 24.3 seconds 23.2-36.1 RECOMMENDED COUMADIN/WARFARIN INR THERAPY RANGESSTANDARD DOSE: 2.0 - 3.0 Inclu katarina: PROPHYLAXIS for venous thrombosis, systemic embolization; TREATMENT for austin ous thrombosis and/or pulmonary embolus.HIGH RISK: Target INR is 2.5-3.5 for pat ients with mechanical heart valves.CBC W/PLT COUNT & AUTO [id number] 13:48:00* Test Item Value Reference Range Comments WHITE BLOOD CELL COUNT (BEAKER) (test wrdm=537) 8.7 K/ L 4.0-10.0 RED BLOOD CELL COUNT (BEAKER) (test wpqa=853) 4.38 M/ L 4.20-5.80 HEMOGLOBIN (BEAKER) (test vzrs=835) 9.9 GM/DL 13.0-16.8 HEMATOCRIT (BEAKER) (test alhj=966) 31.9 % 40.0-50.0 MEAN CORPUSCULAR VOLUME (BEAKER) (test wyqe=899) 72.8 fL 82.0-98.0 MEAN CORPUSCULAR HEMOGLOBIN (BEAKER) (test zwop=686) 22.6 pg 27.0-33.0 MEAN CORPUSCULAR HEMOGLOBIN CONC (BEAKER) (test rgxy=844) 31.0 GM/DL 32.0-36.0 RED CELL DISTRIBUTION WIDTH (BEAKER) (test anya=367) 20.5 % 12.0-15.0 PLATELET COUNT (BEAKER) (test ddij=885) 297 K/CU MM 150-430 MEAN PLATELET VOLUME (BEAKER) (test owrn=045) 7.0 fL 6.5-10.5 NUCLEATED RED BLOOD CELLS (BEAKER) (test fxmg=225) 0 /100 WBC 0-0 NEUTROPHILS RELATIVE PERCENT (BEAKER) (test uham=322) 79 % LYMPHOCYTES RELATIVE PERCENT (BEAKER) (test ybta=489) 12 % MONOCYTES RELATIVE PERCENT (BEAKER) (test wizk=234) 2 % EOSINOPHILS RELATIVE PERCENT (BEAKER) (test prbk=710) 7 % BASOPHILS RELATIVE PERCENT (BEAKER) (test wpdx=639) 1 % NEUTROPHILS ABSOLUTE COUNT (BEAKER) (test otnl=845) 6.80 K/ L 1.80-8.00 LYMPHOCYTES ABSOLUTE COUNT (BEAKER) (test jdjd=107) 1.00 K/ L 1.48-4.50 MONOCYTES ABSOLUTE COUNT (BEAKER) (test nnvf=218) 0.20 K/ L 0.00-1.30 EOSINOPHILS ABSOLUTE COUNT (BEAKER) (test ajya=809) 0.60 K/ L 0.00-0.50 BASOPHILS ABSOLUTE COUNT ([facility]) (test qlcq=939) 0.00 K/ L 0.00-0.20 BLOOD [id number] 22:00:00* Test Item Value Reference Range Comments CULTURE ([facility]) (test gdqv=5360) No growth in 5 days POCT-GLUCOSE [id number] 10:59:00* Test Item Value Reference Range Comments POC-GLUCOSE METER ([facility]) (test czal=2742) 196 mg/dL 70-[address] [facility] [id number] [place] [address] POCT-GLUCOSE [id number] 05:55:00* Test Item Value Reference Range Comments POC-GLUCOSE METER ([facility]) (test smgq=1548) 123 mg/dL 70-[address] [facility] [id number] [place] [address] POCT-GLUCOSE [id number] 21:23:00* Test Item Value Reference Range Comments POC-GLUCOSE METER ([facility]) (test hnky=1332) 192 mg/dL 70-[address] [facility] [id number] [place] [address] POCT-GLUCOSE [id number] 18:09:00* Test Item Value Reference Range Comments POC-GLUCOSE METER ([facility]) (test ktst=3516) 125 mg/dL 70-[address] [facility] [id number] [place] [address] POCT-GLUCOSE [id number] 11:05:00* Test Item Value Reference Range Comments POC-GLUCOSE METER ([facility]) (test glke=4327) 89 mg/dL 70-110 TESTED AT [address] [address] POCT-GLUCOSE [id number] 06:15:00* Test Item Value Reference Range Comments POC-GLUCOSE METER ([facility]) (test ipqz=5769) 110 mg/dL 70-110 TESTED AT [address] [address] CBC W/PLT COUNT & AUTO [id number] 01:32:00* Test Item Value Reference Range Comments WHITE BLOOD CELL COUNT ([facility]) (test tpmh=260) 6.2 K/ L 4.0-10.0 RED BLOOD CELL COUNT (BEAKER) (test vjsw=905) 3.55 M/ L 4.20-5.80 HEMOGLOBIN (BEAKER) (test nxyn=515) 7.9 GM/DL 13.0-16.8 HEMATOCRIT (BEAKER) (test fsyr=056) 26.3 % 40.0-50.0 MEAN CORPUSCULAR VOLUME (BEAKER) (test ybqv=323) 73.9 fL 82.0-98.0 MEAN CORPUSCULAR HEMOGLOBIN (BEAKER) (test msdy=489) 22.2 pg 27.0-33.0 MEAN CORPUSCULAR HEMOGLOBIN CONC (BEAKER) (test udwh=302) 30.0 GM/DL 32.0-36.0 RED CELL DISTRIBUTION WIDTH (BEAKER) (test vwwn=694) 22.2 % 12.0-15.0 PLATELET COUNT (BEAKER) (test whxi=122) 241 K/CU MM 150-430 MEAN PLATELET VOLUME (BEAKER) (test vpxs=185) 7.1 fL 6.5-10.5 NUCLEATED RED BLOOD CELLS (BEAKER) (test hdby=848) 0 /100 WBC 0-0 NEUTROPHILS RELATIVE PERCENT (BEAKER) (test naqx=163) 67 % LYMPHOCYTES RELATIVE PERCENT (BEAKER) (test sxph=022) 25 % MONOCYTES RELATIVE PERCENT (BEAKER) (test moro=607) 6 % EOSINOPHILS RELATIVE PERCENT (BEAKER) (test yfrc=213) 2 % BASOPHILS RELATIVE PERCENT (BEAKER) (test tcwo=471) 1 % NEUTROPHILS ABSOLUTE COUNT (BEAKER) (test haqz=630) 4.10 K/ L 1.80-8.00 LYMPHOCYTES ABSOLUTE COUNT (BEAKER) (test znlx=297) 1.50 K/ L 1.48-4.50 MONOCYTES ABSOLUTE COUNT (BEAKER) (test ofwn=873) 0.40 K/ L 0.00-1.30 EOSINOPHILS ABSOLUTE COUNT (BEAKER) (test iuqf=636) 0.10 K/ L 0.00-0.50 BASOPHILS ABSOLUTE COUNT (BEAKER) (test qkyx=394) 0.00 K/ L 0.00-0.20 POCT-GLUCOSE [id number] 20:48:00* Test Item Value Reference Range Comments POC-GLUCOSE METER (BEAKER) (test tbih=7855) 176 mg/dL 70-[address] [facility] [address] [facility] [address] POCT-GLUCOSE [id number] 15:59:00* Test Item Value Reference Range Comments POC-GLUCOSE METER (BEAKER) (test kcls=9393) 195 mg/dL 70-[address] [facility] [address] [facility] [address] URINALYSIS W/ [id number] 15:17:00* Test Item Value Reference Range Comments COLOR (BEAKER) (test mtlz=214) Yellow CLARITY (BEAKER) (test refm=695) Clear SPECIFIC GRAVITY UA (BEAKER) (test mrot=367) 1.027 1.001-1.035 PH UA (BEAKER) (test bfyi=230) 5.0 5.0-8.0 PROTEIN UA (BEAKER) (test vpmy=425) Negative Negative GLUCOSE UA (BEAKER) (test duvk=727) Negative Negative KETONES UA (BEAKER) (test dggt=679) Negative Negative BILIRUBIN UA (BEAKER) (test onum=291) Negative Negative BLOOD UA (BEAKER) (test bgyf=471) Negative Negative NITRITE UA (BEAKER) (test qxga=532) Negative Negative LEUKOCYTE ESTERASE UA (BEAKER) (test ywki=388) Negative Negative UROBILINOGEN UA (BEAKER) (test tetq=041) < mg/dL 0.2-1.0 RBC UA (BEAKER) (test djfp=730) 5 /HPF WBC UA (BEAKER) (test txkh=188) 2 /HPF MUCUS (BEAKER) (test ntyw=2989) Rare SQUAMOUS EPITHELIAL (BEAKER) (test sceu=921) < /HPF SOURCE(BEAKER) (test urnx=4202) POCT-GLUCOSE [id number] 11:39:00* Test Item Value Reference Range Comments POC-GLUCOSE METER (BEAKER) (test kzzy=8840) 142 mg/dL 70-[address] [facility] [address] [facility] [address] POCT-GLUCOSE [id number] 05:47:00* Test Item Value Reference Range Comments POC-GLUCOSE METER (BEAKER) (test fomv=9864) 101 mg/dL 70-[address] [facility] [address] [facility] [address] POCT-GLUCOSE [id number] 21:12:00* Test Item Value Reference Range Comments POC-GLUCOSE METER (BEAKER) (test nnsb=4145) 211 mg/dL 70-[address] [facility] [address] [facility] [address] POCT-GLUCOSE [id number] 17:11:00* Test Item Value Reference Range Comments POC-GLUCOSE METER (BEAKER) (test xizf=4308) 279 mg/dL 70-[address] [facility] [address] [facility] [address] POCT-GLUCOSE [id number] 11:48:00* Test Item Value Reference Range Comments POC-GLUCOSE METER (BEAKER) (test jqel=7921) 233 mg/dL 70-[address] [facility] [address] [facility] [address] URINE [id number] 10:50:00* Test Item Value Reference Range Comments CULTURE (BEAKER) (test zesx=1848) No growth BASIC METABOLIC [id number] 05:26:00* Test Item Value Reference Range Comments SODIUM (BEAKER) (test etzl=966) 140 meq/L 135-148 POTASSIUM (BEAKER) (test tkck=220) 4.5 meq/L 3.5-5.5 CHLORIDE (BEAKER) (test cxns=725) 109 meq/L 98-106 CO2 (BEAKER) (test dpaf=853) 22 meq/L 20-31 BLOOD UREA NITROGEN (BEAKER) (test sthe=190) 28 mg/dL 10-26 CREATININE (BEAKER) (test yofe=133) 0.88 mg/dL 0.50-1.20 GLUCOSE RANDOM (BEAKER) (test dodq=115) 216 mg/dL 70-110 CALCIUM (BEAKER) (test uuxe=875) 10.0 mg/dL 8.5-10.5 Discordant result compared to previous result. Clinical correlation required. EGFR (BEAKER) (test glvh=3880) 89 mL/min/1.73 sq m ESTIMATED GFR IS NOT ACCURATE CREATININE CLEARANCE IN PREDICTING GLOMERULAR FILTRATION RATE. ESTIMATED GFR IS NOT APPLICABLE FOR DIALYSIS PATIENTS. CBC W/PLT COUNT & AUTO [id number] 05:06:00* Test Item Value Reference Range Comments WHITE BLOOD CELL COUNT (BEAKER) (test imxv=958) 18.4 K/ L 4.0-10.0 RED BLOOD CELL COUNT (BEAKER) (test amxp=395) 3.65 M/ L 4.20-5.80 HEMOGLOBIN (BEAKER) (test xaof=250) 8.3 GM/DL 13.0-16.8 HEMATOCRIT (BEAKER) (test ttil=336) 27.1 % 40.0-50.0 MEAN CORPUSCULAR VOLUME (BEAKER) (test evpj=648) 74.2 fL 82.0-98.0 MEAN CORPUSCULAR HEMOGLOBIN (BEAKER) (test wrpw=088) 22.8 pg 27.0-33.0 MEAN CORPUSCULAR HEMOGLOBIN CONC (BEAKER) (test ayxo=854) 30.7 GM/DL 32.0-36.0 RED CELL DISTRIBUTION WIDTH (BEAKER) (test dxrg=087) 21.2 % 12.0-15.0 PLATELET COUNT (BEAKER) (test mfjh=228) 258 K/CU MM 150-430 MEAN PLATELET VOLUME (BEAKER) (test hyte=969) 7.5 fL 6.5-10.5 NUCLEATED RED BLOOD CELLS (BEAKER) (test idpz=879) 0 /100 WBC 0-0 NEUTROPHILS RELATIVE PERCENT (BEAKER) (test oeaz=634) 94 % LYMPHOCYTES RELATIVE PERCENT (BEAKER) (test csls=678) 3 % MONOCYTES RELATIVE PERCENT (BEAKER) (test cxqp=268) 3 % EOSINOPHILS RELATIVE PERCENT (BEAKER) (test sfyi=396) 0 % BASOPHILS RELATIVE PERCENT (BEAKER) (test trkw=686) 0 % NEUTROPHILS ABSOLUTE COUNT (BEAKER) (test oybw=267) 17.30 K/ L 1.80-8.00 LYMPHOCYTES ABSOLUTE COUNT (BEAKER) (test watc=865) 0.50 K/ L 1.48-4.50 MONOCYTES ABSOLUTE COUNT (BEAKER) (test vodr=063) 0.60 K/ L 0.00-1.30 EOSINOPHILS ABSOLUTE COUNT (BEAKER) (test ztfa=749) 0.00 K/ L 0.00-0.50 BASOPHILS ABSOLUTE COUNT (BEAKER) (test icjn=812) 0.00 K/ L 0.00-0.20 POCT-GLUCOSE [id number] 05:06:00* Test Item Value Reference Range Comments POC-GLUCOSE METER (BEAKER) (test gqvv=2269) 278 mg/dL 70-[address] [facility] [address] [facility] [address] POCT-GLUCOSE [id number] 22:00:00* Test Item Value Reference Range Comments POC-GLUCOSE METER (BEAKER) (test geam=8928) 239 mg/dL 70-[address] [facility] [address] [facility] [address] POCT-GLUCOSE [id number] 16:00:00* Test Item Value Reference Range Comments POC-GLUCOSE METER (BEAKER) (test attk=4891) 334 mg/dL 70-110 Notified YESENIA CHRISTENSEN/TESTED AT [facility] [id number] [place] [address] POCT-GLUCOSE [id number] 10:57:00* Test Item Value Reference Range Comments POC-GLUCOSE METER (BEAKER) (test rflt=4473) 235 mg/dL 70-[address] [facility] [id number] [place] [address] POCT-GLUCOSE [id number] 06:11:00* Test Item Value Reference Range Comments POC-GLUCOSE METER (BEAKER) (test wlle=4069) 173 mg/dL 70-[address] [facility] [address] [facility] [address] POCT-GLUCOSE [id number] 20:57:00* Test Item Value Reference Range Comments POC-GLUCOSE METER (BEAKER) (test meug=6844) 324 mg/dL 70-110 Will Repeat Test/TESTED AT [facility] [id number] [place] [address] POCT-GLUCOSE [id number] 15:45:00* Test Item Value Reference Range Comments POC-GLUCOSE METER (BEAKER) (test wnzy=1144) 324 mg/dL 70-110 Will Repeat Test/TESTED AT [facility] [id number] [place] [id number] CREATINE KINASE (CK), TOTAL AND [id number] 12:00:00* Test Item Value Reference Range Comments CREATINE KINASE TOTAL (BEAKER) (test almd=913) 141 U/L 30-300 CREATINE KINASE-MB (BEAKER) (test lstm=171) 1.3 ng/mL 0.0-4.9 CREATINE KINASE-MB INDEX (BEAKER) (test mrol=805) 0.9 % CK-MB Reference Range:<5 Normal5-10 Borderline>10 AbnormalTROPONIN I 2016-10-08 12:00:00* Test Item Value Reference Range Comments TROPONIN I (BEAKER) (test dwnt=847) < ng/mL 0.00-0.15 Troponin I (TnI) levels must be interpreted in the context of the presenting sym ptoms and the clinical findings. Elevated TnI levels indicate myocardial damage, but are not specific for ischemic heart disease. Elevated TnI levels are seen i n patients with other cardiac conditions (including myocarditis and congestive h eart failure), and slight TnI elevations occur in patients with other conditions , including sepsis, renal failure, acidosis, acute neurological disease, and per sistent tachyarrhythmia.POCT-GLUCOSE [id number] 10:42:00* Test Item Value Reference Range Comments POC-GLUCOSE METER ([facility]) (test wmry=6487) 115 mg/dL 70-[address] [facility] [address] [facility] [address] SEDIMENTATION [id number] 07:45:00* Test Item Value Reference Range Comments SEDIMENTATION RATE, ERYTHROCYTE (BEAKER) (test gipw=669) 17 mm/HR 0-20 CREATINE KINASE (CK), TOTAL AND [id number] 07:22:00* Test Item Value Reference Range Comments CREATINE KINASE TOTAL (BEAKER) (test qffn=568) 147 U/L 30-300 CREATINE KINASE-MB (BEAKER) (test plyi=511) 1.5 ng/mL 0.0-4.9 CREATINE KINASE-MB INDEX (BEAKER) (test ezne=095) 1.0 % CK-MB Reference Range:<5 Normal5-10 Borderline>10 AbnormalTROPONIN I 2016-10-08 07:22:00* Test Item Value Reference Range Comments TROPONIN I (BEAKER) (test cluc=262) 0.01 ng/mL 0.00-0.15 Troponin I (TnI) levels must be interpreted in the context of the presenting sym ptoms and the clinical findings. Elevated TnI levels indicate myocardial damage, but are not specific for ischemic heart disease. Elevated TnI levels are seen i n patients with other cardiac conditions (including myocarditis and congestive h eart failure), and slight TnI elevations occur in patients with other conditions , including sepsis, renal failure, acidosis, acute neurological disease, and per sistent tachyarrhythmia.C-REACTIVE [id number] 07:17:00* Test Item Value Reference Range Comments C-REACTIVE PROTEIN (BEAKER) (test rmpv=329) 4.82 mg/dL 0.00-0.50 [id number] 07:14:00* Test Item Value Reference Range Comments MAGNESIUM (BEAKER) (test cuix=670) 1.5 mg/dL 1.5-3.0 BASIC METABOLIC [id number] 07:14:00* Test Item Value Reference Range Comments SODIUM (BEAKER) (test jaxm=399) 136 meq/L 135-148 POTASSIUM (BEAKER) (test lyca=345) 3.7 meq/L 3.5-5.5 CHLORIDE (BEAKER) (test hyrk=535) 106 meq/L 98-106 CO2 (BEAKER) (test ephz=277) 25 meq/L 20-31 BLOOD UREA NITROGEN (BEAKER) (test usrr=314) 11 mg/dL 10-26 CREATININE (BEAKER) (test fdpv=865) 0.74 mg/dL 0.50-1.20 GLUCOSE RANDOM (BEAKER) (test eejc=518) 105 mg/dL 70-110 CALCIUM (BEAKER) (test fikl=575) 8.3 mg/dL 8.5-10.5 EGFR (BEAKER) (test xxxb=0946) 109 mL/min/1.73 sq m ESTIMATED GFR IS NOT ACCURATE CREATININE CLEARANCE IN PREDICTING GLOMERULAR FILTRATION RATE. ESTIMATED GFR IS NOT APPLICABLE FOR DIALYSIS PATIENTS. CBC W/PLT COUNT & AUTO [id number] 06:46:00* Test Item Value Reference Range Comments WHITE BLOOD CELL COUNT (BEAKER) (test harz=731) 9.1 K/ L 4.0-10.0 RED BLOOD CELL COUNT (BEAKER) (test mxld=690) 3.83 M/ L 4.20-5.80 HEMOGLOBIN (BEAKER) (test vgtu=108) 8.6 GM/DL 13.0-16.8 HEMATOCRIT (BEAKER) (test ezzf=033) 28.6 % 40.0-50.0 MEAN CORPUSCULAR VOLUME (BEAKER) (test vacu=484) 74.7 fL 82.0-98.0 MEAN CORPUSCULAR HEMOGLOBIN (BEAKER) (test rtpr=230) 22.5 pg 27.0-33.0 MEAN CORPUSCULAR HEMOGLOBIN CONC (BEAKER) (test yajq=097) 30.1 GM/DL 32.0-36.0 RED CELL DISTRIBUTION WIDTH (BEAKER) (test cvha=935) 21.1 % 12.0-15.0 PLATELET COUNT (BEAKER) (test xctj=218) 265 K/CU MM 150-430 MEAN PLATELET VOLUME (BEAKER) (test nhvt=312) 6.7 fL 6.5-10.5 NUCLEATED RED BLOOD CELLS (BEAKER) (test udnh=251) 0 /100 WBC 0-0 NEUTROPHILS RELATIVE PERCENT (BEAKER) (test lapn=228) 83 % LYMPHOCYTES RELATIVE PERCENT (BEAKER) (test hqzb=765) 9 % MONOCYTES RELATIVE PERCENT (BEAKER) (test skla=412) 6 % EOSINOPHILS RELATIVE PERCENT (BEAKER) (test trfu=692) 2 % BASOPHILS RELATIVE PERCENT (BEAKER) (test ulbc=695) 0 % NEUTROPHILS ABSOLUTE COUNT (BEAKER) (test umuw=589) 7.50 K/ L 1.80-8.00 LYMPHOCYTES ABSOLUTE COUNT (BEAKER) (test fcqz=401) 0.80 K/ L 1.48-4.50 MONOCYTES ABSOLUTE COUNT (BEAKER) (test mbto=103) 0.50 K/ L 0.00-1.30 EOSINOPHILS ABSOLUTE COUNT (BEAKER) (test gmnb=026) 0.20 K/ L 0.00-0.50 BASOPHILS ABSOLUTE COUNT (BEAKER) (test mkgg=617) 0.00 K/ L 0.00-0.20 POC Glucose, [id number] 06:18:00* Test Item Value Reference Range Comments POC Glucose (test code=POCGLUC) 261 mg/dL 70-115 If you consider your patient critically ill, the [facility] Accu-Chek InformII metershould not be used for Glucose determinations.Draw a venous Glucose and send to the Main Lab for Analysis. CK [id number] 21:18:00* Test Item Value Reference Range Comments CK (test code=CK) 202 U/L 39-308 CKMB (test code=CKMB) 2.2 ng/mL 0.0-4.9 CKMB% (test code=CKMBP) 1.1 % 0.0-3.4 Troponin [id number] 21:18:00* Test Item Value Reference Range Comments Troponin T (test code=GISELL) <0.010 ng/mL 0.000-0.090 CK [id number] 21:18:00* Test Item Value Reference Range Comments CK (test code=CK) 202 U/L 39-308 Troponin [id number] 08:05:00* Test Item Value Reference Range Comments Troponin T (test code=GISELL) <0.010 ng/mL 0.000-0.090 Comprehensive Metabolic [id number] 07:44:00* Test Item Value Reference Range Comments Sodium (test code=NA) 140 mmol/L 135-145 Potassium (test code=K) 4.1 mmol/L 3.5-5.1 Chloride (test code=CL) 103 mmol/L 98-105 Carbon Dioxide (test code=CO2) 22 mmol/L 22-29 Glucose (test code=GLU) 120 mg/dL 70-115 Blood Urea Nitrogen (test code=BUN) 15 mg/dL 6-20 Creatinine (test code=CREAT) 0.8 mg/dL 0.7-1.2 Calcium (test code=CA) 9.0 mg/dL 8.3-10.5 Prot Total (test code=TP) 6.6 g/dL 6.4-8.3 Albumin (test code=ALB) 3.6 g/dL 3.5-5.2 A/G Ratio (test code=AGRATIO) 1.2 Ratio Globulin (test code=GLOB) 3.0 2.9-3.1 Bili Total (test code=TBIL) 0.2 mg/dL 0.1-0.9 Alk Phos (test code=APHOS) 82 U/L 40-129 AST (test code=AST) 24 U/L 1-40 ALT (test code=ALT) 19 U/L 1-41 BUN/Creatinine Ratio (test code=BCRATIO) 18.8 Anion Gap (test code=AGAP) 15 mmol/L 7-16 Estimated GFR (test code=GFR) >60 mL/min/1.73m2 eGFR (estimated Glomerular Filtration Rate) is an estimated value,calculated from the patient's serum creatinine using the MDRD equation.It is NOT the patient's actual GFR. The eGFR provides a more clinicallyuseful measure of kidney disease than serum creatinine alone.This calculation takes sex and race into account, if the informationis provided. If the race is not provided, and the patient isAfrican-Faroese, multiply by 1.212. If sex is not provided, and thepatient is female, multiply by 0.742. Results for patients <18 years ofage have not been validated by the MDRD study and should be interpretedwith caution.eGFR Result Interpretation:eGFR > or=60 is in the Normal RangeeGFR < 60 may mean kidney diseaseeGFR < 15 may mean kidney failureRanges recommended by the National Kidney Foundat ion,http://nkdep.nih.gov CK [id number] 07:44:00* Test Item Value Reference Range Comments CK (test code=CK) 259 U/L 39-308 CK [id number] 07:44:00* Test Item Value Reference Range Comments CK (test code=CK) 259 U/L 39-308 CKMB (test code=CKMB) 2.3 ng/mL 0.0-4.9 CKMB% (test code=CKMBP) 0.9 % 0.0-3.4 [id number] 07:43:00* Test Item Value Reference Range Comments NT ProBnp (test code=PBNP) 17 pg/mL 0-124 CBC with [id number] 07:17:00* Test Item Value Reference Range Comments WBC (test code=WBC) 9.4 K/cumm 4.4-10.5 RBC (test code=RBC) 3.73 M/cumm 4.10-5.70 Hemoglobin (test code=HGB) 8.4 gm/dL 13.4-17.4 Hematocrit (test code=HCT) 28.9 % 38.7-52.0 MCV (test code=MCV) 77.5 fL 80-100 MCH (test code=MCH) 22.6 pg 27.0-32.5 MCHC (test code=MCHC) 29.2 g/dL 32.0-37.5 RDW (test code=RDW) 17.2 % 11.5-14.5 Platelet Count (test code=PLTCT) 364 K/cumm 140-440 MPV (test code=MPV) 8.3 fL Diff Method (test code=DIFFM) Manual Neutrophil (test code=NEUT) 75.8 % 36-70 Lymphocyte (test code=LYMPH) 14.6 % 12-44 Monocyte (test code=MONO) 6.0 % 0-11 Eosinophil (test code=EOS) 3.1 % 0-7 Basophil (test code=BASO) 0.4 % 0-2 Neutro Abs (test code=ANEUT) 7.1 K/cumm 1.6-7.4 Lymph Abs (test code=ALYMPH) 1.4 K/cumm 0.5-4.6 [place] Abs (test code=AMONO) 0.6 K/cumm 0.0-1.2 Eos Abs (test code=AEOS) 0.29 K/cumm 0.00-0.74 Baso Abs (test code=ABASO) 0.0 K/cumm 0.00-0.21 RBC Morphology (test code=RBCMRPH) 1+ Microcytosis 1+ Hypochromia WBC Morphology (test code=WBCMRPH) Normal Platelet Est (test code=PLTEST) Normal Platelet on Smear [id number] 21:15:00* Test Item Value Reference Range Comments PROCALCITONIN (BEAKER) (test ofap=5446) < ng/mL <0.05 SEPSIS RISK (ng/mL)Low: 0.05-0.50Intermediate: 0.51-2.00High: > =2.01COMPREHENSIVE METABOLIC [id number] 20:56:00* Test Item Value Reference Range Comments TOTAL PROTEIN (BEAKER) (test qkcc=675) 8.5 gm/dL 6.0-8.5 Specimen markedly hemolyzed ALBUMIN (BEAKER) (test vrin=6849) 3.8 g/dL 3.5-5.0 Specimen markedly hemolyzed ALKALINE PHOSPHATASE (BEAKER) (test wgil=762) 91 U/L 30-115 BILIRUBIN TOTAL (BEAKER) (test hgtc=538) 0.3 mg/dL 0.1-1.3 Specimen markedly hemolyzed SODIUM (BEAKER) (test dybw=590) 136 meq/L 135-148 POTASSIUM (BEAKER) (test aeyr=487) 5.9 meq/L 3.5-5.5 Specimen markedly hemolyzed CHLORIDE (BEAKER) (test wank=379) 105 meq/L 98-106 CO2 (BEAKER) (test zeum=347) 20 meq/L 20-31 BLOOD UREA NITROGEN (BEAKER) (test yhvl=663) 9 mg/dL 10-26 CREATININE (BEAKER) (test xhwb=508) 0.82 mg/dL 0.50-1.20 Specimen markedly hemolyzed GLUCOSE RANDOM (BEAKER) (test bsnt=047) 117 mg/dL 70-110 CALCIUM (BEAKER) (test wcdf=559) 9.4 mg/dL 8.5-10.5 AST (SGOT) (BEAKER) (test zble=375) 43 U/L 5-40 Specimen markedly hemolyzed ALT (SGPT) (BEAKER) (test exop=813) 21 U/L 6-50 Specimen markedly hemolyzed EGFR (BEAKER) (test ozsn=1594) 96 mL/min/1.73 sq m ESTIMATED GFR IS NOT ACCURATE CREATININE CLEARANCE IN PREDICTING GLOMERULAR FILTRATION RATE. ESTIMATED GFR IS NOT APPLICABLE FOR DIALYSIS PATIENTS. CBC W/PLT COUNT & AUTO [id number] 20:44:00* Test Item Value Reference Range Comments WHITE BLOOD CELL COUNT (BEAKER) (test pmwk=527) 7.9 K/ L 4.0-10.0 RED BLOOD CELL COUNT (BEAKER) (test uiid=850) 4.18 M/ L 4.20-5.80 HEMOGLOBIN (BEAKER) (test seca=023) 9.7 GM/DL 13.0-16.8 HEMATOCRIT (BEAKER) (test prmb=859) 30.9 % 40.0-50.0 MEAN CORPUSCULAR VOLUME (BEAKER) (test lkyt=473) 73.9 fL 82.0-98.0 MEAN CORPUSCULAR HEMOGLOBIN (BEAKER) (test ljdw=697) 23.2 pg 27.0-33.0 MEAN CORPUSCULAR HEMOGLOBIN CONC (BEAKER) (test hodd=409) 31.5 GM/DL 32.0-36.0 RED CELL DISTRIBUTION WIDTH (BEAKER) (test djjr=450) 20.2 % 12.0-15.0 PLATELET COUNT (BEAKER) (test jaed=869) 317 K/CU MM 150-430 MEAN PLATELET VOLUME (BEAKER) (test rjax=151) 7.1 fL 6.5-10.5 NUCLEATED RED BLOOD CELLS (BEAKER) (test ywue=804) 0 /100 WBC 0-0 NEUTROPHILS RELATIVE PERCENT (BEAKER) (test tkiv=778) 71 % LYMPHOCYTES RELATIVE PERCENT (BEAKER) (test gqhh=486) 15 % MONOCYTES RELATIVE PERCENT (BEAKER) (test mycr=450) 9 % EOSINOPHILS RELATIVE PERCENT (BEAKER) (test mtnz=461) 4 % BASOPHILS RELATIVE PERCENT (BEAKER) (test ixmq=241) 1 % NEUTROPHILS ABSOLUTE COUNT (BEAKER) (test wuji=940) 5.70 K/ L 1.80-8.00 LYMPHOCYTES ABSOLUTE COUNT (BEAKER) (test ftde=949) 1.20 K/ L 1.48-4.50 MONOCYTES ABSOLUTE COUNT (BEAKER) (test tibc=909) 0.70 K/ L 0.00-1.30 EOSINOPHILS ABSOLUTE COUNT (BEAKER) (test bpfp=031) 0.30 K/ L 0.00-0.50 BASOPHILS ABSOLUTE COUNT (BEAKER) (test ujxg=610) 0.10 K/ L 0.00-0.20 URINALYSIS WITH MICROSCOPIC IF [id number] 23:30:00* Test Item Value Reference Range Comments COLOR (BEAKER) (test adkf=451) Yellow CLARITY (BEAKER) (test iosf=350) Clear SPECIFIC GRAVITY UA (BEAKER) (test urfs=476) >= 1.001-1.035 PH UA (BEAKER) (test lmqa=335) 6.0 5.0-8.0 PROTEIN UA (BEAKER) (test azyd=871) Negative Negative GLUCOSE UA (BEAKER) (test xlzt=039) Negative Negative KETONES UA (BEAKER) (test ktoh=102) Negative Negative BILIRUBIN UA (BEAKER) (test voqh=321) Negative Negative BLOOD UA (BEAKER) (test zbop=921) Negative Negative NITRITE UA (BEAKER) (test jpnt=232) Negative Negative LEUKOCYTE ESTERASE UA (BEAKER) (test qmrx=138) Negative Negative UROBILINOGEN UA (BEAKER) (test ahwf=236) 1.0 mg/dL 0.2-1.0 SOURCE(BEAKER) (test jhbf=5876) CREATINE KINASE (CK), TOTAL AND [id number] 23:12:00* Test Item Value Reference Range Comments CREATINE KINASE TOTAL (BEAKER) (test lvuu=981) 194 U/L 40-250 CREATINE KINASE-MB (BEAKER) (test sori=488) 1.5 ng/mL 0.0-4.9 CREATINE KINASE-MB INDEX (BEAKER) (test xlsb=328) 0.8 % CK-MB Reference Range:<5 Normal5-10 Borderline>10 AbnormalTROPONIN I 2016-08-08 23:12:00* Test Item Value Reference Range Comments TROPONIN I (BEAKER) (test tfku=611) < ng/mL 0.00-0.15 Troponin I (TnI) levels must be interpreted in the context of the presenting sym ptoms and the clinical findings. Elevated TnI levels indicate myocardial damage, but are not specific for ischemic heart disease. Elevated TnI levels are seen i n patients with other cardiac conditions (including myocarditis and congestive h eart failure), and slight TnI elevations occur in patients with other conditions , including sepsis, renal failure, acidosis, acute neurological disease, and per sistent tachyarrhythmia.BASIC METABOLIC [id number] 23:04:00* Test Item Value Reference Range Comments SODIUM (BEAKER) (test mldc=926) 138 meq/L 135-148 POTASSIUM (BEAKER) (test fdjk=726) 3.7 meq/L 3.6-5.5 CHLORIDE (BEAKER) (test jiyk=624) 108 meq/L 98-106 CO2 (BEAKER) (test zkwm=063) 23 meq/L 20-29 BLOOD UREA NITROGEN (BEAKER) (test chfw=701) 14 mg/dL 10-26 CREATININE (BEAKER) (test hwkn=552) 0.80 mg/dL 0.50-1.20 GLUCOSE RANDOM (BEAKER) (test qeto=610) 128 mg/dL 70-110 CALCIUM (BEAKER) (test uina=793) 8.7 mg/dL 8.5-10.5 EGFR (BEAKER) (test qmhg=7128) 99 mL/min/1.73 sq m ESTIMATED GFR IS NOT ACCURATE CREATININE CLEARANCE IN PREDICTING GLOMERULAR FILTRATION RATE. ESTIMATED GFR IS NOT APPLICABLE FOR DIALYSIS PATIENTS. CBC W/PLT COUNT & AUTO [id number] 22:48:00* Test Item Value Reference Range Comments WHITE BLOOD CELL COUNT (BEAKER) (test tltt=694) 7.7 K/ L 4.0-10.0 RED BLOOD CELL COUNT (BEAKER) (test mmkq=124) 3.60 M/ L 4.20-5.80 HEMOGLOBIN (BEAKER) (test gjzv=946) 8.5 GM/DL 13.0-16.8 HEMATOCRIT (BEAKER) (test itdp=115) 27.7 % 40.0-50.0 MEAN CORPUSCULAR VOLUME (BEAKER) (test robh=175) 76.9 fL 82.0-98.0 MEAN CORPUSCULAR HEMOGLOBIN (BEAKER) (test ncew=003) 23.6 pg 27.0-33.0 MEAN CORPUSCULAR HEMOGLOBIN CONC (BEAKER) (test kxvy=668) 30.7 GM/DL 32.0-36.0 RED CELL DISTRIBUTION WIDTH (BEAKER) (test asdl=002) 18.2 % 10.3-14.2 PLATELET COUNT (BEAKER) (test dauo=400) 279 K/CU MM 150-430 MEAN PLATELET VOLUME (BEAKER) (test wiqh=169) 8.4 fL 6.5-10.5 NUCLEATED RED BLOOD CELLS (BEAKER) (test sgvo=381) 0 /100 WBC 0-0 NEUTROPHILS RELATIVE PERCENT (BEAKER) (test smce=475) 68 % LYMPHOCYTES RELATIVE PERCENT (BEAKER) (test xgvl=687) 16 % MONOCYTES RELATIVE PERCENT (BEAKER) (test easo=203) 7 % EOSINOPHILS RELATIVE PERCENT (BEAKER) (test pbwz=867) 8 % BASOPHILS RELATIVE PERCENT (BEAKER) (test bwul=876) 1 % NEUTROPHILS ABSOLUTE COUNT (BEAKER) (test fkaq=310) 5.27 K/ L 1.80-8.00 LYMPHOCYTES ABSOLUTE COUNT (BEAKER) (test kezv=027) 1.24 K/ L 1.48-4.50 MONOCYTES ABSOLUTE COUNT (BEAKER) (test ghdk=375) 0.54 K/ L 0.00-1.30 EOSINOPHILS ABSOLUTE COUNT (BEAKER) (test xkfa=955) 0.63 K/ L 0.00-0.50 BASOPHILS ABSOLUTE COUNT (BEAKER) (test hmbu=106) 0.04 K/ L 0.00-0.20 CT STONE PROTOCOL [id number] 05:31:49CT ABDOMEN AND PELVIS WITHOUT CONTRAST:After hours services performed at 0510 hours. LOCATION: [id number]: Flank pain, side unspecified.COMPARISON: None.TECHNIQUE: Volumetric CT acquisition of the abdomen and pelvis withoutcontrast. Axial images were reconstructed. One or more of the followingradiation dose reduction techniques was used: automated exposure control,adjustment of the mA and/or kV according to patient size, and/or utilization ofiterative reconstruction techni que.FINDINGS:The lung bases are clear. Visualized portions of the heart are norm al.The gallbladder is absent. The liver, pancreas, spleen, and adrenal glands ar enormal.Small right renal calculi measure up to 4 mm. There is no hydronephrosis orhydroureter. The kidneys, ureters, and bladder are otherwise normal. Theprost ate and seminal vesicles are normal. The small bowel, appendix, and colonare nor mal.There is no lymphadenopathy, free air or fluid, or focal osseous abnormality inthe abdomen or pelvis. An IVC filter is in place.IMPRESSION:Nonobstructing ri ght renal calculi measuring up to 4 mm.[id number] 05:19:00* Test Item Value Reference Range Comments ACETAMINPH (test code=94M) <2.0 ug/mL 10.0-30.0 COMPREHENSIVE METABOLIC [id number] 05:19:00* Test Item Value Reference Range Comments GLUCOSE (test code=06D) 114 mg/dL 75-100 SODIUM (test code=01A) 143 mmol/L 136-145 POTASSIUM (test code=01B) 3.6 mmol/L 3.6-5.1 CHLORIDE (test code=04A) 109 mmol/L 98-107 CO2 (test code=02A) 24 mmol/L 22-32 ANION GAP (test code=ANG) 13.6 mmol/L BUN (test code=05D) 8 mg/dL 7-18 CREATININE (test code=03E) 0.8 mg/dL 0.7-1.3 BUN/CREA R (test code=BCR) 10 12-20 CALCIUM (test code=09D) 8.3 mg/dL 8.3-9.5 BILI TOTAL (test code=11A) 0.5 mg/dL 0.2-1.0 PROTEIN (test code=07D) 7.5 g/dL 6.4-8.2 ALBUMIN (test code=08D) 3.4 g/dL 3.5-4.8 GLOBULIN (test code=GLB) 4.1 g/dL 1.5-3.8 ALB/GLOB (test code=AGRR) 0.8 1.0-2.6 ALK PHOS (test code=35A) 81 IU/L 42-121 AST (test code=30A) 21 IU/L <=42 ALT (test code=31A) 26 IU/L <=78 [id number] 05:16:00* Test Item Value Reference Range Comments SALICYLATE (test code=94B) <1.7 mg/dL 2.8-20.0 ALCOHOL BLOOD (ETOH)2016-08-04 05:16:00* Test Item Value Reference Range Comments ALCOHOL (test code=56A) <10 mg/dL <=10 Ref Range Change (test code=REF RANGE) Please note the change in reference range CBC (INCLUDES AUTOMATED DIFFERENTIAL)2016-08-04 05:00:00* Test Item Value Reference Range Comments WBC (test code=WBC) 10.8 10\S\3/uL 4.5-11.0 RBC (test code=RBC) 3.87 10\S\6/uL 4.20-5.60 HGB (test code=HBG) 8.9 g/dL 14.0-18.0 HCT (test code=HCT) 29.7 % 35.0-46.0 MCV (test code=MCV) 76.7 fL 80.0-94.0 MCH (test code=MCH) 23.0 pg 27.0-31.0 MCHC (test code=MCHC) 30.0 g/dL 32.0-36.0 RDW (test code=RDW) 19.2 % 11.5-14.5 PLT (test code=PLT) 313 10\S\3/uL 130-400 MPV (test code=MPV) 8.9 fL 9.4-12.4 NEUTROP # (test code=NE#) 7.3 10\S\3/uL 2.0-8.0 LYMPH # (test code=LY#) 1.7 10\S\3/uL 1.2-4.0 MONOCYTE # (test code=MO#) 1.2 10\S\3/uL 0.0-1.1 EOSINOPH # (test code=EO#) 0.5 10\S\3/uL 0.0-0.7 BASOPHIL # (test code=BA#) 0.1 10\S\3/uL 0.0-0.3 IG # (test code=IG#) 0.03 10\S\3/uL 0.00-0.06 NRBC # (test code=NRBC#) 0.00 10\S\3/uL 0.00-0.01 NEUTROPH % (test code=NE%) 67.5 % 35.0-73.0 LYMPH % (test code=LY%) 15.7 % 20.0-55.0 MONO % (test code=MO%) 11.1 % 2.5-10.0 EOSINOPH % (test code=EO%) 4.9 % 0.0-5.0 BASOPHIL % (test code=BA%) 0.5 % 0.0-2.0 IG % (test code=IG%) 0.3 % 0.0-0.8 NRBC% (test code=NRBC%) 0.0 % 0.0-0.2 MANDIFF (test code=MDIFF) NO NO RBC MORPH (test code=RBCMOR) NORMAL URINALYSIS WITH [id number] 04:45:00* Test Item Value Reference Range Comments COLOR (test code=COLU) YELLOW YELLOW CLARITY (test code=CLA) CLEAR CLEAR GLUCOSE UR (test code=UA GLUCOSE) NEGATIVE NEGATIVE BILI UR (test code=BILE) NEGATIVE NEGATIVE KETONES UR (test code=CHELSEA) NEGATIVE NEGATIVE SP GRAVITY (test code=SPGR) 1.021 1.005-1.030 PH UR (test code=PH) 6.0 4.5-8.0 PROTEIN UR (test code=PU) TRACE NEGATIVE UROBIL UR (test code=UROQ) 0.2 EU/dL 0.2-1.0 NITRITE UR (test code=NITRITE) NEGATIVE NEGATIVE BLOOD UR (test code=UA BLOOD) NEGATIVE NEGATIVE LEUK ES UR (test code=LEUK) NEGATIVE NEGATIVE WBC UR (test code=UWBC) 0 /HPF 0-3 RBC UR (test code=URBC) 0 /HPF 0-2 EPITH UR (test code=UEPC) NONE /LPF NONE BACTERIA UR (test code=UBACT) NONE /HPF NONE CAST UR (test code=CAST) /LPF NONE CRYSTAL UR (test code=CRYU) / LPF NONE MUCUS UR (test code=MUC) / HPF NONE AMORPH UR (test code=SRINI) / HPF NONE TRICH UR (test code=UTRICH) /HPF NONE YEAST UR (test code=UY) /HPF NONE SPERM UR (test code=USPERM) /HPF NONE DRUGS OF [id number] 04:44:00* Test Item Value Reference Range Comments DRUG SCRN (test code=HDOA) URINE DRUG SCREEN This is an unconfirmed screening result and should not be used for non-medical purposes CANNABINOD (test code=88C) Negative NEGATIVE AMPHETHETM (test code=84A) Negative NEGATIVE BENZODIAZP (test code=86A) Negative NEGATIVE BARBITURAT (test code=85A) Negative NEGATIVE OPIATES (test code=92B) Negative NEGATIVE COCAINE (test code=87A) Negative NEGATIVE PHENCYCLID (test code=66A) Negative NEGATIVE METHADONE (test code=64A) Negative NEGATIVE DOAH (test code=DOAH) URINE DRUG SCREEN Cut-off values are as follows: Cannabinoids 50 ng/mL Cocaine 300 ng/mL Amphetamines 1000 ng/mL Phencyclidine 25 ng/mL Benzodiazepines 200 ng.mL Methadone 300 ng/mL Barbiturates 200 ng/mL Opiates 2000 ng/mL XR CHEST 1 VIEW [id number] 04:40:40Examination: Portable chest After hours service provided on 08/04/2016 4:40 AM.Location code: [id number]: Chest 06/28/16Discussion:Clinical history is remarkable for pain. Cardiac silhouette is enlarged.Minimal congestion is noted. No consolidation, effusion, or pneumothorax ispresent.Impression:Minimal congestion.CBC W/PLT COUNT & AUTO [id number] 22:53:00* Test Item Value Reference Range Comments WHITE BLOOD CELL COUNT (BEAKER) (test mwpp=166) 12.8 K/ L 4.0-10.0 RED BLOOD CELL COUNT (BEAKER) (test bgki=645) 3.77 M/ L 4.20-5.80 HEMOGLOBIN (BEAKER) (test gepa=107) 8.5 GM/DL 13.0-16.8 HEMATOCRIT (BEAKER) (test vtgg=689) 28.2 % 40.0-50.0 MEAN CORPUSCULAR VOLUME (BEAKER) (test ahwm=562) 74.7 fL 82.0-98.0 MEAN CORPUSCULAR HEMOGLOBIN (BEAKER) (test adct=554) 22.4 pg 27.0-33.0 MEAN CORPUSCULAR HEMOGLOBIN CONC (BEAKER) (test dtok=939) 30.1 GM/DL 32.0-36.0 RED CELL DISTRIBUTION WIDTH (BEAKER) (test ijlm=178) 20.8 % 10.3-14.2 PLATELET COUNT (BEAKER) (test rnvs=603) 352 K/CU MM 150-430 MEAN PLATELET VOLUME (BEAKER) (test gzsr=373) 6.9 fL 6.5-10.5 NUCLEATED RED BLOOD CELLS (BEAKER) (test vjud=395) 0 /100 WBC 0-0 NEUTROPHILS RELATIVE PERCENT (BEAKER) (test jtsb=076) 82 % LYMPHOCYTES RELATIVE PERCENT (BEAKER) (test jquv=793) 7 % MONOCYTES RELATIVE PERCENT (BEAKER) (test bcka=484) 8 % EOSINOPHILS RELATIVE PERCENT (BEAKER) (test rsyj=198) 4 % BASOPHILS RELATIVE PERCENT (BEAKER) (test zalz=500) 0 % NEUTROPHILS ABSOLUTE COUNT (BEAKER) (test rvbm=456) 10.40 K/ L 1.80-8.00 LYMPHOCYTES ABSOLUTE COUNT (BEAKER) (test nyrg=972) 0.80 K/ L 1.48-4.50 MONOCYTES ABSOLUTE COUNT (BEAKER) (test ytib=866) 1.00 K/ L 0.00-1.30 EOSINOPHILS ABSOLUTE COUNT (BEAKER) (test ulvg=052) 0.50 K/ L 0.00-0.50 BASOPHILS ABSOLUTE COUNT (BEAKER) (test dtqk=478) 0.00 K/ L 0.00-0.20 (MANUAL DIFFERENTIAL)2016-08-03 22:53:00* Test Item Value Reference Range Comments TOTAL COUNTED (BEAKER) (test dhcw=7924) WBC MORPHOLOGY (BEAKER) (test hmlw=860) Normal LARGE PLT(BEAKER) (test uggc=6651) Present ANISOCYTOSIS (BEAKER) (test kiyh=904) 1+ few HYPOCHROMIA (BEAKER) (test sfom=009) 2+ moderate MICROCYTES (BEAKER) (test xeqw=689) 1+ few BASIC METABOLIC [id number] 22:42:00* Test Item Value Reference Range Comments SODIUM (BEAKER) (test sinh=452) 141 meq/L 135-148 POTASSIUM (BEAKER) (test hnmv=882) 3.3 meq/L 3.6-5.5 CHLORIDE (BEAKER) (test pcth=069) 110 meq/L 98-106 CO2 (BEAKER) (test etyj=033) 18 meq/L 20-29 BLOOD UREA NITROGEN (BEAKER) (test vlml=181) 9 mg/dL 10-26 CREATININE (BEAKER) (test kelq=301) 0.90 mg/dL 0.50-1.20 GLUCOSE RANDOM (BEAKER) (test jvhx=832) 150 mg/dL 70-110 CALCIUM (BEAKER) (test hijd=879) 8.5 mg/dL 8.5-10.5 EGFR (BEAKER) (test srpt=3455) 87 mL/min/1.73 sq m ESTIMATED GFR IS NOT ACCURATE CREATININE CLEARANCE IN PREDICTING GLOMERULAR FILTRATION RATE. ESTIMATED GFR IS NOT APPLICABLE FOR DIALYSIS PATIENTS. [id number] 01:41:00* Test Item Value Reference Range Comments CKMB (test code=CKMB) 0.83 ng/ml 0.00-2.37 Rpt Cardiac Panel at 90 mins after 1st set drawnTROPONIN-I Quantitative 2016-07-25 01:41:00* Test Item Value Reference Range Comments Troponin-I (test code=TROP) 0.020 ng/ml 0.000-0.034 The 99th Percentile URL is 0.034 ng/mL. The Joint Society of Cardiology/[place] [employer] (ESC/ACC) and the National Academy of Clinical Biochemistry Standards of Laboratory Practices (NACB) recommends that the diagnosis of AMI includes the presence of clinical history suggestive of Acute Coronary Syndrome (ACS) and a maximum concentration of cardiac troponin exceeding the 99th percentile of a normal reference population [upper reference limit (URL)] on at least one occasion during the first 24 hours after the clinical event. Rpt Cardiac Panel at 90 mins after 1st set [id number] 01:41:00* Test Item Value Reference Range Comments CPK (test code=CPK) 194 U/L 30-135 Rpt Cardiac Panel at 90 mins after 1st set [id number] 00:33:00* Test Item Value Reference Range Comments Glucose (test code=GLU) 105 mg/dl 75-110 BUN (test code=BUN) 10.0 mg/dl 6.0-17.0 Creatinine (test code=CREA) 0.7 mg/dl 0.4-1.2 Sodium (test code=NA) 149 mmol/l 137-145 Potassium (test code=K) 4.0 mmol/l 3.5-5.0 Chloride (test code=CL) 108 mmol/l 98-107 CO2 (test code=CO2) 25 mmol/l 22-30 Anion Gap (test code=GAP) 17 Calcium (test code=CALC) 9.2 mg/dl 8.4-10.2 T Protein (test code=TP) 7.4 gm/dl 5.1-8.7 Albumin (test code=ALB) 3.9 gm/dl 3.5-4.6 A/G Ratio (test code=AGRAT) 1.1 % 1.1-2.2 AST (SGOT) (test code=AST) 23 U/L 11-36 ALT (SGPT) (test code=ALT) 34 U/L 11-40 Alkaline Phos (test code=ALKP) 77 U/L 47-114 Total Bilirubin (test code=TBIL) 0.3 mg/dl 0.2-1.2 Globulin (test code=GLOBU) 3.5 gm/dl 2.3-3.5 Calcium, Corrected (test code=CALCCORR) 9.3 mg/dl 8.4-10.2 Various formulas exist for corrected serum calcium results, each yielding different values. This corrected result was based on the formula: Corrected Calcium=SerumCalcium + [0.8 * ( 4 - SerumAlbumin)] EGFR if (test code=EGFRAA) >60 mL/min/1.73m\S\2 EGFR if Non- (test code=EGFRNA) >60 mL/min/1.73m\S\2 Estimated Glomerular Filtration Rate (eGFR) Reference Intervals Decision Points for 18 years and older and average body mass: >=60 Does not exclude kidney disease. 30 - 59 Suggests moderate chronic kidney disease and indicates the need for further investigation including assessment of proteinuria and cardiovascular factors. < 30 Usually indicates a need for referral for assessment and management of chronic kidney failure. [id number] 00:17:00* Test Item Value Reference Range Comments CKMB (test code=CKMB) 0.74 ng/ml 0.00-2.37 [id number] 00:17:00* Test Item Value Reference Range Comments CPK (test code=CPK) 192 U/L 30-135 TROPONIN-I [id number] 00:17:00* Test Item Value Reference Range Comments Troponin-I (test code=TROP) 0.018 ng/ml 0.000-0.034 The 99th Percentile URL is 0.034 ng/mL. The [employer] Society of Cardiology/[place] [employer] (ESC/ACC) and the National Academy of Clinical Biochemistry Standards of Laboratory Practices (NACB) recommends that the diagnosis of AMI includes the presence of clinical history suggestive of Acute Coronary Syndrome (ACS) and a maximum concentration of cardiac troponin exceeding the 99th percentile of a normal reference population [upper reference limit (URL)] on at least one occasion during the first 24 hours after the clinical event. D-DIMER [id number] 00:12:00* Test Item Value Reference Range Comments D DIMER (test code=D DIM) 0.77 mg/L FEU 0.19-0.50 METHOD CHANGE: 03/29/2012 Due to the discontinued mehodology currently in use, a change in the testing method is necessary. The Reference Ranges will change dramatically, and results are obtained by the observance of clotting activation mesured on the [employer] instruments. This same methodology is currently in use for PT/INR , PTT, AND HEPARIN testing in our Labs. The D-Dimer assay is an aid in the evaluation of thromboembolic events, as in DIC, DVT, Pulmonary Embolism, and other thromboembolic diseases, and should not be used without other diagnostic measures, to properly diagnose and treat thromboembolic disease. REFERENCE RANGE: 0.19 - 0.50 mg/L FEU (Fibrinogen Equivalent Units) Cut-Off Value is: > .50 mg/L FEU Note: Results greater than (>) the Cut-Off are to be considered POSITIVE, and significant in the evaluation of thromboembolic diseases. Results less than (<) the Cut-Off are to be considered NEGATIVE, and a low probability of thromboembolic disease. PT AND [id number] 00:12:00* Test Item Value Reference Range Comments Protime (test code=PT) 10.7 seconds 9.0-11.8 INR (test code=INR) 1.0 0.9-1.1 INR results are intended ONLY to monitor Oral Anticoagulant therapy in stablized patients. The INR Therapeutic Range is 2.0 - 3.0 Patients with a mechanical heart, the INR Range is 2.5 - 3.5 [id number] 00:12:00* Test Item Value Reference Range Comments aPTT (test code=PTT) 23.6 seconds 25.3-35.7 CBC WITH AUTO [id number] 00:01:00* Test Item Value Reference Range Comments WBC (test code=WBC) 9.3 k/ul 4.8-10.8 RBC (test code=RBC) 4.00 Millions/ul 4.70-6.10 Hemoglobin (test code=HGB) 9.3 gm/dl 14.0-18.0 Hematocrit (test code=HCT) 29.2 % 42.0-50.0 MCV (test code=MCV) 72.9 fL 80.0-94.0 MCH (test code=MCH) 23.2 pg 27.0-31.0 MCHC (test code=MCHC) 31.9 gm/dl 33.0-37.0 RDW (test code=RDWVC) 20.3 % 11.5-14.5 Platelet (test code=PLT) 296 k/ul 130-400 MPV (test code=MPV) 7.4 fL 7.4-10.4 NE% (test code=NE) 68.5 % 42.0-75.0 LY% (test code=LY) 17.9 % 13.0-42.0 MO% (test code=MO) 9.6 % EO% (test code=EO) 3.7 % 1.0-3.0 BA% (test code=BA) 0.3 % 1.0-3.0 NRBC, Auto (test code=NRBC_AUTO) 0 /100WBC 0-0 TROPONIN-I [id number] 14:29:00* Test Item Value Reference Range Comments Troponin-I (test code=TROP) <0.012 ng/ml 0.000-0.034 The 99th Percentile URL is 0.034 ng/mL. The Joint Society of Cardiology/[place] [employer] (ESC/ACC) and the National Academy of Clinical Biochemistry Standards of Laboratory Practices (NACB) recommends that the diagnosis of AMI includes the presence of clinical history suggestive of Acute Coronary Syndrome (ACS) and a maximum concentration of cardiac troponin exceeding the 99th percentile of a normal reference population [upper reference limit (URL)] on at least one occasion during the first 24 hours after the clinical event. [id number] 14:13:00* Test Item Value Reference Range Comments Glucose (test code=GLU) 123 mg/dl 75-110 BUN (test code=BUN) 10.0 mg/dl 6.0-17.0 Creatinine (test code=CREA) 0.7 mg/dl 0.4-1.2 Sodium (test code=NA) 143 mmol/l 137-145 Potassium (test code=K) 3.7 mmol/l 3.5-5.0 Chloride (test code=CL) 108 mmol/l 98-107 CO2 (test code=CO2) 24 mmol/l 22-30 Calcium (test code=CALC) 9.3 mg/dl 8.4-10.2 T Protein (test code=TP) 7.4 gm/dl 5.1-8.7 Albumin (test code=ALB) 3.9 gm/dl 3.5-4.6 A/G Ratio (test code=AGRAT) 1.1 % 1.1-2.2 AST (SGOT) (test code=AST) 27 U/L 11-36 ALT (SGPT) (test code=ALT) 31 U/L 11-40 Alkaline Phos (test code=ALKP) 82 U/L 47-114 Total Bilirubin (test code=TBIL) 0.4 mg/dl 0.2-1.2 Globulin (test code=GLOBU) 3.5 gm/dl 2.3-3.5 Calcium, Corrected (test code=CALCCORR) 9.4 mg/dl 8.4-10.2 Various formulas exist for corrected serum calcium results, each yielding different values. This corrected result was based on the formula: Corrected Calcium=SerumCalcium + [0.8 * ( 4 - SerumAlbumin)] EGFR if (test code=EGFRAA) >60 mL/min/1.73m\S\2 EGFR if Non- (test code=EGFRNA) >60 mL/min/1.73m\S\2 Estimated Glomerular Filtration Rate (eGFR) Reference Intervals Decision Points for 18 years and older and average body mass: >=60 Does not exclude kidney disease. 30 - 59 Suggests moderate chronic kidney disease and indicates the need for further investigation including assessment of proteinuria and cardiovascular factors. < 30 Usually indicates a need for referral for assessment and management of chronic kidney failure. CBC WITH AUTO [id number] 13:45:00* Test Item Value Reference Range Comments WBC (test code=WBC) 7.3 k/ul 4.8-10.8 RBC (test code=RBC) 4.20 Millions/ul 4.70-6.10 Hemoglobin (test code=HGB) 9.5 gm/dl 14.0-18.0 Hematocrit (test code=HCT) 30.9 % 42.0-50.0 MCV (test code=MCV) 73.5 fL 80.0-94.0 MCH (test code=MCH) 22.7 pg 27.0-31.0 MCHC (test code=MCHC) 30.9 gm/dl 33.0-37.0 RDW (test code=RDWVC) 20.3 % 11.5-14.5 Platelet (test code=PLT) 288 10\S\3/ul 130-400 MPV (test code=MPV) 6.9 fL 7.4-10.4 NE% (test code=NE) 68.0 % 42.0-75.0 LY% (test code=LY) 17.8 % 13.0-42.0 MO% (test code=MO) 9.0 % 4.0-14.0 EO% (test code=EO) 4.5 % 1.0-3.0 BA% (test code=BA) 0.7 % 1.0-3.0 NRBC, Auto (test code=NRBC_AUTO) 0 TROPONIN-I [id number] 03:50:00* Test Item Value Reference Range Comments Troponin-I (test code=TROP) <0.012 ng/ml 0.000-0.034 The 99th Percentile URL is 0.034 ng/mL. The Joint Society of Cardiology/[place] [employer] (ESC/ACC) and the National Academy of Clinical Biochemistry Standards of Laboratory Practices (NACB) recommends that the diagnosis of AMI includes the presence of clinical history suggestive of Acute Coronary Syndrome (ACS) and a maximum concentration of cardiac troponin exceeding the 99th percentile of a normal reference population [upper reference limit (URL)] on at least one occasion during the first 24 hours after the clinical event. [id number] 03:49:00* Test Item Value Reference Range Comments Triglycerides (test code=TRIG) 109 mg/dl 0-149 Trig. Interpretation Guide: Normal: < 150 mg/dl Borderline High: 150 - 199 mg/dl High: 200 - 499 mg/dl Very High: >=500 mg/dl Cholesterol (test code=CHOL) 138 mg/dl 0-198 HDL (test code=HDL) 33 mg/dl 35-86 dLDL (test code=DILDL) 101 mg/dl 0-99 Direct LDL Intrepretations: Optimal: <100 mg/dl Suspect: 100 - 129 mg/dl Borderline: 130 - 159 mg/dl High: 160 - 189 mg/dl Very High: >190 mg/dl Risk Factor (test code=RFACT) 4.2 0.0-5.0 Risk Factor Men Women Risk Factor 3.4 3.3 1/2 Average 5.0 4.4 Average 9.6 7.1 2X Average 24.0 11.0 3X Average vLDL (test code=VLDL) 22 mg/dl 30-60 TROPONIN-I [id number] 19:38:00* Test Item Value Reference Range Comments Troponin-I (test code=TROP) <0.012 ng/ml 0.000-0.034 The 99th Percentile URL is 0.034 ng/mL. The Joint Society of Cardiology/[place] [employer] (ESC/ACC) and the National Academy of Clinical Biochemistry Standards of Laboratory Practices (NACB) recommends that the diagnosis of AMI includes the presence of clinical history suggestive of Acute Coronary Syndrome (ACS) and a maximum concentration of cardiac troponin exceeding the 99th percentile of a normal reference population [upper reference limit (URL)] on at least one occasion during the first 24 hours after the clinical event. PT AND [id number] 18:18:00* Test Item Value Reference Range Comments Protime (test code=PT) 10.5 seconds 9.0-11.8 INR (test code=INR) 1.0 0.9-1.1 INR results are intended ONLY to monitor Oral Anticoagulant therapy in stablized patients. The INR Therapeutic Range is 2.0 - 3.0 Patients with a mechanical heart, the INR Range is 2.5 - 3.5 D-DIMER [id number] 18:18:00* Test Item Value Reference Range Comments D DIMER (test code=D DIM) 0.76 mg/L FEU 0.19-0.50 METHOD CHANGE: 03/29/2012 Due to the discontinued mehodology currently in use, a change in the testing method is necessary. The Reference Ranges will change dramatically, and results are obtained by the observance of clotting activation mesured on the [employer] instruments. This same methodology is currently in use for PT/INR , PTT, AND HEPARIN testing in our Labs. The D-Dimer assay is an aid in the evaluation of thromboembolic events, as in DIC, DVT, Pulmonary Embolism, and other thromboembolic diseases, and should not be used without other diagnostic measures, to properly diagnose and treat thromboembolic disease. REFERENCE RANGE: 0.19 - 0.50 mg/L FEU (Fibrinogen Equivalent Units) Cut-Off Value is: > .50 mg/L FEU Note: Results greater than (>) the Cut-Off are to be considered POSITIVE, and significant in the evaluation of thromboembolic diseases. Results less than (<) the Cut-Off are to be considered NEGATIVE, and a low probability of thromboembolic disease. [id number] 18:18:00* Test Item Value Reference Range Comments aPTT (test code=PTT) 22.3 seconds 25.3-35.7 VERIFIED BY REPEAT ANALYSIS/KA PRO-BNP(B-Type Natriuretic Peptide)2016-07-21 18:16:00* Test Item Value Reference Range Comments Pro-BNP(B-Peptide) (test code=PROBNP) 214 pg/ml 0-125 TROPONIN-I [id number] 18:16:00* Test Item Value Reference Range Comments Troponin-I (test code=TROP) <0.012 ng/ml 0.000-0.034 The 99th Percentile URL is 0.034 ng/mL. The Joint Society of Cardiology/[place] [employer] (ESC/ACC) and the National Academy of Clinical Biochemistry Standards of Laboratory Practices (NACB) recommends that the diagnosis of AMI includes the presence of clinical history suggestive of Acute Coronary Syndrome (ACS) and a maximum concentration of cardiac troponin exceeding the 99th percentile of a normal reference population [upper reference limit (URL)] on at least one occasion during the first 24 hours after the clinical event. LIPASE, [id number] 18:10:00* Test Item Value Reference Range Comments Lipase (test code=LIPA) 65 U/L 8-223 [id number] 18:10:00* Test Item Value Reference Range Comments Magnesium (test code=MG) 1.7 mg/dl 1.6-2.3 [id number] 18:10:00* Test Item Value Reference Range Comments Glucose (test code=GLU) 98 mg/dl 75-110 BUN (test code=BUN) 10.0 mg/dl 6.0-17.0 Creatinine (test code=CREA) 0.8 mg/dl 0.4-1.2 Sodium (test code=NA) 145 mmol/l 137-145 Potassium (test code=K) 4.2 mmol/l 3.5-5.0 Chloride (test code=CL) 106 mmol/l 98-107 CO2 (test code=CO2) 27 mmol/l 22-30 Anion Gap (test code=GAP) 13 Calcium (test code=CALC) 8.3 mg/dl 8.4-10.2 T Protein (test code=TP) 6.6 gm/dl 5.1-8.7 Albumin (test code=ALB) 3.4 gm/dl 3.5-4.6 A/G Ratio (test code=AGRAT) 1.1 % 1.1-2.2 AST (SGOT) (test code=AST) 34 U/L 11-36 ALT (SGPT) (test code=ALT) 39 U/L 11-40 Alkaline Phos (test code=ALKP) 76 U/L 47-114 Total Bilirubin (test code=TBIL) 0.4 mg/dl 0.2-1.2 Globulin (test code=GLOBU) 3.2 gm/dl 2.3-3.5 Calcium, Corrected (test code=CALCCORR) 8.8 mg/dl 8.4-10.2 Various formulas exist for corrected serum calcium results, each yielding different values. This corrected result was based on the formula: Corrected Calcium=SerumCalcium + [0.8 * ( 4 - SerumAlbumin)] EGFR if (test code=EGFRAA) >60 mL/min/1.73m\S\2 EGFR if Non- (test code=EGFRNA) >60 mL/min/1.73m\S\2 Estimated Glomerular Filtration Rate (eGFR) Reference Intervals Decision Points for 18 years and older and average body mass: >=60 Does not exclude kidney disease. 30 - 59 Suggests moderate chronic kidney disease and indicates the need for further investigation including assessment of proteinuria and cardiovascular factors. < 30 Usually indicates a need for referral for assessment and management of chronic kidney failure. URINALYSIS WITH [id number] 17:52:00* Test Item Value Reference Range Comments Color (test code=UCOLR) Lt. Yellow Clarity (test code=UCLAR) CLEAR Glucose (test code=UGLUC) NEGATIVE NEGATIVE Bilirubin (test code=UBILI) NEGATIVE NEGATIVE Ketones (test code=UKET) NEGATIVE NEGATIVE Specific [place] (test code=USPGR) 1.015 1.005-1.030 Blood (test code=UBLD) NEGATIVE NEGATIVE PH (test code=UPH) 6.0 4.5-8.0 Protein (test code=UPROT) NEGATIVE NEGATIVE Urobilinogen (test code=U UROB) >=8.0 >0.2 Nitrite (test code=UNITR) NEGATIVE NEGATIVE Leukocyte Esterase (test code=ULEUK) NEGATIVE NEGATIVE WBC (test code=WBCUR) 0-3 0-5 RBC (test code=RBCUR) 0-2 0-5 Epithial Cells (test code=U EPI) 5-10 0-10 Mucous (test code=UMUC) Trace None Seen Bacteria (test code=UBACT) Trace None Seen,Trace CBC WITH AUTO [id number] 17:41:00* Test Item Value Reference Range Comments WBC (test code=WBC) 8.5 k/ul 4.8-10.8 RBC (test code=RBC) 3.71 Millions/ul 4.70-6.10 Hemoglobin (test code=HGB) 8.5 gm/dl 14.0-18.0 Hematocrit (test code=HCT) 27.0 % 42.0-50.0 MCV (test code=MCV) 72.6 fL 80.0-94.0 MCH (test code=MCH) 23.0 pg 27.0-31.0 MCHC (test code=MCHC) 31.7 gm/dl 33.0-37.0 RDW (test code=RDWVC) 20.3 % 11.5-14.5 Platelet (test code=PLT) 282 k/ul 130-400 MPV (test code=MPV) 7.0 fL 7.4-10.4 NE% (test code=NE) 68.5 % 42.0-75.0 LY% (test code=LY) 17.2 % 13.0-42.0 MO% (test code=MO) 7.8 % EO% (test code=EO) 5.8 % 1.0-3.0 BA% (test code=BA) 0.7 % 1.0-3.0 NRBC, Auto (test code=NRBC_AUTO) 0 /100WBC 0-0 Troponin (Emerg Dept Use Only)2016-07-19 13:00:00* Test Item Value Reference Range Comments Troponin (Emerg Dept Use Only) (test code=TROPED) < 0.03 <0.03 Comment Bed:4HEMOGLOBIN & [id number] 08:41:00* Test Item Value Reference Range Comments HGB (test code=HBG) 8.9 g/dL 14.0-18.0 HCT (test code=HCT) 29.5 % 35.0-46.0 CBC WITH MANUAL [id number] 06:48:00* Test Item Value Reference Range Comments WBC (test code=WBC) 7.8 10\S\3/uL 4.5-11.0 RBC (test code=RBC) 3.28 10\S\6/uL 4.20-5.60 HGB (test code=HBG) 7.7 g/dL 14.0-18.0 HCT (test code=HCT) 25.7 % 35.0-46.0 MCV (test code=MCV) 78.4 fL 80.0-94.0 MCH (test code=MCH) 23.5 pg 27.0-31.0 MCHC (test code=MCHC) 30.0 g/dL 32.0-36.0 RDW (test code=RDW) 17.9 % 11.5-14.5 PLT (test code=PLT) 268 10\S\3/uL 130-400 MPV (test code=MPV) 9.1 fL 9.4-12.4 NEUTROP # (test code=NE#) 4.8 10\S\3/uL 2.0-8.0 LYMPH # (test code=LY#) 1.5 10\S\3/uL 1.2-4.0 MONOCYTE # (test code=MO#) 0.7 10\S\3/uL 0.0-1.1 EOSINOPH # (test code=EO#) 0.6 10\S\3/uL 0.0-0.7 BASOPHIL # (test code=BA#) 0.1 10\S\3/uL 0.0-0.3 IG # (test code=IG#) 0.06 10\S\3/uL 0.00-0.06 NRBC # (test code=NRBC#) 0.00 10\S\3/uL 0.00-0.01 NEUTROPH % (test code=NE%) 61.4 % 35.0-73.0 LYMPH % (test code=LY%) 19.7 % 20.0-55.0 MONO % (test code=MO%) 9.5 % 2.5-10.0 EOSINOPH % (test code=EO%) 8.0 % 0.0-5.0 BASOPHIL % (test code=BA%) 0.6 % 0.0-2.0 IG % (test code=IG%) 0.8 % 0.0-0.8 NRBC% (test code=NRBC%) 0.0 % 0.0-0.2 MAN DIFF (test code=HMDIFF) MANUAL DIFFERENTIAL SEG (test code=SEG) 63 % 42-75 BAND (test code=BAND) 0 % 0-8 LYMPH (test code=LYMPH) 20 % 20-51 MONO (test code=MONO) 10 % 3-11 EOS (test code=EOS) 7 % <=10 BASO (test code=BASO) 0 % 0-2 RBC MORPH (test code=RBCMORN) ABNORMAL NORMAL PLT EST (test code=PLTEST) ADEQUATE ADEQUATE PLT MORPH (test code=PLTMOR) NORMAL (1.5-3 um) NORMAL ANISO (test code=ANISO) 1+ NONE HYPOCHROM (test code=HYPOC) 1+ NONE MICROCYTIC (test code=MICRO) 1+ NONE BASIC METABOLIC [id number] 05:56:00* Test Item Value Reference Range Comments GLUCOSE (test code=06D) 232 mg/dL 75-100 SODIUM (test code=01A) 140 mmol/L 136-145 POTASSIUM (test code=01B) 3.2 mmol/L 3.6-5.1 CHLORIDE (test code=04A) 103 mmol/L 98-107 CO2 (test code=02A) 27 mmol/L 22-32 ANION GAP (test code=ANG) 13.2 mmol/L BUN (test code=05D) 9 mg/dL 7-18 CREATININE (test code=03E) 0.8 mg/dL 0.7-1.3 BUN/CREA R (test code=BCR) 12 12-20 CALCIUM (test code=09D) 7.5 mg/dL 8.3-9.5 BASIC METABOLIC [id number] 07:23:00* Test Item Value Reference Range Comments GLUCOSE (test code=06D) 260 mg/dL 75-100 SODIUM (test code=01A) 140 mmol/L 136-145 POTASSIUM (test code=01B) 3.5 mmol/L 3.6-5.1 CHLORIDE (test code=04A) 103 mmol/L 98-107 CO2 (test code=02A) 29 mmol/L 22-32 ANION GAP (test code=ANG) 11.5 mmol/L BUN (test code=05D) 11 mg/dL 7-18 CREATININE (test code=03E) 0.9 mg/dL 0.7-1.3 BUN/CREA R (test code=BCR) 12 12-20 CALCIUM (test code=09D) 8.0 mg/dL 8.3-9.5 VANCOMYCIN [id number] 07:10:00* Test Item Value Reference Range Comments VANC TROGH (test code=VANCT) 11.1 ug/dL 10.0-20.0 CBC WITH MANUAL [id number] 06:49:00* Test Item Value Reference Range Comments WBC (test code=WBC) 8.0 10\S\3/uL 4.5-11.0 RBC (test code=RBC) 3.88 10\S\6/uL 4.20-5.60 HGB (test code=HBG) 9.0 g/dL 14.0-18.0 HCT (test code=HCT) 29.8 % 35.0-46.0 MCV (test code=MCV) 76.8 fL 80.0-94.0 MCH (test code=MCH) 23.2 pg 27.0-31.0 MCHC (test code=MCHC) 30.2 g/dL 32.0-36.0 RDW (test code=RDW) 18.2 % 11.5-14.5 PLT (test code=PLT) 281 10\S\3/uL 130-400 MPV (test code=MPV) 9.0 fL 9.4-12.4 NEUTROP # (test code=NE#) 4.9 10\S\3/uL 2.0-8.0 LYMPH # (test code=LY#) 1.5 10\S\3/uL 1.2-4.0 MONOCYTE # (test code=MO#) 0.8 10\S\3/uL 0.0-1.1 EOSINOPH # (test code=EO#) 0.8 10\S\3/uL 0.0-0.7 BASOPHIL # (test code=BA#) 0.1 10\S\3/uL 0.0-0.3 IG # (test code=IG#) 0.04 10\S\3/uL 0.00-0.06 NRBC # (test code=NRBC#) 0.00 10\S\3/uL 0.00-0.01 NEUTROPH % (test code=NE%) 60.9 % 35.0-73.0 LYMPH % (test code=LY%) 18.5 % 20.0-55.0 MONO % (test code=MO%) 9.8 % 2.5-10.0 EOSINOPH % (test code=EO%) 9.7 % 0.0-5.0 BASOPHIL % (test code=BA%) 0.6 % 0.0-2.0 IG % (test code=IG%) 0.5 % 0.0-0.8 NRBC% (test code=NRBC%) 0.0 % 0.0-0.2 MAN DIFF (test code=HMDIFF) MANUAL DIFFERENTIAL SEG (test code=SEG) 63 % 42-75 BAND (test code=BAND) 0 % 0-8 LYMPH (test code=LYMPH) 19 % 20-51 MONO (test code=MONO) 10 % 3-11 EOS (test code=EOS) 8 % <=10 BASO (test code=BASO) 0 % 0-2 RBC MORPH (test code=RBCMORN) ABNORMAL NORMAL PLT EST (test code=PLTEST) ADEQUATE ADEQUATE PLT MORPH (test code=PLTMOR) NORMAL (1.5-3 um) NORMAL ANISO (test code=ANISO) 1+ NONE HYPOCHROM (test code=HYPOC) 1+ NONE MICROCYTIC (test code=MICRO) 1+ NONE VANCOMYCIN [id number] 05:07:00* Test Item Value Reference Range Comments DEEPTHI ALLEN (test code=VANCT) 5.0 ug/dL 10.0-20.0 U/S [id number] 15:21:03 PICC LINE PLACEMENT Location code: [id number] HISTORY: Need for central venous access. PROCEDURE: Written informed consent was obtained. The patient was brought [facility] fluoroscopy suite. The right upper extremity was sterilely prepped anddraped. All elements of maximal sterile barrier technique followed.Preliminary ultrasound demonstrated a patent and compressible right brachialvein. Access was achieved under real-time ultrasound guidance and a sonographicimage was documented in the medical record demonstrating such. Routineexchange was made and ultimately a dual lumen PICC line was trimmed at 40 cm, placed through the peel away sheath, and advanced to the atriocaval junctionunder fluoroscopic guidance. A spot fluoroscopic image confirmed central location. The catheter was secured to the skin and a bandage was applied. The patient tolerated the procedure well and there were no immediatecomplications. Total fluoroscopy time was 30 seconds.IMPRESSION: Successful ultrasound and fluoroscopic guided placement of a right upperextremity PICC line. The catheter is ready for immediate use.XR PICC LINE INSERTION [id number] 15:21:03 PICC LINE PLACEMENT Location code: [id number] HISTORY: Need for central venous access. PROCEDURE: Written informed consent was obtained. The patient was brought tot fluoroscopy suite. The right upper extremity was sterilely prepped anddraped. All elements of maximal sterile barrier technique followed.Preliminary ultrasound demonstrated a patent and compressible right brachialvein. Access was achieved under real-time ultrasound guidance and a sonographicimage was documented in the medical record demonstrating such. Routineexchange was made and ultimately a dual lumen PICC line was trimmed at 40 cm, placed through the peel away sheath, and advanced to the atriocaval junctionunder fluoroscopic guidance. A spot fluoroscopic image confirmed central location. The catheter was secured to the skin and a bandage was applied. The patient tolerated the procedure well and there were no immediatecomplications. Total fluoroscopy time was 30 seconds.IMPRESSION: Successful ultrasound and fluoroscopic guided placement of a right upperextremity PICC line. The catheter is ready for immediate use.BASIC METABOLIC [id number] 12:25:00* Test Item Value Reference Range Comments GLUCOSE (test code=06D) 274 mg/dL 75-100 SODIUM (test code=01A) 133 mmol/L 136-145 POTASSIUM (test code=01B) 3.7 mmol/L 3.6-5.1 CHLORIDE (test code=04A) 103 mmol/L 98-107 CO2 (test code=02A) 20 mmol/L 22-32 ANION GAP (test code=ANG) 13.7 mmol/L BUN (test code=05D) 15 mg/dL 7-18 CREATININE (test code=03E) 0.9 mg/dL 0.7-1.3 BUN/CREA R (test code=BCR) 17 12-20 CALCIUM (test code=09D) 8.2 mg/dL 8.3-9.5 CBC (INCLUDES AUTOMATED DIFFERENTIAL)2016-07-01 11:56:00* Test Item Value Reference Range Comments WBC (test code=WBC) 7.7 10\S\3/uL 4.5-11.0 RBC (test code=RBC) 4.27 10\S\6/uL 4.20-5.60 HGB (test code=HBG) 9.9 g/dL 14.0-18.0 HCT (test code=HCT) 34.0 % 35.0-46.0 MCV (test code=MCV) 79.6 fL 80.0-94.0 MCH (test code=MCH) 23.2 pg 27.0-31.0 MCHC (test code=MCHC) 29.1 g/dL 32.0-36.0 RDW (test code=RDW) 18.3 % 11.5-14.5 PLT (test code=PLT) 286 10\S\3/uL 130-400 MPV (test code=MPV) 9.0 fL 9.4-12.4 NEUTROP # (test code=NE#) 5.5 10\S\3/uL 2.0-8.0 LYMPH # (test code=LY#) 0.8 10\S\3/uL 1.2-4.0 MONOCYTE # (test code=MO#) 0.7 10\S\3/uL 0.0-1.1 EOSINOPH # (test code=EO#) 0.6 10\S\3/uL 0.0-0.7 BASOPHIL # (test code=BA#) 0.1 10\S\3/uL 0.0-0.3 IG # (test code=IG#) 0.03 10\S\3/uL 0.00-0.06 NRBC # (test code=NRBC#) 0.00 10\S\3/uL 0.00-0.01 NEUTROPH % (test code=NE%) 72.2 % 35.0-73.0 LYMPH % (test code=LY%) 10.3 % 20.0-55.0 MONO % (test code=MO%) 8.7 % 2.5-10.0 EOSINOPH % (test code=EO%) 7.7 % 0.0-5.0 BASOPHIL % (test code=BA%) 0.7 % 0.0-2.0 IG % (test code=IG%) 0.4 % 0.0-0.8 NRBC% (test code=NRBC%) 0.0 % 0.0-0.2 MANDIFF (test code=MDIFF) NO NO RBC MORPH (test code=RBCMOR) NORMAL ALCOHOL BLOOD (ETOH)2016-06-28 21:25:00* Test Item Value Reference Range Comments ALCOHOL (test code=56A) <10 mg/dL <=10 Ref Range Change (test code=REF RANGE) Please note the change in reference range [id number] 21:21:00* Test Item Value Reference Range Comments ACETAMINPH (test code=94M) <2.0 ug/mL 10.0-30.0 AMYLASE AND [id number] 21:21:00* Test Item Value Reference Range Comments AMYLASE (test code=10A) 56 U/L 28-100 LIPASE (test code=60A) 158 IU/L 73-393 XR CHEST 1 VIEW [id number] 21:00:37EXAM: Portable chest one view.Location code:R 16HISTORY: Chest painCOMPARISON: 06/10/2016COMMENT: Portable AP view of the chest was obtained. The lungs and pleuralspaces are clear. Lungs are normally expanded. The aorta, pulmonaryvasculature and mediastinum are within normal limits. Cardiac silhouette isnormal in size and contour. Visualized skeletal structures are unremarkable.IMPRESSION: No active disease in the chest.CARDIAC [id number] 21:00:00* Test Item Value Reference Range Comments TROPONIN I (test code=A84) <0.015 ng/mL 0.000-0.045 CKMB (test code=A49) 1.2 ng/mL <=3.6 CPK (test code=32A) 267 IU/L 39-308 PRO TIME AND [id number] 20:59:00* Test Item Value Reference Range Comments PT (test code=TT) 21.0 s 9.8-13.6 INR (test code=INR) 1.9 INRH (test code=INRH) SUGGESTED THERAPEUTIC RANGE FOR INR: 2.5 - 3.5 For Patients with Prosthetic Valves or Patients with recurrent Thromboembolic Events 2.0 - 3.0 For Most Other Applications PTT (test code=PTT) 42.7 s 20.2-38.0 PTTH (test code=PTTH) To monitor the effectiveness of heparin, we offer the Anti-Xa (Heparin Assay). It can be used for either unfractinated or LMW Heparin. Order Code is ANTI-XA [id number] 20:56:00* Test Item Value Reference Range Comments SALICYLATE (test code=94B) <1.7 mg/dL 2.8-20.0 BASIC METABOLIC [id number] 20:54:00* Test Item Value Reference Range Comments GLUCOSE (test code=06D) 107 mg/dL 75-100 SODIUM (test code=01A) 135 mmol/L 136-145 POTASSIUM (test code=01B) 3.4 mmol/L 3.6-5.1 CHLORIDE (test code=04A) 100 mmol/L 98-107 CO2 (test code=02A) 29 mmol/L 22-32 ANION GAP (test code=ANG) 9.4 mmol/L BUN (test code=05D) 15 mg/dL 7-18 CREATININE (test code=03E) 0.9 mg/dL 0.7-1.3 BUN/CREA R (test code=BCR) 16 12-20 CALCIUM (test code=09D) 8.3 mg/dL 8.3-9.5 DRUGS OF [id number] 20:50:00* Test Item Value Reference Range Comments DRUG SCRN (test code=HDOA) URINE DRUG SCREEN This is an unconfirmed screening result and should not be used for non-medical purposes CANNABINOD (test code=88C) Negative NEGATIVE AMPHETHETM (test code=84A) Negative NEGATIVE BENZODIAZP (test code=86A) Negative NEGATIVE BARBITURAT (test code=85A) Negative NEGATIVE OPIATES (test code=92B) Negative NEGATIVE COCAINE (test code=87A) Negative NEGATIVE PHENCYCLID (test code=66A) Negative NEGATIVE METHADONE (test code=64A) Negative NEGATIVE DOAH (test code=DOAH) URINE DRUG SCREEN Cut-off values are as follows: Cannabinoids 50 ng/mL Cocaine 300 ng/mL Amphetamines 1000 ng/mL Phencyclidine 25 ng/mL Benzodiazepines 200 ng.mL Methadone 300 ng/mL Barbiturates 200 ng/mL Opiates 2000 ng/mL CBC (INCLUDES AUTOMATED DIFFERENTIAL)2016-06-28 20:47:00* Test Item Value Reference Range Comments WBC (test code=WBC) 11.7 10\S\3/uL 4.5-11.0 RBC (test code=RBC) 4.36 10\S\6/uL 4.20-5.60 HGB (test code=HBG) 10.0 g/dL 14.0-18.0 HCT (test code=HCT) 33.1 % 35.0-46.0 MCV (test code=MCV) 75.9 fL 80.0-94.0 MCH (test code=MCH) 22.9 pg 27.0-31.0 MCHC (test code=MCHC) 30.2 g/dL 32.0-36.0 RDW (test code=RDW) 18.1 % 11.5-14.5 PLT (test code=PLT) 276 10\S\3/uL 130-400 MPV (test code=MPV) 9.4 fL 9.4-12.4 NEUTROP # (test code=NE#) 9.0 10\S\3/uL 2.0-8.0 LYMPH # (test code=LY#) 1.3 10\S\3/uL 1.2-4.0 MONOCYTE # (test code=MO#) 1.1 10\S\3/uL 0.0-1.1 EOSINOPH # (test code=EO#) 0.3 10\S\3/uL 0.0-0.7 BASOPHIL # (test code=BA#) 0.0 10\S\3/uL 0.0-0.3 IG # (test code=IG#) 0.04 10\S\3/uL 0.00-0.06 NRBC # (test code=NRBC#) 0.00 10\S\3/uL 0.00-0.01 NEUTROPH % (test code=NE%) 76.3 % 35.0-73.0 LYMPH % (test code=LY%) 11.3 % 20.0-55.0 MONO % (test code=MO%) 9.2 % 2.5-10.0 EOSINOPH % (test code=EO%) 2.6 % 0.0-5.0 BASOPHIL % (test code=BA%) 0.3 % 0.0-2.0 IG % (test code=IG%) 0.3 % 0.0-0.8 NRBC% (test code=NRBC%) 0.0 % 0.0-0.2 MANDIFF (test code=MDIFF) NO NO RBC MORPH (test code=RBCMOR) NORMAL TROPONIN [id number] 14:00:00* Test Item Value Reference Range Comments TROPONIN I (BEAKER) (test anre=976) < ng/mL 0.00-0.15 Troponin I (TnI) levels must be interpreted in the context of the presenting sym ptoms and the clinical findings. Elevated TnI levels indicate myocardial damage, but are not specific for ischemic heart disease. Elevated TnI levels are seen in patients with other cardiac conditions (including myocarditis and congestive h eart failure), and slight TnI elevations occur in patients with other conditions , including sepsis, renal failure, acidosis, acute neurological disease, and per sistent tachyarrhythmia.CREATINE KINASE (CK)2016-06-17 13:56:00* Test Item Value Reference Range Comments CREATINE KINASE TOTAL (BEAKER) (test lflq=568) 403 U/L 40-250 CREATINE KINASE (CK), TOTAL AND [id number] 22:39:00* Test Item Value Reference Range Comments CREATINE KINASE TOTAL (BEAKER) (test rjmp=254) 190 U/L 30-300 CREATINE KINASE-MB (BEAKER) (test lada=498) 1.6 ng/mL 0.0-4.9 CREATINE KINASE-MB INDEX (BEAKER) (test esdm=986) 0.8 % CK-MB Reference Range:<5 Normal5-10 Borderline>10 AbnormalURINALYSIS W/ [id number] 22:09:00* Test Item Value Reference Range Comments COLOR (BEAKER) (test qttf=627) Light Yellow CLARITY (BEAKER) (test yegf=294) Clear SPECIFIC GRAVITY UA (BEAKER) (test awxo=112) 1.008 1.001-1.035 PH UA (BEAKER) (test oslv=208) 6.0 5.0-8.0 PROTEIN UA (BEAKER) (test buni=062) Negative Negative GLUCOSE UA (BEAKER) (test jpsy=229) Negative Negative KETONES UA (BEAKER) (test bsdh=514) Negative Negative BILIRUBIN UA (BEAKER) (test rpeo=361) Negative Negative BLOOD UA (BEAKER) (test iklq=245) Negative Negative NITRITE UA (BEAKER) (test lnop=632) Negative Negative LEUKOCYTE ESTERASE UA (BEAKER) (test dood=693) Small Negative UROBILINOGEN UA (BEAKER) (test dpkh=773) < mg/dL 0.2-1.0 RBC UA (BEAKER) (test ksdq=624) < /HPF WBC UA (BEAKER) (test dyak=815) 5 /HPF BACTERIA (BEAKER) (test xcle=943) Rare SOURCE(BEAKER) (test kuuy=9998) TROPONIN [id number] 21:50:00* Test Item Value Reference Range Comments TROPONIN I (BEAKER) (test vszs=716) 0.01 ng/mL 0.00-0.15 Troponin I (TnI) levels must be interpreted in the context of the presenting sym ptoms and the clinical findings. Elevated TnI levels indicate myocardial damage, but are not specific for ischemic heart disease. Elevated TnI levels are seen in patients with other cardiac conditions (including myocarditis and congestive h eart failure), and slight TnI elevations occur in patients with other conditions , including sepsis, renal failure, acidosis, acute neurological disease, and per sistent tachyarrhythmia.BASIC METABOLIC [id number] 21:42:00* Test Item Value Reference Range Comments SODIUM (BEAKER) (test zdfq=160) 138 meq/L 135-148 POTASSIUM (BEAKER) (test ufil=540) 4.1 meq/L 3.5-5.5 CHLORIDE (BEAKER) (test ekiq=927) 105 meq/L 98-106 CO2 (BEAKER) (test ocbw=307) 21 meq/L 20-31 BLOOD UREA NITROGEN (BEAKER) (test mgii=724) 14 mg/dL 10-26 CREATININE (BEAKER) (test rggn=194) 0.91 mg/dL 0.50-1.20 GLUCOSE RANDOM (BEAKER) (test ntrf=225) 113 mg/dL 70-110 CALCIUM (BEAKER) (test ncni=072) 9.0 mg/dL 8.5-10.5 EGFR (BEAKER) (test ozso=3651) 86 mL/min/1.73 sq m ESTIMATED GFR IS NOT ACCURATE CREATININE CLEARANCE IN PREDICTING GLOMERULAR FILTRATION RATE. ESTIMATED GFR IS NOT APPLICABLE FOR DIALYSIS PATIENTS. CBC W/PLT COUNT & AUTO [id number] 21:10:00* Test Item Value Reference Range Comments WHITE BLOOD CELL COUNT (BEAKER) (test otfn=613) 8.3 K/ L 4.0-10.0 RED BLOOD CELL COUNT (BEAKER) (test pcec=654) 4.24 M/ L 4.20-5.80 HEMOGLOBIN (BEAKER) (test jrpk=400) 9.8 GM/DL 13.0-16.8 HEMATOCRIT (BEAKER) (test jjcr=471) 31.4 % 40.0-50.0 MEAN CORPUSCULAR VOLUME (BEAKER) (test tkdm=081) 74.1 fL 82.0-98.0 MEAN CORPUSCULAR HEMOGLOBIN (BEAKER) (test myhd=726) 23.2 pg 27.0-33.0 MEAN CORPUSCULAR HEMOGLOBIN CONC (BEAKER) (test eten=164) 31.3 GM/DL 32.0-36.0 RED CELL DISTRIBUTION WIDTH (BEAKER) (test wufy=833) 17.9 % 12.0-15.0 PLATELET COUNT (BEAKER) (test ajmc=824) 331 K/CU MM 150-430 MEAN PLATELET VOLUME (BEAKER) (test hfxl=755) 6.7 fL 6.5-10.5 NUCLEATED RED BLOOD CELLS (BEAKER) (test defq=769) 0 /100 WBC 0-0 NEUTROPHILS RELATIVE PERCENT (BEAKER) (test eqyp=675) 69 % LYMPHOCYTES RELATIVE PERCENT (BEAKER) (test bsjz=141) 18 % MONOCYTES RELATIVE PERCENT (BEAKER) (test lbqf=558) 8 % EOSINOPHILS RELATIVE PERCENT (BEAKER) (test wtoy=141) 5 % BASOPHILS RELATIVE PERCENT (BEAKER) (test gdok=290) 0 % NEUTROPHILS ABSOLUTE COUNT (BEAKER) (test cgdm=007) 5.70 K/ L 1.80-8.00 LYMPHOCYTES ABSOLUTE COUNT (BEAKER) (test mnkf=406) 1.50 K/ L 1.48-4.50 MONOCYTES ABSOLUTE COUNT (BEAKER) (test iror=758) 0.70 K/ L 0.00-1.30 EOSINOPHILS ABSOLUTE COUNT (BEAKER) (test smpt=297) 0.40 K/ L 0.00-0.50 BASOPHILS ABSOLUTE COUNT (BEAKER) (test fptt=230) 0.00 K/ L 0.00-0.20 CARDIAC PROFILE 2016-06-10 18:59:00* Test Item Value Reference Range Comments TROPONIN I (test code=A84) <0.015 ng/mL 0.000-0.045 CKMB (test code=A49) <1.0 ng/mL <=3.6 CPK (test code=32A) 165 IU/L 39-308 BASIC METABOLIC PANEL 2016-06-10 18:54:00* Test Item Value Reference Range Comments GLUCOSE (test code=06D) 101 mg/dL 75-100 SODIUM (test code=01A) 138 mmol/L 136-145 POTASSIUM (test code=01B) 3.4 mmol/L 3.6-5.1 CHLORIDE (test code=04A) 106 mmol/L 98-107 CO2 (test code=02A) 23 mmol/L 22-32 ANION GAP (test code=ANG) 12.4 mmol/L BUN (test code=05D) 18 mg/dL 7-18 CREATININE (test code=03E) 0.9 mg/dL 0.7-1.3 BUN/CREA R (test code=BCR) 20 12-20 CALCIUM (test code=09D) 9.1 mg/dL 8.3-9.5 DRUGS OF ABUSE 2016-06-10 18:51:00* Test Item Value Reference Range Comments DRUG SCRN (test code=HDOA) URINE DRUG SCREEN This is an unconfirmed screening result and should not be used for non-medical purposes CANNABINOD (test code=88C) Negative NEGATIVE AMPHETHETM (test code=84A) Negative NEGATIVE BENZODIAZP (test code=86A) Negative NEGATIVE BARBITURAT (test code=85A) Negative NEGATIVE OPIATES (test code=92B) Negative NEGATIVE COCAINE (test code=87A) Negative NEGATIVE PHENCYCLID (test code=66A) Negative NEGATIVE METHADONE (test code=64A) Negative NEGATIVE DOAH (test code=DOAH) URINE DRUG SCREEN Cut-off values are as follows: Cannabinoids 50 ng/mL Cocaine 300 ng/mL Amphetamines 1000 ng/mL Phencyclidine 25 ng/mL Benzodiazepines 200 ng.mL Methadone 300 ng/mL Barbiturates 200 ng/mL Opiates 2000 ng/mL PRO TIME AND PTT *WW*2016-06-10 18:50:00* Test Item Value Reference Range Comments PT (test code=TT) 12.3 s 9.8-13.6 INR (test code=INR) 1.1 INRH (test code=INRH) SUGGESTED THERAPEUTIC RANGE FOR INR: 2.5 - 3.5 For Patients with Prosthetic Valves or Patients with recurrent Thromboembolic Events 2.0 - 3.0 For Most Other Applications PTT (test code=PTT) 26.9 s 20.2-38.0 PTTH (test code=PTTH) To monitor the effectiveness of heparin, we offer the Anti-Xa (Heparin Assay). It can be used for either unfractinated or LMW Heparin. Order Code is ANTI-XA CBC (INCLUDES AUTOMATED DIFFERENTIAL)*[id number] 18:42:00* Test Item Value Reference Range Comments WBC (test code=WBC) 11.1 10\S\3/uL 4.5-11.0 RBC (test code=RBC) 4.25 10\S\6/uL 4.20-5.60 HGB (test code=HBG) 9.9 g/dL 14.0-18.0 HCT (test code=HCT) 32.2 % 35.0-46.0 MCV (test code=MCV) 75.8 fL 80.0-94.0 MCH (test code=MCH) 23.3 pg 27.0-31.0 MCHC (test code=MCHC) 30.7 g/dL 32.0-36.0 RDW (test code=RDW) 17.0 % 11.5-14.5 PLT (test code=PLT) 346 10\S\3/uL 130-400 MPV (test code=MPV) 8.7 fL 9.4-12.4 NEUTROP # (test code=NE#) 7.7 10\S\3/uL 2.0-8.0 LYMPH # (test code=LY#) 2.1 10\S\3/uL 1.2-4.0 MONOCYTE # (test code=MO#) 1.0 10\S\3/uL 0.0-1.1 EOSINOPH # (test code=EO#) 0.3 10\S\3/uL 0.0-0.7 BASOPHIL # (test code=BA#) 0.0 10\S\3/uL 0.0-0.3 IG # (test code=IG#) 0.09 10\S\3/uL 0.00-0.06 NRBC # (test code=NRBC#) 0.00 10\S\3/uL 0.00-0.01 NEUTROPH % (test code=NE%) 69.0 % 35.0-73.0 LYMPH % (test code=LY%) 18.7 % 20.0-55.0 MONO % (test code=MO%) 8.7 % 2.5-10.0 EOSINOPH % (test code=EO%) 2.4 % 0.0-5.0 BASOPHIL % (test code=BA%) 0.4 % 0.0-2.0 IG % (test code=IG%) 0.8 % 0.0-0.8 NRBC% (test code=NRBC%) 0.0 % 0.0-0.2 MANDIFF (test code=WMDIFF) NO NO RBC MORPH (test code=WRBCMOR) NORMAL XR CHEST 1 VIEW PORTABLE *WW*2016-06-10 18:27:12Exam: Chest portable erectLocation: [id number]: chest painComparison: 02/25/2016.Findings:The lungs are clear. No infiltrate or effusion is seen. The pulmonaryvasculature is normal. The heart size is normal. The mediastinal silhouette isunremarkable. The bony thorax is intact.Impression:No acute disease.[id number] 13:24:00* Test Item Value Reference Range Comments %CKMB (test code=%MB) 0.5 % CKMB (test code=CKMB) 1.8 NG/ML 0.22-2.4 CK (test code=CK) 330 U/L 55-170 CKINTERP (test code=CKINTERP) NEGATIVE Negative TROPONIN I - [id number] 13:24:00* Test Item Value Reference Range Comments TROP-I (test code=TROP-I) <0.012 ng/ml 0.012-0.033 INTERPRETIVE DATA A TROPONIN OF LESS THAN 0.034 NG/ML IS CONSIDERED NEGATIVE A TROPONIN OF 0.034 - 0.119 NG/ML IS CONSIDERED GRAYZONE A TROPONIN=/> 0.120 NG/ML IS CONSIDERED POSITIVE [id number] 07:29:00* Test Item Value Reference Range Comments %CKMB (test code=%MB) 0.4 % CKMB (test code=CKMB) 1.4 NG/ML 0.22-2.4 CK (test code=CK) 352 U/L 55-170 CKINTERP (test code=CKINTERP) NEGATIVE Negative TROPONIN I - [id number] 07:29:00* Test Item Value Reference Range Comments TROP-I (test code=TROP-I) 0.024 ng/ml 0.012-0.033 INTERPRETIVE DATA A TROPONIN OF LESS THAN 0.034 NG/ML IS CONSIDERED NEGATIVE A TROPONIN OF 0.034 - 0.119 NG/ML IS CONSIDERED GRAYZONE A TROPONIN=/> 0.120 NG/ML IS CONSIDERED POSITIVE PROBRAIN NATRIURETIC [id number] 07:29:00* Test Item Value Reference Range Comments NT-PROBNP (test code=PROBNP) 39 pg/mL Exclusion for heart failure for patients of all ages is 300 pg/mL. Inclusion for heart failure for patients age <50 is 450 pg/mL; for patients age 50-75 is 900 pg/mL; for patients age >75 is 1800 pg/ mL. TROPONIN I - [id number] 00:42:00* Test Item Value Reference Range Comments TROP-I (test code=TROP-I) 0.027 ng/ml 0.012-0.033 INTERPRETIVE DATA A TROPONIN OF LESS THAN 0.034 NG/ML IS CONSIDERED NEGATIVE A TROPONIN OF 0.034 - 0.119 NG/ML IS CONSIDERED GRAYZONE A TROPONIN=/> 0.120 NG/ML IS CONSIDERED POSITIVE [id number] 00:41:00* Test Item Value Reference Range Comments %CKMB (test code=%MB) 0.4 % CKMB (test code=CKMB) 1.5 NG/ML 0.22-2.4 CK (test code=CK) 367 U/L 55-170 CKINTERP (test code=CKINTERP) NEGATIVE Negative MYOCARD IMAGING, MULTI, PHARM, [id number] 13:13:00Reason for exam:->Chest painFINAL REPORT PROCEDURE: Myocardial Perfusion Imaging with Pharmacologic StressINDICATION: Reason for pharmacologic stress is chest pain.PROTOCOL:This was a two day study and the imaging sequence was Rest/Stress. Tomographic (SPECT) myocardial perfusion imaging was performed at rest 81 minutes after the intravenous injection of 22.2 mCi Tc-99m sestamibi. During Lexiscan (regadenoson) stress, the patient was injected with 27.1 mCi Tc- 99m sestamibi intravenously. Gated post-stress imaging was performed 157 minutes after stress.Pharmacologic stress testing was performed with the intravenous injection of 0.4 mg Lexiscan within 30 seconds. The patients heart rate went from 63 beats/minute at rest to 92 beats/minute during stress. The blood pressure went from 113/61 mm Hg at rest to 115/59 mm Hg during stress, which is a normal response to pharmacologic stress. The patient did not complain of chest pain at rest. The patient did not complain of chest pain during stress. The resting electrocardiogram (ECG) showed sinus rhythm and did not demonstrate ST-segment changes during stress. FINDINGS:The overall quality of the study is good. Perfusion SPECT images at rest and stress show inhomogenous tracer distribution in the left ventricular myocardium. No areas of ischemia identified. The left ventricular (LV) cavity appears normal. The right ventricular (RV) cavity appears normal. The left ventricular ejection fraction (EF) is normal at 60%.Gated SPECT images show normal LV wall motion and thickening. IMPRESSION:Normal myocardial perfusion stress test. Overall left ventricular function is normal without regional wall motion abnormalities. Signed: Keith Shafer MDReport Verified Date/Time: 10/05/2015 13:11:57 Reading Location: [facility] Pulmonary Dictation Room T SINGLE (PORTABLE) [place] [address] Patient Name: FELECIA ASTORGA MR #: [id number] : 1960 Age/Sex: 56/M Req #: [id number] Adm Physician: VERITO HERNANDEZ MD Ordered by: ALYSSA PHILLIPS MD Report #: [id number] Location: [facility] Room/Bed: [place] [address] Procedure: [id number] DX/CHEST SINGLE (PORTABLE) Exam Date: 02/07/17 Exam Time: 1405 REPORT STATUS: Signed PROCEDURE: CHEST SINGLE (PORTABLE) C OMPARISON: None. INDICATIONS: CHEST PAIN FINDINGS: LUNGS: No con solidations or edema. PLEURA: No effusions or pneumothorax. HEART T MEDIASTINUM: The heart is within normal size-limits. BONES T S OFT TISSUES: No acute findings. Metallic needle fragment overlies the left s houlder lateral to the greater tuberosity of the humerus. CONCLUSION: No acute thoracic abnormality. Delmy Ashby D.O. Dicta grecia by: Delmy Ashby D.O. on 02/07/2017 at 14:36 Electronically approv ed by: Delmy Ashby D.O. on 02/07/2017 at 14:36 Dictated By : DELMY ASHBY DO 1436 Transcribed By: SUSAN on 02/07/17 1436 COPY TO: ALYSSA PHILLIPS MD
--- OUTSIDE RECORDS SUMMARY | 2019-04-24 21:10 | XMS REPORT | Continuity of Care Document ---
Author Author [facility] Address Unknown Phone Unavailable Care Team Providers Care Vessel Welder Name Role Phone UNKNOWN, UNKNOWN Unavailable Unavailable Insurance Providers Payer Name Policy Number Subscriber Name Relationship MEDICAID - HMO [id number] FELECIA ASTORGA SELF/SAME PATIENT Advance Directives Directive Response Recorded Date/Time Code Status FULL CODE 04/13/18 2:36am Advance Directive? N 04/13/18 4:16am Living Will? N 04/13/18 4:16am Health Care Proxy? N 04/13/18 4:16am Healthcare Power of Retail Operations Specialist? N 04/13/18 4:16am Is the patient an Organ Donor? N 04/13/18 0:36am Chief Complaint and Reason for Visit Reason for Visit MINOR HEAD INJURY; ATYPICAL CHEST PAIN; SYNCOPE; H Problems Active Medical Problems Problem Onset Date Recorded Date Status Atypical chest pain Unknown 02/12/15 Active Malingering Unknown 02/12/15 Active Atypical chest pain Unknown 02/12/15 Active Malingering Unknown 02/12/15 Active Homeless Unknown 02/12/15 Active Syncope Unknown 04/13/18 Active Minor head injury Unknown 04/13/18 Active Medications Current Home Medications Medication Dose Units Route Directions Days/Qty Instructions Start Date Clopidogrel Bisulfate (PLAVIX 75 MG TAB) 75 MG TAB 75 MG By Mouth EVERY DAY @ 0900 Social History Problem Response Recorded Date Confucianist/Cultural Preferences: DENOMINATIONAL 04/13/18 Recreational drugs? N 04/13/18 Alcohol? N 04/13/18 Query Response Start Date Stop Date Smoking Status: Never Smoker Hospital Discharge Instructions No hospital discharge instructions. Plan of Care Discharge Date 04/18/18 Disposition ELOPED Instructions/Education Provided DI for Syncope in Adults (Fainting) DI for Atypical Chest Pain Prescriptions See Medications Section Functional Status Query Response Date Recorded Speech Pattern: Normal April 18, 2018 9:00am Seizure Act.? N April 17, 2018 9:00am Sensory/Motor Response: Normal April 14, 2018 9:00am RUE Strength: Normal April 17, 2018 9:00am LUE Strength: Normal April 17, 2018 9:00am RLE Strength: Normal April 17, 2018 9:00am LLE Strength: Normal April 17, 2018 9:00am Gait: Normal April 17, 2018 9:00am WNL?+ N April 18, 2018 9:00am Person: N April 17, 2018 9:00am Place: N April 17, 2018 9:00am Time: N April 17, 2018 9:00am Situation: N April 17, 2018 9:00am LOC: Alert April 18, 2018 9:00am Allergies, Adverse Reactions, Alerts Allergen Type Severity Reaction Status Last Updated Acetaminophen Allergy Unknown Active 02/12/15 Aspirin Allergy Unknown Active 02/12/15 Penicillins Allergy Unknown Active 12/26/16 NSAID Allergy Unknown Active 02/12/15 Immunizations Name Date Given Type Flu vaccine this seaso Y Historical Estimated Date: 02/21/18 Historical Pneumonia Vaccine last 5 years? Y Historical Estimated Date: 02/21/18 Historical Vital Signs Vital Reading Collection Date/Time Result Blood Pressure 04/18/18 12:00pm 131/74 Blood Pressure Source 04/18/18 4:00am Auto Cuff Temperature 04/18/18 8:00am 97.1 F Temperature Source 04/17/18 8:00pm Oral Respiratory Rate 04/18/18 12:00pm 18 Pulse Rate 04/18/18 12:02pm 80 Pulse Location 04/18/18 4:00am Monitor Bedside Pulse Oximetry 04/18/18 12:00pm 93 Height 04/17/18 6:00am 5 ft 5 in Height 04/17/18 6:00am 165.1 cm Weight 04/17/18 6:00am 280 lb Weight 04/17/18 6:00am 126.807 kg Body Mass Index 04/17/18 6:00am 46.5 kg/m2 Results Laboratory Results Test Name Result Units Flags Reference Collection Date/Time Result Date/Time Comments White Blood Count 7.2 K/uL 4.8-10.8 04/17/18 4:58am 04/17/18 5:29am Red Blood Count 4.33 M/uL L 4.70-6.00 04/17/18 4:58am 04/17/18 5:29am Hemoglobin 10.8 g/dL L 13.5-17.5 04/17/18 4:58am 04/17/18 5:29am Hematocrit 33.7 % L 42.0-52.0 04/17/18 4:58am 04/17/18 5:29am Mean Corpuscular Volume 77.9 fl L 80.0-100.0 04/17/18 4:58am 04/17/18 5:29am Mean Corpuscular Hemoglobin 24.9 pg L 27.0-31.0 04/17/18 4:58am 04/17/18 5:29am Mean Corpuscular Hgb Concent Diff 31.9 g/dL L 32.0-36.0 04/17/18 4:58am 04/17/18 5:29am Red Cell Distribution Width 17.9 % H 11.5-14.5 04/17/18 4:58am 04/17/18 5:29am Platelet Count 267 K/uL 130-400 04/17/18 4:58am 04/17/18 5:29am Mean Platelet Volume 7.1 fl 04/17/18 4:58am 04/17/18 5:29am Granulocytes (%) 55.2 % 50.0-75.0 04/17/18 4:58am 04/17/18 5:29am Lymphocytes % 18.2 % L 20.0-40.0 04/17/18 4:58am 04/17/18 5:29am Monocytes % 12.2 % 0.0-15.0 04/17/18 4:58am 04/17/18 5:29am Eosinophils % 13.0 % H 0.0-10.0 04/17/18 4:58am 04/17/18 5:29am Basophils % 1.4 % 0.0-2.0 04/17/18 4:58am 04/17/18 5:29am Granulocytes # 3.9 K/uL 1.8-6.4 04/17/18 4:58am 04/17/18 5:29am Lymphocytes # 1.3 K/uL 1.2-3.6 04/17/18 4:58am 04/17/18 5:29am Monocytes # 0.9 K/uL 0.3-0.9 04/17/18 4:58am 04/17/18 5:29am Eosinophils # 0.9 K/ul H 0.0-0.5 04/17/18 4:58am 04/17/18 5:29am Basophils # 0.1 K/uL 0.0-0.2 04/17/18 4:58am 04/17/18 5:29am Manual Differential NO 04/17/18 4:58am 04/17/18 5:29am Sodium Level 135 mmol/L 135-144 04/17/18 4:58am 04/17/18 5:40am Potassium Level 3.4 mmol/L L 3.5-5.1 04/17/18 4:58am 04/17/18 5:40am Chloride Level 95 mmol/L L 101-111 04/17/18 4:58am 04/17/18 5:40am Carbon Dioxide Level 28 mmol/L 22-32 04/17/18 4:58am 04/17/18 5:40am Anion Gap 15.4 mmol/L 10-20 04/17/18 4:58am 04/17/18 5:40am Glucose Level 152 mg/dL H 65-99 04/17/18 4:58am 04/17/18 5:40am Prediabetes 100 to 125 mg/dl Diabetes 126 mg/dl or higher Prediabetes refers to individuals with plasma glucose levels intermediate between those considered normal and those considered diabetic and is also referred to as impaired glucose tolerance (IGT) or impaired fasting glucose (IFG). Blood Urea Nitrogen 28 mg/dL H 8-26 04/17/18 4:58am 04/17/18 5:40am Creatinine 0.9 mg/dL 0.61-1.24 04/17/18 4:58am 04/17/18 5:40am EGFR Note 112.4 59.3-175.8 04/17/18 4:58am 04/17/18 5:40am eGFR (Estimated Glomerular Filtration Rate) eGFR calculation value obtained using the [facility] Quadratic (MCQ) equation. The reportable reference range is recommended to be greater than 60 ml/min/1.73m. This is an estimation of the patient's GFR and clinical correlation is recommended. This eGFR calculation does not account for race. This result may differ from other equations available. Calcium Level 8.4 mg/dL L 8.9-10.3 04/17/18 4:58am 04/17/18 5:40am Albumin 3.4 g/dL L 3.5-5.0 04/17/18 4:58am 04/17/18 5:40am Total Bilirubin 0.5 mg/dL 0.2-1.2 04/17/18 4:58am 04/17/18 5:40am Alkaline Phosphatase 83 IU/L 32-91 04/17/18 4:58am 04/17/18 5:40am Total Protein 7.3 g/dL 6.5-8.1 04/17/18 4:58am 04/17/18 5:40am Alanine Aminotransferase (ALT/SGPT) 23 IU/L 7-55 04/17/18 4:58am 04/17/18 5:40am Aspartate Amino Transf (AST/SGOT) 24 IU/L 15-41 04/17/18 4:58am 04/17/18 5:40am Globulin 3.9 g/dL H 2.3-3.5 04/17/18 4:58am 04/17/18 5:40am Albumin/Globulin Ratio 0.9 L 1.2-2.2 04/17/18 4:58am 02/25/19 5:40am Urine Color YELLOW YELLOW 04/13/18 10:20pm 04/13/18 10:25pm Urine Appearance CLEAR CLEAR 04/13/18 10:20pm 04/13/18 10:25pm Urine Glucose NEGATIVE mg/dL NEGATIVE 04/13/18 10:20pm 04/13/18 10:25pm Urine Bilirubin NEGATIVE NEGATIVE 04/13/18 10:20pm 04/13/18 10:25pm Urine Ketones NEGATIVE NEGATIVE 04/13/18 10:20pm 04/13/18 10:25pm Urine Specific [place] <=1.005 1.002-1.030 04/13/18 10:20pm 04/13/18 10:25pm Urine Blood TRACE A NEGATIVE 04/13/18 10:20pm 04/13/18 10:25pm Urine pH 6.5 4.5-8.0 04/13/18 10:20pm 04/13/18 10:25pm Urine Protein NEGATIVE mg/dL NEGATIVE 04/13/18 10:20pm 04/13/18 10:25pm Urine Urobilinogen 0.2 E.U./dL 0.2 04/13/18 10:20pm 04/13/18 10:25pm Urine Nitrite NEGATIVE NEGATIVE 04/13/18 10:20pm 04/13/18 10:25pm Urine Leukocyte Esterase NEGATIVE NEGATIVE 04/13/18 10:20pm 04/13/18 10:25pm Urine Microscopic Indicated YES NO 04/13/18 10:20pm 04/13/18 10:25pm Urine RBC 0-2 /hpf 0-2 04/13/18 10:20pm 04/13/18 10:31pm Urine WBC 0-2 /hpf 0-2 04/13/18 10:20pm 04/13/18 10:31pm Urine Epithelial Cells 0-2 /hpf 0-2 04/13/18 10:20pm 04/13/18 10:31pm Urine Bacteria NEGATIVE /hpf NEG 04/13/18 10:20pm 04/13/18 10:31pm Troponin I < 0.01 ng/mL 0.00-0.03 04/13/18 10:15pm 04/13/18 11:10pm Troponin I-Interpretation Reference : <0.03 ng/mL NEGATIVE 0.04 - 0.49 ng/mL EQUIVOCAL =OR > 0.5 ng/mL CONSISTENT WITH ACUTE MYOCARDIAL INJURY 98% of confirmed AMI patients will have at least one value in a set or serial specimens >0.50 ng/ml. 99% of normals are between 0.0 - 0.10 ng/ml. Serial samples on a patient that are all <0.10 ng/ml effectively rules out AMI. Persistently increased troponin I values that are above the upper limit of normal but below the threshold for AMI indicate mycardial injury but not necessarily an ischemic mechanism of injury. Troponin Important Points 1. Troponin is specific for myocardial injury but not for AMI. Elevated troponin levels above the upper limit of normal but below the AMI cutoff may be present in cardiac injury other then AMI and represent some degree of risk. 2. Elevated troponin levels inconsistent with patient history or clinical condition should be considered a sign to investigate for other cardiac conditions. 3. Serial sampling is critical for accurate diagnosis. N/A CALCULATE BELOW 04/13/18 5:41am 04/13/18 12:48pm CORONARY HEART DISEASE (CHD) RISK FACTORS: +1, Age (y): Men, >45 Women, >55 or Premature Menopause Without Estrogen Therapy +1, Family History of Premature CHD +1, Current Cigarette Smoking +1, Hypertension +1, Low HDL-C: <40 mg/dL -1, High HDL-C: 60 mg/dL or More Total RFs CHD Risk Equivalents (REq): Diabetes Other Forms of Atherosclerotic Disease Lipid testing of hospitalized patients may be inaccurate due to fluctuations from the patients normal metabolic state. Accurate triglyceride and LDL testing requires a fasting specimen. If non-fasting cholesterol > qt=635 mg/dL or HDL is < 40 mg/dL, fasting lipid panel is recommended. Repeat testing recommended prior to treatment. Desirable Levels Cholesterol Level 164 mg/dL 0-200 04/13/18 5:41am 04/13/18 1:41pm Triglycerides Level 239 mg/dL H 10-150 04/13/18 5:41am 04/13/18 1:41pm Normal triglycerides: <150 mg/dL Borderline-high triglycerides: 150-199 mg/dL High triglycerides: 200-499 mg/dL Very high triglycerides: > rk=406 mg/dL HDL Cholesterol 34.6 mg/dL L 40-130 04/13/18 5:41am 04/13/18 1:41pm N/A 4.7 0.0-5.0 04/13/18 5:41am 04/13/18 1:41pm LDL Cholesterol (Measured) 107 mg/dL 0-130 04/13/18 5:41am 04/13/18 1:41pm *LDL Cholesterol <130 mg/dL, No CHD or CHD Risk Equivalent <100 mg/dL, With CHD or CHD Risk Equivalent LDL Cholesterol Therapeutic Goal: 100 mg/dL or Less if CHD or CHD Risk Equivalent Present <130 mg/dL if No CHD or REq; 2 or more Risk Factors <160 mg/dL if No CHD or REq; 0-1 Risk Factors Reference: ATP III, [place], 285:24, 4753-14, 2001. Hemoglobin A1c Percent 7.3 % H 4.0-5.6 04/13/18 5:41am 04/13/18 1:40pm Prediabetes 5.7% to 6.4% Diabetes 6.5% or higher Elevated levels of HbA1c suggest the need for more aggressive treatment of glycemia. The [place] [employer] recommends that a primary goal of therapy should be a HbA1c of <7% and that physicians should reevaluate the treatment regimen in patients with HbA1c values consistently >8%. N/A 160 mg/dL 04/13/18 5:41am 04/13/18 1:40pm A1C Result% Estimated Avg.Glucose (EAG) 6.0% 126 mg/dL 6.5% 140 mg/dL 7.0% 154 mg/dL 7.5% 169 mg/dL 8.0% 183 mg/dL 8.5% 197 mg/dL 9.0% 212 mg/dL 9.5% 226 mg/dL 10.0% 240 mg/dL Reference: caroline Wagner, Diabetes Care 31: 1437, 2008. Thyroid Stimulating Hormone (TSH) 6.41 uIU/mL H 0.34-5.6 04/13/18 5:41am 04/13/18 1:41pm Prothrombin Time 12.0 SECONDS 10.0-12.9 04/13/18 1:34am 04/13/18 1:52am INR International Normalized Ratio 1.1 0.91-1.15 04/13/18 1:34am 04/13/18 1:52am THE INR IS TO BE USED ONLY FOR MONITORING ORAL ANTICOAGULANT THERAPY. INDICATION INR VALUE 1. Prophylaxis of venous thrombosis 2.0-3.0 (high-risk surgery) Treatment of venous thrombosis Treatment of PE Prevention of systemic embolism Tissue heart valves AMI (to prevent systemic embolism) Valvular heart disease Atrial fibrillation Bileaflet mechanical valve in aortic position 2. Mechanical prosthetic heart valves (high risk) 2.5-3.5 Thrombosis and Antiphospholipid syndrome Prevention of recurrent [place] Sixth ACCP Consensus Conference on Antithrombotic Therapy, Chest 2001; 119:Supplement 8-21. Activated Partial Thromboplast Time 30.1 SECONDS 25.1-36.5 04/13/18 1:34am 04/13/18 1:52am Creatine Kinase 221 IU/L 49-397 04/13/18 1:34am 04/13/18 1:55am Creatine Kinase MB 3.15 ng/ML 0.6-6.3 04/13/18 1:34am 04/13/18 2:05am Myoglobin 78 ug/mL 17.4-106.0 04/13/18 1:34am 04/13/18 2:05am B-Type Natriuretic Peptide 51 pg/mL 0-100 04/13/18 1:34am 04/13/18 2:07am Procedures Procedure Status Date Provider(s) CBCA W/PLT & AUTO DIFFERENTIAL Completed 04/13/18 IMMARAJ,PREMSWARUP COMPREHENSIVE METABOLIC PANEL Completed 04/13/18 IMMARAJ,PREMSWARUP ROUTINE URINALYSIS Completed 04/13/18 IMMARAJ,PREMSWARUP PROTIME Completed 04/13/18 IMMARAJ,PREMSWARUP PTT Completed 04/13/18 IMMARAJ,PREMSWARUP CARDIAC MARKERS PANEL (ER) Completed 04/13/18 IMMARAJ,PREMSWARUP BNP RAPID Completed 04/13/18 IMMARAJ,PREMSWARUP TROPONIN I Completed 04/13/18 IMMARAJ,PREMSWARUP TROPONIN I Completed 04/13/18 IMMARAJ,PREMSWARUP TROPONIN I Completed 04/13/18 IMMARAJ,PREMSWARUP A1C Completed 04/13/18 AURELIO,DAINA JESSE ABBA LIPID PANEL Completed 04/13/18 AURELIO,DAINA JESSE ABBA THYROID STIMULATING HORMONE Completed 04/13/18 AURELIO,DAINA JESSE ABBA BASIC METABOLIC PANEL Completed 04/14/18 AURELIO,DAINA JESSE ABBA CBCA W/PLT & AUTO DIFFERENTIAL Completed 04/14/18 AURELIO,DAINA JESSE ABBA BASIC METABOLIC PANEL Completed 04/15/18 AURELIO,DAINA JESSE ABBA CBCA W/PLT & AUTO DIFFERENTIAL Completed 04/15/18 AURELIO,DAINA JESSE ABBA CBCA W/PLT & AUTO DIFFERENTIAL Completed 04/16/18 SHAHANA GRAY COMPREHENSIVE METABOLIC PANEL Completed 04/16/18 SHAHANA GRAY CBCA W/PLT & AUTO DIFFERENTIAL Completed 04/17/18 SHAHANA GRAY COMPREHENSIVE METABOLIC PANEL Completed 04/17/18 SHAHANA GRAY BASIC METABOLIC PANEL Active 04/18/18 AURELIO,DAINA JESSE ABBA CBCA W/PLT & AUTO DIFFERENTIAL Active 04/19/18 AURELIO,DAINA JESSE ABBA BASIC METABOLIC PANEL Active 04/19/18 AURELIO,DAINA JESSE ABBA CHEST 1 VIEW (AP) Completed 04/13/[address],PREMS[address]ARUP [address] BRAIN W/O CONTRAST Completed 04/13/18 IMMARAJ,PREMSWARUP ECHO W SPECTRAL & COLOR DOPLR Active 04/13/18 DAINA CAREY US CAROTIDS BI LAT Completed 04/13/18 DAINA CAREY RIGHT HAND 2 VIEW Completed 04/13/18 DAINA CAREY Encounters Encounter Location Arrival/Admit Date Discharge/Depart Date Attending Provider Discharged Inpatient [facility] 04/12/18 11:51pm 04/18/18 3:02pm KEN WICK Encounter Diagnosis Onset Date Atypical chest pain Homeless Syncope Minor head injury
--- OUTSIDE RECORDS SUMMARY | 2019-04-24 21:11 | XMS REPORT | Summary of Care ---
Author Author [facility] - Health Organization [facility] - Health Address Unknown Phone Unavailable Care Team Providers Care Sales Facilitator Name Role Phone Mj Chow MD Unavailable Pcp, Patient Does Not Have A PCP Reason for Visit * Reason Comments Transition Of Care Encounter Details Care Team Description Date Type Department Yady Escalera, YESENIA [phone] Transition Of Care 04/06/2019 Transition of [facility] Allergies Comments Active Allergy Reactions Severity Noted Date Acetaminophen Rash High 09/03/2010 Naproxen Sodium Nausea and/or High 01/05/2014 Vomiting Aspirin Rash, Unknown High 09/03/2010 - See comments stiff Codeine Unknown - See High 01/05/2014 comments Body stiffness Haloperidol Lactate Rash Low 02/19/2008 Ibuprofen Hives, High 09/03/2010 Swelling "My throat swells up and closes." Nitroglycerin Anaphylaxis 09/03/2010 Stiffness. Penicillins Unknown - See High 09/19/2015 comments Sulfa (Sulfonamide Rash Low 12/01/2016 Antibiotics) Tramadol Hives 08/25/2017 documented as of this encounter (statuses as of 04/06/2019) Medications End Date Status Medication Sig Dispensed Refills Start Date Active clopidogreL 75 mg Take 1 tablet 30 tablet 11 tabletIndications: Chest by mouth 0 pain in adult daily. Active ferrous sulfate 325 mg Take 1 tablet 30 tablet 2 (65 mg iron) by mouth 0 tabletIndications: Chest daily. pain in adult Active atorvastatin 10 mg Take 1 tablet 30 tablet 1 tabletIndications: Chest by mouth at 0 pain in adult bedtime. documented as of this encounter (statuses as of 04/06/2019) Active Problems Problem Noted Date Familial hypercholesterolemia 04/04/2019 History of Helicobacter pylori infection 04/04/2019 History of [place] (myocardial infarction) 04/04/2019 Intermittent explosive disorder in adult 04/04/2019 Traumatic brain injury 04/04/2019 Obesity (BMI 30-39.9) 01/20/2019 Impulse control disorder 03/02/2017 Overview: Last Assessment & Plan: Impulse control disorder in adult with MR. No evidence at this point for schizophrenia or bipolar. No medications needed. Best treatment for Impulse control disorder is protected living environment with group therapy and monitoring. No need to PEC at this time. Stop PEC and 1:1 sitter. Discharge to group home if needed. Drug rash 11/29/2016 Overview: Overview: 10/08/2016 Urticarial reaction w/ gross edema entire hands, lower lip and bilateral jaw/chin area w/ erythema, nausea, and c/o's throat swelling probably due to Dilantin. Patient notes he has been getting Dilantin for 2 months?? Chart allergies include Dilantin "rash". Dilantin d/c'd w Keppra 1000mg PO BID initiated per Dr. Caputo due to tonic clonic seizure disorder. Last Assessment & Plan: Rash that developed tear of the bilateral hands and bilateral feet. This is likely due to Bactrim or ibuprofen, as the patient has a stated allergy to ibuprofen, but seemed to tolerate this well in the emergency department. Both of these medications have been discontinued. He received a dose of IV Benadryl, and p.o. Benadryl is also been ordered. Rash appears improved today and is mostly macular between his fingers of both hands and laterally on the dorsal lateral aspect of his bilateral feet medially and laterally in between some of his toes. He also has a rash in his groin but more likely represents tinea which appears improved as well. Significant interval improvement at the time of discharge. History of DVT (deep vein thrombosis) 10/08/2016 Munchausen syndrome 10/08/2016 Overview: Overview: See [facility] records. Psych Eval--- on 09/24/2016 Type 2 diabetes mellitus without complication 10/07/2016 Overview: Overview: sliding scale insulin per patient Morbid obesity with body mass index of 40.0-49.9 01/05/2016 Morbid obesity with body mass index of 50 or higher 01/05/2016 Depression 08/04/2015 History of suicide attempt 07/20/2015 Overview: Overview: Attempted to slit wrist Benign essential HTN 03/02/2015 Hypertension 03/02/2015 Perianal irritation 12/18/2014 Atypical chest pain 12/17/2014 Severe recurrent major depressive disorder with psychotic features 11/12/2014 History of GI bleed 05/29/2014 Overview: Overview: 06/08/2014 Chest pain 01/05/2014 Intellectual disability 10/12/2012 Nausea 07/19/2011 Presence of coronary angioplasty implant and graft 01/14/2011 Overview: Overview: [facility] 04/08/2010 LAD 80% occlusion. Pt states he also got stented 12/01 at [place], though reports not available Overview: Overview: [facility] 04/08/2010 LAD 80% occlusion. Pt states he also got stented 12/01 at [place], though reports not available Gastroesophageal reflux disease 12/21/2010 Hyperlipidemia 12/21/2010 Grand mal seizure disorder 11/21/2010 Overview: Overview: 10/07/2016 Allergic to Dilantin. Seizure disorder 11/21/2010 Coronary arteriosclerosis in [place] artery 09/20/2010 Overview: Last Assessment & Plan: No further complaints of chest pain. Serial cardiac enzymes negative. Patient a poor historian but states he had a stent placed and is supposed to be on Plavix therapy. We will continue Plavix for now. Previous attempts to locate the physician that he mentioned placed stents in his coronary arteries about 4 weeks ago have been unsuccessful. Please see history and physical for details. Low suspicion for ACS. Patient gravely disabled and history considered unreliable. Alcohol dependence in remission 06/20/2010 Personality disorder 06/20/2010 Schizophrenia 04/13/2010 documented as of this encounter (statuses as of 04/06/2019) Immunizations Name Administration Dates Next Due Influenza Virus Vaccine 04/02/2010 Pneumococcal 05/16/2010 Polysaccharide, PPSV23 (PNEUMOVAX) documented as of this encounter Social History Date Tobacco Use Types Packs/Day Years Used Never Smoker Smokeless Tobacco: Former User Drinks/Week oz/Week Comments Alcohol Use No Financial Resource Strain Answer Date Recorded How hard is it for you to pay for the very basics Somewhat hard 01/20/2019 like food, housing, medical care, and heating? Sex Assigned at Date Recorded Not on file Industry Job Start Date Occupation Not on file Not on file Not on file Travel End Travel History Travel Start No recent travel history available. documented as of this encounter Last Filed Vital Signs Not on filedocumented in this encounter Plan of Treatment Health Maintenance Due Date Last Done Comments HEPATITIS C (HCV) SCREEN 1958 EYE EXAM 1968 URINE MICROALBUMIN 1968 DTaP,Tdap,and Td Vaccines 1969 (1 - Tdap) FOOT EXAM 1976 COLONOSCOPY 2008 Zoster Recombinant 2008 Vaccine (SHINGRIX) (1 of 2) INFLUENZA VACCINE (#1) 2018 04/02/2010 HgA1C 10/03/2019 04/04/2019, 01/20/2019, 03/29/2018, Additional history exists LDL-C 01/21/2020 01/20/2019, 03/29/2018, 08/25/2017, Additional history exists CREATININE (SERUM) 04/05/2020 04/05/2019, 04/05/2019, 04/04/2019, Additional history exists PNEUMOCOCCAL 0-64 YEARS Completed 05/16/2010 COMBINED SERIES documented as of this encounter Implants Device Identifier Shelf Expiration Date Model / Serial / Lot Implanted Type Area Manufactur er Stent STENT Heart documented as of this encounter Results Not on filedocumented in this encounter
--- OUTSIDE RECORDS SUMMARY | 2019-04-24 21:11 | XMS REPORT | Summary of Care ---
Author Author [facility] - Health Organization [facility] - Health Address Unknown Phone Unavailable Care Team Providers Care Appeals Reviewer Veteran Name Role Phone Mj Chow MD Unavailable Pcp, Patient Does Not Have A PCP Reason for Visit * Reason Comments Transition Of Care Encounter Details Care Team Description Date Type Department Yady Escalera, YESENIA [phone] Transition Of Care 04/06/2019 Transition of [facility] Allergies Comments Active Allergy Reactions Severity [...] of Helicobacter pylori infection 04/04/2019 History of [place] (myocardial infarction) 04/04/2019 Intermittent explosive disorder in [...] Stop PEC and 1:1 sitter. Discharge to [facility] if needed. Drug rash 11/29/2016 Overview: Overview: [...] angioplasty implant and graft 01/14/2011 Overview: Overview: [facility] 04/08/2010 LAD 80% occlusion. Pt states he also got stented 12/01 at [place], though reports not available Overview: Overview: [facility] 04/08/2010 LAD 80% occlusion. Pt states he also got stented 12/01 at [place], though reports not available Gastroesophageal reflux disease 12/21/2010 Hyperlipidemia 12/21/2010 Grand mal seizure disorder 11/21/2010 Overview: Overview: 10/07/2016 Allergic to Dilantin. Seizure disorder 11/21/2010 Coronary arteriosclerosis in [place] artery 09/20/2010 Overview: Last Assessment & Plan: [...]
--- OUTSIDE RECORDS SUMMARY | 2019-04-24 21:11 | XMS REPORT | Summary of Care ---
Author Author [facility] - Health Organization [facility] - Health Address Unknown Phone Unavailable Care Team Providers Care Infrastructure Developer Name Role Phone Mj Chow MD Unavailable Corrine Cruz PCP Reason for Visit * Reason Comments Chest Pain Encounter Details Care Team Description Date Type Department Radha Boss, DO [address] [address] [place] [address] 03/21/2019 Emergency [facility] [address] [place] [address] Allergies Comments Active Allergy Reactions Severity Noted Date Acetaminophen Rash High 09/03/2010 Naproxen Sodium Nausea and/or High 01/05/2014 Vomiting Aspirin Rash, Unknown High 09/03/2010 - See comments stiff Codeine Unknown - See High 01/05/2014 comments Ibuprofen Hives, High 09/03/2010 Swelling Stiffness. Penicillins Unknown - See High 09/19/2015 comments Tramadol Hives 08/25/2017 documented as of this encounter (statuses as of 03/21/2019) Medications No known medicationsdocumented as of this encounter (statuses as of 03/21/2019) Active Problems Problem Noted Date Obesity (BMI 30-39.9) 01/20/2019 History of DVT (deep vein thrombosis) 10/08/2016 Morbid obesity with body mass index of 40.0-49.9 01/05/2016 Morbid obesity with body mass index of 50 or higher 01/05/2016 Perianal irritation 12/18/2014 Atypical chest pain 12/17/2014 Severe recurrent major depressive disorder with psychotic features 11/12/2014 Chest pain 01/05/2014 Intellectual disability 10/12/2012 Nausea 07/19/2011 Coronary arteriosclerosis in [place] artery 09/20/2010 Overview: Last Assessment & Plan: [...] considered unreliable. Alcohol dependence in remission 06/20/2010 documented as of this encounter (statuses as of 03/21/2019) Immunizations Name Administration Dates Next Due Influenza Virus Vaccine 04/02/2010 Pneumococcal 05/16/2010 Polysaccharide, PPSV23 (PNEUMOVAX) documented as of this encounter Social History Date Tobacco Use Types Packs/Day Years Used Former Smoker Smokeless Tobacco: Former User Drinks/Week oz/Week [...] of this encounter Last Filed Vital Signs Reading Time Taken Comments Vital Sign 150/74 03/21/2019 9:37 PM CATERING CHEF Blood Pressure 74 03/21/2019 9:37 PM CATERING CHEF Pulse 37 C (98.6 F) 03/21/2019 9:37 PM CATERING CHEF Temperature 16 03/21/2019 9:37 PM CATERING CHEF Respiratory Rate 99% 03/21/2019 9:37 PM CATERING CHEF Oxygen Saturation - - Inhaled Oxygen Concentration 95.7 kg (211 lb) 03/21/2019 9:37 PM CATERING CHEF Weight 165.1 cm (5' 5") 03/21/2019 9:37 PM CATERING CHEF Height 35.11 03/21/2019 9:37 PM CATERING CHEF Body Mass Index documented in this encounter Plan of Treatment Health Maintenance Due Date Last Done Comments HEPATITIS C (HCV) SCREEN 1958 DTaP,Tdap,and Td Vaccines 1969 (1 - Tdap) COLONOSCOPY 2008 Zoster Recombinant 2008 Vaccine (SHINGRIX) (1 of 2) LUNG CANCER SCREEN: 08/25/2018 08/25/2017, 12/17/2014 Recommended for age 55-80 with 30 + pack year history INFLUENZA VACCINE (#1) 2018 04/02/2010 PNEUMOCOCCAL 0-64 YEARS Completed 05/16/2010 COMBINED SERIES documented as of this encounter Implants Device Identifier Shelf Expiration Date Model / Serial / Lot Implanted Type Area Manufactur er Stent STENT Heart documented as of this encounter Results Not on filedocumented in this encounter
--- OUTSIDE RECORDS SUMMARY | 2019-04-24 21:11 | XMS REPORT | Summary of Care ---
Author Author [facility] - Health Organization [facility] - Health Address Unknown Phone Unavailable Care Team Providers Care Turntable Engineer Name Role Phone Mj Chow MD Unavailable Pcp, Patient Does Not Have A PCP Encounter Details Care Team Description Date Type Department Doctor Unassigned, [place] [address] [place] [address] 04/10/2019 Orders Only [facility] [address] [place] [address] Allergies Comments Active Allergy Reactions Severity Noted [...] as of this encounter (statuses as of 04/10/2019) Medications End Date Status Medication Sig Dispensed [...] as of this encounter (statuses as of 04/10/2019) Active Problems Problem Noted Date Familial hypercholesterolemia 04/04/2019 History of Helicobacter pylori infection 04/04/2019 History of [place] (myocardial infarction) 04/04/2019 Intermittent explosive disorder in [...] Stop PEC and 1:1 sitter. [facility]charge to [facility] if needed. Drug rash 11/29/2016 Overview: Overview: [...] angioplasty implant and graft 01/14/2011 Overview: Overview: [facility] 04/08/2010 LAD 80% occlusion. Pt states he also got stented 12/01 at [place], though reports not available Overview: Overview: [facility] 04/08/2010 LAD 80% occlusion. Pt states he also got stented 12/01 at [place], though reports not available Gastroesophageal reflux disease 12/21/2010 Hyperlipidemia 12/21/2010 Grand mal seizure disorder 11/21/2010 Overview: Overview: 10/07/2016 Allergic to Dilantin. Seizure disorder 11/21/2010 Coronary arteriosclerosis in [place] artery 09/20/2010 Overview: Last Assessment & Plan: [...] as of this encounter (statuses as of 04/10/2019) Immunizations Name Administration Dates Next Due Influenza [...] STENT Heart documented as of this encounter Procedures Comments Procedure Name Priority Date/Time Associated Diagnosis EXTERNAL PROVIDER RECORDS Routine 04/10/2019 12:01 AM FURNACE PROCESS PLANT OPERATOR documented in this encounter Results Not on filedocumented in this encounter
--- OUTSIDE RECORDS SUMMARY | 2019-04-24 21:11 | XMS REPORT | Summary of Care ---
Author Author [facility] - Health Organization [facility] - Health Address Unknown Phone Unavailable Care Team Providers Care Lead Applications Developer Name Role Phone Mj Chow MD Unavailable Pcp, Patient Does Not Have A PCP Reason for Visit * Reason Comments Suicidal ideation * Auth/Cert Referred By Contact Referred To Contact Status Reason Specialty Diagnoses / Procedures [facility]-Emergency Dept [address] [place] [phone] Emergency Medicine Encounter Details Care Team Description Date Type Department Mj Chow MD [address] [place] [address] [id number] Ozzy Dunn MD [address] [place] [phone] Suicidal ideation (Primary Dx) 04/05/2019 Emergency [facility] - [address] [place] [address] 04/06/2019 [place] [address] Allergies Comments Active Allergy Reactions Severity Noted [...] of Helicobacter pylori infection 04/04/2019 History of [place] (myocardial infarction) 04/04/2019 Intermittent explosive disorder in [...] Stop PEC and 1:1 sitter. [facility]. Drug rash 11/29/2016 Overview: Overview: [...] angioplasty implant and graft 01/14/2011 Overview: Overview: [facility] 04/08/2010 LAD 80% occlusion. Pt states he also got stented 12/01 at [place], though reports not available Overview: Overview: [facility] 04/08/2010 LAD 80% occlusion. Pt states he also got stented 12/01 at [place], though reports not available Gastroesophageal reflux disease 12/21/2010 Hyperlipidemia 12/21/2010 Grand mal seizure disorder 11/21/2010 Overview: Overview: 10/07/2016 Allergic to Dilantin. Seizure disorder 11/21/2010 Coronary arteriosclerosis in [place] artery 09/20/2010 Overview: Last Assessment & Plan: [...] Signs Reading Time Taken Comments Vital Sign 141/81 04/06/2019 8:47 AM MOLECULAR PATHOLOGIST Blood Pressure 73 04/06/2019 8:47 AM MOLECULAR PATHOLOGIST Pulse 36.6 C (97.9 F) 04/06/2019 8:47 AM MOLECULAR PATHOLOGIST Temperature 20 04/06/2019 8:47 AM MOLECULAR PATHOLOGIST Respiratory Rate 97% 04/06/2019 8:47 AM MOLECULAR PATHOLOGIST Oxygen Saturation - - Inhaled Oxygen Concentration 108.9 kg (240 lb) 04/05/2019 7:18 PM MOLECULAR PATHOLOGIST Weight - - Height 39.94 04/04/2019 10:06 PM MOLECULAR PATHOLOGIST Body Mass Index documented in this encounter Progress Notes * Livia Fuentes, FLASK HANDLER - 04/05/2019 8:13 PM MOLECULAR PATHOLOGIST ED SOCIAL WORK NOTE HIGH RISK SCREEN EDUARDO identified patient in High Risk Screening as someone who could benefit from S ocial Work evaluation and intervention. Patient is a 58 y/o, white/male who pre sented to the ED via EMS for a Mental Health Evaluation. Per patient report and chart review, he has been experiencing Suicidal Ideation with a plan to "take p ills". He reportedly lost his mother recently and is actively grieving. At thi s time, patient denies any Homicidal Ideation or A/V Hallucinations. He continu es to repeat that he does not want to be here and "wants to transfer now". He h as a history of Schizoaffective Disorder, Bipolar Type. Patient reported he has insurance coverage through Medicare and Medicaid; however, per Patient Registra tion, patient is no longer insured through Medicaid and no Medicare coverage exi sts. At this time patient is uninsured and is voluntary for admission. SW disc ussed patient's case with Dr. Chow. Patient's medical clearance is currently p ending. SW will call the [facility] Crisis Line to request a mental heal th screening once patient has been deemed medically clear. UPDATE @ 2100 Patient has been belligerent and threatening to leave the hospital. direct care staffer box d to call [facility] [place] Police to intervene. Dr. Chow completed a Clinical Affir mation of Mental Health Status for Emergency Apprehension by Law Enforcement due to patient's c/o of S/I with a plan to overdose on pills. Patient is behaving in an irrational manner, appears to have some mild intellectual deficits, and po ses a danger to self per his self report of S/I with plan. The medical work-up is in process. SW will continue to follow and assist as appropriate. UPDATE @ 2215 SW to patient's room per the request of YESENIA Bell/Charge Nurse. SW with multipl e attempts to calm and reassure patient that we are expediting his psychiatric t ransfer as quickly as possible. Patient continues to be verbally aggressive, ra ising his voice, and repeating his "rights are being violated". Patient states he wants to "leave by private ambulance and have them take me to [facility]. The legal and appropriate transfer process has been explained to patient multiple t imes by multiple staff members. [facility] Police was called once again to intervene, as patient continues to be argumentative and verbally aggressive, refusing to h ave his door closed. Per chart review, patient is now clear. SW called [facility] and requested a mental health screening. SW to follow and continue to intervene as needed. UPDATE @ 2222 SW received a call from MARLYS Nielsen with the [facility]. She informed she has received the screening request and is currently en route from [facility] er current ETA is [phone]. UPDATE ON 04/06/2019 @ 0005 MARLYS Gibson with [facility] arrived in the ED and completed a mental health scr eening on patient. In-patient psychiatric placement was recommended. SW subseq uently spoke to Jc with the Patient Placement Center @ and requ ested a psychiatric transfer be initiated. This SW's shift is ending. Dr. Enoch naqvi and direct care staffer was updated regarding the above. Livia Fuentes LCSW, [facility] Care Management Supervisor Looping Office: Email: [email or web address] CULAR PATHOLOGIST documented in this encounter Plan of Treatment [...] Comments Procedure Name Priority Date/Time Associated Diagnosis CBC WITH DIFFERENTIAL STAT 04/05/2019 Suicidal ideation 8:56 PM MOLECULAR PATHOLOGIST EXTRA TUBE URINE CULTURE STAT 04/05/2019 8:56 PM MOLECULAR PATHOLOGIST CBC WITH DIFFERENTIAL Routine 04/05/2019 Suicidal ideation 8:56 PM MOLECULAR PATHOLOGIST SERUM DRUG (IMMUNOASSAY) STAT 04/05/2019 Suicidal ideation - COMPREHENSIVE DRUG 8:56 PM MOLECULAR PATHOLOGIST SCREEN ETHANOL STAT 04/05/2019 Suicidal ideation 8:56 PM MOLECULAR PATHOLOGIST COMP. METABOLIC PANEL STAT 04/05/2019 Suicidal ideation (10994) 8:56 PM MOLECULAR PATHOLOGIST CREATINE KINASE STAT 04/05/2019 Suicidal ideation Add-On 8:56 PM MOLECULAR PATHOLOGIST GALV/CLC ONLY - URINE STAT 04/05/2019 Suicidal ideation DRUG (IMMUNOASSAY) - 8:00 PM MOLECULAR PATHOLOGIST COMPREHENSIVE DRUG SCREEN documented in this encounter Results * CREATINE KINASE (04/05/2019 8:56 PM MOLECULAR PATHOLOGIST) CK 192 33 - 194 U/L [facility] Specimen Blood - VENOUS Performing Organization Address City/[facility]/Zipcode Phone Number [facility] CLIA: [id number], [address] [place] [address] [facility] * EXTRA TUBE URINE CULTURE (04/05/2019 8:56 PM MOLECULAR PATHOLOGIST) Specimen Urine - URINE, CLEAN CATCH Performing Organization Address City/[facility]/Zipcode Phone Number [facility] CLIA: [id number], [address] [place] [address] [facility] * CBC WITH DIFFERENTIAL (04/05/2019 8:56 PM MOLECULAR PATHOLOGIST) WBC 9.48 4.20 - 10.70 [facility] 10*3/L SERVICES RBC 3.92 (L) 4.26 - 5.52 10*6/L [facility] HGB 10.6 (L) 12.2 - 16.4 g/dL [facility] HCT 33.3 (L) 38.4 - 49.3 % [facility] MCV 84.9 81.7 - 95.6 fL [facility] MCH 27.0 26.1 - 32.7 pg [facility] MCHC 31.8 31.2 - 35.0 g/dL [facility] RDW-SD 42.0 38.5 - 51.6 fL [facility] RDW-CV 13.5 12.1 - 15.4 % [facility] PLT 281 150 - 328 10*3/L [facility] MPV 9.0 (L) 9.8 - 13.0 fL [facility] NRBC/100 WBC 0.0 0.0 - 10.0 /100 WBCs [facility] NRBC x10^3 <0.01 10*3/L [facility] GRAN MAT (NEUT) 76.4 % [facility] % SERVICES IMM GRAN % 0.30 % [facility] LYMPH % 12.4 % [facility] MONO % 8.5 % [facility] EOS % 2.1 % [facility] BASO % 0.3 % [facility] GRAN MAT 7.23 (H) 1.99 - 6.95 10*3/uL [facility] x10^3(ANC) SERVICES IMM GRAN x10^3 0.03 0.00 - 0.06 10*3/uL [facility] LYMPH x10^3 1.18 1.09 - 3.23 10*3/uL [facility] MONO x10^3 0.81 0.36 - 1.02 10*3/uL [facility] EOS x10^3 0.20 0.06 - 0.53 10*3/uL [facility] BASO x10^3 0.03 0.01 - 0.09 10*3/uL [facility] Specimen Blood - VENOUS Performing Organization Address City/[facility] Phone Number [facility] CLIA: [id number], [address] [place] [address] [facility] * ETHANOL (04/05/2019 8:56 PM MOLECULAR PATHOLOGIST) ALCOHOL <10 mg/dL [facility] Specimen Blood - VENOUS Narrative Performed At Toxic Greater than or equal to 80 mg/dL. [facility] NOTE: Whole blood values are approximately 10% to 15% lower than serum and SERVICES plasma. Performing Organization Address City/[facility] Hospitalcoms Phone Number [facility] CLIA: [id number], [address] [place] [address] [facility] * SERUM DRUG (IMMUNOASSAY) - COMPREHENSIVE DRUG SCREEN (04/05/2019 8:56 PM MOLECULAR PATHOLOGIST) CYNDEE S Negative Negative [facility] BENZO S Negative Negative [facility] TRICYCLIC Negative Negative [facility] Specimen Blood - VENOUS Narrative Performed At Serum Drug Screen Cutoff Ranges [facility] Barbiturates - 3 mcg/mL SERVICES Benzodiazepines - 50 ng/mL TCA - 300 ng/mL Test developed and characteristics determined by [facility] Services. The results are to be used only for medical (i.e., treatment) purposes. Unconfirmed screening results must not be used for non-medical purposes (e.g., employment testing, legal testing). Performing Organization Address City/State/[facility] Hospitalcode Phone Number [facility] CLIA: [id number], [address] [place], [place] [address] [facility] * COMP. METABOLIC PANEL (99816) (04/05/2019 8:56 PM MOLECULAR PATHOLOGIST) NA 136 135 - 145 mmol/L [facility] K 3.8 3.5 - 5.0 mmol/L [facility] CL 100 98 - 108 mmol/L [facility] CO2 TOTAL 26 23 - 31 mmol/L [facility] AGAP 10 2 - 16 [facility] BUN 19 7 - 23 mg/dL [facility] GLUCOSE 122 (H) 70 - 110 mg/dL [facility] CREATININE 0.67 0.60 - 1.25 mg/dL [facility] TOTAL BILI 0.5 0.1 - 1.1 mg/dL [facility] CALCIUM 9.1 8.6 - 10.6 mg/dL [facility] T PROTEIN 7.4 6.3 - 8.2 g/dL [facility] ALBUMIN 4.1 3.5 - 5.0 g/dL [facility] ALK PHOS 87 34 - 122 U/L [facility] ALTv 48 5 - 50 U/L [facility] AST(SGOT) 37 13 - 40 U/L [facility] eGFR 121.0 mL/min/1.73m2 [facility] Calculation SERVICES (Non-) eGFR 146.7 mL/min/1.73m2 [facility] Calculation SERVICES () Specimen Blood - VENOUS Narrative Performed At Association of Glomerular Filtration Rate (GFR) and Staging of Kidney Disease* [facility] + + + + SERVICES | GFR (mL/min/1.73 m2) | With Kidney Damage | Without Kidney Damage + + + + | >90 | Stage one | Normal + + + + | 60-89 | Stage two | Decreased GFR + + + + | 30-59 | Stage three | Stage three + + + + | 15-29 | Stage four | Stage four + + + + | <15 (or dialysis) | Stage five | Stage five + + + + *Each stage assumes the associated GFR level has been in effect for at least three months. Stages 1 to 5, with or without kidney disease, indicate chronic kidney disease. Notes: Determination of stages one and two (with eGFR >59mL/min/1.73 m2) requires estimation of kidney damage for at least three months as defined by structural or functional abnormalities of the kidney, manifested by either: Pathological abnormalities or Markers of kidney damage (including abnormalities in the composition of the blood or urine or abnormalities in imaging tests). Performing Organization Address City/[facility] Hospitalcode Phone Number [facility] CLIA: [id number], [address] [place] [address] [facility] * GALV/CLC ONLY - URINE DRUG (IMMUNOASSAY) - COMPREHENSIVE DRUG SCREEN (04/05/2019 8:00 PM MOLECULAR PATHOLOGIST) AMPHET Negative Negative [facility] CYNDEE U Negative Negative [facility] BENZO U Negative Negative [facility] Cocaine Negative Negative [facility] Metabolite SERVICES METHADONE Negative Negative [facility] OPIATES Presumptive Positive (A) Negative [facility] PCP Negative Negative [facility] THC Negative Negative [facility] Specimen Urine - URINE, CLEAN CATCH Narrative Performed At Urine Drug Cutoff Ranges [facility] Cocaine: 150 ng/mL SERVICES Benzodiazepines: 200 ng/mL Methadone: 300 ng/mL Amphetamine: 1,000 ng/mL Opiates: 300 ng/mL Cannabinoids: 50 ng/mL Phencyclidine: 25 ng/mL Barbiturates: 200 ng/mL The results are to be used only for medical (i.e., treatment) purposes. Unconfirmed screening results must not be used for non-medical purposes (e.g., employment testing, legal testing). Performing Organization Address [facility] Hospital[facility] Phone Number [facility] CLIA: [id number], [address] [place] [address] [facility] documented in this encounter Visit Diagnoses Diagnosis Suicidal ideation - Primary documented in this encounter Administered Medications Action Date Dose Rate Site Medication Order MAR Action LORazepam (ATIVAN) tablet 1 mg 1 mg, Oral, ONCE, 1 dose, 04/06/19 at 1130, RIZWAN Action Date Dose Rate Site Medication Order MAR Action 04/05/2019 9:05 PM MOLECULAR PATHOLOGIST 1 mg LORazepam (ATIVAN) tablet 1 mg Given 1 mg, Oral, ONCE, 1 dose, [place] 04/05/19 at 2045, RIZWAN documented in this encounter
== END 2019-04-24 21:00 | disposition left against medical advice (07) ==
LOC: ER 20:55
DX: R07.9 Chest pain, unspecified (principal)